=== PATIENT | male | born 1960 | race Caucasian/White ===

== ENCOUNTER 2023-11-07 21:46 | Emergency (ER) | payer OTHER, SELFPAY ==
[2023-11-07] VITALS (7 sets, daily range): BP systolic 156–192; BP diastolic 91–102; PULSE 55–68; RESP 20; TEMP 35.3–37.2; O2SAT 97–100
--- NOTE | ~2023-11-07 | XR_ITS ---
Portable chest x-ray Comparison: None Clinical History: Hypoglycemia Findings: There is mild haziness in the lung bases and peripheral upper lobe. Cardiomediastinal marcie houette is prominent, status post aortic valve replacement. Bones and soft tissues are unremarkable. Impression: Peripheral and bibasilar haziness. Findings could reflect chronic interstitial disease versus possibl y mild pulmonary edema or atypical infection. Correlate clinically. Consider CT to further evaluate. Status post aortic valve placement. Reviewed, dictated and finalized at location . E CLERK Impression: Peripheral and bibasilar haziness. Findings could reflect chronic interstitial disease versus possibly mild pulmonary edema or atypical infection. Correlate c linically. Consider CT to further evaluate. Status post aortic valve placement.
--- NOTE | 2023-11-07 22:03 | ECG_ITS ---
Measurements Intervals [place] Rate: 51 P: -20 IA: 237 QRS: -44 QRSD: 107 T: 109 QT: 436 QTc: 405 Interpretive Statements SINUS BRADYCARDIA WITH FIRST DEGREE AV BLOCK LEFT AXIS DEVIATION LEFT VENTRICULAR HYPERTROPHY AND ST-T CHANGE ANTEROSEPTAL INFARCT, AGE INDETERMINATE BASELINE ARTIFACT- I, II, III, AVR, AVL, V4-V6 ABNORMAL ECG NO PREVIOUS ECG AVAILABLE FOR COMPARISON Electronically Signed On 11-08-2023 6:41:17 [employer] by Richar Griffin D.O.
[2023-11-07 23:54] LABS: Basophils Absolute Auto 0.1 K/mm3 (0.0-0.1); Basophils Percent Auto 0.8 % (0.2-1.2); Eosinophils Absolute Auto 0.2 K/mm3 (0-0.3); Hematocrit 57.9 % (42.0-52.0); Hemoglobin 17.1 g/dL (14.0-18.0); Immature Granulocyte Absolute 0.07 K/mm3 (0.00-0.031); Immature Granulocyte Percent A 0.4 % (0-0.5); Immature Platelet Fraction Pct 12.5 % (0.9-11.2); Lymphocytes Percent Auto 23.2 % (18.3-44.2); Mean Corpuscular HGB Conc 29.5 g/dl (32-36); Mean Corpuscular Hemoglobin 23.3 pg (26-34); Mean Platelet Volume 11.2 fl (7.4-10.4); Monocytes Absolute Auto 1.3 K/mm3 (0.1-0.6); Monocytes Percent Auto 7.8 % (2.6-8.5); Neutrophils Absolute Auto 11.2 K/mm3 (1.3-6.7); Neutrophils Percent Auto 66.8 % (45.5-73.1); Platelet Count Result 136 k/mm3 (150-375); Red Blood Count 7.33 M/mm3 (4.6-6.20); Red Cell Distribution Width 21.7 % (11.5-14.5); White Blood Count 16.8 K/mm3 (4.5-10.0)
[2023-11-08 00:12] VITALS: BP 165/90; PULSE 60; RESP 16; O2SAT 99
[2023-11-08 00:24] LABS: Large Platelets Present; Platelet Estimate Adequate (Adequate)
[2023-11-08 00:25] LABS: Anisocytosis 1+ (NORMAL); Poikilocytosis 1+ (NORMAL); Schistocytes Rare (NORMAL)
[2023-11-08 01:15] LABS: Alanine Aminotransferase 19 U/L (6-50); Albumin Level 3.9 g/dL (3.5-5.1); Alkaline Phosphatase 120 U/L (38-126); Anion Gap 11 mmol/L (8-16); Aspartate Amino Transferase 27 U/L (17-59); Bilirubin,Total 0.6 mg/dL (0.2-1.3); Blood Urea Nitrogen 31 mg/dL (9-20); Calcium 9.1 mg/dL (8.4-10.2); Carbon Dioxide 22 mmol/L (22-30); Chloride 100 mmol/L (98-107); Estimated CRCL calculation 55 ml/min; Estimated Glomerular Filt Rate 44; Glucose 282 mg/dL (65-110); Potassium 4.4 mmol/L (3.4-5.0); Sodium 133 mmol/L (137-145)
--- NOTE | 2023-11-08 01:25 | ED.GENADULT ---
HPI - General Adult General Chief complaint: Altered Mental Status Stated complaint: low blood sugar, decreased responsiveness. Time Seen by Provider: 11/08/23 00:29 Source: patient and family () Limitations: no limitations History of Present Illness HPI narrative: Patient is a 62-year-old male presents to the emergency department for a period of poor responsiveness. Around 7:00 p.m. patient had an episode of decreased responsiveness which she has had the past and he has a continuous blood sugar monitoring device and his blood sugar was in the low 50s and administered glucagon pen and also gave him normal sugar however patient was not rapidly improving as he has done and passed and they called EMS which they have had to do many times in the past and they gave him some glucose paste and patient improved. Patient denies any current complaints and feels well. Patient has been ambulatory without any difficulty. Patient denies any recent injuries or recent illness. Patient admits to being a diabetic and uses insulin and has been taking his insulin as prescribed without any recent changes to his medications and prior to the onset of the low blood sugar he 80 in a meal of spaghetti and meatballs and was in his normal state of health. Patient denies use of oral diabetic medications. Patient was sitting down during the period of decreased responsiveness did not fall or injure himself. Patient was also told that his heart rate was low upon EMS arrival in the 50s and he usually is in the 60s and also takes metoprolol regularly without any recent changes to his medications and sent him here for further evaluation. Patient admits to history of pancreatic transplant service at [facility] for pancreatic cancer is currently in remission for the past 5 years and is not on any chemotherapy. Patient denies chest pain, shortness of breath, cough, fever, urinary discomfort, diarrhea, melena, hematochezia, vomiting, nausea, abdominal pain, numbness, weakness, sore throat, nasal congestion, headache, vision changes, rash. Related Data Allergies Allergy/AdvReac Type Severity Reaction Status Date / Time No Known Allergies Allergy Verified 11/08/23 01:30 Review of Systems Review of Systems: A 10 system review of systems was completed on the patient and is negative except for what is stated in the HPI. Nursing and ancillary documentation was reviewed. PMFSH Comments At time of signature, I have reviewed and agree with nursing past medical, surgical, social and family history unless otherwise noted. Please see the nursing chart for further information. There is no relevant family history pertinent to the presenting complaint. Exam Narrative: CONST: No acute distress. Well nourished. HENMT: Head is normocephalic and atraumatic. Tacky mucous membranes. No posterior oropharynx erythema. EYES: No conjunctival icterus, injection, or pallor. PERRL. NECK: No meningeal signs. RESP: Able to speak in full sentences. Normal respiratory effort. CTAB. CARDIO: Regular rate. Regular rhythm. 2+ DP and radial pulses bilaterally. GI: Nondistended. No tenderness to palpation. Soft. Multiple abdominal surgical scars. : No CVA tenderness to palpation. SKIN: No rashes or lesions noted on exposed skin. NEURO: Oriented x3. Moves all extremities. No focal neurological deficits. EXTREM/MSK/BACK: No pedal edema. PSYCH: Normal affect. Course Vital Signs Vital signs: Vital Signs Temperature 98.9 F 11/07/23 21:56 Pulse Rate 55 L 11/07/23 21:56 Respiratory Rate 20 11/07/23 21:56 Blood Pressure 156/91 H 11/07/23 21:56 Pulse Oximetry 98 11/07/23 21:56 Oxygen Delivery Room Air 11/07/23 21:56 Temperature 98 F 11/08/23 02:50 Pulse Rate 60 11/08/23 02:50 Respiratory Rate 15 11/08/23 02:50 Blood Pressure 153/78 H 11/08/23 02:50 Pulse Oximetry 99 11/08/23 02:50 Oxygen Delivery Room Air 11/07/23 22:47 Medical
[2023-11-08] MEDS: Please add drug allergy info to patient profile. 1 EACH XX (01:30)
[2023-11-08] MEDS: SODIUM CHLORIDE 0.9% IV 1,000 ML 999 ML IV CONT (01:34)
[2023-11-08 01:43] VITALS: PULSE 64; RESP 18
[2023-11-08 01:45] VITALS: PULSE 64; RESP 12
[2023-11-08 01:47] VITALS: BP 169/94; PULSE 64; RESP 25
[2023-11-08 01:47] LABS: Lipase 32 U/L (23-300)
[2023-11-08 02:00] LABS: Troponin I < 0.012 ng/mL (0.000-0.034)
[2023-11-08 02:36] LABS: Appearance Urine Clear (Clear); Bilirubin Urine Negative (Negative); Blood Urine Negative (Negative); Color Urine Yellow (Yellow); Glucose Urine UA 3+ mg/dL (Negative); Ketones Urine Negative (Negative); Leukocyte Esterase Ur Negative LEU/UL (Negative); Nitrate Urine Negative (Negative); Protein Urine Negative (Negative); Specific Grav Ur 1.011 (1.001-1.035); Urobilinogen Urine 0.2 mg/dL (<2.0); pH Urine 6.5 (5.0-9.0)
[2023-11-08 02:37] LABS: Glucose Point of Care 408 mg/dl (65-105)
[2023-11-08 02:50] VITALS: BP 153/78; PULSE 60; RESP 15; TEMP 36.6; O2SAT 99
[2023-11-08 03:06] LABS: Add Urine Microscopic? NO
[2023-11-08 07:09] LABS: Glucose Point of Care 172 mg/dl (65-105)
== END 2023-11-08 02:51 | disposition home or self-care (01) ==
PROVIDERS: Radiology Diagnostic Radiology; Emergency Provider Student in an Organized Health Care Education/Training Program
DX: E11.649 Type 2 diabetes mellitus with hypoglycemia without coma (principal); Z94.83 Pancreas transplant status; Z95.2 Presence of prosthetic heart valve; Z85.07 Personal history of malignant neoplasm of pancreas; Z79.4 Long term (current) use of insulin; R00.1 Bradycardia, unspecified; I51.7 Cardiomegaly; R94.31 Abnormal electrocardiogram [ECG] [EKG]
CPT/HCPCS: 36415; 71045; 80053; 81003; 82948; 83690; 83735; 84443; 84484; 85025; 85055; 93005; 96360; 99284; J7030

== ENCOUNTER 2025-08-09 08:56 | Emergency (ER) | payer BC, SELFPAY ==
--- NOTE | ~2025-08-09 | XR_ITS ---
Examination: XR ankle RT min 3V Clinical History: ankle pain, wound vac, diabetes, r/o osteomyelitis Comparison: None Technique: 4 views right ankle Findings/impression: 1. No evidence of osteomyelitis. 2. No fracture or other acute bony abnormality. Reviewed, dictated and finalized at location R.
[2025-08-09 09:11] VITALS: BP 129/85; PULSE 58; RESP 20; TEMP 36.1; O2SAT 99
[2025-08-09 09:16] VITALS: RESP 20
--- NOTE | 2025-08-09 09:27 | ED.GENADULT ---
HPI - General Adult General Chief complaint: Recheck/Abnormal Lab/Rx Stated complaint: surgery 07/27 concern for sepsis per Time Seen by Provider: 08/09/25 09:15 History of Present Illness HPI narrative: 64-year-old male history of liver transplant, pancreatic cancer, AFib Sheryl presents to the ER complaining of ?not feeling well?. states that patient's temperature this morning was 957 is concerned he sepsis. Patient has a wound VAC to his right lateral malleolus after surgical debridement. Patient is under the care of Dr. Herrera from [facility]. Patient denies fevers, cough, congestion, abdominal pain, ankle pain. States has not observed purulent drainage from the wound VAC. Related Data Allergies Allergy/AdvReac Type Severity Reaction Status Date / Time No Known Allergies Allergy Verified 08/09/25 08:58 Review of Systems Review of Systems: All systems reviewed & are unremarkable except as noted in HPI and below Exam Const: General: healthy appearing, no acute distress and alert Nutritional Appearance: well nourished Orientation/consciousness: patient oriented x3 Limitations: no limitations HENMT: Head: normal to inspection Eyes: Conjunctivae: conjunctivae normal Pupils: Equal, round and reactive pupils present Chest: Chest palpation & inspection: normal inspection of the chest Resp: Effort & Inspection: normal respiratory effort Auscultation: clear to auscultation bilaterally Cardio: Rate: regular rate Rhythm: regular rhythm Skin: General skin exam: normal color Other: RLE: Wound vac noted to lateral malleolus. No purulent discharge noted. No surrounding erythema, edema or warmth. NVDI Neuro: General: patient oriented x3, moves all extremities and CN's II-XI intact bilaterally Speech: normal speech Gait exam (Neuro): Normal gait present Extrem: General: normal to inspection and no pedal edema Psych: Mental Status: mental status grossly normal Affect: normal affect Attitude: cooperative Course Vital Signs Vital signs: Vital Signs Temperature 36.1 C L 08/09/25 09:11 Pulse Rate 58 L 08/09/25 09:11 Respiratory Rate 20 08/09/25 09:11 Blood Pressure 129/85 08/09/25 09:11 Pulse Oximetry 99 08/09/25 09:11 Temperature 36.1 C L 08/09/25 09:11 Pulse Rate 62 08/09/25 10:53 Respiratory Rate 18 08/09/25 10:53 Blood Pressure 136/86 08/09/25 10:53 Pulse Oximetry 98 08/09/25 10:53 Medical Decision Making MDM Narrative Medical decision making narrative: In summary: 64-year-old male presents to the ER of the concerning for possible sepsis. The patient recently had Vital Signs Vital Signs: Vital Signs Temperature 36.1 C L 08/09/25 09:11 Pulse Rate 58 L 08/09/25 09:11 Respiratory Rate 20 08/09/25 09:11 Blood Pressure 129/85 08/09/25 09:11 Pulse Oximetry 99 08/09/25 09:11 Temperature 36.1 C L 08/09/25 09:11 Pulse Rate 62 08/09/25 10:53 Respiratory Rate 18 08/09/25 10:53 Blood Pressure 136/86 08/09/25 10:53 Pulse Oximetry 98 08/09/25 10:53 Lab Data 08/09/25 09:40 08/09/25 09:40 Labs: Lab Results 08/09/25 08/09/25 08/09/25 Range/Units 09:12 09:40 09:46 WBC 9.3 (4.5-10.0) K/mm3 RBC 7.43 H (4.6-6.20) M/mm3 Hgb 16.3 (14.0-18.0) g/dL Hct 53.8 H (42.0-52.0) % MCV 72.4 L (80-100) fl MCH 21.9 L (26-34) pg MCHC 30.3 L (32-36) g/dl RDW 20.5 H (11.5-14.5) % Plt Count 246 D (150-375) k/mm3 MPV 9.2 (7.4-10.4) fl Immature Gran % (Auto) 0.3 (0-0.5) % Neut % (Auto) 53.9 (45.5-73.1) % Lymph % (Auto) 32.2 (18.3-44.2) % [place] % (Auto) 10.8 H (2.6-8.5) % Eos % (Auto) 1.6 (0-4.4) % Baso % (Auto) 1.2 (0.2-1.2) % Lymph # (Auto) 3.01 (0.9-3.2) K/mm3 [place] # (Auto) 1.0 H (0.1-0.6) K/mm3 Eos # (Auto) 0.2 (0-0.3) K/mm3 Baso # (Auto) 0.1 (0.0-0.1) K/mm3 Abs Immat Gran (auto) 0.03 (0.00-0.031) K/mm3 Absolute Neuts (auto) 5.0 (1.3-6.7) K/mm3 Absolute Nucleated RBC 0.000 (0.0-0.012) K/mm3 Band Neutrophils % Not Reportable Nucleated RBC % 0.0 (0.0-0.2) % Platelet Estimate Adequate (Adequate) Anisocytosis 1+ Microcytosis Occasional (NORMAL) Schistocytes None seen ESR 1 (0-20) mm/hr Sodium 133 L (137-145) mmol/L Potassium 4.5 (3.4-5.0) mmol/L Chloride 102 (98-107) mmol/L Carbon Dioxide 21 L (22-30) mmol/L Anion Gap 10 (4-12) mmol/L BUN 29 H (9-20) mg/dL Creatinine 1.43 H (0.7-1.3) mg/dL Estim Creat Clear Calc 52 ml/min Estimated GFR 50 L (59 - ) Glucose 273 H (65-110) mg/dL POC Capillary Glucose 267 H (65-105) mg/dl Lactic Acid 1.2 (0.7-2.0) mmol/L Calcium 9.5 (8.4-10.2) mg/dL Total Bilirubin 0.8 (0.2-1.3) mg/dL AST 28 (17-59) U/L ALT 22 (6-50) U/L Alkaline Phosphatase 73 (38-126) U/L C-Reactive Protein 7.2 H (<1.0) mg/dL Total Protein 7.7 (6.3-8.2) g/dL Albumin 3.9 (3.5-5.1) g/dL Influenza A (RT-PCR) Negative (Negative) Influenza B (RT-PCR) Negative (Negative) RSV (RT-PCR) Negative (Negative) SARS-CoV-2 RNA (RT-PCR) Negative (Negative) Discharge Plan Discharge Clinical Impression: Fatigue, Chronic kidney disease, Hyperglycemia Patient Disposition: Home Condition: Stable Instructions: Antibiotic Form, Fatigue (ED) Patient Language: Azeri Follow-up/Referrals: UNKNOWN,DOCTOR [Non-Staff] Time of Disposition: 12:00
--- OUTSIDE RECORDS SUMMARY | 2025-08-09 09:30 | XMS_ITS | Encounter Summary ---
Author Organization [facility] Address [address] [place] [address] Care Team Providers Care Kitchen Mechanic Name Role Phone Juan Laguerre MD Primary Care Provider [phone] Bro AWAN MD, Aubrey Lane Unavailable [phone] Jaki Nieves PhD Unavailable [phone] Source Comments In the event that this is information that is protected by federal Confidentiality of Substance User Disorder Patient Records, 42 CFR Part 2 prohibits the unauthorized disclosure of these records.[facility] Encounter Details Date Type Department Care Team (Late Contact Info) Description 07/08/2023 Orders Only [place] Transplant Surgery [address] [facility]th [address] [place] [address] Mee Michele RN Social History Tobacco Use Types Packs/Day Years Used Date Smoking Tobacco: Former Cigarettes - 2011 Smokeless Tobacco: Never Alcohol Use Standard Drinks/Week Comments No 0 (1 standard drink = 0.6 oz pur e alcohol) Sex and Gender Information Value Date Recorded Sex Assigned at Not on file Legal Sex Male 6:30 PM CDT Gender Identity Not on file Sexual Orientation Not on file documented as of this encounter Plan of Treatment Upcoming Encounters Date Type Department Care Team ([facility] Contact Info) Description 07/15/2026 1:00 PM CDT Office Visit [place] Transplant Surgery [address] [facility] [place], [place] [id number] Apt confirmed-EH documented as of this encounter Visit Diagnoses Diagnosis Kidney transplant recipient 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) Liver replaced by transplant Encounter for monitoring immunomodulating therapy Encounter for therapeutic drug monitoring documented in this encounter Care Teams Kitchen Mechanic Relationship Specialty Start Date End Date Juan Laguerre MD [address] [id number] PCP - General Family Medicine 01/02/18 Aubrey Crabtree III, MD [address] [address] Hematology and Medical Oncology 10/01/18 Jaki Nieves, PhD [address] [facility] [address] [place] [address] Genetic Counseling 11/27/18 documented as of this encounter
--- OUTSIDE RECORDS SUMMARY | 2025-08-09 09:30 | XMS_ITS | Encounter Summary ---
Author Organization [facility] Address [address] [place] [address] Care Team Providers Care Professor Of English Name Role Phone Juan Laguerre MD Primary Care Provider [phone] Bro AWAN MD, Aubrey Lane Unavailable [phone] Jaki Nieves PhD Unavailable [phone] Source Comments In the event that this is information that is protected by federal Confidentiality of Substance User Disorder Patient Records, 42 CFR Part 2 prohibits the unauthorized disclosure of these records.[facility] Encounter Details Date Type Department Care Team (Late Contact Info) Description 06/17/2023 Orders Only [place] Transplant Surgery [address] [facility] [place] [address] Mee Michele RN Social History Tobacco Use [...] Upcoming Encounters Date Type Department Care Team ([facility] Contact Info) Description 07/15/2026 1:00 PM CDT Office Visit [place] Transplant Surgery [address] [facility] [place], [place] [address] Apt confirmed-EH documented as of this encounter Visit Diagnoses Diagnosis Kidney transplant recipient 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) Liver replaced by transplant Encounter for monitoring immunomodulating therapy Encounter for therapeutic drug monitoring documented in this encounter Care Teams Professor Of English Relationship Specialty Start Date End Date Juan Laguerre MD [address] [phone] PCP - General Family Medicine 01/02/18 Aubrey Crabtree III, MD [address] [address] Hematology and Medical Oncology 10/01/18 Jaki Nieves, PhD [address] [facility] [address] [place] [address] Genetic Counseling 11/27/18 documented as of this encounter
--- OUTSIDE RECORDS SUMMARY | 2025-08-09 09:30 | XMS_ITS | Encounter Summary ---
Author Organization [facility] Address [address] [place] [address] Care Team Providers Care Bottle House Quality Control Technician Name Role Phone Juan Laguerre MD Primary Care Provider [phone] Bro AWAN MD, Aubrey Lane Unavailable [phone] Jaki Nieves PhD Unavailable [phone] Source Comments In the event that this is information that is protected by federal Confidentiality of Substance User Disorder Patient Records, 42 CFR Part 2 prohibits the unauthorized disclosure of these records.[facility] Encounter Details Date Type Department Care Team (Late Contact Info) Description 04/08/2023 Orders Only [place] Transplant Surgery [address] [facility] [place] [address] Mee Michele RN Social History Tobacco Use [...] Upcoming Encounters Date Type Department Care Team ([facility] Contact Info) Description 07/15/2026 1:00 PM CDT Office Visit [place] Transplant Surgery [address] [facility] [place], [place] [address] Apt confirmed-EH documented as of this encounter Visit Diagnoses Diagnosis Kidney transplant recipient 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) Liver replaced by transplant Encounter for monitoring immunomodulating therapy Encounter for therapeutic drug monitoring documented in this encounter Care Teams Bottle House Quality Control Technician Relationship Specialty Start Date End Date Juan Laguerre MD [address] [phone] PCP - General Family Medicine 01/02/18 Aubrey Crabtree III, MD [address] [address] Hematology and Medical Oncology 10/01/18 Jaki Nieves, PhD [address] [facility] [address] [place] [address] Genetic Counseling 11/27/18 documented as of this encounter
--- OUTSIDE RECORDS SUMMARY | 2025-08-09 09:30 | XMS_ITS | Encounter Summary ---
Author Organization [facility] Address [address] [place] [address] Care Team Providers Care Photograph Inspector Name Role Phone Juan Laguerre MD Primary Care Provider [phone] Bro AWAN MD, Aubrey Lane Unavailable [phone] Jaki Nieves PhD Unavailable [phone] Source Comments In the event that this is information that is protected by federal Confidentiality of Substance User Disorder Patient Records, 42 CFR Part 2 prohibits the unauthorized disclosure of these records.[facility] Encounter Details Date Type Department Care Team (Late Contact Info) Description 04/15/2023 Orders Only [place] Transplant Surgery [address] [facility] [place] [address] Mee Michele RN Social History Tobacco Use [...] Upcoming Encounters Date Type Department Care Team ([facility] Contact Info) Description 07/15/2026 1:00 PM CDT Office Visit [place] Transplant Surgery [address] [facility] [place], [place] [address] Apt confirmed-EH documented as of this encounter Visit Diagnoses Diagnosis Kidney transplant recipient 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) Liver replaced by transplant Encounter for monitoring immunomodulating therapy Encounter for therapeutic drug monitoring documented in this encounter Care Teams Photograph Inspector Relationship Specialty Start Date End Date Juan Laguerre MD [address] [phone] PCP - General Family Medicine 01/02/18 Aubrey Crabtree III, MD [address] [address] Hematology and Medical Oncology 10/01/18 Jaki Nieves, PhD [address] [facility] [address] [place] [address] Genetic Counseling 11/27/18 documented as of this encounter
--- OUTSIDE RECORDS SUMMARY | 2025-08-09 09:30 | XMS_ITS | Encounter Summary ---
Author Organization [facility] Address [address] [place] [address] Care Team Providers Care Residential Service Technician Name Role Phone Juan Laguerre MD Primary Care Provider [phone] Bro AWAN MD, Aubrey Lane Unavailable [phone] Jaki Nieves PhD Unavailable [phone] Source Comments In the event that this is information that is protected by federal Confidentiality of Substance User Disorder Patient Records, 42 CFR Part 2 prohibits the unauthorized disclosure of these records.[facility] Encounter Details Date Type Department Care Team (Late Contact Info) Description 03/25/2023 Orders Only [place] Transplant Surgery [address] [facility] [place] [address] Mee Michele RN Social History Tobacco Use [...] Upcoming Encounters Date Type Department Care Team ([facility] Contact Info) Description 07/15/2026 1:00 PM CDT Office Visit [place] Transplant Surgery [address] [facility] [place], [place] [address] Apt confirmed-EH documented as of this encounter Visit Diagnoses Diagnosis Kidney transplant recipient 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) Liver replaced by transplant Encounter for monitoring immunomodulating therapy Encounter for therapeutic drug monitoring documented in this encounter Care Teams Residential Service Technician Relationship Specialty Start Date End Date Juan Laguerre MD [address] [phone] PCP - General Family Medicine 01/02/18 Aubrey Crabtree III, MD [address] [address] Hematology and Medical Oncology 10/01/18 Jaki Nieves, PhD [address] [facility] [address] [place] [address] Genetic Counseling 11/27/18 documented as of this encounter
--- OUTSIDE RECORDS SUMMARY | 2025-08-09 09:30 | XMS_ITS | Encounter Summary ---
Author Organization [facility] Address [address] [place] [address] Care Team Providers Care Talent Acquisition Consultant Name Role Phone Juan Laguerre MD Primary Care Provider [phone] Bro AWAN MD, [place] Lane Unavailable [phone] Jaki Nieves PhD Unavailable [phone] Source Comments In the event that this is information that is protected by federal Confidentiality of Substance User Disorder Patient Records, 42 CFR Part 2 prohibits the unauthorized disclosure of these records.[facility] Encounter Details Date Type Department Care Team (Late st Contact Info) Description 04/06/2019 Orders Only NM Transplant Surgery [address] [facility], 19th Floor [address] [place], [place] [address] Cathleen Gallegos MD [address] [facility] [address], [place] [address] Social History Tobacco Use Types Packs/Day Years [...] Upcoming Encounters Date Type Department Care Team (Late st Contact Info) Description 07/15/2026 1:00 PM CDT Office Visit [place] Transplant Surgery [address] [facility], 19th Floor [address] [place] [address] Apt confirmed-EH documented as of this encounter Procedures Procedure Name Priority Date/Time Associated Diagnosis Comments CBC AND DIFFERENTIAL Routine 04/09/2019 8:12 AM CDT Kidney transplant 01/02/2008 Liver transplant 01/02/2008 HEPATIC FUNCTION PANEL Routine 04/09/2019 8:12 AM CDT Kidney transplant 01/02/2008 Liver transplant 01/02/2008 BASIC METABOLIC PANEL Routine 04/09/2019 8:12 AM CDT Kidney transplant 01/02/2008 Liver transplant 01/02/2008 documented in this encounter Results * Hepatic function panel (04/09/2019 8:12 AM CDT) Total Bilirubin - External 0.4 0.3 - 1.0 mg/dL EXTERNAL LAB Direct Bilirubin - External 0.06 0.03 - 0.18 mg/dL EXTERNAL LAB Alkaline Phos - External 73 34 - 104 U/L EXTERNAL LAB AST (SGOT) - External 15 13 - 39 U/L EXTERNAL LAB ALT (SGPT) - External 11 7 - 52 U/L EXTERNAL LAB Total Protein - External 6.9 6.4 - 8.9 g/dL EXTERNAL LAB Albumin - External 3.9 3.5 - 5.7 g/dL EXTERNAL LAB Blood specimen (specimen) 04/09/2019 8:12 AM CDT Narrative EXTERNAL LAB - 04/16/2019 3:30 PM CDT Verified by Monie Siddiqui on 04/16/2019. us Cathleen Gallegos MD CHEMISTRY ORDERABLES Final Resul t EXTERNAL LAB * (ABNORMAL) Basic Metabolic Panel (04/09/2019 8:12 AM CDT) Glucose - External 200(H) 70 - 105 mg/dL EXTERNAL LAB Urea Nitrogen - External 28(H) 7 - 25 mg/dL EXTERNAL LAB Creatinine - External 1.6(H) 0.7 - 1.3 mg/dL EXTERNAL LAB Sodium - External 137 136 - 145 mEq/L EXTERNAL LAB Potassium - External 5.3(H) 3.5 - 5.1 mEq/L EXTERNAL LAB Chloride - External 105 98 - 107 mEq/L EXTERNAL LAB Calcium - External 9.0 8.6 - 10.3 mg/dL EXTERNAL LAB Anion Gap - External 11.3 7.0 - 15.0 mEq/L EXTERNAL LAB GFR(Others) - External 44.6(L) >60.0 ml/min EXTERNAL LAB GFR() - External 53.9(L) >60.0 ml/min EXTERNAL LAB Blood specimen (specimen) 04/09/2019 8:12 AM CDT Narrative EXTERNAL LAB - 04/16/2019 3:30 PM CDT Verified by Monie Siddiqui on 04/16/2019. us Cathleen Gallegos MD CHEMISTRY ORDERABLES Final Resul t EXTERNAL LAB * (ABNORMAL) CBC with Differential (04/09/2019 8:12 AM CDT) Pathologist [facility] White Blood Cells - External 9.7 4.0 - 10.0 uL EXTERNAL LAB Hemoglobin - External 12.6(L) 13.7 - 17.5 g/dL EXTERNAL LAB Hematocrit - External 40.4 40.1 - 51.0 % EXTERNAL LAB Platelets - External 252 163 - 369 uL EXTERNAL LAB Red Blood Cells - External 4.68 4.63 - 6.08 uL EXTERNAL LAB MCV - External 86 79 - 95 fL EXTERNAL LAB Neutrophils Abs (k/uL) - External 5,694(L) EXTERNAL LAB Lymph Absolute - External 1,930 cells/uL EXTERNAL LAB [place] Absolute - External 1,351(H) cells/uL EXTERNAL LAB - External 579(H) 0 - 300 cells/uL EXTERNAL LAB Basophil Absolute - External 97 0 - 100 cells/uL EXTERNAL LAB Lymphocytes - External 20 19 - 40 % EXTERNAL LAB Monocytes - External 14(H) 4 - 12 % EXTERNAL LAB Eosinophils - External 6 % EXTERNAL LAB Basophils - External 1 % EXTERNAL LAB Blood specimen (specimen) 04/09/2019 8:12 AM CDT Narrative EXTERNAL LAB - 04/16/2019 3:30 PM CDT Verified by Monie Siddiqui on 04/16/2019. us Cathleen Gallegos MD HEMATOLOGY ORDERABLES Final Resu lt EXTERNAL LAB documented in this encounter Visit Diagnoses Diagnosis Kidney transplant 01/02/2008 Liver transplant 01/02/2008 Liver replaced by transplant documented in this encounter Additional Health Concerns Infection Onset Date Last Indicated Resolved Time COVID-19 Comment:Tested + on 09/0109/01/2020 09/05/2020 09/25/2020 12: 31 AM NONDESTRUCTIVE TESTER documented as of this encounter Care Teams Talent Acquisition Consultant Relationship Specialty Start Date End Date Juan Laguerre MD [address] [facility] [address] [place] [address] PCP - General Family Medicine 01/02/18 [place] Crabtree III, MD [address] [facility] [address] [place] [address] Hematology and Medical Oncology 10/01/18 Jaki Nieves, PhD [address] [facility] [address] [place] [address] Genetic Counseling 11/27/18 documented as of this encounter
--- OUTSIDE RECORDS SUMMARY | 2025-08-09 09:30 | XMS_ITS | Encounter Summary ---
Author Organization [facility] Address [address] [place] [address] Care Team Providers Care Devulcanizer Head Name Role Phone Juan Laguerre MD Primary Care Provider [phone] Bro AWAN MD, [place] Lane Unavailable [phone] Jaki Nieves PhD Unavailable [phone] Source Comments In the event that this is information that is protected by federal Confidentiality of Substance User Disorder Patient Records, 42 CFR Part 2 prohibits the unauthorized disclosure of these records.[facility] Encounter Details Date Type Department Care Team (Late Contact Info) Description 06/10/2023 Orders Only NM Transplant Surgery [address] [facility], 19th Floor [address] [place] [address] Mee Michele RN Social History Tobacco Use [...] Upcoming Encounters Date Type Department Care Team ([facility] Contact Info) Description 07/15/2026 1:00 PM CDT Office Visit [place] Transplant Surgery [address] [facility], 19th Floor [address] [place], [place] [address] Apt confirmed-EH documented as of this encounter Visit Diagnoses Diagnosis Kidney transplant recipient 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
--- OUTSIDE RECORDS SUMMARY | 2025-08-09 09:30 | XMS_ITS | Encounter Summary ---
Author Organization [facility] Address [address] [place] [address] Care Team Providers Care Peripheral Vascular Tech Name Role Phone Juan Laguerre MD Primary Care Provider [phone] Bro AWAN MD, [place] Lnae Unavailable [phone] Jaki Nieves PhD Unavailable [phone] Source Comments In the event that this is information that is protected by federal Confidentiality of Substance User Disorder Patient Records, 42 CFR Part 2 prohibits the unauthorized disclosure of these records.[facility] Encounter Details Date Type Department Care Team (Late Contact Info) Description 01/30/2018 Clinical Update NM Transplant Surgery [address] [facility], 19th Floor [address] [place] [address] Jhon Yoon Social History Tobacco Use Types Packs/Day Years Used Date Smoking Tobacco: Former Cigarettes Q uit: 2011 Smokeless Tobacco: Never Alcohol Use Standard [...] Encounters Date Type Department Care Team (Late Contact Info) Description 07/15/2026 1:00 PM CDT Office Visit [place] Transplant Surgery [address] [facility], 19th Floor [address] [place] [address] Apt confirmed-EH documented as of this encounter Visit Diagnoses Not on filedocumented in this encounter Additional Health Concerns Infection Onset Date Last Indicated Resolved Time COVID-19 Comment:Tested + on 09/0109/01/2020 09/05/2020 09/25/2020 12: 31 AM SYSTEM ANALYST documented as of this encounter Care Teams Peripheral Vascular Tech Relationship Specialty Start Date End Date Juan Laguerre MD [address] [facility] [address], [place] [address] PCP - General Family Medicine 01/02/18 [place] Crabtree III, MD [address] [facility] [address] [place] [address] Hematology and Medical Oncology 10/01/18 Jaki Nieves, PhD [address] [facility] [address] [place] [address] Genetic Counseling 11/27/18 documented as of this encounter
--- OUTSIDE RECORDS SUMMARY | 2025-08-09 09:30 | XMS_ITS | Encounter Summary ---
Author Organization [facility] Address [address] [place] [address] Care Team Providers Care Feltmaker Name Role Phone Juan Laguerre MD Primary Care Provider [phone] Bro AWAN MD, [place] [address] Unavailable [phone] Jaki Nieves PhD Unavailable [phone] Source Comments In the event that this is information that is protected by federal Confidentiality of Substance User Disorder Patient Records, 42 CFR Part 2 prohibits the unauthorized disclosure of these records.[facility] Encounter Details Date Type Department Care Team (Late Contact Info) Description 04/29/2023 Orders Only NM Transplant Surgery [address] [facility], 19th Floor [address] [place] [address] Mee Michele RN Social History Tobacco Use [...] Upcoming Encounters Date Type Department Care Team ([facility] Contact Info) Description 07/15/2026 1:00 PM CDT Office Visit NM Transplant Surgery [address] [facility], 19th Floor [address] [place], [place] [address] Apt confirmed-EH documented as of this encounter Visit Diagnoses Diagnosis Kidney transplant recipient 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
--- OUTSIDE RECORDS SUMMARY | 2025-08-09 09:30 | XMS_ITS | Encounter Summary ---
Author Organization [facility] Address [facility] [facility] [place] [address] Care Team Providers Care Batchmaker Name Role Phone Anh Cool Primary Care Provider [phone] Encounter Details Date Type Department Care Team (Late st Contact Info) Description 07/23/2025 [facility] Orthopedics [address] [place] [address], [address] [phone] Document, Scanned Social History Tobacco Use Types Packs/Day Years Used Date Smoking Tobacco: Former Cigarettes 2011 Smokeless Tobacco: Never Alcohol Use Standard Drinks/Week Comments Not Currently 0 (1 standard drink = 0.6 oz pur e alcohol) AUDIT-C Answer Date Recorded Q1: How often do you have a drink containing alcohol? Never 03/09/2025 Q2: How many drinks containi ng alcohol do you have on a typical day when you are drinking? Patient does not drink Q3: How often do you have si x or more drinks on one occasion? Never 03/09/2025 Sex and Gender Information Value Date Recorded Sex Assigned at Male 01/12/2024 10:15 AM CDT Legal Sex Male 1:47 PM FISHER POT Gender Identity Male 01/12/2024 10:15 AM CDT Sexual Orientation Straight 01/12/2024 10 :15 AM CDT documented as of this encounter Functional Status * Is person deaf or have serious hearing difficulty? Answer Date of Assessment Author No 06/10/2025 3:21 PM CDT Jaime Barnett RN * Is person blind or have serious difficulty seeing? Answer Date of Assessment Author No 06/10/2025 3:21 PM CDT Jaime Barnett RN * Does person have serious difficulty walking/climbing stairs? Answer Date of Assessment Author Yes 06/10/2025 3:21 PM JOSSELINT Jaime Barnett RN * Does person have difficulty dressing/bathing? Answer Date of Assessment Author No 06/10/2025 3:21 PM JOSSELINT Jaime Barnett RN * Does person have difficulty doing errands alone? Answer Date of Assessment Author Yes 06/10/2025 3:21 PM Jaime Egan RN documented as of this encounter Mental Status * Does person have difficulty concentrating/remembering/making decisions? Answer Entry Date Author No 06/10/2025 3:21 PM Jaime Egan RN documented in this encounter Plan of Treatment Upcoming Encounters Date Type Department Care Team (Late st Contact Info) Description 08/11/2025 8:45 AM CDT Office Visit [facility] Orthopedics [address] [place] [address] Cam Carey PA-C [address] [phone] 08/19/2025 9:00 AM CDT Office Visit [facility] - Ophthalmology [address] [place] [phone] Susannah Wu OD [address] [place] [address] [address] [place] [address] 09/08/2025 8:40 AM FISHER POT Office Visit [facility] Orthopedics [address] [place] [address] Leno Herrera DO [facility] [address] [place] [phone] 09/23/2025 11:20 AM FISHER POT Office Visit [facility] - Endocrinology [address] [place] [phone] Katja Li MD [address] [place] [address] [address] [place] [address] documented as of this encounter Visit Diagnoses Not on filedocumented in this encounter Care Teams Batchmaker Relationship Specialty Start Date End Date Anh Cool PCP - General Internal Medicine 03/09/25 08/03/25 documented as of this encounter
--- OUTSIDE RECORDS SUMMARY | 2025-08-09 09:30 | XMS_ITS | Encounter Summary ---
Author Organization [facility] Address [address] [place] [address] Care Team Providers Care Tail Edger Name Role Phone Juan Laguerre MD Primary Care Provider [phone] Bro AWAN MD, [place] [address] Unavailable [phone] Jaki Nieves PhD Unavailable [phone] Source Comments In the event that this is information that is protected by federal Confidentiality of Substance User Disorder Patient Records, 42 CFR Part 2 prohibits the unauthorized disclosure of these records.[facility] Encounter Details Date Type Department Care Team (Late Contact Info) Description 04/22/2023 Orders Only NM Transplant Surgery [address] [facility], 19th Floor [address] [place] [address] Mee Michele RN Social History Tobacco Use [...] Upcoming Encounters Date Type Department Care Team ([facility] Contact Info) Description 07/15/2026 1:00 PM CDT Office Visit [place] Transplant Surgery [address] [facility], 19th Floor [address] [place], [place] [address] Apt confirmed-EH documented as of this encounter Visit Diagnoses Diagnosis Kidney transplant recipient 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
--- OUTSIDE RECORDS SUMMARY | 2025-08-09 09:30 | XMS_ITS | Encounter Summary ---
Author Organization [facility] Address [address] [place] [address] Care Team Providers Care Tie Mill Operator Name Role Phone Anh Cool Primary Care Provider [phone] Encounter Details Date Type Department Care Team (Late st Contact Info) Description 07/30/2025 Results Follow-Up [facility] - [facility] Op [address] [place] [address] Leno Herrera DO [address] [place] [phone] Social History Tobacco Use Types Packs/Day Years Used Date Smoking Tobacco: Former Cigarettes 1 2011 Smokeless Tobacco: Never Alcohol Use Standard [...] AM CDT Legal Sex Male 1:47 PM DRUG SAFETY SCIENTIST Gender Identity Male 01/12/2024 10:15 AM CDT Sexual Orientation Straight 01/12/2024 10 :15 AM CDT documented as of this encounter Functional Status * Is person deaf or have serious hearing difficulty? Answer Date of Assessment Author No 07/27/2025 2:55 PM CDT Florence Black RN * Is person blind or have serious difficulty seeing? Answer Date of Assessment Author No 07/27/2025 2:55 PM CDT Florence Black RN * Does person have serious difficulty walking/climbing stairs? Answer Date of Assessment Author Yes 07/27/2025 2:55 PM CDT Florence Black RN * Does person have difficulty dressing/bathing? Answer Date of Assessment Author No 07/27/2025 2:55 PM CDT Florence Black RN * Does person have difficulty doing errands alone? Answer Date of Assessment Author Yes 07/27/2025 2:55 PM CDT Florence Black RN documented as of this encounter Mental Status * Does person have difficulty concentrating/remembering/making decisions? Answer Entry Date Author No 07/27/2025 2:55 PM CDT Florence Black RN documented in this encounter Plan of Treatment Upcoming Encounters Date Type Department Care Team (Late st Contact Info) Description 08/11/2025 8:45 AM CDT Office Visit [facility] Orthopedics [address] [place] [address] Cam Carey PA-C [address] [phone] 08/19/2025 9:00 AM CDT Office Visit [facility] - Ophthalmology [address] [place] [phone] Susannah Wu OD [address] [place] [address] [address] [place] [phone] 09/08/2025 8:40 AM DRUG SAFETY SCIENTIST Office Visit [facility] Orthopedics [address] [place] [address] Leno Herrera DO [address] [place] [place] [phone] 09/23/2025 11:20 AM DRUG SAFETY SCIENTIST Office Visit [facility] - Endocrinology [address] [place] [phone] Katja Li MD [address] [place] [address] documented as of this encounter Visit Diagnoses Not on filedocumented in this encounter Care Teams Tie Mill Operator Relationship Specialty Start Date End Date Anh Cool PCP - General Internal Medicine 03/09/25 08/03/25 documented as of this encounter
--- OUTSIDE RECORDS SUMMARY | 2025-08-09 09:30 | XMS_ITS | Encounter Summary ---
Author Organization [facility] Address [address] [place] [address] Care Team Providers Care Piper Installer Name Role Phone Juan Laguerre MD Primary Care Provider [phone] Bro AWAN MD, u[address]bre[address] Unavailable [phone] Jaki Nieves PhD Unavailable [phone] Source Comments In the event that this is information that is protected by federal Confidentiality of Substance User Disorder Patient Records, 42 CFR Part 2 prohibits the unauthorized disclosure of these records.[facility] Encounter Details Date Type Department Care Team (Late st Contact Info) Description 04/27/2019 Orders Only [place] Transplant Surgery [address] [facility], 19th Floor [address] [place], [place] [address] Cathleen Gallegos MD [address] [facility] [address] [address] Social History Tobacco Use Types Packs/Day Years [...] Office Visit [place] Transplant Surgery [address] [facility], 19th Floor [address] [place] [address] Apt confirmed-EH documented as of this encounter Visit Diagnoses Diagnosis Kidney transplant 01/02/2008 Liver transplant 01/02/2008 Liver replaced by transplant documented in this encounter Additional Health Concerns Infection Onset Date Last Indicated Resolved Time COVID-19 Comment:Tested + on 09/0109/01/2020 09/05/2020 09/25/2020 12: 31 AM MILITARY SOURCE OPERATIONS OFFICER documented as of this encounter Care Teams Piper Installer Relationship Specialty Start Date End Date Juan Laguerre MD [address] [facility] [address] [place] [address] PCP - General Family Medicine 01/02/18 [place] Crabtree III, MD [address] [facility] [address] [place] [address] Hematology and Medical Oncology 10/01/18 Jaki Nieves, PhD [address] [facility] [address] [place] [address] Genetic Counseling 11/27/18 documented as of this encounter
--- OUTSIDE RECORDS SUMMARY | 2025-08-09 09:30 | XMS_ITS | Encounter Summary ---
Author Organization [facility] Address [address] [place] [address] Care Team Providers Care Ranch Helper Name Role Phone Juan Laguerre MD Primary Care Provider [phone] Bro AWAN MD, [place] [address] Unavailable [phone] Jaki Nieves PhD Unavailable [phone] Source Comments In the event that this is information that is protected by federal Confidentiality of Substance User Disorder Patient Records, 42 CFR Part 2 prohibits the unauthorized disclosure of these records.[facility] Encounter Details Date Type Department Care Team (Late Contact Info) Description 11/30/2018 Procedure Pass [place] Radiology [address]th [place] [address] Social History Tobacco Use Types Packs/Day Years Used Date Smoking Tobacco: Former Cigarettes 30 1 982 - 2011 Smokeless Tobacco: Never Alcohol Use [...] Upcoming Encounters Date Type Department Care Team ([facility] Contact Info) Description 07/15/2026 1:00 PM CDT Office Visit [place] Transplant Surgery [address] [facility], 19th Floor [address] [place] [address] Apt confirmed-EH documented as of this encounter Visit Diagnoses Not on filedocumented in this encounter Additional Health Concerns Infection Onset Date Last Indicated Resolved Time COVID-19 Comment:Tested + on 09/0109/01/2020 09/05/2020 09/25/2020 12: 31 AM MILL AND COAL TRANSPORT OPERATOR documented as of this encounter Care Teams Ranch Helper Relationship Specialty Start Date End Date Juan Laguerre MD [address] [phone] PCP - General Family Medicine 01/02/18 [place] Crabtree III, MD [address] [address] Hematology and Medical Oncology 10/01/18 Jaki Nieves, PhD [address] [facility] [address] [place] [address] Genetic Counseling 11/27/18 documented as of this encounter
--- OUTSIDE RECORDS SUMMARY | 2025-08-09 09:30 | XMS_ITS | Encounter Summary ---
Author Organization [facility] Address [address] [place] [address] Care Team Providers Care Front Facer Name Role Phone Juan Laguerre MD Primary Care Provider [phone] Bro AWAN MD, Aubrey Lane Unavailable [phone] Jaki Nieves PhD Unavailable [phone] Source Comments In the event that this is information that is protected by federal Confidentiality of Substance User Disorder Patient Records, 42 CFR Part 2 prohibits the unauthorized disclosure of these records.[facility] Encounter Details Date Type Department Care Team (Late Contact Info) Description 05/20/2023 Orders Only [place] Transplant Surgery [address] [facility] [place] [address] Mee Michele RN Social History Tobacco Use [...] Upcoming Encounters Date Type Department Care Team ([facility] Contact Info) Description 07/15/2026 1:00 PM CDT Office Visit [place] Transplant Surgery [address] [facility], [address] [place], [place] [address] Apt confirmed-EH documented as of this encounter Visit Diagnoses Diagnosis Kidney transplant recipient 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
--- OUTSIDE RECORDS SUMMARY | 2025-08-09 09:30 | XMS_ITS | Encounter Summary ---
Author Organization [facility] Address [address] [place] [address] Care Team Providers Care Systems Mgr Name Role Phone Juan Laguerre MD Primary Care Provider [phone] Bro AWAN MD, Aubrey Lane Unavailable [phone] Jaki Nieves PhD Unavailable [phone] Source Comments In the event that this is information that is protected by federal Confidentiality of Substance User Disorder Patient Records, 42 CFR Part 2 prohibits the unauthorized disclosure of these records.[facility] Encounter Details Date Type Department Care Team (Late Contact Info) Description 07/15/2023 Orders Only NM Transplant Surgery [address] [facility], 19th Floor [address] [place] [address] Mee Michele RN Social History Tobacco Use [...] Upcoming Encounters Date Type Department Care Team ([facility] Contact Info) Description 07/15/2026 1:00 PM CDT Office Visit NM Transplant Surgery [address] [facility], [address] [place], [place] [address] Apt confirmed-EH documented as of this encounter Visit Diagnoses Diagnosis Kidney transplant recipient 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
--- OUTSIDE RECORDS SUMMARY | 2025-08-09 09:30 | XMS_ITS | Encounter Summary ---
Author Organization [facility] Address [address] [place] [address] Care Team Providers Care Chain Builder Loom Control Name Role Phone Juan Laguerre MD Primary Care Provider [phone] Bro AWAN MD, Aubrey Lane Unavailable [phone] Jaki Nieves PhD Unavailable [phone] Source Comments In the event that this is information that is protected by federal Confidentiality of Substance User Disorder Patient Records, 42 CFR Part 2 prohibits the unauthorized disclosure of these records.[facility] Encounter Details Date Type Department Care Team (Late st Contact Info) Description 12/17/2018 Orders Only NM Cardiology [address] [place] [id number] [place] [address] [place] [phone] Social History Tobacco Use Types Packs/Day Years Used Date Smoking Tobacco: Former Cigarettes 2 2011 Smokeless Tobacco: Never Alcohol Use Standard [...] Office Visit NM Transplant Surgery [address] [facility], [address]th [address] [place] [address] Apt confirmed-EH documented as of this encounter Results * (ABNORMAL) Protime-INR #[id number] -Non-Office (Future) (12/17/2018 9:52 AM LICENSED MASTER SOCIAL WORKER) PT 117.5(C) 9.2 - 13.0 Second(s) [facility] Comment:Results called by DAJA Severino , and read back by Dr. Lockhart, on 12/17/2018 at 12:03 PM..Corrected from 117.5 Second(s) [Critical] on 12/17/18 12:05:47 LICENSED MASTER SOCIAL WORKER by Anaya Rodriguez. INR 9.9(C) 0.8 - 1.2 [facility] Comment:Results called by DJAA Severino , and read back by Dr. Lockhart, on 12/17/2018 at 12:03 PM.INR should be used to monitor warfarin therapy..INR should be used to monitor warfarin therapy.Corrected from 9.9 [Critical] on 12/17/18 12:06:00 LICENSED MASTER SOCIAL WORKER by Anaya Rodriguez. Blood specimen (specimen) 12/17/2018 9:52 AM LICENSED MASTER SOCIAL WORKER 12/17/2018 10:33 AM LICENSED MASTER SOCIAL WORKER Narrative [facility] - 12/17/2018 12:06 PM LICENSED MASTER SOCIAL WORKER ORDERING DEPARTMENT:[facility] [address] [facility] [address] (GALTER) Ordering Provider:Federico CARLOS Call Back R Jorge Carlos MD HEMATOLOGY ORDERABLES Huseyin cris Result - Final [facility] Alysa Hackett [address] [place] [address] documented in this encounter Visit Diagnoses Diagnosis [facility] (current) use of anticoagulants- Primary Long-term (current) use of anticoagulants long term care administrator (current) use of anticoagulants Long-term (current) use of anticoagulants documented in this encounter Additional Health Concerns Infection Onset Date Last Indicated Resolved Time COVID-19 Comment:Tested + on 09/0109/01/2020 09/05/2020 09/25/2020 12: 31 AM LICENSED MASTER SOCIAL WORKER documented as of this encounter Care Teams Chain Builder Loom Control Relationship Specialty Start Date End Date Juan Laguerre MD [address] [address] PCP - General Family Medicine 01/02/18 Aubrey Crabtree III, MD [address] [address] Hematology and Medical Oncology 10/01/18 Jaki Nieves, PhD [address] [facility] [address] [place] [address] Genetic Counseling 11/27/18 documented as of this encounter
--- OUTSIDE RECORDS SUMMARY | 2025-08-09 09:30 | XMS_ITS | Encounter Summary ---
Author Organization [facility] Address [address] [place] [address] Care Team Providers Care Beauty Therapist Name Role Phone Juan Laguerre MD Primary Care Provider [phone] Bro AWAN MD, Aubrey Lane Unavailable [phone] Jaki Nieves PhD Unavailable [phone] Source Comments In the event that this is information that is protected by federal Confidentiality of Substance User Disorder Patient Records, 42 CFR Part 2 prohibits the unauthorized disclosure of these records.[facility] Encounter Details Date Type Department Care Team (Late Contact Info) Description 05/06/2023 Orders Only NM Transplant Surgery [address] [facility], [address]th Floor [address] [place] [address] Kristel Chisholm RN Social History Tobacco Use Types Packs/Day [...] Office Visit [place] Transplant Surgery [address] [facility], [address] [place] [address] Apt confirmed-EH documented as of this encounter Visit Diagnoses Diagnosis 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
--- OUTSIDE RECORDS SUMMARY | 2025-08-09 09:30 | XMS_ITS | Encounter Summary ---
Author Organization [facility] Address [address] [place] [address] Care Team Providers Care Geospatial Developer Name Role Phone Juan Laguerre MD Primary Care Provider [phone] Bro AWAN MD, Aubrey Lane Unavailable [phone] Jaki Nieves PhD Unavailable [phone] Source Comments In the event that this is information that is protected by federal Confidentiality of Substance User Disorder Patient Records, 42 CFR Part 2 prohibits the unauthorized disclosure of these records.[facility] Reason for Visit * Reason Onset Date Comments Medications Refill 04/06/2019 Encounter Details Date Type Department Care Team (Late st Contact Info) Description 04/06/2019 Refill [place] Transplant Surgery [address] [facility], 19th Floor [address] [place] [address] Edwin Del Toro MD [address] [facility] [address], [place] [address] Medications Refill Social History Tobacco Use Types Packs/Day Years Used Date Smoking Tobacco: Former Cigarettes 2 30 1 982 - 2011 Smokeless Tobacco: [...] Office Visit [place] Transplant Surgery [address] [facility], [address]th Floor [address] [place] [address] Apt confirmed-EH documented as of this encounter Visit Diagnoses Not on filedocumented in this encounter Additional Health Concerns Infection Onset Date Last Indicated Resolved Time COVID-19 Comment:Tested + on 09/0109/01/2020 09/05/2020 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 [address] [place] [address] PCP - General Family Medicine 01/02/18 Aubrey Crabtree III, MD [address] [facility] [address] [place] [address] Hematology and Medical Oncology 10/01/18 Jaki Nieves, PhD [address] [facility] [address] [place] [address] Genetic Counseling 11/27/18 documented as of this encounter
--- OUTSIDE RECORDS SUMMARY | 2025-08-09 09:30 | XMS_ITS | Encounter Summary ---
Author Organization [facility] Address [address] [place] [address] Care Team Providers Care Cognos Developer Name Role Phone Juan Laguerre MD Primary Care Provider [phone] Bro AWAN MD, Aubrey Lane Unavailable [phone] Jaki Nieves PhD Unavailable [phone] Source Comments In the event that this is information that is protected by federal Confidentiality of Substance User Disorder Patient Records, 42 CFR Part 2 prohibits the unauthorized disclosure of these records.[facility] Encounter Details Date Type Department Care Team (Late Contact Info) Description 06/03/2023 Orders Only NM Transplant Surgery [address] [facility], 19th Floor [address] [place] [address] Mee Michele RN Social History Tobacco Use [...] Upcoming Encounters Date Type Department Care Team ([facility] Contact Info) Description 07/15/2026 1:00 PM CDT Office Visit NM Transplant Surgery [address] [facility], 19th Floor [address] [place], [place] [address] Apt confirmed-EH documented as of this encounter Visit Diagnoses Diagnosis Kidney transplant recipient 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
--- OUTSIDE RECORDS SUMMARY | 2025-08-09 09:30 | XMS_ITS | Encounter Summary ---
Author Organization [facility] Address [address] [place] [address] Care Team Providers Care Insurance Agent Name Role Phone Juan Laguerre MD Primary Care Provider [phone] Bro AWAN MD, Aubrey Lane Unavailable [phone] Jaki Nieves PhD Unavailable [phone] Source Comments In the event that this is information that is protected by federal Confidentiality of Substance User Disorder Patient Records, 42 CFR Part 2 prohibits the unauthorized disclosure of these records.[facility] Encounter Details Date Type Department Care Team (Late Contact Info) Description 06/24/2023 Orders Only [place] Transplant Surgery [address] [facility], 19th Floor [address] [place] [address] Mee Michele RN Social History Tobacco Use [...] Upcoming Encounters Date Type Department Care Team ([facility] Contact Info) Description 07/15/2026 1:00 PM CDT Office Visit [place] Transplant Surgery [address] 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 [address] [place] [address] Genetic Counseling 11/27/18 documented as of this encounter
--- OUTSIDE RECORDS SUMMARY | 2025-08-09 09:30 | XMS_ITS | Encounter Summary ---
Author Organization [facility] Address [address] [place] [address] Care Team Providers Care Pet Stylist Name Role Phone Juan Laguerre MD Primary Care Provider [phone] Bro AWAN MD, Aubrey Lane Unavailable [phone] Jaki Nieves PhD Unavailable [phone] Source Comments In the event that this is information that is protected by federal Confidentiality of Substance User Disorder Patient Records, 42 CFR Part 2 prohibits the unauthorized disclosure of these records.[facility] Encounter Details Date Type Department Care Team (Late st Contact Info) Description 03/30/2019 Orders Only NM Transplant Surgery [address] [facility], 19th Floor [address] [place], [place] [address] Cathleen Gallegos MD [address] [facility] [address] [address] Social History Tobacco Use Types Packs/Day Years [...] Office Visit NM Transplant Surgery [address] [facility], [address]th [address] [place] [address] Apt confirmed-EH documented as of this encounter Procedures Procedure Name Priority Date/Time Associated Diagnosis Comments CBC AND DIFFERENTIAL Routine 03/31/2019 12:59 PM CDT Kidney transplant 01/02/2008 Liver transplant 01/02/2008 MAGNESIUM LEVEL Routine 03/31/2019 12:59 PM CDT HEPATIC FUNCTION PANEL Routine 03/31/2019 12:59 PM CDT Kidney transplant 01/02/2008 Liver transplant 01/02/2008 BASIC METABOLIC PANEL Routine 03/31/2019 12:59 PM CDT Kidney transplant 01/02/2008 Liver transplant 01/02/2008 documented in this encounter Results * (ABNORMAL) Magnesium Level (03/31/2019 12:59 PM CDT) Magnesium - External 1.7(L) mg/dL EXTERNAL LAB 03/31/2019 12:5 9 PM CDT Narrative EXTERNAL LAB - 04/01/2019 1:29 PM CDT Verified by Monie Siddiqui on 04/01/2019. us Cathleen Gallegos MD CHEMISTRY ORDERABLES Final Resul t EXTERNAL LAB * Hepatic function panel (03/31/2019 12:59 PM CDT) Total Bilirubin - External 0.5 0.3 - 1.0 mg/dL EXTERNAL LAB Direct Bilirubin - External 0.12 0.03 - 0.18 mg/dL EXTERNAL LAB Alkaline Phos - External 59 34 - 104 U/L EXTERNAL LAB AST (SGOT) - External 17 13 - 39 U/L EXTERNAL LAB ALT (SGPT) - External 13 7 - 52 U/L EXTERNAL LAB Total Protein - External 7.1 6.4 - 8.9 g/dL EXTERNAL LAB Albumin - External 3.9 3.5 - 5.7 g/dL EXTERNAL LAB Blood specimen (specimen) 03/31/2019 12:59 PM CDT Narrative EXTERNAL LAB - 04/01/2019 1:29 PM CDT Verified by Monie Siddiqui on 04/01/2019. Cathleen Gallegos MD CHEMISTRY ORDERABLES Final Resul t Performing Organization Address City/[facility]/ZIP Co de Phone Number EXTERNAL LAB * (ABNORMAL) Basic Metabolic Panel (03/31/2019 12:59 PM CDT) Glucose - External 166(H) 70 - 105 mg/dL EXTERNAL LAB Urea Nitrogen - External 29(H) 7 - 25 mg/dL EXTERNAL LAB Creatinine - External 1.4(H) 0.7 - 1.3 mg/dL EXTERNAL LAB Sodium - External 135(L) 136 - 145 mEq/L EXTERNAL LAB Potassium - External 4.8 3.5 - 5.1 mEq/L EXTERNAL LAB Chloride - External 102 98 - 107 mEq/L EXTERNAL LAB Calcium - External 9.1 6 - 10.3 mg/d EXTERNAL LAB Anion Gap - External 12.8 7.0 - 15 mEq/L EXTERNAL LAB GFR(Others) - External 52(H) 7.0 - 15 ml/min EXTERNAL LAB GFR() - External >60 >60 ml/min EXTERNAL LAB Blood specimen (specimen) 03/31/2019 12:59 PM CDT Narrative EXTERNAL LAB - 04/01/2019 1:29 PM CDT Verified by Monie Siddiqui on 04/01/2019. Cathleen Gallegos MD CHEMISTRY ORDERABLES Final Resul t EXTERNAL LAB * (ABNORMAL) CBC with Differential (03/31/2019 12:59 PM CDT) White Blood Cells - External 7.6 4.0 - 10.0 uL EXTERNAL LAB Hemoglobin - External 11.8(L) g/dL EXTERNAL LAB Hematocrit - External 36.9(L) 40.1 - 51.0 % EXTERNAL LAB Platelets - External 144(L) 163 - 369 uL EXTERNAL LAB Red Blood Cells - External 4.41(L) 4.63 - 6.08 uL EXTERNAL LAB MCV - External 84 79 - 95 fL EXTERNAL LAB MCH - External 26.8 25.6 - 32.2 pg EXTERNAL LAB MCHC - External 32(L) 32.2 - 36.5 g/dL EXTERNAL LAB Neutrophils Abs (k/uL) - External 4.104(L) EXTERNAL LAB Lymph Absolute - External 2,812 cells/uL EXTERNAL LAB Pitkin Absolute - External 152(L) cells/uL EXTERNAL LAB - External 532(H) 0 - 300 cells/uL EXTERNAL LAB Lymphocytes - External 37 19 - 40 % EXTERNAL LAB Monocytes - External 2(L) 4 - 12 % EXTERNAL LAB Eosinophils - External 7(H) 0 - 3 % EXTERNAL LAB Blood specimen (specimen) 03/31/2019 12:59 PM CDT Narrative EXTERNAL LAB - 04/01/2019 1:29 PM CDT Verified by Monie Siddiqui on 04/01/2019. 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
--- OUTSIDE RECORDS SUMMARY | 2025-08-09 09:30 | XMS_ITS | Encounter Summary ---
Author Organization [facility] Address [address] [place] [address] Care Team Providers Care Kettleman Name Role Phone Juan Laguerre MD Primary Care Provider [phone] Bro AWAN MD, Aubrey Lane Unavailable [phone] Jaki Nieves PhD Unavailable [phone] Source Comments In the event that this is information that is protected by federal Confidentiality of Substance User Disorder Patient Records, 42 CFR Part 2 prohibits the unauthorized disclosure of these records.[facility] Encounter Details Date Type Department Care Team (Late Contact Info) Description 04/01/2023 Orders Only NM Transplant Surgery [address] [facility], 19th Floor [address] [place] [address] Mee Michele RN Social History Tobacco Use [...] Upcoming Encounters Date Type Department Care Team ([facility] Contact Info) Description 07/15/2026 1:00 PM CDT Office Visit [place] Transplant Surgery [address] [facility], [address]th Floor [address] [place], [place] [address] Apt confirmed-EH documented as of this encounter Visit Diagnoses Diagnosis Kidney transplant recipient 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
--- OUTSIDE RECORDS SUMMARY | 2025-08-09 09:30 | XMS_ITS | Encounter Summary ---
Author Organization [facility] Address [address] [place] [address] Care Team Providers Care Etl Analyst Name Role Phone Juan Laguerre MD Primary Care Provider [phone] Bro AWAN MD, Aubrey Lane Unavailable [phone] Jaki Nieves PhD Unavailable [phone] Source Comments In the event that this is information that is protected by federal Confidentiality of Substance User Disorder Patient Records, 42 CFR Part 2 prohibits the unauthorized disclosure of these records.[facility] Encounter Details Date Type Department Care Team (Late st Contact Info) Description 05/04/2019 Orders Only NM Transplant Surgery [address] [facility], [address]th [address] [place], [place] [address] Cathleen Gallegos MD [address] [facility] [address] [address] Social History Tobacco Use Types Packs/Day Years [...] Office Visit [place] Transplant Surgery [address] [facility], [address] [place] [address] Apt confirmed-EH documented as of this encounter Visit Diagnoses Diagnosis Kidney transplant 01/02/2008 Liver transplant 01/02/2008 Liver replaced by transplant documented in this encounter Additional Health Concerns Infection Onset Date Last Indicated Resolved Time COVID-19 Comment:Tested + on 09/0109/01/2020 09/05/2020 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
--- OUTSIDE RECORDS SUMMARY | 2025-08-09 09:30 | XMS_ITS | Encounter Summary ---
Author Organization [facility] Address [address] [place] [address] Care Team Providers Care Imcu Nurse Name Role Phone Juan Laguerre MD Primary Care Provider [phone] Bro AWAN MD, Aubrey Lane Unavailable [phone] Jaki Nieves PhD Unavailable [phone] Source Comments In the event that this is information that is protected by federal Confidentiality of Substance User Disorder Patient Records, 42 CFR Part 2 prohibits the unauthorized disclosure of these records.[facility] Encounter Details Date Type Department Care Team (Late Contact Info) Description 03/07/2018 Orders Only [place] Transplant Surgery [address] [facility] [place] [address] Cara Cook RN Social History Tobacco Use Types Packs/Day [...] Office Visit [place] Trans[facility] [address], [address] [place] [address] Apt confirmed-EH documented as of this encounter Procedures Procedure Name Priority Date/Time Associated Diagnosis Comments PTH, INTACT Routine 04/04/2018 6:07 AM CDT MYCOPHENOLIC ACID Routine 04/04/2018 6:0 7 AM CDT BK VIRUS DNA QUANT PCR, BLOOD Routine 04/04/2018 6:07 AM CDT CBC AND DIFFERENTIAL Routine 04/04/2018 6:04 AM CDT PHOSPHORUS LEVEL Routine 04/04/2018 6:04 AM CDT MAGNESIUM LEVEL Routine 04/04/2018 6:04 AM CDT LIPASE Routine 04/04/2018 6:04 AM CDT AMYLASE Routine 04/04/2018 6:04 AM CDT HEPATIC FUNCTION PANEL Routine 04/04/2018 6:04 AM CDT BASIC METABOLIC PANEL Routine 04/04/2018 6:04 AM CDT EVEROLIMUS LEVEL Routine 03/07/2018 5:38 AM CDT MYCOPHENOLIC ACID Routine 03/07/2018 5:3 8 AM CDT PROTEIN/CREAT RATIO, RANDOM URINE Routine 03/07/2018 5:38 AM CDT CREATININE, RANDOM URINE Routine 03/07/2018 5:38 AM CDT URINALYSIS WITH MICROSCOPIC Routine 03/07/2018 5:38 AM CDT CBC AND DIFFERENTIAL Routine 03/07/2018 5:38 AM CDT PHOSPHORUS LEVEL Routine 03/07/2018 5:38 AM CDT MAGNESIUM LEVEL Routine 03/07/2018 5:38 AM CDT LIPASE Routine 03/07/2018 5:38 AM CDT AMYLASE Routine 03/07/2018 5:38 AM CDT HEPATIC FUNCTION PANEL Routine 03/07/2018 5:38 AM CDT BASIC METABOLIC PANEL Routine 03/07/2018 5:38 AM CDT documented in this encounter Results * BK Virus DNA Quant PCR, Blood (04/04/2018 6:07 AM CDT) BK Virus DNA, Qn PCR - External NOT DET EXTERNAL LAB 04/04/2018 6:07 AM CDT Narrative EXTERNAL LAB - 05/06/2018 10:50 AM CDT Verified by Monie Siddiqui on 05/06/2018. us Edwin Del Toro MD IMMUNOLOGY ORDERABLES Joana l Result EXTERNAL LAB * (ABNORMAL) PTH,Intact (04/04/2018 6:07 AM CDT) PTH, Intact - External 117(H) 14 - 72 pg/mL EXTERNAL LAB 04/04/2018 6:07 AM CDT Narrative EXTERNAL LAB - 04/08/2018 11:31 AM CDT Verified by Monie Siddiqui on 04/08/2018. us Seng Mendez MD CHEMISTRY ORDERABLES Final Res ult EXTERNAL LAB * Mycophenolic Acid (04/04/2018 6:07 AM CDT) Mycophenolic Acid - External 2.3 1.0 - 3.5 ug/mL EXTERNAL LAB 04/04/2018 6:07 AM CDT Narrative EXTERNAL LAB - 04/07/2018 11:47 AM CDT Verified by Galina Raza on 04/07/2018. us Edwin Del Toro MD CHEMISTRY ORDERABLES Final Result EXTERNAL LAB * (ABNORMAL) Hepatic function panel (04/04/2018 6:04 AM CDT) Total Bilirubin - External 0.3 0.0 - 1.0 mg/dL EXTERNAL LAB Direct Bilirubin - External <0.1 0.0 - 0.3 mg/dL EXTERNAL LAB Alkaline Phos - External 92 39 - 117 U/L EXTERNAL LAB AST (SGOT) - External 19 U/L EXTERNAL LAB ALT (SGPT) - External 24 12 - 55 U/L EXTERNAL LAB Total Protein - External 6.4 6.2 - 8.4 g/dL EXTERNAL LAB Albumin - External 3.0(L) 3.5 - 5.0 g/dL EXTERNAL LAB 04/04/2018 6:04 AM CDT Narrative EXTERNAL LAB - 04/08/2018 11:31 AM CDT Verified by Monie Siddiqui on 04/08/2018. us Seng Mendez MD CHEMISTRY ORDERABLES Final Res ult EXTERNAL LAB * (ABNORMAL) CBC with Differential (04/04/2018 6:04 AM CDT) Red Blood Cells - External 4.89 4.20 - 5.80 10(6)/mcL EXTERNAL LAB Hemoglobin - External 12.6 12.6 - 17 g/dL EXTERNAL LAB Hematocrit - External 39.2(L) 39.8 - 52.2 % EXTERNAL LAB MCV - External 80.2 80.0 - 100.0 EXTERNAL LAB MCH - External 25.8(L) 26.5 - 33.9 pg EXTERNAL LAB MCHC - External 32.1 31.5 - 36.0 g/dL EXTERNAL LAB Platelets - External 153 140 - 445 10(3)/mcL EXTERNAL LAB RDW - External 15.9(H) 12.0 - 15.0 % EXTERNAL LAB Neutrophils - External 61.3 % EXTERNAL LAB Lymphocytes - External 25.6 % EXTERNAL LAB Monocytes - External 10.2 % EXTERNAL LAB Eosinophils - External 2.1 % EXTERNAL LAB Basophils - External 0.4 % EXTERNAL LAB Neutrophils Abs (k/uL) - External 3.26 1.40 - 7.30 10(3)/mcL EXTERNAL LAB Lymph Absolute - External 1.36 1.30 - 2.90 10(3)/mcL EXTERNAL LAB [place] Absolute - External 0.54 0.10 - 0.80 10(3)/mcL EXTERNAL LAB - External 0.11 0.00 - 0.30 10(3)/mcL EXTERNAL LAB Basophil Absolute - External 0.02 0.00 - 0.10 10(3)/mcL EXTERNAL LAB White Blood Cells - External 5.31 EXTERNAL LAB 04/04/2018 6:04 AM CDT Narrative EXTERNAL LAB - 04/08/2018 4:03 PM CDT Verified by Monie Siddiqui on 04/08/2018. Edwin Del Toro MD HEMATOLOGY ORDERABLES Edit ed Result - Final EXTERNAL LAB * (ABNORMAL) Basic Metabolic Panel (04/04/2018 6:04 AM CDT) Sodium - External 137 133 - 145 mmol/L EXTERNAL LAB Potassium - External 4.5 3.5 - 5.1 mmol/L EXTERNAL LAB Chloride - External 105 96 - 108 mmol/L EXTERNAL LAB CO2 - External 26 21 - 32 mmol/L EXTERNAL LAB Anion Gap - External 10.5 10.0 - 20.0 mmol/L EXTERNAL LAB Glucose - External 167(H) 70 - 105 mg/dL EXTERNAL LAB Urea Nitrogen - External 20(H) 6 - 19 mg/dL EXTERNAL LAB Creatinine - External 1.30 0.50 - 1.30 mg/dL EXTERNAL LAB Calcium - External 7.5(L) 8.4 - 10.2 mg/dL EXTERNAL LAB 04/04/2018 6:04 AM CDT Narrative EXTERNAL LAB - 04/08/2018 11:31 AM CDT Verified by Monie Siddiqui on 04/08/2018. Seng Mendez MD CHEMISTRY ORDERABLES Final Res ult Performing Organization Address [facility] Co de Phone Number EXTERNAL LAB * (ABNORMAL) Phosphorus Level (04/04/2018 6:04 AM CDT) Phosphorous - External 2.2(L) 2.6 - 4.5 mg/dL EXTERNAL LAB 04/04/2018 6:04 AM CDT Narrative EXTERNAL LAB - 04/08/2018 11:26 AM CDT Verified by Monie Siddiqui on 04/08/2018. Seng Mendez MD CHEMISTRY ORDERABLES Final Res ult Performing Organization Address [facility] de Phone Number EXTERNAL LAB * Magnesium Level (04/04/2018 6:04 AM CDT) Magnesium - External 1.9 mg/dL EXTERNAL LAB 04/04/2018 6:04 AM CDT Narrative EXTERNAL LAB - 04/08/2018 11:26 AM CDT Verified by Monie Siddiqui on 04/08/2018. Seng Mendez MD CHEMISTRY ORDERABLES Final Res ult Performing Organization Address [facility] de Phone Number EXTERNAL LAB * (ABNORMAL) Lipase (04/04/2018 6:04 AM CDT) Lipase - External 1,103(H) 73 - 393 U/L EXTERNAL LAB 04/04/2018 6:04 AM CDT Narrative EXTERNAL LAB - 04/08/2018 11:26 AM CDT Verified by Monie Siddiqui on 04/08/2018. Seng Mendez MD CHEMISTRY ORDERABLES Final Res ult Performing Organization Address [facility] de Phone Number EXTERNAL LAB * (ABNORMAL) Amylase, Serum (04/04/2018 6:04 AM CDT) Amylase - External 123(H) 25 - 115 U/L EXTERNAL LAB 04/04/2018 6:04 AM CDT Narrative EXTERNAL LAB - 04/08/2018 11:26 AM CDT Verified by Monie Siddiqui on 04/08/2018. us Seng Mendez MD CHEMISTRY ORDERABLES Final Res ult EXTERNAL LAB * Mycophenolic Acid (03/07/2018 5:38 AM CDT) Mycophenolic Acid - External 2.7 1.0 - 3.5 ug/mL EXTERNAL LAB 03/07/2018 5:38 AM CDT Narrative EXTERNAL LAB - 03/10/2018 11:54 PM CDT Verified by Arthur Simon on 03/10/2018. us Physician Non-Staff CHEMISTRY ORDERABLES Final R esult EXTERNAL LAB * Everolimus Level (03/07/2018 5:38 AM CDT) [place]ol[place] Level - External 6.5 EXTERNAL LAB 03/07/2018 5:38 AM CDT Narrative EXTERNAL LAB - 03/10/2018 11:12 PM CDT Verified by Arthur Simon on 03/10/2018. us Edwin Del Toro MD CHEMISTRY ORDERABLES Final Result Performing Organization Address City/[facility]/ZIP Co de Phone Number EXTERNAL LAB * (ABNORMAL) Hepatic function panel (03/07/2018 5:38 AM CDT) Total Bilirubin - External 0.3 mg/dL EXTERNAL LAB Direct Bilirubin - External <0.1 0.0 - 0.3 mg/dL EXTERNAL LAB Alkaline Phos - External 93 39 - 117 U/L EXTERNAL LAB AST (SGOT) - External 18 0 - 37 U/L EXTERNAL LAB ALT (SGPT) - External 28 12 - 55 U/L EXTERNAL LAB Total Protein - External 7.2 6.2 - 8.4 g/dL EXTERNAL LAB Albumin - External 3.4(L) 3.5 - 5.0 g/dL EXTERNAL LAB 03/07/2018 5:38 AM CDT Narrative EXTERNAL LAB - 03/08/2018 7:36 AM CDT Verified by Monie Siddiqui on 03/08/2018. Edwin Del Toro MD CHEMISTRY ORDERABLES Final Result Performing Organization Address [facility] de Phone Number EXTERNAL LAB * (ABNORMAL) Basic Metabolic Panel (03/07/2018 5:38 AM CDT) Sodium - External 140 133 - 145 mmol/L EXTERNAL LAB Potassium - External 4.7 3.5 - 5.1 mmol/L EXTERNAL LAB Chloride - External 108 96 - 108 mmol/L EXTERNAL LAB CO2 - External 25 21 - 32 mmol/L EXTERNAL LAB Anion Gap - External 11.7 10.0 - 20.0 mmol/L EXTERNAL LAB Glucose - External 187(H) 70 - 105 mg/dL EXTERNAL LAB Urea Nitrogen - External 19 6 - 19 mg/dL EXTERNAL LAB Creatinine - External 1.30 0.50 - 1.30 mg/dL EXTERNAL LAB Calcium - External 8.5 8.4 - 10.2 mg/dL EXTERNAL LAB 03/07/2018 5:38 AM CDT Narrative EXTERNAL LAB - 03/08/2018 7:36 AM CDT Verified by Monie Siddiqui on 03/08/2018. Edwin Del Toro MD CHEMISTRY ORDERABLES Final Result Performing Organization Address [facility] de Phone Number EXTERNAL LAB * Protein /Creatinine Ratio, Urine (03/07/2018 5:38 AM CDT) Prot/Creat Ratio - External 0.44 EXTERNAL LAB 03/07/2018 5:38 AM CDT Narrative EXTERNAL LAB - 03/08/2018 7:33 AM CDT Verified by Monie Siddiqui on 03/08/2018. Edwin Del Toro MD URINE ORDERABLES Final Res ult Performing Organization Address [facility] de Phone Number EXTERNAL LAB * Creatinine, random urine (03/07/2018 5:38 AM CDT) Creatinine, Urine - External 51 mg/dL EXTERNAL LAB 03/07/2018 5:38 AM CDT Narrative EXTERNAL LAB - 03/08/2018 7:33 AM CDT Verified by Monie Siddiqui on 03/08/2018. us Edwin Del Toro MD URINE ORDERABLES Final Res ult Performing Organization Address [facility] de Phone Number EXTERNAL LAB * Phosphorus Level (03/07/2018 5:38 AM CDT) Phosphorous - External 3.2 2.6 - 4.5 mg/dL EXTERNAL LAB 03/07/2018 5:38 AM CDT Narrative EXTERNAL LAB - 03/08/2018 7:33 AM CDT Verified by Monie Siddiqui on 03/08/2018. us Edwin Del Toro MD CHEMISTRY ORDERABLES Final Result Performing Organization Address [facility] de Phone Number EXTERNAL LAB * Magnesium Level (03/07/2018 5:38 AM CDT) Magnesium - External 2.1 1.6 - 2.6 mg/dL EXTERNAL LAB 03/07/2018 5:38 AM CDT Narrative EXTERNAL LAB - 03/08/2018 7:33 AM CDT Verified by Monie Siddiqui on 03/08/2018. us Edwin Del Toro MD CHEMISTRY ORDERABLES Final Result Performing Organization Address [facility] de Phone Number EXTERNAL LAB * Lipase (03/07/2018 5:38 AM CDT) Lipase - External 288 73 - 393 U/L EXTERNAL LAB 03/07/2018 5:38 AM CDT Narrative EXTERNAL LAB - 03/08/2018 7:33 AM CDT Verified by Monie Siddiqui on 03/08/2018. us Edwin Del Toro MD CHEMISTRY ORDERABLES Final Result Performing Organization Address [facility] de Phone Number EXTERNAL LAB * Amylase, Serum (03/07/2018 5:38 AM CDT) Amylase - External 63 25 - 115 U/L EXTERNAL LAB 03/07/2018 5:38 AM CDT Narrative EXTERNAL LAB - 03/08/2018 7:33 AM CDT Verified by Monie Siddiqui on 03/08/2018. Edwin Del Toro MD CHEMISTRY ORDERABLES Final Result Performing Organization Address [facility] de Phone Number EXTERNAL LAB * (ABNORMAL) Urinalysis with Microscopic (03/07/2018 5:38 AM CDT) Specific [place], Urine - External 1.007 1.003 - 1.035 EXTERNAL LAB UA pH - External 6.0 5.0 - 8.0 EXTERNAL LAB UA Leukocyte Esterase - External Negative Negative EXTERNAL LAB UA Nitrate - External Negative Negative EXTERNAL LAB UA Protein - External Trace(H) Negative mg/dL EXTERNAL LAB UA Glucose - External Negative Negative EXTERNAL LAB UA Ketones - External Negative Negative mg/dL EXTERNAL LAB UA Urobilinogen - External <2.0 <2.0 mg/dL EXTERNAL LAB UA Bilirubin - External Negative Negative EXTERNAL LAB UA Blood - External Negative Negative raul/ul EXTERNAL LAB UA Color - External Yellow Yellow EXTERNAL LAB UA Appearance - External Clear Clear EXTERNAL LAB UA RBC - External 0-5 0-5, /hpf EXTERNAL LAB UA Yeast - External None /HPF EXTERNAL LAB 03/07/2018 5:38 AM CDT Narrative EXTERNAL LAB - 03/07/2018 11:21 AM CDT Verified by Monie Siddiqui on 03/07/2018. Edwin Del Toro MD URINE ORDERABLES Final Res ult Performing Organization Address [facility] de Phone Number EXTERNAL LAB * (ABNORMAL) CBC with Differential (03/07/2018 5:38 AM CDT) White Blood Cells - External 5.18 3.90 - 11.00 10(3)/mcL EXTERNAL LAB Red Blood Cells - External 5.52 4.20 - 5.80 10(6)/mcL EXTERNAL LAB Hemoglobin - External 14 12.6 - 17.4 g/dL EXTERNAL LAB Hematocrit - External 44.1 39.8 - 52.2 % EXTERNAL LAB MCV - External 79.9(L) 80.0 - 100.0 fL EXTERNAL LAB MCH - External 25.4(L) 26.5 - 33.9 pg EXTERNAL LAB MCHC - External 31.7 31.5 - 36.0 g/dL EXTERNAL LAB Platelets - External 142 140 - 445 10(3)/mcL EXTERNAL LAB RDW - External 15.3(H) 12.0 - 15.0 % EXTERNAL LAB Neutrophils - External 67.5 % EXTERNAL LAB Monocytes - External 8.9 % EXTERNAL LAB Eosinophils - External 1.4 % EXTERNAL LAB Basophils - External 0.8 % EXTERNAL LAB Neutrophils Abs (k/uL) - External 3.50 1.40 - 7.30 10(3)/mcL EXTERNAL LAB Lymph Absolute - External 1.08(L) 1.30 - 2.90 10(3)/mcL EXTERNAL LAB [place] Absolute - External 0.46 0.10 - 0.80 10(3)/mcL EXTERNAL LAB - External 0.07 0.00 - 0.30 10(3)/mcL EXTERNAL LAB Basophil Absolute - External 0.04 0.00 - 0.10 10(3)/mcL EXTERNAL LAB 03/07/2018 5:38 AM CDT Narrative EXTERNAL LAB - 03/07/2018 11:21 AM CDT Verified by Monie Siddiqui on 03/07/2018. 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
--- OUTSIDE RECORDS SUMMARY | 2025-08-09 09:30 | XMS_ITS | Clinical Summary ---
Author Organization [facility] [employer] Address [facility] [place] [address] Care Team Providers Care Superannuation Clerk Name Role Phone Unavailable Primary Care Provider Unavailabl e Source Comments [facility] [employer],non-owned Affiliates and Associated Physician Practices is amultiple site organization consisting of ambulatory clinics and hospital sitesin [place], [place], [place] and [place]. This disclosure is being madepursuant to the Care Everywhere program and may not contain all information available regarding this patient. Last updated 18.[facility] [employer] Allergies Active Allergy Reactions Criticality Noted Date Comments Atorvastatin Myalgias Medium 02/04/2025 Codeine Other 05/03/2025 Not able to sleep Medications * Be aware that medications may not be up to date on this document. Alwaysverify current medications with the patient. albuterol HFA (Proventil; Ventolin; Proair) 108 (90 Base) MCG/ACT inhaler TAKE 1 OR 2 PUFFS INHALATION EVERY 4 HOURS NEEDED FOR SHORTNESS OF BREATH/WHEEZING 023 Active apixaban (Eliquis) 5 MG tablet Take 1 (one) tablet by mouth 2 times daily 022 Active Calcium Carb-Cholecalcifer ol (Calcium/Vitamin D) 600-400 MG-UNIT TABS Take 1 tablet by mouth once daily Active Cholecalciferol 50 MCG (1999 UT) Active DULoxetine (Cymbalta) 60 MG capsule Take 1 (one) capsule by mouth Active everolimus (Zortress) 0.5 MG tablet Take 3 (three) tablets by mouth 2 times daily 023 Active magnesium oxide (Mag-Ox) 400 MG tablet Take 1 (one) tablet by mouth once daily Active mycophenolate EC (Myfortic) 180 MG tablet Take 2 (two) tablets by mouth 2 times daily 023 Active pantoprazole EC (Protonix) 40 MG tablet Take 1 (one) tablet by mouth every morning Active pregabalin (Lyrica) 300 MG capsule Take 1 (one) capsule by mouth 2 times daily Active metoprolol succinate XL 24hr (Toprol XL) 50 MG tablet Take 1.5 (one and one-half) tablets by mouth once daily 023 Active Gvoke HypoPen 2-Pack 0.5 MG/0.1ML SOAJ PLEASE SEE ATTACHED FOR DETAILED DIRECTIONS Active timolol maleate (Timoptic) 0.5 % ophthalmic solution INSTILL 1 DROP INTO RIGHT EYE TWICE A DAY Active empagliflozin (Jardiance) 25 MG tablet Take 1 (one) tablet by mouth once daily 90 tablet 4 024 Active sulfamethoxazole-t rimethoprim (Bactrim; Septra) 400-80 MG tablet Take 1 (one) tablet by mouth Active timolol as hemihydrate (Betimol) 0.5 % ophthalmic solution INSTILL 1 DROP INTO RIGHT EYE TWICE DAILY 025 Active tobramycin-dexAMET Hasone (Tobradex) 0.3-0.1 % ophthalmic suspension Active Continuous Glucose Sensor (FreeStyle Elizabeth 3 Plus Sensor) MISCIndications:In adequately controlled diabetes mellitus (HCC) Use 1 Each every 15 days 2 Each Active Continuous Glucose Sensor (Dexcom G7 Sensor) MISCIndications:Ty pe 2 diabetes mellitus with other specified complication, with long-term current use of insulin ([facility]) Use 1 Each every 10 days 3 Each Active Glucagon (Gvoke HypoPen 2-Pack) 1 MG/0.2ML SOAJ Inject 1 mg subcutaneously as directed 0.4 mL 025 Active blood glucose test stripIndications:T ype 2 diabetes mellitus with other specified complication, with long-term current use of insulin ([facility]) Use 1 (one) strip 2 times daily 100 strip 3 025 Active ezetimibe (Zetia) 10 MG tablet Take 1 (one) tablet by mouth once daily Active fenofibrate (Tricor) 145 MG tablet Take 1 (one) tablet by mouth once daily Active traMADol (Ultram) 50 MG tabletIndications: Moderate to Moderately Severe Pain Take 1 (one) tablet by mouth every 6 hours as needed for Pain Reasons: Moderate to Moderately Severe Pain 28 tablet Active amoxicillin-clavul anate (Augmentin) 500-125 MG tablet Take 1 (one) tablet by mouth every 12 hours 20 tablet Active Additional Information Patient not taking.Reason: Provider adjusted (completed), Informant: Spouse, Reported on 07/27/2025 amoxicillin (Amoxil) 500 MG tablet TAKE 4 TABLETS (2000 MG) BY MOUTH 1 HOUR BEFORE PROCEDURE X 1 DOSE Active B Complex Vitamins (Vitamin B-Complex) TABS Take 1 tablet by mouth once daily Active cyclobenzaprine (Flexeril) 10 MG tablet Take 1 (one) tablet by mouth 3 times daily as needed Active doxycycline hyclate (Vibramycin) 100 MG capsule Active hydroxypropyl methylcellulose 0.3% (Genteal Severe) 0.3 % ophthalmic gel Apply to both eyes Active HumaLOG KwikPen 100 UNIT/ML pen Inject 10 (ten) Units subcutaneously 3 times daily before meals 30 mL 4 Active HYDROcodone-acetam inophen ([place]) 7.5-325 MG tabletIndications: Nonhealing nonsurgical wound Take 1 (one) tablet by mouth every 6 hours as needed for Pain 28 tablet 025 2024 Active cefadroxil (Duricef) 500 MG capsule Take 1 (one) capsule by mouth 2 times daily for 14 days 28 capsule 025 2024 Active amoxicillin-clavul anate (Augmentin) 875-125 MG tablet Take 1 (one) tablet by mouth 2 times daily with morning and evening meal 20 tablet Active mary lou Solares, penIndications:Typ e 2 diabetes mellitus with other specified complication, with long-term current use of insulin (HCC) Inject 40 (forty) Units subcutaneously at bedtime 90 mL Active mary lou Solares, penIndications:Typ e 2 diabetes mellitus with other specified complication, with long-term current use of insulin (HCC) Inject 40 (forty) Units subcutaneously at bedtime 30 mL 4 025 2024 Discontin ued(Reord er) doxycycline hyclate (Vibramycin) 100 MG capsule Take 1 (one) capsule by mouth every 12 hours for 10 days 20 capsule 025 2024 Active Problems Problem Noted Date Diagnosed Date Infection of superficial inc isional surgical site after procedure 06/04/2025 Chronic coronary microvascular dysfunction 07/13 Retinopathy 07/13/2024 Other hyperlipidemia 07/13/2024 Diabetic ulcer of toe associ ated with type 2 diabetes mellitus 07/13/2024 Amputation at midfoot 07/13/2024 Albuminuria 07/13/2024 Stage 3a chronic kidney disease 07/13/2024 Diabetes mellitus 01/07/2024 Malignant neoplasm of tail of pancreas History of pancreatic surgery 01/07/2024 Kidney transplant recipient 01/07/2024 Liver transplant recipient 01/07/2024 Cerebrovascular accident (CVA) 01/07/2024 Neuropathy 01/07/2024 History of transcatheter aortic valve replacemen t (TAVR) 01/07/2024 Encounters Date Type Department Care Team Description 08/06/2025 Refill [facility] - Endocrinology [address] [place] [phone] Katja Li MD MEDICATION REFILL 08/04/2025 8:20 AM CDT Ancillary Procedure [facility] - Radiology [address] [place] [address] Cam Carey PA-C Post-operative state 08/04/2025 8:15 AM CDT Office Visit [facility] [address] [place] [address] Cam Carey PA-C Post-operative state (Primary Dx) 08/02/2025 1:30 PM CDT Office Visit [facility] [address] [place] [phone] Leno Herrera DO Post-operative state (Primary Dx) 08/01/2025 Orders Only [facility] [address] [place] [address] Leno Herrera DO 07/30/2025 Results Follow-Up [facility] [address] [place] [address] Leno Herrera DO 07/29/2025 Travel 07/27/2025 12:50 PM CDT - 07/27/2025 2:10 PM CDT Surgery [facility] Op [address] [place] [address] Leno Herrera DO RIGHT ANKLE IRRIGATION AND DEBRIDEMENT OF WOUND, KERECIS SKIN GRAFT APPLICATION, AND PROVENA WOUND VAC 07/27/2025 12:47 PM CDT Anesthesia Event [facility] Op [address] [place] [address] Phillip Welch MD Bunch, Krista M, BILLING COORDINATOR-FIRST LINE SUPERVISOR 07/27/2025 10:39 AM CDT - 07/27/2025 3:40 PM CDT Hospital Encounter [facility] Op [address] [place] [address] Leno Herrera DO Surgery General Discharge Disposition: Home or Self Care 07/27/2025 Travel 07/26/2025 8:14 AM CDT - 07/26/2025 11:59 PM CDT Hospital Encounter [facility] - Lab [address] [facility], [address] [place] [address] Cam Carey PA-C Discharge Disposition: Home or Self Care 07/23/2025 Orders Only [facility] - Endocrinology [address] [facility] [place] [phone] Katja Li MD Type 2 diabetes mellitus with other specified complication, with long-term current use of insulin (HCC) 07/23/2025 Telephone [facility] [address], [address] [phone] Leno Herrera DO Med Question (Spoke w/ w concerns about pre-autho of prior 2 sx and upcoming sx on 07/27 & Doppler. I told her that the doppler and sx for 07/27 had been authorized and I would speak to Karina about the previous 2 sx in question. I also told her that pt could stop Eliquis 3-5 days prior to sx. Pt's understood.) 07/23/2025 [facility] Outpatient Visit [address] [phone] Document, Scanned 07/21/2025 8:50 AM CDT Office Visit [address] [address] Leno Herrera, Post-operative state (Primary Dx) 07/15/[address] [phone] Leno Herrera DO Question 07/14/2025 11:15 AM CDT Office Visit [address] [address] Cam Carey PA-C Post-operative state (Primary Dx) 07/09/2025 Telephone [facility] - Endocrinology [address] [place] [phone] Katja Li MD Rx Formulary/Therapeuti c Substitution (Lantus to Semglee) 07/07/2025 9:30 AM CDT Office Visit [address] [address] Cam Carey PA-C Post-operative state (Primary Dx) 07/07/2025 Refill [facility] - Endocrinology [address] [place] [phone] Katja Li MD MEDICATION REFILL 06/29/2025 9:45 AM CDT Office Visit [address] [phone] Cam Carey PA-C Bilateral leg and foot pain (Primary Dx); Bilateral leg pain 06/29/2025 Travel 06/22/2025 9:00 AM CDT Office Visit [facility] [address], [address] [phone] Cam Carey PA-C Post-operative state (Primary Dx) 06/16/2025 1:45 PM CDT Office Visit [address] [address] Cam Carey PA-C Post-operative state (Primary Dx) 06/10/2025 1:17 PM CDT Anesthesia Event [facility] Op [address] [place] [address] Ankur Talley MD 06/10/2025 11:20 AM CDT - 06/10/2025 12:40 PM CDT Surgery [address] [address] Leno Herrera DO IRRIGATION AND DEBRIDEMENT OF RIGHT ANKLE WITH WOUND VAC PLACEMENT 06/10/2025 8:41 AM CDT - 06/10/2025 4:40 PM CDT Hospital Encounter [address] [address] Leno Herrera DO Surgery General Discharge Disposition: Home or Self Care 06/02/2025 8:50 AM CDT Office Visit [address] [address] Leno Herrera DO Post-operative state (Primary Dx) 05/26/2025 8:40 AM CDT Office Visit [address] [address] Leno Herrera DO Non-healing surgical wound, subsequent encounter (Primary Dx); Post-operative state 05/19/2025 11:45 AM CDT Office Visit [address] [address] Micah Avila PA-C Post-operative state (Primary Dx); Non-healing surgical wound, subsequent encounter 05/12/2025 10:30 AM CDT Office Visit [facility] [address] [place] [address] Micah Avila PA-C Post-operative state (Primary Dx) from Last 3 Months Immunizations Immunization Administration Dates Next Due HIB-PRP-T 4 DOSE 07/21/2018 INFLUENZA VACCINE 09/15/2018, 7,07/25/2016,08/02,09/03/2014,09/10/2013,09/07/2012 ,08/04/2008 INFLUENZA VACCINE, QUADR. (F LUZONE; FLULAVAL; FLUARIX; AFLURIA QUADRIVALENT; 6MO+), 0.5 ML (IIV4) 08/20/2019 MENINGOCOCCAL ACWY (MCV4P) VAC IM 09/15/2018, Meningococcal B Recombinant 2 Dose, IM 8,07/21/2018 PNEUMOCOCCAL PPSV23 10/03/2018,08/07/2017,2007 Pneumococcal Pcv13 Conj 07/21/2018,08/04/2008 iNFLUENZA VACCINE, RECOM-WILKES, QUADR. (FLUBLOCK QUADRIVALENT; 18Y+) (RIV4) 08/04/2020 Social History Tobacco Use Types Packs/Day Years Used Date Smoking Tobacco: Former Cigarettes 1 20 1 - 2011 Smokeless Tobacco: Never Tobacco Cessation:Counseling Given: Not Answered Alcohol Use Standard Drinks/Week Comments Not Currently [...] AM CDT Legal Sex Male 1:47 PM STEPDOWN NURSE Gender Identity Male 01/12/2024 10:15 AM CDT Sexual Orientation Straight 01/12/2024 10 :15 AM CDT Last Filed Vital Signs Vital Sign Reading Time Taken Comments Blood Pressure 132/75 07/27/2025 3:00 PM CDT Pulse 57 07/27/2025 3:00 PM CDT Temperature 36.2 C (97.2 F) 07/27/2025 11:14 AM CDT Respiratory Rate 16 07/27/2025 2:32 PM CDT Oxygen Saturation 93% 07/27/2025 3:00 PM CDT Inhaled Oxygen Concentration - - Weight 97.6 kg (215 lb 3.2 oz) 07/27/2025 11:14 AM CDT Height 182.9 cm (6') 07/27/2025 11:14 AM CDT Body Mass Index 29.19 07/27/2025 11:14 AM CDT Plan of Treatment Upcoming Encounters Date Type Department Care Team (Late st Contact Info) Description 08/11/2025 8:45 AM CDT Office Visit [facility] Orthopedics [address] [place] [phone] Cam Carey PA-C [address] [facility] [address] [place] [phone] 08/19/2025 9:00 AM CDT Office Visit [facility] - Ophthalmology [address] [place] [address], [place] [phone] Susannah Wu OD [address] [place] [address] [address] [place] [phone] 09/08/2025 8:40 AM STEPDOWN NURSE Office Visit [facility] [address] [place] [address] Leno Herrera DO [address] [place] [address] [place] [phone] 09/23/2025 11:20 AM STEPDOWN NURSE Office Visit [facility] - Endocrinology [address] [place] [phone] Katja Li MD [address] [place] [address] [place] [phone] Health Maintenance Due Date Last Done Comments COLOGUARD (AGES 45-75) - COLON CA SCREENING 1960 COLON MONITORING 1960 COLONOSCOPY - COLON CA SCREENING 1960 CT COLONOGRAPHY - COLON CA SCREENING 1960 Colorectal Cancer Screening 1960 FIT - COLON CA SCREENING 1960 FLEX SIG - COLON CA SCREENING 1960 COVID-19 VACCINE (#1) 1965 HIV SCREENING 1975 HEPATITIS C SCREENING 12/24/1978 DTAP/TDAP/TD VACCINES (1 - Tdap) 1979 ZOSTER VACCINE (1 of 2) 1979 DIABETES-STATIN 2000 LUNG CANCER SCREENING 02/04/2019 02/04/2018 Respiratory Syncytial Virus (RSV) Vaccine Pt: or over 60 yrs (1 - Risk 60-74 years 1-dose series) 2020 PNEUMOCOCCAL VACCINE 50+ (4 of 4 - PCV20 or PCV21) 10/03/2023 10/03/2018, 07/21/2018, 08/07/2017, Additional history exists DIABETES-FOOT EXAM WITH MONOFILAMENT 01/07/2024 DEPRESSION SCREENING 11/04/2024 INFLUENZA VACCINE (#1) 2025 , 08/21/2024, 07/23/2023, Additional history exists DIABETES-HGB A1C 10/12/2025 07/13/2025, 06/2025, 04/01/2025, Additional history exists DIABETES RETINOPATHY SCREENING 06/30/2026 06/30/2024, 05/20/2024, 03/03/2024 DIABETES - URINE PROTEIN SCREENING 07/13/2026 07/13/2025, 06/22/2025, 05/27/2025, Additional history exists DIABETES-SERUM CREATININE 07/13/20262024, 07/13/2025, 06/22/2025, Additional history exists HIB VACCINE Aged Out 07/21/2018 No longer eligi ble based on patient's age to complete this topic MENINGOCOCCAL (Group B) VACCINE SHARED DECISION-MAKING Aged Out 09/15/2018, 07/21/2018 No longer eligibl e based on patient's age to complete this topic MENINGOCOCCAL GROUPS A/C/Y/W VACCINE Aged Out 09/15/2018, 07/21/2018 No longer eligibl e based on patient's age to complete this topic HEPATITIS B VACCINE Aged Out No longe r eligible based on patient's age to complete this topic HPV VACCINE Aged Out No longer eligi ble based on patient's age to complete this topic Medical Devices Implanted Type Area Trenching Machine Operator Device Identifier Shelf Expiration Date Model / Serial / Lot Graft Skn Surgiclose 19sq Cm Henrry Omega3 Implanted:Qty: 1 on 06/10/2025 by Leno Herrera DO at [facility] Right: Ankle [employer] 12/13/2027 [id number] / / [id number] X Drsg 7x10cm [employer] Or Mesh Omega3 Lf Implanted:Qty: 1 on 06/10/2025 by Leno Herrera DO at [facility] Right: Ankle [employer] 09/15/2026 [id number] / / [id number] A Graft Skn Surgiclose 19sq Cm Henrry Omega3 Implanted:Qty: 1 on 07/27/2025 by Leno Herrera DO at [facility] Right: Ankle [employer] 12/13/2027 [id number] / / [id number] X Gft Skn 4x6 Cm Msh Omega3 Surgiclose Implanted:Qty: 1 on 07/27/2025 by Leno Herrera DO at [facility] Right: Ankle [employer] 07/21/2027 [id number] / / [id number] A Procedures Procedure Name Priority Date/Time Associated Diagnosis Comments XR ANKLE RIGHT 3VW OR MORE Routine 08/04/2025 8:13 AM CDT Post-operative state GLUCOSE - POINT OF CARE Routine 07/27/2025 2:31 PM CDT EKG 12-LEAD STAT 07/27/2025 2:10 PM CDT Other cardiac arrhythmia CULTURE WOUND+GRAM STAIN STAT 07/27/2025 1:25 PM CDT Infection CULTURE ANAEROBE STAT 07/27/2025 1:25 PM CDT Infection VA PORFIRIO MUSC/FASCIA 20 SQ CM/< 07/27/2025 12:40 PM CDT T81.40XA Special Needs IRRISEPT, IRRAJET, KERECIS FISH SKIN GRAFT GLUCOSE - POINT OF CARE Routine 07/27/2025 11:14 AM CDT VAS ARTERIAL ANKLE ARM INDEX MARANDA 07/26/2025 9:32 AM CDT Bilateral leg and foot pain GLUCOSE - POINT OF CARE Routine 06/10/2025 2:49 PM CDT CULTURE WOUND+GRAM STAIN STAT 06/10/2025 2:31 PM CDT Diagnosis unknown CULTURE ANAEROBE STAT 06/10/2025 2:31 PM CDT Diagnosis unknown VA PORFIRIO MUSC/FASCIA 20 SQ CM/< 06/10/2025 1:11 PM CDT T81.40XA Special Needs IRRISEPT, IRRAJET, WOUND VAC GLUCOSE - POINT OF CARE Routine 06/10/2025 9:25 AM CDT HEMOGLOBIN A1C - POINT OF CARE (AMB) [facility] Routine 01/04/2025 11:06 AM STEPDOWN NURSE Type 2 diabetes mellitus with other specified complication, with long-term current use of insulin MICROALB/CREAT RATIO URINE RANDOM PANEL 02/14/2024 9:21 AM CDT COMPREHENSIVE METABOLIC PANEL 02/14/2024 9:21 AM CDT from Last 3 Months or Most Recently Relevant to Health Maintenance Results * XR Ankle Right 3Vw or More (08/04/2025 8:13 AM CDT) Narrative [facility] - 08/04/2025 8:13 AM CDT For details of this study, please see the providers note. us Cam Carey PA-C DIAGNOSTIC IMAGING ORDERABLE S Final Result [facility] * GLUCOSE - POINT OF CARE (07/27/2025 2:31 PM CDT) Only the most recent of4 resultswithin the time period is included. Glucose WB/POC 99 70 - 99 mg/dL 07/27/2025 2:34 PM CDT [facility] Specimen Type Arterial/C apillary 07/27/2025 2:34 PM CDT [facility] Blood BLOOD SPECIMEN / Unknown 07/27/2025 2:31 PM CDT 07/27/2025 2:34 PM CDT Leno Osborneangélica LAB - POINT OF CARE ORDERABLE S Final Result Performing Organization Address City/[facility]/ZIP Co de Phone Number [facility] [address] [place] [address] * EKG 12-Lead (07/27/2025 2:10 PM CDT) Ventricular Rate 70 BPM [facility] Atrial Rate 70 BPM [facility] P-R Interval 344 ms [facility] QRS Duration ms 106 ms [facility] Q-T Interval ms 414 ms [facility] QTC Calculation (Bezet) 447 ms [facility] Calculated P [place] 29 degrees [facility] Calculated R [place] -39 degrees [facility] Calculated T [place] 103 degrees [facility] Interpretation EKG Sinus rhythm with 1st degree A-V block with Premature supraventricular complexes Left axis deviation Left ventricular hypertrophy with repolarization abnormality ( R in aVL , Frank product ) Anteroseptal infarct , age undetermined Abnormal ECG No previous ECGs available Confirmed by POWER HOLGUIN LEE ([id number]) on 07/28/2025 11:14:07 AM [facility] 07/27/2025 2:10 PM CDT 07/28/2025 11:14 AM CDT Anish Crow MD ECG ORDERABLES Edited Result - Final Performing Organization Address City/[facility] Co de Phone Number [facility] * CULTURE WOUND+GRAM STAIN (07/27/2025 1:25 PM CDT) Only the most recent of2 resultswithin the time period is included. Culture No growth HENRRY 07/30/2025 12:21 AM CDT [facility] Gram Stain Light Red blood cells 07/30/2025 12:21 AM CDT [facility] Gram Stain Rare Polymorphonuclear cells 07/30/2025 12:21 AM CDT [facility] Gram Stain Rare Gram-positive cocci 07/30/2025 12:21 AM CDT [facility] Microbiology SPECIMEN FROM WOUND / Unknown Collection / Unknown 07/27/2025 1:25 PM CDT 07/27/2025 3:11 PM CDT Comment:Pre-op diagnosis: T81.40XA Narrative [facility] - 07/30/2025 12:21 AM CDT Surgical Description: Wound Culture Lateral Ankle Organisms seen on initial Gram stain may be anaerobic or not viable for aerobic growth. Leno Herrera DO LAB - MICROBIOLOGY ORDERABLES Final Result Performing Organization Address [facility] de Phone Number [facility] [address] [place] [address], [facility] [phone] * (ABNORMAL) CULTURE ANAEROBE (07/27/2025 1:25 PM CDT) Only the most recent of2 resultswithin the time period is included. Culture Rare Staphylococcus intermedius/pseudo ntermedius(A) HENRRY 08/02/2025 3:09 PM CDT [facility] Microbiology SPECIMEN FROM WOUND / Unknown Collection / Unknown 07/27/2025 1:25 PM CDT 07/27/2025 3:11 PM CDT Comment:Pre-op diagnosis: T81.40XA Narrative [facility] - 08/02/2025 3:09 PM CDT Surgical Description: Wound Culture Lateral Ankle Organism Antibiotic Method Susceptibility Staphylococcus intermedius/pseudontermediu s Cefazolin HENRRY Susceptible Staphylococcus intermedius/pseudontermediu s Clindamycin HENRRY 0.25 ug/mL: Susceptible Staphylococcus intermedius/pseudontermediu s Doxycycline HENRRY 8 ug/mL: Intermediate Staphylococcus intermedius/pseudontermediu s Inducible Clindamycin Resistance HENRRY NEG ug/mL: Neg Staphylococcus intermedius/pseudontermediu s Oxacillin HENRRY <=0.25 ug/mL: Susceptible Staphylococcus intermedius/pseudontermediu s Trimethoprim-sulfamethox azole HENRRY <=10 ug/mL: Susceptible Leno Herrera DO LAB - MICROBIOLOGY ORDERABLES Final Result [facility] [address] [place] [address], [facility] [phone] * VAS Arterial Ankle Arm Index (07/26/2025 9:32 AM CDT) Anatomical Region Laterality Modality Ankle / Foot, Upper Extremity In travascular Ultrasound 07/26/2025 9:15 AM CDT Narrative Procedure Note Sophie Wing DO - 07/26/2025 [facility] [address] [place] [address] Lower Extremity Arterial Doppler Report Pat.Name: BIBIANA MAYFIELD Pat.ID: [id number] .Date: 07/26/2025 Exam Time: 9:15:00 AM Study Type:VINH/PVR Age: 2 1960,64Y Sex: MALE Sonogrphr: Amy Martinez, OTILIOT,RDMS, RDCS Pat. Stat.:Outpatient CPT - 4: 29967 Reason for Study: Wound on the right foot History / Clinical: Hypertension, Diabetes, CVA, Smoking - quit >6mo. Procedures: Ankle Brachial Index Visit ID: [id number] ++++++++++++++++++++++++++++++++++++ SUMMARY: ++++++++++++++++++++++++++++++++++++ The digital brachial indices are slightly decreased. This may indicate some degree of small vessel change, however, overall the study does not indicate significant arterial insufficiency. ++++++++++++++++++++++++++++++++++++ FINDINGS: ++++++++++++++++++++++++++++++++++++ Procedure: The arterial vasculature of the lower extremities was evaluated by analysis of Doppler pressures and waveforms obtained in the legs at rest. Study Quality: Technically difficult exam due to patient movement, edema, and bandaging. Doppler Waveforms: Right Left Common Fem Tri to Bi Triphasic Popliteal Triphasic Triphasic Posterior Tibial Tri to Bi Tri to Bi Dorsalis Pedis Bi to Levy Tri to Bi ++++++++++++++++++++++++++++++++++++ MEASUREMENTS: ++++++++++++++++++++++++++++++++++++ PRESSURES Right 1st Digit GreatToe P 46 mmHg Right VINH (DP) VINH (DP) 0.96 Right VINH (PT) VINH (PT) 0.95 Right Ankle DP AnkleDP P 137 mmHg Right Ankle PT AnklePT P 127 mmHg Right Brachial Brach P 142 mmHg Right DBI DBI 0.32 Left 1st Digit GreatToe P 82 mmHg Left VINH (DP) VINH (DP) 1.2 Left VINH (PT) VINH (PT) 0.98 Left Ankle DP AnkleDP P 166 mmHg Left Ankle PT AnklePT P 139 mmHg Left Brachial Brach P 134 mmHg Left DBI DBI 0.58 Signed 07/26/2025 12:13 PM Sophie Wing MD Cam Carey PA-C VASCULAR LAB ORDERABLES Edit ed * HEMOGLOBIN A1C - POINT OF CARE (AMB) [facility] (01/04/2025 11:06 AM STEPDOWN NURSE) [facility] Hemoglobin A1c POCT 9.8 % [facility] BLOOD SPECIMEN / Unknown 01/04/2025 11:06 AM STEPDOWN NURSE Katja Li MD LAB - POINT OF CARE ORDERABLES Final Result Performing Organization Address [facility] Co de Phone Number [facility] [address] [facility], [place] [address], [facility] [phone] * (ABNORMAL) MICROALB/CREAT RATIO URINE RANDOM PANEL (02/14/2024 9:21 AM CDT) Creatinine Urine 46 20 - 320 mg/dL [facility] Microalbumin Urine 2.9 mg/dL [facility] Comment: Reference Range Not established Microalbumin/Creat inine Ratio 63(H) <30 mg/g creat [facility] Comment: The ADA defines abnormalities in albumin excretion as follows: Albuminuria Category Result (mg/g creatinine) Normal to Mildly increased <30 Moderately increased 30-299 Severely increased > OR = 300 The ADA recommends that at least two of three specimens collected within a 3-6 month period be abnormal before considering a patient to be within a diagnostic category. REPORT COMMENT: FASTING:YES Test Performed at: [employer] [address] [place] [address] KHOA HATCH MD 02/14/2024 9:21 AM CDT 02/14/2024 9:24 AM CDT Katja Li MD LAB - URINE CHEMISTRY ORDERABLE S Final Result Performing Organization Address City/[facility]/ZIP Co de Phone Number [facility] [address] [place] [address] * (ABNORMAL) COMPREHENSIVE METABOLIC PANEL (02/14/2024 9:21 AM CDT) Glucose 218(H) 65 - 99 mg/dL [facility] Comment: Fasting reference interval For someone without known diabetes, a glucose value >125 mg/dL indicates that they may have diabetes and this should be confirmed with a follow-up test. BUN 31(H) 7 - 25 mg/dL [facility] Creatinine 1.45(H) 0.70 - 1.35 mg/dL [facility] eGFR by Cystatin C 54(L) > OR = 60 mL/min/1.7 3m2 [facility] BUN/Creatinine Ratio 21 6 - 22 (calc) [facility] Sodium 133(L) 135 - 146 mmol/L [facility] Potassium 5.2 3.5 - 5.3 mmol/L [facility] Chloride 97(L) 98 - 110 mmol/L [facility] CO2 28 20 - 32 mmol/L [facility] Calcium 9.3 8.6 - 10.3 mg/dL [facility] Protein Total 6.7 6.1 - 8.1 g/dL [facility] Albumin 3.7 3.6 - 5.1 g/dL [facility] Globulin Total 3.0 1.9 - 3.7 g/dL (calc) [facility] Albumin/Globulin Ratio 1.2 1.0 - 2.5 (calc) [facility] Bilirubin Total 0.4 0.2 - 1.2 mg/dL [facility] Alkaline Phosphatase 96 35 - 144 U/L [facility] AST 16 10 - 35 U/L [facility] ALT 12 9 - 46 U/L [facility] Comment: Test Performed at: [employer] [facility] [address] KHOA HATCH MD 02/14/2024 9:21 AM CDT 02/14/2024 9:24 AM CDT Katja Li MD LAB - CHEMISTRY ORDERABLES Joana l Result [facility] [address] [place] [address] from Last 3 Months or Most Recently Relevant to Health Maintenance Insurance ANTH
--- OUTSIDE RECORDS SUMMARY | 2025-08-09 09:30 | XMS_ITS | Encounter Summary ---
Author Organization [facility] Address [address] [place] [address] Care Team Providers Care Slitter And Cutter Operator Name Role Phone Juan Laguerre MD Primary Care Provider [phone] Bro AWAN MD, Aubrey Lane Unavailable [phone] Jaki Nieves PhD Unavailable [phone] Source Comments In the event that this is information that is protected by federal Confidentiality of Substance User Disorder Patient Records, 42 CFR Part 2 prohibits the unauthorized disclosure of these records.[facility] Encounter Details Date Type Department Care Team (Late Contact Info) Description 05/06/2023 Orders Only [place] Transplant Surgery [address] [facility], [address]th [address] [place] [address] Mee Michele RN Social History Tobacco Use [...] Upcoming Encounters Date Type Department Care Team ([facility] Contact Info) Description 07/15/2026 1:00 PM CDT Office Visit [place] Transplant Surgery [address] [facility], [address] [place], [place] [address] Apt confirmed-EH documented as of this encounter Visit Diagnoses Diagnosis Kidney transplant recipient 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
--- OUTSIDE RECORDS SUMMARY | 2025-08-09 09:30 | XMS_ITS | Encounter Summary ---
Author Organization [facility] Address [address] [place] [address] Care Team Providers Care News Internship Name Role Phone Juan Laguerre MD Primary Care Provider [phone] Bro AWAN MD, Aubrey Lane Unavailable [phone] Jaki Nieves PhD Unavailable [phone] Source Comments In the event that this is information that is protected by federal Confidentiality of Substance User Disorder Patient Records, 42 CFR Part 2 prohibits the unauthorized disclosure of these records.[facility] Encounter Details Date Type Department Care Team (Late Contact Info) Description 07/01/2023 Orders Only NM Transplant Surgery [address] [facility], [address]th [address] [place] [address] Mee Michele RN Social History Tobacco Use [...] Upcoming Encounters Date Type Department Care Team ([facility] Contact Info) Description 07/15/2026 1:00 PM CDT Office Visit [place] Transplant Surgery [address] [facility], [address]th [address] [place], [place] [address] Apt confirmed-EH documented as of this encounter Visit Diagnoses Diagnosis Kidney transplant recipient 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
--- OUTSIDE RECORDS SUMMARY | 2025-08-09 09:30 | XMS_ITS | Encounter Summary ---
Author Organization [facility] Address [address] [place] [address] Care Team Providers Care Commercial Fisherman Name Role Phone Juan Laguerre MD Primary Care Provider [phone] Bro AWAN MD, Aubrey Lane Unavailable [phone] Jaki Nieves PhD Unavailable [phone] Source Comments In the event that this is information that is protected by federal Confidentiality of Substance User Disorder Patient Records, 42 CFR Part 2 prohibits the unauthorized disclosure of these records.[facility] Encounter Details Date Type Department Care Team (Late st Contact Info) Description 04/13/2019 Orders Only NM Transplant Surgery [address] [facility], [address]th [address] [place], [place] [address] Cathleen Gallegos MD [address] [facility] [address], [place] [address] Social History Tobacco Use Types Packs/Day Years [...] Office Visit [place] Transplant Surgery [address] [facility], [address] [place] [address] Apt confirmed-EH documented as of this encounter Visit Diagnoses Diagnosis Kidney transplant 01/02/2008 Liver transplant 01/02/2008 Liver replaced by transplant documented in this encounter Additional Health Concerns Infection Onset Date Last Indicated Resolved Time COVID-19 Comment:Tested + on 09/0109/01/2020 09/05/2020 09/25/2020 12: 31 AM SOCIAL WORKER CLINICAL documented as of this encounter Care Teams Commercial Fisherman Relationship Specialty Start Date End Date Juan Laguerre MD [address] [facility] [address] [place] [address] PCP - General Family Medicine 01/02/18 Aubrey Crabtree III, MD [address] [facility] [address] [place] [address] Hematology and Medical Oncology 10/01/18 Jaki Nieves, PhD [address] [facility] [address] [place] [address] Genetic Counseling 11/27/18 documented as of this encounter
--- OUTSIDE RECORDS SUMMARY | 2025-08-09 09:30 | XMS_ITS | Encounter Summary ---
Author Organization [facility] Address [address] [place] [address] Care Team Providers Care Mult Au Matic Operator Name Role Phone Juan Laguerre MD Primary Care Provider [phone] Bro AWAN MD, Aubrey Lane Unavailable [phone] Jaki Nieves PhD Unavailable [phone] Source Comments In the event that this is information that is protected by federal Confidentiality of Substance User Disorder Patient Records, 42 CFR Part 2 prohibits the unauthorized disclosure of these records.[facility] Encounter Details Date Type Department Care Team (Late Contact Info) Description 05/27/2023 Orders Only NM Transplant Surgery [address] [facility], [address]th [address] [place] [address] Mee Michele RN Social History Tobacco Use [...] Upcoming Encounters Date Type Department Care Team ([facility] Contact Info) Description 07/15/2026 1:00 PM CDT Office Visit NM Transplant Surgery [address] [facility], [address] [place], [place] [address] Apt confirmed-EH documented as of this encounter Visit Diagnoses Diagnosis Kidney transplant recipient 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
--- OUTSIDE RECORDS SUMMARY | 2025-08-09 09:30 | XMS_ITS | Encounter Summary ---
Author Organization [facility] Address [address] [place] [address] Care Team Providers Care Keypunch Operators Supervisor Name Role Phone Juan Laguerre MD Primary Care Provider [phone] Bro AWAN MD, Aubrey Lane Unavailable [phone] Jaki Nieves PhD Unavailable [phone] Source Comments In the event that this is information that is protected by federal Confidentiality of Substance User Disorder Patient Records, 42 CFR Part 2 prohibits the unauthorized disclosure of these records.[facility] Encounter Details Date Type Department Care Team (Late Contact Info) Description 05/13/2023 Orders Only NM Transplant Surgery [address] [facility], [address]th [address] [place] [address] Mee Michele RN Social History Tobacco Use [...] Upcoming Encounters Date Type Department Care Team ([facility] Contact Info) Description 07/15/2026 1:00 PM CDT Office Visit [place] Transplant Surgery [address], [address] [place] [address] Apt confirmed-EH documented as of this encounter Procedures Procedure Name Priority Date/Time Associated Diagnosis Comments EVEROLIMUS LEVEL Routine 05/14/2023 3:24 PM CDT OP URINALYSIS WITH MICROSCOPIC, REFLEX TO CULTURE Routine 05/14/2023 3:24 PM CDT PROTEIN/CREAT RATIO, RANDOM URINE Routine 05/14/2023 3:24 PM CDT CBC AND DIFFERENTIAL Routine 05/14/2023 3:24 PM CDT HEMOGLOBIN A1C Routine 05/14/2023 3:24 PM CDT BILIRUBIN DIRECT Routine 05/14/2023 3:24 PM CDT COMPREHENSIVE METABOLIC PANEL Routine 05/14/2023 3:24 PM CDT documented in this encounter Results * Everolimus Level (05/14/2023 3:24 PM CDT) Pathologist [facility] Everolimus Level - External 6.4 EXTERNAL LAB 05/14/2023 3:24 PM CDT Narrative EXTERNAL LAB - 05/27/2023 1:06 PM CDT Verified by Koki Burks on 05/27/2023. us Physician Non-Staff CHEMISTRY ORDERABLES Final R esult EXTERNAL LAB * (ABNORMAL) Hemoglobin A1c (05/14/2023 3:24 PM CDT) Hemoglobin A1C - External 89(H) 3.8 - 5.6 % EXTERNAL LAB Estimated Average Glucose - External 208.7 mg/dL EXTERNAL LAB 05/14/2023 3:24 PM CDT Narrative EXTERNAL LAB - 05/27/2023 1:04 PM CDT Verified by Koki Burks on 05/27/2023. Cathleen Gallegos MD CHEMISTRY ORDERABLES Final Resul t EXTERNAL LAB * (ABNORMAL) Comprehensive Metabolic Panel (05/14/2023 3:24 PM CDT) Sodium - External 138 133 - 145 mmol/L EXTERNAL LAB Potassium - External 5.0 3.5 - 5.1 mmol/L EXTERNAL LAB Chloride - External 103 96 - 108 mmol/L EXTERNAL LAB CO2 - External 25 21 - 32 mmol/L EXTERNAL LAB Anion Gap - External 15.0 10.0 - 20.0 mmol/L EXTERNAL LAB Urea Nitrogen - External 33(H) 6 - 19 mg/dL EXTERNAL LAB Creatinine - External 1.80(H) 0.50 - 1.30 mG/dL EXTERNAL LAB GFR() - External 42 EXTERNAL LAB Glucose - External 225(H) 80 - 115 mg/dL EXTERNAL LAB Calcium - External 9.0 8.8 - 10.0 mg/dL EXTERNAL LAB Alkaline Phos - External 116 39 - 117 u/L EXTERNAL LAB AST (SGOT) - External 18 0 - 37 u/L EXTERNAL LAB ALT (SGPT) - External 23 12 - 55 u/L EXTERNAL LAB Total Bilirubin - External 0.4 0.0 - 1.0 mg/dL EXTERNAL LAB Total Protein - External 6.5 6.0 - 8.2 G/DL EXTERNAL LAB Albumin - External 3.1(L) 3.4 - 4.8 gm/dl EXTERNAL LAB 05/14/2023 3:24 PM CDT Narrative EXTERNAL LAB - 05/27/2023 1:04 PM CDT Verified by Koki Burks on 05/27/2023. Cathleen Gallegos MD CHEMISTRY ORDERABLES Final Resul t EXTERNAL LAB * Bilirubin, Direct (05/14/2023 3:24 PM CDT) Direct Bilirubin - External <0.1 0.0 - 0.3 mg/dL EXTERNAL LAB 05/14/2023 3:24 PM CDT Narrative EXTERNAL LAB - 05/27/2023 1:04 PM CDT Verified by Koki Burks on 05/27/2023. Cathleen Gallegos MD CHEMISTRY ORDERABLES Final Resul t Performing Organization Address [facility] Co de Phone Number EXTERNAL LAB * (ABNORMAL) CBC with Differential (05/14/2023 3:24 PM CDT) Hemoglobin - External 15.7 13.1 - 17.2 gm/dl EXTERNAL LAB Hematocrit - External 53.7(H) 39.8 - 52.2 % EXTERNAL LAB Red Blood Cells - External 6.71(H) 4.30 - 5.70 x10^6 EXTERNAL LAB MCV - External 80.0 80.0 - 100.0 fl EXTERNAL LAB MCH - External 23.4(L) 26.5 - 33.9 PG EXTERNAL LAB MCHC - External 29.2(L) 31.5 - 36.0 % EXTERNAL LAB RDW - External 22.3(H) 11.8 - 15.5 % EXTERNAL LAB White Blood Cells - External 10.9 3.9 - 11.0 x10^3 EXTERNAL LAB Basophils - External 3 0 - 100 % EXTERNAL LAB Platelets - External 177 140 - 445 x10^3 EXTERNAL LAB Neutrophils Abs (cells/uL) - External 7.96 EXTERNAL LAB Lymph Absolute - External 1.85 EXTERNAL LAB [place] Absolute - External 0.44 EXTERNAL LAB - External 0.33 EXTERNAL LAB Basophil Absolute - External 0.22 EXTERNAL LAB 05/14/2023 3:24 PM CDT Narrative EXTERNAL LAB - 05/27/2023 1:04 PM CDT Verified by Koki Burks on 05/27/2023. Cathleen Gallegos MD HEMATOLOGY ORDERABLES Final Resu lt Performing Organization Address City/[facility]/ZIP Co de Phone Number EXTERNAL LAB * (ABNORMAL) Urinalysis w/Microscopic, reflex culture (05/14/2023 3:24 PM CDT) UA Color - External Yellow Yellow EXTERNAL LAB UA Appearance - External Clear Clear EXTERNAL LAB UA pH - External 5.5 5.0 - 8.0 EXTERNAL LAB Specific [place], Urine - External 1.022 1.003 - 1.035 EXTERNAL LAB UA Protein - External 1+ Negative EXTERNAL LAB UA Glucose - External 3+ Negative EXTERNAL LAB UA Ketones - External Trace(H) Negative EXTERNAL LAB UA Bilirubin - External Negative Negative EXTERNAL LAB UA Blood - External Negative Negative EXTERNAL LAB UA Urobilinogen - External <2.0 0.0 - 2.0 mg/dL EXTERNAL LAB UA Nitrate - External Negative Negative EXTERNAL LAB UA Leukocyte Esterase - External Negative Negative EXTERNAL LAB UA WBC - External 0-5 <1 EXTERNAL LAB UA RBC - External 0-5 <1 EXTERNAL LAB 05/14/2023 3:24 PM CDT Narrative EXTERNAL LAB - 05/27/2023 1:04 PM CDT Verified by Koki Burks on 05/27/2023. us Cathleen Gallegos MD URINE ORDERABLES Final Result Performing Organization Address City/[facility]/ZIP Co de Phone Number EXTERNAL LAB * Protein/Creatinine Ratio, Urine (05/14/2023 3:24 PM CDT) Urine Creatinine, Random - External 206.0 mg/dL EXTERNAL LAB Protein, Urine - External 42 EXTERNAL LAB Prot/Creat Ratio - External 0.2 EXTERNAL LAB 05/14/2023 3:24 PM CDT Narrative EXTERNAL LAB - 05/27/2023 1:04 PM CDT Verified by Koki Burks on 05/27/2023. 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) Liver replaced by transplant Encounter for monitoring immunomodulating therapy Encounter for therapeutic drug monitoring documented in this encounter Care Teams Keypunch Operators Supervisor Relationship Specialty Start Date End Date Juan Laguerre MD [address] [place] [address] PCP - General Family Medicine 01/02/18 Aubrey Crabtree III, MD [address] [place] [address] [address] [address] Hematology and Medical Oncology 10/01/18 Jaki Nieves, PhD [address] [facility] [address] [place] [address] Genetic Counseling 11/27/18 documented as of this encounter
--- OUTSIDE RECORDS SUMMARY | 2025-08-09 09:30 | XMS_ITS | Encounter Summary ---
Author Organization [facility] Address [address] [place] [address] Care Team Providers Care Customer Support Coordinator Name Role Phone Juan Laguerre MD Primary Care Provider [phone] Bro AWAN MD, Aubrey Lane Unavailable [phone] Jaki Nieves PhD Unavailable [phone] Source Comments In the event that this is information that is protected by federal Confidentiality of Substance User Disorder Patient Records, 42 CFR Part 2 prohibits the unauthorized disclosure of these records.[facility] Encounter Details Date Type Department Care Team (Late Contact Info) Description 07/01/2023 Orders Only NM Transplant Surgery [address] [facility], [address]th [address] [place] [address] Kristel Chisholm RN Social History Tobacco Use [...] Office Visit NM Transplant Surgery [address] [facility], [address] [place] [address] Apt confirmed-EH documented as of this encounter Visit Diagnoses Diagnosis 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
--- OUTSIDE RECORDS SUMMARY | 2025-08-09 09:30 | XMS_ITS | Encounter Summary ---
Author Organization [facility] Address [address] [place] [address] Care Team Providers Care Frame Aligner Name Role Phone Juan Laguerre MD Primary Care Provider [phone] Bro AWAN MD, Aubrey Lane Unavailable [phone] Jaki Nieves PhD Unavailable [phone] Source Comments In the event that this is information that is protected by federal Confidentiality of Substance User Disorder Patient Records, 42 CFR Part 2 prohibits the unauthorized disclosure of these records.[facility] Encounter Details Date Type Department Care Team (Late Contact Info) Description 07/29/2023 Orders Only NM Transplant Surgery [address] [facility], [address]th [address] [place] [address] Mee Michele RN Social History Tobacco Use [...] Upcoming Encounters Date Type Department Care Team ([facility] Contact Info) Description 07/15/2026 1:00 PM CDT Office Visit NM Transplant Surgery [address] [facility], [address] [place], [place] [address] Apt confirmed-EH documented as of this encounter Visit Diagnoses Diagnosis Kidney transplant recipient 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
--- OUTSIDE RECORDS SUMMARY | 2025-08-09 09:30 | XMS_ITS | Encounter Summary ---
Author Organization [facility] Address [address] [place] [address] Care Team Providers Care Blade Boner Name Role Phone Juan Laguerre MD Primary Care Provider [phone] Bro AWAN MD, Aubrey Lane Unavailable [phone] Jaki Nieves PhD Unavailable [phone] Source Comments In the event that this is information that is protected by federal Confidentiality of Substance User Disorder Patient Records, 42 CFR Part 2 prohibits the unauthorized disclosure of these records.[facility] Encounter Details Date Type Department Care Team (Late Contact Info) Description 06/03/2023 Orders Only NM Transplant Surgery [address] [facility], [address]th [address] [place] [address] Kristel Chisholm RN Social History Tobacco Use [...] Office Visit NM Transplant Surgery [address] [facility], [address] [place] [address] Apt confirmed-EH documented as of this encounter Visit Diagnoses Diagnosis 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
--- OUTSIDE RECORDS SUMMARY | 2025-08-09 09:30 | XMS_ITS | Encounter Summary ---
Author Organization [facility] Address [address] [place] [address] Care Team Providers Care Development Executive Name Role Phone Juan Laguerre MD Primary Care Provider [phone] Bro AWAN MD, Aubrey Lane Unavailable [phone] Jaki Nieves PhD Unavailable [phone] Source Comments In the event that this is information that is protected by federal Confidentiality of Substance User Disorder Patient Records, 42 CFR Part 2 prohibits the unauthorized disclosure of these records.[facility] Encounter Details Date Type Department Care Team (Late st Contact Info) Description 04/20/2019 Orders Only NM Transplant Surgery [address] [facility], 19th Floor [address] [place], [place] [address] Cathleen Gallegos MD [address] [facility] [address], [place] [address] Social History Tobacco Use Types Packs/Day Years [...] Office Visit NM Transplant Surgery [address] [facility], 19th Floor [address] [place] [address] Apt confirmed-EH documented as of this encounter Visit Diagnoses Diagnosis Kidney transplant 01/02/2008 Liver transplant 01/02/2008 Liver replaced by transplant documented in this encounter Additional Health Concerns Infection Onset Date Last Indicated Resolved Time COVID-19 Comment:Tested + on 09/0109/01/2020 09/05/2020 09/25/2020 12: 31 AM 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
--- OUTSIDE RECORDS SUMMARY | 2025-08-09 09:30 | XMS_ITS | Encounter Summary ---
Author Organization [facility] Address [address] [place] [address] Care Team Providers Care Retrieval Specialist Name Role Phone Juan Laguerre MD Primary Care Provider [phone] Bro AWAN MD, Aubrey Lane Unavailable [phone] Jaki Nieves PhD Unavailable [phone] Source Comments In the event that this is information that is protected by federal Confidentiality of Substance User Disorder Patient Records, 42 CFR Part 2 prohibits the unauthorized disclosure of these records.[facility] Encounter Details Date Type Department Care Team (Late Contact Info) Description 04/08/2023 Orders Only NM Transplant Surgery [address] [facility], 19th Floor [address] [place] [address] Kristel Chisholm RN Social History Tobacco Use [facility] Floor [address] [place] [address] Apt confirmed-EH documented as of this encounter Visit Diagnoses Diagnosis 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
--- OUTSIDE RECORDS SUMMARY | 2025-08-09 09:30 | XMS_ITS | Encounter Summary ---
Author Organization [facility] Address [address] [place] [address] Care Team Providers Care Wastewater Treatment Plant Attendant Name Role Phone Juan Laguerre MD Primary Care Provider [phone] Bro AWAN MD, Aubrey Lane Unavailable [phone] Jaki Nieves PhD Unavailable [phone] Source Comments In the event that this is information that is protected by federal Confidentiality of Substance User Disorder Patient Records, 42 CFR Part 2 prohibits the unauthorized disclosure of these records.[facility] Encounter Details Date Type Department Care Team (Late Contact Info) Description 07/22/2023 Orders Only NM Transplant Surgery [address] [facility], 19th Floor [address] [place] [address] Mee Michele RN Social History Tobacco Use [...] Office Visit NM Transplant Surgery [address] [facility], 19th Floor [address] [place], [place] [address] Apt confirmed-EH documented as of this encounter Visit Diagnoses Diagnosis Kidney transplant recipient 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
--- OUTSIDE RECORDS SUMMARY | 2025-08-09 09:30 | XMS_ITS | Encounter Summary ---
Author Organization [facility] Address [address] [place] [address] Care Team Providers Care Supervisor Data Processing Name Role Phone Juan Laguerre MD Primary Care Provider [phone] Bro AWAN MD, Aubrey Lane Unavailable [phone] Jaki Nieves PhD Unavailable [phone] Source Comments In the event that this is information that is protected by federal Confidentiality of Substance User Disorder Patient Records, 42 CFR Part 2 prohibits the unauthorized disclosure of these records.[facility] Encounter Details Date Type Department Care Team (Late Contact Info) Description 04/27/2019 Orders Only NM Transplant Surgery [address] [facility], 19th Floor [address] [place] [address] Cara Cook RN Social History Tobacco Use [...] [address], [address] Floor [address] [place] [address] Apt confirmed-EH documented as of this encounter Visit Diagnoses Diagnosis 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) Liver replaced by transplant Kidney replaced by transplant documented in this encounter Additional Health Concerns Infection Onset Date Last Indicated Resolved Time COVID-19 Comment:Tested + on 09/0109/01/2020 09/05/2020 09/25/2020 12: 31 AM 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
--- OUTSIDE RECORDS SUMMARY | 2025-08-09 09:30 | XMS_ITS | Encounter Summary ---
Author Organization [facility] Address [address] [place] [address] Care Team Providers Care Women Designer Name Role Phone Juan Laguerre MD Primary Care Provider [phone] Bro AWAN MD, Aubrey Lane Unavailable [phone] Jaki Nieves PhD Unavailable [phone] Source Comments In the event that this is information that is protected by federal Confidentiality of Substance User Disorder Patient Records, 42 CFR Part 2 prohibits the unauthorized disclosure of these records.[facility] Encounter Details Date Type Department Care Team (Late Contact Info) Description 12/19/2018 Procedure Pass NM Radiology [address], [address] [place] [address] Social History Tobacco Use Types Packs/Day Years [...] Upcoming Encounters Date Type Department Care Team ([facility] Contact Info) Description 07/15/2026 1:00 PM CDT Office Visit NM Transplant Surgery [address] 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
--- OUTSIDE RECORDS SUMMARY | 2025-08-09 09:30 | XMS_ITS | Encounter Summary ---
Author Organization [facility] Address [address] [place] [address] Care Team Providers Care Internet Marketing Strategist Name Role Phone Juan Laguerre MD Primary Care Provider [phone] Bro AWAN MD, Aubrey Lane Unavailable [phone] Jaki Nieves PhD Unavailable [phone] Source Comments In the event that this is information that is protected by federal Confidentiality of Substance User Disorder Patient Records, 42 CFR Part 2 prohibits the unauthorized disclosure of these records.[facility] Encounter Details Date Type Department Care Team (Late Contact Info) Description 07/29/2023 Orders Only NM Transplant Surgery [address] [facility], 19th Floor [address] [place] [address] Kristel Chisholm RN Social History Tobacco Use [...] Upcoming Encounters Date Type Department Care Team ([facility] Contact Info) Description 07/15/2026 1:00 PM CDT Office Visit NM Transplant Surgery [address] [facility], 19th Floor [address] [place] [address] Apt confirmed-EH documented as of this encounter Visit Diagnoses Diagnosis 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 [address] [place] [address] PCP - General Family Medicine 01/02/18 Aubrey Crabtree III, MD [address] [facility] [address] [place] [address] Hematology and Medical Oncology 10/01/18 Jaki Nieves, PhD [address] [facility] [address] [place] [address] Genetic Counseling 11/27/18 documented as of this encounter
--- OUTSIDE RECORDS SUMMARY | 2025-08-09 09:31 | XMS_ITS | Encounter Summary ---
Author Organization [facility] Address [address] [place] [address] Care Team Providers Care Consulting Manager Name Role Phone Juan Laguerre MD Primary Care Provider [phone] Bro AWAN MD, Aubrey Lane Unavailable [phone] Jaki Nieves PhD Unavailable [phone] Source Comments In the event that this is information that is protected by federal Confidentiality of Substance User Disorder Patient Records, 42 CFR Part 2 prohibits the unauthorized disclosure of these records.[facility] Encounter Details Date Type Department Care Team (Late st Contact Info) Description 03/02/2024 Orders Only NM Transplant Surgery [address] [facility], 19th Floor [address] [place], [place] [address] Cathleen Gallegos MD [address] [facility] [address], [place] [address] Social History Tobacco Use Types Packs/Day Years [...] Office Visit NM Transplant Surgery [address] [facility], 19th Floor [address] [place] [address] Apt confirmed-EH documented as of this encounter Visit Diagnoses Diagnosis 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 Type II diabetes mellitus with complication (CMS-HCC) Type II or unspecified type diabetes mellitus with unspecified complication, not stated as uncontrolled Administration of long-term prophylactic antibiotics Encounter for long-term (current) use of antibiotics Encounter for monitoring immunomodulating therapy Encounter for therapeutic drug monitoring documented in this encounter Care Teams Consulting Manager Relationship Specialty Start Date End Date Juan Laguerre MD [address] [address] PCP - General Family Medicine 01/02/18 Aubrey Crabtree III, MD [address] [address] Hematology and Medical Oncology 10/01/18 Jaki Nieves, PhD [address] [facility] [address] [place] [address] Genetic Counseling 11/27/18 documented as of this encounter
--- OUTSIDE RECORDS SUMMARY | 2025-08-09 09:31 | XMS_ITS | Encounter Summary ---
Author Organization [facility] Address [address] [place] [address] Care Team Providers Care Exhibitor Sales Name Role Phone Juan Laguerre MD Primary Care Provider [phone] Bro AAWN MD, Aubrye Lane Unavailable [phone] Jaki Nieves PhD Unavailable [phone] Source Comments In the event that this is information that is protected by federal Confidentiality of Substance User Disorder Patient Records, 42 CFR Part 2 prohibits the unauthorized disclosure of these records.[facility] Encounter Details Date Type Department Care Team (Late st Contact Info) Description 08/26/2023 Orders Only NM Transplant Surgery [address] [facility], 19th Floor [address] [place], [place] [address] Cathleen Gallegos MD [address] [facility] [address] [address] Social History Tobacco Use Types Packs/Day Years [...] Office Visit NM Transplant Surgery [address] [facility], 19th Floor [address] [place], [place] [address] Apt confirmed-EH documented as of this encounter Visit Diagnoses Diagnosis Kidney replaced by transplant documented in this encounter Care Teams Exhibitor Sales Relationship Specialty Start Date End Date Juan Laguerre MD [address] [facility] [address] [place] [address] PCP - General Family Medicine 01/02/18 Aubrey Crabtree III, MD [address] [facility] [address] [place] [address] Hematology and Medical Oncology 10/01/18 Jaki Nieves, PhD [address] [facility] [address] [place], [place] [address] Genetic Counseling 11/27/18 documented as of this encounter
--- OUTSIDE RECORDS SUMMARY | 2025-08-09 09:31 | XMS_ITS | Encounter Summary ---
Author Organization [facility] Address [address] [place] [address] Care Team Providers Care Sales Contractor Name Role Phone Juan Laguerre MD Primary Care Provider [phone] Bro AWAN MD, Aubrey Lane Unavailable [phone] Jaki Nieves PhD Unavailable [phone] Source Comments In the event that this is information that is protected by federal Confidentiality of Substance User Disorder Patient Records, 42 CFR Part 2 prohibits the unauthorized disclosure of these records.[facility] Encounter Details Date Type Department Care Team (Late st Contact Info) Description 03/23/2019 Orders Only NM Transplant Surgery [address] [facility], 19th Floor [address] [place], [place] [address] Cathleen Gallegos MD [address] [facility] [address], [place] [address] Social History Tobacco Use Types Packs/Day Years [...] Office Visit NM Transplant Surgery [address] [facility], 19th Floor [address] [place] [address] Apt confirmed-EH documented as of this encounter Procedures Procedure Name Priority Date/Time Associated Diagnosis Comments CBC AND DIFFERENTIAL Routine 03/27/2019 5:50 AM CDT Kidney transplant 01/02/2008 Liver transplant 01/02/2008 documented in this encounter Results * (ABNORMAL) CBC with Differential (03/27/2019 5:50 AM CDT) Neutrophils Abs (k/uL) - External 2.65 1.40 - 7.30 10(3)/mcL EXTERNAL LAB Lymph Absolute - External 2.71 1.30 - 2.90 10(3)/mcL EXTERNAL LAB [place] Absolute - External 0.48 0.10 - 0.80 10(3)/mcL EXTERNAL LAB - External 0.06 0.00 - 0.30 10(3)/mcL EXTERNAL LAB Basophil Absolute - External 0.12(H) 0.00 - 0.10 10(3)/mcL EXTERNAL LAB Neutrophils - External 44 40 - 68 % EXTERNAL LAB Lymphocytes - External 45 19 - 49 % EXTERNAL LAB Monocytes - External 8 3 - 13 % EXTERNAL LAB Eosinophils - External 1 0 - 8 % EXTERNAL LAB Basophils - External 2(H) 0 - 1 % EXTERNAL LAB White Blood Cells - External 6.03 3.90 - 11.00 10(3)/mcL EXTERNAL LAB Red Blood Cells - External 4.86 4.20 - 5.80 10(6)/mcL EXTERNAL LAB Hemoglobin - External 12.7 12.6 - 17.4 EXTERNAL LAB Hematocrit - External 40 39.8 - 52.2 % EXTERNAL LAB MCV - External 83.5 80.0 - 100.0 fL EXTERNAL LAB MCH - External 26.1(L) 26.5 - 33.9 pg EXTERNAL LAB MCHC - External 31.3(L) 31.5 - 36.0 g/dL EXTERNAL LAB Platelets - External 280 140 - 445 10(3)/mcL EXTERNAL LAB RDW - External 28.2(H) 12.0 - 15.0 % EXTERNAL LAB Blood specimen (specimen) 03/27/2019 5:50 AM CDT Narrative EXTERNAL LAB - 03/28/2019 10:16 AM CDT Verified by Monie Siddiqui on 03/28/2019. us Cathleen Gallegos MD HEMATOLOGY ORDERABLES Final Resu lt EXTERNAL LAB documented in this encounter Visit Diagnoses Diagnosis Kidney transplant 01/02/2008 Liver transplant 01/02/2008 Liver replaced by transplant documented in this encounter Additional Health Concerns Infection Onset Date Last Indicated Resolved Time COVID-19 Comment:Tested + on 09/0109/01/2020 09/05/2020 09/25/2020 12: 31 AM DEADENER documented as of this encounter Care Teams Sales Contractor Relationship Specialty Start Date End Date Juan Laguerre MD [address] [facility] [address] [place] [address] PCP - General Family Medicine 01/02/18 Aubrey Crabtree III, MD [address] [facility] [address] [place] [address] Hematology and Medical Oncology 10/01/18 Jaki Nieves, PhD [address] [facility] [address] [place] [address] Genetic Counseling 11/27/18 documented as of this encounter
--- OUTSIDE RECORDS SUMMARY | 2025-08-09 09:31 | XMS_ITS | Encounter Summary ---
Author Organization [facility] Address [address] [place] [address] Care Team Providers Care Nursing Surgical Services Director Name Role Phone Juan Laguerre MD Primary Care Provider [phone] Bro AWAN MD, Aubrey Lane Unavailable [phone] Jaki Nieves PhD Unavailable [phone] Source Comments In the event that this is information that is protected by federal Confidentiality of Substance User Disorder Patient Records, 42 CFR Part 2 prohibits the unauthorized disclosure of these records.[facility] Encounter Details Date Type Department Care Team (Late st Contact Info) Description 01/06/2024 Orders Only NM Transplant Surgery [address] [facility], 19th Floor [address] [place], [place] [address] Cathleen Gallegos MD [address] [facility] [address], [place] [address] Social History Tobacco Use Types Packs/Day Years [...] Office Visit NM Transplant Surgery [address] [facility], 19th Floor [address] [place] [address] Apt confirmed-EH documented as of this encounter Procedures Procedure Name Priority Date/Time Associated Diagnosis Comments CBC AND DIFFERENTIAL Routine 01/21/2024 9:21 AM CDT 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 Type II diabetes mellitus with complication (CMS-HCC) Administration of long-term prophylactic antibiotics Encounter for monitoring immunomodulating therapy COMPREHENSIVE METABOLIC PANEL Routine 01/21/2024 9:21 AM CDT 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 Type II diabetes mellitus with complication (CMS-HCC) Administration of long-term prophylactic antibiotics Encounter for monitoring immunomodulating therapy documented in this encounter Results * (ABNORMAL) Comprehensive Metabolic Panel (01/21/2024 9:21 AM CDT) Glucose - External 138(H) 65 - 99 mg/dL EXTERNAL LAB Urea Nitrogen - External 26(H) 7 - 25 mg/dL EXTERNAL LAB Creatinine - External 1.50(H) 0.70 - 1.35 mg/dL EXTERNAL LAB Sodium - External 134(L) 135 - 146 mmol/L EXTERNAL LAB Potassium - External 5.6(H) 3.5 - 5.3 mmol/L EXTERNAL LAB Chloride - External 97(L) 98 - 110 mmol/L EXTERNAL LAB CO2 - External 29 20 - 32 mmol/L EXTERNAL LAB Calcium - External 9.5 8.6 - 10.3 mg/dL EXTERNAL LAB Total Protein - External 7.2 6.1 - 8.1 g/dL EXTERNAL LAB Albumin - External 3.9 3.6 - 5.1 g/dL EXTERNAL LAB Total Bilirubin - External 0.5 0.2 - 1.2 mg/dL EXTERNAL LAB Alkaline Phos - External 99 35 - 144 U/L EXTERNAL LAB AST (SGOT) - External 23 10 - 35 U/L EXTERNAL LAB ALT (SGPT) - External 14 9 - 46 U/L EXTERNAL LAB Blood VEIN SPECIMEN / Unknown 01/21/2024 9:21 AM CDT Narrative EXTERNAL LAB - 02/10/2024 3:33 PM CDT Verified by Elzbieta Sam on 02/10/2024. us Noe Keyes MD CHEMISTRY ORDERABLES Final R esult EXTERNAL LAB * (ABNORMAL) CBC with Differential (01/21/2024 9:21 AM CDT) White Blood Cells - External 9.6 8 - 10.8 Thousand/u L EXTERNAL LAB Red Blood Cells - External 7.56(H) 4.20 - 5.80 Million/uL EXTERNAL LAB Hemoglobin - External 17.8(H) 13.2 - 17.1 g/dL EXTERNAL LAB Hematocrit - External 57.6(H) 38.5 - 50.0 % EXTERNAL LAB MCV - External 76.2(L) 80.0 - 100.0 fL EXTERNAL LAB MCH - External 23.5(L) 27.0 - 33.0 pg EXTERNAL LAB MCHC - External 30.9(L) 32.0 - 36.0 g/dL EXTERNAL LAB RDW - External 19.2(H) 11.0 - 15.0 % EXTERNAL LAB Platelets - External 158 140 - 400 Thousand/u L EXTERNAL LAB Neutrophils - External 4,320 1,500 - 7,800 cells/uL EXTERNAL LAB Lymph Absolute - External 3,638 850 - 3,900 cells/uL EXTERNAL LAB [place] Absolute - External 1,046(H) 200 - 950 cells/uL EXTERNAL LAB - External 442 15 - 500 cells/uL EXTERNAL LAB Basophil Absolute - External 154 0 - 200 cells/uL EXTERNAL LAB Neutrophils Abs (k/uL) - External 45 EXTERNAL LAB Lymphocytes - External 37.9 % EXTERNAL LAB Monocytes - External 10.9 % EXTERNAL LAB Eosinophils - External 4.6 % EXTERNAL LAB Basophils - External 1.6 % EXTERNAL LAB Blood VEIN SPECIMEN / Unknown 01/21/2024 9:21 AM CDT Narrative EXTERNAL LAB - 02/10/2024 3:33 PM CDT Verified by Elzbieta Sam on 02/10/2024. us Noe Keyes MD HEMATOLOGY ORDERABLES Final Result EXTERNAL LAB documented in [...] monitoring documented in this encounter Care Teams Nursing Surgical Services Director Relationship Specialty Start Date End Date Juan Laguerre MD [address] [facility] [address] [place] [id number] PCP - General Family Medicine 01/02/18 Aubrey Crabtree III, MD [address] [facility] [address] [place] [address] Hematology and Medical Oncology 10/01/18 Jaki Nieves, PhD [address] [facility] [address] [place] [address] Genetic Counseling 11/27/18 documented as of this encounter
--- OUTSIDE RECORDS SUMMARY | 2025-08-09 09:31 | XMS_ITS | Encounter Summary ---
Author Organization [facility] Address [address] [place] [address] Care Team Providers Care Or Assistant Name Role Phone Juan Laguerre MD Primary Care Provider [phone] Bro AWAN MD, Aubrey Lane Unavailable [phone] Jaki Nieves PhD Unavailable [phone] Source Comments In the event that this is information that is protected by federal Confidentiality of Substance User Disorder Patient Records, 42 CFR Part 2 prohibits the unauthorized disclosure of these records.[facility] Encounter Details Date Type Department Care Team (Late Contact Info) Description 12/20/2018 Procedure Pass NM Radiology [address], [address]th [place] [address] Social History Tobacco Use Types Packs/Day Years [...] Upcoming Encounters Date Type Department Care Team ([facility] Contact Info) Description 07/15/2026 1:00 PM CDT Office Visit NM Transplant Surgery [address] [facility], 19th Floor [address] [place] [address] Apt confirmed-EH documented as of this encounter Visit Diagnoses Not on filedocumented in this encounter Additional Health Concerns Infection Onset Date Last Indicated Resolved Time COVID-19 Comment:Tested + on 09/0109/01/2020 09/05/2020 09/25/2020 12: 31 AM 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
--- OUTSIDE RECORDS SUMMARY | 2025-08-09 09:31 | XMS_ITS | Encounter Summary ---
Author Organization [facility] Address [address] [place] [address] Care Team Providers Care Attending Ambulatory Care Name Role Phone Juan Laguerre MD Primary Care Provider [phone] Bro AWAN MD, Aubrey Lane Unavailable [phone] Jaki Nieves PhD Unavailable [phone] Source Comments In the event that this is information that is protected by federal Confidentiality of Substance User Disorder Patient Records, 42 CFR Part 2 prohibits the unauthorized disclosure of these records.[facility] Encounter Details Date Type Department Care Team (Late st Contact Info) Description 12/24/2022 Orders Only NM Transplant Surgery [address] [facility], 19th [address] [place], [place] [address] Cathleen Gallegos MD [address] [facility] [address], [place] [address] Social History Tobacco Use Types Packs/Day Years [...] [facility], 19th Floor [address] [place] [address] Apt confirmed-EH documented as of this encounter Procedures Procedure Name Priority Date/Time Associated Diagnosis Comments URINALYSIS WITH MICROSCOPIC Routine 01/12/2023 7:51 AM AIRFIELD DEFENCE GUARD Kidney transplant 01/02/2008 BK VIRUS QUANT VIRAL LOAD, URINE Routine 12/18/2022 6:32 AM AIRFIELD DEFENCE GUARD EVEROLIMUS LEVEL Routine 12/18/2022 6:32 AM AIRFIELD DEFENCE GUARD MYCOPHENOLIC ACID Routine 12/18/2022 6:3 2 AM AIRFIELD DEFENCE GUARD documented in this encounter Results * Urinalysis with Microscopic (01/12/2023 7:51 AM AIRFIELD DEFENCE GUARD) UA Glucose - External Negative Negative EXTERNAL LAB UA Ketones - External Negative Negative EXTERNAL LAB UA Bilirubin - External Negative Negative EXTERNAL LAB UA Blood - External Negative Negative EXTERNAL LAB UA Urobilinogen - External <2.0 0.0 - 2.0 mg/dL EXTERNAL LAB UA Nitrate - External Negative Negative EXTERNAL LAB UA Leukocyte Esterase - External Negative Negative EXTERNAL LAB UA WBC - External <1 <1 EXTERNAL LAB UA RBC - External 0-5 <1 EXTERNAL LAB UA Color - External YELLOW EXTERNAL LAB UA Appearance - External CLEAR EXTERNAL LAB UA pH - External 6.0 EXTERNAL LAB Specific [place], Urine - External 1.017 EXTERNAL LAB UA Protein - External 1+ EXTERNAL LAB Urine VOIDED URINE SPECIMEN / Unknown 01/12/2023 7:51 AM AIRFIELD DEFENCE GUARD Narrative EXTERNAL LAB - 01/13/2023 8:21 PM CDT Verified by Monie Siddiqui on 01/13/2023. us Cathleen Gallegos MD URINE ORDERABLES Final Result EXTERNAL LAB * Everolimus Level (12/18/2022 6:32 AM AIRFIELD DEFENCE GUARD) Everolimus Level - External 5.9 EXTERNAL LAB 12/18/2022 6:32 AM AIRFIELD DEFENCE GUARD Narrative EXTERNAL LAB - 12/23/2022 7:16 AM AIRFIELD DEFENCE GUARD Verified by Monie Siddiqui on 12/23/2022. Edwin Del Toro MD CHEMISTRY ORDERABLES Final Result EXTERNAL LAB * BK Virus Quant Viral Load, Urine (12/18/2022 6:32 AM AIRFIELD DEFENCE GUARD) BK Quantitation Urine - External 1,380 EXTERNAL LAB 12/18/2022 6:32 AM AIRFIELD DEFENCE GUARD Narrative EXTERNAL LAB - 12/23/2022 7:16 AM AIRFIELD DEFENCE GUARD Verified by Monie Siddiqui on 12/23/2022. Edwin Del Toro MD URINE ORDERABLES Final Res ult Performing Organization Address [facility]/ZIP Co de Phone Number EXTERNAL LAB * Mycophenolic Acid (12/18/2022 6:32 AM AIRFIELD DEFENCE GUARD) Mycophenolic Acid - External 1.9 1.0 - 3.5 ug/mL EXTERNAL LAB 12/18/2022 6:32 AM AIRFIELD DEFENCE GUARD Narrative EXTERNAL LAB - 12/23/2022 6:03 AM AIRFIELD DEFENCE GUARD Verified by Monie Siddiqui on 12/23/2022. Edwin Del Toro MD CHEMISTRY ORDERABLES Final Result EXTERNAL LAB documented in this encounter Visit Diagnoses Diagnosis Kidney transplant 01/02/2008 documented in this encounter Care Teams Attending Ambulatory Care Relationship Specialty Start Date End Date Juan Laguerre MD [address] [place] [address] PCP - General Family Medicine 01/02/18 Aubrey Crabtree III, MD [address] [place] [address] Hematology and Medical Oncology 10/01/18 Jaki Nieves, PhD [address] [facility] [address] [place] [address] Genetic Counseling 11/27/18 documented as of this encounter
--- OUTSIDE RECORDS SUMMARY | 2025-08-09 09:31 | XMS_ITS | Encounter Summary ---
Author Organization [facility] Address [address] [place] [address] Care Team Providers Care Plater Production Name Role Phone Juan Laguerre MD Primary Care Provider [phone] Bro AWAN MD, Aubrey Lane Unavailable [phone] Jaki Nieves PhD Unavailable [phone] Source Comments In the event that this is information that is protected by federal Confidentiality of Substance User Disorder Patient Records, 42 CFR Part 2 prohibits the unauthorized disclosure of these records.[facility] Encounter Details Date Type Department Care Team (Late Contact Info) Description 01/27/2024 Orders Only NM Transplant Surgery [address] [facility], 19th Floor [address] [place] [address] Delaney Gallegos Social History Tobacco Use Types Packs/Day Years [...] [address], [address] [place] [address] Apt confirmed-EH documented as of this encounter Procedures Procedure Name Priority Date/Time Associated Diagnosis Comments OP URINALYSIS WITH MICROSCOPIC, REFLEX TO CULTURE Routine 01/21/2024 9:21 AM CDT HEMOGLOBIN A1C Routine 01/21/2024 9:21 AM CDT LIPID PANEL (AMA) W/LDL CALC Routine 01/21/2024 9:21 AM CDT documented in this encounter Results * (ABNORMAL) Urinalysis w/Microscopic, reflex culture (01/21/2024 9:21 AM CDT) UA Color - External DARK YELLOW YELLOW EXTERNAL LAB UA Appearance - External CLEAR CLEAR EXTERNAL LAB Specific [place], Urine - External 1.025 1.001 - 1.035 EXTERNAL LAB UA pH - External 6.0 5.0 - 8.0 EXTERNAL LAB UA Glucose - External TRACE(H) NEGATIVE EXTERNAL LAB UA Bilirubin - External NEGATIVE NEGATIVE EXTERNAL LAB UA Ketones - External NEGATIVE NEGATIVE EXTERNAL LAB UA Blood - External NEGATIVE NEGATIVE EXTERNAL LAB UA Protein - External 2+ NEGATIVE EXTERNAL LAB UA Nitrate - External POSITIVE(H) NEGATIVE EXTERNAL LAB UA Leukocyte Esterase - External TRACE(H) NEGATIVE EXTERNAL LAB UA WBC - External 0-5 <=5 /HPF EXTERNAL LAB UA RBC - External NONE SEEN /HPF EXTERNAL LAB UA Squamous Epithelial Cells - External CELLS NONE SEEN /HPF EXTERNAL LAB UA Bacteria - External FEW NONE SEEN /HPF EXTERNAL LAB UA Hyaline Cast - External NONE NONE SEEN /LPF EXTERNAL LAB 01/21/2024 9:21 AM CDT Narrative EXTERNAL LAB - 02/10/2024 3:33 PM CDT Verified by Elzbieta Sam on 02/10/2024. us Noe Keyes MD URINE ORDERABLES Final Resul t EXTERNAL LAB * (ABNORMAL) Hemoglobin A1c (01/21/2024 9:21 AM CDT) Hemoglobin A1C - External 9.9(H) <5.7 % EXTERNAL LAB 01/21/2024 9:21 AM CDT Narrative EXTERNAL LAB - 02/10/2024 3:33 PM CDT Verified by Elzbieta Sam on 02/10/2024. us Noe Keyes MD CHEMISTRY ORDERABLES Final R esult EXTERNAL LAB * (ABNORMAL) Lipid Panel(AMA) w/LDL Calculated (01/21/2024 9:21 AM CDT) Total Cholesterol - External 305(H) <200 mg/dL EXTERNAL LAB HDL Cholesterol - External 35(L) >=40 mg/dL EXTERNAL LAB Triglycerides - External 833(H) <150 mg/dL EXTERNAL LAB 01/21/2024 9:21 AM CDT Narrative EXTERNAL LAB - 02/10/2024 3:33 PM CDT Verified by Elzbieta Sam on 02/10/2024. us Noe Keyes MD CHEMISTRY ORDERABLES Final R esult EXTERNAL LAB documented in this encounter Visit Diagnoses Diagnosis Kidney replaced by transplant documented in this encounter Care Teams Plater Production Relationship Specialty Start Date End Date Juan Laguerre MD [address] [facility] [address] [place] [address] PCP - General Family Medicine 01/02/18 Aubrey Crabtree III, MD [address] [facility] [address] [place] [address] Hematology and Medical Oncology 10/01/18 Jaki Nieves, PhD [address] [facility] [address] [place] [address] Genetic Counseling 11/27/18 documented as of this encounter
--- OUTSIDE RECORDS SUMMARY | 2025-08-09 09:31 | XMS_ITS | Encounter Summary ---
Author Organization [facility] Address [address] [place] [address] Care Team Providers Care Aircraft Inspection Record Clerk Name Role Phone Juan Laguerre MD Primary Care Provider [phone] Bro AWAN MD, Aubrey Lane Unavailable [phone] Jaki Nieves PhD Unavailable [phone] Source Comments In the event that this is information that is protected by federal Confidentiality of Substance User Disorder Patient Records, 42 CFR Part 2 prohibits the unauthorized disclosure of these records.[facility] Reason for Visit * Reason Comments Medications Refill Encounter Details Date Type Department Care Team (Late st Contact Info) Description 03/04/2019 Refill NM Transplant Surgery [address] [facility], 19th Floor [address] [place] [address] Edwin Del Toro MD [address] [facility] [address], [place] [address] Medications Refill Social History Tobacco Use Types Packs/Day Years Used Date Smoking Tobacco: Former Cigarettes 2 30 1 2 - 2011 Smokeless Tobacco: Never Alcohol Use [...] Office Visit NM Transplant Surgery [address] [facility], 19th Floor [address] [place] [address] Apt confirmed-EH documented as of this encounter Visit Diagnoses Not on filedocumented in this encounter Additional Health Concerns Infection Onset Date Last Indicated Resolved Time COVID-19 Comment:Tested + on 09/0109/01/2020 09/05/2020 09/25/2020 12: 31 AM 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 [address] [place] [address] PCP - General Family Medicine 01/02/18 Aubrey Crabtree III, MD [address] [facility] [address] [place] [address] Hematology and Medical Oncology 10/01/18 Jaki Nieves, PhD [address] [facility] [address] [place] [address] Genetic Counseling 11/27/18 documented as of this encounter
--- OUTSIDE RECORDS SUMMARY | 2025-08-09 09:31 | XMS_ITS | Encounter Summary ---
Author Organization [facility] Address [address] [place] [address] Care Team Providers Care Jigmaker Name Role Phone Juan Laguerre MD Primary Care Provider [phone] Bro AWAN MD, Aubrey Lane Unavailable [phone] Jaki Nieves PhD Unavailable [phone] Source Comments In the event that this is information that is protected by federal Confidentiality of Substance User Disorder Patient Records, 42 CFR Part 2 prohibits the unauthorized disclosure of these records.[facility] Encounter Details Date Type Department Care Team (Late st Contact Info) Description 01/21/2023 Orders Only NM Transplant Surgery [address] [facility], 19th Floor [address] [place], [place] [address] Cathleen Gallegos MD [address] [facility] [address], [place] [address] Social History Tobacco Use Types Packs/Day Years [...] Office Visit NM Transplant Surgery [address] [facility], 19th [address] [place] [address] Apt confirmed-EH documented as of this encounter Visit Diagnoses Diagnosis Kidney transplant 01/02/2008 documented in this encounter Care Teams Jigmaker Relationship Specialty Start Date End Date Juan Laguerre MD [address] [facility] [address] [place], [place] [address] PCP - General Family Medicine 01/02/18 Aubrey Crabtree III, MD [address] [facility] [address] [place] [address] Hematology and Medical Oncology 10/01/18 Jaki Nieves, PhD [address] [facility] [address] [place], [place] [id number] Genetic Counseling 11/27/18 documented as of this encounter
--- OUTSIDE RECORDS SUMMARY | 2025-08-09 09:31 | XMS_ITS | Encounter Summary ---
Author Organization [facility] Address [address] [place] [address] Care Team Providers Care Real Estate Instructor Name Role Phone Juan Laguerre MD Primary Care Provider [phone] Bro AAWN MD, Aubrey Lane Unavailable [phone] Jaki Nieves PhD Unavailable [phone] Source Comments In the event that this is information that is protected by federal Confidentiality of Substance User Disorder Patient Records, 42 CFR Part 2 prohibits the unauthorized disclosure of these records.[facility] Encounter Details Date Type Department Care Team (Late st Contact Info) Description 11/10/2018 Orders Only NM Transplant Surgery [address] [facility], 19th Floor [address] [place], [place] [address] Noe Keyes MD [address] [facility] [address], [place] [address] Social History Tobacco Use Types Packs/Day Years Used Date Smoking Tobacco: Former Cigarettes 2 30 - 2011 Smokeless Tobacco: Never Alcohol Use [...] Office Visit NM Transplant Surgery [address] [facility], 19th Floor [address] [place] [address] Apt confirmed-EH documented as of this encounter Procedures Procedure Name Priority Date/Time Associated Diagnosis Comments BILIRUBIN DIRECT Routine 11/14/2018 11:0 0 AM LICENSED RETAIL SUPERVISOR BILIRUBIN TOTAL Routine 11/14/2018 11:00 AM LICENSED RETAIL SUPERVISOR EVEROLIMUS LEVEL Routine 11/14/2018 6:15 AM LICENSED RETAIL SUPERVISOR BK VIRUS DNA QUANT PCR, BLOOD Routine 11/14/2018 6:15 AM LICENSED RETAIL SUPERVISOR CBC AND DIFFERENTIAL Routine 11/14/2018 6:15 AM LICENSED RETAIL SUPERVISOR BK VIRUS QUANT VIRAL LOAD, URINE Routine 11/14/2018 6:00 AM LICENSED RETAIL SUPERVISOR PROTEIN/CREAT RATIO, RANDOM URINE Routine 11/14/2018 6:00 AM LICENSED RETAIL SUPERVISOR URINALYSIS WITH MICROSCOPIC Routine 11/14/2018 6:00 AM LICENSED RETAIL SUPERVISOR HEMOGLOBIN A1C Routine 11/14/2018 6:00 AM LICENSED RETAIL SUPERVISOR documented in this encounter Results * Bilirubin, Total (11/14/2018 11:00 AM LICENSED RETAIL SUPERVISOR) Total Bilirubin - External 0.3 mg/dL EXTERNAL LAB 11/14/2018 11:0 0 AM LICENSED RETAIL SUPERVISOR Narrative EXTERNAL LAB - 11/15/2018 10:07 AM LICENSED RETAIL SUPERVISOR Verified by Monie Siddiqui on 11/15/2018. us Noe Keyes MD CHEMISTRY ORDERABLES Final R esult EXTERNAL LAB * Bilirubin, Direct (11/14/2018 11:00 AM LICENSED RETAIL SUPERVISOR) Pathologist [facility] Direct Bilirubin - External <0.1 0.0 - 0.3 mg/dL EXTERNAL LAB 11/14/2018 11:0 0 AM LICENSED RETAIL SUPERVISOR Narrative EXTERNAL LAB - 11/15/2018 10:07 AM LICENSED RETAIL SUPERVISOR Verified by Monie Siddiqui on 11/15/2018. Noe Keyes MD CHEMISTRY ORDERABLES Final R esult Performing Organization Address City/[facility] Co de Phone Number EXTERNAL LAB * BK Virus DNA Quant PCR, Blood (11/14/2018 6:15 AM LICENSED RETAIL SUPERVISOR) Pathologist [facility] BK Virus DNA, Qn PCR - External 3,570 EXTERNAL LAB 11/14/2018 6:15 AM LICENSED RETAIL SUPERVISOR Narrative EXTERNAL LAB - 12/04/2018 1:05 PM LICENSED RETAIL SUPERVISOR Verified by Monie Siddiqui on 12/04/2018. Noe Keyes MD IMMUNOLOGY ORDERABLES Final Result Performing Organization Address [facility] de Phone Number EXTERNAL LAB * Everolimus Level (11/14/2018 6:15 AM LICENSED RETAIL SUPERVISOR) Pathologist [facility] Everolimus Level - External <1.0 EXTERNAL LAB 11/14/2018 6:15 AM LICENSED RETAIL SUPERVISOR Narrative EXTERNAL LAB - 11/17/2018 1:40 PM LICENSED RETAIL SUPERVISOR Verified by Galina Raaz on 11/17/2018. Edwin Del Toro MD CHEMISTRY ORDERABLES Final Result Performing Organization Address [facility] de Phone Number EXTERNAL LAB * (ABNORMAL) CBC with Differential (11/14/2018 6:15 AM LICENSED RETAIL SUPERVISOR) Pathologist [facility] Lymph Absolute - External 7.22 EXTERNAL LAB [place] Absolute - External 2.48(H) EXTERNAL LAB Basophil Absolute - External 0.86(H) EXTERNAL LAB Lymphocytes - External 23 % EXTERNAL LAB Basophils - External 2(H) % EXTERNAL LAB White Blood Cells - External 10.78 EXTERNAL LAB Hemoglobin - External 10.5(L) EXTERNAL LAB Hematocrit - External 34.6(L) % EXTERNAL LAB MCV - External 75.9(L) EXTERNAL LAB MCHC - External 30.3(L) EXTERNAL LAB Platelets - External 735 10(3)/mcL EXTERNAL LAB RDW - External 22.1 EXTERNAL LAB MCH - External 23 EXTERNAL LAB Neutrophils - External 67 EXTERNAL LAB Monocytes - External 8 EXTERNAL LAB Red Blood Cells - External 4.56 EXTERNAL LAB 11/14/2018 6:15 AM LICENSED RETAIL SUPERVISOR Narrative EXTERNAL LAB - 11/15/2018 8:09 AM LICENSED RETAIL SUPERVISOR Verified by Monie Siddiqui on 11/15/2018. oNe Keyes MD HEMATOLOGY ORDERABLES Final Result EXTERNAL LAB * BK Virus Quant Viral Load, Urine (11/14/2018 6:00 AM LICENSED RETAIL SUPERVISOR) BK Quantitation Urine - External 638,000 EXTERNAL LAB 11/14/2018 6:00 AM LICENSED RETAIL SUPERVISOR Narrative EXTERNAL LAB - 12/02/2018 11:48 AM LICENSED RETAIL SUPERVISOR Verified by Monie Siddiqui on 12/02/2018. Noe Keyes MD URINE ORDERABLES Final Resul t EXTERNAL LAB * Hemoglobin A1c (11/14/2018 6:00 AM LICENSED RETAIL SUPERVISOR) Hemoglobin A1C - External 10.2 EXTERNAL LAB 11/14/2018 6:00 AM LICENSED RETAIL SUPERVISOR Narrative EXTERNAL LAB - 11/15/2018 8:09 AM LICENSED RETAIL SUPERVISOR Verified by Monie Siddiqui on 11/15/2018. Noe Keyes MD CHEMISTRY ORDERABLES Final R esult EXTERNAL LAB * Protein /Creatinine Ratio, Urine (11/14/2018 6:00 AM LICENSED RETAIL SUPERVISOR) Urine Creatinine, Random - External 114 EXTERNAL LAB Protein, Urine - External 42.7 EXTERNAL LAB Prot/Creat Ratio - External 0.37 EXTERNAL LAB 11/14/2018 6:00 AM LICENSED RETAIL SUPERVISOR Narrative EXTERNAL LAB - 11/15/2018 8:09 AM LICENSED RETAIL SUPERVISOR Verified by Monie Siddiqui on 11/15/2018. Noe Keyes MD URINE ORDERABLES Final Resul t Performing Organization Address [facility] de Phone Number EXTERNAL LAB * Urinalysis with Microscopic (11/14/2018 6:00 AM LICENSED RETAIL SUPERVISOR) Specific [place], Urine - External 1.012 EXTERNAL LAB UA pH - External 6.0 EXTERNAL LAB UA Nitrate - External Negative Negative EXTERNAL LAB UA Glucose - External Negative Negative EXTERNAL LAB UA Ketones - External Negative Negative mg/dL EXTERNAL LAB UA Color - External Yellow EXTERNAL LAB UA Appearance - External Clear Clear EXTERNAL LAB UA RBC - External 0-5 EXTERNAL LAB UA Hyaline Cast - External Occasional EXTERNAL LAB UA Leukocyte Esterase - External TRACE EXTERNAL LAB UA Blood - External NEG EXTERNAL LAB UA Bilirubin - External NEG EXTERNAL LAB UA Urobilinogen - External <2.0 EXTERNAL LAB UA WBC - External 11-20 EXTERNAL LAB UA Protein - External TRACE EXTERNAL LAB 11/14/2018 6:00 AM LICENSED RETAIL SUPERVISOR Narrative EXTERNAL LAB - 11/15/2018 8:09 AM LICENSED RETAIL SUPERVISOR Verified by Monie Siddiqui on 11/15/2018. Noe Keyes MD URINE ORDERABLES Final Resul t Performing Organization Address [facility] de Phone Number EXTERNAL LAB documented in this encounter Visit Diagnoses Diagnosis Kidney transplanted Kidney replaced by transplant documented in this encounter Additional Health Concerns Infection Onset Date Last Indicated Resolved Time COVID-19 Comment:Tested + on 09/0109/01/2020 09/05/2020 09/25/2020 12: 31 AM LICENSED RETAIL SUPERVISOR documented as of this encounter Care Teams Real Estate Instructor Relationship Specialty Start Date End Date Juan Laguerre MD [address] [facility] [address] [place] [address] PCP - General Family Medicine 01/02/18 Aubrey Crabtree III, MD [address] [facility] [address] [place] [address] Hematology and Medical Oncology 10/01/18 Jaki Nieves, PhD [address] [facility] [address] [place] [address] Genetic Counseling 11/27/18 documented as of this encounter
--- OUTSIDE RECORDS SUMMARY | 2025-08-09 09:31 | XMS_ITS | Encounter Summary ---
Author Organization [facility] Address [address] [place] [address] Care Team Providers Care Building Mover Name Role Phone Juan Laguerre MD Primary Care Provider [phone] Bro AWAN MD, Aubrey Lane Unavailable [phone] Jaki Nieves PhD Unavailable [phone] Source Comments In the event that this is information that is protected by federal Confidentiality of Substance User Disorder Patient Records, 42 CFR Part 2 prohibits the unauthorized disclosure of these records.[facility] Encounter Details Date Type Department Care Team (Late Contact Info) Description 07/13/2024 Orders Only [place] Transplant Surgery [address] [facility], 19th [address] [place] [address] Delaney Gallegos Social History Tobacco Use Types [...] Office Visit [place] Transplant Surgery [address] [facility], 19[address] [place], [place] [address] Apt confirmed-EH documented as of this encounter Visit Diagnoses Diagnosis Kidney replaced by transplant documented in this encounter Care Teams Building Mover Relationship Specialty Start Date End Date Juan Laguerre MD [address] [facility] [address] [place], [place] [phone] PCP - General Family Medicine 01/02/18 Aubrey Crabtree III, MD [address] [facility] [address] [place], [place] [phone] Hematology and Medical Oncology 10/01/18 Jaki Nieves, PhD [address] [facility] [address] [place], [place] [address] Genetic Counseling 11/27/18 documented as of this encounter
--- OUTSIDE RECORDS SUMMARY | 2025-08-09 09:31 | XMS_ITS | Encounter Summary ---
Author Organization [facility] Address [address] [place] [address] Care Team Providers Care Can Carrier Name Role Phone Juan Laguerre MD Primary Care Provider [phone] Bro AWAN MD, Aubrey Lane Unavailable [phone] Jaki Nieves PhD Unavailable [phone] Source Comments In the event that this is information that is protected by federal Confidentiality of Substance User Disorder Patient Records, 42 CFR Part 2 prohibits the unauthorized disclosure of these records.[facility] Encounter Details Date Type Department Care Team (Late st Contact Info) Description 08/10/2024 Orders Only [place] Transplant Surgery [address] [facility], 19th [address] [place], [place] [address] Cathleen Gallegos MD [address] [facility] [address], [place] [address] Social History Tobacco Use Types Packs/Day Years [...] Office Visit [place] Transplant Surgery [address] [facility], 19th [address] [place], [place] [address] Apt confirmed-EH documented as of this encounter Visit Diagnoses Diagnosis Kidney replaced by transplant Protein screening Special screening for other specified conditions documented in this encounter Care Teams Can Carrier Relationship Specialty Start Date End Date Juan Laguerre MD [address] [facility] [address] [place] [address] PCP - General Family Medicine 01/02/18 Aubrey Crabtree III, MD [address] [facility] [address] [place], [place] [phone] Hematology and Medical Oncology 10/01/18 Jaki Nieves, PhD [address] [facility] [address] [place], [place] [address] Genetic Counseling 11/27/18 documented as of this encounter
--- OUTSIDE RECORDS SUMMARY | 2025-08-09 09:31 | XMS_ITS | Encounter Summary ---
Author Organization [facility] Address [address] [place] [address] Care Team Providers Care Steam Fitter Supervisor Maintenance Name Role Phone Juan Laguerre MD Primary Care Provider [phone] Bro AWAN MD, Aubrey Lane Unavailable [phone] Jaki Nieves PhD Unavailable [phone] Source Comments In the event that this is information that is protected by federal Confidentiality of Substance User Disorder Patient Records, 42 CFR Part 2 prohibits the unauthorized disclosure of these records.[facility] Reason for Visit * Reason Onset Date Comments unos 02/01/2019 kidney trf compl eye Encounter Details Date Type Department Care Team (Late st Contact Info) Description 02/01/2019 Clinical Update [place] Transplant Surgery [address] [facility], 19th [address] [place] [address] Beth Yoon (kidney trf compleye) Social History Tobacco Use Types Packs/Day Years [...] Office Visit [place] Transplant Surgery [address] [facility], [address]th [address] [place] [address] Apt confirmed-EH documented as of this encounter Visit Diagnoses Not on filedocumented in this encounter Additional Health Concerns Infection Onset Date Last Indicated Resolved Time COVID-19 Comment:Tested + on 09/0109/01/2020 09/05/2020 09/25/2020 12: 31 AM 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
--- OUTSIDE RECORDS SUMMARY | 2025-08-09 09:31 | XMS_ITS | Encounter Summary ---
Author Organization [facility] Address [address] [place] [address] Care Team Providers Care Waterworks Operator Name Role Phone Juan Laguerre MD Primary Care Provider [phone] Bro AWAN MD, Aubrey Lane Unavailable [phone] Jaki Nieves PhD Unavailable [phone] Source Comments In the event that this is information that is protected by federal Confidentiality of Substance User Disorder Patient Records, 42 CFR Part 2 prohibits the unauthorized disclosure of these records.[facility] Encounter Details Date Type Department Care Team (Late Contact Info) Description 12/22/2018 Procedure Pass [place] Cardiology [address], [address] [place] [address] Social History Tobacco Use Types Packs/Day Years [...] Upcoming Encounters Date Type Department Care Team ([facility] Contact Info) Description 07/15/2026 1:00 PM CDT Office Visit [place] Transplant Surgery [address], [address] [place] [address] Apt confirmed-EH documented as of this encounter Visit Diagnoses Not on filedocumented in this encounter Additional Health Concerns Infection Onset Date Last Indicated Resolved Time COVID-19 Comment:Tested + on 09/0109/01/2020 09/05/2020 09/25/2020 12: 31 AM 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
--- OUTSIDE RECORDS SUMMARY | 2025-08-09 09:31 | XMS_ITS | Encounter Summary ---
Author Organization [facility] Address [address] [place] [address] Care Team Providers Care Senior Care Assistant Name Role Phone Juan Laguerre MD Primary Care Provider [phone] Bro AWAN MD, Aubrey Lane Unavailable [phone] Jaki Nieves PhD Unavailable [phone] Source Comments In the event that this is information that is protected by federal Confidentiality of Substance User Disorder Patient Records, 42 CFR Part 2 prohibits the unauthorized disclosure of these records.[facility] Encounter Details Date Type Department Care Team (Late Contact Info) Description 03/02/2019 Orders Only NM Transplant Surgery [address] [facility], 19th [address] [place] [address] Cara Cook RN Social History Tobacco Use Types Packs/Day Years Used Date Smoking Tobacco: Former Cigarettes 30 - 2011 Smokeless Tobacco: Never Alcohol [...] [address] [place] [address] Apt confirmed-EH documented as of this encounter Visit Diagnoses Diagnosis 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) Liver replaced by transplant Kidney replaced by transplant documented in this encounter Additional Health Concerns Infection Onset Date Last Indicated Resolved Time COVID-19 Comment:Tested + on 09/0109/01/2020 09/05/2020 09/25/2020 12: 31 AM DIE SINKER documented as of this encounter Care Teams Senior Care Assistant Relationship Specialty Start Date End Date Juan Laguerre MD [address] [facility] [address] [place], [place] [phone] PCP - General Family Medicine 01/02/18 Aubrey Crabtree III, MD [address] [facility] [address] [place] [address] Hematology and Medical Oncology 10/01/18 Jaki Nieves, PhD [address] [place] [address] Genetic Counseling 11/27/18 documented as of this encounter
--- OUTSIDE RECORDS SUMMARY | 2025-08-09 09:31 | XMS_ITS | Encounter Summary ---
Author Organization [facility] Address [address] [place] [address] Care Team Providers Care Tag Maker Name Role Phone Juan Laguerre MD Primary Care Provider [phone] Bro AWAN MD, Aubrey Lane Unavailable [phone] Jaki Nieves PhD Unavailable [phone] Source Comments In the event that this is information that is protected by federal Confidentiality of Substance User Disorder Patient Records, 42 CFR Part 2 prohibits the unauthorized disclosure of these records.[facility] Encounter Details Date Type Department Care Team (Late Contact Info) Description 12/24/2018 Procedure Pass [place] Cardiology [address], [address] [place] [address] Social History Tobacco Use Types Packs/Day Years [...] Type Department Care Team ([facility] Contact Info) Description 07/15/2026 1:00 PM CDT Office Visit [place] Transplant Surgery [address], [address] [place] [address] Apt confirmed-EH documented as of this encounter Visit Diagnoses Not on filedocumented in this encounter Additional Health Concerns Infection Onset Date Last Indicated Resolved Time COVID-19 Comment:Tested + on 09/0109/01/2020 09/05/2020 09/25/2020 12: 31 AM RN PROCEDURE documented as of this encounter Care Teams Tag Maker Relationship Specialty Start Date End Date Juan Laguerre MD [address] [phone] PCP - General Family Medicine 01/02/18 Aubrey Crabtree III, MD [address] [address] Hematology and Medical Oncology 10/01/18 Jaki Nieves, PhD [address] [facility] [address] [place] [address] Genetic Counseling 11/27/18 documented as of this encounter
--- OUTSIDE RECORDS SUMMARY | 2025-08-09 09:31 | XMS_ITS | Encounter Summary ---
Author Organization [facility] Address [address] [place] [address] Care Team Providers Care Case Advocate Name Role Phone Juan Laguerre MD Primary Care Provider [phone] Bro AWAN MD, Aubrey Lane Unavailable [phone] Jaki Nieves PhD Unavailable [phone] Source Comments In the event that this is information that is protected by federal Confidentiality of Substance User Disorder Patient Records, 42 CFR Part 2 prohibits the unauthorized disclosure of these records.[facility] Encounter Details Date Type Department Care Team (Late st Contact Info) Description 12/31/2022 Orders Only NM Transplant Surgery [address] [facility], [address] [place], [place] [address] Cathleen Gallegos MD [address] [facility] [address], [place] [address] Social History Tobacco Use Types Packs/Day Years [...] Office Visit [place] Transplant Surgery [address] [facility], [address] [place] [address] Apt confirmed-EH documented as of this encounter Procedures Procedure Name Priority Date/Time Associated Diagnosis Comments LDL CHOLESTEROL,DIRECT MEASURE Routine 03/06/2023 6:49 AM CDT Kidney transplant 01/02/2008 Lipid disorder HEPATIC FUNCTION PANEL Routine 03/06/2023 6:49 AM CDT Kidney transplant 01/02/2008 BK VIRUS QUANT VIRAL LOAD, URINE Routine 01/12/2023 7:51 AM CLERK TELEVISION PRODUCTION BK VIRUS DNA QUANT PCR, BLOOD Routine 01/12/2023 7:51 AM CLERK TELEVISION PRODUCTION CBC AND DIFFERENTIAL Routine 01/12/2023 7:51 AM CLERK TELEVISION PRODUCTION LDL CHOLESTEROL,DIRECT MEASURE Routine 01/12/2023 7:51 AM CLERK TELEVISION PRODUCTION HEMOGLOBIN A1C Routine 01/12/2023 7:51 AM CLERK TELEVISION PRODUCTION Type II diabetes mellitus with complication ([facility]-HCC) BILIRUBIN DIRECT Routine 01/12/2023 7:51 AM CLERK TELEVISION PRODUCTION LIPID PANEL (AMA) W/LDL CALC Routine 01/12/2023 7:51 AM CLERK TELEVISION PRODUCTION Kidney transplant 01/02/2008 Lipid disorder COMPREHENSIVE METABOLIC PANEL Routine 01/12/2023 7:51 AM CLERK TELEVISION PRODUCTION documented in this encounter Results * LDL Cholesterol, Direct (03/06/2023 6:49 AM CDT) Cholesterol LDL Direct - External 137 75 - 193 mg/dL EXTERNAL LAB Blood VEIN SPECIMEN / Unknown 03/06/2023 6:49 AM CDT Narrative EXTERNAL LAB - 03/07/2023 9:23 AM CDT Verified by Koki Burks on 03/07/2023. Cathleen Gallegos MD CHEMISTRY ORDERABLES Final Resul t Performing Organization Address [facility] de Phone Number EXTERNAL LAB * (ABNORMAL) Hepatic function panel (03/06/2023 6:49 AM CDT) Pathologist [facility] Alkaline Phos - External 82 39 - 117 u/L EXTERNAL LAB AST (SGOT) - External 26 0 - 37 u/L EXTERNAL LAB ALT (SGPT) - External 26 12 - 55 u/L EXTERNAL LAB Direct Bilirubin - External 0.1 0.0 - 0.3 mg/dL EXTERNAL LAB Total Bilirubin - External 0.4 0.0 - 1.0 mg/dL EXTERNAL LAB Total Protein - External 6.4 6.0 - 8.2 G/DL EXTERNAL LAB Albumin - External 3.0(L) 3.4 - 4.8 gm/dl EXTERNAL LAB Blood VEIN SPECIMEN / Unknown 03/06/2023 6:49 AM CDT Narrative EXTERNAL LAB - 03/06/2023 2:41 PM CDT Verified by Koki Burks on 03/06/2023. Cathleen Gallegos MD CHEMISTRY ORDERABLES Final Resul t Performing Organization Address [facility] de Phone Number EXTERNAL LAB * BK Virus Quant Viral Load, Urine (01/12/2023 7:51 AM CLERK TELEVISION PRODUCTION) Pathologist [facility] BK Quantitation Urine - External 1,023,321 EXTERNAL LAB 01/12/2023 7:51 AM CLERK TELEVISION PRODUCTION Narrative EXTERNAL LAB - 01/16/2023 7:55 AM CDT Verified by Monie Siddiqui on 01/16/2023. Edwin Del Toro MD URINE ORDERABLES Final Res ult Performing Organization Address [facility] de Phone Number EXTERNAL LAB * BK Virus DNA Quant PCR, Blood (01/12/2023 7:51 AM CLERK TELEVISION PRODUCTION) BK Virus DNA, Qn PCR - External 670 EXTERNAL LAB 01/12/2023 7:51 AM CLERK TELEVISION PRODUCTION Narrative EXTERNAL LAB - 01/16/2023 7:55 AM CDT Verified by Monie Siddiqui on 01/16/2023. Edwin Del Toro MD IMMUNOLOGY ORDERABLES Joana l Result Performing Organization Address City/[facility]/ZIP Co de Phone Number EXTERNAL LAB * LDL Cholesterol, Direct (01/12/2023 7:51 AM CLERK TELEVISION PRODUCTION) Cholesterol LDL Direct - External 138 EXTERNAL LAB 01/12/2023 7:51 AM CLERK TELEVISION PRODUCTION Narrative EXTERNAL LAB - 01/13/2023 8:41 PM CDT Verified by Monie Siddiqui on 01/13/2023. Edwin Del Toro MD CHEMISTRY ORDERABLES Final Result Performing Organization Address [facility] de Phone Number EXTERNAL LAB * Bilirubin, Direct (01/12/2023 7:51 AM CLERK TELEVISION PRODUCTION) Direct Bilirubin - External <0.1 0.0 - 0.3 mg/dL EXTERNAL LAB 01/12/2023 7:51 AM CLERK TELEVISION PRODUCTION Narrative EXTERNAL LAB - 01/13/2023 8:21 PM CDT Verified by Monie Siddiqui on 01/13/2023. Cathleen Gallegos MD CHEMISTRY ORDERABLES Final Resul t Performing Organization Address City/[facility] Co de Phone Number EXTERNAL LAB * (ABNORMAL) Comprehensive Metabolic Panel (01/12/2023 7:51 AM CLERK TELEVISION PRODUCTION) Sodium - External 133 133 - 145 mmol/L EXTERNAL LAB Potassium - External 4.8 3.5 - 5.1 mmol/L EXTERNAL LAB Chloride - External 103 96 - 108 mmol/L EXTERNAL LAB CO2 - External 26 21 - 32 mmol/L EXTERNAL LAB Anion Gap - External 8.8(L) 10.0 - 20.0 mmol/L EXTERNAL LAB Urea Nitrogen - External 28(H) 6 - 19 mg/dL EXTERNAL LAB Creatinine - External 1.50(H) 0.50 - 1.30 mG/dL EXTERNAL LAB GFR(Others) - External 52 EXTERNAL LAB Glucose - External 176(H) 80 - 115 mg/dL EXTERNAL LAB Calcium - External 8.3(L) 8.8 - 10.0 mg/dL EXTERNAL LAB Alkaline Phos - External 84 EXTERNAL LAB AST (SGOT) - External 22 EXTERNAL LAB ALT (SGPT) - External 28 EXTERNAL LAB Total Bilirubin - External 0.5 EXTERNAL LAB Albumin - External 3.2/3.1 EXTERNAL LAB Total Protein - External 6.7 EXTERNAL LAB 01/12/2023 7:51 AM CLERK TELEVISION PRODUCTION Narrative EXTERNAL LAB - 01/13/2023 8:21 PM CDT Verified by Monie Siddiqui on 01/13/2023. us Cathleen Gallegos MD CHEMISTRY ORDERABLES Final Resul t EXTERNAL LAB * (ABNORMAL) CBC with Differential (01/12/2023 7:51 AM CLERK TELEVISION PRODUCTION) Hemoglobin - External 16.7 13.1 - 17.2 gm/dl EXTERNAL LAB Hematocrit - External 55.3(H) 39.8 - 52.2 % EXTERNAL LAB Red Blood Cells - External 6.99(H) 4.30 - 5.70 x10^6 EXTERNAL LAB MCV - External 79.1(L) 80.0 - 100.0 FL EXTERNAL LAB MCH - External 23.9(L) 26.5 - 33.9 pg EXTERNAL LAB MCHC - External 30.2(L) 31.5 - 36.0 % EXTERNAL LAB RDW - External 21.7(H) 11.8 - 15.5 % EXTERNAL LAB White Blood Cells - External 11.3(H) 3.9 - 11.0 x10^3 EXTERNAL LAB Neutrophils Abs (cells/uL) - External 5.80 1.40 - 7.30 cells/uL EXTERNAL LAB Basophil Absolute - External 0.15(H) 0.00 - 0.10 x10^3 EXTERNAL LAB - External 0.23 0.00 - 0.30 x10^3 EXTERNAL LAB [place] Absolute - External 1.25(H) 0.10 - 0.80 x10^3 EXTERNAL LAB Lymph Absolute - External 3.86(H) 1.30 - 2.90 x10^3 EXTERNAL LAB Neutrophils - External 51.2 % EXTERNAL LAB Eosinophils - External 2.0 % EXTERNAL LAB Basophils - External 1.3 % EXTERNAL LAB Monocytes - External 11 % EXTERNAL LAB Lymphocytes - External 34.1 % EXTERNAL LAB Platelets - External 149 140 - 445 x10^3 EXTERNAL LAB 01/12/2023 7:51 AM CLERK TELEVISION PRODUCTION Narrative EXTERNAL LAB - 01/13/2023 8:21 PM CDT Verified by Monie Siddiqui on 01/13/2023. us Cathleen Gallegos MD HEMATOLOGY ORDERABLES Final Resu lt EXTERNAL LAB * (ABNORMAL) Hemoglobin A1c (01/12/2023 7:51 AM CLERK TELEVISION PRODUCTION) Hemoglobin A1C - External 8.4(H) 3.8 - 5.6 % EXTERNAL LAB Blood VEIN SPECIMEN / Unknown 01/12/2023 7:51 AM CLERK TELEVISION PRODUCTION Narrative EXTERNAL LAB - 01/13/2023 8:21 PM CDT Verified by Monie Siddiqui on 01/13/2023. us Cathleen Gallegos MD CHEMISTRY ORDERABLES Final Resul t EXTERNAL LAB * (ABNORMAL) Lipid Panel(AMA) w/LDL Calculated (01/12/2023 7:51 AM CLERK TELEVISION PRODUCTION) Total Cholesterol - External 284(H) 0 - 199 mg/dL EXTERNAL LAB HDL Cholesterol - External 38(L) 40 - 100 mg/dL EXTERNAL LAB Triglycerides - External 783(H) 0 - 149 mg/dL EXTERNAL LAB Blood VEIN SPECIMEN / Unknown 01/12/2023 7:51 AM CLERK TELEVISION PRODUCTION Narrative EXTERNAL LAB - 01/13/2023 8:21 PM CDT Verified by Monie Siddiqui on 01/13/2023. us Cathleen Gallegos MD CHEMISTRY ORDERABLES Edited Resu lt - Final EXTERNAL LAB documented in this encounter Visit Diagnoses Diagnosis Kidney transplant 01/02/2008 Lipid disorder Unspecified disorder of lipoid metabolism Type II diabetes mellitus with complication ([facility]-H[facility]) Type II or unspecified type diabetes mellitus with unspecified complication, not stated as uncontrolled documented in this encounter Care Teams Case Advocate Relationship Specialty Start Date End Date Juan Laguerre MD [address] [facility] [address] [address] PCP - General Family Medicine 01/02/18 Aubrey Crabtree III, MD [address] [facility] [address] [id number] Hematology and Medical Oncology 10/01/18 Jaki Nieves, PhD [address] [facility] [address] [place] [address] Genetic Counseling 11/27/18 documented as of this encounter
--- OUTSIDE RECORDS SUMMARY | 2025-08-09 09:31 | XMS_ITS | Encounter Summary ---
Author Organization [facility] Address [address] [place] [address] Care Team Providers Care Gastroenterologist Name Role Phone Juan Laguerre MD Primary Care Provider [phone] Bro AWAN MD, Aubrey Lane Unavailable [phone] Jaki Nieves PhD Unavailable [phone] Source Comments In the event that this is information that is protected by federal Confidentiality of Substance User Disorder Patient Records, 42 CFR Part 2 prohibits the unauthorized disclosure of these records.[facility] Encounter Details Date Type Department Care Team (Late Contact Info) Description 12/30/2023 Orders Only [place] Transplant Surgery [address] [facility] 19[address] [place] [address] Delaney Gallegos Social History Tobacco Use Types [...] Office Visit [place] Transplant Surgery [address] [facility] [place], [place] [address] Apt confirmed-EH documented as of this encounter Visit Diagnoses Diagnosis Kidney replaced by transplant documented in this encounter Care Teams Gastroenterologist Relationship Specialty Start Date End Date Juan Laguerre MD [address] [facility] [address] [place], [place] [phone] PCP - General Family Medicine 01/02/18 Aubrey Crabtree III, MD [address] [facility] [address] [place], [place] [phone] Hematology and Medical Oncology 10/01/18 Jaki Nieves, PhD [address] [facility] [address] [place], [place] [address] Genetic Counseling 11/27/18 documented as of this encounter
--- OUTSIDE RECORDS SUMMARY | 2025-08-09 09:31 | XMS_ITS | Encounter Summary ---
Author Organization [facility] Address [address] [place] [address] Care Team Providers Care Supervisor Phosphatic Fertilizer Name Role Phone Juan Laguerre MD Primary Care Provider [phone] Bro AWAN MD, Aubrey Lane Unavailable [phone] Jaki Nieves PhD Unavailable [phone] Source Comments In the event that this is information that is protected by federal Confidentiality of Substance User Disorder Patient Records, 42 CFR Part 2 prohibits the unauthorized disclosure of these records.[facility] Encounter Details Date Type Department Care Team (Late Contact Info) Description 01/05/2019 Orders Only [place] Transplant Surgery [address] [facility], [address]th [address] [place] [address] Cara Cook RN Social History Tobacco Use [...] [address], [address] [place] [address] Apt confirmed-EH documented as of this encounter Procedures Procedure Name Priority Date/Time Associated Diagnosis Comments BK VIRUS QUANT VIRAL LOAD, URINE Routine 01/09/2019 5:33 AM LACE MENDER BK VIRUS DNA QUANT PCR, BLOOD Routine 01/09/2019 5:33 AM LACE MENDER CBC (HEMOGRAM) Routine 01/09/2019 5:33 AM LACE MENDER TRANSFERRIN Routine 01/09/2019 5:33 AM LACE MENDER FOLATE Routine 01/09/2019 5:33 AM LACE MENDER VITAMIN B12 Routine 01/09/2019 5:33 AM LACE MENDER PROTEIN/CREAT RATIO, RANDOM URINE Routine 01/09/2019 12:00 AM LACE MENDER URINALYSIS WITH MICROSCOPIC Routine 01/09/2019 12:00 AM LACE MENDER CBC AND DIFFERENTIAL Routine 01/09/2019 12:00 AM LACE MENDER HEMOGLOBIN A1C Routine 01/09/2019 12:00 AM LACE MENDER FERRITIN Routine 01/09/2019 12:00 AM LACE MENDER LIPID PANEL (AMA) W/LDL CALC Routine 01/09/2019 12:00 AM LACE MENDER COMPREHENSIVE METABOLIC PANEL Routine 01/09/2019 12:00 AM LACE MENDER documented in this encounter Results * BK Virus DNA Quant PCR, Blood (01/09/2019 5:33 AM LACE MENDER) BK Virus DNA, Qn PCR - External DET EXTERNAL LAB 01/09/2019 5:33 AM LACE MENDER Narrative EXTERNAL LAB - 01/17/2019 7:25 AM CDT Verified by Monie Siddiqui on 01/17/2019. Tawnya Peck MD IMMUNOLOGY ORDERABL ES Final Result EXTERNAL LAB * BK Virus Quant Viral Load, Urine (01/09/2019 5:33 AM LACE MENDER) BK Quantitation Urine - External 21,100/DE T EXTERNAL LAB 01/09/2019 5:33 AM LACE MENDER Narrative EXTERNAL LAB - 01/17/2019 7:25 AM CDT Verified by Monie Siddiqui on 01/17/2019. Tawnya Peck MD URINE ORDERABLES Fi nal Result Performing Organization Address [facility] de Phone Number EXTERNAL LAB * (ABNORMAL) Vitamin B12 (01/09/2019 5:33 AM LACE MENDER) Vitamin B12 - External 1,195(H) 200 - 900 pg/Ml EXTERNAL LAB 01/09/2019 5:33 AM LACE MENDER Narrative EXTERNAL LAB - 01/15/2019 10:30 AM CDT Verified by Monie Siddiqui on 01/15/2019. Tawnya Peck MD CHEMISTRY ORDERABLE S Final Result Performing Organization Address City/[facility] Co de Phone Number EXTERNAL LAB * Folate (01/09/2019 5:33 AM LACE MENDER) Folate, Serum - External 14.2 5.5 - 17.5 ng/mL EXTERNAL LAB 01/09/2019 5:33 AM LACE MENDER Narrative EXTERNAL LAB - 01/15/2019 10:30 AM CDT Verified by Monie Siddiqui on 01/15/2019. us Tawnya Peck MD CHEMISTRY ORDERABLE S Final Result EXTERNAL LAB * Transferrin (01/09/2019 5:33 AM LACE MENDER) Transferrin - External 300 200 - 360 mg/dL EXTERNAL LAB 01/09/2019 5:33 AM LACE MENDER Narrative EXTERNAL LAB - 01/15/2019 10:30 AM CDT Verified by Monie Siddiqui on 01/15/2019. Tawnya Peck MD CHEMISTRY ORDERABLE S Final Result Performing Organization Address [facility] de Phone Number EXTERNAL LAB * CBC(Hemogram) (01/09/2019 5:33 AM LACE MENDER) Pathologist [facility] White Blood Cells - External 9.75 EXTERNAL LAB Red Blood Cells - External 4.81 EXTERNAL LAB Hemoglobin - External 11.4 EXTERNAL LAB Hematocrit - External 39.1 EXTERNAL LAB MCV - External 81.3 EXTERNAL LAB MCH - External 23.7 EXTERNAL LAB MCHC - External 29.2 EXTERNAL LAB Platelets - External 326 EXTERNAL LAB RDW - External 27.7 EXTERNAL LAB 01/09/2019 5:33 AM LACE MENDER Narrative EXTERNAL LAB - 01/09/2019 11:30 AM LACE MENDER Verified by Galina Raza on 01/09/2019. Noe Keyes MD HEMATOLOGY ORDERABLES Final Result Performing Organization Address [facility] de Phone Number EXTERNAL LAB * CBC with Differential (01/09/2019 12:00 AM LACE MENDER) Pathologist [facility] Neutrophils Abs (cells/uL) - External 6.05 EXTERNAL LAB Neutrophils - External 62 EXTERNAL LAB Lymphocytes - External 24 EXTERNAL LAB Monocytes - External 8 EXTERNAL LAB Eosinophils - External 5 EXTERNAL LAB Basophils - External 1 EXTERNAL LAB Lymph Absolute - External 2.34 EXTERNAL LAB [place] Absolute - External 0.78 EXTERNAL LAB - External 0.49 EXTERNAL LAB Basophil Absolute - External 0.10 EXTERNAL LAB 01/09/2019 Narrative EXTERNAL LAB - 01/27/2019 9:56 AM CDT Verified by Monie Siddiqui on 01/27/2019. Physician Non-Staff HEMATOLOGY ORDERABLES Final Result Performing Organization Address [facility] de Phone Number EXTERNAL LAB * Ferritin (01/09/2019 12:00 AM LACE MENDER) Ferritin - External 90 EXTERNAL LAB 01/09/2019 Narrative EXTERNAL LAB - 01/27/2019 9:56 AM CDT Verified by Monie Siddiqui on 01/27/2019. Physician Non-Staff CHEMISTRY ORDERABLES Final R esult Performing Organization Address [facility] Co de Phone Number EXTERNAL LAB * Lipid Panel(AMA) w/LDL Calculated (01/09/2019 12:00 AM LACE MENDER) Total Cholesterol - External 165 EXTERNAL LAB Triglycerides - External 221 EXTERNAL LAB HDL Cholesterol - External 35 EXTERNAL LAB Cholesterol LDL Direct - External 86 EXTERNAL LAB 01/09/2019 Narrative EXTERNAL LAB - 01/27/2019 9:56 AM CDT Verified by Monie Siddiqui on 01/27/2019. Physician Non-Staff CHEMISTRY ORDERABLES Final R esult Performing Organization Address [facility] Co de Phone Number EXTERNAL LAB * Protein /Creatinine Ratio, Urine (01/09/2019 12:00 AM LACE MENDER) Prot/Creat Ratio - External 0.98 EXTERNAL LAB Urine Creatinine, Random - External 51 EXTERNAL LAB Protein, Urine - External 50.1 EXTERNAL LAB 01/09/2019 Narrative EXTERNAL LAB - 01/27/2019 9:56 AM CDT Verified by Monie Siddiqui on 01/27/2019. Physician Non-Staff URINE ORDERABLES Final Resul t Performing Organization Address [facility] de Phone Number EXTERNAL LAB * Urinalysis with Microscopic (01/09/2019 12:00 AM LACE MENDER) UA Color - External Yellow Yellow EXTERNAL LAB UA Appearance - External Clear Clear EXTERNAL LAB UA WBC - External 0-5 0 - 5 EXTERNAL LAB UA Leukocyte Esterase - External NEG EXTERNAL LAB UA Protein - External 1+ EXTERNAL LAB UA Glucose - External TRACE EXTERNAL LAB UA Ketones - External NEG EXTERNAL LAB UA Bilirubin - External NEG EXTERNAL LAB UA Blood - External NEG EXTERNAL LAB UA RBC - External 0-5 EXTERNAL LAB UA Nitrate - External NEG EXTERNAL LAB UA Urobilinogen - External <2.0 EXTERNAL LAB 01/09/2019 Narrative EXTERNAL LAB - 01/27/2019 9:56 AM CDT Verified by Monie Siddiqui on 01/27/2019. us Physician Non-Staff URINE ORDERABLES Final Resul t Performing Organization Address City/[facility]/ZIP Co de Phone Number EXTERNAL LAB * Hemoglobin A1c (01/09/2019 12:00 AM LACE MENDER) Hemoglobin A1C - External 7.6 EXTERNAL LAB 01/09/2019 Narrative EXTERNAL LAB - 01/27/2019 9:56 AM CDT Verified by Monie Siddiqui on 01/27/2019. us Physician Non-Staff CHEMISTRY ORDERABLES Final R esult Performing Organization Address City/[facility] Co de Phone Number EXTERNAL LAB * Comp Metabolic Panel (01/09/2019 12:00 AM LACE MENDER) GFR(Others) - External 51 <60 EXTERNAL LAB Sodium - External 136 EXTERNAL LAB Potassium - External 4.5 EXTERNAL LAB Chloride - External 103 EXTERNAL LAB CO2 - External 27 EXTERNAL LAB Anion Gap - External 10.5 EXTERNAL LAB Glucose - External 255 EXTERNAL LAB Urea Nitrogen - External 28 EXTERNAL LAB Creatinine - External 1.40 EXTERNAL LAB Total Protein - External 7.5 EXTERNAL LAB Albumin - External 3.7 EXTERNAL LAB Calcium - External 8.9 EXTERNAL LAB Total Bilirubin - External 0.4 EXTERNAL LAB AST (SGOT) - External 14 EXTERNAL LAB ALT (SGPT) - External 19 EXTERNAL LAB Alkaline Phos - External 88 EXTERNAL LAB GFR() - External 60 EXTERNAL LAB 01/09/2019 Narrative EXTERNAL LAB - 01/27/2019 9:56 AM CDT Verified by Monie Siddiqui on 01/27/2019. us Physician Non-Staff CHEMISTRY ORDERABLES Final R esult Performing Organization Address City/[facility]/ZIP Co de Phone Number EXTERNAL LAB documented in this encounter Visit Diagnoses Diagnosis 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) Liver replaced by transplant Kidney replaced by transplant documented in this encounter Additional Health Concerns Infection Onset Date Last Indicated Resolved Time COVID-19 Comment:Tested + on 09/0109/01/2020 09/05/2020 09/25/2020 12: 31 AM LACE MENDER documented as of this encounter Care Teams Supervisor Phosphatic Fertilizer Relationship Specialty Start Date End Date Juan Laguerre MD [address] [facility] [facility] [facility] [address], [place] [id number] PCP - General Family Medicine 01/02/18 Aubrey Crabtree III, MD [address] [facility] [facility] [facility] [address], [place] [id number] Hematology and Medical Oncology 10/01/18 Jaki Nieves, PhD [address] [facility] [address] [place] [address] Genetic Counseling 11/27/18 documented as of this encounter
--- OUTSIDE RECORDS SUMMARY | 2025-08-09 09:31 | XMS_ITS | Encounter Summary ---
Author Organization [facility] Address [address] [place] [address] Care Team Providers Care Medical Massage Therapist Name Role Phone Juan Laguerre MD Primary Care Provider [phone] Bro AWAN MD, Aubrey Lane Unavailable [phone] Jaki Nieves PhD Unavailable [phone] Source Comments In the event that this is information that is protected by federal Confidentiality of Substance User Disorder Patient Records, 42 CFR Part 2 prohibits the unauthorized disclosure of these records.[facility] Encounter Details Date Type Department Care Team (Late Contact Info) Description 08/10/2024 Orders Only [place] Transplant Surgery [address] [facility], 19th [address] [place] [address] Delaney Gallegos Social History Tobacco Use Types [...] [facility], [address] [place], [place] [address] Apt confirmed-EH documented as of this encounter Visit Diagnoses Diagnosis Kidney replaced by transplant documented in this encounter Care Teams Medical Massage Therapist Relationship Specialty Start Date End Date Juan Laguerre MD [address] [facility] [address] [place], [place] [id number] PCP - General Family Medicine 01/02/18 Aubrey Crabtree III, MD [address] [facility] [address] [place], [place] [id number] Hematology and Medical Oncology 10/01/18 Jaki Nieves, PhD [address] [facility] [address] [place], [place] [address] Genetic Counseling 11/27/18 documented as of this encounter
--- OUTSIDE RECORDS SUMMARY | 2025-08-09 09:31 | XMS_ITS | Encounter Summary ---
Author Organization [facility] Address [address] [place] [address] Care Team Providers Care Senior Ux Developer Name Role Phone Juan Laguerre MD Primary Care Provider [phone] Bro AWAN MD, Aubrey Lane Unavailable [phone] Jaki Nieves PhD Unavailable [phone] Source Comments In the event that this is information that is protected by federal Confidentiality of Substance User Disorder Patient Records, 42 CFR Part 2 prohibits the unauthorized disclosure of these records.[facility] Reason for Referral * Test (Routine) - Closed Specialty Diagnoses / Procedures Referred By Contac t Referred To Contact Cardiology Diagnoses S/P TAVR (transcatheter aortic valve replacement) Procedures Echo 2D Doppler Adult Roxann Mercado APRN, REPORT SPECIALIST [address] [facility] [address] [place] [address] Phone: tel: fax: Referral ID Status Reason Start Date Expiration Date Visits Re quested Visits Authorized [id number] Closed 01/27/2019 04/27/2020 1 1 Encounter Details Date Type Department Care Team (Late st Contact Info) Description 01/27/2019 Ancillary Orders [place] Cardiology [address] [place] [address] [place] [address] Roxann Mercado, SENIOR CONSULTANT, REPORT SPECIALIST [address] [facility] [address] [place] [id number] S/P TAVR (transcatheter aortic valve replacement) Social History Tobacco Use Types Packs/Day Years [...] Description 07/15/2026 1:00 PM CDT Office Visit [place] Transplant Surgery [address] [facility], 19th [address] [place] [address] Apt confirmed-EH documented as of this encounter Results * ECHO 2D DOPPLER (01/27/2019 12:05 PM CDT) Reported EF 53 % NM CV C SYNGO Anatomical Region Laterality Modality Ultrasound 01/27/2019 11:3 3 AM CDT Narrative 01/27/2019 12:40 PM CDT [facility] [place] [address] [place] [address] Echocardiography Report: ECHO 2D DOPPLER ADULT Date of service: 01/27/2019 11:33:39 AM Ordering physician: [id number] ROXANN ROY Legal Billing Clerk: Arthur Molina Interpreting Physician: [id number] Garcia Neves Referring Physician: PATIENT: Name: Margo MAYFIELD Date of : 1960 Age: 58 years Gender: M Admission status: Outpatient Primary rhythm: sinus. Height: 182.88 cm BSA: 2.12 m Weight: 88.45 kg BMI: 26.4 kg/m Primary rhythm: sinus. Heart rate 95 bpm Blood pressure 115/70 mmHg Study quality: fair. MEASUREMENTS: Value Indexed Value Sinus of Valsalva 3.2 cm Left atrium diameter 3.6 cm (2D) Left atrial volume 82.5 ml. 38.94 ml/m . LV ID (diastole) 5.3 cm (2D) 2.5 cm/m LV ID (systole) 3.4 cm (2D) 1.6 cm/m IVS, leaflet tips 1.1 cm (2D) Posterior wall thickness 1.3 cm (2D) LV stroke volume 58 ml (2D biplane) LVOT diam 2.1 cm LVOT stroke volume 99 ml 46.9 ml/m LV end diastolic volume 110 ml (2D biplane) 51.8 ml/m LV end systolic volume 52 ml (2D biplane) 24.5 ml/m Ejection Fraction 53 % (2D biplane) RV basal diameter 4.0 cm TAPSE 14.0 mm Doppler: Value AV Peak Velocity 1.9 m/s AV Peak Gradient 14 mmHg AV Mean Gradient 7 mmHg AV Velocity Time Integral 34.0 cm LVOT Peak Velocity 1.3 m/s LVOT Peak Gradient 7 mmHg LVOT Velocity Time Integral 28.7 cm AV Area Cont Eq VTI 2.9 cm AV Area Cont Eq peak 2.5 cm MV Area PHT 4.49 cm Mitral E Point Velocity 1.5 m/s Mitral A Point Velocity 0.3 m/s PV Peak Velocity 0.7 m/s PV Peak Gradient 2 mmHg RVOT Peak Velocity 0.7 m/s FINDINGS: LEFT VENTRICLE: The left ventricle is normal in size. There is mild concentric left ventricular hypertrophy. There is mild basal septal hypertrophy. Left ventricular systolic function is low normal. EF = 53% (2D biplane) Left ventricular diastolic function is indeterminate due to E/A fusion. Left Atrial pressures are indeterminate. LV Wall Motion: Left ventricular wall motion is normal. All scored segments are normal. RIGHT VENTRICLE: The right ventricle is normal in size. Right ventricular systolic function is low normal. The right atrial pressure is 3 mmHg. LEFT ATRIUM: The left atrial size is mildly enlarged. The LA volume is 82.5 ml, 38.9 ml/m when indexed. RIGHT ATRIUM: The right atrial cavity is normal in size. MITRAL VALVE: There is mild posterior mitral annular calcification. There is mild mitral valve leaflet thickening. There is mild posterior and anterior mitral leaflet calcification. There is no mitral stenosis. There is trivial mitral valve regurgitation. TRICUSPID VALVE: The tricuspid valve leaflets are structurally normal. There is no tricuspid stenosis. There is trivial tricuspid valve regurgitation. AORTIC VALVE: There is a Poly 3 prosthetic valve present in the aortic valve position (size #29) that appears well seated. There is no aortic valve stenosis. The peak gradient is 14 mmHg (peak velocity = 1.9 m/s). The mean gradient is 7 mmHg. AV area is 2.91 cm (Indexed area: 1.37 cm /m ). The dimensionless valve index is 0.85. The LVOT diameter is 2.1 cm. There is no aortic valve regurgitation. PULMONIC VALVE The pulmonic valve is not well seen. There is no pulmonic stenosis. There is trivial pulmonic valve regurgitation. AORTA: The aorta is not well seen. The visualized aorta is normal in size. Measurements - Sinus 3.2 cm. Proximal ascending aorta 3.5 cm. PERICARDIUM: There is no pericardial effusion. CONCLUSIONS: -Two-dimensional transthoracic echocardiography was performed using standard views & projections with M-mode and Doppler (continuous, pulsed wave, spectral & color flow). Three-dimensional imaging was performed. -The left ventricle is normal in size. There is mild concentric left ventricular hypertrophy. Left ventricular systolic function is low normal. EF = 53% (2D biplane) All scored segments are normal. Left ventricular diastolic function is indeterminate due to E/A fusion. -The right ventricle is normal in size. Right ventricular systolic function is low normal. The right atrial pressure is 3 mmHg. -The left atrial size is mildly enlarged. -There is trivial mitral valve regurgitation. -There is trivial tricuspid valve regurgitation. -There is a Poly 3 prosthetic valve present in the aortic valve position (size #29) that appears well seated. There is no aortic valve regurgitation. The peak gradient is 14 mmHg and the mean gradient is 7 mmHg. Sinus of Valsalva 3.2 cm. The visualized aorta is normal in size. -There is no significant change from the previous study of 12/27/18. . Final Procedure Note Garcia Neves MD - 01/27/2019 [facility] [place] [address] [place] [id number] Echocardiography Report: ECHO 2D DOPPLER ADULT Date of service: 01/27/2019 11:33:39 AM Ordering physician: [id number] ROXANN ROY Legal Billing Clerk: Arthur Molina Interpreting Physician: [id number] Garcia Neves Referring Physician: PATIENT: Name: Margo MAYFIELD Date of : 1960 Age: 58 years Gender: M Admission status: Outpatient Primary rhythm: sinus. Height: 182.88 cm BSA: 2.12 m Weight: 88.45 kg BMI: 26.4 kg/m Primary rhythm: sinus. Heart rate 95 bpm Blood pressure 115/70 mmHg Study quality: fair. MEASUREMENTS: Value Indexed Value Sinus of Valsalva 3.2 cm Left atrium diameter 3.6 cm (2D) Left atrial volume 82.5 ml. 38.94 ml/m . LV ID (diastole) 5.3 cm (2D) 2.5 cm/m LV ID (systole) 3.4 cm (2D) 1.6 cm/m IVS, leaflet tips 1.1 cm (2D) Posterior wall thickness 1.3 cm (2D) LV stroke volume 58 ml (2D biplane) LVOT diam 2.1 cm LVOT stroke volume 99 ml 46.9 ml/m LV end diastolic volume 110 ml (2D biplane) 51.8 ml/m LV end systolic volume 52 ml (2D biplane) 24.5 ml/m Ejection Fraction 53 % (2D biplane) RV basal diameter 4.0 cm TAPSE 14.0 mm Doppler: Value AV Peak Velocity 1.9 m/s AV Peak Gradient 14 mmHg AV Mean Gradient 7 mmHg AV Velocity Time Integral 34.0 cm LVOT Peak Velocity 1.3 m/s LVOT Peak Gradient 7 mmHg LVOT Velocity Time Integral 28.7 cm AV Area Cont Eq VTI 2.9 cm AV Area Cont Eq peak 2.5 cm MV Area PHT 4.49 cm Mitral E Point Velocity 1.5 m/s Mitral A Point Velocity 0.3 m/s PV Peak Velocity 0.7 m/s PV Peak Gradient 2 mmHg RVOT Peak Velocity 0.7 m/s FINDINGS: LEFT VENTRICLE: The left ventricle is normal in size. There is mild concentric left ventricular hypertrophy. There is mild basalseptal hypertrophy. Left ventricular systolic function is low normal. EF = 53% (2D biplane) Left ventricular diastolic function is indeterminate due to E/A fusion.Left Atrial pressures are indeterminate. LV Wall Motion: Left ventricular wall motion is normal. All scored segments are normal. RIGHT VENTRICLE: The right ventricle is normal in size. Right ventricular systolic functionis low normal. The right atrial pressure is 3 mmHg. LEFT ATRIUM: The left atrial size is mildly enlarged. The LA volume is 82.5 ml, 38.9ml/m when indexed. RIGHT ATRIUM: The right atrial cavity is normal in size. MITRAL VALVE: There is mild posterior mitral annular calcification. There is mild mitralvalve leaflet thickening. There is mild posterior and anterior mitralleaflet calcification. There is no mitral stenosis. There is trivialmitral valve regurgitation. TRICUSPID VALVE: The tricuspid valve leaflets are structurally normal. There is notricuspid stenosis. There is trivial tricuspid valve regurgitation. AORTIC VALVE: There is a Poly 3 prosthetic valve present in the aortic valve position(size #29) that appears well seated. There is no aortic valve stenosis.The peak gradient is 14 mmHg (peak velocity = 1.9 m/s). The mean gradientis 7 mmHg. AV area is 2.91 cm (Indexed area: 1.37 cm /m ). Thedimensionless valve index is 0.85. The LVOT diameter is 2.1 cm. There isno aortic valve regurgitation. PULMONIC VALVE The pulmonic valve is not well seen. There is no pulmonic stenosis. Thereis trivial pulmonic valve regurgitation. AORTA: The aorta is not well seen. The visualized aorta is normal in size. Measurements - Sinus 3.2 cm. Proximal ascending aorta 3.5 cm. PERICARDIUM: There is no pericardial effusion. CONCLUSIONS: -Two-dimensional transthoracic echocardiography was performed usingstandard views & projections with M-mode and Doppler (continuous, pulsedwave, spectral & color flow). Three-dimensional imaging was performed. -The left ventricle is normal in size. There is mild concentric leftventricular hypertrophy. Left ventricular systolic function is low normal.EF = 53% (2D biplane) All scored segments are normal. Left ventricular diastolic function is indeterminate due to E/A fusion. -The right ventricle is normal in size. Right ventricular systolicfunction is low normal. The right atrial pressure is 3 mmHg. -The left atrial size is mildly enlarged. -There is trivial mitral valve regurgitation. -There is trivial tricuspid valve regurgitation. -There is a Poly 3 prosthetic valve present in the aortic valve position(size #29) that appears well seated. There is no aortic valveregurgitation. The peak gradient is 14 mmHg and the mean gradient is 7mmHg. Sinus of Valsalva 3.2 cm. The visualized aorta is normal in size. -There is no significant change from the previous study of 12/27/18. . Final Roxann Mercado SENIOR CONSULTANT, REPORT SPECIALIST ECHO ORDERABLES Fin al Result documented in this encounter Visit Diagnoses Diagnosis S/P TAVR (transcatheter aortic valve replacement) S/P TAVR (transcatheter aortic valve replacement) documented in this encounter Additional Health Concerns Infection Onset Date Last Indicated Resolved Time COVID-19 Comment:Tested + on 09/0109/01/2020 09/05/2020 09/25/2020 12: 31 AM VOICE STUDIES DIRECTOR documented as of this encounter Care Teams Senior Ux Developer Relationship Specialty Start Date End Date Juan Laguerre MD [address] [address] PCP - General Family Medicine 01/02/18 Aubrey Crabtree III, MD [address] [address] Hematology and Medical Oncology 10/01/18 Jaki Nieves, PhD [address] [facility] [address] [place] [address] Genetic Counseling 11/27/18 documented as of this encounter
--- OUTSIDE RECORDS SUMMARY | 2025-08-09 09:31 | XMS_ITS | Encounter Summary ---
Author Organization [facility] Address [address] [place] [address] Care Team Providers Care Water Superintendent Name Role Phone Juan Laguerre MD Primary Care Provider [phone] Bro AWAN MD, Aubrey Lane Unavailable [phone] Jaki Nieves PhD Unavailable [phone] Source Comments In the event that this is information that is protected by federal Confidentiality of Substance User Disorder Patient Records, 42 CFR Part 2 prohibits the unauthorized disclosure of these records.[facility] Encounter Details Date Type Department Care Team (Late st Contact Info) Description 09/23/2023 Orders Only [place] Transplant Surgery [address] [facility], 19th [address] [place], [place] [address] Cathleen Gallegos MD [address] [facility] [address] [address] Social History Tobacco Use Types Packs/Day Years [...] NM Transplant Surgery [address] [facility], 19th [address] [place] [address] Apt confirmed-EH documented as of this encounter Procedures Procedure Name Priority Date/Time Associated Diagnosis Comments EVEROLIMUS LEVEL Routine 10/15/2023 7:26 AM PORTABLE POWER TOOL REPAIRER documented in this encounter Results * Everolimus Level (10/15/2023 7:26 AM PORTABLE POWER TOOL REPAIRER) Everolimus Level - External 7.3 EXTERNAL LAB 10/15/2023 7:26 AM PORTABLE POWER TOOL REPAIRER Narrative EXTERNAL LAB - 10/18/2023 6:00 AM PORTABLE POWER TOOL REPAIRER Verified by Koki Burks on 10/18/2023. us Cathleen Gallegos MD CHEMISTRY ORDERABLES Final Resul t EXTERNAL LAB documented in this encounter Visit Diagnoses Diagnosis Kidney replaced by transplant documented in this encounter Care Teams Water Superintendent Relationship Specialty Start Date End Date Juan Laguerre MD [address] [place] [address] PCP - General Family Medicine 01/02/18 Aubrey Crabtree III, MD [address] [place] [address] Hematology and Medical Oncology 10/01/18 Jaki Nieves, PhD [address] [facility] [address] [place] [address] Genetic Counseling 11/27/18 documented as of this encounter
--- OUTSIDE RECORDS SUMMARY | 2025-08-09 09:31 | XMS_ITS | Encounter Summary ---
Author Organization [facility] Address [address] [place] [address] Care Team Providers Care Electronics Design Engineer Name Role Phone Juan Laguerre MD Primary Care Provider [phone] Bro AWAN MD, Aubrey Lane Unavailable [phone] Jaki Nieves PhD Unavailable [phone] Source Comments In the event that this is information that is protected by federal Confidentiality of Substance User Disorder Patient Records, 42 CFR Part 2 prohibits the unauthorized disclosure of these records.[facility] Encounter Details Date Type Department Care Team (Late Contact Info) Description 04/20/2024 Orders Only NM Transplant Surgery [address] [facility], 19th [address] [place] [address] Delaney Gallegos Social History Tobacco Use Types [...] Office Visit NM Transplant Surgery [address] [facility], [address]th [address] [place], [place] [address] Apt confirmed-EH documented as of this encounter Visit Diagnoses Diagnosis Kidney replaced by transplant documented in this encounter Care Teams Electronics Design Engineer Relationship Specialty Start Date End Date Juan Laguerre MD [address] [facility] [address] [place], [place] [id number] PCP - General Family Medicine 01/02/18 Aubrey Crabtree III, MD [address] [facility] [address] [place], [place] [phone] Hematology and Medical Oncology 10/01/18 Jaki Nieves, PhD [address] [facility] [address] [place], [place] [address] Genetic Counseling 11/27/18 documented as of this encounter
--- OUTSIDE RECORDS SUMMARY | 2025-08-09 09:31 | XMS_ITS | Encounter Summary ---
Author Organization [facility] Address [address] [place] [address] Care Team Providers Care Travel Cota Name Role Phone Juan Laguerre MD Primary Care Provider [phone] Bro AWAN MD, Aubrey Lane Unavailable [phone] Jaki Nieves PhD Unavailable [phone] Source Comments In the event that this is information that is protected by federal Confidentiality of Substance User Disorder Patient Records, 42 CFR Part 2 prohibits the unauthorized disclosure of these records.[facility] Encounter Details Date Type Department Care Team (Late st Contact Info) Description 02/18/2023 Orders Only NM Transplant Surgery [address] [facility], 19th Floor [address] [place], [place] [address] Cathleen Gallegos MD [address] [facility] [address], [place] [address] Social History Tobacco Use Types Packs/Day Years [...] NM Transplant Surgery [address] [facility], 19th Floor [address] [place] [address] Apt confirmed-EH Pending Results Name Type Priority Associated Diagnoses Date /Time BK Virus DNA Quant PCR, Blood Lab Routine 03/06/2023 6:49 AM CDT BK Virus Quant Viral Load, Urine Lab Routine 03/06/2023 6:49 AM CDT documented as of this encounter Procedures Procedure Name Priority Date/Time Associated Diagnosis Comments BK VIRUS QUANT VIRAL LOAD, URINE Routine 03/06/2023 6:49 AM CDT OP URINALYSIS WITH MICROSCOPIC, REFLEX TO CULTURE Routine 03/06/2023 6:49 AM CDT BK VIRUS DNA QUANT PCR, BLOOD Routine 03/06/2023 6:49 AM CDT CBC (HEMOGRAM) Routine 03/06/2023 6:49 AM CDT HEMOGLOBIN A1C Routine 03/06/2023 6:49 AM CDT LIPID PANEL (AMA) W/LDL CALC Routine 03/06/2023 6:49 AM CDT BASIC METABOLIC PANEL Routine 03/06/2023 6:49 AM CDT documented in this encounter Results * (ABNORMAL) Hemoglobin A1c (03/06/2023 6:49 AM CDT) Hemoglobin A1C - External 8.8(H) 3.8 - 5.6 % EXTERNAL LAB Estimated Average Glucose - External 205.9 mg/dL EXTERNAL LAB 03/06/2023 6:49 AM CDT Narrative EXTERNAL LAB - 03/07/2023 9:25 AM CDT Verified by Koki Burks on 03/07/2023. us Physician Non-Staff CHEMISTRY ORDERABLES Final R esult EXTERNAL LAB * (ABNORMAL) Urinalysis w/Microscopic, reflex culture (03/06/2023 6:49 AM CDT) UA Color - External Yellow Yellow EXTERNAL LAB UA Appearance - External Clear Clear EXTERNAL LAB UA pH - External 6.0 5.0 - 8.0 EXTERNAL LAB Specific [place], Urine - External 1.013 1.003 - 1.035 EXTERNAL LAB UA Protein - External Trace(H) Negative EXTERNAL LAB UA Glucose - External Negative Negative EXTERNAL LAB UA Ketones - External Negative Negative EXTERNAL LAB UA Bilirubin - External Negative Negative EXTERNAL LAB UA Blood - External 2+ Negative EXTERNAL LAB UA Urobilinogen - External <2.0 0.0 - 2.0 mg/dL EXTERNAL LAB UA Nitrate - External Negative Negative EXTERNAL LAB UA Leukocyte Esterase - External Negative Negative EXTERNAL LAB UA WBC - External 0-5 <1 EXTERNAL LAB UA RBC - External 51-150 51 - 150 EXTERNAL LAB 03/06/2023 6:49 AM CDT Narrative EXTERNAL LAB - 03/06/2023 2:41 PM CDT Verified by Koki Burks on 03/06/2023. Cathleen Gallegos MD URINE ORDERABLES Final Result Performing Organization Address [facility] de Phone Number EXTERNAL LAB * Lipid Panel(AMA) w/LDL Calculated (03/06/2023 6:49 AM CDT) Total Cholesterol - External 277 EXTERNAL LAB Triglycerides - External 697 EXTERNAL LAB HDL Cholesterol - External 35 EXTERNAL LAB Cholesterol LDL Direct - External 102.6 EXTERNAL LAB 03/06/2023 6:49 AM CDT Narrative EXTERNAL LAB - 03/06/2023 2:41 PM CDT Verified by Koki Burks on 03/06/2023. us Cathleen Gallegos MD CHEMISTRY ORDERABLES Final Resul t Performing Organization Address [facility]/ZIP Co de Phone Number EXTERNAL LAB * (ABNORMAL) Basic Metabolic Panel (03/06/2023 6:49 AM CDT) Sodium - External 136 133 - 145 mmol/L EXTERNAL LAB Potassium - External 4.8 3.5 - 5.1 mmol/L EXTERNAL LAB Chloride - External 106 96 - 108 mmol/L EXTERNAL LAB CO2 - External 24 21 - 32 mmol/L EXTERNAL LAB Anion Gap - External 10.8 10.0 - 20.0 mmol/L EXTERNAL LAB Urea Nitrogen - External 26(H) 6 - 19 mg/dL EXTERNAL LAB Creatinine - External 1.70(H) 0.50 - 1.30 ml/min/1.7 3m2 EXTERNAL LAB GFR() - External 45 EXTERNAL LAB Glucose - External 148(H) 80 - 115 mg/dL EXTERNAL LAB Calcium - External 8.6(L) 8.8 - 10.0 mg/dL EXTERNAL LAB 03/06/2023 6:49 AM CDT Narrative EXTERNAL LAB - 03/06/2023 2:41 PM CDT Verified by Koki Burks on 03/06/2023. us Cathleen Gallegos MD CHEMISTRY ORDERABLES Final Resul t EXTERNAL LAB * (ABNORMAL) CBC without Differential (Hemogram) (03/06/2023 6:49 AM CDT) Hemoglobin - External 16.1 3.1 - 17.2 gm/dl EXTERNAL LAB Hematocrit - External 55.0(H) 39.8 - 52.2 % EXTERNAL LAB Red Blood Cells - External 7.05(H) 4.30 - 5.70 x10^6 EXTERNAL LAB MCV - External 78.0(L) 80.0 - 100.0 fL EXTERNAL LAB MCH - External 22.8(L) 26.5 - 33.9 pg EXTERNAL LAB MCHC - External 29.3(L) 31.5 - 36.0 EXTERNAL LAB RDW - External 20.2(H) 11.8 - 15.5 EXTERNAL LAB White Blood Cells - External 10.6 3.9 - 11.0 x10^3 EXTERNAL LAB Platelets - External 128(L) 140 - 445 x10^3 EXTERNAL LAB 03/06/2023 6:49 AM CDT Narrative EXTERNAL LAB - 03/06/2023 2:41 PM CDT Verified by Koki Burks on 03/06/2023. us Cathleen Gallegos MD HEMATOLOGY ORDERABLES Final Resu lt EXTERNAL LAB documented in this encounter Visit Diagnoses Diagnosis Kidney transplant 01/02/2008 documented in this encounter Care Teams Travel Cota Relationship Specialty Start Date End Date Juan Laguerre MD [address] [facility] [address] [place] [address] PCP - General Family Medicine 01/02/18 Aubrey Crabtree III, MD [address] [facility] [address] [place] [address] Hematology and Medical Oncology 10/01/18 Jaki Nieves, PhD [address] [facility] [address] [place] [address] Genetic Counseling 11/27/18 documented as of this encounter
--- OUTSIDE RECORDS SUMMARY | 2025-08-09 09:31 | XMS_ITS | Encounter Summary ---
Author Organization [facility] Address [address] [place] [address] Care Team Providers Care Sales Representatives Name Role Phone Juan Laguerre MD Primary Care Provider [phone] Bro AWAN MD, Aubrey Lane Unavailable [phone] Jaki Nieves PhD Unavailable [phone] Source Comments In the event that this is information that is protected by federal Confidentiality of Substance User Disorder Patient Records, 42 CFR Part 2 prohibits the unauthorized disclosure of these records.[facility] Encounter Details Date Type Department Care Team (Late st Contact Info) Description 06/22/2024 Orders Only NM Transplant Surgery [address] [facility], [address]th [address] [place], [place] [address] Cathleen Gallegos MD [address] [facility] 19[place] [address] Social History Tobacco Use Types Packs/Day Years [...] Visit NM Transplant Surgery [address] [facility], [address] [place] [address] Apt confirmed-EH documented as of this encounter [...] monitoring documented in this encounter Care Teams Sales Representatives Relationship Specialty Start Date End Date Juan Laguerre MD [address] [address] PCP - General Family Medicine 01/02/18 Aubrey Crabtree III, MD [address] [address] Hematology and Medical Oncology 10/01/18 Jaki Nieves, PhD [address] [facility] [address] [place] [address] Genetic Counseling 11/27/18 documented as of this encounter
--- OUTSIDE RECORDS SUMMARY | 2025-08-09 09:31 | XMS_ITS | Encounter Summary ---
Author Organization [facility] Address [address] [place] [address] Care Team Providers Care Automobile Appraiser Name Role Phone Juan Laguerre MD Primary Care Provider [phone] Bro AWAN MD, Aubrey Lane Unavailable [phone] Jaki Nieves PhD Unavailable [phone] Source Comments In the event that this is information that is protected by federal Confidentiality of Substance User Disorder Patient Records, 42 CFR Part 2 prohibits the unauthorized disclosure of these records.[facility] Encounter Details Date Type Department Care Team (Late Contact Info) Description 03/11/2023 Orders Only NM Transplant Surgery [address] [facility], 19th Floor [address] [place] [address] Kristel Chisholm RN Social History Tobacco Use [...] Upcoming Encounters Date Type Department Care Team ([facility] Contact Info) Description 07/15/2026 1:00 PM CDT Office Visit NM Transplant Surgery [address], [address] [place] [address] Apt confirmed-EH documented as of this encounter Procedures Procedure Name Priority Date/Time Associated Diagnosis Comments BK VIRUS QUANT VIRAL LOAD, URINE Routine 03/06/2023 6:49 AM CDT BK VIRUS DNA QUANT PCR, BLOOD Routine 03/06/2023 6:49 AM CDT documented in this encounter Results * BK Virus DNA Quant PCR, Blood (03/06/2023 6:49 AM CDT) BK Virus DNA, Qn PCR - External DETECTED EXTERNAL LAB 03/06/2023 6:49 AM CDT Narrative EXTERNAL LAB - 03/11/2023 10:36 AM CDT Verified by Koki Burks on 03/11/2023. Edwin Del Toro MD IMMUNOLOGY ORDERABLES Joana l Result EXTERNAL LAB * BK Virus Quant Viral Load, Urine (03/06/2023 6:49 AM CDT) BK Quantitation Urine - External 4.8 EXTERNAL LAB 03/06/2023 6:49 AM CDT Narrative EXTERNAL LAB - 03/11/2023 10:36 AM CDT Verified by Koki Burks on 03/11/2023. 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
--- OUTSIDE RECORDS SUMMARY | 2025-08-09 09:31 | XMS_ITS | Encounter Summary ---
Author Organization [facility] Address [address] [place] [address] Care Team Providers Care Time Study Observer Name Role Phone Juan Laguerre MD Primary Care Provider [phone] Bro AWAN MD, Aubrey Lane Unavailable [phone] Jaki Nieves PhD Unavailable [phone] Source Comments In the event that this is information that is protected by federal Confidentiality of Substance User Disorder Patient Records, 42 CFR Part 2 prohibits the unauthorized disclosure of these records.[facility] Encounter Details Date Type Department Care Team (Late Contact Info) Description 11/05/2018 Procedure Pass [place] Radiology [address], [address] [place] [address] Social History Tobacco Use Types Packs/Day Years [...] Upcoming Encounters Date Type Department Care Team ([facility] Contact Info) Description 07/15/2026 1:00 PM CDT Office Visit NM Transplant Surgery [address] [facility], 19th Floor [address] [place] [address] Apt confirmed-EH documented as of this encounter Visit Diagnoses Not on filedocumented in this encounter Additional Health Concerns Infection Onset Date Last Indicated Resolved Time COVID-19 Comment:Tested + on 09/0109/01/2020 09/05/2020 09/25/2020 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
--- OUTSIDE RECORDS SUMMARY | 2025-08-09 09:31 | XMS_ITS | Encounter Summary ---
Author Organization [facility] Address [address] [place] [address] Care Team Providers Care Apprentice Plumber Name Role Phone Juan Laguerre MD Primary Care Provider [phone] Bro AWAN MD, Aubrey Lane Unavailable [phone] Jaki Nieves PhD Unavailable [phone] Source Comments In the event that this is information that is protected by federal Confidentiality of Substance User Disorder Patient Records, 42 CFR Part 2 prohibits the unauthorized disclosure of these records.[facility] Encounter Details Date Type Department Care Team (Late Contact Info) Description 12/22/2018 Procedure Pass [place] Cardiology [address], [address] [place] [address] Social History Tobacco Use Types Packs/Day Years [...] Upcoming Encounters Date Type Department Care Team (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
--- OUTSIDE RECORDS SUMMARY | 2025-08-09 09:31 | XMS_ITS | Encounter Summary ---
Author Organization [facility] Address [address] [place] [address] Care Team Providers Care Account Review Specialist Name Role Phone Juan Laguerre MD Primary Care Provider [phone] Bro AWAN MD, Aubrey Lane Unavailable [phone] Jaki Nieves PhD Unavailable [phone] Source Comments In the event that this is information that is protected by federal Confidentiality of Substance User Disorder Patient Records, 42 CFR Part 2 prohibits the unauthorized disclosure of these records.[facility] Encounter Details Date Type Department Care Team (Late Contact Info) Description 06/15/2024 Orders Only NM Transplant Surgery [address] [facility], 19th [address] [place] [address] Delaney Gallegos Social History Tobacco Use Types [...] Office Visit NM Transplant Surgery [address] [facility], 19th [address] [place], [place] [address] Apt confirmed-EH documented as of this encounter Visit Diagnoses Diagnosis Kidney replaced by transplant documented in this encounter Care Teams Account Review Specialist Relationship Specialty Start Date End Date Juan Laguerre MD [address] [facility] [address] [place], [place] [address] PCP - General Family Medicine 01/02/18 Aubrey Crabtree III, MD [address] [facility] [address] [place], [place] [address] Hematology and Medical Oncology 10/01/18 Jaki Nieves, PhD [address] [facility] [address] [place], [place] [address] Genetic Counseling 11/27/18 documented as of this encounter
--- OUTSIDE RECORDS SUMMARY | 2025-08-09 09:31 | XMS_ITS | Encounter Summary ---
Author Organization [facility] Address [address] [place] [address] Care Team Providers Care Installation Engineer Name Role Phone Juan Laguerre MD Primary Care Provider [phone] Bro AWAN MD, Aubrey Lane Unavailable [phone] Jaki Nieves PhD Unavailable [phone] Source Comments In the event that this is information that is protected by federal Confidentiality of Substance User Disorder Patient Records, 42 CFR Part 2 prohibits the unauthorized disclosure of these records.[facility] Reason for Referral * Test (Routine) - Closed Specialty Diagnoses / Procedures Referred By Contac t Referred To Contact Cardiology Diagnoses S/P TAVR (transcatheter aortic valve replacement) Procedures Echo 2D Doppler Adult Roxann Mercado APRN, TIMBER MANAGEMENT TECHNICIAN [address] [facility] [address] [place] [address] Phone: tel: fax: Referral ID Status Reason Start Date Expiration Date Visits Re quested Visits Authorized [id number] Closed 12/21/2019 01/19/2020 1 1 Encounter Details Date Type Department Care Team (Late st Contact Info) Description 01/27/2019 Ancillary Orders [place] Cardiology [address] [place] [address] [place] [address] Roxann Mercado, STRETCH PRESS OPERATOR, TIMBER MANAGEMENT TECHNICIAN [address] [facility] [address] [place] [phone] S/P TAVR (transcatheter aortic valve replacement) Social [...] Upcoming Encounters Date Type Department Care Team ([facility] st Contact Info) Description 07/15/2026 1:00 PM CDT Office Visit [place] Transplant Surgery [address] [facility], 19th [address] [place] [address] Apt confirmed-EH documented as of this encounter Results * ECHO 2D DOPPLER (12/25/2019 12:09 PM SUPERINTENDENT POLICE) Reported EF 61 % NM CV C SYNGO Anatomical Region Laterality Modality Ultrasound 12/25/2019 11:3 6 AM SUPERINTENDENT POLICE Narrative 12/25/2019 1:39 PM SUPERINTENDENT POLICE [facility] [place] [address] [place] [address] Echocardiography Report: ECHO 2D DOPPLER ADULT Date of service: 12/25/2019 11:36:14 AM Ordering physician: [id number] ROXANN ROY Reason for Study: Presence of prosthetic heart valve Paleology Teacher: Spencer Zacarias Interpreting Physician: [id number] Phillip Ch Referring Physician: PATIENT: Name: BIBIANA MAYFIELD Date of : 1960 Age: 58 years Gender: M Admission status: Outpatient Primary rhythm: sinus. Height: 182.88 cm BSA: 2.33 m Weight: 106.59 kg BMI: 31.9 kg/m Previous cardiovascular interventions: Percutaneous aortic valve replacement in 12/25/2018 using Poly 3 valve : 29 mm Primary rhythm: sinus. Heart rate 67 bpm Blood pressure 146/96 mmHg Study quality: fair. MEASUREMENTS: Value Indexed Value Sinus of Valsalva 2.3 cm Left atrial volume 54.6 ml. 23.45 ml/m . LV ID (diastole) 3.7 cm (2D) 1.6 cm/m LV ID (systole) 2.7 cm (2D) 1.2 cm/m IVS, leaflet tips 1.5 cm (2D) Posterior wall thickness 0.9 cm (2D) LV stroke volume 61 ml (2D biplane) LVOT diam 2.2 cm LVOT stroke volume 78 ml 34.4 ml/m LVOT cardiac output 5.1 l/min 2.2 l/min/m LV end diastolic volume 100 ml (2D biplane) 43.0 ml/m LV end systolic volume 39 ml (2D biplane) 16.8 ml/m Ejection Fraction 61 % (2D biplane) RV basal diameter 4.0 cm TAPSE 21.0 mm S' 10.0 Doppler: Value AV Peak Velocity 2.1 m/s AV Peak Gradient 18 mmHg AV Mean Gradient 10 mmHg AV Velocity Time Integral 49.9 cm LVOT Peak Velocity 0.8 m/s LVOT Peak Gradient 3 mmHg LVOT Velocity Time Integral 20.3 cm LVOT Cardiac Index 2.2 l/min/m AV Area Cont Eq VTI 1.6 cm AV Area Cont Eq peak 1.5 cm MV Area PHT 2.87 cm Mitral E Point Velocity 0.9 m/s Mitral A Point Velocity 1.1 m/s TR Peak Velocity 2.4 m/s TR Peak Gradient 23.0 mmHg PV Peak Velocity 0.8 m/s PV Peak Gradient 3 mmHg RVOT Peak Velocity 0.7 m/s FINDINGS: LEFT VENTRICLE: The left ventricle is normal in size. There is no left ventricular hypertrophy. Basal septum is prominent. (1.6 cm) Left ventricular systolic function is normal. EF = 61% (2D biplane) Left ventricular diastolic function is consistent with abnormal relaxation (stage I). Left Atrial pressures are elevated. Mitral annular lateral e': 8.0 cm/s. Mitral annular lateral E/e': 11.0. Mitral annular septal e': 4.0 cm/s. Mitral annular septal E/e': 22.0. The average Mitral E/e' ratio is 16.5. LV Wall Motion: All scored segments are normal. RIGHT VENTRICLE: The right ventricle is normal in size. Right ventricular systolic function is normal. The estimated right ventricular systolic pressure is 23.0 mmHg plus the right atrial pressure. LEFT ATRIUM: The left atrial size is normal. The LA volume is 54.6 ml, 23.4 ml/m when indexed. The interatrial septum is normal. RIGHT ATRIUM: The right atrial cavity is normal in size. MITRAL VALVE: There is mild posterior mitral annular calcification. There is mild mitral valve leaflet thickening. There is mild mitral leaflet calcification. There is no mitral stenosis. There is trivial mitral valve regurgitation. TRICUSPID VALVE: The tricuspid valve leaflets are structurally normal. There is no tricuspid stenosis. There is trivial tricuspid valve regurgitation. AORTIC VALVE: There is a Poly 3 prosthetic valve present in the aortic valve position (size #29) that appears well seated. S/P transcatheter aortic valve replacement. There is aortic valve stenosis. The peak gradient is 18 mmHg (peak velocity = 2.1 m/s). The mean gradient is 10 mmHg. AV area is 1.57 cm (Indexed area: 0.68 cm /m ). The dimensionless valve index is 0.41. The LVOT stroke volume index is 34.4 ml/m . There is trivial aortic valve regurgitation. PULMONIC VALVE The pulmonic valve is not well seen. There is no pulmonic stenosis. There is trivial pulmonic valve regurgitation. AORTA: The visualized aorta is normal in size. Measurements - Sinus 2.3 cm. PERICARDIUM: There is no pericardial effusion. CONCLUSIONS: -Two-dimensional transthoracic echocardiography was performed using standard views & projections with M-mode and Doppler (continuous, pulsed wave, spectral & color flow). -The left ventricle is normal in size. There is no left ventricular hypertrophy. Left ventricular systolic function is normal. EF = 61% (2D biplane) All scored segments are normal. -The right ventricle is normal in size. Right ventricular systolic function is normal. The estimated right ventricular systolic pressure is 23.0 mmHg plus the right atrial pressure. -There is a Poly 3 prosthetic valve present in the aortic valve position (size #29) that appears well seated. S/P transcatheter aortic valve replacement. There is aortic valve stenosis. The peak gradient is 18 mmHg (peak velocity = 2.1 m/s). The mean gradient is 10 mmHg. AV area is 1.57 cm (Indexed area: 0.68 cm /m ). The dimensionless valve index is 0.41. The LVOT stroke volume index is 34.4 ml/m . There is trivial aortic valve regurgitation. - -No significant other valvular abnormalities. -Normal atria and aorta. -Compared to prior echo performed on 01/27/2019 there is no significant change. . Final Procedure Note Phillip Ch MD - 12/25/2019 [facility] [place] [address] [place] [address] Echocardiography Report: ECHO 2D DOPPLER ADULT Date of service: 12/25/2019 11:36:14 AM Ordering physician: [id number] ROXANN ROY Reason for Study: Presence of prosthetic heart valve Paleology Teacher: Spencer Zacarias Interpreting Physician: [id number] Phillip Ch Referring Physician: PATIENT: Name: BIBIANA MAYFIELD Date of : 1960 Age: 58 years Gender: M Admission status: Outpatient Primary rhythm: sinus. Height: 182.88 cm BSA: 2.33 m Weight: 106.59 kg BMI: 31.9 kg/m Previous cardiovascular interventions: Percutaneous aortic valve replacement in 12/25/2018 using Poly 3 valve :29 mm Primary rhythm: sinus. Heart rate 67 bpm Blood pressure 146/96 mmHg Study quality: fair. MEASUREMENTS: Value Indexed Value Sinus of Valsalva 2.3 cm Left atrial volume 54.6 ml. 23.45 ml/m . LV ID (diastole) 3.7 cm (2D) 1.6 cm/m LV ID (systole) 2.7 cm (2D) 1.2 cm/m IVS, leaflet tips 1.5 cm (2D) Posterior wall thickness 0.9 cm (2D) LV stroke volume 61 ml (2D biplane) LVOT diam 2.2 cm LVOT stroke volume 78 ml 34.4 ml/m LVOT cardiac output 5.1 l/min 2.2 l/min/m LV end diastolic volume 100 ml (2D biplane) 43.0 ml/m LV end systolic volume 39 ml (2D biplane) 16.8 ml/m Ejection Fraction 61 % (2D biplane) RV basal diameter 4.0 cm TAPSE 21.0 mm S' 10.0 Doppler: Value AV Peak Velocity 2.1 m/s AV Peak Gradient 18 mmHg AV Mean Gradient 10 mmHg AV Velocity Time Integral 49.9 cm LVOT Peak Velocity 0.8 m/s LVOT Peak Gradient 3 mmHg LVOT Velocity Time Integral 20.3 cm LVOT Cardiac Index 2.2 l/min/m AV Area Cont Eq VTI 1.6 cm AV Area Cont Eq peak 1.5 cm MV Area PHT 2.87 cm Mitral E Point Velocity 0.9 m/s Mitral A Point Velocity 1.1 m/s TR Peak Velocity 2.4 m/s TR Peak Gradient 23.0 mmHg PV Peak Velocity 0.8 m/s PV Peak Gradient 3 mmHg RVOT Peak Velocity 0.7 m/s FINDINGS: LEFT VENTRICLE: The left ventricle is normal in size. There is no left ventricular hypertrophy. Basal septum is prominent. (1.6cm) Left ventricular systolic function is normal. EF = 61% (2D biplane) Left ventricular diastolic function is consistent with abnormal relaxation(stage I). Left Atrial pressures are elevated. Mitral annular lateral e':8.0 cm/s. Mitral annular lateral E/e': 11.0. Mitral annular septal e': 4.0cm/s. Mitral annular septal E/e': 22.0. The average Mitral E/e' ratio is16.5. LV Wall Motion: All scored segments are normal. RIGHT VENTRICLE: The right ventricle is normal in size. Right ventricular systolic functionis normal. The estimated right ventricular systolic pressure is 23.0 mmHg plus theright atrial pressure. LEFT ATRIUM: The left atrial size is normal. The LA volume is 54.6 ml, 23.4 ml/m whenindexed. The interatrial septum is normal. RIGHT ATRIUM: The right atrial cavity is normal in size. MITRAL VALVE: There is mild posterior mitral annular calcification. There is mild mitralvalve leaflet thickening. There is mild mitral leaflet calcification.There is no mitral stenosis. There is trivial mitral valveregurgitation. TRICUSPID VALVE: The tricuspid valve leaflets are structurally normal. There is notricuspid stenosis. There is trivial tricuspid valve regurgitation. AORTIC VALVE: There is a Poly 3 prosthetic valve present in the aortic valve position(size #29) that appears well seated. S/P transcatheter aortic valvereplacement. There is aortic valve stenosis. The peak gradient is 18 mmHg(peak velocity = 2.1 m/s). The mean gradient is 10 mmHg. AV area is 1.57cm (Indexed area: 0.68 cm /m ). The dimensionless valve index is 0.41.The LVOT stroke volume index is 34.4 ml/m . There is trivial aortic valveregurgitation. PULMONIC VALVE The pulmonic valve is not well seen. There is no pulmonic stenosis. Thereis trivial pulmonic valve regurgitation. AORTA: The visualized aorta is normal in size. Measurements - Sinus 2.3 cm. PERICARDIUM: There is no pericardial effusion. CONCLUSIONS: -Two-dimensional transthoracic echocardiography was performed usingstandard views & projections with M-mode and Doppler (continuous, pulsedwave, spectral & color flow). -The left ventricle is normal in size. There is no left ventricularhypertrophy. Left ventricular systolic function is normal. EF = 61% (2Dbiplane) All scored segments are normal. -The right ventricle is normal in size. Right ventricular systolicfunction is normal. The estimated right ventricular systolic pressure is23.0 mmHg plus the right atrial pressure. -There is a Poly 3 prosthetic valve present in the aortic valve position(size #29) that appears well seated. S/P transcatheter aortic valvereplacement. There is aortic valve stenosis. The peak gradient is 18 mmHg(peak velocity = 2.1 m/s). The mean gradient is 10 mmHg. AV area is 1.57cm (Indexed area: 0.68 cm /m ). The dimensionless valve index is 0.41.The LVOT stroke volume index is 34.4 ml/m . There is trivial aortic valveregurgitation. - -No significant other valvular abnormalities. -Normal atria and aorta. -Compared to prior echo performed on 01/27/2019 there is no significantchange. . Final Roxann Mercado STRETCH PRESS OPERATOR, TIMBER MANAGEMENT TECHNICIAN ECHO ORDERABLES Fin al Result documented in this encounter Visit Diagnoses Diagnosis S/P TAVR (transcatheter aortic valve replacement) S/P TAVR (transcatheter aortic valve replacement) documented in this encounter Additional Health Concerns Infection Onset Date Last Indicated Resolved Time COVID-19 Comment:Tested + on 09/0109/01/2020 09/05/2020 09/25/2020 12: 31 AM SUPERINTENDENT POLICE documented as of this encounter Care Teams Installation Engineer Relationship Specialty Start Date End Date Juan Laguerre MD [address] [facility] [address] [place] [address] [id number] PCP - General Family Medicine 01/02/18 Aubrey Crabtree III, MD [address] [facility] [address] [place] [address] Hematology and Medical Oncology 10/01/18 Jaki Nieves, PhD [address] [facility] [address] [place] [address] Genetic Counseling 11/27/18 documented as of this encounter
--- OUTSIDE RECORDS SUMMARY | 2025-08-09 09:31 | XMS_ITS | Encounter Summary ---
Author Organization [facility] Address [address] [place] [address] Care Team Providers Care Electric Deicer Assembler Name Role Phone Juan Laguerre MD Primary Care Provider [phone] Bro AWAN MD, Aubrey Lane Unavailable [phone] Jaki Nieves PhD Unavailable [phone] Source Comments In the event that this is information that is protected by federal Confidentiality of Substance User Disorder Patient Records, 42 CFR Part 2 prohibits the unauthorized disclosure of these records.[facility] Encounter Details Date Type Department Care Team (Late Contact Info) Description 02/11/2023 Orders Only [place] Transplant Surgery [address] [facility], 19th Floor [address] [place] [address] Kristel Chisholm RN Social History Tobacco Use [...] [address] [facility], 19th Floor [address] [place] [address] Apt confirmed-EH documented as of this encounter Visit Diagnoses Diagnosis 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 transplant documented in this encounter Care Teams Electric Deicer Assembler Relationship Specialty Start Date End Date Juan Laguerre MD [address] [facility] [address] [place] [address] PCP - General Family Medicine 01/02/18 Aubrey Crabtree III, MD [address] [facility] [address] [place] [address] Hematology and Medical Oncology 10/01/18 Jaki Nieves, PhD [address] [facility] [address] [place] [address] Genetic Counseling 11/27/18 documented as of this encounter
--- OUTSIDE RECORDS SUMMARY | 2025-08-09 09:31 | XMS_ITS | Encounter Summary ---
Author Organization [facility] Address [address] [place] [address] Care Team Providers Care Compensation Specialist Name Role Phone Juan Laguerre MD Primary Care Provider [phone] Bro AWAN MD, Aubrey Lane Unavailable [phone] Jaki Nieves PhD Unavailable [phone] Source Comments In the event that this is information that is protected by federal Confidentiality of Substance User Disorder Patient Records, 42 CFR Part 2 prohibits the unauthorized disclosure of these records.[facility] Encounter Details Date Type Department Care Team (Late Contact Info) Description 12/25/2018 Procedure Pass [place] Cardiology [address] [place] [address] Social History Tobacco Use Types Packs/Day Years [...] Upcoming Encounters Date Type Department Care Team ([facility] Contact Info) Description 07/15/2026 1:00 PM CDT Office Visit [place] Transplant Surgery [address], 19th [address] [place] [address] Apt confirmed-EH documented as of this encounter Visit Diagnoses Not on filedocumented in this encounter Additional Health Concerns Infection Onset Date Last Indicated Resolved Time COVID-19 Comment:Tested + on 09/0109/01/2020 09/05/2020 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
--- OUTSIDE RECORDS SUMMARY | 2025-08-09 09:31 | XMS_ITS | Encounter Summary ---
Author Organization [facility] Address [address] [place] [address] Care Team Providers Care Customer Services Manager Name Role Phone Juan Laguerre MD Primary Care Provider [phone] Bro AWAN MD, Aubrey Lane Unavailable [phone] Jaki Nieves PhD Unavailable [phone] Source Comments In the event that this is information that is protected by federal Confidentiality of Substance User Disorder Patient Records, 42 CFR Part 2 prohibits the unauthorized disclosure of these records.[facility] Encounter Details Date Type Department Care Team (Late Contact Info) Description 02/24/2024 Orders Only [place] Transplant Surgery [address] [facility], 19th [address] [place] [address] Delaney Gallegos Social History Tobacco Use Types [...] Office Visit [place] Transplant Surgery [address] [facility], 19th [address] [place], [place] [address] Apt confirmed-EH documented as of this encounter Visit Diagnoses Diagnosis Kidney replaced by transplant documented in this encounter Care Teams Customer Services Manager Relationship Specialty Start Date End Date Juan Laguerre MD [address] [facility] [address] [place], [place] [id number] PCP - General Family Medicine 01/02/18 Aubrey Crabtree III, MD [address] [facility] [address] [place], [place] [phone] Hematology and Medical Oncology 10/01/18 Jaki Nieves, PhD [address] [facility] [address] [place], [place] [address] Genetic Counseling 11/27/18 documented as of this encounter
--- OUTSIDE RECORDS SUMMARY | 2025-08-09 09:31 | XMS_ITS | Encounter Summary ---
Author Organization [facility] Address [address] [place] [address] Care Team Providers Care Upper Stitcher Name Role Phone Juan Laguerre MD Primary Care Provider [phone] Bro AWAN MD, Aubrey Lane Unavailable [phone] Jaki Nieves PhD Unavailable [phone] Source Comments In the event that this is information that is protected by federal Confidentiality of Substance User Disorder Patient Records, 42 CFR Part 2 prohibits the unauthorized disclosure of these records.[facility] Encounter Details Date Type Department Care Team (Late st Contact Info) Description 10/21/2023 Orders Only [place] Transplant Surgery [address] [facility], 19th Floor [address] [place], [place] [address] Cathleen Gallegos MD [address] [facility] [address] [address] Social History Tobacco Use Types Packs/Day Years [...] [facility], 19th Floor [address] [place], [place] [address] Apt confirmed-EH documented as of this encounter Visit Diagnoses Diagnosis Kidney replaced by transplant documented in this encounter Care Teams Upper Stitcher Relationship Specialty Start Date End Date Juan Laguerre MD [address] [facility] [address] [place] [address] PCP - General Family Medicine 01/02/18 Aubrey Crabtree III, MD [address] [facility] [address] [place] [address] Hematology and Medical Oncology 10/01/18 Jaki Nieves, PhD [address] [facility] [address] [place], [place] [address] Genetic Counseling 11/27/18 documented as of this encounter
--- OUTSIDE RECORDS SUMMARY | 2025-08-09 09:31 | XMS_ITS | Encounter Summary ---
Author Organization [facility] Address [address] [place] [address] Care Team Providers Care Car Mechanic Name Role Phone Juan Laguerre MD Primary Care Provider [phone] Bro AWAN MD, Aubrey Lane Unavailable [phone] Jaki Nieves PhD Unavailable [phone] Source Comments In the event that this is information that is protected by federal Confidentiality of Substance User Disorder Patient Records, 42 CFR Part 2 prohibits the unauthorized disclosure of these records.[facility] Encounter Details Date Type Department Care Team (Late st Contact Info) Description 10/28/2023 Orders Only [place] Transplant Surgery [address] [facility], 19th [address] [place], [place] [address] Cathleen Gallegos MD [address] [facility] [address] [address] Social History Tobacco Use Types Packs/Day Years [...] Office Visit [place] Transplant Surgery [address] [facility], 19th [address] [place] [address] Apt confirmed-EH documented as of this encounter Procedures Procedure Name Priority Date/Time Associated Diagnosis Comments EVEROLIMUS LEVEL Routine 11/28/2023 8:40 AM INVESTMENT BANKING ASSOCIATE OP URINALYSIS WITH MICROSCOPIC, REFLEX TO CULTURE Routine 11/28/2023 8:40 AM INVESTMENT BANKING ASSOCIATE documented in this encounter Results * Everolimus Level (11/28/2023 8:40 AM INVESTMENT BANKING ASSOCIATE) Everolimus Level - External 4.1 EXTERNAL LAB 11/28/2023 8:40 AM INVESTMENT BANKING ASSOCIATE Narrative EXTERNAL LAB - 12/18/2023 8:42 AM INVESTMENT BANKING ASSOCIATE Verified by Koki Burks on 12/18/2023. us Noe Keyes MD CHEMISTRY ORDERABLES Final R esult EXTERNAL LAB * Urinalysis w/Microscopic, reflex culture (11/28/2023 8:40 AM INVESTMENT BANKING ASSOCIATE) UA Color - External YELLOW YELLOW EXTERNAL LAB UA Appearance - External CLEAR CLEAR EXTERNAL LAB Specific [place], Urine - External 1.020 1.001 - 1.035 EXTERNAL LAB UA pH - External 5.5 5.0 - 8.0 EXTERNAL LAB UA Glucose - External 3+ NEGATIVE EXTERNAL LAB UA Bilirubin - External NEGATIVE NEGATIVE EXTERNAL LAB UA Ketones - External NEGATIVE NEGATIVE EXTERNAL LAB UA Blood - External NEGATIVE NEGATIVE EXTERNAL LAB UA Protein - External 1+ NEGATIVE EXTERNAL LAB UA Nitrate - External NEGATIVE NEGATIVE EXTERNAL LAB UA Leukocyte Esterase - External NEGATIVE NEGATIVE EXTERNAL LAB UA WBC - External NONE SEEN <=5 /HPF EXTERNAL LAB UA RBC - External NONE SEEN <=2 /HPF EXTERNAL LAB UA Squamous Epithelial Cells - External NONE SEEN /HPF EXTERNAL LAB UA Bacteria - External NONE SEEN NONE SEEN /HPF EXTERNAL LAB UA Hyaline Cast - External 0-5 NONE SEEN /LPF EXTERNAL LAB 11/28/2023 8:40 AM INVESTMENT BANKING ASSOCIATE Narrative EXTERNAL LAB - 12/18/2023 8:42 AM INVESTMENT BANKING ASSOCIATE Verified by Koki Burks on 12/18/2023. us Noe Keyes MD URINE ORDERABLES Final Resul t EXTERNAL LAB documented in this encounter Visit Diagnoses Diagnosis Kidney replaced by transplant documented in this encounter Care Teams Car Mechanic Relationship Specialty Start Date End Date Juan Laguerre MD [address] [facility] [address], [place] [address] PCP - General Family Medicine 01/02/18 Aubrey Crabtree III, MD [address] [facility] [address] [place], [place] [phone] Hematology and Medical Oncology 10/01/18 Jaki Nieves, PhD [address] [facility] [address] [place] [address] Genetic Counseling 11/27/18 documented as of this encounter
--- OUTSIDE RECORDS SUMMARY | 2025-08-09 09:31 | XMS_ITS | Encounter Summary ---
Author Organization [facility] Address [address] [place] [address] Care Team Providers Care Kindergarten Tutor Name Role Phone Juan Laguerre MD Primary Care Provider [phone] Bro AWAN MD, Aubrey Lane Unavailable [phone] Jaki Nieves PhD Unavailable [phone] Source Comments In the event that this is information that is protected by federal Confidentiality of Substance User Disorder Patient Records, 42 CFR Part 2 prohibits the unauthorized disclosure of these records.[facility] Encounter Details Date Type Department Care Team (Late Contact Info) Description 03/30/2019 Orders Only NM Transplant Surgery [address] [facility], 19th Floor [address] [place] [address] Cara Cook RN Social History Tobacco Use [...] [address], [address] [place] [address] Apt confirmed-EH documented as of this encounter Procedures Procedure Name Priority Date/Time Associated Diagnosis Comments TACROLIMUS Routine 03/27/2019 5:50 AM CDT BILIRUBIN DIRECT Routine 03/27/2019 5:50 AM CDT documented in this encounter Results * Tacrolimus (03/27/2019 5:50 AM CDT) Tacrolimus (FK506), Blood - External 3.6 ng/mL EXTERNAL LAB 03/27/2019 5:50 AM CDT Narrative EXTERNAL LAB - 04/01/2019 11:06 AM CDT Verified by Monie Siddiqui on 04/01/2019. Cathleen Gallegos MD CHEMISTRY ORDERABLES Final Resul t EXTERNAL LAB * Bilirubin, Direct (03/27/2019 5:50 AM CDT) Direct Bilirubin - External 0.2 0.0 - 0.3 mg/dL EXTERNAL LAB 03/27/2019 5:50 AM CDT Narrative EXTERNAL LAB - 03/28/2019 10:16 AM CDT Verified by Monie Siddiqui on 03/28/2019. 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
--- OUTSIDE RECORDS SUMMARY | 2025-08-09 09:31 | XMS_ITS | Encounter Summary ---
Author Organization [facility] Address [address] [place] [address] Care Team Providers Care Maths Tutor Name Role Phone Juan Laguerre MD Primary Care Provider [phone] Bro AWAN MD, Aubrey Lane Unavailable [phone] Jaki Nieves PhD Unavailable [phone] Source Comments In the event that this is information that is protected by federal Confidentiality of Substance User Disorder Patient Records, 42 CFR Part 2 prohibits the unauthorized disclosure of these records.[facility] Encounter Details Date Type Department Care Team (Late st Contact Info) Description 03/18/2023 Orders Only NM Transplant Surgery [address] [facility], [address]th [address] [place], [place] [address] Cathleen Gallegos MD [address] [facility] [address], [place] [address] Social History Tobacco Use Types Packs/Day Years [...] Office Visit NM Transplant Surgery [address] [facility], [address]th [address] [place] [address] Apt confirmed-EH documented as of this encounter Visit Diagnoses Diagnosis Kidney transplant 01/02/2008 documented in this encounter Care Teams Maths Tutor Relationship Specialty Start Date End Date Juan Laguerre MD [address] [facility] [address] [place], [place] [address] PCP - General Family Medicine 01/02/18 Aubrey Crabtree III, MD [address] [facility] [address] [place] [address] Hematology and Medical Oncology 10/01/18 Jaki Nieves, PhD [address] [facility] [address] [place], [place] [id number] Genetic Counseling 11/27/18 documented as of this encounter
--- OUTSIDE RECORDS SUMMARY | 2025-08-09 09:31 | XMS_ITS | Encounter Summary ---
Author Organization [facility] Address [address] [place] [address] Care Team Providers Care Electrical Instrumentation Technician Name Role Phone Juan Laguerre MD Primary Care Provider [phone] Bro AWAN MD, Aubrey Lane Unavailable [phone] Jaki Nieves PhD Unavailable [phone] Source Comments In the event that this is information that is protected by federal Confidentiality of Substance User Disorder Patient Records, 42 CFR Part 2 prohibits the unauthorized disclosure of these records.[facility] Encounter Details Date Type Department Care Team (Late st Contact Info) Description 03/09/2019 Orders Only NM Transplant Surgery [address] [facility], [address]th [address] [place], [place] [address] Cathleen Gallegos MD [address] [facility] [address] [address] Social History Tobacco Use Types Packs/Day Years [...] [address] [facility], [address]th Floor [address] [place] [address] Apt confirmed-EH documented as of this encounter Procedures Procedure Name Priority Date/Time Associated Diagnosis Comments CBC AND DIFFERENTIAL Routine 03/12/2019 8:36 AM CDT BILIRUBIN DIRECT Routine 03/12/2019 8:36 AM CDT COMPREHENSIVE METABOLIC PANEL Routine 03/12/2019 8:36 AM CDT documented in this encounter Results * (ABNORMAL) Comp Metabolic Panel (03/12/2019 8:36 AM CDT) Glucose - External 221(H) 70 - 105 mg/dL EXTERNAL LAB Urea Nitrogen - External 27(H) 7 - 25 mg/dL EXTERNAL LAB Creatinine - External 1.5(H) 0.7 - 1.3 mg/dL EXTERNAL LAB Sodium - External 133(L) 136 - 145 mEq/L EXTERNAL LAB Potassium - External 5.4(H) 3.5 - 5.1 mEq/L EXTERNAL LAB Chloride - External 103 98 - 107 mEq/L EXTERNAL LAB CO2 - External 24 EXTERNAL LAB Total Bilirubin - External 0.3 0.3 - 1.0 mg/dL EXTERNAL LAB Alkaline Phos - External 80 34 - 104 U/L EXTERNAL LAB AST (SGOT) - External 14 13 - 39 U/L EXTERNAL LAB ALT (SGPT) - External 10 7 - 52 U/L EXTERNAL LAB Total Protein - External 6.8 6.4 - 8.9 g/dL EXTERNAL LAB Albumin - External 3.8 3.5 - 5.7 g/dL EXTERNAL LAB Calcium - External 8.9 8.6 - 10.3 mg/dL EXTERNAL LAB Anion Gap - External 11.4 7.0 - 15.0 mEq/L EXTERNAL LAB GFR(Others) - External 48(L) >60.0 ml/min EXTERNAL LAB GFR() - External 58.1(L) >60.0 ml/min EXTERNAL LAB 03/12/2019 8:36 AM CDT Narrative EXTERNAL LAB - 04/04/2019 11:09 AM CDT Verified by Monie Siddiqui on 04/04/2019. Noe Keyes MD CHEMISTRY ORDERABLES Final R esult EXTERNAL LAB * (ABNORMAL) CBC with Differential (03/12/2019 8:36 AM CDT) Red Blood Cells - External 4.68 EXTERNAL LAB Hemoglobin - External 12.2 EXTERNAL LAB Hematocrit - External 39.1 EXTERNAL LAB MCV - External 84 EXTERNAL LAB White Blood Cells - External 8.4 4.0 - 10.0 uL EXTERNAL LAB MCH - External 26.1 EXTERNAL LAB MCHC - External 31.2(L) 32.2 - 36.5 g/dL EXTERNAL LAB RDW - External 28.7(H) 6 - 14.4 % EXTERNAL LAB Platelets - External 257(H) 0 - 1 % EXTERNAL LAB Neutrophils Abs (k/uL) - External 4,106 cells/uL EXTERNAL LAB Lymph Absolute - External 3,101 cells/uL EXTERNAL LAB Murray Absolute - External 838 cells/uL EXTERNAL LAB - External 168 0 - 300 cells/uL EXTERNAL LAB Basophil Absolute - External 168(H) 0 - 100 cells/uL EXTERNAL LAB Neutrophils - External 49 EXTERNAL LAB Lymphocytes - External 37 19 - 40 % EXTERNAL LAB Monocytes - External 10 4 - 12 % EXTERNAL LAB Eosinophils - External 2 0 - 3 % EXTERNAL LAB Basophils - External 2(H) 0 - 1 % EXTERNAL LAB 03/12/2019 8:36 AM CDT Narrative EXTERNAL LAB - 04/04/2019 11:09 AM CDT Verified by Monie Siddiqui on 04/04/2019. Noe Keyes MD HEMATOLOGY ORDERABLES Final Result EXTERNAL LAB * Bilirubin, Direct (03/12/2019 8:36 AM CDT) Direct Bilirubin - External 0.07 0.03 - 0.18 mg/dL EXTERNAL LAB 03/12/2019 8:36 AM CDT Narrative EXTERNAL LAB - 04/04/2019 11:09 AM CDT Verified by Monie Siddiqui on 04/04/2019. us Noe Keyes MD CHEMISTRY ORDERABLES Final R esult EXTERNAL LAB documented in this encounter Visit Diagnoses Diagnosis Kidney transplant 01/02/2008 Liver transplant 01/02/2008 Liver replaced by transplant documented in this encounter Additional Health Concerns Infection Onset Date Last Indicated Resolved Time COVID-19 Comment:Tested + on 09/0109/01/2020 09/05/2020 09/25/2020 12: 31 AM PLANT GUIDE documented as of this encounter Care Teams Electrical Instrumentation Technician Relationship Specialty Start Date End Date Juan Laguerre MD [address] [facility] [address] [place] [address] PCP - General Family Medicine 01/02/18 Aubrey Crabtree III, MD [address] [facility] [address] [place] [address] Hematology and Medical Oncology 10/01/18 Jaki Nieves, PhD [address] [facility] [address] [place] [address] Genetic Counseling 11/27/18 documented as of this encounter
--- OUTSIDE RECORDS SUMMARY | 2025-08-09 09:31 | XMS_ITS | Encounter Summary ---
Author Organization [facility] Address [address] [place] [address] Care Team Providers Care Chucking Machine Operator Name Role Phone Juan Laguerre MD Primary Care Provider [phone] Bro AWAN MD, Aubrey Lane Unavailable [phone] Jaki Nieves PhD Unavailable [phone] Source Comments In the event that this is information that is protected by federal Confidentiality of Substance User Disorder Patient Records, 42 CFR Part 2 prohibits the unauthorized disclosure of these records.[facility] Encounter Details Date Type Department Care Team (Late st Contact Info) Description 11/18/2018 Orders Only NM Transplant Surgery [address] [facility], [address]th [address] [place], [place] [address] Noe Keyes MD [address] [facility] [address], [place] [address] Social History Tobacco Use Types Packs/Day Years [...] 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 [address] [place] [address] Genetic Counseling 11/27/18 documented as of this encounter
--- OUTSIDE RECORDS SUMMARY | 2025-08-09 09:31 | XMS_ITS | Encounter Summary ---
Author Organization [facility] Address [address] [place] [address] Care Team Providers Care Console Operator Name Role Phone Juan Laguerre MD Primary Care Provider [phone] Bro AWAN MD, Aubrey Lane Unavailable [phone] Jaki Nieves PhD Unavailable [phone] Source Comments In the event that this is information that is protected by federal Confidentiality of Substance User Disorder Patient Records, 42 CFR Part 2 prohibits the unauthorized disclosure of these records.[facility] Encounter Details Date Type Department Care Team (Late Contact Info) Description 02/02/2019 Orders Only NM Transplant Surgery [address] [facility], 19th [address] [place] [address] Cara Cook RN Social History Tobacco Use [...] [address], [address] [place] [address] Apt confirmed-EH documented as of this encounter Procedures Procedure Name Priority Date/Time Associated Diagnosis Comments TACROLIMUS Routine 02/20/2019 6:34 AM CDT BK VIRUS QUANT VIRAL LOAD, URINE Routine 02/20/2019 6:34 AM CDT BK VIRUS DNA QUANT PCR, BLOOD Routine 02/20/2019 6:34 AM CDT TRANSFERRIN Routine 02/20/2019 6:34 AM CDT FOLATE Routine 02/20/2019 6:34 AM CDT VITAMIN B12 Routine 02/20/2019 6:34 AM CDT TACROLIMUS Routine 02/13/2019 6:21 AM CDT BK VIRUS DNA QUANT PCR, BLOOD Routine 02/13/2019 6:21 AM CDT TRANSFERRIN Routine 02/13/2019 6:21 AM CDT FOLATE Routine 02/13/2019 6:21 AM CDT VITAMIN B12 Routine 02/13/2019 6:21 AM CDT TACROLIMUS Routine 02/06/2019 5:30 AM CDT BK VIRUS QUANT VIRAL LOAD, URINE Routine 02/06/2019 5:30 AM CDT BK VIRUS QUANT VIRAL LOAD, URINE Routine 02/06/2019 5:30 AM CDT MYCOPHENOLIC ACID Routine 02/06/2019 5:3 0 AM CDT PROTEIN/CREAT RATIO, RANDOM URINE Routine 02/06/2019 5:30 AM CDT BK VIRUS DNA QUANT PCR, BLOOD Routine 02/06/2019 5:30 AM CDT URINALYSIS WITH MICROSCOPIC Routine 02/06/2019 5:30 AM CDT CBC AND DIFFERENTIAL Routine 02/06/2019 5:30 AM CDT TRANSFERRIN Routine 02/06/2019 5:30 AM CDT FOLATE Routine 02/06/2019 5:30 AM CDT VITAMIN B12 Routine 02/06/2019 5:30 AM CDT COMPREHENSIVE METABOLIC PANEL Routine 02/06/2019 5:30 AM CDT documented in this encounter Results * BK Virus DNA Quant PCR, Blood (02/20/2019 6:34 AM CDT) BK Virus DNA, Qn PCR - External DET EXTERNAL LAB 02/20/2019 6:34 AM CDT Narrative EXTERNAL LAB - 02/28/2019 9:28 AM CDT Verified by Monie Siddiqui on 02/28/2019. Tawnya Peck MD IMMUNOLOGY ORDERABL ES Final Result EXTERNAL LAB * BK Virus Quant Viral Load, Urine (02/20/2019 6:34 AM CDT) BK Quantitation Urine - External 204,000 EXTERNAL LAB 02/20/2019 6:34 AM CDT Narrative EXTERNAL LAB - 02/28/2019 9:28 AM CDT Verified by Monie Siddiqui on 02/28/2019. Tawnya Peck MD URINE ORDERABLES Fi nal Result EXTERNAL LAB * (ABNORMAL) Vitamin B12 (02/20/2019 6:34 AM CDT) Vitamin B12 - External 1,221(H) 200 - 900 pg/mL EXTERNAL LAB 02/20/2019 6:34 AM CDT Narrative EXTERNAL LAB - 02/28/2019 9:28 AM CDT Verified by Monie Siddiqui on 02/28/2019. Tawnya Peck MD CHEMISTRY ORDERABLE S Final Result Performing Organization Address City/[facility]/ZIP Co de Phone Number EXTERNAL LAB * Transferrin (02/20/2019 6:34 AM CDT) Transferrin - External 272 200 - 360 mg/dL EXTERNAL LAB 02/20/2019 6:34 AM CDT Narrative EXTERNAL LAB - 02/28/2019 9:28 AM CDT Verified by Monie Siddiqui on 02/28/2019. Tawnya Peck MD CHEMISTRY ORDERABLE S Final Result Performing Organization Address [facility] de Phone Number EXTERNAL LAB * Folate (02/20/2019 6:34 AM CDT) Folate, Serum - External 16.7 5.5 - 17.5 ng/mL EXTERNAL LAB 02/20/2019 6:34 AM CDT Narrative EXTERNAL LAB - 02/28/2019 9:28 AM CDT Verified by Monie Siddiqui on 02/28/2019. Tawnya Pekc MD CHEMISTRY ORDERABLE S Final Result Performing Organization Address City/[facility] Co de Phone Number EXTERNAL LAB * Tacrolimus (02/20/2019 6:34 AM CDT) Tacrolimus (FK506), Blood - External 4.1 ng/ML EXTERNAL LAB 02/20/2019 6:34 AM CDT Narrative EXTERNAL LAB - 02/23/2019 9:29 AM CDT Verified by Koki Burks on 02/23/2019. Physician Non-Staff CHEMISTRY ORDERABLES Final R esult EXTERNAL LAB * Folate (02/13/2019 6:21 AM CDT) Folate, Serum - External 12.8 5.5 - 17.5 ng/mL EXTERNAL LAB 02/13/2019 6:21 AM CDT Narrative EXTERNAL LAB - 02/17/2019 9:12 AM CDT Verified by Monie Siddiqui on 02/17/2019. Tawnya Peck MD CHEMISTRY ORDERABLE S Final Result Performing Organization Address City/[facility]/ZIP Co de Phone Number EXTERNAL LAB * BK Virus DNA Quant PCR, Blood (02/13/2019 6:21 AM CDT) BK Virus DNA, Qn PCR - External DETECTED EXTERNAL LAB 02/13/2019 6:21 AM CDT Narrative EXTERNAL LAB - 02/17/2019 9:12 AM CDT Verified by Monie Siddiqui on 02/17/2019. Tawnya Peck MD IMMUNOLOGY ORDERABL ES Final Result Performing Organization Address City/[facility] Co de Phone Number EXTERNAL LAB * Vitamin B12 (02/13/2019 6:21 AM CDT) Vitamin B12 - External 919 EXTERNAL LAB 02/13/2019 6:21 AM CDT Narrative EXTERNAL LAB - 02/17/2019 9:12 AM CDT Verified by Moine Siddiqui on 02/17/2019. Tawnya Peck MD CHEMISTRY ORDERABLE S Final Result EXTERNAL LAB * Transferrin (02/13/2019 6:21 AM CDT) Transferrin - External 293 200 - 360 mg/dL EXTERNAL LAB 02/13/2019 6:21 AM CDT Narrative EXTERNAL LAB - 02/17/2019 9:12 AM CDT Verified by Monie Siddiqui on 02/17/2019. Tawnya Peck MD CHEMISTRY ORDERABLE S Final Result EXTERNAL LAB * Tacrolimus (02/13/2019 6:21 AM CDT) Tacrolimus (FK506), Blood - External 4.5 EXTERNAL LAB 02/13/2019 6:21 AM CDT Narrative EXTERNAL LAB - 02/16/2019 11:01 AM CDT Verified by Koki Burks on 02/16/2019. Noe Keyes MD CHEMISTRY ORDERABLES Final R esult Performing Organization Address City/[facility]/ZIP Co de Phone Number EXTERNAL LAB * BK Virus DNA Quant PCR, Blood (02/06/2019 5:30 AM CDT) BK Virus DNA, Qn PCR - External NOT DET EXTERNAL LAB 02/06/2019 5:30 AM CDT Narrative EXTERNAL LAB - 02/14/2019 2:10 AM CDT Verified by Monie Siddiqui on 02/14/2019. Tawnya Peck MD IMMUNOLOGY ORDERABL ES Final Result Performing Organization Address City/[facility]/ZIP Co de Phone Number EXTERNAL LAB * BK Virus Quant Viral Load, Urine (02/06/2019 5:30 AM CDT) BK Quantitation Urine - External 77,800 EXTERNAL LAB 02/06/2019 5:30 AM CDT Narrative EXTERNAL LAB - 02/14/2019 2:10 AM CDT Verified by Monie Siddiqui on 02/14/2019. Tawnya Peck MD URINE ORDERABLES Fi nal Result Performing Organization Address City/[facility]/ZIP Co de Phone Number EXTERNAL LAB * Mycophenolic Acid (02/06/2019 5:30 AM CDT) Pathologist [facility] Mycophenolic Acid - External 2.1 1.0 - 3.5 EXTERNAL LAB 02/06/2019 5:30 AM CDT Narrative EXTERNAL LAB - 02/10/2019 1:17 PM CDT Verified by Monie Siddiqui on 02/10/2019. Noe Keyes MD CHEMISTRY ORDERABLES Final R esult EXTERNAL LAB * BK Virus Quant Viral Load, Urine (02/06/2019 5:30 AM CDT) [facility] BK Quantitation Urine - External 307,000 EXTERNAL LAB 02/06/2019 5:30 AM CDT Narrative EXTERNAL LAB - 02/10/2019 9:46 AM CDT Verified by Monie Siddiqui on 02/10/2019. Tawnya Peck MD URINE ORDERABLES Fi nal Result Performing Organization Address [facility]/ZIP Co de Phone Number EXTERNAL LAB * Vitamin B12 (02/06/2019 5:30 AM CDT) [facility] Vitamin B12 - External 739 200 - 900 pg/mL EXTERNAL LAB 02/06/2019 5:30 AM CDT Narrative EXTERNAL LAB - 02/10/2019 9:46 AM CDT Verified by Monie Siddiqui on 02/10/2019. Tawnya Peck MD CHEMISTRY ORDERABLE S Final Result Performing Organization Address City/[facility]/ZIP Co de Phone Number EXTERNAL LAB * Transferrin (02/06/2019 5:30 AM CDT) [facility] Transferrin - External 256 200 - 360 mg/dL EXTERNAL LAB 02/06/2019 5:30 AM CDT Narrative EXTERNAL LAB - 02/10/2019 9:46 AM CDT Verified by Monie Siddiqui on 02/10/2019. Tawnya Peck MD CHEMISTRY ORDERABLE S Final Result Performing Organization Address City/[facility]/ZIP Co de Phone Number EXTERNAL LAB * Folate (02/06/2019 5:30 AM CDT) Folate, Serum - External 9.5 5.5 - 17.5 ng/ml EXTERNAL LAB 02/06/2019 5:30 AM CDT Narrative EXTERNAL LAB - 02/10/2019 9:46 AM CDT Verified by Monie Siddiqui on 02/10/2019. Tawnya Peck MD CHEMISTRY ORDERABLE S Final Result Performing Organization Address [facility] de Phone Number EXTERNAL LAB * Tacrolimus (02/06/2019 5:30 AM CDT) Pathologist [facility] Tacrolimus (FK506), Blood - External 3.4 EXTERNAL LAB 02/06/2019 5:30 AM CDT Narrative EXTERNAL LAB - 02/09/2019 10:13 AM CDT Verified by Galina Raza on 02/09/2019. Noe Keyes MD CHEMISTRY ORDERABLES Final R esult Performing Organization Address [facility] Co de Phone Number EXTERNAL LAB * (ABNORMAL) Comp Metabolic Panel (02/06/2019 5:30 AM CDT) Pathologist [facility] Sodium - External 135 133 - 145 EXTERNAL LAB Potassium - External 4.4 3.5 - 5.1 EXTERNAL LAB Chloride - External 103 92 - 332 EXTERNAL LAB CO2 - External 26 21 - 32 EXTERNAL LAB Anion Gap - External 10.4 10.0 - 20.0 EXTERNAL LAB Glucose - External 198(H) 70 - 105 EXTERNAL LAB Calcium - External 8.6 5.4 - 10.2 EXTERNAL LAB Urea Nitrogen - External 29 EXTERNAL LAB Creatinine - External 1.40 EXTERNAL LAB Total Protein - External 6.6 EXTERNAL LAB Albumin - External 3.2 EXTERNAL LAB Total Bilirubin - External 0.3 EXTERNAL LAB AST (SGOT) - External 14 EXTERNAL LAB ALT (SGPT) - External 18 EXTERNAL LAB Alkaline Phos - External 85 EXTERNAL LAB GFR() - External 57 EXTERNAL LAB GFR(Others) - External 49 EXTERNAL LAB 02/06/2019 5:30 AM CDT Narrative EXTERNAL LAB - 02/07/2019 6:43 AM CDT Verified by Monie Siddiqui on 02/07/2019. Noe Keyes MD CHEMISTRY ORDERABLES Final R esult EXTERNAL LAB * (ABNORMAL) CBC with Differential (02/06/2019 5:30 AM CDT) Neutrophils Abs (k/uL) - External 4.54 EXTERNAL LAB [place] Absolute - External 0.44 EXTERNAL LAB - External 0.07 EXTERNAL LAB Hemoglobin - External 10.7(L) EXTERNAL LAB Hematocrit - External 35.8 EXTERNAL LAB MCV - External 82.9 80.0 - 100.0 EXTERNAL LAB MCH - External 24.8 5 - 33.9 EXTERNAL LAB MCHC - External 29.9(L) EXTERNAL LAB Platelets - External 165 140 - 445 10(3)/mcL EXTERNAL LAB RDW - External 25.8 EXTERNAL LAB White Blood Cells - External 7.32 EXTERNAL LAB Red Blood Cells - External 4.32 EXTERNAL LAB Lymph Absolute - External 2.27 EXTERNAL LAB 02/06/2019 5:30 AM CDT Narrative EXTERNAL LAB - 02/07/2019 6:43 AM CDT Verified by Monie Siddiqui on 02/07/2019. Noe Keyes MD HEMATOLOGY ORDERABLES Final Result EXTERNAL LAB * Protein /Creatinine Ratio, Urine (02/06/2019 5:30 AM CDT) Urine Creatinine, Random - External 49 EXTERNAL LAB Protein, Urine - External 45.7 EXTERNAL LAB Prot/Creat Ratio - External 0.93 EXTERNAL LAB 02/06/2019 5:30 AM CDT Narrative EXTERNAL LAB - 02/06/2019 3:20 PM CDT Verified by Monie Siddiqui on 02/06/2019. Noe Keyes MD URINE ORDERABLES Final Resul t EXTERNAL LAB * (ABNORMAL) Urinalysis with Microscopic (02/06/2019 5:30 AM CDT) Specific [place], Urine - External 1.009 1.003 - 1.035 EXTERNAL LAB UA pH - External 6.5 EXTERNAL LAB UA Leukocyte Esterase - External Negative EXTERNAL LAB UA Nitrate - External Negative EXTERNAL LAB UA Protein - External 1+(A) Negative EXTERNAL LAB UA Glucose - External Negative Neg EXTERNAL LAB UA Ketones - External NEG Negative EXTERNAL LAB UA Blood - External NEG Negative EXTERNAL LAB UA Color - External Yellow Yellow EXTERNAL LAB UA Appearance - External Clear EXTERNAL LAB UA RBC - External 0-5 EXTERNAL LAB UA Yeast - External NONE SEEN NOne EXTERNAL LAB UA WBC - External 0-5 EXTERNAL LAB UA Urobilinogen - External <2.0 EXTERNAL LAB 02/06/2019 5:30 AM CDT Narrative EXTERNAL LAB - 02/06/2019 3:20 PM CDT Verified by Monie Siddiqui on 02/06/2019. 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
--- OUTSIDE RECORDS SUMMARY | 2025-08-09 09:31 | XMS_ITS | Encounter Summary ---
Author Organization [facility] Address [address] [place] [address] Care Team Providers Care Supervisor Nuclear Medicine Name Role Phone Juan Laguerre MD Primary Care Provider [phone] Bro AWAN MD, Aubrey Lane Unavailable [phone] Jaki Nieves PhD Unavailable [phone] Source Comments In the event that this is information that is protected by federal Confidentiality of Substance User Disorder Patient Records, 42 CFR Part 2 prohibits the unauthorized disclosure of these records.[facility] Encounter Details Date Type Department Care Team (Late st Contact Info) Description 03/16/2019 Orders Only NM Transplant Surgery [address] [facility], 19th Floor [address] [place], [place] [id number] Cathleen Gallegos MD [address] [facility] [address], [place] [address] Social History Tobacco Use Types Packs/Day Years [facility] [address] [place] [address] Apt confirmed-EH documented as of this encounter Procedures Procedure Name Priority Date/Time Associated Diagnosis Comments TACROLIMUS Routine 03/19/2019 9:59 AM CDT documented in this encounter Results * Tacrolimus (03/19/2019 9:59 AM CDT) Tacrolimus (FK506), Blood - External 3.0 2.0 - 20.0 NG/ML EXTERNAL LAB 03/19/2019 9:59 AM CDT Narrative EXTERNAL LAB - 03/25/2019 1:44 PM CDT Verified by Monie Siddiqui on 03/25/2019. 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
--- OUTSIDE RECORDS SUMMARY | 2025-08-09 09:31 | XMS_ITS | Clinical Summary ---
Author Organization [facility] MD Address [address] [place] [address] [place] [phone] Phone Care Team Providers Care Abrasive Grader Name Role Phone Juan Laguerre MD Primary Care Provider [phone] Rell Painting MD Unavailable [phone] Bro AWAN MD, Aubrey Ellis Unavailable [phone] Jez Denson MD Unavailable Cathleen Gallegos MD Unavailable Vikram Garza MD Unavailable Treva Edwards MD Unavailable [phone] Sanchez Bills DPM Unavailable [phone] Allergies Active Allergy Reactions Criticality Noted Date Comments Codeine Other (see Comments) Low Can't sleep Medications Pregabalin (LYRICA) 300 MG Capsule Take 1 Cap by mouth 2 times daily. 180 Cap 1 6 Active DULoxetine (CYMBALTA) [address] Kirsty cerda:Thrombocy topenia,Type 2 diabetes mellitus with diabetic polyneuropathy, with long-term current use of insulin,Maligna nt neoplasm of head of pancreas Take 120 mg by mouth every evening. Active pantoprazole (PROTONIX) 40 MG Tablet Delayed Response Take 40 mg by mouth every morning. Active Everolimus 0.5 MG Tablet Take by mouth 2 times daily Take three tablets by mouth twice a day Active magnesium oxide (MAG-OX) 400 MG Tablet Take 400 mg by mouth daily. Active mycophenolate (MYFORTIC) 180 MG Tablet Delayed Response Take 360 mg by mouth 2 times daily. Active insulin glargine (Lantus SoloStar) 100 UNIT/ML Solution Pen-injector 25 Units by Subcutaneous route nightly. 0 Active sulfamethoxazol e-trimethoprim (BACTRIM, SEPTRA) 400-80 MG Tablet TAKE 1 TABLET EVERY SATURDAY,SATURDAY , AND Saturday 0 Active B Complex Vitamins (B COMPLEX PO) Take 1 Tab by mouth daily. Active Cholecalciferol (Vitamin D3) 1000 UNIT Tablet Take 2 tablets twice daily (with breakfast and dinner) x 6 days 0 Active glucagon, rDNA, 1 MG Kit 0 Active Glucose Blood (OneTouch Ultra) Strip Test once daily 1 Active Eliquis 5 MG Tablet 2 Active Calcium Carbonate-Vit D-Min (Calcium 600+D Plus Minerals) 600-400 MG-UNIT Tablet Take 1 Tablet by mouth daily. Active Continuous Blood Gluc Sensor (FreeStyle Elizabeth 2 Sensor) [facility] USE DIRECTED. 2 Active GlucaGen HypoKit 1 MG Recon Soln 2 Active Gvoke HypoPen 2-Pack 0.5 MG/0.1ML Solution Auto-injector 2 Active Insulin Lispro (HumaLOG KwikPen) 200 UNIT/ML Solution Pen-injector by Subcutaneous route. 2 Active metoprolol Succinate (TOPROL-XL) 50 MG TABLET SR 24 HR 2 Active atorvastatin (LIPITOR) 40 MG Tablet Take 1 Tablet by mouth daily. 4 Active empagliflozin (JARDIANCE) 25 MG Tablet Take 1 Tablet by mouth daily. 4 Active tobramycin-dexa methasone (TOBRADEX) 0.3-0.1 % Suspension 4 Active Active Problems Problem Noted Date Diagnosed Date Encounter for colonoscopy due to history of colo jarek polyp 12/20/2021 Pneumonia due to COVID-19 virus 09/09/2020 Hyperkalemia 09/08/2020 Dehydration 09/08/2020 CRP elevated 09/08/2020 Depression with anxiety 09/08/2020 COVID-19 virus infection 09/08/2020 History of kidney transplant 09/08/2020 S/P foot surgery 04/20/2020 Paroxysmal atrial fibrillation 11/07/2018 Sepsis 11/02/2018 HCAP (healthcare-associated pneumonia) 8 Immunocompromised patient 11/02/2018 Anemia 11/02/2018 Rash 11/02/2018 Hyponatremia 11/02/2018 Stomatitis and mucositis 10/31/2018 Malignant neoplasm of head of pancreas 8 Cancer Staging:Clinical stage from 01/25/2019:Stage IB(cT2, cN0, cM0) - Signed by Aubrey Crabtree III, MD on 01/25/2019 Diabetic infection of right foot 08/02/2015 Chronic kidney disease, stage III (moderate) Syncope Cataract LVH (left ventricular hypertrophy) Obstructive sleep apnea Overview (08/02/2015): CPAP 15 cm H2O pressure Cytomegaloviral disease Erectile dysfunction Peripheral neuropathy, Severe Osteopenia Bilateral leg edema Hyperbilirubinemia Alcoholic liver disease Insulin dependent type 2 diabetes mellitus Hyperlipidemia Elevated LFTs Allergic rhinitis Insomnia Essential (primary) hypertension Acute anxiety Thrombocytopenia Sleep apnea Heart murmur Former smoker Overview (03/13/2016): quit 4 years ago, smoked 30 years 1PPD Resolved Problems Problem Noted Date Diagnosed Date Resolved Date Essential hypertension, benign 08/02/2015 Immunizations Immunization Administration Dates Next Due PUR FLU 3+ YRS PRES FREE QUAD IM 08/02/2015 Pneumococcal Vaccine Adult - 23 Valent 8 RSV, Recombinant, Protein Torres bunit Rsvpref, Adjuvant Recon (Arexvy) 07/23/2023 Zoster Vaccine Recombinant 03/19/2022,12/09/2021 Family History Medical History Relation Name Comments Cancer Father Breast Cancer Mother Ovarian Cancer Mother Anesthesia Problems Neg Hx Relation Name Status Comments Father Mother Social History Tobacco Use Types Packs/Day Years Used Date Smoking Tobacco: Former Cigarettes 1 30 0 06/15/1981 - 06/15/2011 Smokeless Tobacco: Never Tobacco Cessation:Counseling Given: Not Answered Alcohol Use Standard Drinks/Week Comments Not Currently 0 (1 standard drink = 0.6 oz pur e alcohol) PHQ-2 Answer Date Recorded Total Score - Questions 1-9 0 08/04 Sex and Gender Information Value Date Recorded Sex Assigned at Not on file Legal Sex Male 12:44 AM CDT Gender Identity Not on file Sexual Orientation Not on file Last Filed Vital Signs Vital Sign Reading Time Taken Comments Blood Pressure 112/70 08/18/2024 9:56 AM CDT Pulse 61 08/18/2024 9:56 AM CDT Temperature 36.5 C (97.7 F) 08/18/2024 9:56 AM CDT Respiratory Rate 18 08/18/2024 9:56 AM CDT Oxygen Saturation 95% 08/18/2024 9:56 AM CDT Inhaled Oxygen Concentration - - Weight 97.9 kg (215 lb 12.8 oz) 08/18/2024 9:56 AM CDT Height 182.9 cm (6') 08/18/2024 9:56 AM CDT Body Mass Index 29.27 08/18/2024 9:56 AM CDT Plan of Treatment Upcoming Encounters Date Type Department Care Team (Late st Contact Info) Description 08/10/2025 12:45 PM CDT Lab [facility] [address] [phone] Lab, [facility] 08/10/2025 1:00 PM CDT Ancillary Procedure [facility] [address] [address] 08/17/2025 9:00 AM CDT Office Visit [facility] [address] [address] Tyler Haile MD [address] [place] [address] Health Maintenance Due Date Last Done Comments Hepatitis C Virus (HCV) Screening 1960 Cologuard 2005 Immunochemical Fecal Occult Blood 2005 Diabetes: Foot Exam 07/17/2016 07/17/2015 Lung Cancer Screening 11/30/2019 11/30/2018 , 11/30/2018, 11/02/2018, Additional history exists Diabetes: Eye Exam 06/30/2025 06/30/2024, 0 03/03/2024, 08/15/2022, Additional history exists SARS-COV-2 Immunization (7 - Moderna risk season) 2025 09/07/2024, 07/23/2023, 08/23/2022, Additional history exists Diabetes: Nephropathy Screening 08/10/2025 08/10/2024, 07/16/2023, 12/18/2022, Additional history exists Diabetes: Hemoglobin A1c 01/10/2026 025, 05/11/2025, 01/04/2025, Additional history exists Colonoscopy 12/21/2031 12/21/2021, 06/15/2015 Colorectal Cancer Screening 12/21/2031 Meningococcal Immunization (ACWY) Aged Out 09/15/2018, 07/21/2018 No longer eligibl e based on patient's age to complete this topic Zoster Immunization Completed 03/19/2022, PSA Discussion Completed 09/11/2022, 02/2021, 06/22/2020 Respiratory Syncytial Virus (RSV) Immunization (Adult) Completed 07/23/2023 DTaP/Tdap/Td Immunization Discontinued 05/11/2025 Pneumococcal Immunization (50+ years) Completed 05/11/2025, 10/03/2018, 07/21/2018, Additional history exists Pneumococcal Immunization Combined Discontinued 05/11/2025, 10/03/2018, 07/21/2018, Additional history exists TdaP Immunization Completed 05/11/2025 Influenza Immunization Completed , 09/07/2024, 08/21/2024, Additional history exists Hepatitis B Immunization Aged Out No longer eligible based on patient's age to complete this topic Human Papillomavirus (HPV) Immunization Aged Out No longer eligible based on patient's age to complete this topic Rotavirus Immunization Aged Out No lo nger eligible based on patient's age to complete this topic Medical Devices Implanted Type Area Laundry Or Dry Cleaners Counter Clerk Device Identifier Shelf Expiration Date Model / Serial / Lot Bone Putty Allofuse 1cc [id number] - [id number] Implanted:Qty: 1 on 06/29/2020 by Sanchez Bills DPM at [facility] IMPLANT Right: Foot ALLOSODARIAN 01/23/2022 [id number] / / [id number] Heart Valve Implanted:Qty: 1 on 12/29/2018 Description:LAU DANNA 3 HEART VALVE 29 MM MR COND 1.5T NORMAL MODE Procedures Procedure Name Priority Date/Time Associated Diagnosis Comments CMP (COMPREHENSIVE METABOLIC PANEL) Routine 08/10/2024 9:24 AM CDT Malignant neoplasm of head of pancreas (HCC) 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 Liver transplant recipient (HCC) HEMOGLOBIN A1C W/ ESTIMATED GLUCOSE Routine 11/15/2022 9:54 AM ARRESTING GEAR OPERATOR Type 2 diabetes mellitus with complication (HCC) PSA SCREEN Routine 09/11/2022 6:10 AM ARRESTING GEAR OPERATOR Encounter for screening for malignant neoplasm of prostate Encounter for general adult medical examination without abnormal findings CT CHEST W/O CONTRAST STAT 11/02/2018 8:42 PM ARRESTING GEAR OPERATOR from Last 3 Months or Most Recently Relevant to Health Maintenance Results * (ABNORMAL) CMP (COMPREHENSIVE METABOLIC PANEL) (08/10/2024 9:24 AM CDT) Glucose 192(H) 70 - 105 mg/dL [facility] Blood Urea Nitrogen 31(H) 7 - 25 mg/dL [facility] Creatinine 1.6(H) 0.7 - 1.3 mg/dL [facility] Sodium 137 136 - 145 mEq/L [facility] Potassium 4.5 3.5 - 5.1 mEq/L [facility] Chloride 102 98 - 107 mEq/L [facility] Bicarbonate 27 21 - 31 mEq/L [facility] Total Bilirubin 0.6 0.3 - 1.0 mg/dL [facility] Alk. Phosphatase 77 34 - 104 U/L [facility] Aspartate Aminotransferase 13 13 - 39 U/L [facility] Alanine Aminotransferase 14 7 - 52 U/L [facility] IMPREGNATING TANK OPERATORCHI [facility] Total Protein 6.8 6.4 - 8.9 g/dL [facility] Albumin 3.7 3.5 - 5.7 g/dL [facility] Calcium 9.3 8.6 - 10.3 mg/dL [facility] Anion Gap 12.5 7.0 - 15.0 mEq/L [facility] Globulin 3.1 2.0 - 3.5 g/dL [facility] EGFR 48(L) >60 ml/min/1. 73m2 [facility] IMPREGNATING TANK OPERATORCHI [facility] Comment: This eGFR is calculated using 2020 CKD-EPI Creatinine equation without race modifier based on the NKF-ASN task force recommendations Blood 08/10/2024 9:24 AM CDT [facility] - 08/10/2024 10:45 AM CDT Release to patient->Immediate IS THE PATIENT REQUIRED TO BE FASTING FOR 8 HOURS?->No Aubrey Crabtree III, MD CHEMISTRY ORDERABLES Final Result [facility] Cancer Care [facility] [address] [place] [address], * (ABNORMAL) HEMOGLOBIN A1C W/ ESTIMATED GLUCOSE (11/15/2022 9:54 AM ARRESTING GEAR OPERATOR) HGB-A1C 9.5(H) 3.8 - 5.6 % 11/15/2022 11:51 AM ARRESTING GEAR OPERATOR [facility] Blood Venipuncture / Unknown 11/15/2022 9:54 AM ARRESTING GEAR OPERATOR 11/15/2022 10:05 AM ARRESTING GEAR OPERATOR [facility] - 11/15/2022 11:51 AM ARRESTING GEAR OPERATOR Per ADA recommendations, HbA1c <7% is the goal for glycemic control, >8% suggests additional action needed. (Siemens Dimension Steen HbA1c method) This assay measures any hemoglobin variants that are glycated at the beta-chain N-terminus and have epitopes identical to that of HbA1c. Hemoglobins D, C, E and S do not interfere with this method. Samples containing >10% Hemoglobin F will yield lower than expected results. The effect of other variant hemoglobins has not been assessed. On 05/16/20 - Assay was updated to meet future National Glycohemoglobin Standardization (NGSP) program certification. Reference ranges have been updated. us Cathleen Gallegos MD CHEMISTRY ORDERABLES Final Resul t Performing Organization Address [facility] [place] [address] * PSA SCREEN (09/11/2022 6:10 AM ARRESTING GEAR OPERATOR) PSA SCREEN, TOTAL 0.44 0.00 - 4.00 ng/mL 09/11/2022 9:02 AM ARRESTING GEAR OPERATOR [facility] Comment:Performed by chemilu minometric assay on the Siemens ADVIA Centaur. Values obtained with different methods cannot be used interchangeably for patient monitoring. PSA is not a specific test for prostatic carcinoma and can be elevated with benign prostatic disease or following prostatic manipulation. Heterophilic antibodies may interfere with this assay. Blood Venipuncture / Unknown 09/11/2022 6:10 AM ARRESTING GEAR OPERATOR 09/11/2022 7:14 AM ARRESTING GEAR OPERATOR Juan Laguerre MD CHEMISTRY ORDERABLES Final Resu lt Performing Organization Address [facility] [place] [address] * CT CHEST W/O CONTRAST (11/02/2018 8:42 PM ARRESTING GEAR OPERATOR) Anatomical Region Laterality Modality Chest N/A Computed Tomogra phy 11/02/2018 8:53 PM ARRESTING GEAR OPERATOR Narrative 11/04/2018 12:08 PM ARRESTING GEAR OPERATOR ORDERING PHYSICIAN Josi Rai DATE AND TIME OF DICTATION RADIOLOGIST 11/02/2018 20:53:41 Jennifer Bradford MD EXAM DESCRIPTION EXAMINATION CT of the chest without contrast. HISTORY A 57-year-old male presenting with hypotension and concern for sepsis. TECHNIQUE Multiple transaxial images of the chest were obtained without contrast according to a standard protocol. Coronal and sagittal reformats were created. A dose lowering technique was used for this procedure, which may include, but is not limited to, dose reduction techniques(s), automated exposure control technique(s), use of iterative reconstruction technique(s), and ALARA (as low as reasonably achievable) or ALARA/IMAGE Gently technique(s). A large template. COMPARISON August 20, 2018. FINDINGS CARDIOVASCULAR: Heart size is at the upper limits of normal. There are extensive atherosclerotic calcifications of the aortic valve. No pericardial effusion. Pulmonary arteries are normal in caliber. A port catheter tip terminates in the superior vena cava. PULMONARY: Mild centrilobular emphysematous changes are noted. There is a new nodular ground-glass infiltrate within in the posterior left upper lobe. Chronic parenchymal changes in the lung bases are again noted. No pneumothorax or pleural effusion is demonstrated. LYMPHATICS: Multiple prominent lymph nodes are seen within the mediastinum and right hilar region, some which are calcified. No significant change from the prior study. UPPER ABDOMEN: Postsurgical changes are noted in the pancreatic region. MUSCULOSKELETAL: No suspicious blastic or lytic osseous lesions are noted. IMPRESSION 1. Subtle nodular ground-glass infiltrate within in the left upper lobe. Findings are suggestive of an infectious or inflammatory process. Recommend followup following treatment. 2. 3. Edema and inflammatory changes are seen within the upper epigastric region, incompletely evaluated on this study. DICTATED BY: Jennifer Bradford MD DD/RITO /[id number] Josi Rai APRN, [place] IMG CT ORDERABLES Final Result from Last 3 Months or Most Recently Relevant to Health Maintenance Insurance [facility] Advance Directives * Full Code (Latest Code Status on File) Date Activated Date Inactivated Comments 09/08/2020 5:23 PM 09/12/2020 6:21 PM CPR-Full Joe atment: FULL ARREST: Attempt Resuscitation/CPR wit intubation and mechanical ventilation. PRE-ARREST: Use entire range of life support measures to stabilize the patient. Care Teams Abrasive Grader Relationship Specialty Start Date End Date Juan Laguerre MD [address] [place] [address] [place] [address] PCP - General Family Medicine 10/05/16 Rell Painting MD [address] [place], [place] [address] Consulting Physician General Surgery 10/22/18 Aubrey Crabtree III, MD [address] [facility] [address] [place] [address] Medical Oncologist Internal Medicine 11/06/18 Jez Denson MD [facility] [address] [facility] [address] Consulting Physician Cardiovascular Disease - Cardiology 01/19/19 Cathleen Gallegos MD [address] [address] Consulting Physician Nephrology 01/19/19 Vikram Garza MD [address] [id number] Consulting Physician Cardiovascular Disease - Cardiology 01/19/19 Treva Edwards MD [address] [place] [id number] Consulting Physician Internal Medicine 08/31/20 Sanchez Bills DPM [address] [facility] [address] [place] [address] Consulting Physician Podiatry 08/31/20
--- OUTSIDE RECORDS SUMMARY | 2025-08-09 09:32 | XMS_ITS | Encounter Summary ---
Author Organization [facility] Address [address] [place] [address] Care Team Providers Care Agricultural Scientist Name Role Phone Juan Laguerre MD Primary Care Provider [phone] Bro AWAN MD, Aubrey Lane Unavailable [phone] Jaki Nieves PhD Unavailable [phone] Source Comments In the event that this is information that is protected by federal Confidentiality of Substance User Disorder Patient Records, 42 CFR Part 2 prohibits the unauthorized disclosure of these records.[facility] Encounter Details Date Type Department Care Team (Late Contact Info) Description 11/16/2024 Orders Only NM Transplant Surgery [address] [facility] 19th [address] [place] [address] Joshua Bee RN Social History Tobacco Use Types Packs/Day [...] Office Visit [place] Transplant Surgery [address] [facility] [place], [place] [address] Apt confirmed-EH documented as of this encounter Visit Diagnoses Diagnosis 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 transplant Adenocarcinoma of pancreas (CMS-HCC) Malignant neoplasm of pancreas, part unspecified documented in this encounter Care Teams Agricultural Scientist Relationship Specialty Start Date End Date Juan Laguerre MD [address] [place] [id number] PCP - General Family Medicine 01/02/18 Aubrey Crabtree III, MD [address] [place] [address] Hematology and Medical Oncology 10/01/18 Jaki Nieves, PhD [address] [facility] [address] [place] [address] Genetic Counseling 11/27/18 documented as of this encounter
--- OUTSIDE RECORDS SUMMARY | 2025-08-09 09:32 | XMS_ITS ---
Author Organization [facility] Address [address] [place] [address] Care Team Providers Care Business Department Chair Name Role Phone Juan Laguerre MD Primary Care Provider [phone] Bro AWAN MD, Aubrey Lane Unavailable [phone] Jaki Nieves PhD Unavailable [phone] Transplant Episode Liver Recipient [facility] ([place], [place]) - [facility] Organ Received: Liver Transplanted on 01/02/2008 Marked as Active Follow-up on 01/02/2008 Liver CoordinatorTransplant Coordinator Phone: N/A Fax: N/A Email: N/A [place] Organ Diagnosis Organ Primary Contributory Liver Alcoholic Cirrhosis Rejection History Noted Survival Rejection Treatment Biopsy Resolved 01/02/2008 0 days Kidney transplant 01/02/2008 Infection History Noted Survival Infection Treatment Organism Resolved 07/31/2023 15 years 6 months COVID-19 in immunocompromised patient 11/27/2018 10 years 10 months BK viruria Donor Information Organ ABO Source Meets Risk Criteria HLA Match Mismatches Cross Match Liver Transplanted O DBD No A: B: DR: Liver Donor Serology Results EBV IgG EBV VCA IgG: Positive Anti-HBcAb HBC Total: Negative HBsAg HBsAg: Negative HBV DNA No results on file Anti-HCV HCV: Negative Anti-HIV I/II HIV-1: Negative Anti-HTLV I/II Anti-HTLV I/II: Negative RPR/VDRL RPR: Negative EBV IgM EBV VCA IgM: Negative HBsAb HBsAb: Not Done EBNA EBNA IgG: Not Done Toxoplasma No results on file HSV 1 No results on file HSV 2 No results on file Quantiferon TB No results on file HCV Viola No results on file Anti-CMV CMV IgG: Positive CMV VIOLA No results on file HIV VIOLA No results on file Care Team Name Role Phone Fax Email Manual Winder Liver Coordinator N/A N/A N/A Cathleen Gallegos MD Nitroglycerin Separator Operator [phone] Juan Laguerre MD Referring Physician [phone] N/A CARLENE Guthrie Turpentiner N/A N/A N/A Sam Hector MD senior manager [phone] N/A Onelia Alamo APRN, ACTIVE DIRECTORY SPECIALIST Camera Systems Engineer Nurse Practitioner [phone] N/A Michelle Madera MD Surgeon [phone] N/A Nuria Pope MD Physician [phone] [email or web address] Errol Hernandez Referring Competitive Shopper [phone] N/A Events Post-Transplant Pre-Transplant Admitted: 01/02/2008 Referred: 12/11/2007 Transplanted: 01/02/2008 Center waitlisted: 12/12/19 08 Discharged: 01/05/2008 Dialysis History Dialysis History Start End Type Comments Center 01/04/2018 Maintenance (Type Unknown) [facility] Dialysis Center Information Center Phone Fax Address [facility] [phone] [facility] [address] [place] [id number]
--- OUTSIDE RECORDS SUMMARY | 2025-08-09 09:32 | XMS_ITS | Encounter Summary ---
Author Organization [facility] Address [address] [place] [address] Care Team Providers Care Student Accounts Coordinator Name Role Phone Juan Laguerre MD Primary Care Provider [phone] Bro AWAN MD, Aubrey Lane Unavailable [phone] Jaki Nieves PhD Unavailable [phone] Source Comments In the event that this is information that is protected by federal Confidentiality of Substance User Disorder Patient Records, 42 CFR Part 2 prohibits the unauthorized disclosure of these records.[facility] Encounter Details Date Type Department Care Team (Late st Contact Info) Description 10/20/2018 Orders Only NM Transplant Surgery [address] [facility], 19th [address] [place], [place] [address] Noe Keyes MD [address] [facility] [address], [place] [address] Social History Tobacco Use Types Packs/Day Years Used Date Smoking Tobacco: Former Cigarettes 2 - 2011 Smokeless Tobacco: Never Alcohol [...] Office Visit NM Transplant Surgery [address] [facility], 19th Floor [address] [place] [address] Apt confirmed-EH documented as of this encounter Visit Diagnoses Diagnosis Kidney transplanted Kidney replaced by transplant documented in this encounter Additional Health Concerns Infection Onset Date Last Indicated Resolved Time COVID-19 Comment:Tested + on 09/0109/01/2020 09/05/2020 09/25/2020 12: 31 AM ELECTRONIC COMMERCE SPECIALIST documented as of this encounter Care Teams Student Accounts Coordinator Relationship Specialty Start Date End Date Juan Laguerre MD [address] [facility] [address] [place] [address] PCP - General Family Medicine 01/02/18 Aubrey Crabtree III, MD [address] [facility] [address] [place] [address] Hematology and Medical Oncology 10/01/18 Jaki Nieves, PhD [address] [facility] [address] [place] [address] Genetic Counseling 11/27/18 documented as of this encounter
--- OUTSIDE RECORDS SUMMARY | 2025-08-09 09:32 | XMS_ITS | Encounter Summary ---
Author Organization [facility] Address [address] [place] [address] Care Team Providers Care Home Child Care Provider Name Role Phone Juan Laguerre MD Primary Care Provider [phone] Bro AWAN MD, Aubrey Lane Unavailable [phone] Jaki Nieves PhD Unavailable [phone] Source Comments In the event that this is information that is protected by federal Confidentiality of Substance User Disorder Patient Records, 42 CFR Part 2 prohibits the unauthorized disclosure of these records.[facility] Encounter Details Date Type Department Care Team (Late st Contact Info) Description 08/17/2024 Orders Only NM Transplant Surgery [address] [facility], 19th [address] [place], [place] [address] Cathleen Gallegos MD [address] [facility] [address], [place] [address] Social History Tobacco Use Types Packs/Day Years [...] [address] [facility], 19th Floor [address] [place] [address] Apt confirmed-EH documented as of this encounter [...] monitoring documented in this encounter Care Teams Home Child Care Provider Relationship Specialty Start Date End Date Juan Laguerre MD [address] [address] PCP - General Family Medicine 01/02/18 Aubrey Crabtree III, MD [address] [address] Hematology and Medical Oncology 10/01/18 Jaki Nieves, PhD [address] [facility] [address] [place] [address] Genetic Counseling 11/27/18 documented as of this encounter
--- OUTSIDE RECORDS SUMMARY | 2025-08-09 09:32 | XMS_ITS | Encounter Summary ---
Author Organization [facility] Address [address] [place] [address] Phone Care Team Providers Care Company Doctor Name Role Phone Juan Laguerre MD Primary Care Provider [phone] Rell Painting MD Unavailable [phone] Bro AWAN MD, James L Unavailable [phone] Jez Denson MD Unavailable Cathleen Gallegos MD Unavailable Vikram Garza MD Unavailable [phone] Treva Edwards MD Unavailable [phone] Sanchez Bills DPM Unavailable [phone] Encounter Details Date Type Department Care Team (Latest Contact Info) Description 08/15/2020 Transcribe Orders [facility] Services [address] [place] [address] Cathleen Gallegos MD [address] [address] Kidney replaced by transplant (Primary Dx); Liver replaced by transplant (HCC) Social History Tobacco Use Types Packs/Day Years Used Date Smoking Tobacco: Former Cigarettes 1 30 0 06/15/1981 - 06/15/2011 Smokeless Tobacco: Never Alcohol Use Standard Drinks/Week Comments Not Currently 0 (1 standard drink = 0.6 oz pur e alcohol) PHQ-2 Answer Date Recorded PHQ-2 Score 0 07/02/2019 Sex and Gender Information Value Date Recorded Sex Assigned at Not on file Legal Sex Male 12:44 AM CDT Gender Identity Not on file Sexual Orientation Not on file COVID-19 Exposure Response Date Recorded In the last month, have you been in contact with someone who was confirmed or suspected to have Coronavirus / COVID-19? No / Unsure 08/17/2020 1:30 PM CDT documented as of this encounter Plan of Treatment Upcoming Encounters Date Type Department Care Team (Late st Contact Info) Description 08/10/2025 12:45 PM CDT Lab [facility] [address] [address] Lab, [facility] 08/10/2025 1:00 PM CDT Ancillary Procedure [facility] [address] [address] 08/17/2025 9:00 AM CDT Office Visit [facility] [address] [address] Tyler Haile MD [address] [place] [address] Scheduled Orders Name Type Priority Associated Diagnoses Orde r Schedule BK VIRUS BLOOD, [place] [id number] Lab Routine 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 (HCC) every 3 months for 3 Occurrences starting 08/15/2020 until 08/15/2021 documented as of this encounter Results * (ABNORMAL) LIPID PANEL (08/17/2020 1:51 PM CDT) Cholesterol 277(H) 0 - 200 mg/dL [facility] Triglyceride 484(H) 0 - 150 mg/dL [facility] HDL 36 23 - 92 mg/dL [facility] LDL See Comment 0 - 130 mg/dL [facility] Comment: Triglycerides result of >400 mg/dL invalidates the accuracy of calculated LDL. If you would like to order a Direct LDL, please inform the laboratory immediately. Cholesterol /HDL Ratio 7.69(H) 0.00 - 4.44 [facility] Blood 08/17/2020 1:[address] [facility] - 08/17/2020 4:17 PM CDT Is the patient fasting? Unknown Cathleen Gallegos MD CHEMISTRY ORDERABLES Final Resul t Performing Organization Address [facility] Co de Phone Number [facility] [place] [address], * (ABNORMAL) PARATHYROID HORMONE PTH INTACT (08/17/2020 1:51 PM CDT) PTH, INTACT 81(H) 15 - 65 PG/ML [facility] Blood 08/17/2020 1:51 PM CDT Narrative [facility] - 08/18/2020 10:08 AM CDT TESTING PERFORMED AT: [] [address], [address], PHONE: [phone], EARLY CHILDHOOD DIRECTOR: RAEGAN ROSALES, PHD Cathleen Gallegos MD CHEMISTRY ORDERABLES Final Resul t Performing Organization Address City/[facility] Co de Phone Number [facility] * (ABNORMAL) VITAMIN D, 25 HYDROXY TOTAL (08/17/2020 1:51 PM CDT) 25() Vitamin D, Total 29.1(L) 30.0 - 100.0 ng/mL [facility] Comment: The Clinical Guidelines Subcommittee of the Endocrine Society Task Force established the guidelines below for recommended serum 25(OH) vitamin D levels. Other clinical reference citations may show different values. Deficient <20 Insufficient 20 to <30 Sufficient 30 to 100 Upper Safety Limit >100 Blood 08/17/2020 1:51 PM CDT us Cathleen Gallegos MD CHEMISTRY ORDERABLES Final Resul t [facility] [address] [place] [address], documented in this encounter Visit Diagnoses Diagnosis Kidney replaced by transplant- Primary Liver replaced by transplant 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 documented in this encounter Additional Health Concerns Infection Onset Date Last Indicated Resolved Time COVID - 19 09/08/2020 09/08/2020 09/08/2020 7:58 PM CARPET SEWER COVID - 19 Confirmed 09/08/2020 09/08/2020 020 12:18 AM CARPET SEWER COVID - 19 09/08/2020 09/08/2020 09/09/2020 8:11 AM CARPET SEWER Assessment Noted Time PHQ-9 Depression Total Score: 0 06/24/20 20 12:20 PM CDT documented as of this encounter Care Teams Company Doctor Relationship Specialty Start Date End Date Juan Laguerre MD [address] [place] [address] [place] [address] PCP - General Family Medicine 10/05/16 Rell Painting MD [address] [place] [address] Consulting Physician General Surgery 10/22/18 Aubrey Crabtree III, MD [address] [facility] [address] [place] [address] Medical Oncologist Internal Medicine 11/06/18 Jez Denson MD [address] [facility] [place] [address] Consulting Physician Cardiovascular Disease - Cardiology 01/19/19 Cathleen Gallegos MD [address] [address] Consulting Physician Nephrology 01/19/19 Vikram Garza MD [address] [address] Consulting Physician Cardiovascular Disease - Cardiology 01/19/19 Treva Edwards MD [address] [place] [address] Consulting Physician Internal Medicine 08/31/20 Sanchez Bills DPM [address] [facility] [address] [place] [address] Consulting Physician Podiatry 08/31/20 documented as of this encounter
--- OUTSIDE RECORDS SUMMARY | 2025-08-09 09:32 | XMS_ITS | Encounter Summary ---
Author Organization [facility] Address [address] [place] [address] Care Team Providers Care Classification And Treatment Director Name Role Phone Juan Laguerre MD Primary Care Provider [phone] Bro AWAN MD, Aubrey Lane Unavailable [phone] Jaki Nieves PhD Unavailable [phone] Source Comments In the event that this is information that is protected by federal Confidentiality of Substance User Disorder Patient Records, 42 CFR Part 2 prohibits the unauthorized disclosure of these records.[facility] Encounter Details Date Type Department Care Team (Late Contact Info) Description 05/18/2024 Orders Only NM Transplant Surgery [address] [facility], 19th Floor [address] [place] [address] Delaney Gallegos Social History Tobacco Use Types [...] Surgery [address] [facility] [address] [place] [address] Apt confirmed-EH documented as of this encounter Procedures Procedure Name Priority Date/Time Associated Diagnosis Comments OP URINALYSIS WITH MICROSCOPIC, REFLEX TO CULTURE Routine 05/25/2024 8:18 AM CDT documented in this encounter Results * (ABNORMAL) Urinalysis with Microscopic, Reflex to Culture (05/25/2024 8:18 AM CDT) UA Color - External YELLOW YELLOW EXTERNAL LAB UA Appearance - External CLEAR CLEAR EXTERNAL LAB Specific [place], Urine - External 1.025 1.001 - 1.035 EXTERNAL LAB UA pH - External 6.5 5.0 - 8.0 EXTERNAL LAB UA Glucose - External 3+ NEGATIVE EXTERNAL LAB UA Bilirubin - External NEGATIVE NEGATIVE EXTERNAL LAB UA Ketones - External NEGATIVE NEGATIVE EXTERNAL LAB UA Blood - External NEGATIVE NEGATIVE EXTERNAL LAB UA Protein - External TRACE(H) NEGATIVE EXTERNAL LAB UA Nitrate - External NEGATIVE NEGATIVE EXTERNAL LAB UA Leukocyte Esterase - External NEGATIVE NEGATIVE EXTERNAL LAB UA WBC - External NONE SEEN <=5 /HPF EXTERNAL LAB UA RBC - External NONE SEEN /HPF EXTERNAL LAB UA Squamous Epithelial Cells - External NONE SEEN <=5 /HPF EXTERNAL LAB UA Bacteria - External NONE SEEN NONE SEEN /HPF EXTERNAL LAB UA Hyaline Cast - External NONE SEEN NONE SEEN /LPF EXTERNAL LAB 05/25/2024 8:18 AM CDT Narrative EXTERNAL LAB - 06/01/2024 12:10 PM CDT Verified by Elzbieta Sam on 06/01/2024. us Noe Keyes MD URINE ORDERABLES Final Resul t EXTERNAL LAB documented in this encounter Visit Diagnoses Diagnosis Kidney replaced by transplant documented in this encounter Care Teams Classification And Treatment Director Relationship Specialty Start Date End Date Juan Laguerre MD [address] [place] [address] [place] [address] PCP - General Family Medicine 01/02/18 Aubrey Crabtree III, MD [address] [place] [address] [place] [address] Hematology and Medical Oncology 10/01/18 Jaki Nieves, PhD [address] [facility] [address] [place] [address] Genetic Counseling 11/27/18 documented as of this encounter
--- OUTSIDE RECORDS SUMMARY | 2025-08-09 09:32 | XMS_ITS | Encounter Summary ---
Author Organization [facility] Address [address] [place] [address] Care Team Providers Care Bank Officer Name Role Phone Juan Laguerre MD Primary Care Provider [phone] Bro AWAN MD, Aubrey Lane Unavailable [phone] Jaki Nieves PhD Unavailable [phone] Source Comments In the event that this is information that is protected by federal Confidentiality of Substance User Disorder Patient Records, 42 CFR Part 2 prohibits the unauthorized disclosure of these records.[facility] Encounter Details Date Type Department Care Team (Late st Contact Info) Description 06/01/2019 Orders Only NM Transplant Surgery [address] [facility], 19th Floor [address] [place], [place] [address] Cathleen Gallegos MD [address] [facility] [address] [address] Social History Tobacco Use Types Packs/Day Years [...] Office Visit NM Transplant Surgery [address] [facility], 19th [address] [place] [address] Apt confirmed-EH documented as of this encounter Visit Diagnoses Diagnosis Secondary hyperparathyroidism (of renal origin) Kidney transplant 01/02/2008 Liver transplant 01/02/2008 Liver replaced by transplant Type II diabetes mellitus with complication, uncontrolled Type II or unspecified type diabetes mellitus with unspecified complication, uncontrolled documented in this encounter Additional Health Concerns Infection Onset Date Last Indicated Resolved Time COVID-19 Comment:Tested + on 09/0109/01/2020 09/05/2020 09/25/2020 12: 31 AM 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
--- OUTSIDE RECORDS SUMMARY | 2025-08-09 09:32 | XMS_ITS | Encounter Summary ---
Author Organization [facility] Address [address] [place] [address] Care Team Providers Care Candy Vendor Name Role Phone Juan Laguerre MD Primary Care Provider [phone] Bro AWAN MD, Aubrey Lane Unavailable [phone] Jaki Nieves PhD Unavailable [phone] Source Comments In the event that this is information that is protected by federal Confidentiality of Substance User Disorder Patient Records, 42 CFR Part 2 prohibits the unauthorized disclosure of these records.[facility] Encounter Details Date Type Department Care Team (Late st Contact Info) Description 02/22/2025 Orders Only NM Transplant Surgery [address] [facility], [address] [place], [place] [address] Cathleen Gallegos MD [address] [facility] [address], [place] [address] Social History Tobacco Use Types Packs/Day Years [...] Office Visit NM Transplant Surgery [address] [facility], [address] [place], [place] [address] Apt confirmed-EH documented as of this encounter Visit Diagnoses Diagnosis Kidney replaced by transplant documented in this encounter Care Teams Candy Vendor Relationship Specialty Start Date End Date Juan Laguerre MD [address] [facility] [address] [place] [address] PCP - General Family Medicine 01/02/18 Aubrey Crabtree III, MD [address] [facility] [address] [place] [address] Hematology and Medical Oncology 10/01/18 Jaki Nieves, PhD [address] [facility] [address] [place], [place] [address] Genetic Counseling 11/27/18 documented as of this encounter
--- OUTSIDE RECORDS SUMMARY | 2025-08-09 09:32 | XMS_ITS | Encounter Summary ---
Author Organization [facility] Address [address] [place] [address] Care Team Providers Care Nurse Ortho Name Role Phone Juan Laguerre MD Primary Care Provider [phone] Bro AWAN MD, Aubrey Lane Unavailable [phone] Jaki Nieves PhD Unavailable [phone] Source Comments In the event that this is information that is protected by federal Confidentiality of Substance User Disorder Patient Records, 42 CFR Part 2 prohibits the unauthorized disclosure of these records.[facility] Encounter Details Date Type Department Care Team (Late Contact Info) Description 03/23/2024 Orders Only NM Transplant Surgery [address] [facility], 19th Floor [address] [place] [address] Delaney Gallegos Social History Tobacco Use Types [...] Office Visit NM Transplant Surgery [address] [facility], [address]th [address] [place], [place] [address] Apt confirmed-EH documented as of this encounter Visit Diagnoses Diagnosis Kidney replaced by transplant documented in this encounter Care Teams Nurse Ortho Relationship Specialty Start Date End Date Juan Laguerre MD [address] [facility] [address] [place], [place] [address] PCP - General Family Medicine 01/02/18 Aubrey Crabtree III, MD [address] [facility] [address] [place], [place] [address] Hematology and Medical Oncology 10/01/18 Jaki Nieves, PhD [address] [facility] [address] [place], [place] [address] Genetic Counseling 11/27/18 documented as of this encounter
--- OUTSIDE RECORDS SUMMARY | 2025-08-09 09:32 | XMS_ITS | Encounter Summary ---
Author Organization [facility] Address [address] [place] [address] Care Team Providers Care Unit Control Clerk Name Role Phone Juan Laguerre MD Primary Care Provider [phone] Bro AWAN MD, Aubrey Lane Unavailable [phone] Jaki Nieves PhD Unavailable [phone] Source Comments In the event that this is information that is protected by federal Confidentiality of Substance User Disorder Patient Records, 42 CFR Part 2 prohibits the unauthorized disclosure of these records.[facility] Encounter Details Date Type Department Care Team (Late Contact Info) Description 04/12/2025 Orders Only NM Transplant Surgery [address] [facility], 19th Floor [address] [place] [address] Colleen Christy Social History Tobacco Use Types Packs/Day Years [...] [address], [address] [place], [place] [address] Apt confirmed-EH documented as of this encounter Visit Diagnoses Diagnosis 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 Type II diabetes mellitus with complication (CMS-HCC) Type II or unspecified type diabetes mellitus with unspecified complication, not stated as uncontrolled documented in this encounter Care Teams Unit Control Clerk Relationship Specialty Start Date End Date Juan Laguerre MD [address] [facility] [address] [place] [address] PCP - General Family Medicine 01/02/18 Aubrey Crabtree III, MD [address] [facility] [address] [place] [address] Hematology and Medical Oncology 10/01/18 Jaki Nieves, PhD [address] [place], [place] [address] Genetic Counseling 11/27/18 documented as of this encounter
--- OUTSIDE RECORDS SUMMARY | 2025-08-09 09:32 | XMS_ITS | Encounter Summary ---
Author Organization [facility] Address [address] [place] [address] Care Team Providers Care Amr Physician Name Role Phone Juan Laguerre MD Primary Care Provider [phone] Bro AWAN MD, Aubrey Lane Unavailable [phone] Jaki Nieves PhD Unavailable [phone] Source Comments In the event that this is information that is protected by federal Confidentiality of Substance User Disorder Patient Records, 42 CFR Part 2 prohibits the unauthorized disclosure of these records.[facility] Encounter Details Date Type Department Care Team (Late Contact Info) Description 06/01/2019 Orders Only NM Transplant Surgery [address] [facility], 19th Floor [address] [place] [address] Evelin Fontenot RN Social History Tobacco Use Types Packs/Day Years Used Date Smoking Tobacco: Former Cigarettes 2 30 1 - 2011 Smokeless Tobacco: Never Alcohol Use [...] [address], [address] [place] [address] Apt confirmed-EH documented as of this encounter Visit Diagnoses Diagnosis 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 transplant documented in this encounter Additional Health Concerns Infection Onset Date Last Indicated Resolved Time COVID-19 Comment:Tested + on 09/0109/01/2020 09/05/2020 09/25/2020 12: 31 AM 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
--- OUTSIDE RECORDS SUMMARY | 2025-08-09 09:32 | XMS_ITS | Encounter Summary ---
Author Organization [facility] Address [address] [place] [address] Care Team Providers Care Education Finance Processor Name Role Phone Juan Laguerre MD Primary Care Provider [phone] Bro AWAN MD, Aubrey Lane Unavailable [phone] Jaki Nieves PhD Unavailable [phone] Source Comments In the event that this is information that is protected by federal Confidentiality of Substance User Disorder Patient Records, 42 CFR Part 2 prohibits the unauthorized disclosure of these records.[facility] Encounter Details Date Type Department Care Team (Late st Contact Info) Description 05/11/2019 Orders Only NM Transplant Surgery [address] [facility], 19th Floor [address] [place], [place] [address] Cathleen Gallegos MD [address] [facility] [address] [address] Social History Tobacco Use Types Packs/Day Years [...] NM Transplant Surgery [address] [facility], 19th Floor [address] [place] [address] Apt confirmed-EH documented as of this encounter Procedures Procedure Name Priority Date/Time Associated Diagnosis Comments TACROLIMUS Routine 05/08/2019 5:22 AM CDT PHOSPHORUS LEVEL Routine 05/08/2019 5:22 AM CDT documented in this encounter Results * Phosphorus Level (05/08/2019 5:22 AM CDT) Phosphorous - External A EXTERNAL LAB 05/08/2019 5:22 AM CDT Narrative EXTERNAL LAB - 05/11/2019 12:12 PM CDT Verified by Koki Burks on 05/11/2019. Cathleen Gallegos MD CHEMISTRY ORDERABLES Final Resul t EXTERNAL LAB * Tacrolimus (05/08/2019 5:22 AM CDT) Tacrolimus ([id number]), Blood - External <2.0 ng/mL EXTERNAL LAB 05/08/2019 5:22 AM CDT Narrative EXTERNAL LAB - 05/11/2019 12:12 PM CDT Verified by Koki Burks on 05/11/2019. Cathleen Gallegos MD CHEMISTRY ORDERABLES Final Resul t EXTERNAL LAB documented in this encounter Visit Diagnoses Diagnosis Kidney transplant 01/02/2008 Liver transplant 01/02/2008 Liver replaced by transplant documented in this encounter Additional Health Concerns Infection Onset Date Last Indicated Resolved Time COVID-19 Comment:Tested + on 09/0109/01/2020 09/05/2020 09/25/2020 12: 31 AM MIG TIG WELDER documented as of this encounter Care Teams Education Finance Processor Relationship Specialty Start Date End Date Juan Laguerre MD [address] [facility] [address] [place] [address] PCP - General Family Medicine 01/02/18 Aubrey Crabtree III, MD [address] [facility] [address] [place] [address] Hematology and Medical Oncology 10/01/18 Jaki Nieves, PhD [address] [facility] [address] [place] [address] Genetic Counseling 11/27/18 documented as of this encounter
--- OUTSIDE RECORDS SUMMARY | 2025-08-09 09:32 | XMS_ITS | Encounter Summary ---
Author Organization [facility] Address [address] [place] [address] Care Team Providers Care Correspondence Section Supervisor Name Role Phone Juan Laguerre MD Primary Care Provider [phone] Bro AWAN MD, Aubrey Lane Unavailable [phone] Jaki Nieves PhD Unavailable [phone] Source Comments In the event that this is information that is protected by federal Confidentiality of Substance User Disorder Patient Records, 42 CFR Part 2 prohibits the unauthorized disclosure of these records.[facility] Encounter Details Date Type Department Care Team (Late st Contact Info) Description 11/03/2018 Orders Only NM Transplant Surgery [address] [facility], 19th Floor [address] [place], [place] [address] Noe Keyes MD [address] [facility] [address] [address] Social History Tobacco Use Types Packs/Day Years [...] Office Visit NM Transplant Surgery [address] [facility], 19th Floor [address] [place] [address] Apt confirmed-EH documented as of this encounter Procedures Procedure Name Priority Date/Time Associated Diagnosis Comments PROTEIN/CREAT RATIO, RANDOM URINE Routine 10/31/2018 5:58 AM STAFF CERTIFIED NURSE MIDWIFE URINALYSIS WITH MICROSCOPIC Routine 10/31/2018 5:58 AM STAFF CERTIFIED NURSE MIDWIFE CBC AND DIFFERENTIAL Routine 10/31/2018 5:58 AM STAFF CERTIFIED NURSE MIDWIFE PHOSPHORUS LEVEL Routine 10/31/2018 5:58 AM STAFF CERTIFIED NURSE MIDWIFE COMPREHENSIVE METABOLIC PANEL Routine 10/31/2018 5:58 AM STAFF CERTIFIED NURSE MIDWIFE documented in this encounter Results * Protein /Creatinine Ratio, Urine (10/31/2018 5:58 AM STAFF CERTIFIED NURSE MIDWIFE) Urine Creatinine, Random - External 81 EXTERNAL LAB Protein, Urine - External 68.5 EXTERNAL LAB Prot/Creat Ratio - External 0.85 EXTERNAL LAB 10/31/2018 5:58 AM STAFF CERTIFIED NURSE MIDWIFE Narrative EXTERNAL LAB - 11/01/2018 6:18 AM STAFF CERTIFIED NURSE MIDWIFE Verified by Monie Siddiqui on 11/01/2018. us Noe Keyes MD URINE ORDERABLES Final Resul t EXTERNAL LAB * Phosphorus Level (10/31/2018 5:58 AM STAFF CERTIFIED NURSE MIDWIFE) Phosphorous - External 2.7 EXTERNAL LAB 10/31/2018 5:58 AM STAFF CERTIFIED NURSE MIDWIFE Narrative EXTERNAL LAB - 11/01/2018 6:18 AM STAFF CERTIFIED NURSE MIDWIFE Verified by Monie Siddiqui on 11/01/2018. Noe Keyes MD CHEMISTRY ORDERABLES Final R esult EXTERNAL LAB * (ABNORMAL) Urinalysis with Microscopic (10/31/2018 5:58 AM STAFF CERTIFIED NURSE MIDWIFE) UA Bilirubin - External NEG EXTERNAL LAB Specific [place], Urine - External 1.013 EXTERNAL LAB UA Leukocyte Esterase - External Negative Negative EXTERNAL LAB UA Nitrate - External Neg Negative EXTERNAL LAB UA Protein - External 1+ Negative EXTERNAL LAB UA Glucose - External 3+(A) Negative EXTERNAL LAB UA Ketones - External Negative Negative EXTERNAL LAB UA Blood - External Negative Negative EXTERNAL LAB UA Color - External Yellow EXTERNAL LAB UA Appearance - External Clear Clear EXTERNAL LAB UA RBC - External 0-5 Negative EXTERNAL LAB UA WBC - External 0-5 EXTERNAL LAB UA pH - External 6.5 EXTERNAL LAB UA Urobilinogen - External <2.0 EXTERNAL LAB 10/31/2018 5:58 AM STAFF CERTIFIED NURSE MIDWIFE Narrative EXTERNAL LAB - 11/01/2018 6:18 AM STAFF CERTIFIED NURSE MIDWIFE Verified by Monie Siddiqui on 11/01/2018. Noe Keyes MD URINE ORDERABLES Final Resul t Performing Organization Address City/[facility]/ZIP Co de Phone Number EXTERNAL LAB * (ABNORMAL) Comp Metabolic Panel (10/31/2018 5:58 AM STAFF CERTIFIED NURSE MIDWIFE) Sodium - External 138 EXTERNAL LAB Potassium - External 4.6 EXTERNAL LAB Chloride - External 104 EXTERNAL LAB CO2 - External 27 EXTERNAL LAB Anion Gap - External 11.6 EXTERNAL LAB Glucose - External 283(H) EXTERNAL LAB Urea Nitrogen - External 25 EXTERNAL LAB Albumin - External 3.2(L) EXTERNAL LAB Calcium - External 8.5 EXTERNAL LAB Creatinine - External 2.7 EXTERNAL LAB Total Bilirubin - External 0.3 EXTERNAL LAB AST (SGOT) - External 16 EXTERNAL LAB ALT (SGPT) - External 20 EXTERNAL LAB Alkaline Phos - External 77 EXTERNAL LAB GFR() - External 59 EXTERNAL LAB GFR(Others) - External 50 EXTERNAL LAB 10/31/2018 5:58 AM STAFF CERTIFIED NURSE MIDWIFE Narrative EXTERNAL LAB - 11/01/2018 6:18 AM STAFF CERTIFIED NURSE MIDWIFE Verified by Monie Siddiqui on 11/01/2018. Noe Keyes MD CHEMISTRY ORDERABLES Final R esult EXTERNAL LAB * (ABNORMAL) CBC with Differential (10/31/2018 5:58 AM STAFF CERTIFIED NURSE MIDWIFE) Red Blood Cells - External 4.34 EXTERNAL LAB Hemoglobin - External 10(L) EXTERNAL LAB MCHC - External 30.2 EXTERNAL LAB Platelets - External 163 EXTERNAL LAB Neutrophils Abs (k/uL) - External 1.18 EXTERNAL LAB Lymphocytes - External 69.1 % EXTERNAL LAB Neutrophils - External 21.6(L) % EXTERNAL LAB Lymph Absolute - External 3.76(H) EXTERNAL LAB - External 0.08 EXTERNAL LAB White Blood Cells - External 5.44 EXTERNAL LAB Hematocrit - External 33.1 EXTERNAL LAB MCV - External 76.3 EXTERNAL LAB MCH - External 23 EXTERNAL LAB RDW - External 18.5 EXTERNAL LAB Monocytes - External 6.1 EXTERNAL LAB Eosinophils - External 0.2 EXTERNAL LAB Basophils - External 1.5 EXTERNAL LAB Whiteside Absolute - External 0.33 EXTERNAL LAB Basophil Absolute - External 0.08 EXTERNAL LAB 10/31/2018 5:58 AM STAFF CERTIFIED NURSE MIDWIFE Narrative EXTERNAL LAB - 11/01/2018 6:18 AM STAFF CERTIFIED NURSE MIDWIFE Verified by Monie Siddiqui on 11/01/2018. us Noe Keyes MD HEMATOLOGY ORDERABLES Final Result Performing Organization Address [facility] Co de Phone Number EXTERNAL LAB documented in this encounter Visit Diagnoses Diagnosis Kidney transplanted Kidney replaced by transplant documented in this encounter Additional Health Concerns Infection Onset Date Last Indicated Resolved Time COVID-19 Comment:Tested + on 09/0109/01/2020 09/05/2020 09/25/2020 12: 31 AM STAFF CERTIFIED NURSE MIDWIFE documented as of this encounter Care Teams Correspondence Section Supervisor Relationship Specialty Start Date End Date Juan Laguerre MD [address] [facility] [address] [address] PCP - General Family Medicine 01/02/18 Aubrey Crabtree III, MD [address] [facility] [address], [place] [address] Hematology and Medical Oncology 10/01/18 Jaki Nieves, PhD [address] [facility] [address] [place] [address] Genetic Counseling 11/27/18 documented as of this encounter
--- OUTSIDE RECORDS SUMMARY | 2025-08-09 09:32 | XMS_ITS | Encounter Summary ---
Author Organization [facility] Address [address] [place] [address] Care Team Providers Care Powder Hand Name Role Phone Juan Laguerre MD Primary Care Provider [phone] Bro AWAN MD, Aubrey Lane Unavailable [phone] Jaki Nieves PhD Unavailable [phone] Source Comments In the event that this is information that is protected by federal Confidentiality of Substance User Disorder Patient Records, 42 CFR Part 2 prohibits the unauthorized disclosure of these records.[facility] Encounter Details Date Type Department Care Team (Late Contact Info) Description 05/03/2025 Orders Only NM Transplant Surgery [address] [facility], 19th Floor [address] [place] [address] Colleen Christy Social History Tobacco Use Types [...] [address], [address] [place], [place] [address] Apt confirmed-EH documented as of this encounter Visit Diagnoses Diagnosis 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 Type II diabetes mellitus with complication (CMS-HCC) Type II or unspecified type diabetes mellitus with unspecified complication, not stated as uncontrolled documented in this encounter Care Teams Powder Hand Relationship Specialty Start Date End Date Juan Laguerre MD [address] [facility] [address] [place] [address] PCP - General Family Medicine 01/02/18 Aubrey Crabtree III, MD [address] [facility] [address] [place] [address] Hematology and Medical Oncology 10/01/18 Jaki Nieves, PhD [address] [place], [place] [address] Genetic Counseling 11/27/18 documented as of this encounter
--- OUTSIDE RECORDS SUMMARY | 2025-08-09 09:32 | XMS_ITS | Encounter Summary ---
Author Organization [facility] Address [address] [place] [address] Care Team Providers Care Financial Health Counselor Name Role Phone Juan Laguerre MD Primary Care Provider [phone] Bro AWAN MD, Aubrey Lane Unavailable [phone] Jaki Nieves PhD Unavailable [phone] Source Comments In the event that this is information that is protected by federal Confidentiality of Substance User Disorder Patient Records, 42 CFR Part 2 prohibits the unauthorized disclosure of these records.[facility] Encounter Details Date Type Department Care Team (Late Contact Info) Description 02/08/2025 Orders Only NM Transplant Surgery [address] [facility], 19th Floor [address] [place] [address] Joshua Bee RN Social History Tobacco Use [facility], [address] [address] [place], [place] [address] Apt confirmed-EH documented as of this encounter Visit Diagnoses Diagnosis 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 transplant Adenocarcinoma of pancreas (CMS-HCC) Malignant neoplasm of pancreas, part unspecified documented in this encounter Care Teams Financial Health Counselor Relationship Specialty Start Date End Date Juan Laguerre MD [address] [facility] [address] [place] [id number] PCP - General Family Medicine 01/02/18 Aubrey Crabtree III, MD [address] [facility] [address] [place] [address] Hematology and Medical Oncology 10/01/18 Jaki Nieves, PhD [address] [facility] [address] [place] [address] Genetic Counseling 11/27/18 documented as of this encounter
--- OUTSIDE RECORDS SUMMARY | 2025-08-09 09:32 | XMS_ITS | Encounter Summary ---
Author Organization [facility] Address [address] [place] [address] Care Team Providers Care Breakdown Man Name Role Phone Juan Laguerre MD Primary Care Provider [phone] Bro AWAN MD, Aubrey Lane Unavailable [phone] Jaki Nieves PhD Unavailable [phone] Source Comments In the event that this is information that is protected by federal Confidentiality of Substance User Disorder Patient Records, 42 CFR Part 2 prohibits the unauthorized disclosure of these records.[facility] Reason for Visit * Reason Onset Date Comments Medications Refill 05/12/2019 Encounter Details Date Type Department Care Team (Late st Contact Info) Description 05/12/2019 Refill NM Transplant Surgery [address] [facility], 19th Floor [address] [place] [address] Edwin Del Toro MD [address] [facility] [address], [place] [address] Medications Refill Social History Tobacco Use Types [...] Office Visit NM Transplant Surgery [address] [facility], 19th [address] [place] [address] Apt confirmed-EH documented as of this encounter Visit Diagnoses Diagnosis Kidney replaced by transplant- Primary 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) Liver replaced by transplant documented in this encounter Additional Health Concerns Infection Onset Date Last Indicated Resolved Time COVID-19 Comment:Tested + on 09/0109/01/2020 09/05/2020 09/25/2020 12: 31 AM IAP DISPLAYS ANALYST documented as of this encounter Care Teams Breakdown Man Relationship Specialty Start Date End Date Juan Laguerre MD [address] [facility] [address] [place] [address] PCP - General Family Medicine 01/02/18 Aubrey Crabtree III, MD [address] [facility] [address] [place] [address] Hematology and Medical Oncology 10/01/18 Jaki Nieves, PhD [address] [facility] [address] [place] [address] Genetic Counseling 11/27/18 documented as of this encounter
--- OUTSIDE RECORDS SUMMARY | 2025-08-09 09:32 | XMS_ITS | Encounter Summary ---
Author Organization [facility] Address [address] [place] [address] Care Team Providers Care Pump Press Operator Name Role Phone Juan Laguerre MD Primary Care Provider [phone] Bro AWAN MD, Aubrey Lane Unavailable [phone] Jaki Nieves PhD Unavailable [phone] Source Comments In the event that this is information that is protected by federal Confidentiality of Substance User Disorder Patient Records, 42 CFR Part 2 prohibits the unauthorized disclosure of these records.[facility] Encounter Details Date Type Department Care Team (Late Contact Info) Description 05/25/2019 Orders Only NM Transplant Surgery [address] [facility], 19th [address] [place] [address] Renetta Henao Social History Tobacco Use Types Packs/Day Years [...] 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
--- OUTSIDE RECORDS SUMMARY | 2025-08-09 09:32 | XMS_ITS | Encounter Summary ---
Author Organization [facility] Address [address] [place] [address] Care Team Providers Care Ruby On Rails Software Developer Name Role Phone Juan Laguerre MD Primary Care Provider [phone] Bro AWAN MD, Aubrey Lane Unavailable [phone] Jaki Nieves PhD Unavailable [phone] Source Comments In the event that this is information that is protected by federal Confidentiality of Substance User Disorder Patient Records, 42 CFR Part 2 prohibits the unauthorized disclosure of these records.[facility] Encounter Details Date Type Department Care Team (Late Contact Info) Description 06/01/2019 Orders Only NM Transplant Surgery [address] [facility], 19th [address] [place] [address] Renetta Henao Social History Tobacco Use Types [...] Office Visit NM Transplant Surgery [address] [facility], 19th [address] [place] [address] Apt confirmed-EH documented as of this encounter [...] on 09/0109/01/2020 09/05/2020 09/25/2020 12: 31 AM SLEEVE SEWER documented as of this encounter Care Teams Ruby On Rails Software Developer Relationship Specialty Start Date End Date Juan Laguerre MD [address] [id number] PCP - General Family Medicine 01/02/18 Aubrey Crabtree III, MD [address] [address] Hematology and Medical Oncology 10/01/18 Jaki Nieves, PhD [address] [facility] [address] [place] [address] Genetic Counseling 11/27/18 documented as of this encounter
--- OUTSIDE RECORDS SUMMARY | 2025-08-09 09:32 | XMS_ITS | Encounter Summary ---
Author Organization [facility] Address [address] [place] [address] Care Team Providers Care Clother In Name Role Phone Juan Laguerre MD Primary Care Provider [phone] Bro AWAN MD, Aubrey Lane Unavailable [phone] Jaki Nieves PhD Unavailable [phone] Source Comments In the event that this is information that is protected by federal Confidentiality of Substance User Disorder Patient Records, 42 CFR Part 2 prohibits the unauthorized disclosure of these records.[facility] Encounter Details Date Type Department Care Team (Late Contact Info) Description 06/08/2019 Orders Only NM Transplant Surgery [address] [facility], 19th [address] [place] [address] Renetta Henao Social History Tobacco Use Types [...] Office Visit NM Transplant Surgery [address] [facility], 19th Floor [address] [place] [address] Apt confirmed-EH documented as of this encounter Procedures Procedure Name Priority Date/Time Associated Diagnosis Comments EVEROLIMUS LEVEL Routine 06/11/2019 1:27 PM CDT documented in this encounter Results * Everolimus Level (06/11/2019 1:27 PM CDT) Everolimus Level - External 5.0 EXTERNAL LAB 06/11/2019 1:27 PM CDT Narrative EXTERNAL LAB - 07/03/2019 11:50 AM CDT Verified by Monie Siddiqui on 07/03/2019. us Physician Non-Staff CHEMISTRY ORDERABLES Final R [...] on 09/0109/01/2020 09/05/2020 09/25/2020 12: 31 AM TRACK MAN documented as of this encounter Care Teams Clother In Relationship Specialty Start Date End Date Juan Laguerre MD [address] [facility] [address] [place] [address] PCP - General Family Medicine 01/02/18 Aubrey Crabtree III, MD [address] [facility] [address] [place] [address] Hematology and Medical Oncology 10/01/18 Jaki Nieves, PhD [address] [facility] [address] [place], [place] [address] Genetic Counseling 11/27/18 documented as of this encounter
--- OUTSIDE RECORDS SUMMARY | 2025-08-09 09:32 | XMS_ITS | Encounter Summary ---
Author Organization [facility] Address [address] [place] [address] Care Team Providers Care Outdoor Emergency Care Technician Name Role Phone Juan Laguerre MD Primary Care Provider [phone] Bro AWAN MD, Aubrey Lane Unavailable [phone] Jaki Nieves PhD Unavailable [phone] Source Comments In the event that this is information that is protected by federal Confidentiality of Substance User Disorder Patient Records, 42 CFR Part 2 prohibits the unauthorized disclosure of these records.[facility] Encounter Details Date Type Department Care Team (Late st Contact Info) Description 04/27/2024 Orders Only NM Transplant Surgery [address] [facility], [address]th [address] [place], [place] [address] Cathleen Gallegos MD [address] [facility] [address], [place] [address] Social History Tobacco Use Types Packs/Day Years [...] Office Visit NM Transplant Surgery [address] [facility], [address]th [address] [place] [address] Apt confirmed-EH documented as of this encounter Procedures Procedure Name Priority Date/Time Associated Diagnosis Comments CBC AND DIFFERENTIAL Routine 05/25/2024 8:18 AM CDT 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 Type II diabetes mellitus with complication (CMS-HCC) Administration of long-term prophylactic antibiotics Encounter for monitoring immunomodulating therapy COMPREHENSIVE METABOLIC PANEL Routine 05/25/2024 8:18 AM CDT 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 Type II diabetes mellitus with complication (CMS-HCC) Administration of long-term prophylactic antibiotics Encounter for monitoring immunomodulating therapy documented in this encounter Results * (ABNORMAL) Comprehensive Metabolic Panel (05/25/2024 8:18 AM CDT) Glucose - External 138(H) 65 - 99 mg/dL EXTERNAL LAB Urea Nitrogen - External 25 7 - 25 mg/dL EXTERNAL LAB Creatinine - External 1.73(H) 0.70 - 1.35 mg/dL EXTERNAL LAB Sodium - External 135 135 - 146 mmol/L EXTERNAL LAB Potassium - External 4.9 3.5 - 5.3 mmol/L EXTERNAL LAB Chloride - External 100 98 - 110 mmol/L EXTERNAL LAB CO2 - External 29 20 - 32 mmol/L EXTERNAL LAB Calcium - External 9.2 8.6 - 10.3 mg/dL EXTERNAL LAB Total Protein - External 6.5 6.1 - 8.1 g/dL EXTERNAL LAB Albumin - External 3.7 3.6 - 5.1 g/dL EXTERNAL LAB Total Bilirubin - External 0.6 0.2 - 1.2 mg/dL EXTERNAL LAB Alkaline Phos - External 73 35 - 144 U/L EXTERNAL LAB AST (SGOT) - External 21 10 - 35 U/L EXTERNAL LAB ALT (SGPT) - External 19 9 - 46 U/L EXTERNAL LAB Blood VEIN SPECIMEN / Unknown 05/25/2024 8:18 AM CDT Narrative EXTERNAL LAB - 06/01/2024 12:10 PM CDT Verified by Elzbieta Sam on 06/01/2024. us Noe Keyes MD CHEMISTRY ORDERABLES Final R esult EXTERNAL LAB * (ABNORMAL) CBC with Differential (05/25/2024 8:18 AM CDT) White Blood Cells - External 10.6 3.8 - 10.8 Thousand/u L EXTERNAL LAB Red Blood Cells - External 7.17(H) 4.20 - 5.80 Million/uL EXTERNAL LAB Hematocrit - External 54.5(H) 38.5 - 50.0 % EXTERNAL LAB MCV - External 76.0(L) 80.0 - 100.0 fL EXTERNAL LAB MCH - External 23.2(L) 27.0 - 33.0 pg EXTERNAL LAB MCHC - External 30.5(L) 32.0 - 36.0 g/dL EXTERNAL LAB RDW - External 19.8(H) 11.0 - 15.0 % EXTERNAL LAB Platelets - External 129(L) 140 - 400 Thousand/u L EXTERNAL LAB Neutrophils - External 5,279 1,500 - 7,800 cells/uL EXTERNAL LAB Lymph Absolute - External 3,721 850 - 3,900 cells/uL EXTERNAL LAB Maury Absolute - External 1,240(H) 200 - 950 cells/uL EXTERNAL LAB - External 223 15 - 500 cells/uL EXTERNAL LAB Basophil Absolute - External 138 0 - 200 cells/uL EXTERNAL LAB Neutrophils Abs (k/uL) - External 49.8 % EXTERNAL LAB Lymphocytes - External 35.1 % EXTERNAL LAB Monocytes - External 11.7 % EXTERNAL LAB Eosinophils - External 2.1 % EXTERNAL LAB Basophils - External 1.3 % EXTERNAL LAB Blood VEIN SPECIMEN / Unknown 05/25/2024 8:18 AM CDT Narrative EXTERNAL LAB - 06/01/2024 12:10 PM CDT Verified by Elzbieta Sam on 06/01/2024. us Noe Keyes MD HEMATOLOGY ORDERABLES Final [...] monitoring documented in this encounter Care Teams Outdoor Emergency Care Technician Relationship Specialty Start Date End Date Juan Laguerre MD [address] [facility] [address] [place], [place] [id number] PCP - General Family Medicine 01/02/18 Aubrey Crabtree III, MD [address] [facility] [address] [place] [address] Hematology and Medical Oncology 10/01/18 Jaki Nieves, PhD [address] [facility] [address] [place] [address] Genetic Counseling 11/27/18 documented as of this encounter
--- OUTSIDE RECORDS SUMMARY | 2025-08-09 09:32 | XMS_ITS ---
Author Organization [facility] Address [address] [place] [address] Phone Care Team Providers Care Field Secretary Name Role Phone Juan Laguerre MD Primary Care Provider [phone] Rell Painting MD Unavailable [phone] Bro AWAN MD, Aubrey Ellis Unavailable Jez Denson MD Unavailable Cathleen Gallegos MD Unavailable Vikram Garza MD Unavailable Treva Edwards MD Unavailable [phone] Sanchez Bills DPM Unavailable Active Problems Problem Noted Date Diagnosed Date [...] 4 years ago, smoked 30 years 1PPD Current Treatment and Therapy Plans No current plan information found. Past Treatment and Therapy Plans ONCOLOGY TREATMENT Plan Name Start Date Discontinue Date Treatment Medications Discontinue Reason Plan Provider Cycles PANCREAS - GEMCITABINE /CAPECITABI NE - CCSCI 10/17/20 18 08/13/2019 capecitabine (XELODA)gemcita bine (GEMZAR) chemo infusion Therapy Complete Aubrey Crabtree III, MD 6 of 6 cycles completed Resolved Problems Problem Noted Date Diagnosed Date Resolved Date Essential hypertension, benign 08/02/2015
--- OUTSIDE RECORDS SUMMARY | 2025-08-09 09:32 | XMS_ITS | Encounter Summary ---
Author Organization [facility] Address [address] [place] [address] Care Team Providers Care Manager Organizational Name Role Phone Juan Laguerre MD Primary Care Provider [phone] Bro AWAN MD, Aubrey Lane Unavailable [phone] Jaki Nieves PhD Unavailable [phone] Source Comments In the event that this is information that is protected by federal Confidentiality of Substance User Disorder Patient Records, 42 CFR Part 2 prohibits the unauthorized disclosure of these records.[facility] Encounter Details Date Type Department Care Team (Late Contact Info) Description 06/22/2019 Orders Only NM Transplant Surgery [address] [facility], 19th [address] [place] [address] Cara Cook RN Social History Tobacco Use [...] [address], [address] [place] [address] Apt confirmed-EH documented as of this encounter Procedures Procedure Name Priority Date/Time Associated Diagnosis Comments EVEROLIMUS LEVEL Routine 06/25/2019 11:1 2 AM CDT EVEROLIMUS LEVEL Routine 06/18/2019 1:23 PM CDT documented in this encounter Results * Everolimus Level (06/25/2019 11:12 AM CDT) Everolimus Level - External 9.7 EXTERNAL LAB 06/25/2019 11:1 2 AM CDT Narrative EXTERNAL LAB - 07/03/2019 11:50 AM CDT Verified by Monie Siddiqui on 07/03/2019. 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
--- OUTSIDE RECORDS SUMMARY | 2025-08-09 09:32 | XMS_ITS | Encounter Summary ---
Author Organization [facility] Address [address] [place] [address] Care Team Providers Care Devulcanizer Head Name Role Phone Juan Laguerre MD Primary Care Provider [phone] Bro AWAN MD, Aubrey Lane Unavailable [phone] Jaki Nieves PhD Unavailable [phone] Source Comments In the event that this is information that is protected by federal Confidentiality of Substance User Disorder Patient Records, 42 CFR Part 2 prohibits the unauthorized disclosure of these records.[facility] Encounter Details Date Type Department Care Team (Late Contact Info) Description 07/06/2019 Orders Only NM Transplant Surgery [address] [facility], 19th Floor [address] [place] [address] Renetta Henao Social History Tobacco Use Types [...] [address], [address] [place] [address] Apt confirmed-EH documented as of this encounter Procedures Procedure Name Priority Date/Time Associated Diagnosis Comments CBC AND DIFFERENTIAL Routine 07/17/2019 5:20 AM CDT HEPATIC FUNCTION PANEL Routine 9 5:20 AM CDT BASIC METABOLIC PANEL Routine 07/17/2019 5:20 AM CDT CBC AND DIFFERENTIAL Routine 07/09/2019 12:30 PM CDT LIPASE Routine 07/09/2019 12:30 PM CDT COMPREHENSIVE METABOLIC PANEL Routine 07/09/2019 12:30 PM CDT documented in this encounter Results * Hepatic function panel (07/17/2019 5:20 AM CDT) Total Protein - External 6 2 - 8.4 g/dL EXTERNAL LAB Total Bilirubin - External 0.3 0.0 - 1.0 mg/dL EXTERNAL LAB AST (SGOT) - External 21 0 - 37 U/L EXTERNAL LAB ALT (SGPT) - External 24 12 - 55 U/L EXTERNAL LAB Alkaline Phos - External 80 39 - 117 U/L EXTERNAL LAB 07/17/2019 5:20 AM CDT Narrative EXTERNAL LAB - 07/17/2019 1:01 PM CDT Verified by Koki Burks on 07/17/2019. us Physician Non-Staff CHEMISTRY ORDERABLES Final R esult EXTERNAL LAB * (ABNORMAL) Basic Metabolic Panel (07/17/2019 5:20 AM CDT) Sodium - External 141 133 - 145 mmol/L EXTERNAL LAB Potassium - External 4.8 mmol/L EXTERNAL LAB Chloride - External 107 96 - 108 mmol/L EXTERNAL LAB CO2 - External 25 mmol/L EXTERNAL LAB Anion Gap - External 13.8 0 - 20.0 mmol/L EXTERNAL LAB Glucose - External 180(H) 70 - 105 mg/dL EXTERNAL LAB Urea Nitrogen - External 25(H) 6 - 19 mg/dL EXTERNAL LAB Creatinine - External 1.90(H) 0.50 - 1.30 mg/dL EXTERNAL LAB Calcium - External 8.6 4 - 10.2 mg/dL EXTERNAL LAB GFR(Others) - External 37 EXTERNAL LAB GFR() - External 44(L) >=60 EXTERNAL LAB 07/17/2019 5:20 AM CDT Narrative EXTERNAL LAB - 07/17/2019 1:01 PM CDT Verified by Koki Burks on 07/17/2019. us Physician Non-Staff CHEMISTRY ORDERABLES Final R esult EXTERNAL LAB * (ABNORMAL) CBC with Differential (07/17/2019 5:20 AM CDT) White Blood Cells - External 9.60 10(3)/mcL EXTERNAL LAB Red Blood Cells - External 5.48 EXTERNAL LAB Hematocrit - External 47.0 39.8 - 52.2 % EXTERNAL LAB MCV - External 85.8 fL EXTERNAL LAB MCHC - External 30.2(L) g/dL EXTERNAL LAB Platelets - External 184 10(3)/mcL EXTERNAL LAB RDW - External 16.2(H) 12.0 - 15.0 % EXTERNAL LAB Neutrophils - External 55.4 % EXTERNAL LAB Monocytes - External 11.7 % EXTERNAL LAB Eosinophils - External 2.8 % EXTERNAL LAB Basophils - External 1.3 % EXTERNAL LAB Neutrophils Abs (k/uL) - External 5.32 1.40 - 7.30 10(3)/mcL EXTERNAL LAB Lymph Absolute - External 2.75 1.30 - 2.90 10(3)/mcL EXTERNAL LAB [place] Absolute - External 1.12(H) 0.10 - 0.80 10(3)/mcL EXTERNAL LAB - External 0.27 0.00 - 0.30 10(3)/mcL EXTERNAL LAB Basophil Absolute - External 0.12(H) 0.00 - 0.10 10(3)/mcL EXTERNAL LAB Hemoglobin - External 14.2 EXTERNAL LAB MCH - External 25.9 EXTERNAL LAB Lymphocytes - External 28.6 EXTERNAL LAB 07/17/2019 5:20 AM CDT Narrative EXTERNAL LAB - 07/17/2019 1:01 PM CDT Verified by Koki Burks on 07/17/2019. us Physician Non-Staff HEMATOLOGY ORDERABLES Final Result EXTERNAL LAB * (ABNORMAL) Comp Metabolic Panel (07/09/2019 12:30 PM CDT) Glucose - External 128(H) 70 - 105 EXTERNAL LAB Urea Nitrogen - External 32(H) 7 - 25 EXTERNAL LAB Creatinine - External 1.9(H) 0.7 - 1.3 mg/dL EXTERNAL LAB Sodium - External 135(L) 136 - 145 EXTERNAL LAB Potassium - External 4.5 3.5 - 5.1 mEq/L EXTERNAL LAB Chloride - External 100 98 - 107 mEq/L EXTERNAL LAB Total Bilirubin - External 0.5 0.3 - 1 EXTERNAL LAB Alkaline Phos - External 67 34 - 104 EXTERNAL LAB AST (SGOT) - External 20 13 - 39 EXTERNAL LAB ALT (SGPT) - External 15 7 - 52 U/L EXTERNAL LAB Total Protein - External 7.2 6.4 - 8.9 EXTERNAL LAB Albumin - External 3.9 3.5 - 5.7 EXTERNAL LAB Calcium - External 9.8 8.6 - 10.3 EXTERNAL LAB Anion Gap - External 11.5 0 - 15.0 EXTERNAL LAB GFR(Others) - External 36.5 ml/min EXTERNAL LAB GFR() - External 44.2 ml/min EXTERNAL LAB 07/09/2019 12:3 0 PM CDT Narrative EXTERNAL LAB - 07/14/2019 3:30 PM CDT Verified by Callie Cassidy on 07/14/2019. us Physician Non-Staff CHEMISTRY ORDERABLES Final R esult EXTERNAL LAB * Lipase (07/09/2019 12:30 PM CDT) Lipase - External 38 13 - 78 U/L EXTERNAL LAB 07/09/2019 12:3 0 PM CDT Narrative EXTERNAL LAB - 07/14/2019 3:30 PM CDT Verified by Callie Cassidy on 07/14/2019. us Physician Non-Staff CHEMISTRY ORDERABLES Final R esult EXTERNAL LAB * (ABNORMAL) CBC with Differential (07/09/2019 12:30 PM CDT) White Blood Cells - External 8.7 EXTERNAL LAB Red Blood Cells - External 14.5 EXTERNAL LAB Hematocrit - External 46.8 40.1 - 51.0 % EXTERNAL LAB Platelets - External 165 163 - 369 EXTERNAL LAB RDW - External 16.7 EXTERNAL LAB MCV - External 88 79 - 95 fL EXTERNAL LAB MCHC - External 31.0 25.6 - 32.2 pg EXTERNAL LAB MCH - External 27.1(L) 32.2 - 36.5 EXTERNAL LAB Neutrophils - External 49.9 % EXTERNAL LAB Lymphocytes - External 36.9 0 - 40.0 % EXTERNAL LAB Eosinophils - External 1.6 EXTERNAL LAB Basophils - External 1.2 EXTERNAL LAB Monocytes - External 10.2 EXTERNAL LAB [place] Absolute - External 0.9(L) 4.1 - 12.1 % EXTERNAL LAB Neutrophils Abs (k/uL) - External 4.3 4 - 6.6 EXTERNAL LAB Lymph Absolute - External 3.2 0.8 - 40.10 uL EXTERNAL LAB - External 0.1 0.0 - 0.4 10*3/uL EXTERNAL LAB Basophil Absolute - External 0.1 0.0 - 0.1 uL EXTERNAL LAB 07/09/2019 12:3 0 PM CDT Narrative EXTERNAL LAB - 07/14/2019 3:30 PM CDT Verified by Callie Cassidy on 07/14/2019. 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
--- OUTSIDE RECORDS SUMMARY | 2025-08-09 09:32 | XMS_ITS | Encounter Summary ---
Author Organization [facility] Address [address] [place] [address] Care Team Providers Care Eight Arm Operator Name Role Phone Juan Laguerre MD Primary Care Provider [phone] Bro AWAN MD, Aubrey Lane Unavailable [phone] Jaki Nieves PhD Unavailable [phone] Source Comments In the event that this is information that is protected by federal Confidentiality of Substance User Disorder Patient Records, 42 CFR Part 2 prohibits the unauthorized disclosure of these records.[facility] Encounter Details Date Type Department Care Team (Late st Contact Info) Description 05/11/2024 Orders Only NM Transplant Surgery [address] [facility], 19th [address] [place], [place] [address] Cathleen Gallegos MD [address] [facility] [address], [place] [address] Social History Tobacco Use Types Packs/Day Years [...] Office Visit NM Transplant Surgery [address] [facility], 19th Floor [address] [place] [address] Apt confirmed-EH documented as of this encounter Procedures Procedure Name Priority Date/Time Associated Diagnosis Comments HEMOGLOBIN A1C Routine 05/25/2024 8:18 AM CDT 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 Type II diabetes mellitus with complication (CMS-HCC) Administration of long-term prophylactic antibiotics Encounter for monitoring immunomodulating therapy LIPID PANEL (AMA) W/LDL CALC Routine 05/25/2024 8:18 AM CDT 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 us Noe Keyes MD CHEMISTRY ORDERABLES Final R esult EXTERNAL LAB * (ABNORMAL) Lipid Panel(AMA) w/LDL Calculated (05/25/2024 8:18 AM CDT) Total Cholesterol - External 186 <200 mg/dL EXTERNAL LAB HDL Cholesterol - External 36(L) mg/dL EXTERNAL LAB Triglycerides - External 329(H) <150 mg/dL EXTERNAL LAB Cholesterol LDL Direct - External 106(H) <100 mg/dL (calc) EXTERNAL LAB Blood VEIN SPECIMEN / Unknown [...] monitoring documented in this encounter Care Teams Eight Arm Operator Relationship Specialty Start Date End Date Juan Laguerre MD [address] [facility] [address] [place] [address] PCP - General Family Medicine 01/02/18 Aubrey Crabtree III, MD [address] [facility] [address] [place] [address] Hematology and Medical Oncology 10/01/18 Jaki Nieves, PhD [address] [facility] [address] [place] [address] Genetic Counseling 11/27/18 documented as of this encounter
--- OUTSIDE RECORDS SUMMARY | 2025-08-09 09:32 | XMS_ITS | Encounter Summary ---
Author Organization [facility] Address [address] [place] [address] Care Team Providers Care Manager Hydraulic Name Role Phone Juan Laguerre MD Primary Care Provider [phone] Bro AWAN MD, Aubrey Lane Unavailable [phone] Jaki Nieves PhD Unavailable [phone] Source Comments In the event that this is information that is protected by federal Confidentiality of Substance User Disorder Patient Records, 42 CFR Part 2 prohibits the unauthorized disclosure of these records.[facility] Reason for Visit * Reason Onset Date Comments Lab Results 04/07/2025 K+, A1C Encounter Details Date Type Department Care Team (Late st Contact Info) Description 04/07/2025 Results Follow-Up NM Transplant Surgery [address] [facility], 19th [address] [place] [address] Emelina Dias, welding specialist Results (K+, A1C) Social History Tobacco Use Types Packs/Day Years [...] on file documented as of this encounter Miscellaneous Notes * Telephone Encounter - Emelina Dias, LIZABETH - 04/07/2025 1:31 PM CDT K+ 5.7, A1C 9.3 Pt called. No answer. Left vm to return call. MCM sent to pt. documented in this encounter Plan of Treatment Upcoming Encounters Date Type Department Care Team (Late st Contact Info) Description 07/15/2026 1:00 PM CDT Office Visit [place] Transplant Surgery [address] [facility], [address]th [address] [place] [address] Apt confirmed-EH documented as of this encounter Visit Diagnoses Not on filedocumented in this encounter Care Teams Manager Hydraulic Relationship Specialty Start Date End Date Juan Laguerre MD [address] [facility] [address] [place] [address] PCP - General Family Medicine 01/02/18 Aubrey Crabtree III, MD [address] [facility] [address] [place], [place] [address] Hematology and Medical Oncology 10/01/18 Jaki Nieves, PhD [address] [facility] [address] [place], [place] [id number] Genetic Counseling 11/27/18 documented as of this encounter
--- OUTSIDE RECORDS SUMMARY | 2025-08-09 09:32 | XMS_ITS | Encounter Summary ---
Author Organization [facility] Address [address] [place] [address] Care Team Providers Care Vice President Name Role Phone Juan Laguerre MD Primary Care Provider [phone] Bro AWAN MD, Aubrey Lane Unavailable [phone] Jaki Nieves PhD Unavailable [phone] Source Comments In the event that this is information that is protected by federal Confidentiality of Substance User Disorder Patient Records, 42 CFR Part 2 prohibits the unauthorized disclosure of these records.[facility] Reason for Visit * Reason Comments Medications Refill Encounter Details Date Type Department Care Team (Late st Contact Info) Description 11/03/2018 Refill NM Endocrinology [address] [facility] [address] [place], [place] [address] Mabel Vergara, FOREIGN COLLECTION CLERK, BUSINESS PARTNER [address] [facility] [address] [place], [place] [address] Medications Refill Social History Tobacco Use Types [...] encounter Miscellaneous Notes * Telephone Encounter - Treva Morgan RN - 11/05/2018 1:41 PM CST Last office visit: 09/09/2018 Refills sent to preferred Pharmacy [facility] documented in this encounter Plan of Treatment Upcoming Encounters Date Type Department Care Team (Late st Contact Info) Description 07/15/2026 1:00 PM CDT Office Visit [place] Transplant Surgery [address] [place], [place] [address] Apt confirmed-EH documented as of this encounter Visit Diagnoses Not on filedocumented in this encounter Additional Health Concerns Infection Onset Date Last Indicated Resolved Time COVID-19 Comment:Tested + on 09/0109/01/2020 09/05/2020 09/25/2020 12: 31 AM ART GILDER documented as of this encounter Care Teams Vice President Relationship Specialty Start Date End Date Juan Laguerre MD [address] [facility] [address] [place] [address] PCP - General Family Medicine 01/02/18 Aubrey Crabtree III, MD [address] [facility] [address] [place] [address] Hematology and Medical Oncology 10/01/18 Jaki Nieves, PhD [address] [place], [place] [address] Genetic Counseling 11/27/18 documented as of this encounter
--- OUTSIDE RECORDS SUMMARY | 2025-08-09 09:32 | XMS_ITS | Encounter Summary ---
Author Organization [facility] Address [address] [place] [address] Care Team Providers Care Window Treatment Installer Name Role Phone Juan Laguerre MD Primary Care Provider [phone] Bro AWAN MD, Aubrey Lane Unavailable [phone] Jaki Nieves PhD Unavailable [phone] Source Comments In the event that this is information that is protected by federal Confidentiality of Substance User Disorder Patient Records, 42 CFR Part 2 prohibits the unauthorized disclosure of these records.[facility] Encounter Details Date Type Department Care Team (Late Contact Info) Description 11/05/2018 Procedure Pass NM Radiology [address], [address] [place] [address] Social History Tobacco Use Types Packs/Day Years [...] Office Visit NM Transplant Surgery [address] [facility], 19th Floor [address] [place] [address] Apt confirmed-EH documented as of this encounter Visit Diagnoses Not on filedocumented in this encounter Additional Health Concerns Infection Onset Date Last Indicated Resolved Time COVID-19 Comment:Tested + on 09/0109/01/2020 09/05/2020 09/25/2020 12: 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
--- OUTSIDE RECORDS SUMMARY | 2025-08-09 09:32 | XMS_ITS | Encounter Summary ---
Author Organization [facility] Address [address] [place] [address] Care Team Providers Care Automation Qa Lead Name Role Phone Juan Laguerre MD Primary Care Provider [phone] Bro AWAN MD, Aubrey Lane Unavailable [phone] Jaki Nieves PhD Unavailable [phone] Source Comments In the event that this is information that is protected by federal Confidentiality of Substance User Disorder Patient Records, 42 CFR Part 2 prohibits the unauthorized disclosure of these records.[facility] Encounter Details Date Type Department Care Team (Late st Contact Info) Description 04/19/2025 Orders Only [place] Transplant Surgery [address] [facility], [address] [place], [place] [address] Cathleen Gallegos MD [address] [facility] [address], [place] [address] Social History Tobacco Use Types Packs/Day Years [...] Office Visit [place] Transplant Surgery [address] [facility], [address] [place] [address] Apt confirmed-EH documented as of this encounter Visit Diagnoses Diagnosis 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 transplant Protein screening Special screening for other specified conditions Immunosuppression Unspecified disorder of immune mechanism Type II diabetes mellitus with complication (CMS-HCC) Type II or unspecified type diabetes mellitus with unspecified complication, not stated as uncontrolled Administration of long-term prophylactic antibiotics Encounter for long-term (current) use of antibiotics Encounter for monitoring immunomodulating therapy Encounter for therapeutic drug monitoring documented in this encounter Care Teams Automation Qa Lead Relationship Specialty Start Date End Date Juan Laguerre MD [address] [facility] [address] [place] [address] PCP - General Family Medicine 01/02/18 Aubrey Crabtree III, MD [address] [address] Hematology and Medical Oncology 10/01/18 Jaki Nieves, PhD [address] [facility] [address] [place], [place] [address] Genetic Counseling 11/27/18 documented as of this encounter
--- OUTSIDE RECORDS SUMMARY | 2025-08-09 09:32 | XMS_ITS | Encounter Summary ---
Author Organization [facility] Address [address] [place] [address] Care Team Providers Care Volunteer Services Assistant Name Role Phone Juan Laguerre MD Primary Care Provider [phone] Bro AWAN MD, Aubrey Lane Unavailable [phone] Jaki Nieves PhD Unavailable [phone] Source Comments In the event that this is information that is protected by federal Confidentiality of Substance User Disorder Patient Records, 42 CFR Part 2 prohibits the unauthorized disclosure of these records.[facility] Encounter Details Date Type Department Care Team (Late Contact Info) Description 05/25/2019 Orders Only [place] Transplant Surgery [address] [facility], [address]th Floor [address] [place] [address] Evelin Fontenot RN Social History Tobacco Use [...] [address] [facility], 19th Floor [address] [place] [address] Apt confirmed-EH documented as of this encounter Procedures Procedure Name Priority Date/Time Associated Diagnosis Comments EVEROLIMUS LEVEL Routine 05/28/2019 1:51 PM CDT documented in this encounter Results * Everolimus Level (05/28/2019 1:51 PM CDT) Everolimus Level - External 5.5 EXTERNAL LAB 05/28/2019 1:51 PM CDT Narrative EXTERNAL LAB - 07/03/2019 [...] on 09/0109/01/2020 09/05/2020 09/25/2020 12: 31 AM 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
--- OUTSIDE RECORDS SUMMARY | 2025-08-09 09:32 | XMS_ITS | Encounter Summary ---
Author Organization [facility] Address [address] [place] [address] Care Team Providers Care Car Inspection And Repair Manager Name Role Phone Juan Laguerre MD Primary Care Provider [phone] Bro AWAN MD, Aubrey Lane Unavailable [phone] Jaki Nieves PhD Unavailable [phone] Source Comments In the event that this is information that is protected by federal Confidentiality of Substance User Disorder Patient Records, 42 CFR Part 2 prohibits the unauthorized disclosure of these records.[facility] Encounter Details Date Type Department Care Team (Late st Contact Info) Description 08/21/2024 Scanned Document [place] Cardiology [address] [place] [address] [place] [address] [place] [id number] Social History Tobacco Use Types Packs/Day Years [...] Office Visit [place] Transplant Surgery [address] [facility], [address] [place], [place] [address] Apt confirmed-EH documented as of this encounter Visit Diagnoses Not on filedocumented in this encounter Care Teams Car Inspection And Repair Manager Relationship Specialty Start Date End Date Juan Laguerre MD [address] [facility] [address] [place] [address] PCP - General Family Medicine 01/02/18 Aubrey Crabtree III, MD [address] [facility] [address] [place] [address] Hematology and Medical Oncology 10/01/18 Jaki Nieves, PhD [address] [facility] [address] [place], [place] [address] Genetic Counseling 11/27/18 documented as of this encounter
--- OUTSIDE RECORDS SUMMARY | 2025-08-09 09:32 | XMS_ITS | Encounter Summary ---
Author Organization [facility] Address [address] [place] [address] Care Team Providers Care Maintenance Shop Technician Name Role Phone Juan Laguerre MD Primary Care Provider [phone] Bro AWAN MD, Aubrey Lane Unavailable [phone] Jaki Nieves PhD Unavailable [phone] Source Comments In the event that this is information that is protected by federal Confidentiality of Substance User Disorder Patient Records, 42 CFR Part 2 prohibits the unauthorized disclosure of these records.[facility] Encounter Details Date Type Department Care Team (Late st Contact Info) Description 06/14/2025 Orders Only NM Transplant Surgery [address] [facility], 19th Floor [address] [place], [place] [address] Cathleen Gallegos MD [address] [facility] 19[place] [address] Social History Tobacco Use Types Packs/Day Years [...] [facility], [address] [place] [address] Apt confirmed-EH documented as of this encounter [...] monitoring documented in this encounter Care Teams Maintenance Shop Technician Relationship Specialty Start Date End Date Juan Laguerre MD 241 [facility] [address] [place] [address] PCP - General Family Medicine 01/02/18 Aubrey Crabtree III, MD [address] [address] Hematology and Medical Oncology 10/01/18 Jaki Nieves, PhD [address] [facility] [address] [place], [place] [address] Genetic Counseling 11/27/18 documented as of this encounter
--- OUTSIDE RECORDS SUMMARY | 2025-08-09 09:32 | XMS_ITS | Encounter Summary ---
Author Organization [facility] Address [address] [place] [address] Care Team Providers Care Brass Reclaimer Name Role Phone Juan Laguerre MD Primary Care Provider [phone] Bro AWAN MD, Aubrey Lane Unavailable [phone] Jaki Nieves PhD Unavailable [phone] Source Comments In the event that this is information that is protected by federal Confidentiality of Substance User Disorder Patient Records, 42 CFR Part 2 prohibits the unauthorized disclosure of these records.[facility] Encounter Details Date Type Department Care Team (Late Contact Info) Description 10/19/2024 Orders Only NM Transplant Surgery [address] [facility], 19th Floor [address] [place] [address] Joshua Bee RN Social History Tobacco Use [...] Office Visit [place] Transplant Surgery [address] [facility], 19th Floor [address] [place], [place] [address] Apt confirmed-EH documented as of this encounter Visit Diagnoses Diagnosis 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 transplant Adenocarcinoma of pancreas (CMS-HCC) Malignant neoplasm of pancreas, part unspecified documented in this encounter Care Teams Brass Reclaimer Relationship Specialty Start Date End Date Juan Laguerre MD [address] [facility] [address] [place] [id number] PCP - General Family Medicine 01/02/18 Aubrey Crabtree III, MD [address] [facility] [address] [place] [address] Hematology and Medical Oncology 10/01/18 Jaki Nieves, PhD [address] [facility] [address] [place] [address] Genetic Counseling 11/27/18 documented as of this encounter
--- OUTSIDE RECORDS SUMMARY | 2025-08-09 09:32 | XMS_ITS | Encounter Summary ---
Author Organization [facility] Address [address] [place] [address] Care Team Providers Care Environmental Compliance Engineer Name Role Phone Juan Laguerre MD Primary Care Provider [phone] Bro AWAN MD, Aubrey Lane Unavailable [phone] Jaki Nieves PhD Unavailable [phone] Source Comments In the event that this is information that is protected by federal Confidentiality of Substance User Disorder Patient Records, 42 CFR Part 2 prohibits the unauthorized disclosure of these records.[facility] Encounter Details Date Type Department Care Team (Late st Contact Info) Description 05/17/2025 Orders Only NM Transplant Surgery [address] [facility], [address]th Floor [address] [place], [place] [address] Cathleen Gallegos MD [address] [facility] [address], [place] [address] Social History Tobacco Use Types Packs/Day Years [...] Office Visit NM Transplant Surgery [address] [facility], 19th Floor [address] [place] [address] Apt confirmed-EH documented as of this encounter [...] monitoring documented in this encounter Care Teams Environmental Compliance Engineer Relationship Specialty Start Date End Date Juan Laguerre MD [address] [facility] [address] [place] [address] PCP - General Family Medicine 01/02/18 Aubrey Crabtree III, MD [address] [address] Hematology and Medical Oncology 10/01/18 Jaki Nieves, PhD [address] [facility] [address] [place], [place] [address] Genetic Counseling 11/27/18 documented as of this encounter
--- OUTSIDE RECORDS SUMMARY | 2025-08-09 09:32 | XMS_ITS | Encounter Summary ---
Author Organization [facility] Address [address] [place] [address] Care Team Providers Care Journeyman Powerhouse Operator Name Role Phone Juan Laguerre MD Primary Care Provider [phone] Bro AWAN MD, Aubrey Lane Unavailable [phone] Jaki Nieves PhD Unavailable [phone] Source Comments In the event that this is information that is protected by federal Confidentiality of Substance User Disorder Patient Records, 42 CFR Part 2 prohibits the unauthorized disclosure of these records.[facility] Encounter Details Date Type Department Care Team (Late Contact Info) Description 04/19/2025 Orders Only NM Transplant Surgery [address] [facility], 19th Floor [address] [place] [address] Colleen Christy Social History Tobacco Use Types [...] [address], [address] [place], [place] [address] Apt confirmed-EH documented as of this encounter Visit Diagnoses Diagnosis 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 Type II diabetes mellitus with complication (CMS-HCC) Type II or unspecified type diabetes mellitus with unspecified complication, not stated as uncontrolled documented in this encounter Care Teams Journeyman Powerhouse Operator Relationship Specialty Start Date End Date Juan Laguerre MD [address] [facility] [address] [place] [address] PCP - General Family Medicine 01/02/18 Aubrey Crabtree III, MD [address] [facility] [address] [place] [address] Hematology and Medical Oncology 10/01/18 Jaki Nieves, PhD [address] [place], [place] [address] Genetic Counseling 11/27/18 documented as of this encounter
--- OUTSIDE RECORDS SUMMARY | 2025-08-09 09:32 | XMS_ITS | Encounter Summary ---
Author Organization [facility] Address [address] [place] [address] Care Team Providers Care Clinical Science Consultant Name Role Phone Juan Laguerre MD Primary Care Provider [phone] Bro AWAN MD, Aubrey Lane Unavailable [phone] Jaki Nieves PhD Unavailable [phone] Source Comments In the event that this is information that is protected by federal Confidentiality of Substance User Disorder Patient Records, 42 CFR Part 2 prohibits the unauthorized disclosure of these records.[facility] Encounter Details Date Type Department Care Team (Late Contact Info) Description 05/25/2019 Orders Only NM Transplant Surgery [address] [facility], 19th Floor [address] [place] [address] Cara Cook RN Social History Tobacco Use [...] [address], [address] [place] [address] Apt confirmed-EH documented as of this encounter Visit Diagnoses Diagnosis 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 [address] [place], [place] [phone] PCP - General Family Medicine 01/02/18 Aubrey Crabtree III, MD [address] [facility] [address] [place] [address] Hematology and Medical Oncology 10/01/18 Jaki Nieves, PhD [address] [place] [address] Genetic Counseling 11/27/18 documented as of this encounter
--- OUTSIDE RECORDS SUMMARY | 2025-08-09 09:32 | XMS_ITS | Encounter Summary ---
Author Organization [facility] Address [address] [place] [address] Care Team Providers Care Tile Fitter Name Role Phone Juan Laguerre MD Primary Care Provider [phone] Bro AWAN MD, Aubrey Lane Unavailable [phone] Jaki Nieves PhD Unavailable [phone] Source Comments In the event that this is information that is protected by federal Confidentiality of Substance User Disorder Patient Records, 42 CFR Part 2 prohibits the unauthorized disclosure of these records.[facility] Encounter Details Date Type Department Care Team (Late Contact Info) Description 12/14/2024 Orders Only NM Transplant Surgery [address] [facility], 19th Floor [address] [place] [address] Joshua Bee RN Social History Tobacco Use [...] Office Visit NM Transplant Surgery [address] [facility], 19th [address] [place], [place] [address] Apt confirmed-EH documented as of this encounter Visit Diagnoses Diagnosis 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 transplant Adenocarcinoma of pancreas (CMS-HCC) Malignant neoplasm of pancreas, part unspecified documented in this encounter Care Teams Tile Fitter Relationship Specialty Start Date End Date Juan Laguerre MD [address] [facility] [address] [place] [id number] PCP - General Family Medicine 01/02/18 Aubrey Crabtree III, MD [address] [facility] [address] [place] [address] Hematology and Medical Oncology 10/01/18 Jaki Nieves, PhD [address] [facility] [address] [place] [address] Genetic Counseling 11/27/18 documented as of this encounter
--- OUTSIDE RECORDS SUMMARY | 2025-08-09 09:32 | XMS_ITS | Encounter Summary ---
Author Organization [facility] Address [address] [place] [address] Care Team Providers Care Consultant In Ergonomics And Safety Name Role Phone Juan Laguerre MD Primary Care Provider [phone] Bro AWAN MD, Aubrey Lane Unavailable [phone] Jaki Nieves PhD Unavailable [phone] Source Comments In the event that this is information that is protected by federal Confidentiality of Substance User Disorder Patient Records, 42 CFR Part 2 prohibits the unauthorized disclosure of these records.[facility] Encounter Details Date Type Department Care Team (Late Contact Info) Description 02/22/2025 Orders Only NM Transplant Surgery [address] [facility], 19th Floor [address] [place] [address] Joshua Bee RN Social History Tobacco Use [...] Office Visit [place] Transplant Surgery [address] [facility], [address] [place], [place] [address] Apt confirmed-EH documented as of this encounter Visit Diagnoses Diagnosis 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 transplant Adenocarcinoma of pancreas (CMS-HCC) Malignant neoplasm of pancreas, part unspecified documented in this encounter Care Teams Consultant In Ergonomics And Safety Relationship Specialty Start Date End Date Juan Laguerre MD 241 [facility] [address] [place] [id number] PCP - General Family Medicine 01/02/18 Aubrey Crabtree III, MD 241 [facility] [address] [place] [address] Hematology and Medical Oncology 10/01/18 Jaki Nieves, PhD [address] [facility] [address] [place] [address] Genetic Counseling 11/27/18 documented as of this encounter
--- OUTSIDE RECORDS SUMMARY | 2025-08-09 09:32 | XMS_ITS | Encounter Summary ---
Author Organization [facility] Address [address] [place] [address] Care Team Providers Care Manager Equipment Name Role Phone Juan Laguerre MD Primary Care Provider [phone] Bro AWAN MD, Aubrey Lane Unavailable [phone] Jaki Nieves PhD Unavailable [phone] Source Comments In the event that this is information that is protected by federal Confidentiality of Substance User Disorder Patient Records, 42 CFR Part 2 prohibits the unauthorized disclosure of these records.[facility] Encounter Details Date Type Department Care Team (Late st Contact Info) Description 03/22/2025 Orders Only NM Transplant Surgery [address] [facility], 19th Floor [address] [place], [place] [address] Cathleen Gallegos MD [address] [facility] 19[place], [place] [address] Social History Tobacco Use Types Packs/Day Years [...] Office Visit NM Transplant Surgery [address] [facility], 19th Floor [address] [place] [address] Apt confirmed-EH documented as of this encounter Procedures Procedure Name Priority Date/Time Associated Diagnosis Comments EVEROLIMUS LEVEL Routine 04/01/2025 8:11 AM CDT OP URINALYSIS WITH MICROSCOPIC, REFLEX TO CULTURE Routine 04/01/2025 8:11 AM CDT PROTEIN/CREAT RATIO, RANDOM URINE Routine 04/01/2025 8:11 AM CDT CBC AND DIFFERENTIAL Routine 04/01/2025 8:11 AM CDT COMPREHENSIVE METABOLIC PANEL Routine 04/01/2025 8:11 AM CDT documented in this encounter Results * Everolimus Level (04/01/2025 8:11 AM CDT) Pathologist [facility] Everolimus Level - External 6.6 EXTERNAL LAB 04/01/2025 8:11 AM CDT Narrative EXTERNAL LAB - 04/12/2025 11:04 AM CDT Verified by Elzbieta Sam on 04/12/2025. us Noe Keyes MD CHEMISTRY ORDERABLES Final R esult EXTERNAL LAB * Urinalysis with Microscopic, Reflex to Culture (04/01/2025 8:11 AM CDT) UA Color - External YELLOW YELLOW EXTERNAL LAB UA Appearance - External CLEAR CLEAR EXTERNAL LAB Specific [place], Urine - External 1.022 1.001 - 1.035 EXTERNAL LAB UA pH - External 6.5 5.0 - 8.0 EXTERNAL LAB UA Glucose - External 3+ NEGATIVE EXTERNAL LAB UA Bilirubin - External NEGATIVE NEGATIVE EXTERNAL LAB UA Ketones - External NEGATIVE NEGATIVE EXTERNAL LAB UA Blood - External NEGATIVE NEGATIVE EXTERNAL LAB UA Protein - External NEGATIVE NEGATIVE EXTERNAL LAB UA Nitrate - External [...] External 0-5 NONE SEEN /LPF EXTERNAL LAB 04/01/2025 8:11 AM CDT Narrative EXTERNAL LAB - 04/06/2025 4:59 PM CDT Verified by Kelly Dias on 04/06/2025. us Noe Keyes MD URINE ORDERABLES Final Resul t EXTERNAL LAB * (ABNORMAL) CBC with Differential (04/01/2025 8:11 AM CDT) White Blood Cells - External 10.7 3.8 - 10.8 Thousand/u L EXTERNAL LAB Red Blood Cells - External 7.04(H) 4.20 - 5.80 Million/uL EXTERNAL LAB Hemoglobin - External 15.9 13.2 - 17.1 g/dL EXTERNAL LAB Hematocrit - External 53.9(H) 38.5 - 50.0 % EXTERNAL LAB MCV - External 76.6(L) 80.0 - 100.0 fL EXTERNAL LAB MCH - External 22.6(L) 27.0 - 33.0 pg EXTERNAL LAB MCHC - External 29.5(L) 32.0 - 36.0 g/dL EXTERNAL LAB RDW - External 20.3(H) 11.0 - 15.0 % EXTERNAL LAB Platelets - External 194 140 - 400 Thousand/u L EXTERNAL LAB Neutrophils Abs (k/uL) - External 4,740 1,500 - 7,800 cells/uL EXTERNAL LAB Lymph Absolute - External 4,087(H) 850 - 3,900 cells/uL EXTERNAL LAB [place] Absolute - External 1,562(H) 200 - 950 cells/uL EXTERNAL LAB - External 203 15 - 500 cells/uL EXTERNAL LAB Basophil Absolute - External 107 0 - 200 cells/uL EXTERNAL LAB Neutrophils - External 44.3 % EXTERNAL LAB Lymphocytes - External 38.2 % EXTERNAL LAB Monocytes - External 14.6 % EXTERNAL LAB Eosinophils - External 1.9 % EXTERNAL LAB Basophils - External 1.0 % EXTERNAL LAB 04/01/2025 8:11 AM CDT Narrative EXTERNAL LAB - 04/06/2025 4:59 PM CDT Verified by Kelly Dias on 04/06/2025. Noe Keyes MD HEMATOLOGY ORDERABLES Final Result Performing Organization Address City/[facility]/ZIP Co de Phone Number EXTERNAL LAB * (ABNORMAL) Protein/Creatinine Ratio, Urine (04/01/2025 8:11 AM CDT) Urine Creatinine, Random - External 39 20 - 320 mg/dL EXTERNAL LAB Prot/Creat Ratio - External 333(H) 25 - 148 mg/g creat EXTERNAL LAB Protein, Urine - External 13 5 - 25 mg/dL EXTERNAL LAB 04/01/2025 8:11 AM CDT Narrative EXTERNAL LAB - 04/06/2025 4:59 PM CDT Verified by Kelly Dias on 04/06/2025. Noe Keyes MD URINE ORDERABLES Final Resul t Performing Organization Address [facility] Co de Phone Number EXTERNAL LAB * (ABNORMAL) Comprehensive Metabolic Panel (04/01/2025 8:11 AM CDT) Glucose - External 200(H) 65 - 99 mg/dL EXTERNAL LAB Urea Nitrogen - External 29(H) 7 - 25 mg/dL EXTERNAL LAB GFR(Others) - External 38 EXTERNAL LAB Creatinine - External 1.95(H) 0.70 - 1.35 mg/dL EXTERNAL LAB Sodium - External 132(L) 135 - 146 mmol/L EXTERNAL LAB Potassium - External 5.7(H) 3.5 - 5.3 mmol/L EXTERNAL LAB Chloride - External 98 98 - 110 mmol/L EXTERNAL LAB CO2 - External 29 20 - 32 mmol/L EXTERNAL LAB Calcium - External 9.4 8.6 - 10.3 mg/dL EXTERNAL LAB Total Protein - External 6.8 6.1 - 8.1 g/dL EXTERNAL LAB Albumin - External 3.9 3.6 - 5.1 g/dL EXTERNAL LAB Total Bilirubin - External 0.5 0.2 - 1.2 mg/dL EXTERNAL LAB Alkaline Phos - External 67 35 - 144 U/L EXTERNAL LAB AST (SGOT) - External 21 10 - 35 U/L EXTERNAL LAB ALT (SGPT) - External 14 9 - 46 U/L EXTERNAL LAB 04/01/2025 8:11 AM CDT Narrative EXTERNAL LAB - 04/06/2025 4:59 PM CDT Verified by Kelly Dias on 04/06/2025. us Noe Keyes MD CHEMISTRY ORDERABLES Final [...] monitoring documented in this encounter Care Teams Manager Equipment Relationship Specialty Start Date End Date Juan Laguerre MD [address] [address] PCP - General Family Medicine 01/02/18 Aubrey Crabtree III, MD [address] [address] Hematology and Medical Oncology 10/01/18 Jaki Nieves, PhD [address] [facility] [address] [place] [address] Genetic Counseling 11/27/18 documented as of this encounter
--- OUTSIDE RECORDS SUMMARY | 2025-08-09 09:32 | XMS_ITS | Encounter Summary ---
Author Organization [facility] Address [address] [place] [address] Care Team Providers Care Cylinder Machine Operator Pulp Drier Name Role Phone Juan Laguerre MD Primary Care Provider [phone] Bro AWAN MD, Aubrey Lane Unavailable [phone] Jaki Nieves PhD Unavailable [phone] Source Comments In the event that this is information that is protected by federal Confidentiality of Substance User Disorder Patient Records, 42 CFR Part 2 prohibits the unauthorized disclosure of these records.[facility] Encounter Details Date Type Department Care Team (Late Contact Info) Description 04/26/2025 Orders Only NM Transplant Surgery [address] [facility], 19th Floor [address] [place] [address] Colleen Christy Social History Tobacco Use Types [...] [address], [address] [place], [place] [address] Apt confirmed-EH documented as of this encounter Visit Diagnoses Diagnosis 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 Type II diabetes mellitus with complication (CMS-HCC) Type II or unspecified type diabetes mellitus with unspecified complication, not stated as uncontrolled documented in this encounter Care Teams Cylinder Machine Operator Pulp Drier Relationship Specialty Start Date End Date Juan Laguerre MD [address] [facility] [address] [place] [address] PCP - General Family Medicine 01/02/18 Aubrey Crabtree III, MD [address] [facility] [address] [place] [address] Hematology and Medical Oncology 10/01/18 Jaki Nieves, PhD [address] [place], [place] [address] Genetic Counseling 11/27/18 documented as of this encounter
--- OUTSIDE RECORDS SUMMARY | 2025-08-09 09:32 | XMS_ITS ---
Author Organization [facility] Address [address] [place] [address] Care Team Providers Care Tank Tester Name Role Phone Juan Laguerre MD Primary Care Provider [phone] Bro AWAN MD, Aubrey Lane Unavailable [phone] Jaki Nieves PhD Unavailable [phone] Transplant Episode Kidney Recipient [facility] ([place], [place]) - [facility] Organ Received: Left Kidney Transplanted on 01/02/2008 Marked as Active Follow-up on 01/02/2008 Kidney CoordinatorTransplant Coordinator Phone: N/A Fax: N/A Email: N/A [place] Organ Diagnosis Organ Primary Contributory Kidney Diabetes Mellitus - Type II Rejection History Noted Survival Rejection Treatment Biopsy Resolved 01/02/2008 0 days Kidney transplant 01/02/2008 Infection History Noted Survival Infection Treatment Organism Resolved 07/31/2023 15 years 6 months COVID-19 in immunocompromised patient 11/27/2018 10 years 10 months BK viruria Donor Information Organ ABO Source Meets Risk Criteria HLA Match Mismatches Cross Match Left Kidney Transplanted O DBD No A: B: DR: Left Kidney Donor Serology Results EBV IgG EBV VCA [...] Quantiferon TB No results on file HCV Nya No results on file Anti-CMV CMV IgG: Positive CMV NYA No results on file HIV NYA No results on file Care Team Name Role Phone Fax Email Automation Tech Kidney Coordinator N/A N/A N/A Cathleen Gallegos MD Correction Officer [facility] [place] [facility] [phone] uJan Laguerre MD Referring Physician [phone] N/A Sam Hector MD dot compliance coordinator [phone] N/A Michelle Madera MD Surgeon [phone] N/A Nuria Pope MD Physician [phone] [email or web address] boris Hernandez Referring Wire Cutter [phone] N/A Events Post-Transplant Pre-Transplant Admitted: 01/02/2008 Center waitlisted: 8 Transplanted: 01/02/2008 Discharged: 01/05/2008 Dialysis History Dialysis History Start End Type Comments Center 01/04/2018 Maintenance (Type Unknown) [facility] Dialysis Center Information Center Phone Fax Address [facility] [phone] [facility] [place] [address]
--- OUTSIDE RECORDS SUMMARY | 2025-08-09 09:32 | XMS_ITS | Encounter Summary ---
Author Organization [facility] Address [address] [place] [address] Care Team Providers Care Turkey Picker Name Role Phone Juan Laguerre MD Primary Care Provider [phone] Bro AWAN MD, Aubrey Lane Unavailable [phone] Jaki Nieves PhD Unavailable [phone] Source Comments In the event that this is information that is protected by federal Confidentiality of Substance User Disorder Patient Records, 42 CFR Part 2 prohibits the unauthorized disclosure of these records.[facility] Encounter Details Date Type Department Care Team (Late Contact Info) Description 05/18/2019 Orders Only NM Transplant Surgery [address] [facility], 19th Floor [address] [place] [address] Renetta Henao Social History Tobacco Use Types [...] [facility], 19th Floor [address] [place] [address] Apt confirmed-EH documented as of this encounter [...] on 09/0109/01/2020 09/05/2020 09/25/2020 12: 31 AM EXCHANGE SPECIALIST documented as of this encounter Care Teams Turkey Picker Relationship Specialty Start Date End Date Juan Laguerre MD [address] [id number] PCP - General Family Medicine 01/02/18 Aubrey Crabtree III, MD [address] [address] Hematology and Medical Oncology 10/01/18 Jaki Nieves, PhD [address] [facility] [address] [place] [address] Genetic Counseling 11/27/18 documented as of this encounter
--- OUTSIDE RECORDS SUMMARY | 2025-08-09 09:32 | XMS_ITS | Encounter Summary ---
Author Organization [facility] Address [address] [place] [address] Care Team Providers Care Buildings And Grounds Superintendent Name Role Phone Juan Laguerre MD Primary Care Provider [phone] Bro AWAN MD, Aubrey Lane Unavailable [phone] Jaki Nieves PhD Unavailable [phone] Source Comments In the event that this is information that is protected by federal Confidentiality of Substance User Disorder Patient Records, 42 CFR Part 2 prohibits the unauthorized disclosure of these records.[facility] Reason for Visit * Reason Onset Date Comments Medications Refill 06/30/2019 Encounter Details Date Type Department Care Team (Late st Contact Info) Description 06/30/2019 Refill NM Transplant Surgery [address] [facility], 19th Floor [address] [place] [address] Cathleen Gallegos MD [address] [facility] [address], [place] [address] Medications Refill Social History Tobacco Use Types [...] Office Visit NM Transplant Surgery [address] [facility], 19th Floor [address] [place] [address] Apt confirmed-EH documented as of this encounter Visit Diagnoses Not on filedocumented in this encounter Additional Health Concerns Infection Onset Date Last Indicated Resolved Time COVID-19 Comment:Tested + on 09/0109/01/2020 09/05/2020 09/25/2020 12: 31 AM 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
--- OUTSIDE RECORDS SUMMARY | 2025-08-09 09:32 | XMS_ITS | Encounter Summary ---
Author Organization [facility] Address [address] [place] [address] Care Team Providers Care Furnace Repair Mechanic Name Role Phone Juan Laguerre MD Primary Care Provider [phone] Bro AWAN MD, Aubrey Lane Unavailable [phone] Jaki Nieves PhD Unavailable [phone] Source Comments In the event that this is information that is protected by federal Confidentiality of Substance User Disorder Patient Records, 42 CFR Part 2 prohibits the unauthorized disclosure of these records.[facility] Encounter Details Date Type Department Care Team (Late st Contact Info) Description 10/06/2018 Orders Only NM Transplant Surgery [address] [facility], 19th Floor [address] [place], [place] [address] Noe Keyes MD [address] [facility] [address] [address] Social History Tobacco Use Types Packs/Day Years [...] Transplant Surgery [address] [facility], 19th Floor [address] [place] [address] Apt confirmed-EH documented as of this encounter Visit Diagnoses Diagnosis Kidney transplanted Kidney replaced by transplant documented in this encounter Additional Health Concerns Infection Onset Date Last Indicated Resolved Time COVID-19 Comment:Tested + on 09/0109/01/2020 09/05/2020 09/25/2020 12: 31 AM 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
--- OUTSIDE RECORDS SUMMARY | 2025-08-09 09:32 | XMS_ITS | Encounter Summary ---
Author Organization [facility] Address [address] [place] [address] Care Team Providers Care Ophthalmic Lens Inspector Name Role Phone Juan Laguerre MD Primary Care Provider [phone] Bro AWAN MD, Aubrey Lane Unavailable [phone] Jaki Nieves PhD Unavailable [phone] Source Comments In the event that this is information that is protected by federal Confidentiality of Substance User Disorder Patient Records, 42 CFR Part 2 prohibits the unauthorized disclosure of these records.[facility] Encounter Details Date Type Department Care Team (Late st Contact Info) Description 10/27/2018 Orders Only NM Transplant Surgery [address] [facility], 19th Floor [address] [place], [place] [address] Noe Keyes MD [address] [facility] [address] [address] Social History Tobacco Use Types Packs/Day Years [...] Visit NM Transplant Surgery [address] [facility], 19th Floor [address] [place] [address] Apt confirmed-EH documented as of this encounter Procedures Procedure Name Priority Date/Time Associated Diagnosis Comments URINALYSIS WITH MICROSCOPIC Routine 10/31/2018 5:58 AM DIRECTOR MEDICAL CBC AND DIFFERENTIAL Routine 10/31/2018 5:58 AM DIRECTOR MEDICAL AST (SGOT) Routine 10/31/2018 5:58 AM DIRECTOR MEDICAL PROTEIN, TOTAL Routine 10/31/2018 5:58 AM DIRECTOR MEDICAL RENAL FUNCTION PANEL Routine 10/31/2018 5:58 AM DIRECTOR MEDICAL TACROLIMUS Routine 10/24/2018 5:58 AM DIRECTOR MEDICAL PROTEIN/CREAT RATIO, RANDOM URINE Routine 10/24/2018 5:56 AM DIRECTOR MEDICAL URINALYSIS WITH MICROSCOPIC Routine 10/24/2018 5:56 AM DIRECTOR MEDICAL CBC AND DIFFERENTIAL Routine 10/24/2018 5:56 AM DIRECTOR MEDICAL HEPATIC FUNCTION PANEL Routine 10/24/2018 5:56 AM DIRECTOR MEDICAL RENAL FUNCTION PANEL Routine 10/24/2018 5:56 AM DIRECTOR MEDICAL documented in this encounter Results * AST (SGOT) (10/31/2018 5:58 AM DIRECTOR MEDICAL) Blood specimen (specimen) 10/31/2018 5:58 AM DIRECTOR MEDICAL Narrative EXTERNAL LAB - 10/31/2018 3:58 PM DIRECTOR MEDICAL Verified by Natali Alvarenga on 10/31/2018. us Noe Keyes MD CHEMISTRY ORDERABLES Edited Result - Final EXTERNAL LAB * (ABNORMAL) Urinalysis with Microscopic (10/31/2018 5:58 AM DIRECTOR MEDICAL) Urine specimen (specimen) 10/31/2018 5:58 AM DIRECTOR MEDICAL Narrative EXTERNAL LAB - 10/31/2018 3:58 PM DIRECTOR MEDICAL Verified by Natali Alvarenga on 10/31/2018. Noe Keyes MD URINE ORDERABLES Edited Resu lt - Final Performing Organization Address [facility] Phone Number EXTERNAL LAB * Protein, total (10/31/2018 5:58 AM DIRECTOR MEDICAL) Blood specimen (specimen) 10/31/2018 5:58 AM DIRECTOR MEDICAL Narrative EXTERNAL LAB - 10/31/2018 3:58 PM DIRECTOR MEDICAL Verified by Natali Alvarenga on 10/31/2018. Noe Keyes MD CHEMISTRY ORDERABLES Edited Result - Final Performing Organization Address [facility] Phone Number EXTERNAL LAB * (ABNORMAL) Renal function panel (10/31/2018 5:58 AM DIRECTOR MEDICAL) Blood specimen (specimen) 10/31/2018 5:58 AM DIRECTOR MEDICAL Narrative EXTERNAL LAB - 10/31/2018 3:58 PM DIRECTOR MEDICAL Verified by Natali Alvarenga on 10/31/2018. Noe Keyes MD CHEMISTRY ORDERABLES Edited Result - Final Performing Organization Address [facility] Phone Number EXTERNAL LAB * (ABNORMAL) CBC with Differential (10/31/2018 5:58 AM DIRECTOR MEDICAL) Blood specimen (specimen) 10/31/2018 5:58 AM DIRECTOR MEDICAL Narrative EXTERNAL LAB - 10/31/2018 3:58 PM DIRECTOR MEDICAL Verified by Natali Alvarenga on 10/31/2018. us Noe Keyes MD HEMATOLOGY ORDERABLES Edited Result - Final Performing Organization Address [facility] de Phone Number EXTERNAL LAB * Tacrolimus (10/24/2018 5:58 AM DIRECTOR MEDICAL) Tacrolimus (FK506), Blood - External 5.2 EXTERNAL LAB 10/24/2018 5:58 AM DIRECTOR MEDICAL Narrative EXTERNAL LAB - 10/27/2018 2:36 PM DIRECTOR MEDICAL Verified by Galina Raza on 10/27/2018. us Cathleen Gallegos MD CHEMISTRY ORDERABLES Final Resul t Performing Organization Address City/[facility]/ZIP Co de Phone Number EXTERNAL LAB * (ABNORMAL) Protein /Creatinine Ratio, Urine (10/24/2018 5:56 AM DIRECTOR MEDICAL) Pathologist [facility] Protein, Urine - External 31.1(H) Negative EXTERNAL LAB Urine Creatinine, Random - External 38 EXTERNAL LAB Prot/Creat Ratio - External 0.82 EXTERNAL LAB 10/24/2018 5:56 AM DIRECTOR MEDICAL Narrative EXTERNAL LAB - 10/29/2018 2:05 PM DIRECTOR MEDICAL Verified by Monie Siddiqui on 10/29/2018. us Noe Keyes MD URINE ORDERABLES Final Resul t Performing Organization Address [facility] de Phone Number EXTERNAL LAB * Urinalysis with Microscopic (10/24/2018 5:56 AM DIRECTOR MEDICAL) Pathologist [facility] Specific [place], Urine - External 1.006 EXTERNAL LAB UA Leukocyte Esterase - External Negative EXTERNAL LAB UA Nitrate - External Negative Negative EXTERNAL LAB UA Ketones - External Negative Negative EXTERNAL LAB UA Color - External Yellow Yellow EXTERNAL LAB UA Appearance - External CLEAR Clear EXTERNAL LAB UA RBC - External 0-5 Negative EXTERNAL LAB UA Protein - External TRACE EXTERNAL LAB UA pH - External 6.5 EXTERNAL LAB UA WBC - External 0-5 EXTERNAL LAB UA Epithelial Casts - External OCC EXTERNAL LAB UA Bilirubin - External NEG EXTERNAL LAB UA Urobilinogen - External <2.0 EXTERNAL LAB UA Glucose - External TRACE EXTERNAL LAB 10/24/2018 5:56 AM DIRECTOR MEDICAL Narrative EXTERNAL LAB - 10/29/2018 2:05 PM DIRECTOR MEDICAL Verified by Monie Siddiqui on 10/29/2018. us Noe Keyes MD URINE ORDERABLES Final Resul t Performing Organization Address City/[facility]/ZIP Co de Phone Number EXTERNAL LAB * Hepatic function panel (10/24/2018 5:56 AM DIRECTOR MEDICAL) Total Protein - External 8.3 EXTERNAL LAB Albumin - External 3.6 EXTERNAL LAB AST (SGOT) - External 14 0 - 37 EXTERNAL LAB Alkaline Phos - External 81 EXTERNAL LAB ALT (SGPT) - External 18 EXTERNAL LAB Direct Bilirubin - External 0.4 EXTERNAL LAB 10/24/2018 5:56 AM DIRECTOR MEDICAL Narrative EXTERNAL LAB - 10/29/2018 2:05 PM DIRECTOR MEDICAL Verified by Monie Siddiqui on 10/29/2018. Noe Keyes MD CHEMISTRY ORDERABLES Final R esult Performing Organization Address City/[facility]/ZIP Co de Phone Number EXTERNAL LAB * Renal function panel (10/24/2018 5:56 AM DIRECTOR MEDICAL) Pathologist [facility] Sodium - External 134 EXTERNAL LAB Potassium - External 4.4 EXTERNAL LAB CO2 - External 24 21 - 92 EXTERNAL LAB Anion Gap - External 15.4 EXTERNAL LAB Glucose - External 220 EXTERNAL LAB Urea Nitrogen - External 20 EXTERNAL LAB Creatinine - External 1.30 EXTERNAL LAB Calcium - External 9.0 EXTERNAL LAB GFR(Others) - External 58 EXTERNAL LAB GFR() - External 58 EXTERNAL LAB Phosphorous - External 3.1 2.0 - 4.5 EXTERNAL LAB Chloride - External 99 EXTERNAL LAB 10/24/2018 5:56 AM DIRECTOR MEDICAL Narrative EXTERNAL LAB - 10/29/2018 2:05 PM DIRECTOR MEDICAL Verified by Monie Siddiqui on 10/29/2018. Noe Keyes MD CHEMISTRY ORDERABLES Final R esult EXTERNAL LAB * (ABNORMAL) CBC with Differential (10/24/2018 5:56 AM DIRECTOR MEDICAL) Hemoglobin - External 11.2 EXTERNAL LAB Hematocrit - External 37.1 EXTERNAL LAB Platelets - External 284 140 - 445 EXTERNAL LAB Lymphocytes - External 51 % EXTERNAL LAB Monocytes - External 6.5 % EXTERNAL LAB Neutrophils - External 3.10(L) 140 - 730 % EXTERNAL LAB Lymph Absolute - External 4.02 EXTERNAL LAB Basophil Absolute - External 0.12 EXTERNAL LAB Eosinophils - External 0.31 EXTERNAL LAB White Blood Cells - External 7.88 EXTERNAL LAB Red Blood Cells - External 4.92 EXTERNAL LAB MCV - External 75.4 EXTERNAL LAB MCH - External 22.8 EXTERNAL LAB MCHC - External 30.2 EXTERNAL LAB Basophils - External 1.5 EXTERNAL LAB Neutrophils Abs (cells/uL) - External 3.10 EXTERNAL LAB Benzie Absolute - External 0.51 EXTERNAL LAB - External 0.11 EXTERNAL LAB 10/24/2018 5:5 6 AM DIRECTOR MEDICAL Narrative EXTERNAL LAB - 10/29/2018 2:05 PM DIRECTOR MEDICAL Verified by Monie Siddiqui on 10/29/2018. us Noe Keyes MD HEMATOLOGY ORDERABLES Final Result EXTERNAL LAB documented in this encounter Visit Diagnoses Diagnosis Kidney transplanted Kidney replaced by transplant documented in this encounter Additional Health Concerns Infection Onset Date Last Indicated Resolved Time COVID-19 Comment:Tested + on 09/0109/01/2020 09/05/2020 09/25/2020 12: 31 AM DIRECTOR MEDICAL documented as of this encounter Care Teams Ophthalmic Lens Inspector Relationship Specialty Start Date End Date Juan Laguerre MD [address] [facility] [address] [place] [address] PCP - General Family Medicine 01/02/18 Aubrey Crabtree III, MD [address] [facility] [address] [place] [address] Hematology and Medical Oncology 10/01/18 Jaki Nieves, PhD [address] [facility] [address] [place] [address] Genetic Counseling 11/27/18 documented as of this encounter
--- OUTSIDE RECORDS SUMMARY | 2025-08-09 09:32 | XMS_ITS | Encounter Summary ---
Author Organization [facility] Address [address] [place] [address] Care Team Providers Care Control System Manager Name Role Phone Juan Laguerre MD Primary Care Provider [phone] Bro AWAN MD, Aubrey Lane Unavailable [phone] Jaki Nieves PhD Unavailable [phone] Source Comments In the event that this is information that is protected by federal Confidentiality of Substance User Disorder Patient Records, 42 CFR Part 2 prohibits the unauthorized disclosure of these records.[facility] Encounter Details Date Type Department Care Team (Late Contact Info) Description 05/10/2025 Orders Only NM Transplant Surgery [address] [facility], 19th Floor [address] [place] [address] Colleen Christy Social History Tobacco Use Types [...] [address], [address] [place], [place] [address] Apt confirmed-EH documented as of this encounter Visit Diagnoses Diagnosis 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 Type II diabetes mellitus with complication (CMS-HCC) Type II or unspecified type diabetes mellitus with unspecified complication, not stated as uncontrolled documented in this encounter Care Teams Control System Manager Relationship Specialty Start Date End Date Juan Laguerre MD [address] [facility] [address] [place] [address] PCP - General Family Medicine 01/02/18 Aubrey Crabtree III, MD [address] [facility] [address] [place] [address] Hematology and Medical Oncology 10/01/18 Jaki Nieves, PhD [address] [place], [place] [address] Genetic Counseling 11/27/18 documented as of this encounter
--- OUTSIDE RECORDS SUMMARY | 2025-08-09 09:32 | XMS_ITS | Encounter Summary ---
Author Organization [facility] Address [address] [place] [address] Care Team Providers Care Contracts Attorney Name Role Phone Juan Laguerre MD Primary Care Provider [phone] Bro AWAN MD, Aubrey Lane Unavailable [phone] Jaki Nieves PhD Unavailable [phone] Source Comments In the event that this is information that is protected by federal Confidentiality of Substance User Disorder Patient Records, 42 CFR Part 2 prohibits the unauthorized disclosure of these records.[facility] Encounter Details Date Type Department Care Team (Late Contact Info) Description 07/20/2019 Orders Only NM Transplant Surgery [address] 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
--- OUTSIDE RECORDS SUMMARY | 2025-08-09 09:32 | XMS_ITS | Encounter Summary ---
Author Organization [facility] Address [address] [place] [address] Care Team Providers Care Drug Coordinator Name Role Phone Juan Laguerre MD Primary Care Provider [phone] Bro AWAN MD, Aubrey Lane Unavailable [phone] Jaki Nieves PhD Unavailable [phone] Source Comments In the event that this is information that is protected by federal Confidentiality of Substance User Disorder Patient Records, 42 CFR Part 2 prohibits the unauthorized disclosure of these records.[facility] Encounter Details Date Type Department Care Team (Late st Contact Info) Description 01/25/2025 Orders Only NM Transplant Surgery [address] [facility], [address]th Floor [address] [place], [place] [address] Cathleen Gallegos MD [address] [facility] [address] [address] Social History Tobacco Use Types Packs/Day Years [...] [address] [facility], 19th Floor [address] [place], [place] [address] Apt confirmed-EH documented as of this encounter Visit Diagnoses Diagnosis Kidney replaced by transplant documented in this encounter Care Teams Drug Coordinator Relationship Specialty Start Date End Date Juan Laguerre MD [address] [facility] [address] [place] [address] PCP - General Family Medicine 01/02/18 Aubrey Crabtree III, MD [address] [facility] [address] [place] [address] Hematology and Medical Oncology 10/01/18 Jaki Nieves, PhD [address] [facility] [address] [place], [place] [address] Genetic Counseling 11/27/18 documented as of this encounter
--- OUTSIDE RECORDS SUMMARY | 2025-08-09 09:32 | XMS_ITS | Encounter Summary ---
Author Organization [facility] Address [address] [place] [address] Care Team Providers Care Or Manager Name Role Phone Juan Laguerre MD Primary Care Provider [phone] Bro AWAN MD, Aubrey Lane Unavailable [phone] Jaki Nieves PhD Unavailable [phone] Source Comments In the event that this is information that is protected by federal Confidentiality of Substance User Disorder Patient Records, 42 CFR Part 2 prohibits the unauthorized disclosure of these records.[facility] Encounter Details Date Type Department Care Team (Late Contact Info) Description 05/18/2019 Orders Only NM Transplant Surgery [address] [facility], 19th Floor [address] [place] [address] Evelin Fontenot RN Social History Tobacco Use [...] Visit NM Transplant Surgery [address] [facility] [address] [place] [address] Apt confirmed-EH documented as of this encounter Procedures Procedure Name Priority Date/Time Associated Diagnosis Comments EVEROLIMUS LEVEL Routine 05/21/2019 1:36 PM CDT documented in this encounter Results * Everolimus Level (05/21/2019 1:36 PM CDT) Everolimus Level - External 6.3 EXTERNAL LAB 05/21/2019 1:36 PM CDT Narrative EXTERNAL LAB - 07/03/2019 [...] on 09/0109/01/2020 09/05/2020 09/25/2020 12: 31 AM P 3 ARMAMENT/ORDNANCE IMA TECHNICIAN documented as of this encounter Care Teams Or Manager Relationship Specialty Start Date End Date Juan Laguerre MD [address] [facility] [address] [place] [address] PCP - General Family Medicine 01/02/18 Aubrey Crabtree III, MD [address] [facility] [address] [place], [place] [phone] Hematology and Medical Oncology 10/01/18 Jaki Nieves, PhD [address] [facility] [address] [place] [address] Genetic Counseling 11/27/18 documented as of this encounter
--- OUTSIDE RECORDS SUMMARY | 2025-08-09 09:32 | XMS_ITS | Encounter Summary ---
Author Organization [facility] Address [address] [place] [address] Care Team Providers Care Screen Tender Helper Name Role Phone Juan Laguerre MD Primary Care Provider [phone] Bro AWAN MD, Aubrey Lane Unavailable [phone] Jaki Nieves PhD Unavailable [phone] Source Comments In the event that this is information that is protected by federal Confidentiality of Substance User Disorder Patient Records, 42 CFR Part 2 prohibits the unauthorized disclosure of these records.[facility] Encounter Details Date Type Department Care Team (Late Contact Info) Description 01/11/2025 Orders Only NM Transplant Surgery [address] [facility], 19th [address] [place] [address] Joshua Bee RN Social History Tobacco Use [...] Office Visit NM Transplant Surgery [address] [facility], 19th [address] [place], [place] [address] Apt confirmed-EH documented as of this encounter Visit Diagnoses Diagnosis 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 transplant Adenocarcinoma of pancreas (CMS-HCC) Malignant neoplasm of pancreas, part unspecified documented in this encounter Care Teams Screen Tender Helper Relationship Specialty Start Date End Date Juan Laguerre MD [address] [facility] [address] [place] [phone] PCP - General Family Medicine 01/02/18 Aubrey Crabtree III, MD [address] [facility] [address] [place] [address] Hematology and Medical Oncology 10/01/18 Jaki Nieves, PhD [address] [facility] [address] [place] [address] Genetic Counseling 11/27/18 documented as of this encounter
--- OUTSIDE RECORDS SUMMARY | 2025-08-09 09:33 | XMS_ITS | Encounter Summary ---
Author Organization [facility] Address [address] [place] [address] Care Team Providers Care Heavy Rail Train Operator Name Role Phone Juan Laguerre MD Primary Care Provider [phone] Bro AWAN MD, Aubrey Lane Unavailable [phone] Jaki Nieves PhD Unavailable [phone] Source Comments In the event that this is information that is protected by federal Confidentiality of Substance User Disorder Patient Records, 42 CFR Part 2 prohibits the unauthorized disclosure of these records.[facility] Encounter Details Date Type Department Care Team (Late Contact Info) Description 09/28/2019 Orders Only NM Transplant Surgery [address] [facility], 19th Floor [address] [place] [address] Renetta Henao Social History Tobacco Use Types [...] [address], [address] [place] [address] Apt confirmed-EH documented as of this encounter Procedures Procedure Name Priority Date/Time Associated Diagnosis Comments BK VIRUS QUANT VIRAL LOAD, URINE Routine 10/08/2019 8:58 AM FISHERIES OFFICER PTH, INTACT Routine 10/08/2019 8:58 AM FISHERIES OFFICER VITAMIN D 25-HYDROXY Routine 10/08/2019 8:58 AM FISHERIES OFFICER PROTEIN/CREAT RATIO, RANDOM URINE Routine 10/08/2019 8:58 AM FISHERIES OFFICER URINALYSIS WITH MICROSCOPIC Routine 10/08/2019 8:58 AM FISHERIES OFFICER CBC AND DIFFERENTIAL Routine 10/08/2019 8:58 AM FISHERIES OFFICER HEMOGLOBIN A1C Routine 10/08/2019 8:58 AM FISHERIES OFFICER HEPATIC FUNCTION PANEL Routine 10/08/2019 8:58 AM FISHERIES OFFICER RENAL FUNCTION PANEL Routine 10/08/2019 8:58 AM FISHERIES OFFICER LIPID PANEL (AMA) W/LDL CALC Routine 10/08/2019 8:58 AM FISHERIES OFFICER documented in this encounter Results * (ABNORMAL) Hepatic function panel (10/08/2019 8:58 AM FISHERIES OFFICER) Total Bilirubin - External 0.4 0.3 - 1.0 EXTERNAL LAB Direct Bilirubin - External 0.07 0.03 - 0.18 EXTERNAL LAB Alkaline Phos - External 77 34 - 104 EXTERNAL LAB AST (SGOT) - External 19 13 - 39 EXTERNAL LAB ALT (SGPT) - External 19 7 - 52 EXTERNAL LAB Albumin - External 6.9(H) 3.5 - 5.7 EXTERNAL LAB Total Protein - External 3.7 EXTERNAL LAB 10/08/2019 8:58 AM FISHERIES OFFICER Narrative EXTERNAL LAB - 10/15/2019 2:04 PM FISHERIES OFFICER Verified by Monie Siddiqui on 10/15/2019. Cathleen Gallegos MD CHEMISTRY ORDERABLES Final Resul t Performing Organization Address City/[facility]/ZIP Co de Phone Number EXTERNAL LAB * (ABNORMAL) Renal function panel (10/08/2019 8:58 AM FISHERIES OFFICER) Phosphorous - External 2.9 2.5 - 4.6 mg/dL EXTERNAL LAB Glucose - External 297(H) 70 - 105 EXTERNAL LAB Urea Nitrogen - External 34(H) 7 - 25 EXTERNAL LAB Creatinine - External 1.7(H) 0.7 - 1.3 mg/dL EXTERNAL LAB Sodium - External 133(L) 136 - 145 EXTERNAL LAB Potassium - External 4.9 3.5 - 5.1 mEq/L EXTERNAL LAB Chloride - External 100 98 - 107 mEq/L EXTERNAL LAB CO2 - External 25 EXTERNAL LAB Calcium - External 8.5(L) 8.6 - 10.2 EXTERNAL LAB Anion Gap - External 12.9 7.0 - 15.0 EXTERNAL LAB GFR(Others) - External 41.5(L) >60.0 ml/min EXTERNAL LAB GFR() - External 50.2 ml/min EXTERNAL LAB 10/08/2019 8:58 AM FISHERIES OFFICER Narrative EXTERNAL LAB - 10/15/2019 2:04 PM FISHERIES OFFICER Verified by Monie Siddiqui on 10/15/2019. Cathleen Gallegos MD CHEMISTRY ORDERABLES Final Resul t Performing Organization Address City/[facility]/ZIP Co de Phone Number EXTERNAL LAB * (ABNORMAL) CBC with Differential (10/08/2019 8:58 AM FISHERIES OFFICER) White Blood Cells - External 9.6 4.0 - 10.0 EXTERNAL LAB Hemoglobin - External 15.2 13.7 - 17.5 g/dL EXTERNAL LAB Hematocrit - External 49.4 40.1 - 51.0 % EXTERNAL LAB Platelets - External 181 EXTERNAL LAB Red Blood Cells - External 6.39(H) 4.63 - 6.08 10*6/uL EXTERNAL LAB MCV - External 77(L) 79 - 95 fL EXTERNAL LAB MCH - External 23.8 EXTERNAL LAB MCHC - External 30.8 EXTERNAL LAB Basophil Absolute - External 96 EXTERNAL LAB RDW - External 16.6(H) 11.6 - 14.49 % EXTERNAL LAB Neutrophils Abs (cells/uL) - External 5,664 cells/uL EXTERNAL LAB Lymph Absolute - External 2,400 cells/uL EXTERNAL LAB Valley Absolute - External 1,344(H) 0 - 1.200 cells/uL EXTERNAL LAB - External 96 0 - 300 cells/uL EXTERNAL LAB Lymphocytes - External 25 19 - 40 % EXTERNAL LAB Monocytes - External 14(H) 4 - 12.94 % EXTERNAL LAB Eosinophils - External 1 0 - 3 % EXTERNAL LAB Basophils - External 1 EXTERNAL LAB Neutrophils - External 57 EXTERNAL LAB 10/08/2019 8:58 AM FISHERIES OFFICER Narrative EXTERNAL LAB - 10/15/2019 2:04 PM FISHERIES OFFICER Verified by Monie Siddiqui on 10/15/2019. Cathleen Gallegos MD HEMATOLOGY ORDERABLES Final Resu lt EXTERNAL LAB * (ABNORMAL) Urinalysis with Microscopic (10/08/2019 8:58 AM FISHERIES OFFICER) UA Color - External Yellow Yellow EXTERNAL LAB UA Appearance - External Clear Clear EXTERNAL LAB UA Glucose - External 1+(A) mg/dL EXTERNAL LAB UA Bilirubin - External NEG mg/dL EXTERNAL LAB UA Ketones - External NEG mg/dL EXTERNAL LAB Specific [place], Urine - External 1.015 1.015 - 1.020 EXTERNAL LAB UA Protein - External 1+ mg/dL EXTERNAL LAB UA Urobilinogen - External 0.2 0.2 - 1 EXTERNAL LAB UA pH - External 6.0 EXTERNAL LAB UA Nitrate - External NEG EXTERNAL LAB UA Squamous Epithelial Cells - External Rare Few EXTERNAL LAB UA Hyaline Cast - External None None /LPF EXTERNAL LAB UA Bacteria - External None None /HPF EXTERNAL LAB UA WBC - External 0-2 0 - 4 /HPF EXTERNAL LA B UA Leukocyte Esterase - External NEG EXTERNAL LAB UA RBC - External 0-2 EXTERNAL LAB 10/08/2019 8:58 AM FISHERIES OFFICER Narrative EXTERNAL LAB - 10/15/2019 2:04 PM FISHERIES OFFICER Verified by Monie Siddiqui on 10/15/2019. us Cathleen Gallegos MD URINE ORDERABLES Final Result Performing Organization Address [facility] de Phone Number EXTERNAL LAB * (ABNORMAL) Lipid Panel(AMA) w/LDL Calculated (10/08/2019 8:58 AM FISHERIES OFFICER) Total Cholesterol - External 234(H) 0 - 200 mg/dL EXTERNAL LAB Triglycerides - External 403(H) 0 - 150 mg/dL EXTERNAL LAB HDL Cholesterol - External 33 23 - 92 mg/dL EXTERNAL LAB Cholesterol LDL Direct - External SEE NOTE mg/dL EXTERNAL LAB 10/08/2019 8:58 AM FISHERIES OFFICER Narrative EXTERNAL LAB - 10/15/2019 2:04 PM FISHERIES OFFICER Verified by Monie Siddiqui on 10/15/2019. us Cathleen Gallegos MD CHEMISTRY ORDERABLES Final Resul t Performing Organization Address [facility] de Phone Number EXTERNAL LAB * (ABNORMAL) PTH,Intact (10/08/2019 8:58 AM FISHERIES OFFICER) PTH, Intact - External 115(H) 15 - 65 PG/ML EXTERNAL LAB 10/08/2019 8:58 AM FISHERIES OFFICER Narrative EXTERNAL LAB - 10/15/2019 2:04 PM FISHERIES OFFICER Verified by Monie Siddiqui on 10/15/2019. us Cathleen Gallegos MD CHEMISTRY ORDERABLES Final Resul t Performing Organization Address [facility] de Phone Number EXTERNAL LAB * (ABNORMAL) Vitamin D 25-Hydroxy (10/08/2019 8:58 AM FISHERIES OFFICER) Vitamin D, 25-Hydroxy, Total - External 26.9(L) 30.0 - 100.0 EXTERNAL LAB 10/08/2019 8:58 AM FISHERIES OFFICER Narrative EXTERNAL LAB - 10/15/2019 2:04 PM FISHERIES OFFICER Verified by Monie Siddiqui on 10/15/2019. us Cathleen Gallegos MD CHEMISTRY ORDERABLES Final Resul t Performing Organization Address City/[facility] Co de Phone Number EXTERNAL LAB * (ABNORMAL) Hemoglobin A1c (10/08/2019 8:58 AM FISHERIES OFFICER) Hemoglobin A1C - External 11.8(H) 4.8 - 5.6 % EXTERNAL LAB 10/08/2019 8:58 AM FISHERIES OFFICER Narrative EXTERNAL LAB - 10/15/2019 2:04 PM FISHERIES OFFICER Verified by Monie Siddiqui on 10/15/2019. us Cathleen Gallegos MD CHEMISTRY ORDERABLES Final Resul t EXTERNAL LAB * (ABNORMAL) Protein /Creatinine Ratio, Urine (10/08/2019 8:58 AM FISHERIES OFFICER) Urine Creatinine, Random - External 107.8 EXTERNAL LAB Protein, Urine - External 74.4 EXTERNAL LAB Prot/Creat Ratio - External 690(H) 0 - 200 EXTERNAL LAB 10/08/2019 8:58 AM FISHERIES OFFICER Narrative EXTERNAL LAB - 10/15/2019 2:04 PM FISHERIES OFFICER Verified by Monie Siddiqui on 10/15/2019. us Cathleen Gallegos MD URINE ORDERABLES Final Result Performing Organization Address City/[facility]/ZIP Co de Phone Number EXTERNAL LAB * BK Virus Quant Viral Load, Urine (10/08/2019 8:58 AM FISHERIES OFFICER) BK Quantitation Urine - External 10,300 EXTERNAL LAB 10/08/2019 8:58 AM FISHERIES OFFICER Narrative EXTERNAL LAB - 10/15/2019 2:04 PM FISHERIES OFFICER Verified by Monie Siddiqui on 10/15/2019. us Cathleen Gallegos MD URINE ORDERABLES Final [...] Indicated Resolved Time COVID-19 Comment:Tested + on 10/29 09/01/2020 09/05/2020 09/25/2020 12: 31 AM FISHERIES OFFICER documented as of this encounter Care Teams Heavy Rail Train Operator Relationship Specialty Start Date End Date Juan Laguerre MD [address] [facility] [address] [place] [phone] PCP - General Family Medicine 01/02/18 Aubrey Crabtree III, MD [address] [facility] [address] [place] [address] Hematology and Medical Oncology 10/01/18 Jaki Nieves, PhD [address] [facility] [address] [place] [address] Genetic Counseling 11/27/18 documented as of this encounter
--- OUTSIDE RECORDS SUMMARY | 2025-08-09 09:33 | XMS_ITS | Encounter Summary ---
Author Organization [facility] Address [address] [place] [address] Care Team Providers Care Nuclear Medicine Officer Name Role Phone Juan Laguerre MD Primary Care Provider [phone] Bro AWAN MD, Aubrey Lane Unavailable [phone] Jaki Nieves PhD Unavailable [phone] Source Comments In the event that this is information that is protected by federal Confidentiality of Substance User Disorder Patient Records, 42 CFR Part 2 prohibits the unauthorized disclosure of these records.[facility] Encounter Details Date Type Department Care Team (Latest Contact Info) Description 07/14/2018 FS Transcribe Orders NM Transplant Surgery [address] [facility], [address]th [address] [place], [place] [address] Rell Painting MD [address] [facility] [address], [place] [address] Acute pancreatitis, unspecified complication status, unspecified pancreatitis type (Primary Dx) Social History Tobacco Use Types Packs/Day Years [...] [facility], [address] [place] [address] Apt confirmed-EH documented as of this encounter Visit Diagnoses Diagnosis Acute pancreatitis, unspecified complication status, unspecified pancreatitis type- Primary documented in this encounter Additional Health Concerns Infection Onset Date Last Indicated Resolved Time COVID-19 Comment:Tested + on 09/0109/01/2020 09/05/2020 09/25/2020 12: 31 AM INJECTION MOLDING ENGINEER documented as of this encounter Care Teams Nuclear Medicine Officer Relationship Specialty Start Date End Date Juan Laguerre MD [address] [facility] [address] [place] [phone] PCP - General Family Medicine 01/02/18 Aubrey Crabtree III, MD [address] [facility] [address] [place] [address] Hematology and Medical Oncology 10/01/18 Jaki Nieves, PhD [address] [facility] [address] [place] [address] Genetic Counseling 11/27/18 documented as of this encounter
--- OUTSIDE RECORDS SUMMARY | 2025-08-09 09:33 | XMS_ITS | Encounter Summary ---
Author Organization [facility] Address [address] [place] [address] Care Team Providers Care Legal Consultant Name Role Phone Juan Laguerre MD Primary Care Provider [phone] Bro AWAN MD, Aubrey Lane Unavailable [phone] Jaki Nieves PhD Unavailable [phone] Source Comments In the event that this is information that is protected by federal Confidentiality of Substance User Disorder Patient Records, 42 CFR Part 2 prohibits the unauthorized disclosure of these records.[facility] Encounter Details Date Type Department Care Team (Late st Contact Info) Description 09/30/2018 Orders Only NM Transplant Surgery [address] [facility], 19th [address] [place], [place] [address] Makayla Cesar, PRESS OPERATOR AUTOMATIC, SUPERVISOR STATEMENT CLERKS [address] [facility] [address] [place] [address] Social History Tobacco Use Types Packs/Day Years [...] [facility], [address] [place] [address] Apt confirmed-EH documented as of this encounter Visit Diagnoses Diagnosis Liver transplant recipient (CMS-HCC) documented in this encounter Additional Health Concerns Infection Onset Date Last Indicated Resolved Time COVID-19 Comment:Tested + on 09/0109/01/2020 09/05/2020 09/25/2020 12: 31 AM HOEING ROW BOSS documented as of this encounter Care Teams Legal Consultant Relationship Specialty Start Date End Date Juan Laguerre MD [address] [facility] [address] [place] [id number] PCP - General Family Medicine 01/02/18 Aubrey Crabtree III, MD [address] [facility] [address] [place] [address] Hematology and Medical Oncology 10/01/18 Jaki Nieves, PhD [address] [facility] [address] [place] [address] Genetic Counseling 11/27/18 documented as of this encounter
--- OUTSIDE RECORDS SUMMARY | 2025-08-09 09:33 | XMS_ITS | Encounter Summary ---
Author Organization [facility] Address [address] [place] [address] Care Team Providers Care Manager Company Name Role Phone Juan Laguerre MD Primary Care Provider [phone] Bro AWAN MD, Aubrey Lane Unavailable [phone] Jaki Nieves PhD Unavailable [phone] Source Comments In the event that this is information that is protected by federal Confidentiality of Substance User Disorder Patient Records, 42 CFR Part 2 prohibits the unauthorized disclosure of these records.[facility] Encounter Details Date Type Department Care Team (Late Contact Info) Description 07/18/2020 Orders Only NM Transplant Surgery [address] [facility], 19th Floor [address] [place] [address] Vivi Ponce Social History Tobacco Use Types Packs/Day Years [...] [address], [address] [place] [address] Apt confirmed-EH documented as of this encounter Procedures Procedure Name Priority Date/Time Associated Diagnosis Comments CBC AND DIFFERENTIAL Routine 07/21/2020 6:16 AM CDT PTH, INTACT Routine 07/21/2020 5:51 AM CDT MYCOPHENOLIC ACID Routine 07/21/2020 5:5 1 AM CDT VITAMIN D 25-HYDROXY Routine 07/21/2020 5:51 AM CDT BK VIRUS DNA QUANT PCR, BLOOD Routine 07/21/2020 5:51 AM CDT URINALYSIS WITH MICROSCOPIC Routine 07/21/2020 5:51 AM CDT LIPID PANEL (AMA) W/LDL CALC Routine 07/21/2020 5:51 AM CDT COMPREHENSIVE METABOLIC PANEL Routine 07/21/2020 5:51 AM CDT documented in this encounter Results * (ABNORMAL) CBC with Differential (07/21/2020 6:16 AM CDT) White Blood Cells - External 10.14 10(3)/mcL EXTERNAL LAB Red Blood Cells - External 6.56(H) 10(6)/mcL EXTERNAL LAB Hemoglobin - External 15.8 g/dL EXTERNAL LAB Hematocrit - External 52.6(H) 39.8 - 52.2 % EXTERNAL LAB MCV - External 80.2 fL EXTERNAL LAB MCH - External 24.1(L) pg EXTERNAL LAB MCHC - External 30.0(L) 31.5 - 36.0 g/dL EXTERNAL LAB Platelets - External 240 140 - 445 10(3)/mcL EXTERNAL LAB RDW - External 19.9 12.0 - 150 % EXTERNAL LAB Neutrophils - External 50.0 % EXTERNAL LAB Lymphocytes - External 34.4 % EXTERNAL LAB Monocytes - External 11.2 % EXTERNAL LAB Eosinophils - External 3.0 % EXTERNAL LAB Neutrophils Abs (cells/uL) - External 5.07 1.40 - 7.30 10(3)/mcL EXTERNAL LAB Lymph Absolute - External 3.49(H) 10(3)/mcL EXTERNAL LAB [place] Absolute - External 1.14(H) 0.10 - 0.80 10(3)/mcL EXTERNAL LAB - External 0.30 0.00 - 0.30 10(3)/mcL EXTERNAL LAB Basophil Absolute - External 0.13(H) 0.00 - 0 10(3)/mcL EXTERNAL LAB Basophils - External 1.3 EXTERNAL LAB 07/21/2020 6:16 AM CDT Narrative EXTERNAL LAB - 07/21/2020 12:48 PM CDT Verified by Koki Burks on 07/21/2020. Physician Non-Staff HEMATOLOGY ORDERABLES Final Result Performing Organization Address [facility]/ZIP Co de Phone Number EXTERNAL LAB * BK Virus DNA Quant PCR, Blood (07/21/2020 5:51 AM CDT) BK Virus DNA, Qn PCR - External DET EXTERNAL LAB 07/21/2020 5:51 AM CDT Narrative EXTERNAL LAB - 07/27/2020 7:26 AM CDT Verified by Monie Siddiqui on 07/27/2020. Edwin Del Toro MD IMMUNOLOGY ORDERABLES Joana l Result Performing Organization Address [facility]/ZIP Co de Phone Number EXTERNAL LAB * Mycophenolic Acid (07/21/2020 5:51 AM CDT) Mycophenolic Acid - External 3.4 1.0 - 3.5 ug/mL EXTERNAL LAB 07/21/2020 5:51 AM CDT Narrative EXTERNAL LAB - 07/26/2020 1:04 PM CDT Verified by Monie Siddiqui on 07/26/2020. Edwin Del Toro MD CHEMISTRY ORDERABLES Final Result Performing Organization Address City/[facility]/ZIP Co de Phone Number EXTERNAL LAB * Vitamin D 25-Hydroxy (07/21/2020 5:51 AM CDT) Vitamin D, 25-Hydroxy, Total - External 30 ng/mL EXTERNAL LAB 07/21/2020 5:51 AM CDT Narrative EXTERNAL LAB - 07/21/2020 12:48 PM CDT Verified by Koki Burks on 07/21/2020. Physician Non-Staff CHEMISTRY ORDERABLES Final R esult EXTERNAL LAB * (ABNORMAL) Urinalysis with microscopic (07/21/2020 5:51 AM CDT) Specific [place], Urine - External 1.013 EXTERNAL LAB UA pH - External 6.0 [...] - External Clear Clear EXTERNAL LAB UA Hyaline Cast - External 2-5(A) Occasional /LPF EXTERNAL LAB UA Ketones - External NEG EXTERNAL LAB UA Blood - External NEG EXTERNAL LAB UA RBC - External 0-5 EXTERNAL LAB 07/21/2020 5:51 AM CDT Narrative EXTERNAL LAB - 07/21/2020 12:48 PM CDT Verified by Koki Burks on 07/21/2020. Physician Non-Staff URINE ORDERABLES Final Resul t EXTERNAL LAB * (ABNORMAL) PTH,Intact (07/21/2020 5:51 AM CDT) PTH, Intact - External 88(H) 14 - 72 pg/mL EXTERNAL LAB 07/21/2020 5:51 AM CDT Narrative EXTERNAL LAB - 07/21/2020 12:48 PM CDT Verified by Koki Burks on 07/21/2020. us Physician Non-Staff CHEMISTRY ORDERABLES Final R esult EXTERNAL LAB * (ABNORMAL) Lipid Panel(AMA) w/LDL Calculated (07/21/2020 5:51 AM CDT) Total Cholesterol - External 207(H) 0 - 199 mg/dL EXTERNAL LAB Triglycerides - External 450(H) 0 - 149 mg/dL EXTERNAL LAB HDL Cholesterol - External 39(L) 40 - 100 mg/dL EXTERNAL LAB Cholesterol LDL Direct - External 93 <130 mg/dL EXTERNAL LAB 07/21/2020 5:51 AM CDT Narrative EXTERNAL LAB - 07/21/2020 12:48 PM CDT Verified by Koki Burks on 07/21/2020. Physician Non-Staff CHEMISTRY ORDERABLES Final R esult EXTERNAL LAB * (ABNORMAL) Comp Metabolic Panel (07/21/2020 5:51 AM CDT) Sodium - External 136 133 - 145 mmol/L EXTERNAL LAB Potassium - External 5.0 3.5 - 5.1 mmol/L EXTERNAL LAB Chloride - External 104 96 - 108 mmol/L EXTERNAL LAB CO2 - External 28 21 - 32 mmol/L EXTERNAL LAB Anion Gap - External 9.0(L) 10.0 - 20.0 mmol/L EXTERNAL LAB Glucose - External 166(H) 70 - 105 mg/dL EXTERNAL LAB Urea Nitrogen - External 26(H) 6 - 19 mg/dL EXTERNAL LAB Creatinine - External 1.60(H) 0.50 - 1.30 mg/dL EXTERNAL LAB Total Protein - External 7.2 g/dL EXTERNAL LAB Albumin - External 3.3(L) g/dL EXTERNAL LAB Total Bilirubin - External 0.4 0.0 - 1.0 mg/dL EXTERNAL LAB AST (SGOT) - External 22 0 - 37 U/L EXTERNAL LAB ALT (SGPT) - External 28 u/L EXTERNAL LAB Alkaline Phos - External 88 39 - 117 U/L EXTERNAL LAB GFR(Others) - External 44 EXTERNAL LAB GFR() - External 51(L) >=60 EXTERNAL LAB Calcium - External 8.7 EXTERNAL LAB 07/21/2020 5:51 AM CDT Narrative EXTERNAL LAB - 07/21/2020 12:48 PM CDT Verified by Koki Burks on 07/21/2020. 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
--- OUTSIDE RECORDS SUMMARY | 2025-08-09 09:33 | XMS_ITS | Encounter Summary ---
Author Organization [facility] Address [address] [place] [address] Care Team Providers Care Political Aide Name Role Phone Juan Laguerre MD Primary Care Provider [phone] Bro AWAN MD, Aubrey Lane Unavailable [phone] Jaki Nieves PhD Unavailable [phone] Source Comments In the event that this is information that is protected by federal Confidentiality of Substance User Disorder Patient Records, 42 CFR Part 2 prohibits the unauthorized disclosure of these records.[facility] Encounter Details Date Type Department Care Team (Late Contact Info) Description 04/25/2020 Orders Only NM Transplant Surgery [address] [facility], 19th Floor [address] [place] [address] Vivi Ponce Social History Tobacco Use Types [...] [address], [address] [place] [address] Apt confirmed-EH documented as of this encounter Procedures Procedure Name Priority Date/Time Associated Diagnosis Comments PTH, INTACT Routine 05/06/2020 7:26 AM CDT MYCOPHENOLIC ACID Routine 05/06/2020 7:2 6 AM CDT VITAMIN D 25-HYDROXY Routine 05/06/2020 7:26 AM CDT BK VIRUS DNA QUANT PCR, BLOOD Routine 05/06/2020 7:26 AM CDT URINALYSIS WITH MICROSCOPIC Routine 05/06/2020 7:26 AM CDT CBC AND DIFFERENTIAL Routine 05/06/2020 7:26 AM CDT HEPATIC FUNCTION PANEL Routine 05/06/2020 7:26 AM CDT LIPID PANEL (AMA) W/LDL CALC Routine 05/06/2020 7:26 AM CDT BASIC METABOLIC PANEL Routine 05/06/2020 7:26 AM CDT documented in this encounter Results * BK Virus DNA Quant PCR, Blood (05/06/2020 7:26 AM CDT) BK Virus DNA, Qn PCR - External DETECTED EXTERNAL LAB 05/06/2020 7:26 AM CDT Narrative EXTERNAL LAB - 05/12/2020 2:04 PM CDT Verified by Koki Burks on 05/12/2020. us Physician Non-Staff IMMUNOLOGY ORDERABLES Final Result EXTERNAL LAB * Mycophenolic Acid (05/06/2020 7:26 AM CDT) Mycophenolic Acid - External 3.0 1.0 - 3.5 ug/mL EXTERNAL LAB 05/06/2020 7:26 AM CDT Narrative EXTERNAL LAB - 05/12/2020 7:37 AM CDT Verified by Monie Siddiqui on 05/12/2020. Edwin Del Toro MD CHEMISTRY ORDERABLES Final Result Performing Organization Address [facility] de Phone Number EXTERNAL LAB * Vitamin D 25-Hydroxy (05/06/2020 7:26 AM CDT) Vitamin D, 25-Hydroxy, Total - External 26 ng/mL EXTERNAL LAB 05/06/2020 7:26 AM CDT Narrative EXTERNAL LAB - 05/07/2020 8:58 AM CDT Verified by Monie Siddiqui on 05/07/2020. Edwin Del Toro MD CHEMISTRY ORDERABLES Final Result Performing Organization Address [facility] de Phone Number EXTERNAL LAB * (ABNORMAL) Urinalysis with microscopic (05/06/2020 7:26 AM CDT) Specific [place], Urine - External 1.014 1.003 - 1.035 EXTERNAL LAB UA pH - External 6.0 5.0 - 8.0 EXTERNAL LAB UA Leukocyte Esterase - External Negative Negative EXTERNAL LAB UA Nitrate - External Negative Negative EXTERNAL LAB UA Protein - External 1+(A) Negative EXTERNAL LAB UA Glucose - External 3+(A) Negative EXTERNAL LAB UA Ketones - External Negative Negative EXTERNAL LAB UA Urobilinogen - External <2.0 <20 mg/dL EXTERNAL LAB UA Bilirubin - External Negative Negative EXTERNAL LAB UA Blood - External Negative Negative raul/ul EXTERNAL LAB UA Color - External Yellow Yellow EXTERNAL LAB UA Appearance - External Clear Clear EXTERNAL LAB UA RBC - External 0-5 EXTERNAL LAB 05/06/2020 7:26 AM CDT Narrative EXTERNAL LAB - 05/07/2020 8:58 AM CDT Verified by Monie Siddiqui on 05/07/2020. Edwin Del Toro MD URINE ORDERABLES Final Res ult Performing Organization Address [facility] de Phone Number EXTERNAL LAB * (ABNORMAL) PTH,Intact (05/06/2020 7:26 AM CDT) PTH, Intact - External 110(H) 14 - 72 pg/mL EXTERNAL LAB 05/06/2020 7:26 AM CDT Narrative EXTERNAL LAB - 05/07/2020 8:58 AM CDT Verified by Monie Siddiqui on 05/07/2020. Edwin Del Toro MD CHEMISTRY ORDERABLES Final Result Performing Organization Address [facility] de Phone Number EXTERNAL LAB * (ABNORMAL) Lipid Panel(AMA) w/LDL Calculated (05/06/2020 7:26 AM CDT) Total Cholesterol - External 207(H) 0 - 199 mg/dL EXTERNAL LAB Cholesterol LDL Direct - External 96 <130 mg/dL EXTERNAL LAB Triglycerides - External 399 EXTERNAL LAB HDL Cholesterol - External 31 EXTERNAL LAB 05/06/2020 7:26 AM CDT Narrative EXTERNAL LAB - 05/07/2020 8:58 AM CDT Verified by Monie Siddiqui on 05/07/2020. Edwin Del Toro MD CHEMISTRY ORDERABLES Final Result Performing Organization Address [facility] de Phone Number EXTERNAL LAB * (ABNORMAL) Basic Metabolic Panel (05/06/2020 7:26 AM CDT) Sodium - External 138 133 - 145 mmol/L EXTERNAL LAB Potassium - External 4.7 3.5 - 5.1 mmol/L EXTERNAL LAB Chloride - External 106 96 - 108 mmol/L EXTERNAL LAB CO2 - External 26 21 - 32 mmol/L EXTERNAL LAB Anion Gap - External 10.7 10.0 - 20.0 mmol/L EXTERNAL LAB Glucose - External 260(A) 70 - 105 mg/dL EXTERNAL LAB Urea Nitrogen - External 31(H) 6 - 19 mg/dL EXTERNAL LAB Creatinine - External 1.60(H) 0.50 - 1.30 mg/dL EXTERNAL LAB GFR(Others) - External 41 EXTERNAL LAB GFR() - External 48(L) >=60 EXTERNAL LAB Blood 05/06/2020 7:26 AM CDT Narrative EXTERNAL LAB - 05/07/2020 8:58 AM CDT Verified by Monie Siddiqui on 05/07/2020. Edwin Del Toro MD CHEMISTRY ORDERABLES Edite d Result - Final Performing Organization Address [facility] de Phone Number EXTERNAL LAB * (ABNORMAL) Hepatic function panel (05/06/2020 7:26 AM CDT) Total Protein - External 6.9 6.2 - 8.4 g/dL EXTERNAL LAB Albumin - External 3.0(L) 3.5 - 5.0 g/dL EXTERNAL LAB Total Bilirubin - External 0.2 0.0 - 1.0 mg/dL EXTERNAL LAB ALT (SGPT) - External 19 12 - 55 U/L EXTERNAL LAB Alkaline Phos - External 99 39 - 117 U/L EXTERNAL LAB AST (SGOT) - External 15 EXTERNAL LAB 05/06/2020 7:26 AM CDT Narrative EXTERNAL LAB - 05/07/2020 8:58 AM CDT Verified by Monie Siddiqui on 05/07/2020. Edwin Del Toro MD CHEMISTRY ORDERABLES Final Result Performing Organization Address [facility] de Phone Number EXTERNAL LAB * (ABNORMAL) CBC with Differential (05/06/2020 7:26 AM CDT) White Blood Cells - External 11.67(H) 10(3)/mcL EXTERNAL LAB Hemoglobin - External 15.3 12.6 - 17.4 g/dL EXTERNAL LAB Hematocrit - External 51.5 8 - 52.2 % EXTERNAL LAB MCV - External 79 0 - 100.0 fL EXTERNAL LAB MCH - External 23.5(L) 26.5 - 33.9 pg EXTERNAL LAB MCHC - External 29.7 5 - 36.0 g/dL EXTERNAL LAB Platelets - External 277 140 - 445 10(3)/mcL EXTERNAL LAB RDW - External 19.3(H) 0 - 15.0 % EXTERNAL LAB Neutrophils - External 60.3 % EXTERNAL LAB Lymphocytes - External 27 % EXTERNAL LAB Monocytes - External 10.4 % EXTERNAL LAB Eosinophils - External 1.1 % EXTERNAL LAB Basophils - External 0.9 % EXTERNAL LAB Neutrophils Abs (cells/uL) - External 7.03 cells/uL EXTERNAL LAB Lymph Absolute - External 3.15 10(3)/mcL EXTERNAL LAB [place] Absolute - External 1.21(H) 0.10 - 0.80 10(3)/mcL EXTERNAL LAB - External 0.13 0.00 - 0.30 10(3)/mcL EXTERNAL LAB Basophil Absolute - External 0.11(H) 0.00 - 0 10(3)/mcL EXTERNAL LAB Red Blood Cells - External 6.52 EXTERNAL LAB 05/06/2020 7:26 AM CDT Narrative EXTERNAL LAB - 05/07/2020 8:58 AM CDT Verified by Monie Siddiqui on 05/07/2020. 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
--- OUTSIDE RECORDS SUMMARY | 2025-08-09 09:33 | XMS_ITS | Encounter Summary ---
Author Organization [facility] Address [address] [place] [address] Care Team Providers Care Integration Project Manager Name Role Phone Juan Laguerre MD Primary Care Provider [phone] Bro AWAN MD, Aubrey Lane Unavailable [phone] Jaki Nieves PhD Unavailable [phone] Source Comments In the event that this is information that is protected by federal Confidentiality of Substance User Disorder Patient Records, 42 CFR Part 2 prohibits the unauthorized disclosure of these records.[facility] Encounter Details Date Type Department Care Team (Late Contact Info) Description 03/28/2020 Orders Only NM Transplant Surgery [address] [facility], 19th [address] [place] [address] Vivi Ponce Social History Tobacco Use Types [...] [address], [address] [place] [address] Apt confirmed-EH documented as of this encounter Procedures Procedure Name Priority Date/Time Associated Diagnosis Comments PTH, INTACT Routine 04/15/2020 5:31 AM CDT MYCOPHENOLIC ACID Routine 04/15/2020 5:3 1 AM CDT VITAMIN D 25-HYDROXY Routine 04/15/2020 5:31 AM CDT BK VIRUS DNA QUANT PCR, BLOOD Routine 04/15/2020 5:31 AM CDT BK VIRUS DNA QUANT PCR, BLOOD Routine 04/15/2020 5:31 AM CDT URINALYSIS WITH MICROSCOPIC Routine 04/15/2020 5:31 AM CDT CBC AND DIFFERENTIAL Routine 04/15/2020 5:31 AM CDT LIPID PANEL (AMA) W/LDL CALC Routine 04/15/2020 5:31 AM CDT COMPREHENSIVE METABOLIC PANEL Routine 04/15/2020 5:31 AM CDT documented in this encounter Results * BK Virus DNA Quant PCR, Blood (04/15/2020 5:31 AM CDT) BK Virus DNA, Qn PCR - External NOT DET EXTERNAL LAB 04/15/2020 5:31 AM CDT Narrative EXTERNAL LAB - 04/20/2020 7:52 AM CDT Verified by Monie Siddiqui on 04/20/2020. us Edwin Del Toro MD IMMUNOLOGY ORDERABLES Joana armenta Result EXTERNAL LAB * BK Virus DNA Quant PCR, Blood (04/15/2020 5:31 AM CDT) BK Virus DNA, Qn PCR - External NOT DET EXTERNAL LAB 04/15/2020 5:31 AM CDT Narrative EXTERNAL LAB - 04/20/2020 6:48 AM CDT Verified by Monie Siddiqui on 04/20/2020. Edwin Del Toro MD IMMUNOLOGY ORDERABLES Joana l Result Performing Organization Address [facility] de Phone Number EXTERNAL LAB * Mycophenolic Acid (04/15/2020 5:31 AM CDT) Mycophenolic Acid - External 2.6 1.0 - 3.5 ug/mL EXTERNAL LAB 04/15/2020 5:31 AM CDT Narrative EXTERNAL LAB - 04/19/2020 7:31 AM CDT Verified by Monie Siddiqui on 04/19/2020. Edwin Del Toro MD CHEMISTRY ORDERABLES Final Result Performing Organization Address [facility] de Phone Number EXTERNAL LAB * Vitamin D 25-Hydroxy (04/15/2020 5:31 AM CDT) Pathologist [facility] Vitamin D, 25-Hydroxy, Total - External 21 ng/mL EXTERNAL LAB 04/15/2020 5:31 AM CDT Narrative EXTERNAL LAB - 04/15/2020 1:11 PM CDT Verified by Monie Siddiqui on 04/15/2020. Edwin Del Toro MD CHEMISTRY ORDERABLES Final Result Performing Organization Address [facility] de Phone Number EXTERNAL LAB * (ABNORMAL) Urinalysis with microscopic (04/15/2020 5:31 AM CDT) Specific [place], Urine - External 1.017 1.003 - 1.035 EXTERNAL LAB UA pH [...] EXTERNAL LAB UA WBC - External 0-5 0-5, /hpf EXTERNAL LAB UA RBC - External 0-5 0-5, /hpf EXTERNAL LAB 04/15/2020 5:31 AM CDT Narrative EXTERNAL LAB - 04/15/2020 1:11 PM CDT Verified by Monie Siddiqui on 04/15/2020. Edwin Del Toro MD URINE ORDERABLES Final Res ult Performing Organization Address [facility] Co de Phone Number EXTERNAL LAB * (ABNORMAL) PTH,Intact (04/15/2020 5:31 AM CDT) PTH, Intact - External 114(H) 14 - 72 pg/mL EXTERNAL LAB 04/15/2020 5:31 AM CDT Narrative EXTERNAL LAB - 04/15/2020 1:11 PM CDT Verified by Monie Siddiqui on 04/15/2020. Edwin Del Toro MD CHEMISTRY ORDERABLES Final Result Performing Organization Address [facility] de Phone Number EXTERNAL LAB * (ABNORMAL) Lipid Panel(AMA) w/LDL Calculated (04/15/2020 5:31 AM CDT) Total Cholesterol - External 221(H) 0 - 199 mg/dL EXTERNAL LAB Cholesterol LDL Direct - External 60 <130 mg/dL EXTERNAL LAB Triglycerides - External 767 EXTERNAL LAB HDL Cholesterol - External 33 EXTERNAL LAB 04/15/2020 5:31 AM CDT Narrative EXTERNAL LAB - 04/15/2020 1:11 PM CDT Verified by Monie Siddiqui on 04/15/2020. Edwin Del Toro MD CHEMISTRY ORDERABLES Final Result Performing Organization Address City/[facility] Co de Phone Number EXTERNAL LAB * (ABNORMAL) Comp Metabolic Panel (04/15/2020 5:31 AM CDT) Sodium - External 138 133 - 145 mmol/L EXTERNAL LAB Potassium - External 4.8 3.5 - 5.1 mmol/L EXTERNAL LAB Chloride - External 105 96 - 108 mmol/L EXTERNAL LAB CO2 - External 27 21 - 32 mmol/L EXTERNAL LAB Anion Gap - External 0.8(L) 10.0 - 20.0 mmol/L EXTERNAL LAB Glucose - External 261(H) 70 - 105 mg/dL EXTERNAL LAB Urea Nitrogen - External 29(H) 6 - 19 mg/dL EXTERNAL LAB Creatinine - External 1.50(H) 0.50 - 1.30 mg/dL EXTERNAL LAB GFR(Others) - External 45 EXTERNAL LAB GFR() - External 53(L) >=60 EXTERNAL LAB Total Protein - External 7.1 EXTERNAL LAB Albumin - External 3.1 EXTERNAL LAB Total Bilirubin - External 0.3 EXTERNAL LAB AST (SGOT) - External 21 EXTERNAL LAB ALT (SGPT) - External 26 EXTERNAL LAB Alkaline Phos - External 109 EXTERNAL LAB Calcium - External 8.3 EXTERNAL LAB 04/15/2020 5:31 AM CDT Narrative EXTERNAL LAB - 04/15/2020 1:11 PM CDT Verified by Monie Siddiqui on 04/15/2020. Edwin Del Toro MD CHEMISTRY ORDERABLES Final Result EXTERNAL LAB * (ABNORMAL) CBC with Differential (04/15/2020 5:31 AM CDT) Pathologist [facility] White Blood Cells - External 11.72(H) 10(3)/mcL EXTERNAL LAB Hemoglobin - External 15.4 12.6 - 17.4 g/dL EXTERNAL LAB Hematocrit - External 50.3 8 - 52.2 % EXTERNAL LAB MCV - External 80.2 0 - 100.0 fL EXTERNAL LAB MCH - External 24.6(L) pg EXTERNAL LAB MCHC - External 30.6(L) g/dL EXTERNAL LAB Platelets - External 210 10(3)/mcL EXTERNAL LAB RDW - External 19.1(H) 0 - 15.0 % EXTERNAL LAB Neutrophils - External 54.7 % EXTERNAL LAB Lymphocytes - External 28 % EXTERNAL LAB Monocytes - External 13.5 % EXTERNAL LAB Eosinophils - External 2.1 % EXTERNAL LAB Basophils - External 1.1 % EXTERNAL LAB Neutrophils Abs (cells/uL) - External 6.41 cells/uL EXTERNAL LAB [place] Absolute - External 1.58(H) 0.10 - 0.80 10(3)/mcL EXTERNAL LAB - External 0.25 0.00 - 0.30 10(3)/mcL EXTERNAL LAB Basophil Absolute - External 0.13(H) 0.00 - 0 10(3)/mcL EXTERNAL LAB Red Blood Cells - External 6.27 EXTERNAL LAB Lymph Absolute - External 3.28 EXTERNAL LAB 04/15/2020 5:31 AM CDT Narrative EXTERNAL LAB - 04/15/2020 1:11 PM CDT Verified by Monie Siddiqui on 04/15/2020. 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
--- OUTSIDE RECORDS SUMMARY | 2025-08-09 09:33 | XMS_ITS | Encounter Summary ---
Author Organization [facility] Address [address] [place] [address] Care Team Providers Care Drainage Engineer Name Role Phone Juan Laguerre MD Primary Care Provider [phone] Bro AWAN MD, Aubrey Lane Unavailable [phone] Jaki Nieves PhD Unavailable [phone] Source Comments In the event that this is information that is protected by federal Confidentiality of Substance User Disorder Patient Records, 42 CFR Part 2 prohibits the unauthorized disclosure of these records.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
--- OUTSIDE RECORDS SUMMARY | 2025-08-09 09:33 | XMS_ITS | Encounter Summary ---
Author Organization [facility] Address [address] [place] [address] Care Team Providers Care Math And Science Instructor Name Role Phone Juan Laguerre MD Primary Care Provider [phone] Bro AWAN MD, Aubrey Lane Unavailable [phone] Jaki Nieves PhD Unavailable [phone] Source Comments In the event that this is information that is protected by federal Confidentiality of Substance User Disorder Patient Records, 42 CFR Part 2 prohibits the unauthorized disclosure of these records.[facility] Encounter Details Date Type Department Care Team (Late st Contact Info) Description 09/28/2018 Questionnaire Series Submission Initial Department [address] [place], [place] [id number] Provider Gabrielle Jolley DO NOT EDIT THIS RECORD!!! DO NOT CLICK THE EDIT BUTTON ABOVE!!! 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
--- OUTSIDE RECORDS SUMMARY | 2025-08-09 09:33 | XMS_ITS | Encounter Summary ---
Author Organization [facility] Address [address] [place] [address] Care Team Providers Care Computer Methods Analyst Name Role Phone Juan Laguerre MD Primary Care Provider [phone] Bro AWAN MD, Aubrey Lane Unavailable [phone] Jaki Nieves PhD Unavailable [phone] Source Comments In the event that this is information that is protected by federal Confidentiality of Substance User Disorder Patient Records, 42 CFR Part 2 prohibits the unauthorized disclosure of these records.[facility] Encounter Details Date Type Department Care Team (Late st Contact Info) Description 10/14/2018 Orders Only NM Transplant Surgery [address] [facility], [address]th [address] [place], [place] [address] Makayla Cesar, E COMMERCE MARKETING ANALYST, QUALITY INSPECTOR [address] [facility] [address] [place] [address] Social History Tobacco Use Types Packs/Day Years [...] Office Visit NM Transplant Surgery [address] [facility], [address] [place] [address] Apt confirmed-EH documented as of this encounter Visit Diagnoses Diagnosis Liver transplant recipient (CMS-HCC) documented in this encounter Additional Health Concerns Infection Onset Date Last Indicated Resolved Time COVID-19 Comment:Tested + on 09/0109/01/2020 09/05/2020 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
--- OUTSIDE RECORDS SUMMARY | 2025-08-09 09:33 | XMS_ITS | Encounter Summary ---
Author Organization [facility] Address [address] [place] [address] Care Team Providers Care Clutch Rebuilder Name Role Phone Juan Laguerre MD Primary Care Provider [phone] Bro AWAN MD, Aubrey Lane Unavailable [phone] Jaki Nieves PhD Unavailable [phone] Source Comments In the event that this is information that is protected by federal Confidentiality of Substance User Disorder Patient Records, 42 CFR Part 2 prohibits the unauthorized disclosure of these records.[facility] Encounter Details Date Type Department Care Team (Late Contact Info) Description 06/20/2020 Orders Only NM Transplant Surgery [address] [facility], [address]th [address] [place] [address] Vivi Ponce Social History Tobacco Use Types [...] St, [address] [place] [address] Apt confirmed-EH documented as of this encounter Procedures Procedure Name Priority Date/Time Associated Diagnosis Comments BK VIRUS DNA QUANT PCR, BLOOD Routine 06/22/2020 5:42 PM CDT URINALYSIS WITH MICROSCOPIC Routine 06/22/2020 5:42 PM CDT 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 ([facility]) CBC AND DIFFERENTIAL Routine 06/22/2020 5:42 PM CDT 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 ([facility]) COMPREHENSIVE METABOLIC PANEL Routine 06/22/2020 5:42 PM CDT 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 ([facility]) documented in this encounter Results * BK Virus DNA Quant PCR, Blood (06/22/2020 5:42 PM CDT) Pathologist [facility] BK Virus DNA, Qn PCR - External NOT DET EXTERNAL LAB 06/22/2020 5:42 PM CDT Narrative EXTERNAL LAB - 06/28/2020 7:12 AM CDT Verified by Monie Siddiqui on 06/28/2020. us Edwin Del Toro MD IMMUNOLOGY ORDERABLES Joana l Result EXTERNAL LAB * (ABNORMAL) Comp Metabolic Panel (06/22/2020 5:42 PM CDT) Sodium - External 140 133 - 145 mmol/L EXTERNAL LAB Potassium - External 4.6 3.5 - 5.1 mmol/L EXTERNAL LAB Chloride - External 107 96 - 108 mmol/L EXTERNAL LAB CO2 - External 27 21 - 32 mmol/L EXTERNAL LAB Anion Gap - External 10.6 10.0 - 20.0 mmol/L EXTERNAL LAB Glucose - External 125(H) 70 - 105 mg/dL EXTERNAL LAB Urea Nitrogen - External 34(H) 6 - 19 mg/dL EXTERNAL LAB Creatinine - External 1.70(H) 0.50 - 1.30 mg/dL EXTERNAL LAB Total Protein - External 7.3 g/dL EXTERNAL LAB Albumin - External 3.4(L) g/dL EXTERNAL LAB Total Bilirubin - External 0.5 0.0 - 1.0 mg/dL EXTERNAL LAB AST (SGOT) - External 12 U/L EXTERNAL LAB ALT (SGPT) - External 22 U/L EXTERNAL LAB Alkaline Phos - External 79 U/L EXTERNAL LAB GFR(Others) - External 40 EXTERNAL LAB GFR() - External 47(L) >=60 EXTERNAL LAB Blood 06/22/2020 5:42 PM CDT Narrative EXTERNAL LAB - 06/23/2020 8:33 AM CDT Verified by Monie Siddiqui on 06/23/2020. us Edwin Del Toro MD CHEMISTRY ORDERABLES Final Result EXTERNAL LAB * (ABNORMAL) Urinalysis with Microscopic (06/22/2020 5:42 PM CDT) Specific [place], Urine - External 1.020 1.003 - 1.035 EXTERNAL LAB UA pH - External 6.0(L) 50 - 80 EXTERNAL LAB UA Leukocyte Esterase - External Negative Negative EXTERNAL LAB UA Nitrate - External Negative Negative EXTERNAL LAB UA Protein - External 1+(A) Negative EXTERNAL LAB UA Glucose - External 2+(A) Negative EXTERNAL LAB UA Ketones - External [...] - External 0-5 0-5, /hpf EXTERNAL LAB Urine URINE SPECIMEN COLLECTION, CLEAN CATCH / Unknown 06/22/2020 5:42 PM CDT Narrative EXTERNAL LAB - 06/23/2020 8:33 AM CDT Verified by Monie Siddiqui on 06/23/2020. us Edwin Del Toro MD URINE ORDERABLES Final Res ult EXTERNAL LAB * (ABNORMAL) CBC with Differential (06/22/2020 5:42 PM CDT) White Blood Cells - External 8.47 10(3)/mcL EXTERNAL LAB Red Blood Cells - External 6.40(H) 10(6)/mcL EXTERNAL LAB Hemoglobin - External 15.1 g/dL EXTERNAL LAB Hematocrit - External 51.5 39.8 - 52.2 % EXTERNAL LAB MCV - External 80.5 fL EXTERNAL LAB MCH - External 23.6 5 - 33.9 pg EXTERNAL LAB MCHC - External 29.3(L) 31.5 - 36.0 g/dL EXTERNAL LAB Platelets - External 221 140 - 445 10(3)/mcL EXTERNAL LAB RDW - External 20.1(H) % EXTERNAL LAB Neutrophils - External 41.8 % EXTERNAL LAB Lymphocytes - External 42.9 % EXTERNAL LAB Monocytes - External 12 % EXTERNAL LAB Eosinophils - External 1.9 % EXTERNAL LAB Neutrophils Abs (cells/uL) - External 3.54 1.40 - 7.30 cells/uL EXTERNAL LAB Lymph Absolute - External 3.63(H) 10(3)/mcL EXTERNAL LAB Desha Absolute - External 1.02(H) 0.10 - 0.80 10(3)/mcL EXTERNAL LAB - External 0.16 0.00 - 0.30 10(3)/mcL EXTERNAL LAB Basophil Absolute - External 0.10 EXTERNAL LAB Basophils - External 1.2 EXTERNAL LAB Blood 06/22/2020 5:42 PM CDT Narrative EXTERNAL LAB - 06/23/2020 8:33 AM CDT Verified by Monie Siddiqui on 06/23/2020. us Edwin Del Toro MD HEMATOLOGY ORDERABLES Joana l Result EXTERNAL LAB documented in this encounter Visit Diagnoses Diagnosis 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 transplant documented in this encounter Additional Health Concerns Infection Onset Date Last Indicated Resolved Time COVID-19 Comment:Tested + on 09/0109/01/2020 09/05/2020 09/25/2020 12: 31 AM MAILING JOGGER documented as of this encounter Care Teams Clutch Rebuilder Relationship Specialty Start Date End Date Yocks, Juan C., MD [address] [facility] [address], [place] [id number] PCP - General Family Medicine 01/02/18 Aubrey Crabtree III, MD [address] [facility] [address] [place] [address] Hematology and Medical Oncology 10/01/18 Jaki Nieves, PhD [address] [facility] [address] [place] [address] Genetic Counseling 11/27/18 documented as of this encounter
--- OUTSIDE RECORDS SUMMARY | 2025-08-09 09:33 | XMS_ITS | Encounter Summary ---
Author Organization [facility] Address [address] [place] [address] Care Team Providers Care Assembler Musical Instruments Name Role Phone Juan Laguerre MD Primary Care Provider [phone] Bro AWAN MD, Aubrey Lane Unavailable [phone] Jaki Nieves PhD Unavailable [phone] Source Comments In the event that this is information that is protected by federal Confidentiality of Substance User Disorder Patient Records, 42 CFR Part 2 prohibits the unauthorized disclosure of these records.[facility] Encounter Details Date Type Department Care Team (Late st Contact Info) Description 10/13/2018 Orders Only NM Transplant Surgery [address] [facility], [address] [place], [place] [address] Noe Keyes MD [address] [facility] [address] [address] Social History Tobacco Use Types Packs/Day Years [...] Office Visit NM Transplant Surgery [address] [facility], [address] [place] [address] Apt confirmed-EH documented as of this encounter Visit Diagnoses Diagnosis Kidney transplanted Kidney replaced by transplant documented in this encounter Additional Health Concerns Infection Onset Date Last Indicated Resolved Time COVID-19 Comment:Tested + on 09/0109/01/2020 09/05/2020 09/25/2020 12: 31 AM TIRE TECHNICIAN documented as of this encounter Care Teams Assembler Musical Instruments Relationship Specialty Start Date End Date Juan Laguerre MD [address] [facility] [address] [place] [address] PCP - General Family Medicine 01/02/18 Aubrey Crabtree III, MD [address] [facility] [address] [place] [address] Hematology and Medical Oncology 10/01/18 Jaki Nieves, PhD [address] [facility] [address] [place] [address] Genetic Counseling 11/27/18 documented as of this encounter
--- OUTSIDE RECORDS SUMMARY | 2025-08-09 09:33 | XMS_ITS | Encounter Summary ---
Author Organization [facility] Address [address] [place] [address] Care Team Providers Care Sales Order Processor Name Role Phone Juan Laguerre MD Primary Care Provider [phone] Bro AWAN MD, Aubrey Lane Unavailable [phone] Jaki Nieves PhD Unavailable [phone] Source Comments In the event that this is information that is protected by federal Confidentiality of Substance User Disorder Patient Records, 42 CFR Part 2 prohibits the unauthorized disclosure of these records.[facility] Encounter Details Date Type Department Care Team (Late st Contact Info) Description 09/26/2018 Orders Only NM Transplant Surgery [address] [facility], [address]th [address] [place], [place] [address] Makayla Cesar, PARK AIDE, COOK COLD MEAT [address] [facility] [address] [place] [address] Social History Tobacco Use Types Packs/Day Years [...] Surgery [address] [facility], [address] [place] [address] Apt confirmed-EH documented as of this encounter Visit Diagnoses Diagnosis Liver transplant recipient (CMS-HCC) documented in this encounter Additional Health Concerns Infection Onset Date Last Indicated Resolved Time COVID-19 Comment:Tested + on 09/0109/01/2020 09/05/2020 09/25/2020 12: 31 AM AUTOMOTIVE CONSULTANT documented as of this encounter Care Teams Sales Order Processor Relationship Specialty Start Date End Date Juan Laguerre MD [address] [facility] [address] [place] [address] PCP - General Family Medicine 01/02/18 Aubrey Crabtree III, MD [address] [facility] [address] [place] [address] Hematology and Medical Oncology 10/01/18 Jaki Nieves, PhD [address] [facility] [address] [place] [address] Genetic Counseling 11/27/18 documented as of this encounter
--- OUTSIDE RECORDS SUMMARY | 2025-08-09 09:33 | XMS_ITS | Encounter Summary ---
Author Organization [facility] Address [address] [place] [address] Care Team Providers Care Manager Medical Device Name Role Phone Juan Laguerre MD Primary Care Provider [phone] Bro AWAN MD, Aubrey Lane Unavailable [phone] Jaki Nieves PhD Unavailable [phone] Source Comments In the event that this is information that is protected by federal Confidentiality of Substance User Disorder Patient Records, 42 CFR Part 2 prohibits the unauthorized disclosure of these records.[facility] Encounter Details Date Type Department Care Team (Late st Contact Info) Description 10/26/2019 Orders Only NM Transplant Surgery [address] [facility], [address]th [address] [place], [place] [address] Cathleen Gallegos MD [address] [facility] [address], [place] [address] Social History Tobacco Use Types Packs/Day Years [...] Office Visit NM Transplant Surgery [address] [facility], 19th [address] [place] [address] Apt confirmed-EH documented as of this encounter Procedures Procedure Name Priority Date/Time Associated Diagnosis Comments CARBOHYDRATE ANTIGEN 19-9 (CA19-9) Routine 10/26/2019 12:41 PM LETTER STAMPING MACHINE OPERATOR CBC AND DIFFERENTIAL Routine 10/26/2019 12:41 PM LETTER STAMPING MACHINE OPERATOR COMPREHENSIVE METABOLIC PANEL Routine 10/26/2019 12:41 PM LETTER STAMPING MACHINE OPERATOR documented in this encounter Results * Carbohydrate Antigen 19-9 (10/26/2019 12:41 PM LETTER STAMPING MACHINE OPERATOR) CA 19 9 - External 11 EXTERNAL LAB 10/26/2019 12:4 1 PM LETTER STAMPING MACHINE OPERATOR Narrative EXTERNAL LAB - 12/05/2019 10:44 AM LETTER STAMPING MACHINE OPERATOR Verified by Monie Siddiqui on 12/05/2019. us Cathleen Gallegos MD IMMUNOLOGY ORDERABLES Final Resu lt EXTERNAL LAB * (ABNORMAL) CBC with Differential (10/26/2019 12:41 PM LETTER STAMPING MACHINE OPERATOR) White Blood Cells - External 11.4(H) 4.0 - 10.0 uL EXTERNAL LAB Hemoglobin - External 15.3 13.7 - 17.5 g/dL EXTERNAL LAB Hematocrit - External 50.2 % EXTERNAL LAB Red Blood Cells - External 6.36(H) 4.53 - 5.08 EXTERNAL LAB Platelets - External 186 EXTERNAL LAB MCV - External 79 79 - 95 EXTERNAL LAB MCHC - External 30.5(L) 32.2 - 36.5 EXTERNAL LAB MCH - External 24.1 EXTERNAL LAB RDW - External 19.2(H) 11.6 - 14.4 EXTERNAL LAB Neutrophils Abs (cells/uL) - External 7,550 cells/uL EXTERNAL LAB Lymph Absolute - External 2,860 EXTERNAL LAB [place] Absolute - External 915 EXTERNAL LAB Basophil Absolute - External 114(H) 0 - 100 cells/uL EXTERNAL LAB Lymphocytes - External 25 19 - 40 % EXTERNAL LAB Monocytes - External 8 4 - 12 % EXTERNAL LAB Basophils - External 1 0 - 1 % EXTERNAL LAB 10/26/2019 12:4 1 PM LETTER STAMPING MACHINE OPERATOR Narrative EXTERNAL LAB - 10/26/2019 4:19 PM LETTER STAMPING MACHINE OPERATOR Verified by Monie Siddiqui on 10/26/2019. Physician Non-Staff HEMATOLOGY ORDERABLES Final Result EXTERNAL LAB * (ABNORMAL) Comp Metabolic Panel (10/26/2019 12:41 PM LETTER STAMPING MACHINE OPERATOR) Glucose - External 139(H) 70 - 105 mg/dL EXTERNAL LAB Urea Nitrogen - External 29(H) 7 - 25 EXTERNAL LAB Creatinine - External 1.7(H) 0.7 - 1.3 mg/dL EXTERNAL LAB Sodium - External 132 EXTERNAL LAB Potassium - External 4.2 3.5 - 5.1 EXTERNAL LAB Chloride - External 97(L) 98 - 107 mEq/L EXTERNAL LAB CO2 - External 27 EXTERNAL LAB Total Bilirubin - External 0.4 0.3 - 1.0 mg/dL EXTERNAL LAB Alkaline Phos - External 85 34 - 104 EXTERNAL LAB AST (SGOT) - External 16 13 - 39 EXTERNAL LAB ALT (SGPT) - External 17 7 - 52 U/L EXTERNAL LAB Total Protein - External 7.1 6 - 8.9 EXTERNAL LAB Albumin - External 3.8 3.5 - 5.7 EXTERNAL LAB Calcium - External 9.1 8.6 - 10.2 EXTERNAL LAB Anion Gap - External 12.2 0 - 15.0 EXTERNAL LAB GFR(Others) - External 41.5 EXTERNAL LAB GFR() - External 50(L) >60.0 EXTERNAL LAB 10/26/2019 12:4 1 PM LETTER STAMPING MACHINE OPERATOR Narrative EXTERNAL LAB - 10/26/2019 4:19 PM LETTER STAMPING MACHINE OPERATOR Verified by Monie Siddiqui on 10/26/2019. Physician Non-Staff CHEMISTRY ORDERABLES Final R esult EXTERNAL LAB documented in this encounter Visit Diagnoses Diagnosis Secondary renal hyperparathyroidism (CMS-HCC) Secondary hyperparathyroidism (of renal origin) Vitamin D deficiency Kidney transplant 01/02/2008 Type II diabetes mellitus with complication, uncontrolled Type II or unspecified type diabetes mellitus with unspecified complication, uncontrolled documented in this encounter Additional Health Concerns Infection Onset Date Last Indicated Resolved Time COVID-19 Comment:Tested + on 09/0109/01/2020 09/05/2020 09/25/2020 12: 31 AM LETTER STAMPING MACHINE OPERATOR documented as of this encounter Care Teams Manager Medical Device Relationship Specialty Start Date End Date Juan Laguerre MD [address] [facility] [address], [place] [address] PCP - General Family Medicine 01/02/18 Aubrey Crabtree III, MD [address] [facility] [address], [place] [address] Hematology and Medical Oncology 10/01/18 Jaki Nieves, PhD [address] [facility] [address] [place] [address] Genetic Counseling 11/27/18 documented as of this encounter
--- OUTSIDE RECORDS SUMMARY | 2025-08-09 09:33 | XMS_ITS | Encounter Summary ---
Author Organization [facility] Address [address] [place] [address] Care Team Providers Care White Sugar Syrup Operator Name Role Phone Juan Laguerre MD Primary Care Provider [phone] Bro AWAN MD, Aubrey Lane Unavailable [phone] Jaki Nieves PhD Unavailable [phone] Source Comments In the event that this is information that is protected by federal Confidentiality of Substance User Disorder Patient Records, 42 CFR Part 2 prohibits the unauthorized disclosure of these records.[facility] Encounter Details Date Type Department Care Team (Late st Contact Info) Description 10/10/2018 Orders Only [place] Transplant Surgery [address] [facility], [address] [place], [place] [address] Makayla Cesar, WOODEN BOX MAKER, BREAKER OILER [address] [facility] [address] [place] [address] Social History Tobacco Use Types Packs/Day Years [...] [address] , [address] [place] [address] Apt confirmed-EH documented as of this encounter Procedures Procedure Name Priority Date/Time Associated Diagnosis Comments MYCOPHENOLIC ACID Routine 10/10/2018 5:4 0 AM WATER SOFTENER INSTALLER PROTEIN/CREAT RATIO, RANDOM URINE Routine 10/10/2018 5:40 AM WATER SOFTENER INSTALLER URINALYSIS WITH MICROSCOPIC Routine 10/10/2018 5:40 AM WATER SOFTENER INSTALLER CBC AND DIFFERENTIAL Routine 10/10/2018 5:40 AM WATER SOFTENER INSTALLER PHOSPHORUS LEVEL Routine 10/10/2018 5:40 AM WATER SOFTENER INSTALLER COMPREHENSIVE METABOLIC PANEL Routine 10/10/2018 5:40 AM WATER SOFTENER INSTALLER documented in this encounter Results * (ABNORMAL) Urinalysis with Microscopic (10/10/2018 5:40 AM WATER SOFTENER INSTALLER) Specific [place], Urine - External 1.009 EXTERNAL LAB UA pH - External 7.0 EXTERNAL LAB UA Leukocyte Esterase - External Negative Negative EXTERNAL LAB UA Nitrate - External Negative Negative EXTERNAL LAB UA Protein - External Trace(A) Negative EXTERNAL LAB UA Glucose - External 3+(A) Negative EXTERNAL LAB UA Ketones - External Negative Negative EXTERNAL LAB UA Urobilinogen - External Negative <2.0 EXTERNAL LAB UA RBC - External 0-5 EXTERNAL LAB UA Color - External YELLOW EXTERNAL LAB UA Appearance - External CLEAR EXTERNAL LAB 10/10/2018 5:40 AM WATER SOFTENER INSTALLER Narrative EXTERNAL LAB - 10/15/2018 10:58 AM WATER SOFTENER INSTALLER Verified by Monie Siddiqui on 10/15/2018. us Noe Keyes MD URINE ORDERABLES Final Resul t EXTERNAL LAB * Phosphorus Level (10/10/2018 5:40 AM WATER SOFTENER INSTALLER) Phosphorous - External 3.3 EXTERNAL LAB 10/10/2018 5:40 AM WATER SOFTENER INSTALLER Narrative EXTERNAL LAB - 10/15/2018 10:58 AM WATER SOFTENER INSTALLER Verified by Monie Siddiqui on 10/15/2018. Noe Keyes MD CHEMISTRY ORDERABLES Final R esult EXTERNAL LAB * Protein /Creatinine Ratio, Urine (10/10/2018 5:40 AM WATER SOFTENER INSTALLER) Prot/Creat Ratio - External 0.59 EXTERNAL LAB Urine Creatinine, Random - External 59 EXTERNAL LAB Protein, Urine - External 34.9 EXTERNAL LAB 10/10/2018 5:40 AM WATER SOFTENER INSTALLER Narrative EXTERNAL LAB - 10/15/2018 10:58 AM WATER SOFTENER INSTALLER Verified by Monie Siddiqui on 10/15/2018. Noe Keyes MD URINE ORDERABLES Final Resul t Performing Organization Address City/[facility]/ZIP Co de Phone Number EXTERNAL LAB * Mycophenolic Acid (10/10/2018 5:40 AM WATER SOFTENER INSTALLER) Mycophenolic Acid - External 2.0 0 - 35 EXTERNAL LAB 10/10/2018 5:40 AM WATER SOFTENER INSTALLER Narrative EXTERNAL LAB - 10/13/2018 2:47 PM WATER SOFTENER INSTALLER Verified by Natali Alvarenga on 10/13/2018. Noe Keyes MD CHEMISTRY ORDERABLES Final R esult EXTERNAL LAB * (ABNORMAL) CBC with Differential (10/10/2018 5:40 AM WATER SOFTENER INSTALLER) White Blood Cells - External 11.06 EXTERNAL LAB Red Blood Cells - External 4.69 EXTERNAL LAB Hematocrit - External 36.6 EXTERNAL LAB Hemoglobin - External 11(L) EXTERNAL LAB MCV - External 78(L) EXTERNAL LAB MCH - External 23.5 EXTERNAL LAB MCHC - External 30.1 EXTERNAL LAB RDW - External 16.2 EXTERNAL LAB Platelets - External 481 EXTERNAL LAB Lymphocytes - External 40.7 % EXTERNAL LAB Monocytes - External 12.7 % EXTERNAL LAB Basophil Absolute - External 0.16 10(3)/mcL EXTERNAL LAB Lymph Absolute - External 4.50 EXTERNAL LAB Neutrophils - External 43.2 EXTERNAL LAB Neutrophils Abs (cells/uL) - External 4.78 EXTERNAL LAB [place] Absolute - External 1.40 EXTERNAL LAB Eosinophils - External 1.7 EXTERNAL LAB - External 0.19 EXTERNAL LAB Basophils - External 1.4 EXTERNAL LAB 10/10/2018 5:40 AM WATER SOFTENER INSTALLER Narrative EXTERNAL LAB - 10/11/2018 8:26 AM WATER SOFTENER INSTALLER Verified by Monie Siddiqui on 10/11/2018. us Noe Keyes MD HEMATOLOGY ORDERABLES Final Result EXTERNAL LAB * (ABNORMAL) Comp Metabolic Panel (10/10/2018 5:40 AM WATER SOFTENER INSTALLER) Sodium - External 136 133 - 145 mmol/L EXTERNAL LAB Potassium - External 4.8 3.5 - 5.1 mmol/L EXTERNAL LAB Chloride - External 102 96 - 108 mmol/L EXTERNAL LAB CO2 - External 29 21 - 32 mmol/L EXTERNAL LAB Anion Gap - External 9.8(L) 10.0 - 20.0 mmol/L EXTERNAL LAB Glucose - External 277(H) 70 - 105 mg/dL EXTERNAL LAB Urea Nitrogen - External 20(H) 6 - 19 mg/dL EXTERNAL LAB Creatinine - External 1.20 0.50 - 1.30 mg/dL EXTERNAL LAB Total Protein - External 7.2 6.2 - 8.4 g/dL EXTERNAL LAB Albumin - External 3.3(L) 3.5 - 5.0 g/dL EXTERNAL LAB Calcium - External 8.5 8.4 - 10.2 mg/dL EXTERNAL LAB Total Bilirubin - External 0.3 0.0 - 1.0 mg/dL EXTERNAL LAB AST (SGOT) - External 13 0 - 37 U/L EXTERNAL LAB ALT (SGPT) - External 21 12 - 55 U/L EXTERNAL LAB Alkaline Phos - External 104 39 - 117 U/L EXTERNAL LAB GFR(Others) - External >60 EXTERNAL LAB GFR() - External >60 >=60 EXTERNAL LAB 10/10/2018 5:40 AM WATER SOFTENER INSTALLER Narrative EXTERNAL LAB - 10/10/2018 2:50 PM WATER SOFTENER INSTALLER Verified by Monie Siddiqui on 10/10/2018. us Noe Keyes MD CHEMISTRY ORDERABLES Final R esult EXTERNAL LAB documented in this encounter Visit Diagnoses Diagnosis Liver transplant recipient (CMS-HCC) documented in this encounter Additional Health Concerns Infection Onset Date Last Indicated Resolved Time COVID-19 Comment:Tested + on 09/0109/01/2020 09/05/2020 09/25/2020 12: 31 AM WATER SOFTENER INSTALLER documented as of this encounter Care Teams White Sugar Syrup Operator Relationship Specialty Start Date End Date Juan Laguerre MD [address] [facility] [address] [place] [address] [id number] PCP - General Family Medicine 01/02/18 Aubrey Crabtree III, MD [address] [facility] [address] [place] [address] Hematology and Medical Oncology 10/01/18 Jaki Nieves, PhD [address] [facility] [address] [place] [address] Genetic Counseling 11/27/18 documented as of this encounter
--- OUTSIDE RECORDS SUMMARY | 2025-08-09 09:33 | XMS_ITS | Encounter Summary ---
Author Organization [facility] Address [address] [place] [address] Care Team Providers Care Outreach Liaison Name Role Phone Juan Laguerre MD Primary Care Provider [phone] Bro AWAN MD, Aubrey Lane Unavailable [phone] Jaki Nieves PhD Unavailable [phone] Source Comments In the event that this is information that is protected by federal Confidentiality of Substance User Disorder Patient Records, 42 CFR Part 2 prohibits the unauthorized disclosure of these records.[facility] Encounter Details Date Type Department Care Team (Late Contact Info) Description 07/29/2019 Procedure Pass [place] Radiology [address], 4th [place] [address] Social History Tobacco Use Types Packs/Day Years [...] Upcoming Encounters Date Type Department Care Team ([facility] Contact Info) Description 07/15/2026 1:00 PM CDT Office Visit [place] Transplant Surgery [address] [facility], 19th [address] [place] [address] Apt confirmed-EH documented as of this encounter Visit Diagnoses Not on filedocumented in this encounter Additional Health Concerns Infection Onset Date Last Indicated Resolved Time COVID-19 Comment:Tested + on 09/0109/01/2020 09/05/2020 09/25/2020 12: 31 AM CRABBING MACHINE OPERATOR documented as of this encounter Care Teams Outreach Liaison Relationship Specialty Start Date End Date Juan Laguerre MD [address] [phone] PCP - General Family Medicine 01/02/18 Aubrey Crabtree III, MD [address] [address] Hematology and Medical Oncology 10/01/18 Jaki Nieves, PhD [address] [facility] [address] [place] [address] Genetic Counseling 11/27/18 documented as of this encounter
--- OUTSIDE RECORDS SUMMARY | 2025-08-09 09:33 | XMS_ITS | Encounter Summary ---
Author Organization [facility] Address [address] [place] [address] Care Team Providers Care Stain Remover Name Role Phone Juan Laguerre MD Primary Care Provider [phone] Bro AWAN MD, Aubrey Lane Unavailable [phone] Jaki Nieves PhD Unavailable [phone] Source Comments In the event that this is information that is protected by federal Confidentiality of Substance User Disorder Patient Records, 42 CFR Part 2 prohibits the unauthorized disclosure of these records.[facility] Encounter Details Date Type Department Care Team (Late st Contact Info) Description 09/22/2018 Orders Only [place] Transplant Surgery [address] [facility], [address] [place], [place] [address] Noe Keyes MD [address] [facility] [address], [place] [address] Social History Tobacco Use Types Packs/Day Years [...] Visit [place] Transplant Surgery [address] [facility], [address] [place] [address] Apt confirmed-EH documented as of this encounter Visit Diagnoses Diagnosis Kidney transplanted Kidney replaced by transplant documented in this encounter Additional Health Concerns Infection Onset Date Last Indicated Resolved Time COVID-19 Comment:Tested + on 09/0109/01/2020 09/05/2020 09/25/2020 12: 31 AM VB NET DEVELOPER documented as of this encounter Care Teams Stain Remover Relationship Specialty Start Date End Date Juan Laguerre MD [address] [facility] [address] [place] [address] PCP - General Family Medicine 01/02/18 Aubrey Crabtree III, MD [address] [facility] [address] [place] [address] Hematology and Medical Oncology 10/01/18 Jaki Nieves, PhD [address] [facility] [address] [place] [address] Genetic Counseling 11/27/18 documented as of this encounter
--- OUTSIDE RECORDS SUMMARY | 2025-08-09 09:33 | XMS_ITS | Encounter Summary ---
Author Organization [facility] Address [address] [place] [address] Care Team Providers Care Mainframe Software Developer Name Role Phone Juan Laguerre MD Primary Care Provider [phone] Bro AWAN MD, Aubrey Lane Unavailable [phone] Jaki Nieves PhD Unavailable [phone] Source Comments In the event that this is information that is protected by federal Confidentiality of Substance User Disorder Patient Records, 42 CFR Part 2 prohibits the unauthorized disclosure of these records.[facility] Encounter Details Date Type Department Care Team (Late st Contact Info) Description 09/19/2018 Orders Only [place] Transplant Surgery [address] [facility], [address] [place], [place] [address] Makayla Cesar, ELECTRICAL LOGGING ENGINEER, DIVORCE LAWYER [address] [facility] [address] [place] [address] Social History Tobacco Use Types Packs/Day Years [...] [address], [address] [place] [address] Apt confirmed-EH documented as of this encounter Procedures Procedure Name Priority Date/Time Associated Diagnosis Comments TACROLIMUS Routine 09/20/2018 8:33 AM DIGITAL PRESS OPERATOR BK VIRUS QUANT VIRAL LOAD, URINE Routine 09/20/2018 8:33 AM DIGITAL PRESS OPERATOR MYCOPHENOLIC ACID Routine 09/20/2018 8:3 3 AM DIGITAL PRESS OPERATOR BK VIRUS DNA QUANT PCR, BLOOD Routine 09/20/2018 8:33 AM DIGITAL PRESS OPERATOR documented in this encounter Results * BK Virus DNA Quant PCR, Blood (09/20/2018 8:33 AM DIGITAL PRESS OPERATOR) BK Virus DNA, Qn PCR - External 601 EXTERNAL LAB 09/20/2018 8:33 AM DIGITAL PRESS OPERATOR Narrative EXTERNAL LAB - 09/30/2018 10:52 AM DIGITAL PRESS OPERATOR Verified by Monie Siddiqui on 09/30/2018. us Noe Keyes MD IMMUNOLOGY ORDERABLES Final Result EXTERNAL LAB * Tacrolimus (09/20/2018 8:33 AM DIGITAL PRESS OPERATOR) Tacrolimus ([id number]), Blood - External 2.6 EXTERNAL LAB 09/20/2018 8:33 AM DIGITAL PRESS OPERATOR Narrative EXTERNAL LAB - 09/30/2018 10:52 AM DIGITAL PRESS OPERATOR Verified by Monie Siddiqui on 09/30/2018. us Noe Keyes MD CHEMISTRY ORDERABLES Final R esult EXTERNAL LAB * Mycophenolic Acid (09/20/2018 8:33 AM DIGITAL PRESS OPERATOR) Mycophenolic Acid - External 1.1 EXTERNAL LAB 09/20/2018 8:33 AM DIGITAL PRESS OPERATOR Narrative EXTERNAL LAB - 09/30/2018 10:52 AM DIGITAL PRESS OPERATOR Verified by Monie Siddiqui on 09/30/2018. Noe Keyes MD CHEMISTRY ORDERABLES Final R esult Performing Organization Address City/[facility]/ZIP Co de Phone Number EXTERNAL LAB * BK Virus Quant Viral Load, Urine (09/20/2018 8:33 AM DIGITAL PRESS OPERATOR) BK Quantitation Urine - External 313,000 EXTERNAL LAB 09/20/2018 8:33 AM DIGITAL PRESS OPERATOR Narrative EXTERNAL LAB - 09/27/2018 7:22 AM DIGITAL PRESS OPERATOR Verified by Monie Siddiqui on 09/27/2018. Noe Keyes MD URINE ORDERABLES Final Resul t Performing Organization Address [facility] Co de Phone Number EXTERNAL LAB documented in this encounter Visit Diagnoses Diagnosis Liver transplant recipient (CMS-HCC) documented in this encounter Additional Health Concerns Infection Onset Date Last Indicated Resolved Time COVID-19 Comment:Tested + on 09/0109/01/2020 09/05/2020 09/25/2020 12: 31 AM DIGITAL PRESS OPERATOR documented as of this encounter Care Teams Mainframe Software Developer Relationship Specialty Start Date End Date Juan Laguerre MD [address] [facility] [address] [place] [phone] PCP - General Family Medicine 01/02/18 Aubrey Crabtree III, MD [address] [facility] [address] [place] [address] Hematology and Medical Oncology 10/01/18 Jaki Nieves, PhD [address] [facility] [address] [place] [address] Genetic Counseling 11/27/18 documented as of this encounter
--- OUTSIDE RECORDS SUMMARY | 2025-08-09 09:33 | XMS_ITS | Encounter Summary ---
Author Organization [facility] Address [address] [place] [address] Care Team Providers Care Maintenance Custodian Name Role Phone Juan Laguerre MD Primary Care Provider [phone] Bro AWAN MD, Aubrey Lane Unavailable [phone] Jaki Nieves PhD Unavailable [phone] Source Comments In the event that this is information that is protected by federal Confidentiality of Substance User Disorder Patient Records, 42 CFR Part 2 prohibits the unauthorized disclosure of these records.[facility] Encounter Details Date Type Department Care Team (Late st Contact Info) Description 11/16/2019 Orders Only [place] Transplant Surgery [address] [facility], [address] [place], [place] [address] Cathleen Gallegos MD [address] [facility] [address] [address] Social History Tobacco Use Types Packs/Day Years [...] Visit [place] Transplant Surgery [address] [facility], [address] [place] [address] Apt confirmed-EH documented as of this encounter Procedures Procedure Name Priority Date/Time Associated Diagnosis Comments URINALYSIS WITH MICROSCOPIC Routine 11/19/2019 9:24 AM ENROLLMENT MANAGEMENT COORDINATOR URINALYSIS WITH MICROSCOPIC Routine 11/19/2019 9:24 AM ENROLLMENT MANAGEMENT COORDINATOR CBC AND DIFFERENTIAL Routine 11/19/2019 9:24 AM ENROLLMENT MANAGEMENT COORDINATOR CBC AND DIFFERENTIAL Routine 11/19/2019 9:24 AM ENROLLMENT MANAGEMENT COORDINATOR RENAL FUNCTION PANEL Routine 11/19/2019 9:24 AM ENROLLMENT MANAGEMENT COORDINATOR documented in this encounter Results * (ABNORMAL) CBC with Differential (11/19/2019 9:24 AM ENROLLMENT MANAGEMENT COORDINATOR) White Blood Cells - External 15.9(H) 4.0 - 10.0 EXTERNAL LAB Hemoglobin - External 14.9 13.7 - 17.5 EXTERNAL LAB Hematocrit - External 48.9 40.1 - 51.0 EXTERNAL LAB Platelets - External 176 EXTERNAL LAB Red Blood Cells - External 6.22(H) 4.63 - 6.08 10*6/uL EXTERNAL LAB MCV - External 79 79 - 95 fL EXTERNAL LAB MCH - External 24(L) 25 - 32.2 pg EXTERNAL LAB MCHC - External 30.5 EXTERNAL LAB RDW - External 19.9(H) 11.6 - 14.49 % EXTERNAL LAB Neutrophils Abs (cells/uL) - External 10,036 cells/uL EXTERNAL LAB Lymph Absolute - External 3,186 cells/uL EXTERNAL LAB [place] Absolute - External 1,593 cells/uL EXTERNAL LAB - External 637(H) 0 - 300 cells/uL EXTERNAL LAB Basophil Absolute - External 478(H) 0 - 100 cells/uL EXTERNAL LAB Neutrophils - External 63 EXTERNAL LAB Lymphocytes - External 20 19 - 40 % EXTERNAL LAB Monocytes - External 10 4 - 12 % EXTERNAL LAB Eosinophils - External 4(H) 0 - 3 % EXTERNAL LAB Basophils - External 3(H) 0 - 1.94 % EXTERNAL LAB 11/19/2019 9:24 AM ENROLLMENT MANAGEMENT COORDINATOR Narrative EXTERNAL LAB - 12/05/2019 10:44 AM ENROLLMENT MANAGEMENT COORDINATOR Verified by Monie Siddiqui on 12/05/2019. us Cathleen Gallegos MD HEMATOLOGY ORDERABLES Final Resu lt EXTERNAL LAB * Urinalysis with Microscopic (11/19/2019 9:24 AM ENROLLMENT MANAGEMENT COORDINATOR) UA Color - External DARK YELLOW Yellow EXTERNAL LAB UA Appearance - External CLEAR Clear EXTERNAL LAB UA Glucose - External NEG mg/dL EXTERNAL LAB UA Bilirubin - External NEG EXTERNAL LAB UA Ketones - External NEG NEG mg/d EXTERNAL LAB Specific [place], Urine - External 1.015 EXTERNAL LAB UA pH - External 5.5 EXTERNAL LAB UA Protein - External 2+ mg/dL EXTERNAL LAB UA Urobilinogen - External 0.2 0.2 - 1 EXTERNAL LAB UA Nitrate - External NEG NEG EXTERNAL LAB UA Leukocyte Esterase - External NEG EXTERNAL LAB UA Squamous Epithelial Cells - External Rare Few EXTERNAL LAB UA Bacteria - External Rare None /HPF EXTERNAL LAB UA WBC - External 0-4 0 - 4 EXTERNAL LAB UA RBC - External 0-2 EXTERNAL LAB 11/19/2019 9:24 AM ENROLLMENT MANAGEMENT COORDINATOR Narrative EXTERNAL LAB - 12/05/2019 10:44 AM ENROLLMENT MANAGEMENT COORDINATOR Verified by Monie Siddiqui on 12/05/2019. us Cathleen Gallegos MD URINE ORDERABLES Final Result Performing Organization Address [facility]/ZIP Ar de Phone Number EXTERNAL LAB * (ABNORMAL) CBC with Differential (11/19/2019 9:24 AM ENROLLMENT MANAGEMENT COORDINATOR) Blood 11/19/2019 9:24 AM ENROLLMENT MANAGEMENT COORDINATOR Narrative EXTERNAL LAB - 11/25/2019 2:27 PM ENROLLMENT MANAGEMENT COORDINATOR Verified by Koki Burks on 11/25/2019. Corrected df Cathleen Gallegos MD HEMATOLOGY ORDERABLES Edited Res ult - Final EXTERNAL LAB * (ABNORMAL) Renal function panel (11/19/2019 9:24 AM ENROLLMENT MANAGEMENT COORDINATOR) Glucose - External 190(H) 70 - 105 EXTERNAL LAB Urea Nitrogen - External 23 7 - 25 EXTERNAL LAB Creatinine - External 1.7(H) 0.7 - 1.3 EXTERNAL LAB Sodium - External 133(L) 135 - 145 mEq/L EXTERNAL LAB Potassium - External 4.5 3.5 - 5.1 EXTERNAL LAB Chloride - External 99 98 - 107 EXTERNAL LAB Albumin - External 3.4(L) 3.5 - 5.7 EXTERNAL LAB Calcium - External 8.2 8 - 10.2 EXTERNAL LAB Phosphorous - External 2.4(L) 2.5 - 4.6 EXTERNAL LAB Anion Gap - External 13.5 7.0 - 15.0 EXTERNAL LAB GFR(Others) - External 41.5 >0.0 ml/min EXTERNAL LAB GFR() - External 50.2 ml/min EXTERNAL LAB Blood 11/19/2019 9:24 AM ENROLLMENT MANAGEMENT COORDINATOR Narrative EXTERNAL LAB - 11/25/2019 2:27 PM ENROLLMENT MANAGEMENT COORDINATOR Verified by Koki Burks on 11/25/2019. us Cathleen Gallegos MD CHEMISTRY ORDERABLES Final Resul t EXTERNAL LAB * Urinalysis with Microscopic (11/19/2019 9:24 AM ENROLLMENT MANAGEMENT COORDINATOR) Urine 11/19/2019 9:24 AM ENROLLMENT MANAGEMENT COORDINATOR Narrative EXTERNAL LAB - 11/25/2019 2:27 PM ENROLLMENT MANAGEMENT COORDINATOR Verified by Koki Burks on 11/25/2019. Corrected df sb dk yellow not yellow us Cathleen Gallegos MD URINE ORDERABLES Edited Result - Final EXTERNAL LAB documented in this encounter Visit Diagnoses Diagnosis Kidney transplant 01/02/2008 documented in this encounter Additional Health Concerns Infection Onset Date Last Indicated Resolved Time COVID-19 Comment:Tested + on 09/0109/01/2020 09/05/2020 09/25/2020 12: 31 AM ENROLLMENT MANAGEMENT COORDINATOR documented as of this encounter Care Teams Maintenance Custodian Relationship Specialty Start Date End Date Juan Laguerre MD [address] [facility] [address] [place] [address] PCP - General Family Medicine 01/02/18 Aubrey Crabtree III, MD [address] [facility] [address] [place] [address] Hematology and Medical Oncology 10/01/18 Jaki Nieves, PhD [address] [facility] [address] [place] [address] Genetic Counseling 11/27/18 documented as of this encounter
--- OUTSIDE RECORDS SUMMARY | 2025-08-09 09:33 | XMS_ITS | Encounter Summary ---
Author Organization [facility] Address [address] [place] [address] Care Team Providers Care Manager Customer Name Role Phone Juan Laguerre MD Primary Care Provider [phone] Bro AWAN MD, Aubrey Lane Unavailable [phone] Jaki Nieves PhD Unavailable [phone] Source Comments In the event that this is information that is protected by federal Confidentiality of Substance User Disorder Patient Records, 42 CFR Part 2 prohibits the unauthorized disclosure of these records.[facility] Encounter Details Date Type Department Care Team (Late st Contact Info) Description 10/03/2018 Orders Only [place] Transplant Surgery [address] [facility], 19th [address] [place], [place] [address] Makayla Cesar, ADOBE CQ DEVELOPER, ABLE BODIED TANKERMAN [address] [facility] [address] [place] [address] Social History Tobacco Use Types Packs/Day Years [...] Office Visit [place] Transplant Surgery [address] [facility], [address] [place] [address] Apt confirmed-EH documented as of this encounter Visit Diagnoses Diagnosis Liver transplant recipient (CMS-HCC) documented in this encounter Additional Health Concerns Infection Onset Date Last Indicated Resolved Time COVID-19 Comment:Tested + on 09/0109/01/2020 09/05/2020 09/25/2020 12: 31 AM TESTING CONSULTANT documented as of this encounter Care Teams Manager Customer Relationship Specialty Start Date End Date Juan Laguerre MD [address] [facility] [address] [place] [address] PCP - General Family Medicine 01/02/18 Aubrey Crabtree III, MD [address] [facility] [address] [place] [address] Hematology and Medical Oncology 10/01/18 Jaki Nieves, PhD [address] [facility] [address] [place] [address] Genetic Counseling 11/27/18 documented as of this encounter
--- OUTSIDE RECORDS SUMMARY | 2025-08-09 09:33 | XMS_ITS | Encounter Summary ---
Author Organization [facility] Address [address] [place] [address] Care Team Providers Care Bottom Crane Operator Name Role Phone Juan Laguerre MD Primary Care Provider [phone] Bro AWAN MD, Aubrey Lane Unavailable [phone] Jaki Nieves PhD Unavailable [phone] Source Comments In the event that this is information that is protected by federal Confidentiality of Substance User Disorder Patient Records, 42 CFR Part 2 prohibits the unauthorized disclosure of these records.[facility] Encounter Details Date Type Department Care Team (Late st Contact Info) Description 09/29/2018 Orders Only NM Transplant Surgery [address] [facility], [address]th [address] [place], [place] [address] Noe Keyes MD [address] [facility] [address], [place] [address] Social History Tobacco Use Types Packs/Day Years [...] [address] [facility], 19th Floor [address] [place] [address] Apt confirmed-EH documented as of this encounter Visit Diagnoses Diagnosis Kidney transplanted Kidney replaced by transplant documented in this encounter Additional Health Concerns Infection Onset Date Last Indicated Resolved Time COVID-19 Comment:Tested + on 09/0109/01/2020 09/05/2020 09/25/2020 12: 31 AM ELECTRIC BATH ATTENDANT documented as of this encounter Care Teams Bottom Crane Operator Relationship Specialty Start Date End Date Juan Laguerre MD [address] [facility] [address] [place] [id number] PCP - General Family Medicine 01/02/18 Aubrey Crabtree III, MD [address] [facility] [address] [place] [address] Hematology and Medical Oncology 10/01/18 Jaki Nieves, PhD [address] [facility] [address] [place] [address] Genetic Counseling 11/27/18 documented as of this encounter
--- OUTSIDE RECORDS SUMMARY | 2025-08-09 09:33 | XMS_ITS | Encounter Summary ---
Author Organization [facility] Address [address] [place] [address] Care Team Providers Care On Air Talent Name Role Phone Juan Laguerre MD Primary Care Provider [phone] Bro AWAN MD, Aubrey Lane Unavailable [phone] Jaki Nieves PhD Unavailable [phone] Source Comments In the event that this is information that is protected by federal Confidentiality of Substance User Disorder Patient Records, 42 CFR Part 2 prohibits the unauthorized disclosure of these records.[facility] Encounter Details Date Type Department Care Team (Late st Contact Info) Description 09/23/2018 Orders Only NM Transplant Surgery [address] [facility], [address]th [address] [place], [place] [address] Makayla Cesar, CYTOTECHNOLOGIST/CYTOLOGY SUPERVISOR, MAIL COURIER [address] [facility] [address] [place] [address] Social History Tobacco Use Types Packs/Day Years [facility], [address] [address] [place] [address] Apt confirmed-EH documented as of this encounter Visit Diagnoses Diagnosis Liver transplant recipient (CMS-HCC) documented in this encounter Additional Health Concerns Infection Onset Date Last Indicated Resolved Time COVID-19 Comment:Tested + on 09/0109/01/2020 09/05/2020 09/25/2020 12: 31 AM POULTRY FARM SUPERVISOR documented as of this encounter Care Teams On Air Talent Relationship Specialty Start Date End Date Juan Laguerre MD [address] [facility] [address] [place] [address] PCP - General Family Medicine 01/02/18 Aubrey Crabtree III, MD [address] [facility] [address] [place] [address] Hematology and Medical Oncology 10/01/18 Jaki Nieves, PhD [address] [facility] [address] [place] [address] Genetic Counseling 11/27/18 documented as of this encounter
--- OUTSIDE RECORDS SUMMARY | 2025-08-09 09:33 | XMS_ITS | Encounter Summary ---
Author Organization [facility] Address [address] [place] [address] Care Team Providers Care Financial Reporting Analyst Name Role Phone Juan Laguerre MD Primary Care Provider [phone] Bro AWAN MD, Aubrey Lane Unavailable [phone] Jaki Nieves PhD Unavailable [phone] Source Comments In the event that this is information that is protected by federal Confidentiality of Substance User Disorder Patient Records, 42 CFR Part 2 prohibits the unauthorized disclosure of these records.[facility] Encounter Details Date Type Department Care Team (Late st Contact Info) Description 07/16/2018 Prep for Procedure NM Transplant Surgery [address] [facility], 19th [address] [place], [place] [address] Rell Painting MD [address] [facility] [address], [place] [address] Social History Tobacco Use Types Packs/Day Years Used Date Smoking Tobacco: Former Cigarettes Q uit: 2012 Smokeless Tobacco: Never Alcohol Use Standard Drinks/Week [...] [facility], [address]th Floor [address] [place] [address] Apt confirmed-EH documented as of this encounter Visit Diagnoses Not on filedocumented in this encounter Additional Health Concerns Infection Onset Date Last Indicated Resolved Time COVID-19 Comment:Tested + on 09/0109/01/2020 09/05/2020 09/25/2020 12: 31 AM BUSINESS TEST ANALYST documented as of this encounter Care Teams Financial Reporting Analyst Relationship Specialty Start Date End Date Juan Laguerre MD [address] [facility] [address] [place] [address] PCP - General Family Medicine 01/02/18 Aubrey Crabtree III, MD [address] [facility] [address] [place] [address] Hematology and Medical Oncology 10/01/18 Jaki Nieves, PhD [address] [facility] [address] [place] [address] Genetic Counseling 11/27/18 documented as of this encounter
--- OUTSIDE RECORDS SUMMARY | 2025-08-09 09:33 | XMS_ITS | Encounter Summary ---
Author Organization [facility] Address [address] [place] [address] Care Team Providers Care Engine Repairer Production Name Role Phone Juan Laguerre MD Primary Care Provider [phone] Bro AWAN MD, Aubrey Lane Unavailable [phone] Jaki Nieves PhD Unavailable [phone] Source Comments In the event that this is information that is protected by federal Confidentiality of Substance User Disorder Patient Records, 42 CFR Part 2 prohibits the unauthorized disclosure of these records.[facility] Encounter Details Date Type Department Care Team (Late Contact Info) Description 01/04/2020 Orders Only NM Transplant Surgery [address] [facility], 19th Floor [address] [place] [address] Vivi Ponce Social History Tobacco Use Types [...] [address], [address] [place] [address] Apt confirmed-EH documented as of this encounter Procedures Procedure Name Priority Date/Time Associated Diagnosis Comments BK VIRUS DNA QUANT PCR, BLOOD Routine 01/09/2020 6:37 AM CAGE OPERATOR URINALYSIS WITH MICROSCOPIC Routine 01/09/2020 6:25 AM CAGE OPERATOR PTH, INTACT Routine 01/09/2020 6:22 AM CAGE OPERATOR MYCOPHENOLIC ACID Routine 01/09/2020 6:2 2 AM CAGE OPERATOR VITAMIN D 25-HYDROXY Routine 01/09/2020 6:22 AM CAGE OPERATOR CBC AND DIFFERENTIAL Routine 01/09/2020 6:22 AM CAGE OPERATOR LIPID PANEL (AMA) W/LDL CALC Routine 01/09/2020 6:22 AM CAGE OPERATOR COMPREHENSIVE METABOLIC PANEL Routine 01/09/2020 6:22 AM CAGE OPERATOR documented in this encounter Results * BK Virus DNA Quant PCR, Blood (01/09/2020 6:37 AM CAGE OPERATOR) BK Virus DNA, Qn PCR - External <390 copies/ml EXTERNAL LAB 01/09/2020 6:37 AM CAGE OPERATOR Narrative EXTERNAL LAB - 01/13/2020 12:57 PM CDT Verified by Callie Cassidy on 01/13/2020. us Physician Non-Staff IMMUNOLOGY ORDERABLES Final Result EXTERNAL LAB * (ABNORMAL) Urinalysis with microscopic (01/09/2020 6:25 AM CAGE OPERATOR) Specific [place], Urine - External 1.010 1.003 - 1.035 EXTERNAL LAB UA pH - External 6.0 0 - 8.0 EXTERNAL LAB UA Leukocyte Esterase [...] - External 0-5 0-5, /hpf EXTERNAL LAB 01/09/2020 6:25 AM CAGE OPERATOR Narrative EXTERNAL LAB - 01/09/2020 1:48 PM CAGE OPERATOR Verified by Monie Siddiqui on 01/09/2020. Edwin Del Toro MD URINE ORDERABLES Final Res ult EXTERNAL LAB * Mycophenolic Acid (01/09/2020 6:22 AM CAGE OPERATOR) Mycophenolic Acid - External 2.5 1.0 - 3.5 ug/mL EXTERNAL LAB 01/09/2020 6:22 AM CAGE OPERATOR Narrative EXTERNAL LAB - 01/15/2020 8:25 AM CDT Verified by Monie Siddiqui on 01/15/2020. Edwin Del Toro MD CHEMISTRY ORDERABLES Final Result EXTERNAL LAB * Vitamin D 25-Hydroxy (01/09/2020 6:22 AM CAGE OPERATOR) Vitamin D, 25-Hydroxy, Total - External 35 ng/mL EXTERNAL LAB 01/09/2020 6:22 AM CAGE OPERATOR Narrative EXTERNAL LAB - 01/09/2020 1:48 PM CAGE OPERATOR Verified by Monie Siddiqui on 01/09/2020. Edwin Del Toro MD CHEMISTRY ORDERABLES Final Result EXTERNAL LAB * (ABNORMAL) PTH,Intact (01/09/2020 6:22 AM CAGE OPERATOR) PTH, Intact - External 79(H) 14 - 72 pg/mL EXTERNAL LAB 01/09/2020 6:22 AM CAGE OPERATOR Narrative EXTERNAL LAB - 01/09/2020 1:48 PM CAGE OPERATOR Verified by Monie Siddiqui on 01/09/2020. Edwin Del Toro MD CHEMISTRY ORDERABLES Final Result Performing Organization Address [facility] Co de Phone Number EXTERNAL LAB * (ABNORMAL) Lipid Panel(AMA) w/LDL Calculated (01/09/2020 6:22 AM CAGE OPERATOR) Total Cholesterol - External 230(H) 0 - 199 mg/dL EXTERNAL LAB Triglycerides - External 184(H) 0 - 149 mg/dL EXTERNAL LAB HDL Cholesterol - External 39(L) 40 - 100 mg/dL EXTERNAL LAB Cholesterol LDL Direct - External 154(H) <130 mg/dL EXTERNAL LAB 01/09/2020 6:22 AM CAGE OPERATOR Narrative EXTERNAL LAB - 01/09/2020 1:48 PM CAGE OPERATOR Verified by Monie Siddiqui on 01/09/2020. Edwin Del Toro MD CHEMISTRY ORDERABLES Final Result Performing Organization Address [facility] de Phone Number EXTERNAL LAB * (ABNORMAL) Comp Metabolic Panel (01/09/2020 6:22 AM CAGE OPERATOR) Sodium - External 138 133 - 145 mmol/L EXTERNAL LAB Potassium - External 4.6 3.5 - 5.1 mmol/L EXTERNAL LAB Chloride - External 106 96 - 108 mmol/L EXTERNAL LAB CO2 - External 27 mmol/L EXTERNAL LAB Anion Gap - External 9.6(L) 10.0 - 20.0 mmol/L EXTERNAL LAB Glucose - External 135(H) 70 - 105 mg/dL EXTERNAL LAB Urea Nitrogen - External 30(H) 6 - 19 mg/dL EXTERNAL LAB Creatinine - External 1.60(H) mg/dL EXTERNAL LAB Total Protein - External 7.4 g/dL EXTERNAL LAB Albumin - External 3.5 3.5 - 5.0 g/dL EXTERNAL LAB Calcium - External 9.3 EXTERNAL LAB Total Bilirubin - External 0.5 mg/dL EXTERNAL LAB AST (SGOT) - External 30 0 - 37 U/L EXTERNAL LAB ALT (SGPT) - External 32 12 - 55 U/L EXTERNAL LAB Alkaline Phos - External 79 39 - 117 U/L EXTERNAL LAB GFR(Others) - External 43 EXTERNAL LAB GFR() - External 51(L) >=60 EXTERNAL LAB 01/09/2020 6:22 AM CAGE OPERATOR Narrative EXTERNAL LAB - 01/09/2020 1:48 PM CAGE OPERATOR Verified by Monie Siddiqui on 01/09/2020. us Edwin Del Toro MD CHEMISTRY ORDERABLES Final Result EXTERNAL LAB * (ABNORMAL) CBC with Differential (01/09/2020 6:22 AM CAGE OPERATOR) White Blood Cells - External 10.21 10(3)/mcL EXTERNAL LAB Red Blood Cells - External 6.62(H) 10(6)/mcL EXTERNAL LAB Hemoglobin - External 15.7 6 - 174 g/dL EXTERNAL LAB Hematocrit - External 52.2 % EXTERNAL LAB MCV - External 78.9(L) EXTERNAL LAB MCH - External 23.7(L) pg EXTERNAL LAB MCHC - External 30.1(L) g/dL EXTERNAL LAB Platelets - External 226 10(3)/mcL EXTERNAL LAB RDW - External 19.4(H) 12.0 - 15.0 % EXTERNAL LAB Neutrophils - External 57.3 % EXTERNAL LAB Lymphocytes - External 28.0 % EXTERNAL LAB Monocytes - External 11.9 % EXTERNAL LAB Eosinophils - External 1.2 % EXTERNAL LAB Neutrophils Abs (k/uL) - External 5.86 1.40 - 7.30 10(3)/mcL EXTERNAL LAB Lymph Absolute - External 2.86 10(3)/mcL EXTERNAL LAB [place] Absolute - External 1.21(H) 0.10 - 0.80 10(3)/mcL EXTERNAL LAB - External 0.12 0.00 - 0.30 10(3)/mcL EXTERNAL LAB Basophil Absolute - External 0.13(H) 0.00 - 0 10(3)/mcL EXTERNAL LAB Nucleated RBC - External 0.00 EXTERNAL LAB 01/09/2020 6:22 AM CAGE OPERATOR Narrative EXTERNAL LAB - 01/09/2020 1:48 PM CAGE OPERATOR Verified by Monie Siddiqui on 01/09/2020. us Edwin Del Toro MD HEMATOLOGY ORDERABLES Joana kathi Result EXTERNAL LAB documented in this encounter Visit Diagnoses Diagnosis 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 transplant documented in this encounter Additional Health Concerns Infection Onset Date Last Indicated Resolved Time COVID-19 Comment:Tested + on 09/0109/01/2020 09/05/2020 09/25/2020 12: 31 AM CAGE OPERATOR documented as of this encounter Care Teams Engine Repairer Production Relationship Specialty Start Date End Date Juan Laguerre MD [address] [address] PCP - General Family Medicine 01/02/18 Aubrey Crabtree III, MD [address] [facility] [address] [place] [address] Hematology and Medical Oncology 10/01/18 Jaki Nieves, PhD [address] [facility] [address] [place] [address] Genetic Counseling 11/27/18 documented as of this encounter
--- OUTSIDE RECORDS SUMMARY | 2025-08-09 09:33 | XMS_ITS | Clinical Summary ---
Author Organization [facility] [address] Address [address] [place] [id number] Care Team Providers Care Cage Loader Name Role Phone Anh Cool NP Primary Care Provider [phone] Katja Li MD Unavailable [phone] Rosalee Orr RN Unavailable Unavailab le Allergies Active Allergy Reactions Criticality Noted Date Comments Atorvastatin Muscle pain Medium 02/04/2025 Codeine Other (See comments),Unknown Low 020 Can't sleep Rosuvastatin Muscle pain Medium 02/04/2025 Medications FreeStyle Elizabeth 3 Sensor device USE 1 DEVICE EVERY 14 DAYS 024 Active everolimus (ZORTRESS) 0.5 mg tablet Take 3 tablets (1.5 mg total) by mouth 2 (two) times a day 022 Active empagliflozin (JARDIANCE) 25 mg tablet Take 1 tablet (25 mg total) by mouth daily 024 Active timolol (TIMOPTIC) 0.5 % ophthalmic solution INSTILL 1 DROP INTO RIGHT EYE TWICE A DAY Active mycophenolate sodium DR (MYFORTIC) 180 mg EC tablet Take 2 tablets (360 mg total) by mouth 2 (two) times a day 023 Active insulin lispro (HumaLOG) 200 unit/mL (3 mL) pen for injection Inject under the skin Sliding scale up to 12 units tid with each meal 022 Active insulin glargine (LANTUS) 100 unit/mL (3 mL) pen for injection Inject 30 Units under the skin nightly 020 Active magnesium oxide (MAG-OX) 400 mg (241.3 mg elemental magnesium) tablet Take 1 tablet (400 mg total) by mouth daily 011 Active calcium carbonate/vitamin D3 (OS-NASRIN 500 + D3 ORAL) Take 1 tablet by mouth daily Active vitamin b complex tablet Take 1 tablet by mouth daily Active artificial tears (SYSTANE) 0.3 % gel Apply to both eyes Active albuterol HFA (PROVENTIL HFA,VENTOLIN HFA,PROAIR HFA) 90 mcg/actuation inhalerIndications: Mild intermittent asthma without complication Inhale 2 puffs every 4 (four) hours as needed for wheezing 3 each 1 025 Active cyclobenzaprine (FLEXERIL) 10 mg tabletIndications:N europathy Take 1 tablet (10 mg total) by mouth 3 (three) times a day as needed for muscle spasms 30 tablet 11 Active Additional Information Patient not taking.Reported on 08/03/2025 glucagon 1 mg kitIndications:Type 2 diabetes mellitus with both eyes affected by moderate nonproliferative retinopathy without macular edema, without long-term current use of insulin (HCC) Inject 1 mL (1 mg total) under the skin daily as needed (use as needed for hypoglycemia) 3 kit 3 025 Active fenofibrate nanocrystallized (TRICOR) 145 mg tablet Take 1 tablet (145 mg total) by mouth daily 90 tablet 1 025 2025 Active Additional Information Patient not taking.Reported on 08/03/2025 ezetimibe (ZETIA) 10 mg tablet Take 1 tablet (10 mg total) by mouth daily 90 tablet 1 025 2025 Active OneTouch Ultra Test strip [address] (PROTONIX) 40 mg EC tabletIndications:G astroesophageal reflux disease without esophagitis Take 1 tablet (40 mg total) by mouth daily 90 tablet [address] (CYMBALTA) 60 mg capsuleIndications: Neuropathy Take 2 capsules (120 mg total) by mouth daily 180 capsule 1 025 Active pregabalin (LYRICA) 300 mg capsuleIndications: Neuropathy Take 1 capsule (300 mg total) by mouth 2 (two) times a day 180 capsule 1 Active amoxicillin-clavula demarco (AUGMENTIN) 875-125 mg per tablet Take 875 mg by mouth Active Eliquis 5 mg tabletIndications:a trial fibrillation Take 1 tablet (5 mg total) by mouth 2 (two) times a day 180 tablet 3 Active metoprolol XL (TOPROL-XL) 25 mg extended release tablet Take 1 tablet (25 mg total) by mouth daily Take with 50 mg of metoprolol 90 tablet 3 Active metoprolol XL (TOPROL-XL) 50 mg extended release tablet Take 1 tablet (50 mg total) by mouth daily Take with the 25 mg of metoprolol to equal 75mg 90 tablet 3 Active Eliquis 5 mg tablet Take 1 tablet (5 mg total) by mouth 2 (two) times a day 022 2024 Discontinued(R eorder) metoprolol XL (TOPROL-XL) 50 mg extended release tablet Take 1 tablet (50 mg total) by mouth daily Total 75 mg nightly 022 2024 Discontinued metoprolol XL (TOPROL-XL) 25 mg extended release tablet Take 1 tablet (25 mg total) by mouth daily 2024 Discontinued amoxicillin-clavula demarco (AUGMENTIN) 500-125 mg per tablet Take 500 mg by mouth every 12 (twelve) hours 025 2024 Discontinued(P atient Reported) amoxicillin (AMOXIL) 500 mg tablet/capsuleIndic ations:Non-recurren t acute serous otitis media of right ear Take 1 tablet/capsul e (500 mg total) by mouth 2 (two) times a day 10 tablet/cap sandee 025 2024 Discontinued(P atient Reported) Active Problems Problem Noted Date Diagnosed Date Personal history of pancreatic cancer 07/30/2025 Overview (07/30/2025): Tail of pancreas History of vitreous hemorrhage 07/30/2025 Overview (07/30/2025): Right eye Wound of right ankle 07/30/2025 Overview (07/30/2025): Patient had surgery performed by Dr. Herrera on 04/15/2025, including irrigation and excisional debridement of subcutaneous fat, skin, subcutaneous fibrous tissue, peroneal tendon sheath all with a 15 blade knife and rongeur, mechanical debridement of ankle with scrub brush and application of Prevena wound VAC. Assessment & Plan (07/30/2025 10:15 AM CDT): Currently following with Dr. Herrera at [facility]. He is s/p surgery performed by Dr. Herrera on 04/15/2025, including irrigation and excisional debridement of subcutaneous fat, skin, subcutaneous fibrous tissue, peroneal tendon sheath all with a 15 blade knife and rongeur, mechanical debridement of ankle with scrub brush and application of Prevena wound VAC. Currently following with them for wound management. Nonhealing wound on the right lateral ankle: Currently utilizing a Wound VAC with Kerecis. Application. Per patient wound is healing well. Syncope 05/11/2025 Thrombocytopenia 05/11/2025 Erectile dysfunction 02/04/2025 CKD stage G3a/A2, GFR 45-59 and albumin creatinine ratio 30-299 mg/g 02/04/2025 Overview (02/04/2025): S/p kidney transpant. Assessment & Plan (02/04/2025 1:03 PM CDT): Current GFR 51 with creatinine of 1.52. Referral to Nephrology. On Jardiance 25 mg daily. Statin myopathy 02/04/2025 Assessment & Plan (07/30/2025 9:46 AM CDT): History of statin induced myopathy. Assessment & Plan (02/04/2025 1:03 PM CDT): History of statin induced myopathy. We will consider alternative method pending lab results. Orders: Creatine kinase (CK), total; Future History of amputation of lesser toe, left 2024 Overview (02/04/2025): 2/2 diabetic infection. Retinopathy 02/04/2025 Assessment & Plan (07/30/2025 10:15 AM CDT): Follows with [facility]. We will follow their recommendations. Advised he should have at minimum yearly eye exam. Will request eye exam records. Assessment & Plan (02/04/2025 1:03 PM CDT): Follows with [facility]. We will follow their recommendations. Advised he should have at minimum yearly eye exams. Mixed hyperlipidemia 04/22/2020 Assessment & Plan (02/04/2025 1:03 PM CDT): We will check lipid panels before we restart atorvastatin. Patient did have myalgias from atorvastatin and Crestor use. We will likely consider a non statin product. 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 Continue aspirin. Recommended to discuss with Medical Oncologist re any w/up and/or treatment. Paroxysmal atrial fibrillation 11/07/2018 Overview (02/04/2025): Last Assessment & Plan: Cardiology management. Rate control may not be effective in the setting of hypotension. On systemic anticoagulation. Assessment & Plan (02/04/2025 1:03 PM CDT): Rate controlled in sinus rhythm today. 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 Hypertension, essential 01/27/2018 Assessment & Plan (02/04/2025 1:03 PM CDT): Patient's blood pressure and heart rate are controlled on metoprolol 75 mg extended release daily. He takes a 25 mg and 50mg daily. Patient will reach out if he needs refills. 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 Patient had acute kidney failure. Maintained on mycophenolate and everolimus for immunosuppression. Assessment & Plan (07/30/2025 10:15 AM CDT): Patient with a history of liver transplant. Follows with transplant surgery [facility] in [place]. He is advised to stay up-to-date on all vaccinations including COVID-19 secondary to immunosuppression. Assessment & Plan (02/04/2025 1:03 PM CDT): Referral to hepatobiliary surgery. 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 Orders: albuterol HFA (PROVENTIL HFA,VENTOLIN HFA,PROAIR HFA) 90 mcg/actuation inhaler; Inhale 2 puffs every 4 (four) hours as needed for wheezing GERD (gastroesophageal reflux disease) Assessment & Plan (02/04/2025 1:03 PM CDT): GERD symptoms have been controlled on Protonix 40 mg daily. We will continue Protonix 40 mg daily. Orders: pantoprazole DR (PROTONIX) 40 mg EC tablet; Take 1 tablet (40 mg total) by mouth early childhood aide classroom before breakfast History of transcatheter aortic valve replacemen t (TAVR) Overview (02/04/2025): Secondary to non rheumatic aortic valve stenosis. Artificial valve. Maintained on Eliquis 5 mg b.i.d.. Assessment & Plan (02/04/2025 1:03 PM CDT): Secondary to non rheumatic aortic valve stenosis. Artificial valve. Maintained on Eliquis 5 mg b.i.d.. Orders: Vitamin D 25 hydroxy; Future Vitamin D deficiency Assessment & Plan (07/30/2025 10:15 AM CDT): Recommend patient to restart vitamin-D supplement of 2000 international units daily. Assessment & Plan (02/04/2025 1:03 PM CDT): Recommend patient to restart vitamin-D supplement of 2000 international units daily. Resolved Problems Problem Noted Date Diagnosed Date Resolved Date Malignant neoplasm of tail of pancreas 07/30/2025 07/30/2025 Nonspecific elevation of lev els of transaminase or lactic acid dehydrogenase (LDH) 02/04/2025 02/04/2025 Heart murmur 02/04/2025 02/04/2025 Myopathy 02/04/2025 02/04/2025 Nonrheumatic aortic valve stenosis 12/05/2018 02/04/2025 Sepsis 11/02/2018 07/30/2025 Stomatitis and mucositis 10/31/201806/2025 Vitreous hemorrhage of right eye 01/27/2018 07/30/2025 Diabetes mellitus 07/30/2025 Assessment & Plan (02/04/2025 1:03 PM CDT): Orders: Comprehensive metabolic panel; Future Hemoglobin A1c; Future glucagon 1 mg kit; Inject 1 mL (1 mg total) under the skin daily as needed (use as needed for hypoglycemia) Encounters Date Type Department Care Team Description 08/03/2025 1:00 PM CDT Office Visit [facility] Cardiology at [address] [place] [address] Usman Nova MD History of transcatheter aortic valve replacement (TAVR) (Primary Dx); Paroxysmal atrial fibrillation (HCC) 08/03/2025 Telephone [facility] Primary Care at [address] [address] Anh Cool NP 07/30/2025 9:00 AM CDT Office Visit [facility] Primary Care at [address] [phone] Anh Cool NP BMI 29.0-29.9,adult (Primary Dx); History of liver transplant (HCC); Non-recurrent acute serous otitis media of right ear; Wound of right ankle, sequela; Vitamin D deficiency; Retinopathy 05/20/2025 Telephone [facility] Primary Care at [address] [address] Anh Cool NP Medical Records Request 05/11/2025 8:18 AM CDT - 05/11/2025 11:59 PM CDT Hospital Encounter [address] [address] Mixed hyperlipidemia; Type 2 diabetes mellitus with stage 3b chronic kidney disease, with long-term current use of insulin (HCC) Discharge Disposition: Discharge to home or self care 05/11/2025 8:15 AM CDT Lab [facility] Outpatient Lab at [address] [phone] 05/11/2025 7:30 AM CDT Office Visit [facility] Primary Care at [address] [address] Anh Cool NP Hypertension, essential (Primary Dx); Paroxysmal atrial fibrillation (HCC); History of transcatheter aortic valve replacement (TAVR); Statin myopathy; Mixed hyperlipidemia; Type 2 diabetes mellitus with stage 3b chronic kidney disease, with long-term current use of insulin (HCC); Need for vaccination 05/11/2025 Results Follow-Up [facility] Primary Care at [address] [phone] Anh Cool NP Lipid panel, Hemoglobin A1c from Last 3 Months Immunizations Immunization Administration Dates Next Due Hib (PRP-T) 07/21/2018 Influenza LAIV (Nasal) 08/21/2024,08/07/2017,11/2007 Influenza, Live, Trivalent, Intranasal 7,08/04/2008 Influenza, Quadrivalent, Rec ombinant, Egg Free, Preservative Free, Intramuscular 08/04/2020 Influenza, Quadrivalent, Spl it, Preservative Free, Intramuscular 07/23/2023,08/23/2022,08/29/2021,08/20,09/15/2018,08/02/2015 Influenza, Trivalent, IM (MDV) 09/03/2014,2012,09/07/2012 Influenza, Trivalent, Preser vative Free, Intramuscular 09/07/2024,07/25/2016 Influenza, Unspecified 09/15/2018,2016,08/07/2017,07/25,07/25/2016,08/02/2015,08/02/2015 ,09/03/2014,09/10/2013,09/07/2012,11/2007,08/04/2008 Meningococcal B, OMV (Bexsero) 8,09/15/2018,07/21/2018,07/21 Meningococcal MCV4P (Menactra) 09/15/2018,2017 Pneumococcal Conjugate PCV 13 07/21/2018, 008 Pneumococcal Conjugate Pcv20 05/11/2025 Pneumococcal Polysaccharide PPV23 10/03/2018,02/2017,08/04/2008 RSV Vaccine, Pref, Recombina nt, Subunit, Adjuvanted, PF, IM (Arexvy) 07/23/2023 RSV, Bivalent, Protein Subun it Rsvpref, Diluent (Abrysvo) 07/23/2023 Tdap 05/11/2025 ZOSTER Recombinant 03/19/2022,12/09/2021 Surgical History Surgery Date Site/Laterality Comments KIDNEY SURGERY 01/02/2008 they didn't remove any because neither kidney was working has 3 kidneys with only 1 working LIVER TRANSPLANT 11/04/2007 - 11/03/2008 CARDIAC VALVE SURGERY 11/04/2017 - 11/03/2018 TAVR - [facility]. APPENDECTOMY PANCREAS SURGERY 11/04/2017 - 11/03/2018 3/4 removed due to cancer CHOLECYSTECTOMY EYE SURGERY Bilateral cataracts TOE AMPUTATION Right Medical History Medical History Date Comments Diabetes mellitus Hypertension Hyperlipidemia Vitamin D deficiency History of artificial heart valve GERD (gastroesophageal reflux disease) Asthma Nonspecific elevation of lev els of transaminase or lactic acid dehydrogenase (LDH) 02/04/2025 Stomatitis and mucositis 10/31/2018 Atrial fibrillation (HCC) Family History Medical History Relation Name Comments Cancer Father Diabetes Father Hypertension Father Breast cancer Mother Relation Name Status Comments Father Mother Social History Tobacco Use Types Packs/Day Years Used Date Smoking Tobacco: Former Cigarettes 1 32 S tarted: 1979 Passive Smoke Exposure: Past Smokeless Tobacco: Never Tobacco Cessation:Counseling Given: Not Answered AUDIT-C Answer Date Recorded Q1: How often do you have a drink containing alcohol? Never 02/04/2025 Q2: How many drinks containi ng alcohol do you have on a typical day when you are drinking? Patient does not drink Q3: How often do you have si x or more drinks on one occasion? Never 02/04/2025 PHQ-2 Answer Date Recorded PHQ-2 Total Score (If total score is 3 or more points, staff should administer the PHQ-9) 0 05/11/2025 Sex and Gender Information Value Date Recorded Sex Assigned at Not on file Legal Sex Male 11:00 AM [facility] Gender Identity Not on file Sexual Orientation Not on file Obstetrics History Last Filed Vital Signs Vital Sign Reading Time Taken Comments Blood Pressure 118/76 08/03/2025 12:56 PM CDT Pulse 69 08/03/2025 12:56 PM CDT Temperature 36.1 C (97 F) 07/30/2025 8:47 AM CDT Respiratory Rate 16 07/30/2025 8:47 AM CDT Oxygen Saturation 95% 08/03/2025 12:56 PM CDT Inhaled Oxygen Concentration - - Weight 95.8 kg (211 lb 3.2 oz) 08/03/2025 12:56 PM CDT Height 182.9 cm (6') 08/03/2025 12:56 PM CDT Body Mass Index 28.64 08/03/2025 12:56 PM CDT Plan of Treatment Health Maintenance Due Date Last Done Comments Dilated Eye Exam 1960 Foot Exam 1960 Regular Well Visit/Exam 18-64 1978 Hemoglobin A1C 11/11/2025 05/11/2025, 02/24/2025 Albumin Creatinine Ratio, Urine 02/24/2026 02/24/2025 eGFR 02/24/2026 02/24/2025 Influenza Vaccine (#1) 2026 , 08/21/2024, 07/23/2023, Additional history exists Postponed from 07/05/2025 (Patient declined, but will receive in the future) Depression Screening 05/11/2026 05/11/2025, 02/05/20 25 Lipid Panel 07/13/2026 07/13/2025, 07/0 06/2025, 04/01/2025, Additional history exists Covid-19 Vaccine (7 - Moderna risk 2023- season) 2026 09/07/2024, 07/23/2023, 08/23/2022, Additional history exists Postponed from 07/05/2025 (Patient declined, but will receive in the future) Prostate Cancer Screening-PSA 02/24/2027 02/24/2025 Colon Cancer Screening-Colonoscopy 12/21/2031 12/21/2021, 12/21/2021 DTaP/Tdap/Td Vaccine (2 - Td or Tdap) 05/11/2035 05/11/2025 Zoster Vaccine Completed 03/19/2022, 12/09/2021 Pneumococcal vaccine <65 Completed 025, 10/03/2018, 07/21/2018, Additional history exists Hepatitis B Screening Discontinued Hepatitis C Screening Discontinued Procedures Procedure Name Priority Date/Time Associated Diagnosis Comments HEMOGLOBIN A1C Routine 05/11/2025 8:18 AM CDT Type 2 diabetes mellitus with stage 3b chronic kidney disease, with long-term current use of insulin (HCC) LIPID PANEL Routine 05/11/2025 8:18 AM CDT Mixed hyperlipidemia Type 2 diabetes mellitus with stage 3b chronic kidney disease, with long-term current use of insulin (HCC) COMPREHENSIVE METABOLIC PANEL Routine 02/24/2025 7:36 AM CDT Type 2 diabetes mellitus with both eyes affected by moderate nonproliferative retinopathy without macular edema, without long-term current use of insulin (HCC) ALBUMIN CREATININE RATIO, URINE Routine 02/24/2025 7:36 AM CDT History of kidney transplant PSA SCREEN Routine 02/24/2025 7:34 AM CDT Screening PSA (prostate specific antigen) HM COLONOSCOPY Routine 12/21/2021 from Last 3 Months or Most Recently Relevant to Health Maintenance Results * (ABNORMAL) Hemoglobin A1c (05/11/2025 8:18 AM CDT) Hgb A1C 8.7(H) 4.0 - 5.6 % Estimated Average Glucose 203 mg/dL [facility]IE JONES Comment: The ADA recommends reporting an estimated Average Glucose (eAG) with all Hemoglobin A1c results using the equation derived from a study of 507 normal and diabetic adults. Minority populations were underrepresented and children were not included. (Diabetes Care 31:1698-4385, 2008). The eAG is not equivalent to a fasting glucose. Blood 05/11/2025 8:18 AM CDT 05/11/2025 2:48 PM CDT Anh Cool NP LAB BLOOD ORDERABLES Final Re sult BERNIE [id number] Department [place] [address] * (ABNORMAL) Lipid panel (05/11/2025 8:18 AM CDT) Cholesterol 164 30 - 199 mg/dL Comment: Interpretive Data Ages < or = 19 years Acceptable: <170 mg/dL Borderline high: 170-199 mg/dL High: >or= 200 mg/dL Ages > or = 20 years Desirable: <200 mg/dL Borderline high: 200-239 mg/dL High: >or= 240 mg/dL Literature References: 1. Expert Panel on Integrated Guidelines for Cardiovascular Health and Risk Reduction in Children and Adolescents. Pediatrics 2011;128:S213 2. NCEP Expert Panel. Circulation 2004;110:227 Current Interpretive Data was last revised on 2018. Triglycerides 177(H) <=149 mg/dL BERNIE Comment: Interpretive Data Ages < or = 9 years Acceptable: <75 mg/dL Borderline high: 75-99 mg/dL High: >or= 100 mg/dL Ages 10 to 20 years Acceptable: <90 mg/dL Borderline high: 90-129 mg/dL High: >or= 130 mg/dL Ages > or = 20 years Desirable: <150 mg/dL Borderline high: 150-199 mg/dL High: 200-499 mg/dL Very high: >or= 499 mg/dL Literature References: 1. Expert Panel on Integrated Guidelines for Cardiovascular Health and Risk Reduction in Children and Adolescents. Pediatrics 2011;128:S213 2. NCEP Expert Panel. Circulation 2004;110:227 Current Interpretive Data was last revised on 2018. HDL 33(L) >=40 mg/dL BERNIE Comment: Interpretive Data Ages < or = 19 years Acceptable: >45 mg/dL Borderline low: 40-45 mg/dL Low: <40 mg/dL Ages > or = 20 years Desirable: >or= 60 mg/dL Low: <40 mg/dL Literature References: 1. Expert Panel on Integrated Guidelines for Cardiovascular Health and Risk Reduction in Children and Adolescents. Pediatrics 2011;128:S213 2. NCEP Expert Panel. Circulation 2004;110:227 Current Interpretive Data was last revised on 2018. LDL, calculated 100 <=129 mg/dL BERNIE Comment: Interpretive Data Ages < or = 19 years Acceptable: <110 mg/dL Borderline high: 110-129 mg/dL High: >or= 130 mg/dL Ages > or = 20 years Optimal: <100 mg/dL Near optimal: 100-129 mg/dL Borderline high: 130-159 mg/dL High: >160 mg/dL Calculated using the Ang LDL-C estimating equation. This equation was implemented on 2024. Prior to this date LDL-C was estimated using the Friedewald equation. Literature References: 1. Expert Panel on Integrated Guidelines for Cardiovascular Health and Risk Reduction in Children and Adolescents. Pediatrics 2011;128:S213 2. NCEP Expert Panel. Circulation 2004;110:227 3. Ang Grace et al. ELEANOR Cardiol. 2020 March 04;5(5):540-548. doi: 10.1001/[email or web address] Current Interpretive Data was last revised on 2024. Non-HDL Cholesterol 131 mg/dL BERNIE JONES Comment: Interpretive Data Ages < or = 19 years Acceptable: <120 mg/dL Borderline high: 120-144 mg/dL High: >145 mg/dL Ages > or = 20 years When triglycerides are >200 mg/dL, Non-HDL cholesterol is a secondary target of therapy with treatment goals that are 30 mg/dL greater than the LDL cholesterol target. Literature References: 1. Expert Panel on Integrated Guidelines for Cardiovascular Health and Risk Reduction in Children and Adolescents. Pediatrics 2011;128:S213 2. NCEP Expert Panel. Circulation 2004;110:227 Current Interpretive Data was last revised on 2018. Chol/HDL ratio 5 BERNIE JONES Blood 05/11/2025 8:18 AM CDT 05/11/2025 2:48 PM CDT Anh Cool [employer] LAB BLOOD ORDERABLES Final Re sult [facility]ERN[facility] [id number] Department [place] [address] * (ABNORMAL) Albumin Creatinine Ratio, Urine (02/24/2025 7:36 AM CDT) Creatinine, ur 42 20 - 320 mg/dL [facility] Microalbumin, ur 2.3 See Note: mg/dL [facility] Comment: Reference Range: Reference Range Not established Microalbumin/creat ratio 55(H) <30 mg/g creat [facility] Comment: The ADA defines abnormalities in albumin excretion as follows: Albuminuria Category Result (mg/g creatinine) Normal to Mildly increased <30 Moderately increased 30-299 Severely increased > OR = 300 The ADA recommends that at least two of three specimens collected within a 3-6 month period be abnormal before considering a patient to be within a diagnostic category. Urine 02/24/2025 7:36 AM CDT 02/24/2025 7:37 AM CDT Narrative [facility] - 02/25/2025 2:21 AM CDT FASTING:YES FASTING: YES us Anh Cool NP LAB URINE ORDERABLES Final Re sult [facility] [id number] [id number] * (ABNORMAL) Comprehensive metabolic panel (02/24/2025 7:36 AM CDT) Glucose 111(H) 65 - 99 mg/dL [facility] Comment: Fasting reference interval For someone without known diabetes, a glucose value between 100 and 125 mg/dL is consistent with prediabetes and should be confirmed with a follow-up test. BUN 26(H) 7 - 25 mg/dL [facility] Creatinine 1.56(H) 0.70 - 1.35 mg/dL [facility] eGFR 49(L) > OR = 60 mL/min/1.7 3m2 [facility] BUN/creat ratio 17 6 - 22 (calc) [facility] Sodium 135 135 - 146 mmol/L [facility] Potassium, pl 4.8 3.5 - 5.3 mmol/L [facility] Chloride 100 98 - 110 mmol/L [facility] CO2 27 20 - 32 mmol/L [facility] Calcium 9.0 8.6 - 10.3 mg/dL [facility] Protein, sr 6.7 6.1 - 8.1 g/dL [facility] Albumin 3.7 3.6 - 5.1 g/dL [facility] GLOBULIN 3.0 1.9 - 3.7 g/dL (calc) [facility] Alb/glob ratio 1.2 1.0 - 2.5 (calc) [facility] Bilirubin, total 0.4 0.2 - 1.2 mg/dL [facility] Alk phos 81 35 - 144 U/L [facility] AST 20 10 - 35 U/L [facility] ALT (SGPT) 17 9 - 46 U/L [facility] Blood 02/24/2025 7:36 AM CDT 02/24/2025 7:37 AM CDT Narrative [facility] - 02/25/2025 2:21 AM CDT FASTING:YES FASTING: YES Anh Cool CELLULOID TRIMMER LAB BLOOD ORDERABLES Final Re sult Performing Organization Address [facility] de Phone Number [email or web address] [address] [place] [address] * PSA screen (02/24/2025 7:34 AM CDT) PSA 0.33 < OR = 4.00 ng/mL [facility] Comment: The total PSA value from this assay system is standardized against the WHO standard. The test result will be approximately 20% lower when compared to the equimolar-standardized total PSA ([place]). Comparison of serial PSA results should be interpreted with this fact in mind. This test was performed using the Siemens chemiluminescent method. Values obtained from different assay methods cannot be used interchangeably. PSA levels, regardless of value, should not be interpreted as absolute evidence of the presence or absence of disease. Blood 02/24/2025 7:34 AM CDT 02/24/2025 7:35 AM CDT Narrative [facility] - 02/25/2025 2:31 AM CDT FASTING:YES FASTING: YES Anh Cool NP LAB BLOOD ORDERABLES Final Re sult Performing Organization Address [facility] de Phone Number [email or web address] [address] [facility] [place] [address] * HM COLONOSCOPY (12/21/2021) Scribed Colonoscopy Normal Impressions Jennifer Callejas MA - 12/21/2021 Repeat 10 years Historical Provider MD HEALTH MAINTENANCE Final Result from Last 3 Months or Most Recently Relevant to Health Maintenance Insurance [place] Care Teams Cage Loader Relationship Specialty Start Date End Date Anh Cool NP [address] [id number] PCP - General Internal Medicine 02/04/25 Katja Li MD [address] [phone] Endocrinology Diabetes & Metabolism 02/04/25 Rosalee Orr, miter saw operatorAdvertising Statistical Clerk 02/05/25
--- OUTSIDE RECORDS SUMMARY | 2025-08-09 09:33 | XMS_ITS | Encounter Summary ---
Author Organization [facility] Address [address] [place] [address] Care Team Providers Care Gravel Truck Driver Name Role Phone Juan Laguerre MD Primary Care Provider [phone] Bro AWAN MD, Aubrey Lane Unavailable [phone] Jaki Nieves PhD Unavailable [phone] Source Comments In the event that this is information that is protected by federal Confidentiality of Substance User Disorder Patient Records, 42 CFR Part 2 prohibits the unauthorized disclosure of these records.[facility] Encounter Details Date Type Department Care Team (Late Contact Info) Description 11/23/2019 Orders Only [place] Transplant Surgery [address] [facility], 19th Floor [address] [place] [address] Renetta Henao Social History Tobacco Use Types [...] [facility] [address] [place] [address] Apt confirmed-EH documented as of this encounter [...] on 09/0109/01/2020 09/05/2020 09/25/2020 12: 31 AM HOME HEALTH AIDE documented as of this encounter Care Teams Gravel Truck Driver Relationship Specialty Start Date End Date Juan Laguerre MD [address] [id number] PCP - General Family Medicine 01/02/18 Aubrey Crabtree III, MD [address] [address] Hematology and Medical Oncology 10/01/18 Jaki Nieves, PhD [address] [facility] [address] [place] [address] Genetic Counseling 11/27/18 documented as of this encounter
--- OUTSIDE RECORDS SUMMARY | 2025-08-09 09:33 | XMS_ITS | Encounter Summary ---
Author Organization [facility] Address [address] [place] [address] Care Team Providers Care Base Draw Operator Name Role Phone Juan Laguerre MD Primary Care Provider [phone] Bro AWAN MD, Aubrey Lane Unavailable [phone] Jaki Nieves PhD Unavailable [phone] Source Comments In the event that this is information that is protected by federal Confidentiality of Substance User Disorder Patient Records, 42 CFR Part 2 prohibits the unauthorized disclosure of these records.[facility] Encounter Details Date Type Department Care Team (Late st Contact Info) Description 11/30/2019 Orders Only NM Transplant Surgery [address] [facility], [address]th [address] [place], [place] [address] Cathleen Gallegos MD [address] [facility] [address] [address] Social History Tobacco Use Types Packs/Day Years [...] Office Visit NM Transplant Surgery [address] [facility], [address]th [address] [place] [address] Apt confirmed-EH documented as of this encounter Procedures Procedure Name Priority Date/Time Associated Diagnosis Comments BK VIRUS DNA QUANT PCR, BLOOD Routine 12/11/2019 6:48 AM MANAGER ROOFING BK VIRUS QUANT VIRAL LOAD, URINE Routine 12/11/2019 5:49 AM MANAGER ROOFING EVEROLIMUS LEVEL Routine 12/11/2019 5:49 AM MANAGER ROOFING PTH, INTACT Routine 12/11/2019 5:49 AM MANAGER ROOFING MYCOPHENOLIC ACID Routine 12/11/2019 5:4 9 AM MANAGER ROOFING VITAMIN D 25-HYDROXY Routine 12/11/2019 5:49 AM MANAGER ROOFING PROTEIN/CREAT RATIO, RANDOM URINE Routine 12/11/2019 5:49 AM MANAGER ROOFING CBC AND DIFFERENTIAL Routine 12/11/2019 5:49 AM MANAGER ROOFING PHOSPHORUS LEVEL Routine 12/11/2019 5:49 AM MANAGER ROOFING LIPID PANEL (AMA) W/LDL CALC Routine 12/11/2019 5:49 AM MANAGER ROOFING COMPREHENSIVE METABOLIC PANEL Routine 12/11/2019 5:49 AM MANAGER ROOFING documented in this encounter Results * BK Virus DNA Quant PCR, Blood (12/11/2019 6:48 AM MANAGER ROOFING) BK Virus DNA, Qn PCR - External DET EXTERNAL LAB 12/11/2019 6:48 AM MANAGER ROOFING Narrative EXTERNAL LAB - 12/18/2019 7:40 AM MANAGER ROOFING Verified by Monie Siddiqui on 12/18/2019. Cathleen Gallegos MD IMMUNOLOGY ORDERABLES Final Resu lt Performing Organization Address City/[facility]/ZIP Co de Phone Number EXTERNAL LAB * Everolimus Level (12/11/2019 5:49 AM MANAGER ROOFING) Everolimus Level - External 4.7 3-8ng/mL ng/mL EXTERNAL LAB 12/11/2019 5:49 AM MANAGER ROOFING Narrative EXTERNAL LAB - 12/15/2019 11:28 AM MANAGER ROOFING Verified by Monie Siddiqui on 12/15/2019. Cathleen Gallegos MD CHEMISTRY ORDERABLES Final Resul t Performing Organization Address [facility] Co de Phone Number EXTERNAL LAB * BK Virus Quant Viral Load, Urine (12/11/2019 5:49 AM MANAGER ROOFING) BK Quantitation Urine - External 13,100 cpy/mL EXTERNAL LAB 12/11/2019 5:49 AM MANAGER ROOFING Narrative EXTERNAL LAB - 12/15/2019 11:26 AM MANAGER ROOFING Verified by Monie Siddiqui on 12/15/2019. Cathleen Gallegos MD URINE ORDERABLES Final Result Performing Organization Address [facility] de Phone Number EXTERNAL LAB * Mycophenolic Acid (12/11/2019 5:49 AM MANAGER ROOFING) Mycophenolic Acid - External 2.8 1.0 - 3.5 ug/mL EXTERNAL LAB 12/11/2019 5:49 AM MANAGER ROOFING Narrative EXTERNAL LAB - 12/14/2019 12:20 PM MANAGER ROOFING Verified by Koki Burks on 12/14/2019. Physician Non-Staff CHEMISTRY ORDERABLES Final R esult Performing Organization Address City/[facility] Co de Phone Number EXTERNAL LAB * Vitamin D 25-Hydroxy (12/11/2019 5:49 AM MANAGER ROOFING) Vitamin D, 25-Hydroxy, Total - External 13 ng/mL EXTERNAL LAB 12/11/2019 5:49 AM MANAGER ROOFING Narrative EXTERNAL LAB - 12/12/2019 11:54 AM MANAGER ROOFING Verified by Monie Siddiqui on 12/12/2019. us Cathleen Gallegos MD CHEMISTRY ORDERABLES Final Resul t Performing Organization Address [facility] de Phone Number EXTERNAL LAB * Protein /Creatinine Ratio, Urine (12/11/2019 5:49 AM MANAGER ROOFING) Urine Creatinine, Random - External 51 mg/dL EXTERNAL LAB Protein, Urine - External 50.1 EXTERNAL LAB Prot/Creat Ratio - External 0.98 EXTERNAL LAB 12/11/2019 5:49 AM MANAGER ROOFING Narrative EXTERNAL LAB - 12/12/2019 11:54 AM MANAGER ROOFING Verified by Monie Siddiqui on 12/12/2019. us Cathleen Gallegos MD URINE ORDERABLES Final Result Performing Organization Address [facility] de Phone Number EXTERNAL LAB * (ABNORMAL) PTH,Intact (12/11/2019 5:49 AM MANAGER ROOFING) PTH, Intact - External 95(H) 14 - 72 pg/mL EXTERNAL LAB 12/11/2019 5:49 AM MANAGER ROOFING Narrative EXTERNAL LAB - 12/12/2019 11:54 AM MANAGER ROOFING Verified by Monie Siddiqui on 12/12/2019. us Cathleen Gallegos MD CHEMISTRY ORDERABLES Final Resul t Performing Organization Address [facility] de Phone Number EXTERNAL LAB * Lipid Panel(AMA) w/LDL Calculated (12/11/2019 5:49 AM MANAGER ROOFING) Cholesterol LDL Direct - External 78 <130 mg/dL EXTERNAL LAB Total Cholesterol - External 243 EXTERNAL LAB Triglycerides - External 807 EXTERNAL LAB HDL Cholesterol - External 31 EXTERNAL LAB 12/11/2019 5:49 AM MANAGER ROOFING Narrative EXTERNAL LAB - 12/12/2019 11:54 AM MANAGER ROOFING Verified by Monie Siddiqui on 12/12/2019. Cathleen Gallegos MD CHEMISTRY ORDERABLES Final Resul t EXTERNAL LAB * Phosphorus Level (12/11/2019 5:49 AM MANAGER ROOFING) Phosphorous - External 2.6 EXTERNAL LAB 12/11/2019 5:49 AM MANAGER ROOFING Narrative EXTERNAL LAB - 12/12/2019 11:54 AM MANAGER ROOFING Verified by Monie Siddiqui on 12/12/2019. Cathleen Gallegos MD CHEMISTRY ORDERABLES Final Resul t EXTERNAL LAB * (ABNORMAL) Comp Metabolic Panel (12/11/2019 5:49 AM MANAGER ROOFING) Sodium - External 133 133 - 145 mmol/L EXTERNAL LAB Potassium - External 4.9 3.5 - 5.1 mmol/L EXTERNAL LAB Chloride - External 102 96 - 108 mmol/L EXTERNAL LAB CO2 - External 23 21 - 32 mmol/L EXTERNAL LAB Anion Gap - External 12.9 10.0 - 20.0 mmol/L EXTERNAL LAB Glucose - External 359(H) 70 - 105 mg/dL EXTERNAL LAB Urea Nitrogen - External 28(H) 6 - 19 mg/dL EXTERNAL LAB Creatinine - External 1.40(H) 0.50 - 1.30 mg/dL EXTERNAL LAB GFR(Others) - External 48 EXTERNAL LAB GFR() - External 57(L) >=60 EXTERNAL LAB Total Protein - External 2.6 2.6 - 4.5 mg/dL EXTERNAL LAB Albumin - External 3.1 EXTERNAL LAB Calcium - External 8.1 EXTERNAL LAB Total Bilirubin - External 0.3 EXTERNAL LAB AST (SGOT) - External 15 EXTERNAL LAB ALT (SGPT) - External 24 EXTERNAL LAB Alkaline Phos - External 119 EXTERNAL LAB 12/11/2019 5:49 AM MANAGER ROOFING Narrative EXTERNAL LAB - 12/12/2019 11:54 AM MANAGER ROOFING Verified by Monie Siddiqui on 12/12/2019. Cathleen Gallegos MD CHEMISTRY ORDERABLES Final Resul t EXTERNAL LAB * (ABNORMAL) CBC with Differential (12/11/2019 5:49 AM MANAGER ROOFING) White Blood Cells - External 9.51 10(3)/mcL EXTERNAL LAB Red Blood Cells - External 6.17 EXTERNAL LAB Hemoglobin - External 15 12.6 - 17.4 g/dL EXTERNAL LAB Hematocrit - External 49.2 8 - 52.2 % EXTERNAL LAB MCV - External 79.7 0 - 100.0 fL EXTERNAL LAB MCH - External 24.3 EXTERNAL LAB MCHC - External 30.5 5 - 36.0 g/dL EXTERNAL LAB Platelets - External 251 140 - 445 10(3)/mcL EXTERNAL LAB RDW - External 19.6(H) 0 - 15.0 % EXTERNAL LAB Neutrophils - External 55.5 % EXTERNAL LAB Lymphocytes - External 30.1 % EXTERNAL LAB Monocytes - External 10.8 % EXTERNAL LAB Eosinophils - External 1.8 % EXTERNAL LAB Basophils - External 1.6 % EXTERNAL LAB Neutrophils Abs (cells/uL) - External 5.28 cells/uL EXTERNAL LAB Lymph Absolute - External 2.86 10(3)/mcL EXTERNAL LAB [place] Absolute - External 1.03(H) 0.10 - 0.80 10(3)/mcL EXTERNAL LAB - External 0.17 0.00 - 0.30 10(3)/mcL EXTERNAL LAB Basophil Absolute - External 0.15(H) 0.00 - 0 10(3)/mcL EXTERNAL LAB 12/11/2019 5:49 AM MANAGER ROOFING Narrative EXTERNAL LAB - 12/12/2019 11:54 AM MANAGER ROOFING Verified by Monie Siddiqui on 12/12/2019. us Cathleen Gallegos MD HEMATOLOGY ORDERABLES Final Resu lt EXTERNAL LAB documented in this encounter Visit Diagnoses Diagnosis Secondary renal hyperparathyroidism (CMS-HCC) Secondary hyperparathyroidism (of renal origin) Kidney transplant 01/02/2008 Liver transplant 01/02/2008 Liver replaced by transplant documented in this encounter Additional Health Concerns Infection Onset Date Last Indicated Resolved Time COVID-19 Comment:Tested + on 09/0109/01/2020 09/05/2020 09/25/2020 12: 31 AM MANAGER ROOFING documented as of this encounter Care Teams Base Draw Operator Relationship Specialty Start Date End Date Juan Laguerre MD [address] [facility] [address] [place], [place] [phone] PCP - General Family Medicine 01/02/18 Aubrey Crabtree III, MD [address] [facility] [address] [place] [address] Hematology and Medical Oncology 10/01/18 Jaki Nieves, PhD [address] [facility] [address] [place] [address] Genetic Counseling 11/27/18 documented as of this encounter
--- OUTSIDE RECORDS SUMMARY | 2025-08-09 09:33 | XMS_ITS | Encounter Summary ---
Author Organization [facility] Address [address] [place] [address] Care Team Providers Care Luncheonette Manager Name Role Phone Juan Laguerre MD Primary Care Provider [phone] Bro AWAN MD, Aubrey Lane Unavailable [phone] Jaki Nieves PhD Unavailable [phone] Source Comments In the event that this is information that is protected by federal Confidentiality of Substance User Disorder Patient Records, 42 CFR Part 2 prohibits the unauthorized disclosure of these records.[facility] Encounter Details Date Type Department Care Team (Late Contact Info) Description 07/03/2018 Procedure Pass [place] Gastroenterology [address] [facility], 4th [place] [address] Social History Tobacco Use Types Packs/Day Years [...] Upcoming Encounters Date Type Department Care Team ([facility] Contact Info) Description 07/15/2026 1:00 PM CDT Office Visit NM Transplant Surgery [address] [facility], 19th Floor [address] [place] [address] Apt confirmed-EH documented as of this encounter Visit Diagnoses Not on filedocumented in this encounter Additional Health Concerns Infection Onset Date Last Indicated Resolved Time COVID-19 Comment:Tested + on 09/0109/01/2020 09/05/2020 09/25/2020 12: 31 AM COUNTER WAITRESS/WAITER documented as of this encounter Care Teams Luncheonette Manager Relationship Specialty Start Date End Date Juan Laguerre MD [address] [id number] PCP - General Family Medicine 01/02/18 Aubrey Crabtree III, MD [address] [address] Hematology and Medical Oncology 10/01/18 Jaki Nieves, PhD [address] [facility] [address] [place] [address] Genetic Counseling 11/27/18 documented as of this encounter
--- OUTSIDE RECORDS SUMMARY | 2025-08-09 09:33 | XMS_ITS | Encounter Summary ---
Author Organization [facility] Address [address] [place] [address] Care Team Providers Care Grain Manager Name Role Phone Juan Laguerre MD Primary Care Provider [phone] Bro AWAN MD, Aubrey Lane Unavailable [phone] Jaki Nieves PhD Unavailable [phone] Source Comments In the event that this is information that is protected by federal Confidentiality of Substance User Disorder Patient Records, 42 CFR Part 2 prohibits the unauthorized disclosure of these records.[facility] Encounter Details Date Type Department Care Team (Latest Contact Info) Description 07/16/2018 Prep for Procedure NM Transplant Surgery [address] [facility], [address]th [address] [place], [place] [address] Rell Painting MD [address] [facility] [address] [address] Adenocarcinoma of pancreas (Primary Dx) Social History Tobacco Use Types [...] Office Visit NM Transplant Surgery [address] [facility], [address]th [address] [place] [address] Apt confirmed-EH documented as of this encounter Visit Diagnoses Diagnosis Adenocarcinoma of pancreas (CMS-HCC)- Primary Malignant neoplasm of pancreas, part unspecified documented in this encounter Additional Health Concerns Infection Onset Date Last Indicated Resolved Time COVID-19 Comment:Tested + on 09/0109/01/2020 09/05/2020 09/25/2020 12: 31 AM BLEACH CHLORINATOR documented as of this encounter Care Teams Grain Manager Relationship Specialty Start Date End Date Juan Laguerre MD [address] [facility] [address] [place], [place] [phone] PCP - General Family Medicine 01/02/18 Aubrey Crabtree III, MD [address] [facility] [address] [place] [address] Hematology and Medical Oncology 10/01/18 Jaki Nieves, PhD [address] [facility] [address] [place] [address] Genetic Counseling 11/27/18 documented as of this encounter
--- OUTSIDE RECORDS SUMMARY | 2025-08-09 09:33 | XMS_ITS | Encounter Summary ---
Author Organization [facility] Address [address] [place] [address] Care Team Providers Care Tobacco Buyer Name Role Phone Juan Laguerre MD Primary Care Provider [phone] Bro AWAN MD, Aubrey Lane Unavailable [phone] Jaki Nieves PhD Unavailable [phone] Source Comments In the event that this is information that is protected by federal Confidentiality of Substance User Disorder Patient Records, 42 CFR Part 2 prohibits the unauthorized disclosure of these records.[facility] Encounter Details Date Type Department Care Team (Late Contact Info) Description 02/01/2020 Orders Only NM Transplant Surgery [address] [facility], 19th [address] [place] [address] Vivi Ponce Social History Tobacco Use Types [...] Visit NM Transplant Surgery [address] [facility] [address] [place] [address] Apt confirmed-EH documented as of this encounter Procedures Procedure Name Priority Date/Time Associated Diagnosis Comments BASIC METABOLIC PANEL Routine 02/07/2020 12:00 AM CDT documented in this encounter Results * Basic Metabolic Panel (02/07/2020 12:00 AM CDT) Glucose - External 353 EXTERNAL LAB Urea Nitrogen - External 29 EXTERNAL LAB Creatinine - External 1.6 EXTERNAL LAB Sodium - External 136 EXTERNAL LAB Potassium - External 4.7 EXTERNAL LAB Chloride - External 99 EXTERNAL LAB Anion Gap - External 13.7 EXTERNAL LAB CO2 - External 28 EXTERNAL LAB Calcium - External 9.5 EXTERNAL LAB GFR() - External 53.6 EXTERNAL LAB GFR(Others) - External 44.3 EXTERNAL LAB 02/07/2020 Narrative EXTERNAL LAB - 02/20/2021 2:43 PM CDT Verified by Monie Siddiqui on 02/17/2021. us Rell Painting MD CHEMISTRY ORDERABLES Final Result EXTERNAL LAB documented in this encounter Visit Diagnoses Diagnosis 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 transplant documented in this encounter Additional Health Concerns Infection Onset Date Last Indicated Resolved Time COVID-19 Comment:Tested + on 09/0109/01/2020 09/05/2020 09/25/2020 12: 31 AM DIRECTOR CORRECTIONAL AGENCY documented as of this encounter Care Teams Tobacco Buyer Relationship Specialty Start Date End Date Juan Laguerre MD [address] [facility] [address] [address] PCP - General Family Medicine 01/02/18 Aubrey Crabtree III, MD [address] [facility] [address] [place] [address] Hematology and Medical Oncology 10/01/18 Jaki Nieves, PhD [address] [facility] [address] [place] [address] Genetic Counseling 11/27/18 documented as of this encounter
--- OUTSIDE RECORDS SUMMARY | 2025-08-09 09:33 | XMS_ITS | Encounter Summary ---
Author Organization [facility] Address [address] [place] [address] Care Team Providers Care Data Librarian Name Role Phone Juan Laguerre MD Primary Care Provider [phone] Bro AWAN MD, Aubrey Lane Unavailable [phone] Jaki Nieves PhD Unavailable [phone] Source Comments In the event that this is information that is protected by federal Confidentiality of Substance User Disorder Patient Records, 42 CFR Part 2 prohibits the unauthorized disclosure of these records.[facility] Encounter Details Date Type Department Care Team (Late Contact Info) Description 08/17/2019 Orders Only NM Transplant Surgery [address] [facility], 19th Floor [address] [place] [address] Cara Cook RN Social History Tobacco Use [...] [address] [place] [address] Apt confirmed-EH documented as of this encounter Visit Diagnoses Diagnosis 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) Liver replaced by transplant Kidney replaced by transplant documented in this encounter Additional Health Concerns Infection Onset Date Last Indicated Resolved Time COVID-19 Comment:Tested + on 09/0109/01/2020 09/05/2020 09/25/2020 12: 31 AM MANAGER FIELD SALES documented as of this encounter Care Teams Data Librarian Relationship Specialty Start Date End Date Juan Laguerre MD [address] [facility] [address] [place], [place] [phone] PCP - General Family Medicine 01/02/18 Aubrey Crabtree III, MD [address] [facility] [address] [place] [address] Hematology and Medical Oncology 10/01/18 Jaki Nieves, PhD [address] [place] [address] Genetic Counseling 11/27/18 documented as of this encounter
--- OUTSIDE RECORDS SUMMARY | 2025-08-09 09:33 | XMS_ITS | Encounter Summary ---
Author Organization [facility] Address [address] [place] [address] Care Team Providers Care Hr Representative Name Role Phone Juan Laguerre MD Primary Care Provider [phone] Bro AWAN MD, Aubrey Lane Unavailable [phone] Jaki Nieves PhD Unavailable [phone] Source Comments In the event that this is information that is protected by federal Confidentiality of Substance User Disorder Patient Records, 42 CFR Part 2 prohibits the unauthorized disclosure of these records.[facility] Encounter Details Date Type Department Care Team (Late Contact Info) Description 02/29/2020 Orders Only NM Transplant Surgery [address] [facility], 19th Floor [address] [place] [address] Vivi Ponce Social History Tobacco Use Types [...] [address], [address] [place] [address] Apt confirmed-EH documented as of this encounter Procedures Procedure Name Priority Date/Time Associated Diagnosis Comments PTH, INTACT Routine 03/09/2020 7:49 AM CDT MYCOPHENOLIC ACID Routine 03/09/2020 7:4 9 AM CDT VITAMIN D 25-HYDROXY Routine 03/09/2020 7:49 AM CDT BK VIRUS DNA QUANT PCR, BLOOD Routine 03/09/2020 7:49 AM CDT URINALYSIS WITH MICROSCOPIC Routine 03/09/2020 7:49 AM CDT CBC AND DIFFERENTIAL Routine 03/09/2020 7:49 AM CDT LIPID PANEL (AMA) W/LDL CALC Routine 03/09/2020 7:49 AM CDT EVEROLIMUS LEVEL Routine 03/09/2020 7:46 AM CDT CARBOHYDRATE ANTIGEN 19-9 (CA19-9) Routine 03/01/2020 12:00 AM CDT CBC AND DIFFERENTIAL Routine 03/01/2020 12:00 AM CDT COMPREHENSIVE METABOLIC PANEL Routine 03/01/2020 12:00 AM CDT documented in this encounter Results * Mycophenolic Acid (03/09/2020 7:49 AM CDT) Mycophenolic Acid - External 2.2 1.0 - 3.5 ug/mL EXTERNAL LAB 03/09/2020 7:49 AM CDT Narrative EXTERNAL LAB - 03/14/2020 8:48 AM CDT Verified by Koki Burks on 03/14/2020. us Physician Non-Staff CHEMISTRY ORDERABLES Final R esult Performing Organization Address [facility] Co de Phone Number EXTERNAL LAB * BK Virus DNA Quant PCR, Blood (03/09/2020 7:49 AM CDT) Pathologist [facility] BK Virus DNA, Qn PCR - External DETECTED EXTERNAL LAB 03/09/2020 7:49 AM CDT Narrative EXTERNAL LAB - 03/14/2020 8:24 AM CDT Verified by Koki Burks on 03/14/2020. Physician Non-Staff IMMUNOLOGY ORDERABLES Final Result Performing Organization Address [facility] Co de Phone Number EXTERNAL LAB * Vitamin D 25-Hydroxy (03/09/2020 7:49 AM CDT) Pathologist [facility] Vitamin D, 25-Hydroxy, Total - External 23 ng/mL EXTERNAL LAB 03/09/2020 7:49 AM CDT Narrative EXTERNAL LAB - 03/09/2020 12:37 PM CDT Verified by Monie Siddiqui on 03/09/2020. Edwin Del Toro MD CHEMISTRY ORDERABLES Final Result Performing Organization Address [facility] Phone Number EXTERNAL LAB * (ABNORMAL) Urinalysis with microscopic (03/09/2020 7:49 AM CDT) Pathologist [facility] Specific [place], Urine - External 1.018 1.003 - 1.035 EXTERNAL LAB UA pH - External 6.0 5.0 - 8.0 EXTERNAL LAB UA Leukocyte Esterase - External Negative Negative EXTERNAL LAB UA Nitrate - External Negative Negative EXTERNAL LAB UA Protein - External 1+(A) Negative EXTERNAL LAB UA Glucose - External 4+(A) Negative EXTERNAL LAB UA Ketones - External [...] - External 0-5 0-5, /hpf EXTERNAL LAB 03/09/2020 7:49 AM CDT Narrative EXTERNAL LAB - 03/09/2020 12:37 PM CDT Verified by Monie Siddiqui on 03/09/2020. Edwin Del Toro MD URINE ORDERABLES Final Res ult Performing Organization Address [facility] Co de Phone Number EXTERNAL LAB * (ABNORMAL) PTH,Intact (03/09/2020 7:49 AM CDT) PTH, Intact - External 101(H) 14 - 72 pg/mL EXTERNAL LAB 03/09/2020 7:49 AM CDT Narrative EXTERNAL LAB - 03/09/2020 12:37 PM CDT Verified by Monie Siddiqui on 03/09/2020. Edwin Del Toro MD CHEMISTRY ORDERABLES Final Result Performing Organization Address [facility] de Phone Number EXTERNAL LAB * (ABNORMAL) Lipid Panel(AMA) w/LDL Calculated (03/09/2020 7:49 AM CDT) Total Cholesterol - External 231(H) mg/dL EXTERNAL LAB Triglycerides - External 436(H) 0 - 149 mg/dL EXTERNAL LAB HDL Cholesterol - External 34(L) 40 - 100 mg/dL EXTERNAL LAB Cholesterol LDL Direct - External 124 <130 mg/dL EXTERNAL LAB 03/09/2020 7:49 AM CDT Narrative EXTERNAL LAB - 03/09/2020 12:37 PM CDT Verified by Monie Siddiqui on 03/09/2020. Edwin Del Toro MD CHEMISTRY ORDERABLES Final Result Performing Organization Address City/[facility] Co de Phone Number EXTERNAL LAB * (ABNORMAL) CBC with Differential (03/09/2020 7:49 AM CDT) Neutrophils Abs (cells/uL) - External 5.01 1.40 - 7.30 cells/uL EXTERNAL LAB Lymph Absolute - External 2.10 10(3)/mcL EXTERNAL LAB [place] Absolute - External 0.48 0.10 - 0.80 10(3)/mcL EXTERNAL LAB - External 0.24 0.00 - 0.30 10(3)/mcL EXTERNAL LAB Basophil Absolute - External 10(H) 0.00 - 0 10(3)/mcL EXTERNAL LAB Neutrophils - External 60 % EXTERNAL LAB Lymphocytes - External 24 19 - 49 % EXTERNAL LAB Monocytes - External 6 3 - 13 % EXTERNAL LAB Eosinophils - External 3 0 - 8 % EXTERNAL LAB Basophils - External 2(H) 0 - 1 % EXTERNAL LAB White Blood Cells - External 8.08 10(3)/mcL EXTERNAL LAB Red Blood Cells - External 6.42(H) 4.20 - 5.80 10(6)/mcL EXTERNAL LAB Hemoglobin - External 15.4 EXTERNAL LAB Hematocrit - External 50.9 39.8 - 52.2 % EXTERNAL LAB MCHC - External 30.3(L) 31.5 - 36.0 g/dL EXTERNAL LAB Platelets - External 208 140 - 445 10(3)/mcL EXTERNAL LAB RDW - External 18.5(H) 12.0 - 15.0 % EXTERNAL LAB MCH - External 24 EXTERNAL LAB MCV - External 79.3 EXTERNAL LAB 03/09/2020 7:49 AM CDT Narrative EXTERNAL LAB - 03/09/2020 12:37 PM CDT Verified by Monie Siddiqui on 03/09/2020. us Edwin Del Toro MD HEMATOLOGY ORDERABLES Joana l Result EXTERNAL LAB * Everolimus Level (03/09/2020 7:46 AM CDT) Everolimus Level - External 6.0 EXTERNAL LAB 03/09/2020 7:46 AM CDT Narrative EXTERNAL LAB - 03/11/2020 11:54 AM CDT Verified by Monie Siddiqui on 03/11/2020. Cathleen Gallegos MD CHEMISTRY ORDERABLES Final Resul t EXTERNAL LAB * Carbohydrate Antigen 19-9 (03/01/2020 12:00 AM CDT) CA 19 9 - External 8 EXTERNAL LAB 03/01/2020 Narrative EXTERNAL LAB - 03/03/2020 3:31 PM CDT Verified by Monie Siddiqui on 03/03/2020. Rell Painting MD IMMUNOLOGY ORDERABLES Final Result Performing Organization Address City/[facility]/ZIP Co de Phone Number EXTERNAL LAB * CBC with Differential (03/01/2020 12:00 AM CDT) White Blood Cells - External 10.7 EXTERNAL LAB Hemoglobin - External 15.5 EXTERNAL LAB Hematocrit - External 50.8 EXTERNAL LAB Platelets - External 185 EXTERNAL LAB Red Blood Cells - External 6.41 EXTERNAL LAB MCV - External 79 EXTERNAL LAB MCH - External 24.2 EXTERNAL LAB MCHC - External 30.8 EXTERNAL LAB RDW - External 19.1 EXTERNAL LAB Neutrophils Abs (cells/uL) - External 5,126 cells/uL EXTERNAL LAB Lymph Absolute - External 4,056 EXTERNAL LAB Basophil Absolute - External 107 EXTERNAL LAB [place] Absolute - External 1,388 EXTERNAL LAB Neutrophils - External 48 EXTERNAL LAB Lymphocytes - External 35 EXTERNAL LAB Monocytes - External 13 EXTERNAL LAB Basophils - External 1 EXTERNAL LAB 03/01/2020 Narrative EXTERNAL LAB - 03/03/2020 3:31 PM CDT Verified by Monie Siddiqui on 03/03/2020. Rell Painting MD HEMATOLOGY ORDERABLES Final Result Performing Organization Address [facility] de Phone Number EXTERNAL LAB * Comp Metabolic Panel (03/01/2020 12:00 AM CDT) AST (SGOT) - External 16 13 - 39 U/L EXTERNAL LAB Glucose - External 222 EXTERNAL LAB ALT (SGPT) - External 16 EXTERNAL LAB Creatinine - External 1.7 EXTERNAL LAB Urea Nitrogen - External 32 EXTERNAL LAB Chloride - External 99 EXTERNAL LAB Sodium - External 132 EXTERNAL LAB Total Bilirubin - External 0.5 EXTERNAL LAB Alkaline Phos - External 69 EXTERNAL LAB Total Protein - External 7.0 EXTERNAL LAB Albumin - External 3.8 EXTERNAL LAB CO2 - External 27 EXTERNAL LAB Calcium - External 9.4 EXTERNAL LAB GFR() - External 50.1 EXTERNAL LAB GFR(Others) - External 41.4 EXTERNAL LAB Anion Gap - External 10.8 EXTERNAL LAB Potassium - External 4.8 EXTERNAL LAB 03/01/2020 Narrative EXTERNAL LAB - 03/03/2020 3:31 PM CDT Verified by Monie Siddiqui on 03/03/2020. 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
--- OUTSIDE RECORDS SUMMARY | 2025-08-09 09:33 | XMS_ITS | Encounter Summary ---
Author Organization [facility] Address [address] [place] [address] Care Team Providers Care Staff Radiation Therapist Name Role Phone Juan Laguerre MD Primary Care Provider [phone] Bro AWAN MD, Aubrey Lane Unavailable [phone] Jaki Nieves PhD Unavailable [phone] Source Comments In the event that this is information that is protected by federal Confidentiality of Substance User Disorder Patient Records, 42 CFR Part 2 prohibits the unauthorized disclosure of these records.[facility] Encounter Details Date Type Department Care Team (Late st Contact Info) Description 10/07/2018 Orders Only [place] Transplant Surgery [address] [facility], 19th [address] [place], [place] [address] Makayla Cesar, GRANTS SPECIALIST, SCIENCE MANAGER [address] [facility] [address] [place] [address] Social History Tobacco Use Types Packs/Day Years [...] Office Visit [place] Transplant Surgery [address] [facility], 19th [address] [place] [address] Apt confirmed-EH documented as of this encounter Visit Diagnoses Diagnosis Liver transplant recipient (CMS-HCC) documented in this encounter Additional Health Concerns Infection Onset Date Last Indicated Resolved Time COVID-19 Comment:Tested + on 09/0109/01/2020 09/05/2020 09/25/2020 12: 31 AM LEVI MAKER documented as of this encounter Care Teams Staff Radiation Therapist Relationship Specialty Start Date End Date Juan Laguerre MD [address] [facility] [address] [place] [address] PCP - General Family Medicine 01/02/18 Aubrey Crabtree III, MD [address] [facility] [address] [place] [address] Hematology and Medical Oncology 10/01/18 Jaki Nieves, PhD [address] [facility] [address] [place] [address] Genetic Counseling 11/27/18 documented as of this encounter
--- OUTSIDE RECORDS SUMMARY | 2025-08-09 09:33 | XMS_ITS | Encounter Summary ---
Author Organization [facility] Address [address] [place] [address] Care Team Providers Care Manager Aviation Name Role Phone Juan Laguerre MD Primary Care Provider [phone] Bro AWAN MD, Aubrey Lane Unavailable [phone] Jaki Nieves PhD Unavailable [phone] Source Comments In the event that this is information that is protected by federal Confidentiality of Substance User Disorder Patient Records, 42 CFR Part 2 prohibits the unauthorized disclosure of these records.[facility] Encounter Details Date Type Department Care Team (Late Contact Info) Description 06/06/2020 Orders Only NM Transplant Surgery [address] [facility], 19th Floor [address] [place] [address] Vivi Ponce Social History Tobacco Use Types [...] [address], [address] [place] [address] Apt confirmed-EH documented as of this encounter Procedures Procedure Name Priority Date/Time Associated Diagnosis Comments PTH, INTACT Routine 06/22/2020 5:42 PM CDT 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) Vitamin D deficiency VITAMIN D 25-HYDROXY Routine 06/22/2020 5:42 PM CDT 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) Vitamin D deficiency LIPID PANEL (AMA) W/LDL CALC Routine 06/22/2020 5:42 PM CDT 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) documented in this encounter Results * Vitamin D, 25-OH (Total D2/D3) (06/22/2020 5:42 PM CDT) Vitamin D, 25-Hydroxy, Total - External 29 ng/mL EXTERNAL LAB Blood 06/22/2020 5:42 PM CDT Narrative EXTERNAL LAB - 06/23/2020 8:33 AM CDT Verified by Monie Siddiqui on 06/23/2020. us Edwin Del Toro MD CHEMISTRY ORDERABLES Final Result EXTERNAL LAB * PTH,Intact (06/22/2020 5:42 PM CDT) PTH, Intact - External 45 14 - 72 pg/mL EXTERNAL LAB Blood 06/22/2020 5:42 PM CDT Narrative EXTERNAL LAB - 06/23/2020 8:33 AM CDT Verified by Monie Siddiqui on 06/23/2020. us Edwin Del Toro MD CHEMISTRY ORDERABLES Final Result EXTERNAL LAB * (ABNORMAL) Lipid Panel(AMA) w/LDL Calculated (06/22/2020 5:42 PM CDT) Total Cholesterol - External 247(H) 0 - 199 mg/dL EXTERNAL LAB Triglycerides - External 398(H) 0 - 149 mg/dL EXTERNAL LAB HDL Cholesterol - External 41 40 - 100 mg/dL EXTERNAL LAB Cholesterol LDL Direct - External 126 <130 mg/dL EXTERNAL LAB Blood 06/22/2020 5:42 PM CDT Narrative EXTERNAL LAB - 06/23/2020 8:33 AM CDT Verified by Monie Siddiqui on 06/23/2020. 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 [address] [place] [address] PCP - General Family Medicine 01/02/18 Aubrey Crabtree III, MD [address] [facility] [address] [place] [address] Hematology and Medical Oncology 10/01/18 Jaki Nieves, PhD [address] [facility] [address] [place] [address] Genetic Counseling 11/27/18 documented as of this encounter
--- OUTSIDE RECORDS SUMMARY | 2025-08-09 09:33 | XMS_ITS | Encounter Summary ---
Author Organization [facility] Address [address] [place] [address] Care Team Providers Care Gas Welding Equipment Mechanic Name Role Phone Juan Laguerre MD Primary Care Provider [phone] Bro AWAN MD, Aubrey Lane Unavailable [phone] Jaki Nieves PhD Unavailable [phone] Source Comments In the event that this is information that is protected by federal Confidentiality of Substance User Disorder Patient Records, 42 CFR Part 2 prohibits the unauthorized disclosure of these records.[facility] Encounter Details Date Type Department Care Team (Late st Contact Info) Description 08/24/2019 Orders Only NM Transplant Surgery [address] [facility], 19th Floor [address] [place], [place] [address] Cathleen Gallegos MD [address] [facility] [address], [place] [address] Social History Tobacco Use Types Packs/Day Years [...] Visit [place] Transplant Surgery [address] [facility], 19th [address] [place] [address] Apt confirmed-EH documented as of this encounter Visit Diagnoses Diagnosis Kidney transplant 01/02/2008 documented in this encounter Additional Health Concerns Infection Onset Date Last Indicated Resolved Time COVID-19 Comment:Tested + on 09/0109/01/2020 09/05/2020 09/25/2020 12: 31 AM 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
--- OUTSIDE RECORDS SUMMARY | 2025-08-09 09:33 | XMS_ITS | Encounter Summary ---
Author Organization [facility] Address [address] [place] [address] Care Team Providers Care Cell Geneticist Name Role Phone Juan Laguerre MD Primary Care Provider [phone] Bro AWAN MD, Aubrey Lane Unavailable [phone] Jaki Nieves PhD Unavailable [phone] Source Comments In the event that this is information that is protected by federal Confidentiality of Substance User Disorder Patient Records, 42 CFR Part 2 prohibits the unauthorized disclosure of these records.[facility] Encounter Details Date Type Department Care Team (Late st Contact Info) Description 10/19/2019 Orders Only NM Transplant Surgery [address] [facility], 19th Floor [address] [place], [place] [address] Cathleen Gallegos MD [address] [facility] [address], [place] [address] Social History Tobacco Use Types Packs/Day Years [...] [address] [facility], 19th Floor [address] [place] [address] Apt confirmed-EH documented as of this encounter Visit Diagnoses Diagnosis Kidney transplant 01/02/2008 documented in this encounter Additional Health Concerns Infection Onset Date Last Indicated Resolved Time COVID-19 Comment:Tested + on 09/0109/01/2020 09/05/2020 09/25/2020 12: 31 AM CORPORATE EXECUTIVE documented as of this encounter Care Teams Cell Geneticist Relationship Specialty Start Date End Date Juan Laguerre MD [address] [facility] [address] [place] [address] PCP - General Family Medicine 01/02/18 Aubrey Crabtree III, MD [address] [facility] [address] [place] [address] Hematology and Medical Oncology 10/01/18 Jaki Nieves, PhD [address] [facility] [address] [place] [address] Genetic Counseling 11/27/18 documented as of this encounter
--- OUTSIDE RECORDS SUMMARY | 2025-08-09 09:33 | XMS_ITS | Encounter Summary ---
Author Organization [facility] Address [address] [place] [address] Care Team Providers Care House Painter Name Role Phone Juan Laguerre MD Primary Care Provider [phone] Bro AWAN MD, Aubrey Lane Unavailable [phone] Jaki Nieves PhD Unavailable [phone] Source Comments In the event that this is information that is protected by federal Confidentiality of Substance User Disorder Patient Records, 42 CFR Part 2 prohibits the unauthorized disclosure of these records.[facility] Encounter Details Date Type Department Care Team (Late st Contact Info) Description 07/12/2025 Orders Only NM Transplant Surgery [address] [facility], [address]th [address] [place], [place] [address] Cathleen Gallegos MD [address] [facility] [address] [address] Social History Tobacco Use Types Packs/Day Years [...] [facility] [address] [address] [place] [address] Apt confirmed-EH documented as of this encounter [...] monitoring documented in this encounter Care Teams House Painter Relationship Specialty Start Date End Date Juan Laguerre MD [address] [facility] [address] [place] [address] PCP - General Family Medicine 01/02/18 Aubrey Crabtree III, MD [address] [address] Hematology and Medical Oncology 10/01/18 Jaki Nieves, PhD [address] [facility] [address] [place], [place] [address] Genetic Counseling 11/27/18 documented as of this encounter
--- OUTSIDE RECORDS SUMMARY | 2025-08-09 09:33 | XMS_ITS | Encounter Summary ---
Author Organization [facility] Address [address] [place] [address] Care Team Providers Care Magazine Writer Name Role Phone Juan Laguerre MD Primary Care Provider [phone] Bro AWAN MD, Aubrey Lane Unavailable [phone] Jaki Nieves PhD Unavailable [phone] Source Comments In the event that this is information that is protected by federal Confidentiality of Substance User Disorder Patient Records, 42 CFR Part 2 prohibits the unauthorized disclosure of these records.[facility] Encounter Details Date Type Department Care Team (Late Contact Info) Description 06/09/2018 Procedure Pass Sole Radiology [address] [facility], [address] [place] [address] Social History Tobacco Use Types Packs/Day Years [...] [facility], 19th Floor [address] [place] [address] Apt confirmed-EH documented as of this encounter Visit Diagnoses Not on filedocumented in this encounter Additional Health Concerns Infection Onset Date Last Indicated Resolved Time COVID-19 Comment:Tested + on 09/0109/01/2020 09/05/2020 09/25/2020 12: 31 AM DATABASE CONSULTANT documented as of this encounter Care Teams Magazine Writer Relationship Specialty Start Date End Date Juan Laguerre MD [address] [place] [id number] PCP - General Family Medicine 01/02/18 Aubrey Crabtree III, MD [address] [address] Hematology and Medical Oncology 10/01/18 Jaki Nieves, PhD [address] [facility] [address] [place] [address] Genetic Counseling 11/27/18 documented as of this encounter
--- OUTSIDE RECORDS SUMMARY | 2025-08-09 09:33 | XMS_ITS | Encounter Summary ---
Author Organization [facility] Address [address] [place] [address] Care Team Providers Care Auto Mechanic Apprentice Name Role Phone Juan Laguerre MD Primary Care Provider [phone] Bro AWAN MD, Aubrey Lane Unavailable [phone] Jaki Nieves PhD Unavailable [phone] Source Comments In the event that this is information that is protected by federal Confidentiality of Substance User Disorder Patient Records, 42 CFR Part 2 prohibits the unauthorized disclosure of these records.[facility] Encounter Details Date Type Department Care Team (Late Contact Info) Description 07/14/2018 FS Transcribe Orders NM Transplant Surgery [address] [facility], 19th Floor [address] [place] [address] Forrest Randle Social History Tobacco Use Types Packs/Day Years [...] [address], [address] [place] [address] Apt confirmed-EH documented as of this encounter Visit Diagnoses Not on filedocumented in this encounter Additional Health Concerns Infection Onset Date Last Indicated Resolved Time COVID-19 Comment:Tested + on 09/0109/01/2020 09/05/2020 09/25/2020 12: 31 AM 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
--- OUTSIDE RECORDS SUMMARY | 2025-08-09 09:33 | XMS_ITS | Encounter Summary ---
Author Organization [facility] Address [address] [place] [address] Care Team Providers Care Video Tape Duplicator Name Role Phone Juan Laguerre MD Primary Care Provider [phone] Bro AWAN MD, Aubrey Lane Unavailable [phone] Jaki Nieves PhD Unavailable [phone] Source Comments In the event that this is information that is protected by federal Confidentiality of Substance User Disorder Patient Records, 42 CFR Part 2 prohibits the unauthorized disclosure of these records.[facility] Encounter Details Date Type Department Care Team (Late Contact Info) Description 05/23/2020 Orders Only [place] Transplant Surgery [address] [facility], [address] [place] [address] Vivi Ponce Social History Tobacco Use Types [...] [address], [address] [place] [address] Apt confirmed-EH documented as of this encounter Visit Diagnoses Diagnosis 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 transplant documented in this encounter Additional Health Concerns Infection Onset Date Last Indicated Resolved Time COVID-19 Comment:Tested + on 09/0109/01/2020 09/05/2020 09/25/2020 12: 31 AM [employer] DIRECT[employer] documented as of this encounter Care Teams Video Tape Duplicator Relationship Specialty Start Date End Date Juan Laguerre MD [address] [facility] [address] [place], [place] [id number] PCP - General Family Medicine 01/02/18 Aubrey Crabtree III, MD [address] [facility] [address] [place] [address] Hematology and Medical Oncology 10/01/18 Jaki Nieves, PhD [address] [place], [place] [id number] Genetic Counseling 11/27/18 documented as of this encounter
--- OUTSIDE RECORDS SUMMARY | 2025-08-09 09:34 | XMS_ITS | Clinical Summary ---
Author Organization [facility] Address [address] [place] [address] Care Team Providers Care Continuity Clerk Name Role Phone Juan Laguerre MD Primary Care Provider [phone] Bro AWAN MD, Aubrey Lane Unavailable [phone] Jaki Nieves PhD Unavailable [phone] Source Comments In the event that this is information that is protected by federal Confidentiality of Substance UseDisorder Patient Records, 42 CFR Part 2 prohibits the unauthorized disclosure of these records.[facility] Allergies No known active allergies Medications CALCIUM CARBONATE/VIT ELLISON D3 (OS-NASRIN 500 + D ORAL) Take 1 tablet by mouth daily. 008 Active pregabalin 300 mg capsule Take 300 mg by mouth 2 (two) times daily. 016 Active pantoprazole 40 mg tablet Take 40 mg by mouth daily. Active VITAMIN B COMPLEX ORAL Take 1 tablet by mouth daily. Active lancets (ONETOUCH DELICA LANCETS) 30 gauge [facility] 120 [place] by [facility]. (Non-Drug;Combo Route) route 4 (four) times daily. 120 Needle 018 Active Insulin [place], Disposable, (MATEUS PEN NEEDLE) 32 gauge x 5/32 Needle QID testing 120 Needle 018 Active HUMALOG KWIKPEN INSULIN 100 unit/mL Insulin Pen INJECT SUBCUTANEOUSLY UP TO 12 UNITS WITH EACH MEAL ACCORDING TO PROVIDER INSTRUCTIONS AND SLIDING SCALE. 45 mL 2 019 Active Additional Information Patient taking differently: ONCE, Reported on 12/25/2019 DULoxetine 60 mg capsule Take 120 mg by mouth daily. Active insulin detemir (LEVEMIR U-100 INSULIN SUBQ) Inject 22 Units into the skin. Active magnesium oxide 400 mg tablet Take 1 tablet by mouth daily. 30 tablet 2 019 Active metoprolol succinate 25 mg XL tablet Take 25 mg by mouth daily. Active JARDIANCE 25 mg Tablet Take 1 tablet by mouth daily with breakfast. 024 Active mycophenolate sodium 180 mg tablet,delaye d release (DR/EC)Indica tions:Kidney replaced by transplant,Li ivan [place] [place] Take 2 tablets by mouth BID 6A & 6P. 360 tablet 3 025 Active sulfamethoxaz ole-trimethop rim 400-80 mg per tabletIndicat ions:Kidney replaced by transplant,Li ivan replaced [place] [place] Take 1 tablet by mouth every Saturday, Saturday, Saturday. 36 tablet 3 025 Active everolimus, immunosuppres sive, 0.5 mg TabletIndicat ions:Kidney replaced by transplant,Li ivan replaced [place] [place] Take 3 tablets by mouth 2 (two) times daily. 540 tablet 3 025 Active sulfamethoxaz ole-trimethop rim 400-80 mg per tabletIndicat ions:Liver replaced [place] [place]Kid karen replaced by transplant Take 1 tablet by mouth every Saturday, Saturday, Saturday. 36 tablet 3 025 2024 Discontinued(R eorder) mycophenolate sodium 180 mg tablet,delaye d release (DR/EC)Indica tions:Liver replaced [place] [place]Kid karen replaced by transplant Take 2 tablets by mouth BID 6A & 6P. 360 tablet 3 025 2024 Discontinued(R eorder) everolimus, immunosuppres sive, 0.5 mg TabletIndicat ions:Liver replaced [place] [place]Kid karen replaced by transplant Take 3 tablets by mouth 2 (two) times daily. 540 tablet 3 025 2024 Discontinued(R eorder) fenofibrate 145 mg tablet Take 1 tablet by mouth. 025 2024 Discontinued Active Problems Problem Noted Date Diagnosed Date COVID-19 in immunocompromised patient 07/31/2023 Assessment & Plan (07/31/2023 9:57 AM CDT): Educated about warning signs requiring hospitalization for moderate to severe COVID-19. Also educated about drug interactions with Paxlovid. Hypertriglyceridemia 10/03/2022 Assessment & Plan (07/12/2025 11:47 AM CDT): Recommended more aggressive control. Previously failed 2 statins d/t pain in bilateral lower extremities. Recommended discussing icosapent ethyl therapy instead of fenofibrate due to prison risks to the kidney and liver. Assessment & Plan (10/05/2022 11:46 AM COAT PADDER): Recommended more aggressive control. 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 Health care maintenance 08/11/2020 Assessment & Plan (07/31/2023 10:00 AM CDT): Completed 2022 influenza and COVID-19 vaccination updates. RSV recommended. Assessment & Plan (08/09/2021 11:32 AM CDT): Reviewed symptoms concerning for COVID-19, general recommended precautions and hygiene policies, and specific instructions regarding contacting transplant clinic should develop symptoms concerning for COVID-19 to arrange testing. Discussed post COVID-19 vaccine recommendations. Recommended to obtain annual influenza vaccine. Assessment & Plan (08/11/2020 11:02 PM CDT): Reviewed symptoms concerning for COVID-19, general recommended precautions and hygiene policies, and specific instructions regarding contacting transplant clinic should develop symptoms concerning for COVID-19 to arrange testing. Recommended to obtain annual influenza vaccine. Status post transcatheter ao rtic valve replacement (TAVR) using bioprosthesis 12/31/2018 Nonrheumatic aortic valve stenosis 12/19/2018 Overview (12/22/2018): Added automatically from request for surgery [id number] Metabolic alkalosis 12/06/2018 Assessment & Plan (12/11/2018 6:22 PM COAT PADDER): Contraction from diuresis. Stable. Moderate dose of diuretics may be necessary and acceptable. Monitor daily serum bicarbonate. Aortic stenosis 12/05/2018 Assessment & Plan (12/07/2018 10:26 AM COAT PADDER): Cardiology management. Atrial fibrillation 12/04/2018 Assessment & Plan (12/07/2018 10:27 AM COAT PADDER): Cardiology management. Rate control may not be effective in the setting of hypotension. On systemic anticoagulation. BK viruria 11/27/2018 Assessment & Plan (11/27/2018 5:08 PM COAT PADDER): Low grade BK viruria with no viremia. Continue to monitor. Anemia 11/27/2018 Assessment & Plan (12/09/2018 8:22 PM COAT PADDER): Stable. Below goal hemoglobin 10-11 g/dL, transfuse prn < 7 g/dL. Monitor daily. No role for recombinant erythropoietin in this acute setting. Assessment & Plan (11/27/2018 5:09 PM COAT PADDER): Low MCV, so likely iron deficient. Check iron studies with next lab draw locally and discuss with Medical Oncologist re treatment/further w/up. Thrombocytosis after splenectomy 11/27/2018 Assessment & Plan (11/27/2018 5:11 PM COAT PADDER): Likely has thrombocytosis due to splenectomy with exaggerated response to stressors. Continue aspirin. Recommended to discuss with Medical Oncologist re any w/up and/or treatment. Administration of long-term prophylactic antibio tics 09/08/2018 Assessment & Plan (07/09/2025 9:26 AM CDT): Continue SMZ/TMP M/W/F. Assessment & Plan (07/16/2024 4:52 PM CDT): Continue SMZ/TMP M/W/F. Assessment & Plan (07/31/2023 9:59 AM CDT): Continue SMZ/TMP M/W/F. Assessment & Plan (10/05/2022 11:44 AM COAT PADDER): Continue SMZ/TMP M/W/F. Assessment & Plan (08/09/2021 11:29 AM CDT): Continue SMZ/TMP M/W/F. Assessment & Plan (08/11/2020 11:00 PM CDT): Continue SMZ/TMP M/W/F. Assessment & Plan (07/29/2019 11:12 AM CDT): Continue SMZ/TMP M/W/F. Assessment & Plan (03/02/2019 1:28 PM CDT): Continue SMZ/TMP M/W/F. Assessment & Plan (12/31/2018 9:38 AM COAT PADDER): Continue SMZ/TMP M/W/F. Assessment & Plan (12/20/2018 4:25 PM COAT PADDER): Continue bactrim MWF for PJP prophylaxis Assessment & Plan (12/01/2018 5:32 PM COAT PADDER): Continue SMZ/TMP M/W/F. Assessment & Plan (11/04/2018 3:32 PM COAT PADDER): Continue Bactrim Saturday for prophylaxis Assessment & Plan (09/08/2018 1:19 PM COAT PADDER): Continue SMZ/TMP M/W/F. History of partial pancreatectomy 09/08/2018 Immunosuppression due to drug therapy 08/06/2018 Assessment & Plan (07/09/2025 9:26 AM CDT): Immunosuppressive drug therapy requiring intensive monitoring for toxicity, rejection, opportunistic infection, and malignancies. Frequent dose adjustments based on laboratory monitoring due to narrow therapeutic range. Ongoing medical care related to complex condition. Chronic illness with severe side effects of treatment. Metabolic complications. Complicated by pancreatic adenocarcinoma. Continue everolimus 1.5 mg BID and mycophenolate sodium 360 mg BID Monitor everolimus (goal 5-8 ng/mL) and mycophenolic acid (goal 1.5-2.5 mcg/mL) trough levels.. Assessment & Plan (07/16/2024 4:52 PM CDT): Immunosuppressive drug therapy requiring intensive monitoring for toxicity, rejection, opportunistic infection, and malignancies. Frequent dose adjustments based on laboratory monitoring due to narrow therapeutic range. Ongoing medical care related to complex condition. Chronic illness with severe side effects of treatment. Metabolic complications. Complicated by pancreatic adenocarcinoma. Continue everolimus and mycophenolate sodium. Monitor everolimus (goal 6-8 ng/mL) and mycophenolic acid (goal 1.5-2.5 mcg/mL) trough levels. Assessment & Plan (07/31/2023 9:58 AM CDT): Immunosuppressive drug therapy requiring intensive monitoring for toxicity, rejection, opportunistic infection, and malignancies. Frequent dose adjustments based on laboratory monitoring due to narrow therapeutic range. Chronic illness with severe side effects of treatment. Metabolic complications. Complicated by pancreatic adenocarcinoma. Continue everolimus and mycophenolate sodium. Monitor everolimus (goal 6-8 ng/mL) and mycophenolic acid (goal 1.5-2.5 mcg/mL) trough levels. Assessment & Plan (10/05/2022 11:43 AM COAT PADDER): Immunosuppressive drug therapy requiring intensive monitoring for toxicity, rejection, opportunistic infection, and malignancies. Frequent dose adjustments based on laboratory monitoring due to narrow therapeutic range. Chronic illness with severe side effects of treatment. Metabolic complications. Complicated by pancreatic adenocarcinoma. Continue everolimus and mycophenolate sodium. Monitor everolimus (goal 6-8 ng/mL) and mycophenolic acid (goal 2-4 mcg/mL) trough levels. Assessment & Plan (08/09/2021 11:29 AM CDT): Immunosuppressive drug therapy requiring intensive monitoring for toxicity, rejection, opportunistic infection, and malignancies. Frequent dose adjustments based on laboratory monitoring due to narrow therapeutic range. Chronic illness with severe side effects of treatment. Metabolic complications. Complicated by pancreatic adenocarcinoma. Continue everolimus and mycophenolate sodium. Monitor everolimus (goal 6-10 ng/mL) and MPA (goal 2-4 mcg/mL) trough levels. Assessment & Plan (08/11/2020 11:00 PM CDT): Immunosuppressive drug therapy requiring intensive monitoring for toxicity, rejection, opportunistic infection, and malignancies. Frequent dose adjustments based on laboratory monitoring due to narrow therapeutic range. Metabolic complications. Complicated by pancreatic adenocarcinoma. Continue everolimus and mycophenolate sodium. Monitor everolimus (goal 6-10 ng/mL) and MPA (goal 2-4 mcg/mL) trough levels. Assessment & Plan (07/29/2019 11:12 AM CDT): Continue everolimus/MPA. Monitor everolimus (goal 6-10) and MPA (goal 2-4) trough levels. Assessment & Plan (03/02/2019 1:28 PM CDT): Continue FK/MMF. Monitor FK (goal 4-6) and MPA (goal 1-2) trough levels. Assessment & Plan (12/31/2018 9:38 AM COAT PADDER): Continue FK/MPA. Plan conversion back to everolimus once adequate recovery from TAVR. Monitor FK (goal 3-5) and MPA (goal 1.5-2.5) trough levels. Assessment & Plan (12/20/2018 4:24 PM COAT PADDER): Continue tacrolimus (low goal up to 3), myfortic 360 mg bid. Check tacrolimus trough levels. Assessment & Plan (12/10/2018 7:40 PM COAT PADDER): Continue FK/MPA. Consider conversion to sirolimus now recovered from surgery, once medically stable. Monitor daily FK (essentially at goal 4-6) and MPA (at goal 1.5-2.5) trough levels. Assessment & Plan (11/27/2018 5:07 PM COAT PADDER): Converted off everolimus to tacrolimus at the time of Whipples procedure. Continue MPA/FK. Monitor FK (goal 3-5) and MPA (goal 1.5-2.5) trough levels. Review possible conversion back to EVL in 6 months. Assessment & Plan (11/05/2018 5:14 PM COAT PADDER): Continue tacrolimus 1 mg twice daily with goal of 5-7 ng/mL for a 12-hour trough level. Continue mycophenolate sodium 360 mg twice daily Prednisone was recently stopped after surgery. Given new orthostatic symptoms could consider repeat cortisol stimulation testing Assessment & Plan (09/08/2018 1:18 PM COAT PADDER): Converted to FK/MMF/low dose prednisone regimen. Minimize maintenance immunosuppression as much as feasible given pancreatic adenocarcinoma. Monitor once weekly FK (goal 4-6) and MPA (goal 1.5-2.5). Consider further reduction of prednisone down to 2.5 daily. Assessment & Plan (08/07/2018 5:54 PM CDT): Convert off everolimus to tacrolimus. Continue MPA/prednisone. Monitor FK (goal 3-5) and MPA (goal 1.5-2.5) trough levels. Adenocarcinoma of pancreas 07/16/2018 Cancer Staging:Pathologic stage from 08/04/2018:Stage IB(pT2, pN0, cM0) - Signed by Treva Edwards MD on 10/05/2018 Clinical: Unsigned Assessment & Plan (07/09/2025 9:26 AM CDT): Remains in remission. Stage 1b. Completed primary chemotherapy course. Continue active surveillance imaging. Assessment & Plan (07/16/2024 4:51 PM CDT): Remains in remission. Stage 1b. Completed primary chemotherapy course. Continue active surveillance imaging. Assessment & Plan (07/31/2023 9:59 AM CDT): Remains in remission at 5 years. Stage 1b. Completed primary chemotherapy course. Continue follow up surveillance imaging. Assessment & Plan (08/09/2021 11:30 AM CDT): Remains in remission. Stage 1b. Completed primary chemotherapy course. Continue follow up surveillance imaging. Assessment & Plan (08/11/2020 11:01 PM CDT): In remission. Stage 1b. Completed primary chemotherapy course. Scheduled for 6- month follow up imaging in the coming weeks. Assessment & Plan (07/29/2019 11:14 AM CDT): In remission. Completed primary chemotherapy course. Scheduled for 3-month follow up imaging in the coming weeks. Assessment & Plan (03/02/2019 1:29 PM CDT): Continue follow up with outside oncologist. On primary chemotherapy course. Assessment & Plan (12/31/2018 9:42 AM COAT PADDER): s/p Whipple procedure and splenectomy 08/2018 on adjuvant chemotherapy, which will be restarted soon. Plan conversion of FK back to everolimus once recovered from TAVR. Assessment & Plan (11/27/2018 5:12 PM COAT PADDER): s/p Whipple procedure and splenectomy in 08/2018. Now having chemotherapy. Assessment & Plan (09/08/2018 1:19 PM COAT PADDER): Pending pathology. Pancreatic duct dilated 07/02/2018 Overview (07/02/2018): Added automatically from request for surgery [id number] Vision loss of right eye 01/27/2018 Hypertension, essential 01/27/2018 Assessment & Plan (08/11/2020 11:02 PM CDT): Goal < 130/80, continue present regimen. Candidate for ACEi/ARB if blood pressure worsens. Assessment & Plan (12/31/2018 9:40 AM COAT PADDER): At goal < 130/80, continue present regimen. Assessment & Plan (12/11/2018 6:22 PM COAT PADDER): Maintain SBP > 100 if possible from a kidney standpoint to maximize recovery, presently at goal. Assessment & Plan (09/08/2018 1:19 PM COAT PADDER): At goal < 140/90, presently off therapy. Assessment & Plan (08/07/2018 5:57 PM CDT): At goal < 140/90, continue present regimen. Peripheral neuropathy 01/27/2018 Vitreous hemorrhage of right eye 01/27/2018 Chronic kidney disease, stage 3a 08/02/2015 Assessment & Plan (12/31/2018 9:39 AM COAT PADDER): Monitor calcium, phosphorus, PTH, vitamin D, and anemia labs. Assessment & Plan (12/01/2018 5:31 PM COAT PADDER): Outpatient monitoring of calcium, phosphorus, PTH, 25-OH vit D, and anemia. Assessment & Plan (09/08/2018 1:19 PM COAT PADDER): Stable. Outpatient monitoring of calcium, phosphorus, PTH, vitamin D, and anemia. Kidney transplant 01/02/2008 01/02/2008 Assessment & Plan (07/13/2025 1:02 PM CDT): SLK. With chronic kidney disease stage 3a, stable. History multiple episodes of acute kidney failure in distant past. Complicated by pancreatic cancer. Monitor serum creatinine, proteinuria, and BK viral load screening. Elevated serum creatinine may associated starting SGLT2 inhibitor, if continues to rise, may need kidney biopsy. Assessment & Plan (07/16/2024 4:51 PM CDT): SLK. With chronic kidney disease stage 3a, stable. History multiple episodes of acute kidney failure in distant past. Complicated by pancreatic cancer. Monitor serum creatinine, proteinuria, and BK viral load screening. Assessment & Plan (07/31/2023 9:58 AM CDT): SLK. With chronic kidney disease stage 3a, stable. History multiple episodes of acute kidney failure in distant past. Complicated by pancreatic cancer. Monitor serum creatinine, proteinuria, and BK viral load screening. Assessment & Plan (10/05/2022 11:43 AM COAT PADDER): SLK. With chronic kidney disease stage 3a, stable. History multiple episodes of acute kidney failure in distant past. Monitor serum creatinine, proteinuria, and BK viral load screening. Assessment & Plan (08/09/2021 11:28 AM CDT): SLK. With chronic kidney disease stage 3a, relatively stable over the last year. History multiple episodes of acute kidney failure. Monitor serum creatinine, proteinuria, and BK viral load screening. Assessment & Plan (08/11/2020 10:59 PM CDT): SLK. With chronic kidney disease stage 3, relatively stable over the last year. Multiple episodes of acute kidney failure. Monitor serum creatinine, proteinuria. Reduce BK viral load screening frequency. Assessment & Plan (07/29/2019 11:12 AM CDT): SLK. With chronic kidney disease stage 3. Now with acute kidney failure, in evaluation. Monitor serum creatinine, proteinuria, and BK viral load screening. Assessment & Plan (03/02/2019 1:27 PM CDT): With MICHELLE. Monitor serum creatinine, proteinuria, and BK viral load screening. Assessment & Plan (12/31/2018 9:37 AM COAT PADDER): Acute kidney failure resolved, back to baseline good function. Monitor serum creatinine, proteinuria, and BK viral load screening. Assessment & Plan (12/23/2018 5:48 PM COAT PADDER): Status post remote renal transplant - baseline renal function around 1.3 mg/dl - currently close to baseline Received IVF post contrast exposure, Assessment & Plan (12/01/2018 5:30 PM COAT PADDER): s/p SLK. With chronic kidney disease stage 3. Monitor daily serum creatinine. Assessment & Plan (11/27/2018 5:05 PM COAT PADDER): S/p SLT transplant. Good allograft function. Monitor serum creatinine, proteinuria, and BK viral load screening. Assessment & Plan (11/04/2018 3:31 PM COAT PADDER): Status post remote donor renal transplant simultaneous liver transplant 10 years ago. Mild acute kidney injury last week but now returned to baseline at 1.1 mg/dL. Continue to monitor renal function while in house Assessment & Plan (09/08/2018 1:17 PM COAT PADDER): Stable function after conversion to tacrolimus. Monitor serum creatinine, proteinuria, and BK viral load screening. Assessment & Plan (08/07/2018 5:54 PM CDT): Good allograft function. Monitor serum creatinine, proteinuria, and BK viral load screening. Liver transplant 01/02/2008 01/02/2008 Assessment & Plan (07/15/2024 2:20 PM CDT): Doing well overall. Recently moved to [place], [place]. Liver tests are normal. Following with Dr. Gallegos for kidney transplant. Following with cardiology, recently started statin for elevated cholesterol. 6 years from pancreatic cancer. Following with oncologist at [facility]. Follow up CT scheduled. Plan: Continue current immunosuppression Labs every month, recheck lipid panel at next labs CT Cardiac Calcium score with upcoming CT scan Assessment & Plan (07/31/2023 1:43 PM CDT): Missael alas 15 years ago. Now COVID ( from grandchild). Liver tests are normal. MILD CKD, Five years from pancreatic cancer. Continue immunosuppression. Assessment & Plan (09/05/2022 1:14 PM CDT): Post liver transplant : normal function. CKD post kidney transplant Immunosuppression: same No CAD Recent eye sight loss ( stroke) . Neck arteries: <50% Assessment & Plan (08/10/2020 2:01 PM CDT): Normal liver function. Spoke to Dr Gallegos: will keep same immunosuppression. Next year colonoscopy. Blood work per protocol. Needs statin , local physician to prescribe. Rosuvastatin/Atorvastatin. Follow liver tests/ Assessment & Plan (03/02/2019 1:28 PM CDT): Continue follow up with Hepatology. Monitor LFTs. Assessment & Plan (09/08/2018 1:17 PM COAT PADDER): Continue follow up with Hepatology. Monitor liver transaminases. Type II diabetes mellitus with complication 04/2008 Assessment & Plan (07/13/2025 1:03 PM CDT): Uncontrolled. Reinforced importance of good glycemic control. Continue follow up with director investment banking, started on SGLT2 inhibitor. Monitor fasting glucose and A1C. Assessment & Plan (07/16/2024 4:52 PM CDT): Uncontrolled. Reinforced importance of good glycemic control. Continue follow up with director investment banking, to discuss SGLT2 inhibitors and GLP-1 agonists. Monitor fasting glucose and A1C. Assessment & Plan (07/31/2023 9:59 AM CDT): Uncontrolled. Reinforced importance of good glycemic control. Continue follow up with director investment banking, to discuss SGLT2 inhibitors and GLP-1 agonists. Monitor fasting glucose and A1C. Assessment & Plan (10/05/2022 11:45 AM COAT PADDER): Uncontrolled. Reinforced importance of good glycemic control. Continue follow up with director investment banking. Monitor fasting glucose and A1C. Assessment & Plan (08/09/2021 11:32 AM CDT): Continue follow up with director investment banking. Monitor fingerstick and fasting glucose, and A1C. Assessment & Plan (08/11/2020 11:01 PM CDT): Uncontrolled. Recommended to increase insulin dose, follow up with PCP/director investment banking. Monitor fingerstick and fasting glucose, and A1C. Assessment & Plan (07/31/2019 10:59 AM CDT): Recommended to increase insulin dose, follow up with PCP/director investment banking. Monitor fingerstick and fasting glucose, and A1C. Assessment & Plan (12/31/2018 9:41 AM COAT PADDER): Reinforced importance of improved glycemic control, patient is scheduled to see his director investment banking. Continue present regimen. Monitor fingerstick and fasting glucose, and A1C. Assessment & Plan (12/01/2018 5:33 PM COAT PADDER): Endocrinology consultation. Monitor fingerstick glucose and cover with ISS. Assessment & Plan (09/08/2018 1:20 PM COAT PADDER): Controlled. Resume outpatient monitoring by director investment banking. Continue insulin regimen. Monitor fingerstick and fasting glucose, and A1C. Assessment & Plan (08/07/2018 5:56 PM CDT): Likely worsening glycemic control with conversion to FK. Continue insulin regimen. Monitor fingerstick and fasting glucose, and A1C. Resolved Problems Problem Noted Date Diagnosed Date Resolved Date Paroxysmal atrial fibrillation 12/10/2018 12/18/2018 Pancreatic adenocarcinoma 07/14/2018 Assessment & Plan (08/07/2018 5:55 PM CDT): Delay Whipple procedure after successful conversion to FK. Assessment & Plan (07/14/2018 4:16 PM CDT): - Needs CT chest - Needs pancreatic protocol CT with contrast. Talked with Dr. Gallegos: okay to use contrast, but will need 1L IVFs before and after scan - Needs to see ID this week for immunizations due to splenectomy, either Dr. Perry or Dr. Pagan. - Needs to be seen in pre-op clinic Patient seen with Dr. Rubio Encounters Date Type Department Care Team Description 07/14/2025 Results Follow-Up [facility] Transplant Surgery [address] [facility] [place] [address] Joycelyn Quintero RN 07/13/2025 7:00 AM CDT Ancillary Procedure [facility] [address] [place] [address] Cathleen Gallegos MD Immunosuppression due to drug therapy; Administration of long-term prophylactic antibiotics; Type II diabetes mellitus with complication (CMS-HCC); Kidney replaced by transplant; 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); Protein screening; Encounter for monitoring immunomodulating therapy; Kidney transplant 01/02/2008 07/13/2025 Telephone [facility] [address] [facility] [place] [address] Karen Cannon Appointment 07/12/2025 1:00 PM CDT Office Visit [facility] [address] [facility] [place] [address] Onelia Alamo, BRAKE OPERATOR SHEET METAL, ALMOND HULLER 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) (Primary Dx); Immunosuppression; Administration of long-term prophylactic antibiotics; intermediate accountant (current) use of systemic steroids; Type II diabetes mellitus with complication (CMS-HCC); Kidney transplant 01/02/2008; Hypertension, essential 07/12/2025 10:40 AM CDT Office Visit [facility] [address] [facility] [place] [address] Cathleen Gallegos MD 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); Kidney transplant 01/02/2008; Administration of long-term prophylactic antibiotics; Adenocarcinoma of pancreas (CMS-HCC); Type II diabetes mellitus with complication (CMS-HCC); Kidney replaced by transplant; 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); Protein screening; Encounter for monitoring immunomodulating therapy; Liver transplant 01/02/2008; Hypertriglyceridemia 07/12/2025 Orders Only [facility] [address] [facility] [place] [address] Cathleen Gallegos MD 06/22/2025 Orders Only [facility] [address] [facility] [place] [address] Noe Keyes MD 06/14/2025 Orders Only [facility] [address] [facility] [place] [address] Cathleen Gallegos MD 05/27/2025 Orders Only [facility] [address] [facility] [place] [address] Noe Keyes MD 05/17/2025 Orders Only [facility] [address] [place] [address] Cathleen Gallegos MD 05/10/2025 Orders Only [facility] [address] [facility] [place] [address] Colleen Christy from Last 3 Months Immunizations Immunization Administration Dates Next Due HiB PRP-T 07/21/2018,07/21/2018 Influenza (Intramuscular) 36 MOS+ 08/07/2017,,08/04/2008 Influenza (Quad) PF 0.5 mL IM 08/04/2020 ,08/20/2019,09/15/2018,08/02 Influenza (Recombinant/Quad- cell Cx/Abx-free) IM PF 08/04/2020 Influenza (Trival) IM w/preservative 09/03/2014, 09/10/2013,09/07/2012 Influenza (Trival) Im Preservative-free 07/25/2016 Influenza (live, nasal) Trivalent 08/07/2017,11/2007 Influenza virus vaccine, uns pecified formulation 09/15/2018,07/25/2016,08/02/2015,09/03,09/10/2013,09/07/2012 MenB-Bexsero 09/15/2018,07/21/2018 Meningococcal Conjugate 09/15/2018,07/21/2018 Pneumococcal Conjugate Vacci ne PCV13 (Prevnar 13) 07/21/2018,08/04/2008 Pneumococcal Polysaccharide Vaccine PPSV23 (Pneumovax 23) 10/03/2018,08/07/2017,08/04/2008 Family History Medical History Relation Name Comments Cancer Father Coronary Artery Bypass Graft Father Diabetes Father Other Cancer Father Breast Cancer Mother Relation Name Status Comments Father Mother Social History Tobacco Use Types Packs/Day Years Used Date Smoking Tobacco: Former Cigarettes 2 30 1 982 - 2011 Smokeless Tobacco: Never Tobacco Cessation:Counseling Given: No Alcohol Use Standard Drinks/Week Comments No 0 (1 standard drink = 0.6 oz pur e alcohol) Sex and Gender Information Value Date Recorded Sex Assigned at Not on file Legal Sex Male 6:30 PM CDT Gender Identity Not on file Sexual Orientation Not on file Last Filed Vital Signs Vital Sign Reading Time Taken Comments Blood Pressure 107/61 07/12/2025 10:41 AM CDT Pulse 70 07/12/2025 10:41 AM CDT Temperature 37.1 C (98.7 F) 07/12/2025 10:41 AM CDT Respiratory Rate 16 07/12/2025 10:4 1 AM CDT Oxygen Saturation 97% 07/12/2025 10: 41 AM CDT Inhaled Oxygen Concentration - - Weight 99.4 kg (219 lb 3.2 oz) 07/12/2025 10:41 AM CDT = Height 195.6 cm (6' 5) 07/12/2025 10:4 1 AM CDT Self-reported height because pt unable to tolerate standing on scale for too long due to injury Body Mass Index 25.99 07/12/2025 10:41 AM CDT Plan of Treatment Upcoming Encounters Date Type Department Care Team (Late st Contact Info) Description 07/15/2026 1:00 PM CDT Office Visit [facility] [address] [facility] [place] [address] Apt confirmed- Health Maintenance Due Date Last Done Comments FOOT EXAM 1978 Colonoscopy Unknown Frequency 10/23/2015 10/23/2010, 10/23/2010 MENINGOCOCCAL B (MENB) (3 of 4 - Increased Risk Bexsero 3-dose series) 09/15/2019 09/15/2018, 09/15/2018, 07/21/2018, Additional history exists OPHTHALMOLOGY EXAM 08/15/2023 08/15/2022, 1 , 08/15/2022 ADDRESS PSA 09/11/2024 09/11/2022, 12/02/2021, 06/22/2020, Additional history exists Urine Albumin Creatinine Ratio 02/13/2025 0 02/14/2024, 03/23/2015, 01/26/2015, Additional history exists COVID-19 VACCINE (7 - Modern a risk season) 2025 09/07/2024, 07/23/2023, 08/23/2022, Additional history exists INFLUENZA (#1) 2025 09/07/2024, 07/05, 08/23/2022, Additional history exists Lung Screening Annual Low Dose CT 08/11/2025 08/11/2024, 07/16/2023, 08/20/2022, Additional history exists HEMOGLOBIN A1C 01/10/2026 07/13/2025, 07/0 06/2025, 04/01/2025, Additional history exists eGFR 07/13/2026 07/13/2025 LIPID TESTING 07/13/2030 07/13/2025, 03/05, 05/25/2024, Additional history exists DTAP/TDAP/TD (2 - Td or Tdap) 05/11/2035 05/11/2025 HEPATITIS C SCREENING Completed 01/01/2008, 008 HIV SCREENING Completed 01/01/2008, 12/11/2007 DATE OF LAST IDENTIFIED COLONOSCOPY Completed 10/23/2010 ZOSTER Completed 03/19/2022, 12/09/2021 Pneumococcal 50+ Completed 05/11/2025, , 07/21/2018, Additional history exists Medical Devices Implanted Type Area Assembler Flexible Leads Device Identifier Shelf Expiration Date Model / Serial / Lot Poly 3 Transcatheter Aortic Valve 29mm - [id number] - [id number] Implanted:Qty: 1 on 12/25/2018 by Aldo Bronson MD at [facility] TRANSCATHETER AORTIC VALVE REPL (TAVR) AORTIC VALVE [employer]et [email or web address] 09/17/2020 [id number] / [id number] / Procedures Procedure Name Priority Date/Time Associated Diagnosis Comments MYCOPHENOLIC ACID Routine 07/13/2025 6:5 7 AM CDT Kidney transplant 01/02/2008 BK VIRUS QUANT VIRAL LOAD, URINE Routine 07/13/2025 6:57 AM CDT Immunosuppression due to drug therapy Administration of long-term prophylactic antibiotics Type II diabetes mellitus with complication (CMS-HCC) 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) Protein screening Encounter for monitoring immunomodulating therapy BK VIRUS DNA QUANT PCR, BLOOD Routine 07/13/2025 6:57 AM CDT Immunosuppression due to drug therapy Administration of long-term prophylactic antibiotics Type II diabetes mellitus with complication (CMS-HCC) 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) Protein screening Encounter for monitoring immunomodulating therapy HEMOGLOBIN A1C Routine 07/13/2025 6:57 AM CDT Immunosuppression due to drug therapy Administration of long-term prophylactic antibiotics Type II diabetes mellitus with complication (CMS-HCC) 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) Protein screening Encounter for monitoring immunomodulating therapy LIPID PANEL (AMA) W/LDL CALC Routine 07/13/2025 6:57 AM CDT Immunosuppression due to drug therapy Administration of long-term prophylactic antibiotics Type II diabetes mellitus with complication (CMS-HCC) 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) Protein screening Encounter for monitoring immunomodulating therapy URINALYSIS WITH MICROSCOPIC Routine 07/13/2025 6:57 AM CDT Immunosuppression due to drug therapy Administration of long-term prophylactic antibiotics Type II diabetes mellitus with complication (CMS-HCC) 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) Protein screening Encounter for monitoring immunomodulating therapy PROTEIN/CREAT RATIO, RANDOM URINE Routine 07/13/2025 6:57 AM CDT Immunosuppression due to drug therapy Administration of long-term prophylactic antibiotics Type II diabetes mellitus with complication (CMS-HCC) 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) Protein screening Encounter for monitoring immunomodulating therapy EVEROLIMUS, LC/MS Routine 07/13/2025 6:5 7 AM CDT Immunosuppression due to drug therapy Administration of long-term prophylactic antibiotics Type II diabetes mellitus with complication (CMS-HCC) 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) Protein screening Encounter for monitoring immunomodulating therapy COMPREHENSIVE METABOLIC PANEL Routine 07/13/2025 6:57 AM CDT Immunosuppression due to drug therapy Administration of long-term prophylactic antibiotics Type II diabetes mellitus with complication (CMS-HCC) 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) Protein screening Encounter for monitoring immunomodulating therapy CBC AND DIFFERENTIAL Routine 07/13/2025 6:57 AM CDT Immunosuppression due to drug therapy Administration of long-term prophylactic antibiotics Type II diabetes mellitus with complication (CMS-HCC) 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) Protein screening Encounter for monitoring immunomodulating therapy EVEROLIMUS, LC/MS Routine 06/22/2025 8:0 4 AM CDT URINALYSIS WITH MICROSCOPIC Routine 06/22/2025 8:04 AM CDT CBC AND DIFFERENTIAL Routine 06/22/2025 8:04 AM CDT PROTEIN/CREAT RATIO, RANDOM URINE Routine 06/22/2025 8:04 AM CDT COMPREHENSIVE METABOLIC PANEL Routine 06/22/2025 8:04 AM CDT EVEROLIMUS, LC/MS Routine 05/27/2025 7:4 2 AM CDT URINALYSIS WITH MICROSCOPIC Routine 05/27/2025 7:42 AM CDT PROTEIN/CREAT RATIO, RANDOM URINE Routine 05/27/2025 7:42 AM CDT COMPREHENSIVE METABOLIC PANEL Routine 05/27/2025 7:42 AM CDT CBC AND DIFFERENTIAL Routine 05/27/2025 7:[address] CHEST WO CONTRAST Routine 11/30/2018 5:53 PM COAT PADDER OTTR HISTORICAL LAB Routine 03/23/2015 5 :31 AM CDT HIV 1 \T\ 2 ANTIBODY STAT 01/01/2008 2:50 PM COAT PADDER HEPATITIS C ANTIBODY (WITHOUT CONFIRMATION) STAT 01/01/2008 2:50 PM COAT PADDER PSA, TOTAL (SCREENING ONLY) Routine 12/11/2007 12:00 PM COAT PADDER from Last 3 Months or Most Recently Relevant to Health Maintenance Results * (ABNORMAL) BK Virus Quant Viral Load, Urine (07/13/2025 6:57 AM CDT) Pathologist [facility] BKV, urine Detected (A) Not Detected 07/14/2025 4:11 PM CDT [facility] BKV Target 14,400.0 0 IU/mL 07/14/2025 4:11 PM CDT [facility] Comment:The BK Virus (BKV) Q uantitative PCR, Urine assay is approved by the Food and Drug Administration (FDA) for urine using the tierra(TM) 8800 system, and its performance characteristics have been verified by the [facility]. The assay detects BKV DNA using dual targets for highly conserved sequences within the BKV small t-antigen and BKV VP2 regions to identify, but not differentiate, Subtypes I (Subgroups Ia, Ib, and Ic), II, III, and IV. The amount of amplified product is compared to known BKV standards with a linear range for the assay from 200 IU/mL to 100,000,000 IU/mL. Values outside the linear range cannot be quantified. For patients that have been tracked by copies/mL in urine, quantitative values in IU/mL will be approximately 5-fold more than corresponding copies/mL at values less than 10^6 IU/mL. Urine VOIDED URINE SPECIMEN / Unknown Non-blood Collection / Unknown 07/13/2025 6:57 AM CDT 07/13/2025 7:49 AM CDT us Cathleen Gallegos MD URINE ORDERABLES Final Result [facility] A[address] [place] [address] * Everolimus, LC/MS (07/13/2025 6:57 AM CDT) Only the most recent of3 resultswithin the time period is included. Pathologist [facility] Everolimus, LC/MS 5.5 ng/mL 025 3:46 PM CDT [facility] Comment: Unable to flag abnormal result(s), please refer to reference range(s) below: Trough: 3.0 - 8.0 ng/mL for Transplantation Trough: 5.0 - 10.0 ng/mL for Oncology/Neurology Symptoms of toxicity are more likely to occur at trough levels exceeding 12.0 ng/mL. This test was developed and its analytical performance characteristics have been determined by [facility]. It has not been cleared or approved by the FDA. This assay has been validated pursuant to the CLIA regulations and is used for clinical purposes. Blood VEIN SPECIMEN / Unknown Blood Collection / Unknown 07/13/2025 6:57 AM CDT 07/13/2025 7:15 AM CDT Narrative [facility] - 07/14/2025 3:46 PM CDT Performing Organization Information: Site ID: [id number] Name: [facility] Address: [address] [place] [id number] Director: Sander Domínguez us Cathleen Gallegos MD LAB SEND OUT ORDERABLES Final Re sult [facility] [address] [place] [id number] * Mycophenolic Acid (07/13/2025 6:57 AM CDT) [facility] Mycophenolic Acid, IA 2.0 2.0 - 4.0 g/mL 07/13/2025 8:10 AM CDT [facility] Comment: Therapeutic range applies to trough level. Optimal ranges depend upon transplant type and co-administered drugs, as well as the patient's clinical state. The test method is an automated enzymatic immunoassay performed on the SurfAir platform. Blood VEIN SPECIMEN / Unknown Blood Collection / Unknown 07/13/2025 6:57 AM CDT 07/13/2025 7:13 AM CDT us Cathleen Gallegos MD CHEMISTRY ORDERABLES Final Resul t Performing Organization Address City/[facility]/ZIP Co de Phone Number [facility] [address] [place] [address] [place] [phone] * Protein/Creatinine Ratio, Urine (07/13/2025 6:57 AM CDT) Only the most recent of3 resultswithin the time period is included. Creatinine, Urine 71.8 mg/dL 07/13/2025 8:36 AM CDT [facility] Protein, Urine 10 0 - 10 mg/dL 07/13/2025 8:36 AM CDT [facility] Protein/Creati nine Ratio, Urine 0.14 mg/mg 07/13/2025 8:36 AM CDT [facility] Urine VOIDED URINE SPECIMEN / Unknown Non-blood Collection / Unknown 07/13/2025 6:57 AM CDT 07/13/2025 7:47 AM CDT Cathleen Gallegos MD URINE ORDERABLES Final Result Performing Organization Address [facility] Co de Phone Number [facility] [address] [place] [address] [place] [phone] * BK Virus DNA Quant PCR, Blood (07/13/2025 6:57 AM CDT) BKV, Blood Not Detected Not Detected 07/13/2025 6:29 PM CDT [facility] BKV Target 07/13/2025 6:29 PM CDT [facility] Comment:The BK Virus (BKV) Q uantitative PCR, Blood assay is approved by the Food and Drug Administration (FDA) for EDTA plasma using the tierra(TM) 8800 system, and its performance characteristics have been verified by the [facility]. The assay detects BKV DNA using dual targets for highly conserved sequences within the BKV small t-antigen and BKV VP2 regions to identify, but not differentiate, Subtypes I (Subgroups Ia, Ib, and Ic), II, III, and IV. The amount of amplified product is compared to known BKV standards with a linear range for the assay from 21.5 IU/mL to 100,000,000 IU/mL. Values outside the linear range cannot be quantified. For patients that have been tracked by copies/mL in plasma, quantitative values in IU/mL will be approximately 5-fold less than corresponding copies/mL. Blood VEIN SPECIMEN / Unknown Blood Collection / Unknown 07/13/2025 6:57 AM CDT 07/13/2025 7:13 AM CDT us Cathleen Gallegos MD IMMUNOLOGY ORDERABLES Final Resu lt [facility] [address] [place] [address] * (ABNORMAL) Urinalysis with Microscopic (07/13/2025 6:57 AM CDT) Only the most recent of3 resultswithin the time period is included. Color, Urine Light Yellow 07/13/2025 7:59 AM CDT [facility] Appearance, Urine Clear 07/13/2025 7:59 AM T [facility] Specific [place], Urine 1.012 1.005 - 1.030 07/13/2025 7:59 AM T [facility] pH, Urine 6.0 5.0 - 7.0 07/13/2025 7:59 AM T [facility] Protein, UA Negative Negative, 10 , 20 mg/dL 07/13/2025 7:59 AM T [facility] Glucose, Urine >1000(A) Normal mg/dL 07/13/2025 7:59 AM T [facility] Ketones, Urine Negative Negative mg/dL 07/13/2025 7:59 AM T [facility] Bilirubin, Urine Negative Negative 07/13/2025 7:59 AM T [facility] Blood, Urine Negative Negative 07/13/2025 7:59 AM T [facility] Nitrite, Urine Negative Negative 07/13/2025 7:59 AM T [facility] Leukocyte Esterase, Urine Negative Negative Yonathan/uL 07/13/2025 7:59 AM T [facility] Urobilinogen, Urine Normal Normal mg/dL 07/13/2025 7:59 AM T [facility] RBC, Urine 0-2 0 - 2 /hpf 07/13/2025 7:59 AM CDT [facility] WBC, Urine 0-5 0 - 5 /hpf 07/13/2025 7:59 AM CDT [facility] Bacteria, Urine None /hpf 07/13/2025 7:59 AM CDT [facility] Squamous Epithelial Cells, Urine None /hpf 07/13/2025 7:59 AM CDT [facility] Urine VOIDED URINE SPECIMEN / Unknown Non-blood Collection / Unknown 07/13/2025 6:57 AM CDT 07/13/2025 7:41 AM CDT us Cathleen Gallegos MD URINE ORDERABLES Final Result [facility] [address] [place] [address] * (ABNORMAL) CBC with Differential (07/13/2025 6:57 AM CDT) Only the most recent of3 resultswithin the time period is included. WBC 16.9(H) 3.5 - 10.5 10 3/ L 07/13/2025 7:55 AM CDT [facility] RBC 7.03(H) (Based on documented legal sex) 4.30-5.80 10 6/ L 07/13/2025 7:55 AM T [facility] HGB 15.9 (Based on documented legal sex) 13.0-17.5 g/dL 07/13/2025 7:55 AM T [facility] HCT 52.1(H) (Based on documented legal sex) 38.0-50.0 % 07/13/2025 7:55 AM CDT [facility] MCV 74.1(L) 80.0 - 99.0 fL 07/13/2025 7:55 AM CDT [facility] MCH 22.6(L) 27.0 - 34.0 pg 07/13/2025 7:55 AM CDT [facility] MCHC 30.5(L) 32.0 - 35.5 g/dL 07/13/2025 7:55 AM T [facility] RDW 20.3(H) 11.0 - 15.0 % 07/13/2025 7:55 AM [facility] PLT 230 150 - 400 10 3/ L 07/13/2025 7:55 AM [facility] MPV 10.4 8.8 - 12.1 fL 07/13/2025 7:55 AM [facility] NRBC's 0.0 0.0 % 07/13/2025 7:55 AM [facility] Absolute NRBCs 0.0 No reference range established 10 3/ L 07/13/2025 7:55 AM [facility] Neutrophils 58.3 34.0 - 73.0 % 07/13/2025 7:55 AM [facility] Lymphocytes 25.7 15.0 - 50.0 % 07/13/2025 7:55 AM [facility] Monocytes 14.5 1.0 - 15.0 % 07/13/2025 7:55 AM [facility] Eosinophils 0.7 0.0 - 8.0 % 07/13/2025 7:55 AM [facility] Basophils 0.5 0.0 - 2.0 % 07/13/2025 7:55 AM [facility] Immature Granulocytes 0.3 No defined reference range % 07/13/2025 7:55 AM [facility] Comment:Immature Granulocyte s (IG) represents automated enumeration of Metamyelocytes, Myelocytes and Promyelocytes when IG is < 5%. Blasts are not included in IG and reported separately if present. Absolute Neutrophils 9.9(H) 1.5 - 8.0 10 3/ L 07/13/2025 7:55 AM [facility] Absolute Lymphocytes 4.3(H) 1.0 - 4.0 10 3/ L 07/13/2025 7:55 AM [facility] Absolute Monocytes 2.5(H) 0.2 - 1.0 10 3/ L 07/13/2025 7:55 AM [facility] Absolute Eosinophils 0.1 0.0 - 0.6 10 3/ L 07/13/2025 7:55 AM [facility] Absolute Basophils 0.1 0.0 - 0.3 10 3/ L 07/13/2025 7:55 AM [facility] Absolute Immature Granulocytes 0.1 0.00 - 0.10 10 3/ L 07/13/2025 7:55 AM CDT [facility] Blood VEIN SPECIMEN / Unknown Blood Collection / Unknown 07/13/2025 6:57 AM CDT 07/13/2025 7:14 AM CDT Narrative [facility] - 07/13/2025 7:55 AM CDT Reference ranges for nonbinary/intersex or unspecified gender patients have not been established. Please refer to the following table for ranges established for cisgender patients and evaluate in the clinical context of the individual patient: [email or web address] us Cathleen Gallegos MD HEMATOLOGY ORDERABLES Final Resu lt Performing Organization Address [facility] Co de Phone Number [facility] [address] [address] * (ABNORMAL) HEMOGLOBIN A1C (07/13/2025 6:57 AM CDT) Hemoglobin A1c 8.9(H) 4.0 - 5.6 % 07/13/2025 2:44 PM CDT [facility] Blood VEIN SPECIMEN / Unknown Blood Collection / Unknown 07/13/2025 6:57 AM CDT 07/13/2025 7:14 AM CDT us Cathleen Gallegos MD CHEMISTRY ORDERABLES Final Resul t Performing Organization Address [facility] Co de Phone Number [facility] [address] [address] * Lipid Panel(AMA) w/LDL Calculated (07/13/2025 6:57 AM CDT) Total Cholesterol 157 mg/dL 025 8:10 AM CDT [facility] Comment:Guideline: < 170 mg/dl, Optimal (Not to be construed as a target for drug therapy.) Triglycerides 183 <=1,000 mg/dL 07/13/2025 8:10 AM CDT [facility] Comment: Guideline: < 100 mg/dl, Optimal (Not to be construed as a target for drug therapy.) > 499 mg/dl, Highly abnormal (Please review with your medical team.) HDL Cholesterol 45 mg/dL 8:10 AM T [facility] Comment:Guideline: > 50 mg/d l, Optimal (Not to be construed as a target for drug therapy.) LDL Cholesterol 84 mg/dL 8:10 AM T [facility] Comment: Guideline: < 100 mg/dl, Optimal (Not to be construed as a target for drug therapy.) > 189 mg/dl, Highly abnormal (Please review with your medical team.) Non-HDL Cholesterol 112 mg/dL 07/13/2025 8:10 AM T [facility] Comment: Guideline: < 120 mg/dl, Optimal (Not to be construed as a target for drug therapy.) > 219 mg/dl, Highly abnormal (Please review with your medical team.) Patient Fasting? Fasting 07/13/20 8:10 AM T [facility] Blood VEIN SPECIMEN / Unknown Blood Collection / Unknown 07/13/2025 6:57 AM CDT 07/13/2025 7:12 AM CDT [facility] - 07/13/2025 8:10 AM CDT On February 26, 2023, [facility] laboratories changed the equation for calculating estimated low-density lipoprotein-cholesterol (LDL-C) from the Friedewald equation to the Justino/Jairo equation. This new equation is only valid for lipid panels with triglycerides < 400 mg/dL. Studies have demonstrated that this new equation will improve the accuracy of LDL-C, especially in scenarios when LDL-C concentrations are relatively low (< 100 mg/dL), triglycerides are elevated, or patient is non- fasting. References: - Vincent Badillo, Usman Pablo, Julian Hawkins, Abhishek Lloyd, Abhishek Mckeon, Jean Slater, and Luigi Conley. 2013. Comparison of a Novel Method vs the Friedewald Equation for Estimating Low-Density Lipoprotein Cholesterol Levels from the Standard Lipid Profile. ELEANOR: The Journal of the [place] [employer] 310 (19): 2061-68. - Bam V, Lynn Aragon, Cinthia Bar, Rice M, Estrella R, Elena E, Nohemy RS, Jarvis SR, Justino SS. Fasting Versus Nonfasting and Low-Density Lipoprotein Cholesterol Accuracy. Circulation. 2018 Nov 05;137(1):10-19. us Cathleen Gallegos MD CHEMISTRY ORDERABLES Final Resul t [facility] [address] [place] [address] * (ABNORMAL) Comprehensive Metabolic Panel (07/13/2025 6:57 AM CDT) Only the most recent of3 resultswithin the time period is included. Sodium 135 133 - 146 mmol/L 07/13/2025 8:10 AM T [facility] LAB Potassium 4.8 3.5 - 5.1 mmol/L 07/13/2025 8:10 AM T [facility] Chloride 100 98 - 109 mmol/L 07/13/2025 8:10 AM [facility] Carbon Dioxide 27 21 - 31 mmol/L 07/13/2025 8:10 AM [facility] Anion Gap 9 4 - 13 mmol/L 07/13/2025 8:10 AM T [facility] Blood Urea Nitrogen 35(H) 2 - 25 mg/dL 07/13/2025 8:10 AM T [facility] Creatinine 2.06(H) 0.60 - 1.30 mg/dL 07/13/2025 8:10 AM [facility] eGFRcr (CKD-EPI 2020) 35(L) >=60 mL/min/1. 73 m 07/13/2025 8:10 AM T [facility] Calcium 9.0 8.3 - 10.5 mg/dL 07/13/2025 8:10 AM [facility] Glucose 158(H) 65 - 100 mg/dL 07/13/2025 8:10 AM [facility] Protein, Total 7.2 6.4 - 8.9 g/dL 07/13/2025 8:10 AM [facility] Albumin 3.7 3.5 - 5.7 g/dL 07/13/2025 8:10 AM CDT [facility] ALT 12 0 - 52 units/L 07/13/2025 8:10 AM CDT [facility] Alkaline Phosphatase 52 34 - 104 units/L 07/13/2025 8:10 AM CDT [facility] AST 19 0 - 39 units/L 07/13/2025 8:10 AM CDT [facility] Bilirubin, Total 0.6 0.0 - 1.0 mg/dL 07/13/2025 8:10 AM CDT [facility] Patient Fasting? Fasting 07/13/2025 8:10 AM CDT [facility] Blood VEIN SPECIMEN / Unknown Blood Collection / Unknown 07/13/2025 6:57 AM CDT 07/13/2025 7:12 AM CDT us Cathleen Gallegos MD CHEMISTRY ORDERABLES Final Resul t [facility] Alysa Hackett [address] [place] [address] * CT Chest without Contrast (11/30/2018 5:53 PM COAT PADDER) Anatomical Region Laterality Modality Chest Computed Tomogra phy 12/01/2018 8:10 AM COAT PADDER Narrative 12/01/2018 8:34 AM COAT PADDER PROCEDURE: CT CHEST WO CONTRAST. HISTORY: Shortness of status post gemcitabine infusion. TECHNIQUE: Non-contrast helical thoracic CT was performed. COMPARISON: Outside Chest CT from 11/02/2018 FINDINGS: Support Devices: Right chest wall port catheter tip terminates in the SVC. Heart/Pericardium/Great Vessels: Cardiac size is normal. Extensive aortic valvular calcifications. There is moderate calcific coronary artery atherosclerosis. There is no pericardial effusion The main pulmonary artery is normal in diameter. Pleural Spaces: Moderate bilateral pleural effusions are new. Mediastinum/Elke: 11 mm short axis right paratracheal node has increased in size, previously 8 mm. A 10 mm left hilar node on image 79 is unchanged. Neck Base/Chest Wall/Diaphragm/Upper Abdomen: A subcutaneous right axillary low-density nodule measures 20 mm on image 43, unchanged possibly representing a sebaceous cyst. Diffuse anasarca. Sequelae of liver transplant. Healed bilateral rib fractures. Lucencies in the right scapula are unchanged. Lungs/Central Airways: Diffuse moderate bronchial wall thickening. Multiple tiny cystic foci throughout the upper lobes are unchanged and likely represent emphysema. 4 mm nodule in the left lower lobe on image 109 is unchanged. Diffuse bilateral groundglass opacities and septal thickening, new compared to prior study. Bibasilar subsegmental atelectasis. Previously seen bibasilar reticular and cystic opacities are obscured on this examination. CONCLUSIONS: 1. Diffuse bilateral groundglass opacities and septal thickening, new compared to prior study. Given moderate bilateral pleural effusions which are also new, favor pulmonary edema although atypical infection could have a similar appearance. 2. Mildly enlarged mediastinal nodes are new and may be reactive. FINAL REPORT Attending Radiologist: Jennifer Lemus MD Date Signed Off: 12/01/2018 08:34 Procedure Note Jennifer Lemus MD - 12/01/2018 PROCEDURE: CT CHEST WO CONTRAST. HISTORY: Shortness of status post gemcitabine infusion. TECHNIQUE: Non-contrast helical thoracic CT was performed. COMPARISON: Outside Chest CT from 11/02/2018 FINDINGS: Support Devices: Right chest wall port catheter tip terminates in theSVC. Heart/Pericardium/Great Vessels: Cardiac size is normal. Extensive aortic valvular calcifications. There is moderate calcific coronary artery atherosclerosis. There is nopericardial effusion The main pulmonary artery is normal in diameter. Pleural Spaces: Moderate bilateral pleural effusions are new. Mediastinum/Elke: 11 mm short axis right paratracheal node has increasedin size, previously 8 mm. A 10 mm left hilar node on image 79 isunchanged. Neck Base/Chest Wall/Diaphragm/Upper Abdomen: A subcutaneous right axillary low-density nodule measures 20 mm on image43, unchanged possibly representing a sebaceous cyst. Diffuse anasarca. Sequelae of liver transplant. Healed bilateral rib fractures. Lucencies inthe right scapula are unchanged. Lungs/Central Airways: Diffuse moderate bronchial wall thickening. Multiple tiny cystic foci throughout the upper lobes are unchanged andlikely represent emphysema. 4 mm nodule in the left lower lobe on image 109 is unchanged. Diffuse bilateral groundglass opacities and septal thickening, newcompared to prior study. Bibasilar subsegmental atelectasis. Previously seen bibasilar reticular and cystic opacities are obscured onthis examination. CONCLUSIONS: 1. Diffuse bilateral groundglass opacities and septal thickening, newcompared to prior study. Given moderate bilateral pleural effusions whichare also new, favor pulmonary edema although atypical infection could havea similar appearance. 2. Mildly enlarged mediastinal nodes are new and may be reactive. FINAL REPORT Attending Radiologist: Jennifer Lemus MD Date Signed Off: 12/01/2018 08:34 us Skip Baca MD IMG CT ORDERABLES Final Result * (ABNORMAL) Ottr Historical Lab (03/23/2015 5:31 AM CDT) WHITE CELL COUNT - External 5.3 3.9 - 11.0 K/UL LAB DE (EXTRACT SYSTEMS) RED CELL COUNT - External 5.69 4.30 - 5.70 M/UL LAB DE (EXTRACT SYSTEMS) HEMOGLOBIN - External 15.6 13.1 - 17.2 GM/DL LAB DE (EXTRACT SYSTEMS) HEMATOCRIT - External 47.3 39.8 - 52.2 % LAB DE (EXTRACT SYSTEMS) (MCV) Mean Cell Volume - External 83.1 80.0 - 100.0 fL LAB DE (EXTRACT SYSTEMS) (MCH) Mean Corpuscular Hemoglobin - External 27.3 26.5 - 33.9 pg LAB DE (EXTRACT SYSTEMS) (MCHC) Mean Corpuscular Hemoglobin Concentration - External 32.9 31.5 - 36.0 % LAB DE (EXTRACT SYSTEMS) RDW - External 14.5 12.0 - 15.0 % LAB DE (EXTRACT SYSTEMS) PLATELET COUNT - External 136(L) 140 - 445 K/UL LAB DE (EXTRACT SYSTEMS) Neutrophils - External 62.9 LAB DE (EXTRACT SYSTEMS) EOSINOPHIL - External 2.0 % LAB DE (EXTRACT SYSTEMS) BASOPHILS - External 0.6 % LAB DE (EXTRACT SYSTEMS) Lymphocytes - External 25.6 % LAB DE (EXTRACT SYSTEMS) Monocytes - External 8.9 % LAB DE (EXTRACT SYSTEMS) Urine Color - External YELLOW YELLOW LAB DE (EXTRACT SYSTEMS) SPECIFIC GRAVITY - External 1.016 1.003 - 1.035 LAB DE (EXTRACT SYSTEMS) LEUKOCYTE ESTERASE - External NEG NEG LAB DE (EXTRACT SYSTEMS) Urine Nitrite - External NEG NEG LAB DE (EXTRACT SYSTEMS) Urine Ketones - External NEG NEG LAB DE (EXTRACT SYSTEMS) Urine Bilirubin - External NEG NEG LAB DE (EXTRACT SYSTEMS) Urine Urobilinogen - External 2.0(H) 0.0 - 1.9 LAB DE (EXTRACT SYSTEMS) Urine Bacteria - External none none LAB DE (EXTRACT SYSTEMS) Urine Glucose - External NEG NEG LAB DE (EXTRACT SYSTEMS) Glucose - External 83 70 - 105 mg/dL LAB DE (EXTRACT SYSTEMS) BLOOD UREA NITROGEN - External 25(H) 6 - 19 mg/dL LAB DE (EXTRACT SYSTEMS) Creatinine - External 1.5(H) 0.5 - 1.3 mg/dL LAB DE (EXTRACT SYSTEMS) Sodium (Na) - External 144 133 - 145 mEq/L LAB DE (EXTRACT SYSTEMS) POTASSIUM - External 4.4 3.5 - 5.1 MEQ/L LAB DE (EXTRACT SYSTEMS) Chloride (Cl) - External 110(H) 96 - 108 mEq/L LAB DE (EXTRACT SYSTEMS) CARBON DIOXIDE - External 26 21 - 32 mEq/L LAB DE (EXTRACT SYSTEMS) Calcium (Ca) - External 8.3(L) 8.4 - 10.2 mg/dL LAB DE (EXTRACT SYSTEMS) Albumin - External 3.6 3.5 - 5.0 g/dL LAB DE (EXTRACT SYSTEMS) ALKALINE PHOSPHATASE - External 88 39 - 117 U/L LAB DE (EXTRACT SYSTEMS) Bilirubin Total - External 0.3 0.0 - 1.0 mg/dL LAB DE (EXTRACT SYSTEMS) GFR Estimated - External 48.85 LAB DE (EXTRACT SYSTEMS) GFR(,Est) - External 57.65 ml/min/1.7 3m2 LAB DE (EXTRACT SYSTEMS) Glomerular Filtration Rate (GFR - External no gender LAB DE (EXTRACT SYSTEMS) Urine Creatinine - External 115.0 LAB DE (EXTRACT SYSTEMS) MICROALBUMIN/CREA T RATIO - External 17 0 - 29 LAB DE (EXTRACT SYSTEMS) ABSOLUTE NEUTROPHILS - External 3.3 cells/uL LAB DE (EXTRACT SYSTEMS) Neutrophils (Percentage) - External 62.9 % OTHER EXTERNAL LAB Urine Appearance - External CLR LAB DE (EXTRACT SYSTEMS) pH-Arterial Blood (ABG) - External 5.5 LAB DE (EXTRACT SYSTEMS) URINE PROTEIN - External NEG MG/DL OTHER EXTERNAL LAB GLUCOSE/URINE QUAL - External NEG MG/DL LAB DE (EXTRACT SYSTEMS) KETONE/URINE - External NEG MG/DL LAB DE (EXTRACT SYSTEMS) Urine Blood - External NEG LAB DE (EXTRACT SYSTEMS) URINE UROBILINOGEN - External 2.0 E.U./DL LAB DE (EXTRACT SYSTEMS) AST - External 15 U/L LAB D E (EXTRACT SYSTEMS) ALT - External 28 U/L LAB D E (EXTRACT SYSTEMS) Total Protein - External 6.6 g/dL LAB DE (EXTRACT SYSTEMS) GFR(non- Amer,Est) - External 48.85 ml/min/1.7 3m2 LAB DE (EXTRACT SYSTEMS) TACROLIMUS (FK506) - External 4.4 NG/ML LAB DE (EXTRACT SYSTEMS) MPA ( CELLCEPT LEVEL) - External 6.7 ug/mL LAB DE (EXTRACT SYSTEMS) 03/23/2015 5:31 AM CDT Narrative LAB DE (EXTRACT SYSTEMS) - 03/23/2015 5:31 AM CDT Ordering Provider: NOE Compliance Statement Francheska KEYES us P1 Historical Conversion Provider LAB SEND OUT O RDERABLES Final Result LAB DE (EXTRACT SYSTEMS) OTHER EXTERNAL LAB * HIV 1 \T\ 2 Antibody (01/01/2008 2:50 PM COAT PADDER) HIV-1&2 ANTIBODY - Hx Upload The results for this test, like all personal health information, must remain confidential. [employer] creates access log entries when results are viewed. These access log entries are subsequently audited to verify appropriate access and you may be contacted to explain your relationship with this patient. If you require access to this information in order to provide care for this patient, please proceed, otherwise, please exit this patient's record. . . . . . . . . . . . . . . . . . . . . . . . . . . . . . . . . . . . . . . . . . . . . . . . . . . . . . . . . . . . . . . . . . . . . . . . . HIV-1&2 ANTIBODY: NONREACTIVE HISTORICAL DATA CONVERSION RESULTING AGENCY (SEE streamit SYSTEM) 01/01/2008 2:50 PM COAT PADDER us Sheryl Gonzalez APRN, ALMOND HULLER MICROBIOLOGY - GENERAL ORDERABLES Final Result HISTORICAL DATA CONVERSION RESULTING AGENCY (SEE streamit SYSTEM) * Hepatitis C Antibody (01/01/2008 2:50 PM COAT PADDER) Hepatitis C Antibody NONREACTIVE NR HISTORICAL DATA CONVERSION RESULTING AGENCY (SEE LEGPayvment SYSTEM) Comment:Antibodies to HCV no t detected. Does not exclude early acute HCV infection. 01/01/2008 2:50 PM COAT PADDER Sheryl Gonzalez BRAKE OPERATOR SHEET METAL, ALMOND HULLER IMMUNOLOGY ORDERABLES Final Result Performing Organization Address City/[facility] de Phone Number HISTORICAL DATA CONVERSION RESULTING AGENCY (SEE LEGPayvment SYSTEM) * PSA Total(Screening) (12/11/2007 12:00 PM COAT PADDER) PSA, Total 0.1 0 - 4.0 NG/ML HISTORICAL DATA CONVERSION RESULTING AGENCY (SEE LEGPayvment SYSTEM) 12/11/2007 12:0 0 PM COAT PADDER Michelle Madera MD CHEMISTRY ORDERABLES Final Res ult Performing Organization Address [facility] de Phone Number HISTORICAL DATA CONVERSION RESULTING AGENCY (SEE LEGPayvment SYSTEM) from Last 3 Months or Most Recently Relevant to Health Maintenance Insurance [facility] BLUE CHOICE PREFERRED * Guarantor: BIBIANA MAYFIELD Account Type Relation to Patient Date of Phone Billing Address [place] [facility]- Recipient [address] [place] [address] Advance Directives * Full Code (Latest Code Status on File) Date Activated Date Inactivated Comments 12/25/2018 4:24 PM 12/27/2018 8:48 PM * Full Code Date Activated Date Inactivated Comments 12/19/2018 7:16 PM 12/25/2018 4:24 PM * Full Code Date Activated Date Inactivated Comments 11/30/2018 12:39 AM 12/11/2018 3:53 PM * Full Code Date Activated Date Inactivated Comments 11/03/2018 11:40 AM 11/06/2018 4:52 PM * Full Code Date Activated Date Inactivated Comments 09/03/2018 2:11 PM 09/08/2018 7:28 PM Care Teams Continuity Clerk Relationship Specialty Start Date End Date Juan Laguerre MD [address] [facility] [address], [place] [address] PCP - General Family Medicine 01/02/18 Aubrey Crabtree III, MD [address] [facility] [address] [place] [address] Hematology and Medical Oncology 10/01/18 Jaki Nieves, PhD [address] [facility] [address] [place] [address] Genetic Counseling 11/27/18
--- OUTSIDE RECORDS SUMMARY | 2025-08-09 09:34 | XMS_ITS | Encounter Summary ---
Author Organization [facility] Address [address] [place] [address] Care Team Providers Care Radio Engineer Name Role Phone Juan Laguerre MD Primary Care Provider [phone] Bro AAWN MD, Aubrey Lane Unavailable [phone] Jaki Nieves PhD Unavailable [phone] Source Comments In the event that this is information that is protected by federal Confidentiality of Substance User Disorder Patient Records, 42 CFR Part 2 prohibits the unauthorized disclosure of these records.[facility] Encounter Details Date Type Department Care Team (Late Contact Info) Description 09/14/2019 Orders Only [place] Transplant Surgery [address] [facility], [address]th [address] [place] [address] Cara Cook RN Social History Tobacco Use [...] [address] [place] [address] Apt confirmed-EH documented as of this encounter Procedures Procedure Name Priority Date/Time Associated Diagnosis Comments BK VIRUS QUANT VIRAL LOAD, URINE Routine 09/17/2019 10:22 AM ASSISTANT PROFESSOR OF PHYSICS PTH, INTACT Routine 09/17/2019 10:22 AM ASSISTANT PROFESSOR OF PHYSICS VITAMIN D 25-HYDROXY Routine 09/17/2019 10:22 AM ASSISTANT PROFESSOR OF PHYSICS PROTEIN/CREAT RATIO, RANDOM URINE Routine 09/17/2019 10:22 AM ASSISTANT PROFESSOR OF PHYSICS URINALYSIS WITH MICROSCOPIC Routine 09/17/2019 10:22 AM ASSISTANT PROFESSOR OF PHYSICS HEPATIC FUNCTION PANEL Routine 09/17/2019 10:22 AM ASSISTANT PROFESSOR OF PHYSICS RENAL FUNCTION PANEL Routine 09/17/2019 10:22 AM ASSISTANT PROFESSOR OF PHYSICS CBC AND DIFFERENTIAL Routine 09/17/2019 9:33 AM ASSISTANT PROFESSOR OF PHYSICS HEMOGLOBIN A1C Routine 09/17/2019 9:22 AM ASSISTANT PROFESSOR OF PHYSICS documented in this encounter Results * PTH,Intact (09/17/2019 10:22 AM ASSISTANT PROFESSOR OF PHYSICS) PTH, Intact - External 47 EXTERNAL LAB 09/17/2019 10:2 2 AM ASSISTANT PROFESSOR OF PHYSICS Narrative EXTERNAL LAB - 10/15/2019 2:04 PM ASSISTANT PROFESSOR OF PHYSICS Verified by Monie Siddiqui on 10/15/2019. us Cathleen Gallegos MD CHEMISTRY ORDERABLES Final Resul t EXTERNAL LAB * Hepatic function panel (09/17/2019 10:22 AM ASSISTANT PROFESSOR OF PHYSICS) Total Bilirubin - External 0.3 0.3 - 1.0 EXTERNAL LAB Direct Bilirubin - External 0.06 0.03 - 0.18 EXTERNAL LAB Alkaline Phos - External 77 34 - 104 EXTERNAL LAB AST (SGOT) - External 16 13 - 39 EXTERNAL LAB ALT (SGPT) - External 14 7 - 52 EXTERNAL LAB Total Protein - External 6.4 6.4 - 8.9 EXTERNAL LAB Albumin - External 3.6 3.5 - 5.79 EXTERNAL LAB 09/17/2019 10:2 2 AM ASSISTANT PROFESSOR OF PHYSICS Narrative EXTERNAL LAB - 10/15/2019 2:04 PM ASSISTANT PROFESSOR OF PHYSICS Verified by Monie Siddiqui on 10/15/2019. aCthleen Gallegos MD CHEMISTRY ORDERABLES Final Resul t EXTERNAL LAB * BK Virus Quant Viral Load, Urine (09/17/2019 10:22 AM ASSISTANT PROFESSOR OF PHYSICS) Pathologist [facility] BK Quantitation Urine - External 6,360 EXTERNAL LAB 09/17/2019 10:2 2 AM ASSISTANT PROFESSOR OF PHYSICS Narrative EXTERNAL LAB - 10/15/2019 2:04 PM ASSISTANT PROFESSOR OF PHYSICS Verified by Monie Siddiqui on 10/15/2019. Cathleen Gallegos MD URINE ORDERABLES Final Result Performing Organization Address [facility] Co de Phone Number EXTERNAL LAB * (ABNORMAL) Renal function panel (09/17/2019 10:22 AM ASSISTANT PROFESSOR OF PHYSICS) Pathologist [facility] Phosphorous - External 3.0 2 - 4.6 mg/dL EXTERNAL LAB Glucose - External 316(H) 70 - 105 mg/dL EXTERNAL LAB Urea Nitrogen - External 31(H) 7 - 25 EXTERNAL LAB Creatinine - External 1.5(H) 0.7 - 1.3 mg/dL EXTERNAL LAB Sodium - External 132(L) 136 - 145 EXTERNAL LAB Potassium - External 4.9 3.5 - 5.1 mEq/L EXTERNAL LAB CO2 - External 25 EXTERNAL LAB Chloride - External 101 98 - 107 mEq/L EXTERNAL LAB Calcium - External 8.7 8.6 - 10.2 EXTERNAL LAB Anion Gap - External 10.9 7.0 - 15.0 EXTERNAL LAB GFR(Others) - External 47.9(L) >60.0 ml/min EXTERNAL LAB GFR() - External 58(L) >60.0 ml/min EXTERNAL LAB 09/17/2019 10:2 2 AM ASSISTANT PROFESSOR OF PHYSICS Narrative EXTERNAL LAB - 10/15/2019 2:04 PM ASSISTANT PROFESSOR OF PHYSICS Verified by Monie Siddiqui on 10/15/2019. us Cathleen Gallegos MD CHEMISTRY ORDERABLES Final Resul t Performing Organization Address [facility] Co de Phone Number EXTERNAL LAB * (ABNORMAL) Urinalysis with Microscopic (09/17/2019 10:22 AM ASSISTANT PROFESSOR OF PHYSICS) UA Color - External Yellow Yellow EXTERNAL LAB UA Appearance - External Clear Clear EXTERNAL LAB UA Glucose - External 3+(H) NEG EXTERNAL LAB UA Bilirubin - External NEG mg/dL EXTERNAL LAB UA Ketones - External NEG mg/d EXTERNAL LAB UA Blood - External NEG EXTERNAL LAB Specific [place], Urine - External 1.015 EXTERNAL LAB UA pH - External 6.0 EXTERNAL LAB UA Protein - External NEG mg/dL EXTERNAL LAB UA Urobilinogen - External 0.2 EXTERNAL LAB UA Leukocyte Esterase - External NEG EXTERNAL LAB UA Nitrate - External NEG EXTERNAL LAB UA Squamous Epithelial Cells - External Rare Few EXTERNAL LAB UA Hyaline Cast - External None /LPF EXTERNAL LAB UA Bacteria - External Rare None H EXTERNAL LAB UA RBC - External 0-2 0 - 4 EXTERNAL LAB UA Crystal - External NONE EXTERNAL LAB 09/17/2019 10:2 2 AM ASSISTANT PROFESSOR OF PHYSICS Narrative EXTERNAL LAB - 10/15/2019 2:04 PM ASSISTANT PROFESSOR OF PHYSICS Verified by Monie Siddiqui on 10/15/2019. us Cathleen Gallegos MD URINE ORDERABLES Final Result Performing Organization Address [facility] de Phone Number EXTERNAL LAB * (ABNORMAL) Vitamin D 25-Hydroxy (09/17/2019 10:22 AM ASSISTANT PROFESSOR OF PHYSICS) Vitamin D, 25-Hydroxy, Total - External 25.5(L) 30.0 - 100.0 EXTERNAL LAB 09/17/2019 10:2 2 AM ASSISTANT PROFESSOR OF PHYSICS Narrative EXTERNAL LAB - 10/15/2019 2:04 PM ASSISTANT PROFESSOR OF PHYSICS Verified by Monie Siddiqui on 10/15/2019. us Cathleen Gallegos MD CHEMISTRY ORDERABLES Final Resul t Performing Organization Address [facility] de Phone Number EXTERNAL LAB * (ABNORMAL) Protein /Creatinine Ratio, Urine (09/17/2019 10:22 AM ASSISTANT PROFESSOR OF PHYSICS) Urine Creatinine, Random - External 66.1 EXTERNAL LAB Protein, Urine - External 55 EXTERNAL LAB Prot/Creat Ratio - External 837(H) 0 - 200 EXTERNAL LAB 09/17/2019 10:2 2 AM ASSISTANT PROFESSOR OF PHYSICS Narrative EXTERNAL LAB - 10/15/2019 2:04 PM ASSISTANT PROFESSOR OF PHYSICS Verified by Monie Siddiqui on 10/15/2019. us Cathleen Gallegos MD URINE ORDERABLES Final Result Performing Organization Address [facility] de Phone Number EXTERNAL LAB * (ABNORMAL) CBC with Differential (09/17/2019 9:33 AM ASSISTANT PROFESSOR OF PHYSICS) White Blood Cells - External 9.5 4.0 - 10.0 uL EXTERNAL LAB Red Blood Cells - External 5.98 EXTERNAL LAB Hemoglobin - External 14.6 EXTERNAL LAB Hematocrit - External 47.5 EXTERNAL LAB MCH - External 24.4 EXTERNAL LAB MCV - External 79 79 - 95 EXTERNAL LAB MCHC - External 30.7(L) 32.2 - 35.5 % EXTERNAL LAB RDW - External 16.8(H) 11.6 - 14.4 EXTERNAL LAB Platelets - External 146 EXTERNAL LAB Neutrophils Abs (cells/uL) - External 5,409 cells/uL EXTERNAL LAB Lymph Absolute - External 3,416 EXTERNAL LAB Sharkey Absolute - External 475 cells/uL EXTERNAL LAB - External 95 0 - 300 cells/uL EXTERNAL LAB Basophil Absolute - External 95 0 - 100 cells/uL EXTERNAL LAB Neutrophils - External 55 EXTERNAL LAB Basophils - External 1 EXTERNAL LAB Lymphocytes - External 35 19-4094, % EXTERNAL LAB Monocytes - External 5 4 - 12 % EXTERNAL LAB Eosinophils - External 1 0 - 3 % EXTERNAL LAB 09/17/2019 9:33 AM ASSISTANT PROFESSOR OF PHYSICS Narrative EXTERNAL LAB - 10/15/2019 2:04 PM ASSISTANT PROFESSOR OF PHYSICS Verified by Monie Siddiqui on 10/15/2019. Cathleen Gallegos MD HEMATOLOGY ORDERABLES Final Resu lt EXTERNAL LAB * (ABNORMAL) Hemoglobin A1c (09/17/2019 9:22 AM ASSISTANT PROFESSOR OF PHYSICS) Hemoglobin A1C - External 11.8(H) 4.8 - 5.6 EXTERNAL LAB 09/17/2019 9:22 AM ASSISTANT PROFESSOR OF PHYSICS Narrative EXTERNAL LAB - 10/15/2019 2:04 PM ASSISTANT PROFESSOR OF PHYSICS Verified by Monie Siddiqui on 10/15/2019. 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) Liver replaced by transplant Kidney replaced by transplant documented in this encounter Additional Health Concerns Infection Onset Date Last Indicated Resolved Time COVID-19 Comment:Tested + on 09/0109/01/2020 09/05/2020 09/25/2020 12: 31 AM ASSISTANT PROFESSOR OF PHYSICS documented as of this encounter Care Teams Radio Engineer Relationship Specialty Start Date End Date Juan Laguerre MD [address] [facility] [address] [place] [address] PCP - General Family Medicine 01/02/18 Aubrey Crabtree III, MD [address] [facility] [address] [place] [address] Hematology and Medical Oncology 10/01/18 Jaki Nieves, PhD [address] [facility] [address] [place] [address] Genetic Counseling 11/27/18 documented as of this encounter
--- OUTSIDE RECORDS SUMMARY | 2025-08-09 09:34 | XMS_ITS | Encounter Summary ---
Author Organization [facility] Address [address] [place] [address] Care Team Providers Care Credit And Collections Analyst Name Role Phone Juan Laguerre MD Primary Care Provider [phone] Bro AWAN MD, Aubrey Lane Unavailable [phone] Jaki Nieves PhD Unavailable [phone] Source Comments In the event that this is information that is protected by federal Confidentiality of Substance User Disorder Patient Records, 42 CFR Part 2 prohibits the unauthorized disclosure of these records.[facility] Encounter Details Date Type Department Care Team (Late Contact Info) Description 09/03/2018 Procedure Pass NM Surgery [address] [place] [address] Social History Tobacco Use Types Packs/Day Years Used Date Smoking Tobacco: Former Cigarettes 30 982 - 2011 Smokeless Tobacco: Never Alcohol [...] Encounters Date Type Department Care Team ([facility] Contact Info) Description 07/15/2026 1:00 PM CDT Office Visit [place] Transplant Surgery [address] [place] [address] Apt confirmed-EH documented as of this encounter Visit Diagnoses Not on filedocumented in this encounter Additional Health Concerns Infection Onset Date Last Indicated Resolved Time COVID-19 Comment:Tested + on 09/0109/01/2020 09/05/2020 09/25/2020 12: 31 AM SOCIAL ORGANIZATION PROFESSOR documented as of this encounter Care Teams Credit And Collections Analyst Relationship Specialty Start Date End Date Juan Laguerre MD [address] [id number] PCP - General Family Medicine 01/02/18 Aubrey Crabtree III, MD [address] [address] Hematology and Medical Oncology 10/01/18 Jaki Nieves, PhD [address] [facility] [address] [place] [address] Genetic Counseling 11/27/18 documented as of this encounter
--- OUTSIDE RECORDS SUMMARY | 2025-08-09 09:34 | XMS_ITS | Encounter Summary ---
Author Organization [facility], formerly [facility] Address [address] [place] [address] Care Team Providers Care Treatment Technician Name Role Phone Juan Laguerre MD Primary Care Provider [phone] Bro AWAN MD, Aubrey Lane Unavailable [phone] Jaki Nieves PhD Unavailable [phone] Source Comments In the event that this is information that is protected by federal Confidentiality of Substance User Disorder Patient Records, 42 CFR Part 2 prohibits the unauthorized disclosure of these records.[facility] Encounter Details Date Type Department Care Team (Late st Contact Info) Description 08/25/2018 Orders Only [place] Transplant Surgery [address] [facility] [place], [place] [address] Noe Keyes MD [address] [facility] [address], [place] [address] Social History Tobacco Use Types Packs/Day Years [...] [place] Transplant Surgery [address] [facility], [address] [place] [address] Apt confirmed-EH documented as of this encounter Procedures Procedure Name Priority Date/Time Associated Diagnosis Comments TACROLIMUS Routine 08/22/2018 5:34 AM CDT PROTEIN/CREAT RATIO, RANDOM URINE Routine 08/22/2018 5:34 AM CDT URINALYSIS WITH MICROSCOPIC Routine 08/22/2018 5:34 AM CDT CBC AND DIFFERENTIAL Routine 08/22/2018 5:34 AM CDT RENAL FUNCTION PANEL Routine 08/22/2018 5:34 AM CDT documented in this encounter Results * (ABNORMAL) Urinalysis with Microscopic (08/22/2018 5:34 AM CDT) Specific [place], Urine - External 1.012 1.003 - 1.035 EXTERNAL LAB UA pH [...] LAB UA Blood - External Negative Negative raul/uL EXTERNAL LAB UA Color - External Yellow Yellow EXTERNAL LAB UA Appearance - External Clear Clear EXTERNAL LAB UA WBC - External 0-5 Negative /hpf EXTERNAL LAB UA RBC - External 0-5 0-5, /hpf EXTERNAL LAB UA Hyaline Cast - External 2-5(A) Occasional /LPF EXTERNAL LAB UA Yeast - External None /HPF EXTERNAL LAB 08/22/2018 5:34 AM CDT Narrative EXTERNAL LAB - 09/02/2018 1:28 PM CDT Verified by Monie Siddiqui on 09/02/2018. us Noe Keyes MD URINE ORDERABLES Final Resul t Performing Organization Address [facility] de Phone Number EXTERNAL LAB * Protein /Creatinine Ratio, Urine (08/22/2018 5:34 AM CDT) Urine Creatinine, Random - External 115 mg/dL EXTERNAL LAB Protein, Urine - External 18.5 EXTERNAL LAB Prot/Creat Ratio - External 0.16 EXTERNAL LAB 08/22/2018 5:34 AM CDT Narrative EXTERNAL LAB - 09/02/2018 1:28 PM CDT Verified by Monie Siddiqui on 09/02/2018. us Noe Keyes MD URINE ORDERABLES Final Resul t Performing Organization Address [facility] de Phone Number EXTERNAL LAB * Tacrolimus (08/22/2018 5:34 AM CDT) Tacrolimus (FK506), Blood - External 11.2 ng/mL EXTERNAL LAB 08/22/2018 5:34 AM CDT Narrative EXTERNAL LAB - 09/02/2018 1:28 PM CDT Verified by Monie Siddiqui on 09/02/2018. us Noe Keyes MD CHEMISTRY ORDERABLES Final R esult Performing Organization Address [facility] de Phone Number EXTERNAL LAB * (ABNORMAL) Renal function panel (08/22/2018 5:34 AM CDT) Sodium - External 139 133 - 145 mmol/L EXTERNAL LAB Potassium - External 5.2(H) 3.5 - 5.1 mmol/L EXTERNAL LAB Chloride - External 105 96 - 108 mmol/L EXTERNAL LAB CO2 - External 27 mmol/L EXTERNAL LAB Anion Gap - External 12.2 10.0 - 20.0 mmol/L EXTERNAL LAB Glucose - External 237(H) 70 - 105 mg/dL EXTERNAL LAB Urea Nitrogen - External 27(H) 6 - 19 mg/dL EXTERNAL LAB Creatinine - External 1.50(H) 0.50 - 1.30 mg/dL EXTERNAL LAB Albumin - External 3.4(L) 3.5 - 5.0 g/dL EXTERNAL LAB Calcium - External 8.4 8.4 - 10.2 mg/dL EXTERNAL LAB Phosphorous - External 3.4 2.6 - 4.5 mg/dL EXTERNAL LAB GFR(Others) - External 47 EXTERNAL LAB GFR() - External 55(L) >=60 EXTERNAL LAB 08/22/2018 5:34 AM CDT Narrative EXTERNAL LAB - 09/02/2018 1:28 PM CDT Verified by Monie Siddiqui on 09/02/2018. us Noe Keyes MD CHEMISTRY ORDERABLES Final R esult EXTERNAL LAB * (ABNORMAL) CBC with Differential (08/22/2018 5:34 AM CDT) White Blood Cells - External 6.54 3.90 - 11.00 10(3)/mcL EXTERNAL LAB Red Blood Cells - External 5.17 4.20 - 5.80 10(6)/mcL EXTERNAL LAB Hemoglobin - External 13.2 12.6 - 17.4 g/dL EXTERNAL LAB Hematocrit - External 42.1 39.8 - 52.2 % EXTERNAL LAB MCV - External 81.4 80.0 - 100.0 fL EXTERNAL LAB MCH - External 25.5(L) 26.5 - 33.9 pg EXTERNAL LAB MCHC - External 31.4(L) 31.5 - 36.0 g/dL EXTERNAL LAB Platelets - External 144 140 - 445 10(3)/mcL EXTERNAL LAB RDW - External 15.1(H) 12.0 - 15.0 % EXTERNAL LAB Neutrophils - External 65.6 % EXTERNAL LAB Lymphocytes - External 24.3 % EXTERNAL LAB Monocytes - External 8.3 % EXTERNAL LAB Eosinophils - External 0.8 % EXTERNAL LAB Basophils - External 0.5 % EXTERNAL LAB Neutrophils Abs (k/uL) - External 4.30 1.40 - 7.30 10(3)/mcL EXTERNAL LAB Lymph Absolute - External 1.59 1.30 - 2.90 10(3)/mcL EXTERNAL LAB [place] Absolute - External 0.54 0.10 - 0.80 10(3)/mcL EXTERNAL LAB - External 0.05 0.00 - 0.30 10(3)/mcL EXTERNAL LAB Basophil Absolute - External 0.03 0.00 - 0.10 10(3)/mcL EXTERNAL LAB 08/22/2018 5:34 AM CDT Narrative EXTERNAL LAB - 09/02/2018 1:28 PM CDT Verified by Monie Siddiqui on 09/02/2018. 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
--- OUTSIDE RECORDS SUMMARY | 2025-08-09 09:34 | XMS_ITS | Encounter Summary ---
Author Organization [facility] Address [address] [place] [address] Care Team Providers Care Executive Advisor Name Role Phone Juan Laguerre MD Primary Care Provider [phone] Bro AWAN MD, Aubrey Lane Unavailable [phone] Jaki Nieves PhD Unavailable [phone] Source Comments In the event that this is information that is protected by federal Confidentiality of Substance User Disorder Patient Records, 42 CFR Part 2 prohibits the unauthorized disclosure of these records.[facility] Encounter Details Date Type Department Care Team (Late st Contact Info) Description 09/21/2019 Orders Only NM Transplant Surgery [address] [facility], [address] [place], [place] [address] Cathleen Gallegos MD [address] [facility] [address], [place] [address] Social History Tobacco Use Types Packs/Day Years [...] [facility] [address] [address] [place] [address] Apt confirmed-EH documented as of this encounter Visit Diagnoses Diagnosis Kidney transplant 01/02/2008 documented in this encounter Additional Health Concerns Infection Onset Date Last Indicated Resolved Time COVID-19 Comment:Tested + on 09/0109/01/2020 09/05/2020 09/25/2020 12: 31 AM 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
--- OUTSIDE RECORDS SUMMARY | 2025-08-09 09:34 | XMS_ITS | Encounter Summary ---
Author Organization [facility] Address [address] [place] [address] Care Team Providers Care Configuration Analyst Name Role Phone Juan Laguerre MD Primary Care Provider [phone] Bro AWAN MD, Aubrey Lane Unavailable [phone] Jaki Nieves PhD Unavailable [phone] Source Comments In the event that this is information that is protected by federal Confidentiality of Substance User Disorder Patient Records, 42 CFR Part 2 prohibits the unauthorized disclosure of these records.[facility] Encounter Details Date Type Department Care Team (Late Contact Info) Description 07/16/2018 Procedure Pass NM Radiology [address], [address] [place] [address] Social History Tobacco Use Types Packs/Day Years [facility] [address] [place] [address] Apt confirmed-EH documented as of this encounter Visit Diagnoses Not on filedocumented in this encounter Additional Health Concerns Infection Onset Date Last Indicated Resolved Time COVID-19 Comment:Tested + on 09/0109/01/2020 09/05/2020 09/25/2020 12: 31 AM 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
--- OUTSIDE RECORDS SUMMARY | 2025-08-09 09:34 | XMS_ITS | Encounter Summary ---
Author Organization [facility] Address [address] [place] [address] Care Team Providers Care Land Leasing Examiner Name Role Phone Juan Laguerre MD Primary Care Provider [phone] Bro AWAN MD, Aubrey Lane Unavailable [phone] Jaki Nieves PhD Unavailable [phone] Source Comments In the event that this is information that is protected by federal Confidentiality of Substance User Disorder Patient Records, 42 CFR Part 2 prohibits the unauthorized disclosure of these records.[facility] Encounter Details Date Type Department Care Team (Late Contact Info) Description 10/10/2020 Orders Only NM Transplant Surgery [address] [facility], [address] [place] [address] Linette Almaguer RN Social History Tobacco Use Types Packs/Day [...] [address] [place] [address] Apt confirmed-EH Pending Results Name Type Priority Associated Diagnoses Date /Time Mycophenolic Acid Lab Routine 020 12:40 PM TENTER documented as of this encounter Procedures Procedure Name Priority Date/Time Associated Diagnosis Comments MYCOPHENOLIC ACID Routine 10/11/2020 12: 40 PM TENTER URINALYSIS WITH MICROSCOPIC Routine 10/11/2020 12:40 PM TENTER 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) CBC AND DIFFERENTIAL Routine 10/11/2020 12:40 PM TENTER 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) HEPATIC FUNCTION PANEL Routine 10/11/2020 12:40 PM TENTER 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 ([facility]-HCC) BASIC METABOLIC PANEL Routine 10/11/2020 12:40 PM TENTER documented in this encounter Results * (ABNORMAL) Basic Metabolic Panel (10/11/2020 12:40 PM TENTER) Glucose - External 126(H) 70 - 105 mg/dL EXTERNAL LAB Urea Nitrogen - External 27(H) 7 - 25 mg/dL EXTERNAL LAB Creatinine - External 1.5(H) 0.7 - 1.3 mg/dL EXTERNAL LAB Sodium - External 134(L) 136 - 145 mEq/L EXTERNAL LAB Potassium - External 4.8 3.5 - 5.1 mEq/L EXTERNAL LAB Chloride - External 98 98 - 107 mEq/L EXTERNAL LAB Calcium - External 9.1 8.6 - 10.2 mg/dL EXTERNAL LAB Anion Gap - External 10.8 7.0 - 15.0 mEq/L EXTERNAL LAB GFR(Others) - External 47.8(L) >60.0 ml/min EXTERNAL LAB GFR() - External 57.8(L) >60.0 ml/min EXTERNAL LAB CO2 - External 30 EXTERNAL LAB 10/11/2020 12:4 0 PM TENTER Narrative EXTERNAL LAB - 10/12/2020 11:45 AM TENTER Verified by Monie Siddiqui on 10/12/2020. Cathleen Gallegos MD CHEMISTRY ORDERABLES Final Resul t Performing Organization Address [facility] de Phone Number EXTERNAL LAB * (ABNORMAL) Urinalysis with Microscopic (10/11/2020 12:40 PM TENTER) UA Color - External DK YELLOW(A) Yellow EXTERNAL LAB UA Appearance - External CLEAR Clear EXTERNAL LAB UA Glucose - External 1+ NEG mg/dL EXTERNAL LAB UA Bilirubin - External NEG NEG mg/dL EXTERNAL LAB UA Ketones - External Trace(H) NEG mg/dL EXTERNAL LAB Specific [place], Urine - External 1.020 EXTERNAL LAB UA Blood - External NEG NEG mg/L EXTERNAL LAB UA pH - External 6.0 5.0 - 8.0 EXTERNAL LAB UA Protein - External 1+(H) NEG mg/dL EXTERNAL LAB UA Urobilinogen - External 1 0.2 - 1.0 mg/dL EXTERNAL LAB UA Nitrate - External NEG NEG EXTERNAL LAB UA Leukocyte Esterase - External NEG NEG EXTERNAL LAB UA Squamous Epithelial Cells - External Moderate( A) Few EXTERNAL LAB UA Hyaline Cast - External None None /LPF EXTERNAL LAB UA Bacteria - External Rare(A) None /HPF EXTERNAL LAB UA WBC - External 0-4 0 - 4 /HPF EXTERNAL LAB UA RBC - External 3-5 EXTERNAL LAB Urine URINE SPECIMEN COLLECTION, CLEAN CATCH / Unknown 10/11/2020 12:40 PM TENTER Narrative EXTERNAL LAB - 10/12/2020 11:45 AM TENTER Verified by Monie Siddiqui on 10/12/2020. Cathleen Gallegos MD URINE ORDERABLES Final Result Performing Organization Address [facility] de Phone Number EXTERNAL LAB * (ABNORMAL) CBC with Differential (10/11/2020 12:40 PM TENTER) White Blood Cells - External 10.4(H) 4.0 - 10.0 10*3/uL EXTERNAL LAB Hemoglobin - External 14.1 13.7 - 17.5 g/dL EXTERNAL LAB Platelets - External 268 163 - 369 10*3/uL EXTERNAL LAB MCV - External 78(L) 79 - 95 fL EXTERNAL LAB MCH - External 23.7(L) 25.6 - 32.2 pg EXTERNAL LAB RDW - External 18.1 11.6 - 144 % EXTERNAL LAB Neutrophils Abs (cells/uL) - External 4,554 cells/uL EXTERNAL LAB Lymph Absolute - External 3,933 cells/uL EXTERNAL LAB [place] Absolute - External 1,449(H) cells/uL EXTERNAL LAB - External 311(H) 0 - 300 cells/uL EXTERNAL LAB Basophil Absolute - External 104(H) 0 - 100 cells/uL EXTERNAL LAB Lymphocytes - External 38 19 - 40 % EXTERNAL LAB Monocytes - External 14(H) 4 - 12 % EXTERNAL LAB Eosinophils - External 3 0 - 3 % EXTERNAL LAB Basophils - External 1 0 - 1 % EXTERNAL LAB Red Blood Cells - External 5.95 EXTERNAL LAB MCHC - External 30.5 EXTERNAL LAB Neutrophils - External 44 EXTERNAL LAB Blood VEIN SPECIMEN / Unknown 10/11/2020 12:40 PM TENTER Narrative EXTERNAL LAB - 10/12/2020 11:45 AM TENTER Verified by Monie Siddiqui on 10/12/2020. Cathleen Gallegos MD HEMATOLOGY ORDERABLES Final Resu lt EXTERNAL LAB * (ABNORMAL) Hepatic function panel (10/11/2020 12:40 PM TENTER) Total Bilirubin - External 0.5 0.3 - 1.0 mg/dL EXTERNAL LAB Direct Bilirubin - External 0.08 0.03 - 0.18 mg/dL EXTERNAL LAB Alkaline Phos - External 77 34 - 104 U/L EXTERNAL LAB AST (SGOT) - External 12(L) 13 - 39 U/L EXTERNAL LAB ALT (SGPT) - External 8 7 - 52 U/L EXTERNAL LAB Total Protein - External 6.5 6.4 - 8.9 g/dL EXTERNAL LAB Albumin - External 3.3(L) 3.5 - 5.7 g/dL EXTERNAL LAB Blood VEIN SPECIMEN / Unknown 10/11/2020 12:40 PM TENTER Narrative EXTERNAL LAB - 10/12/2020 11:45 AM TENTER Verified by Monie Siddiqui on 10/12/2020. Cathleen Gallegos MD CHEMISTRY ORDERABLES Final Resul t EXTERNAL LAB documented in this encounter Visit Diagnoses Diagnosis 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 transplant documented in this encounter Care Teams Land Leasing Examiner Relationship Specialty Start Date End Date Juan Laguerre MD [address] [facility] [address] [place] [address] PCP - General Family Medicine 01/02/18 Aubrey Crabtree III, MD [address] [facility] [address] [place] [address] Hematology and Medical Oncology 10/01/18 Jaki Nieves, PhD [address] [facility] [address] [place] [address] Genetic Counseling 11/27/18 documented as of this encounter
--- OUTSIDE RECORDS SUMMARY | 2025-08-09 09:34 | XMS_ITS | Encounter Summary ---
Author Organization [facility] Address [address] [place] [address] Care Team Providers Care Beauty Shop Manager Name Role Phone Juan Laguerre MD Primary Care Provider [phone] Bro AWAN MD, Aubrey Lane Unavailable [phone] Jaki Nieves PhD Unavailable [phone] Source Comments In the event that this is information that is protected by federal Confidentiality of Substance User Disorder Patient Records, 42 CFR Part 2 prohibits the unauthorized disclosure of these records.[facility] Encounter Details Date Type Department Care Team (Late st Contact Info) Description 07/02/2022 Orders Only [place] Transplant Surgery [address] [facility], [address] [place], [place] [address] Sandra Joiner, FISH LIVER SORTER, COUNTERPERSON [address] [facility] [address] [place] [address] Social History Tobacco Use Types Packs/Day Years [...] [address] , [address] [place] [address] Apt confirmed-EH documented as of this encounter Procedures Procedure Name Priority Date/Time Associated Diagnosis Comments BK VIRUS QUANT VIRAL LOAD, URINE Routine 07/14/2022 6:36 AM CDT EVEROLIMUS LEVEL Routine 07/14/2022 6:36 AM CDT PTH, INTACT Routine 07/14/2022 6:36 AM CDT MYCOPHENOLIC ACID Routine 07/14/2022 6:3 6 AM CDT VITAMIN D 25-HYDROXY Routine 07/14/2022 6:36 AM CDT BK VIRUS DNA QUANT PCR, BLOOD Routine 07/14/2022 6:36 AM CDT URINALYSIS WITH MICROSCOPIC Routine 07/14/2022 6:36 AM CDT CBC AND DIFFERENTIAL Routine 07/14/2022 6:36 AM CDT PHOSPHORUS LEVEL Routine 07/14/2022 6:36 AM CDT LIPID PANEL (AMA) W/LDL CALC Routine 07/14/2022 6:36 AM CDT COMPREHENSIVE METABOLIC PANEL Routine 07/14/2022 6:36 AM CDT documented in this encounter Results * BK Virus DNA Quant PCR, Blood (07/14/2022 6:36 AM CDT) BK Virus DNA, Qn PCR - External NOT DETECTED EXTERNAL LAB 07/14/2022 6:36 AM CDT Narrative EXTERNAL LAB - 07/18/2022 12:49 PM CDT Verified by Koki Burks on 07/18/2022. Physician Non-Staff IMMUNOLOGY ORDERABLES Final Result Performing Organization Address [facility] de Phone Number EXTERNAL LAB * BK Virus Quant Viral Load, Urine (07/14/2022 6:36 AM CDT) Pathologist [facility] BK Quantitation Urine - External 59,200 EXTERNAL LAB 07/14/2022 6:36 AM CDT Narrative EXTERNAL LAB - 07/18/2022 5:25 AM CDT Verified by Koki Burks on 07/18/2022. Edwin Del Toro MD URINE ORDERABLES Final Res ult Performing Organization Address [facility] de Phone Number EXTERNAL LAB * Everolimus Level (07/14/2022 6:36 AM CDT) Pathologist [facility] Everolimus Level - External 6.2 EXTERNAL LAB 07/14/2022 6:36 AM CDT Narrative EXTERNAL LAB - 07/16/2022 1:15 PM CDT Verified by Koki Burks on 07/16/2022. Physician Non-Staff CHEMISTRY ORDERABLES Final R esult Performing Organization Address [facility] de Phone Number EXTERNAL LAB * Mycophenolic Acid (07/14/2022 6:36 AM CDT) Pathologist [facility] Mycophenolic Acid - External 2.4 1.0 - 3.5 ug/mL EXTERNAL LAB 07/14/2022 6:36 AM CDT Narrative EXTERNAL LAB - 07/16/2022 1:15 PM CDT Verified by Koki Burks on 07/16/2022. Physician Non-Staff CHEMISTRY ORDERABLES Final R esult Performing Organization Address [facility] de Phone Number EXTERNAL LAB * (ABNORMAL) Urinalysis with microscopic (07/14/2022 6:36 AM CDT) Specific Lohman, Urine - External 1.020 EXTERNAL LAB UA pH - External 6.0(L) 50 - 80 EXTERNAL LAB UA Leukocyte Esterase - External Negative Negative EXTERNAL LAB UA Nitrate - External Negative Negative EXTERNAL LAB UA Protein - External 1+(A) EXTERNAL LAB UA Glucose - External 3+(A) Negative EXTERNAL LAB UA Ketones - External Negative Negative EXTERNAL LAB UA Urobilinogen - External <2.0 <20 mg/dL EXTERNAL LAB UA Bilirubin - External Negative Negative EXTERNAL LAB UA Blood - External Negative Negative raul/ul EXTERNAL LAB UA Color - External Yellow Yellow EXTERNAL LAB UA Appearance - External Clear Clear EXTERNAL LAB 07/14/2022 6:36 AM CDT Narrative EXTERNAL LAB - 07/15/2022 7:40 PM CDT Verified by Monie Siddiqui on 07/15/2022. Edwin Del Toro MD URINE ORDERABLES Final Res ult EXTERNAL LAB * Vitamin D 25-Hydroxy (07/14/2022 6:36 AM CDT) Vitamin D, 25-Hydroxy, Total - External 36 ng/mL EXTERNAL LAB 07/14/2022 6:36 AM CDT Narrative EXTERNAL LAB - 07/15/2022 6:57 AM CDT Verified by Monie Siddiqui on 07/15/2022. us Edwin Del Toro MD CHEMISTRY ORDERABLES Final Result EXTERNAL LAB * (ABNORMAL) Phosphorus Level (07/14/2022 6:36 AM CDT) Phosphorous - External 2.5(L) mg/dL EXTERNAL LAB 07/14/2022 6:36 AM CDT Narrative EXTERNAL LAB - 07/15/2022 6:57 AM CDT Verified by Monie Siddiqui on 07/15/2022. us Edwin Del Toro MD CHEMISTRY ORDERABLES Final Result Performing Organization Address [facility] de Phone Number EXTERNAL LAB * (ABNORMAL) PTH, Intact (07/14/2022 6:36 AM CDT) PTH, Intact - External 191(H) 14 - 72 pg/mL EXTERNAL LAB 07/14/2022 6:3 6 AM CDT Narrative EXTERNAL LAB - 07/15/2022 6:57 AM CDT Verified by Monie Siddiqui on 07/15/2022. Edwin Del Toro MD CHEMISTRY ORDERABLES Final Result Performing Organization Address [facility] de Phone Number EXTERNAL LAB * (ABNORMAL) Lipid Panel(AMA) w/LDL Calculated (07/14/2022 6:36 AM CDT) Total Cholesterol - External 236(H) 0 - 199 mg/dL EXTERNAL LAB Triglycerides - External 776(H) 0 - 149 mg/dL EXTERNAL LAB HDL Cholesterol - External 35(L) 40 - 100 mg/dL EXTERNAL LAB Cholesterol LDL Direct - External 72 <130 mg/dL EXTERNAL LAB 07/14/2022 6:36 AM CDT Narrative EXTERNAL LAB - 07/15/2022 6:57 AM CDT Verified by Monie Siddiqui on 07/15/2022. Edwin Del Toro MD CHEMISTRY ORDERABLES Final Result Performing Organization Address [facility] de Phone Number EXTERNAL LAB * (ABNORMAL) Comprehensive Metabolic Panel (07/14/2022 6:36 AM CDT) Chloride - External 106 96 - 108 mmol/L EXTERNAL LAB CO2 - External 23 21 - 32 mmol/L EXTERNAL LAB Anion Gap - External 11.1 0 - 20.0 mmol/L EXTERNAL LAB Glucose - External 281(H) 80 - 115 mg/dL EXTERNAL LAB Urea Nitrogen - External 23(H) 6 - 19 mg/dL EXTERNAL LAB Creatinine - External 1.40(H) 0.50 - 1.30 mg/dL EXTERNAL LAB Total Protein - External 6.6 6.0 - 8.2 g/dL EXTERNAL LAB Albumin - External 3.1(L) 3.4 - 48 g/dL EXTERNAL LAB Calcium - External 7.7(L) 8.8 - 10.0 mg/dL EXTERNAL LAB Total Bilirubin - External 0.4 0.0 - 1.0 mg/dL EXTERNAL LAB AST (SGOT) - External 23 0 - 37 U/L EXTERNAL LAB ALT (SGPT) - External 26 12 - 55 U/L EXTERNAL LAB Alkaline Phos - External 122(H) 39 - 117 U/L EXTERNAL LAB Potassium - External 5.1 EXTERNAL LAB Sodium - External 135 EXTERNAL LAB GFR(Others) - External 57 EXTERNAL LAB 07/14/2022 6:36 AM CDT Narrative EXTERNAL LAB - 07/15/2022 6:57 AM CDT Verified by Monie Siddiqui on 07/15/2022. us Edwin Del Toro MD CHEMISTRY ORDERABLES Final Result EXTERNAL LAB * (ABNORMAL) CBC with Differential (07/14/2022 6:36 AM CDT) White Blood Cells - External 12.05(H) 10(3)/mcL EXTERNAL LAB Red Blood Cells - External 6.56(H) 4.20 - 5.80 10(6)/mcL EXTERNAL LAB Hemoglobin - External 15.8 6 - 17.4 g/dL EXTERNAL LAB Hematocrit - External 52.1 39.8 - 52.2 % EXTERNAL LAB MCV - External 79.4 0 - 100.0 fL EXTERNAL LAB MCH - External 24.1(L) pg EXTERNAL LAB MCHC - External 30.3(L) g/dL EXTERNAL LAB Platelets - External 155 % EXTERNAL LAB Lymphocytes - External 32.0 % EXTERNAL LAB Basophils - External 0.7 % EXTERNAL LAB Neutrophils Abs (cells/uL) - External 6.64 1.40 - 7.30 cells/uL EXTERNAL LAB Lymph Absolute - External 3.86(H) 10(3)/mcL EXTERNAL LAB Hitchcock Absolute - External 1.20(H) 10(3)/mcL EXTERNAL LAB - External 0.23 0.00 - 0.30 10(3)/mcL EXTERNAL LAB Basophil Absolute - External 0.08 0.00 - 0.10 10(3)/mcL EXTERNAL LAB Neutrophils - External 55.1 % EXTERNAL LAB Eosinophils - External 1.9 % EXTERNAL LAB Monocytes - External 10 % EXTERNAL LAB 07/14/2022 6:36 AM CDT Narrative EXTERNAL LAB - 07/15/2022 6:57 AM CDT Verified by Monie Siddiqui on 07/15/2022. Edwin Del Toro MD HEMATOLOGY ORDERABLES Joana armenta Result EXTERNAL LAB documented in this encounter Visit Diagnoses Diagnosis Liver replaced by transplant ([facility]) Liver replaced by transplant Kidney replaced by transplant documented in this encounter Care Teams Beauty Shop Manager Relationship Specialty Start Date End Date Juan Laguerre MD [address] [facility] [address] [place] [id number] PCP - General Family Medicine 01/02/18 Aubrey Crabtree III, MD [address] [facility] [address] [place] [id number] Hematology and Medical Oncology 10/01/18 Jaki iNeves, PhD [address] [facility] [address] [place] [address] Genetic Counseling 11/27/18 documented as of this encounter
--- OUTSIDE RECORDS SUMMARY | 2025-08-09 09:34 | XMS_ITS | Encounter Summary ---
Author Organization [facility] Address [address] [place] [address] Care Team Providers Care Nonfarm Animal Caretaker Name Role Phone Juan Laguerre MD Primary Care Provider [phone] Bro AWAN MD, Aubrey Lane Unavailable [phone] Jaki Nieves PhD Unavailable [phone] Source Comments In the event that this is information that is protected by federal Confidentiality of Substance User Disorder Patient Records, 42 CFR Part 2 prohibits the unauthorized disclosure of these records.[facility] Encounter Details Date Type Department Care Team (Late Contact Info) Description 08/03/2019 Orders Only NM Transplant Surgery [address] [facility], [address] [place] [address] Renetta Henao Social History Tobacco Use Types [...] Office Visit [place] Transplant Surgery [address] [place] [address] Apt confirmed-EH documented as of this encounter Procedures Procedure Name Priority Date/Time Associated Diagnosis Comments CARBOHYDRATE ANTIGEN 19-9 (CA19-9) Routine 08/10/2019 9:39 AM CDT CBC AND DIFFERENTIAL Routine 08/10/2019 9:39 AM CDT COMPREHENSIVE METABOLIC PANEL Routine 08/10/2019 9:39 AM CDT documented in this encounter Results * Carbohydrate Antigen 19-9 (08/10/2019 9:39 AM CDT) Pathologist [facility] CA 19 9 - External 12 EXTERNAL LAB 08/10/2019 9:39 AM CDT Narrative EXTERNAL LAB - 10/15/2019 2:04 PM HALL WORKER Verified by Monie Siddiqui on 10/15/2019. us Cathleen Gallegos MD IMMUNOLOGY ORDERABLES Final Resu lt EXTERNAL LAB * (ABNORMAL) CBC with Differential (08/10/2019 9:39 AM CDT) Pathologist [facility] White Blood Cells - External 10.7(H) 4.0 - 10.0 uL EXTERNAL LAB Red Blood Cells - External 5.82(H) 4.53 - 5.08 EXTERNAL LAB Hemoglobin - External 15.1 EXTERNAL LAB Hematocrit - External 48.6 EXTERNAL LAB MCH - External 25.9 EXTERNAL LAB Platelets - External 167 EXTERNAL LAB Basophil Absolute - External 107 EXTERNAL LAB MCV - External 84 79 - 95 EXTERNAL LAB MCHC - External 31.1(L) 32.2 - 36.50 % EXTERNAL LAB RDW - External 16.5(H) 11.6 - 14.4 EXTERNAL LAB Neutrophils Abs (cells/uL) - External 5,554 cells/uL EXTERNAL LAB Lymph Absolute - External 2,[address] [place] Absolute - External 214 cells/uL EXTERNAL LAB - External 214 0 - 300 cells/uL EXTERNAL LAB Lymphocytes - External 28 19 - 40 % EXTERNAL LAB Monocytes - External 17(H) 4 - 12 % EXTERNAL LAB Basophils - External 1 0 - 1 % EXTERNAL LAB Neutrophils - External 52 EXTERNAL LAB Eosinophils - External 2 EXTERNAL LAB 08/10/2019 9:39 AM CDT Narrative EXTERNAL LAB - 10/15/2019 2:04 PM HALL WORKER Verified by Monie Siddiqui on 10/15/2019. us Cathleen Gallegos MD HEMATOLOGY ORDERABLES Final Resu lt EXTERNAL LAB * (ABNORMAL) Comp Metabolic Panel (08/10/2019 9:39 AM CDT) Glucose - External 312(H) 70 - 105 mg/dL EXTERNAL LAB Urea Nitrogen - External 26(H) 7 - 25 EXTERNAL LAB Creatinine - External 1.7(H) 0.7 - 1.3 mg/dL EXTERNAL LAB Sodium - External 131(L) 136 - 145 EXTERNAL LAB Potassium - External 5.0 3.5 - 5.1 mEq/L EXTERNAL LAB Chloride - External 98 98 - 107 mEq/L EXTERNAL LAB CO2 - External 26 EXTERNAL LAB Total Bilirubin - External 0.4 0.3 - 1.0 mg/dL EXTERNAL LAB Alkaline Phos - External 83 34 - 104 EXTERNAL LAB AST (SGOT) - External 18 13 - 39 EXTERNAL LAB ALT (SGPT) - External 16 7 - 52 U/L EXTERNAL LAB Total Protein - External 6.9 6.4 - 8.9 EXTERNAL LAB Albumin - External 3.8 3.5 - 5.7 EXTERNAL LAB Calcium - External 9.1 8.6 - 10.3 EXTERNAL LAB Anion Gap - External 12 0 - 15.0 EXTERNAL LAB GFR(Others) - External 41.5 EXTERNAL LAB GFR() - External 50.2 >0.0 ml/min EXTERNAL LAB 08/10/2019 9:39 AM CDT Narrative EXTERNAL LAB - 10/15/2019 2:04 PM HALL WORKER Verified by Monie Siddiqui on 10/15/2019. us [...] on 09/0109/01/2020 09/05/2020 09/25/2020 12: 31 AM HALL WORKER documented as of this encounter Care Teams Nonfarm Animal Caretaker Relationship Specialty Start Date End Date Juan Laguerre MD [address] [id number] PCP - General Family Medicine 01/02/18 Aubrey Crabtree III, MD [address] [address] Hematology and Medical Oncology 10/01/18 Jaki Nieves, PhD [address] [facility] [address] [place] [address] Genetic Counseling 11/27/18 documented as of this encounter
--- OUTSIDE RECORDS SUMMARY | 2025-08-09 09:34 | XMS_ITS ---
Author Organization [facility] Address [address] [place] [address] Care Team Providers Care Inspector Aide Name Role Phone Juan Laguerre MD Primary Care Provider [phone] Bro AWAN MD, Aubrey Lane Unavailable [phone] Jaki Nieves PhD Unavailable [phone] Active Problems Problem Noted Date Diagnosed Date [...] ethyl therapy instead of fenofibrate due to business applications analyst risks to the kidney and liver. Assessment & Plan (10/05/2022 11:46 AM HOTEL MAINTENANCE WORKER): Recommended more aggressive control. From a transplant and kidney perspective, can start high dose stain and icosapent ethyl combination therapy due to business applications analyst risks to the kidney and liver. Health [...] (12/22/2018): Added automatically from request for surgery [id number] Metabolic alkalosis 12/06/2018 Assessment & Plan (12/11/2018 6:22 PM HOTEL MAINTENANCE WORKER): Contraction from diuresis. Stable. Moderate dose of diuretics may be necessary and acceptable. Monitor daily serum bicarbonate. Aortic stenosis 12/05/2018 Assessment & Plan (12/07/2018 10:26 AM HOTEL MAINTENANCE WORKER): Cardiology management. Atrial fibrillation 12/04/2018 Assessment & Plan (12/07/2018 10:27 AM HOTEL MAINTENANCE WORKER): Cardiology management. Rate control may not be effective in the setting of hypotension. On systemic anticoagulation. 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 Continue to monitor. Anemia 11/27/2018 Assessment & Plan (12/09/2018 8:22 PM HOTEL MAINTENANCE WORKER): Stable. Below goal hemoglobin 10-11 g/dL, transfuse prn < 7 g/dL. Monitor daily. No role for recombinant erythropoietin in this acute setting. Assessment & Plan (11/27/2018 5:09 PM HOTEL MAINTENANCE WORKER): Low MCV, so likely iron deficient. Check iron studies with next lab draw locally and discuss with Medical Oncologist re treatment/further w/up. 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 Assessment & Plan (10/05/2022 11:44 AM HOTEL MAINTENANCE WORKER): Continue SMZ/TMP M/W/F. Assessment & Plan (08/09/2021 11:29 AM CDT): Continue SMZ/TMP M/W/F. Assessment & Plan (08/11/2020 11:00 PM CDT): Continue SMZ/TMP M/W/F. Assessment & Plan (07/29/2019 11:12 AM CDT): Continue SMZ/TMP M/W/F. Assessment & Plan (03/02/2019 1:28 PM CDT): Continue SMZ/TMP M/W/F. Assessment & Plan (12/31/2018 9:38 AM HOTEL MAINTENANCE WORKER): Continue SMZ/TMP M/W/F. Assessment & Plan (12/20/2018 4:25 PM HOTEL MAINTENANCE WORKER): Continue bactrim MWF for PJP prophylaxis Assessment & Plan (12/01/2018 5:32 PM HOTEL MAINTENANCE WORKER): Continue SMZ/TMP M/W/F. Assessment & Plan (11/04/2018 3:32 PM HOTEL MAINTENANCE WORKER): Continue Bactrim Saturday for prophylaxis Assessment & Plan (09/08/2018 1:19 PM HOTEL MAINTENANCE WORKER): Continue SMZ/TMP M/W/F. History of partial pancreatectomy [...] levels. Assessment & Plan (10/05/2022 11:43 AM HOTEL MAINTENANCE WORKER): Immunosuppressive drug therapy requiring intensive monitoring for [...] levels. Assessment & Plan (12/31/2018 9:38 AM HOTEL MAINTENANCE WORKER): Continue FK/MPA. Plan conversion back to everolimus once adequate recovery from TAVR. Monitor FK (goal 3-5) and MPA (goal 1.5-2.5) trough levels. Assessment & Plan (12/20/2018 4:24 PM HOTEL MAINTENANCE WORKER): Continue tacrolimus (low goal up to 3), myfortic 360 mg bid. Check tacrolimus trough levels. Assessment & Plan (12/10/2018 7:40 PM HOTEL MAINTENANCE WORKER): Continue FK/MPA. Consider conversion to sirolimus now recovered from surgery, once medically stable. Monitor daily FK (essentially at goal 4-6) and MPA (at goal 1.5-2.5) trough levels. Assessment & Plan (11/27/2018 5:07 PM HOTEL MAINTENANCE WORKER): Converted off everolimus to tacrolimus at the time of Whipples procedure. Continue MPA/FK. Monitor FK (goal 3-5) and MPA (goal 1.5-2.5) trough levels. Review possible conversion back to EVL in 6 months. Assessment & Plan (11/05/2018 5:14 PM HOTEL MAINTENANCE WORKER): Continue tacrolimus 1 mg twice daily with goal of 5-7 ng/mL for a 12-hour trough level. Continue mycophenolate sodium 360 mg twice daily Prednisone was recently stopped after surgery. Given new orthostatic symptoms could consider repeat cortisol stimulation testing Assessment & Plan (09/08/2018 1:18 PM HOTEL MAINTENANCE WORKER): Converted to FK/MMF/low dose prednisone regimen. Minimize [...] course. Assessment & Plan (12/31/2018 9:42 AM HOTEL MAINTENANCE WORKER): s/p Whipple procedure and splenectomy 08/2018 on adjuvant chemotherapy, which will be restarted soon. Plan conversion of FK back to everolimus once recovered from TAVR. Assessment & Plan (11/27/2018 5:12 PM HOTEL MAINTENANCE WORKER): s/p Whipple procedure and splenectomy in 08/2018. Now having chemotherapy. Assessment & Plan (09/08/2018 1:19 PM HOTEL MAINTENANCE WORKER): Pending pathology. Pancreatic duct dilated 07/02/2018 Overview (07/02/2018): Added automatically from request for surgery [id number] Vision loss of right eye 01/27/2018 Hypertension, essential 01/27/2018 Assessment & Plan (08/11/2020 11:02 PM CDT): Goal < 130/80, continue present regimen. Candidate for ACEi/ARB if blood pressure worsens. Assessment & Plan (12/31/2018 9:40 AM HOTEL MAINTENANCE WORKER): At goal < 130/80, continue present regimen. Assessment & Plan (12/11/2018 6:22 PM HOTEL MAINTENANCE WORKER): Maintain SBP > 100 if possible from a kidney standpoint to maximize recovery, presently at goal. Assessment & Plan (09/08/2018 1:19 PM HOTEL MAINTENANCE WORKER): At goal < 140/90, presently off therapy. Assessment & Plan (08/07/2018 5:57 PM CDT): At goal < 140/90, continue present regimen. Peripheral neuropathy 01/27/2018 Vitreous hemorrhage of right eye 01/27/2018 Chronic kidney disease, stage 3a 08/02/2015 Assessment & Plan (12/31/2018 9:39 AM HOTEL MAINTENANCE WORKER): Monitor calcium, phosphorus, PTH, vitamin D, and anemia labs. Assessment & Plan (12/01/2018 5:31 PM HOTEL MAINTENANCE WORKER): Outpatient monitoring of calcium, phosphorus, PTH, 25-OH vit D, and anemia. Assessment & Plan (09/08/2018 1:19 PM HOTEL MAINTENANCE WORKER): Stable. Outpatient monitoring of calcium, phosphorus, PTH, [...] screening. Assessment & Plan (10/05/2022 11:43 AM HOTEL MAINTENANCE WORKER): SLK. With chronic kidney disease stage 3a, [...] screening. Assessment & Plan (12/31/2018 9:37 AM HOTEL MAINTENANCE WORKER): Acute kidney failure resolved, back to baseline good function. Monitor serum creatinine, proteinuria, and BK viral load screening. Assessment & Plan (12/23/2018 5:48 PM HOTEL MAINTENANCE WORKER): Status post remote renal transplant - baseline renal function around 1.3 mg/dl - currently close to baseline Received IVF post contrast exposure, Assessment & Plan (12/01/2018 5:30 PM HOTEL MAINTENANCE WORKER): s/p SLK. With chronic kidney disease stage 3. Monitor daily serum creatinine. Assessment & Plan (11/27/2018 5:05 PM HOTEL MAINTENANCE WORKER): S/p SLT transplant. Good allograft function. Monitor serum creatinine, proteinuria, and BK viral load screening. Assessment & Plan (11/04/2018 3:31 PM HOTEL MAINTENANCE WORKER): Status post remote donor renal transplant simultaneous liver transplant 10 years ago. Mild acute kidney injury last week but now returned to baseline at 1.1 mg/dL. Continue to monitor renal function while in house Assessment & Plan (09/08/2018 1:17 PM HOTEL MAINTENANCE WORKER): Stable function after conversion to tacrolimus. Monitor serum creatinine, proteinuria, and BK viral load screening. Assessment & Plan (08/07/2018 5:54 PM CDT): Good allograft function. Monitor serum creatinine, proteinuria, and BK viral load screening. Liver transplant 01/02/2008 01/02/2008 Assessment & Plan (07/15/2024 2:20 PM CDT): Doing well overall. Recently moved to [place], [place]. Liver tests are normal. Following with Dr. Gallegos for kidney transplant. Following with cardiology, recently started statin for elevated cholesterol. 6 years from pancreatic cancer. Following with oncologist at [facility]. Follow up CT scheduled. Plan: Continue current immunosuppression Labs every month, recheck lipid panel at next labs CT Cardiac Calcium score with upcoming CT scan Assessment & Plan (07/31/2023 1:43 PM CDT): Missael evette 15 years ago. Now COVID ( from [...] LFTs. Assessment & Plan (09/08/2018 1:17 PM HOTEL MAINTENANCE WORKER): Continue follow up with Hepatology. Monitor liver transaminases. Type II diabetes mellitus with complication 04/2008 Assessment & Plan (07/13/2025 1:03 PM CDT): Uncontrolled. Reinforced importance of good glycemic control. Continue follow up with consolidator, started on SGLT2 inhibitor. Monitor fasting glucose and A1C. Assessment & Plan (07/16/2024 4:52 PM CDT): Uncontrolled. Reinforced importance of good glycemic control. Continue follow up with consolidator, to discuss SGLT2 inhibitors and GLP-1 agonists. Monitor fasting glucose and A1C. Assessment & Plan (07/31/2023 9:59 AM CDT): Uncontrolled. Reinforced importance of good glycemic control. Continue follow up with consolidator, to discuss SGLT2 inhibitors and GLP-1 agonists. Monitor fasting glucose and A1C. Assessment & Plan (10/05/2022 11:45 AM HOTEL MAINTENANCE WORKER): Uncontrolled. Reinforced importance of good glycemic control. Continue follow up with consolidator. Monitor fasting glucose and A1C. Assessment & Plan (08/09/2021 11:32 AM CDT): Continue follow up with consolidator. Monitor fingerstick and fasting glucose, and A1C. Assessment & Plan (08/11/2020 11:01 PM CDT): Uncontrolled. Recommended to increase insulin dose, follow up with PCP/consolidator. Monitor fingerstick and fasting glucose, and A1C. Assessment & Plan (07/31/2019 10:59 AM CDT): Recommended to increase insulin dose, follow up with PCP/consolidator. Monitor fingerstick and fasting glucose, and A1C. Assessment & Plan (12/31/2018 9:41 AM HOTEL MAINTENANCE WORKER): Reinforced importance of improved glycemic control, patient is scheduled to see his consolidator. Continue present regimen. Monitor fingerstick and fasting glucose, and A1C. Assessment & Plan (12/01/2018 5:33 PM HOTEL MAINTENANCE WORKER): Endocrinology consultation. Monitor fingerstick glucose and cover with ISS. Assessment & Plan (09/08/2018 1:20 PM HOTEL MAINTENANCE WORKER): Controlled. Resume outpatient monitoring by consolidator. Continue insulin regimen. Monitor fingerstick and fasting glucose, and A1C. Assessment & Plan (08/07/2018 5:56 PM CDT): Likely worsening glycemic control with conversion to FK. Continue insulin regimen. Monitor fingerstick and fasting glucose, and A1C. Current Treatment and Therapy Plans No current plan information found. Past Treatment and Therapy Plans No past plan information found. Lifetime Dose Tracking * Chemical Lifetime Dose Automatic Entry Manual Entr y Radiation 441 mGy 0 mGy 441 mGy Fluoro time 33.3 minutes 0 minutes 33.3 minutes Resolved Problems Problem Noted Date Diagnosed Date [...]
--- OUTSIDE RECORDS SUMMARY | 2025-08-09 09:34 | XMS_ITS | Encounter Summary ---
Author Organization [facility] Address [address] [place] [address] Care Team Providers Care Market Research Interviewer Name Role Phone Juan Laguerre MD Primary Care Provider [phone] Bro AWAN MD, Aubrey Lane Unavailable [phone] Jaki Nieves PhD Unavailable [phone] Source Comments In the event that this is information that is protected by federal Confidentiality of Substance User Disorder Patient Records, 42 CFR Part 2 prohibits the unauthorized disclosure of these records.[facility] Encounter Details Date Type Department Care Team (Late st Contact Info) Description 09/15/2018 Orders Only [place] Transplant Surgery [address] [facility] [place], [place] [address] Noe Keyes MD [address] [facility] [address], [place] [address] Social History Tobacco Use Types Packs/Day Years [...] [facility] [place] [address] Apt confirmed-EH documented as of this encounter Visit Diagnoses Diagnosis Kidney transplanted Kidney replaced by transplant documented in this encounter Additional Health Concerns Infection Onset Date Last Indicated Resolved Time COVID-19 Comment:Tested + on 09/0109/01/2020 09/05/2020 09/25/2020 12: 31 AM EARLY CHILDHOOD SPECIALIST documented as of this encounter Care Teams Market Research Interviewer Relationship Specialty Start Date End Date Juan Laguerre MD [address] [facility] [address] [place] [address] PCP - General Family Medicine 01/02/18 Aubrey Crabtree III, MD [address] [facility] [address] [place] [address] Hematology and Medical Oncology 10/01/18 Jaki Nieves, PhD [address] [facility] [address] [place] [address] Genetic Counseling 11/27/18 documented as of this encounter
--- OUTSIDE RECORDS SUMMARY | 2025-08-09 09:34 | XMS_ITS | Encounter Summary ---
Author Organization [facility] Address [address] [place] [address] Care Team Providers Care Sewing Demonstrator Name Role Phone Juan Laguerre MD Primary Care Provider [phone] Bro AWAN MD, Aubrey Lane Unavailable [phone] Jaki Nieves PhD Unavailable [phone] Source Comments In the event that this is information that is protected by federal Confidentiality of Substance User Disorder Patient Records, 42 CFR Part 2 prohibits the unauthorized disclosure of these records.[facility] Encounter Details Date Type Department Care Team (Late Contact Info) Description 08/28/2018 Orders Only [place] Transplant Surgery [address] [facility] [place] [address] Cara Cook RN Social History Tobacco Use [...] [address] [place] [address] Apt confirmed-EH documented as of this encounter Visit Diagnoses Diagnosis Kidney transplanted Kidney replaced by transplant documented in this encounter Additional Health Concerns Infection Onset Date Last Indicated Resolved Time COVID-19 Comment:Tested + on 09/0109/01/2020 09/05/2020 09/25/2020 12: 31 AM RN FAMILY documented as of this encounter Care Teams Sewing Demonstrator Relationship Specialty Start Date End Date Juan Laguerre MD [address] [facility] [address] [place], [place] [id number] PCP - General Family Medicine 01/02/18 Aubrey Crabtree III, MD [address] [facility] [address] [place] [address] Hematology and Medical Oncology 10/01/18 Jaki Nieves, PhD [address] [place], [place] [address] Genetic Counseling 11/27/18 documented as of this encounter
--- OUTSIDE RECORDS SUMMARY | 2025-08-09 09:34 | XMS_ITS | Encounter Summary ---
Author Organization [facility] Address [address] [place] [address] Care Team Providers Care Batch Trucker Name Role Phone Juan Laguerre MD Primary Care Provider [phone] Bro AWAN MD, Aubrey Lane Unavailable [phone] Jaki Nieves PhD Unavailable [phone] Source Comments In the event that this is information that is protected by federal Confidentiality of Substance User Disorder Patient Records, 42 CFR Part 2 prohibits the unauthorized disclosure of these records.[facility] Encounter Details Date Type Department Care Team (Late Contact Info) Description 02/13/2021 Orders Only [place] Transplant Surgery [address] [facility] [place] [address] Linette Almaguer RN Social History Tobacco Use [...] Office Visit NM Transplant Surgery [address] [facility] [place], [place] [address] Apt confirmed-EH documented as of this encounter Visit Diagnoses Diagnosis Lipid disorder Unspecified disorder of lipoid metabolism 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 transplant Vitamin D deficiency documented in this encounter Care Teams Batch Trucker Relationship Specialty Start Date End Date Juan Laguerre MD [address] [facility] [address] [place] [id number] PCP - General Family Medicine 01/02/18 Aubrey Crabtree III, MD [address] [address] Hematology and Medical Oncology 10/01/18 Jaki Nieves, PhD [address] [facility] [address] [place] [address] Genetic Counseling 11/27/18 documented as of this encounter
--- OUTSIDE RECORDS SUMMARY | 2025-08-09 09:34 | XMS_ITS | Encounter Summary ---
Author Organization [facility] Address [address] [place] [address] Phone Care Team Providers Care Insurance Professional Name Role Phone Juan Laguerre MD Primary Care Provider [phone] Rell Painting MD Unavailable [phone] Bro AWAN MD, Aubrey Ellis Unavailable [phone] Jez Denson MD Unavailable Cathleen Gallegos MD Unavailable Vikram Garza MD Unavailable [phone] Treva Edwards MD Unavailable [phone] Sanchez Bills DPM Unavailable [phone] Encounter Details Date Type Department Care Team (Late st Contact Info) Description 09/12/2021 Telephone [facility] OR [address] [place] [address] Ahsan Saucedo MD [address] [place] [address] DR HINES [address] [place] [address] Social History Tobacco Use Types Packs/Day Years [...] have Coronavirus / COVID-19? No / Unsure 08/15/2021 11:28 AM CDT documented as of this encounter Plan of Treatment Upcoming Encounters Date Type Department Care Team (Late st Contact Info) Description 08/10/2025 12:45 PM CDT Lab [facility] [address] [address] Lab, [facility]c [facility] 08/10/2025 1:00 PM CDT Ancillary Procedure [facility] [address] [address] 08/17/2025 9:00 AM CDT Office Visit [facility] [address] [address] Tyler Haile MD [address] [place] [id number] documented as of this encounter Visit Diagnoses Not on filedocumented in this encounter Additional Health Concerns Assessment Noted Time PHQ-9 Depression Total Score: 0 08/15/20 21 11:42 AM CDT documented as of this encounter Care Teams Insurance Professional Relationship Specialty Start Date End Date Juan Laguerre MD [address] [place] [address] [place] [address] PCP - General Family Medicine 10/05/16 Rell Painting MD [address] [facility] [address] [address] [place], [place] [phone] Consulting Physician General Surgery 10/22/18 Aubrey Crabtree III, MD [address] [address] Medical Oncologist Internal Medicine 11/06/18 Jez Denson MD [address] [facility] [address] Consulting Physician Cardiovascular Disease - Cardiology 01/19/19 Cathleen Gallegos MD [address] [place] [id number] Consulting Physician Nephrology 01/19/19 Vikram Garza MD [address] [place] [address] Consulting Physician Cardiovascular Disease - Cardiology 01/19/19 Treva Edwards MD [address] [place] [id number] Consulting Physician Internal Medicine 08/31/20 Sanchez Bills DPM [address] [facility] [address] [place] [address] Consulting Physician Podiatry 08/31/20 documented as of this encounter
--- OUTSIDE RECORDS SUMMARY | 2025-08-09 09:34 | XMS_ITS | Encounter Summary ---
Author Organization [facility] Address [address] [place] [address] Care Team Providers Care Yam Curer Name Role Phone Juan Laguerre MD Primary Care Provider [phone] Bro AWAN MD, Aubrey Lane Unavailable [phone] Jaki Nieves PhD Unavailable [phone] Source Comments In the event that this is information that is protected by federal Confidentiality of Substance User Disorder Patient Records, 42 CFR Part 2 prohibits the unauthorized disclosure of these records.[facility] Encounter Details Date Type Department Care Team (Late Contact Info) Description 09/12/2020 Orders Only [place] Transplant Surgery [address] [facility], [address]th [address] [place] [address] Linette Almaguer RN Social History Tobacco Use [...] [address] [place] [address] Apt confirmed-EH documented as of this encounter Visit Diagnoses Diagnosis 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 transplant documented in this encounter Additional Health Concerns Infection Onset Date Last Indicated Resolved Time COVID-19 Comment:Tested + on 09/0109/01/2020 09/05/2020 09/25/2020 12: 31 AM [employer]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
--- OUTSIDE RECORDS SUMMARY | 2025-08-09 09:34 | XMS_ITS | Encounter Summary ---
Author Organization [facility] Address [address] [place] [address] Care Team Providers Care Residential Specialist Name Role Phone Juan Laguerre MD Primary Care Provider [phone] Bro AWAN MD, Aubrey Lane Unavailable [phone] Jaki Nieves PhD Unavailable [phone] Source Comments In the event that this is information that is protected by federal Confidentiality of Substance User Disorder Patient Records, 42 CFR Part 2 prohibits the unauthorized disclosure of these records.[facility] Encounter Details Date Type Department Care Team (Late Contact Info) Description 08/01/2018 Procedure Pass [place] Gastroenterology [address] [facility], 4th [place] [address] Social History Tobacco Use Types Packs/Day Years [...] Care Team ([facility] Contact Info) Description 07/15/2026 1:00 PM CDT Office Visit [place] Transplant Surgery [address] 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 [address] [place] [address] Genetic Counseling 11/27/18 documented as of this encounter
--- OUTSIDE RECORDS SUMMARY | 2025-08-09 09:34 | XMS_ITS | Encounter Summary ---
Author Organization [facility] Address [address] [place] [address] Care Team Providers Care Varnish Maker Helper Name Role Phone Juan Laguerre MD Primary Care Provider [phone] Bro AWAN MD, Aubrey Lane Unavailable [phone] Jaki Nieves PhD Unavailable [phone] Source Comments In the event that this is information that is protected by federal Confidentiality of Substance User Disorder Patient Records, 42 CFR Part 2 prohibits the unauthorized disclosure of these records.[facility] Encounter Details Date Type Department Care Team (Late Contact Info) Description 08/12/2018 Procedure Pass NM Surgery [address], 5th [place] [address] Social History Tobacco Use Types Packs/Day Years [...] Upcoming Encounters Date Type Department Care Team ([facility] Contact Info) Description 07/15/2026 1:00 PM CDT Office Visit NM Transplant Surgery [address], 19th [address] [place] [address] Apt confirmed-EH documented as of this encounter Visit Diagnoses Not on filedocumented in this encounter Additional Health Concerns Infection Onset Date Last Indicated Resolved Time COVID-19 Comment:Tested + on 09/0109/01/2020 09/05/2020 09/25/2020 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
--- OUTSIDE RECORDS SUMMARY | 2025-08-09 09:34 | XMS_ITS | Encounter Summary ---
Author Organization [facility] Address [address] [place] [address] Care Team Providers Care Pulmonology Physician Name Role Phone Juan Laguerre MD Primary Care Provider [phone] Bro AWAN MD, Aubrey Lane Unavailable [phone] Jaki Nieves PhD Unavailable [phone] Source Comments In the event that this is information that is protected by federal Confidentiality of Substance User Disorder Patient Records, 42 CFR Part 2 prohibits the unauthorized disclosure of these records.[facility] Encounter Details Date Type Department Care Team (Late Contact Info) Description 12/05/2020 Orders Only NM Transplant Surgery [address] [facility], 19th Floor [address] [place] [address] Linette Almaguer RN Social History Tobacco Use [...] [address], [address] Floor [address] [place] [address] Apt confirmed-EH documented as of this encounter Procedures Procedure Name Priority Date/Time Associated Diagnosis Comments EVEROLIMUS LEVEL Routine 12/10/2020 6:34 AM LIFE ADVISOR URINALYSIS WITH MICROSCOPIC Routine 12/10/2020 6:34 AM LIFE ADVISOR CBC AND DIFFERENTIAL Routine 12/10/2020 6:34 AM LIFE ADVISOR HEPATIC FUNCTION PANEL Routine 12/10/2020 6:34 AM LIFE ADVISOR documented in this encounter Results * Everolimus Level (12/10/2020 6:34 AM LIFE ADVISOR) Everolimus Level - External 6.4 EXTERNAL LAB 12/10/2020 6:34 AM LIFE ADVISOR Narrative EXTERNAL LAB - 12/13/2020 1:53 PM LIFE ADVISOR Verified by Monie Siddiqui on 12/13/2020. us Cathleen Gallegos MD CHEMISTRY ORDERABLES Final Resul t EXTERNAL LAB * (ABNORMAL) Urinalysis with microscopic (12/10/2020 6:34 AM LIFE ADVISOR) Specific [place], Urine - External 1.010 1.003 - 1.035 EXTERNAL LAB UA pH - External 6.5(L) 50 - 80 EXTERNAL LAB UA Nitrate - External Negative [...] External 0-5 0-5, /hpf EXTERNAL LAB UA Leukocyte Esterase - External NEG EXTERNAL LAB 12/10/2020 6:34 AM LIFE ADVISOR Narrative EXTERNAL LAB - 12/10/2020 12:41 PM LIFE ADVISOR Verified by Monie Siddiqui on 12/10/2020. Cathleen Gallegos MD URINE ORDERABLES Final Result Performing Organization Address [facility] de Phone Number EXTERNAL LAB * (ABNORMAL) Hepatic function panel (12/10/2020 6:34 AM LIFE ADVISOR) Total Bilirubin - External 0.3 0.0 - 1.0 mg/dL EXTERNAL LAB Direct Bilirubin - External <0.1 0.0 - 0.3 mg/dL EXTERNAL LAB Alkaline Phos - External 102 39 - 117 U/L EXTERNAL LAB AST (SGOT) - External 17 0 - 37 U/L EXTERNAL LAB ALT (SGPT) - External 25 12 - 55 U/L EXTERNAL LAB Total Protein - External 7.2 6.2 - 8.4 g/dL EXTERNAL LAB Albumin - External 3.3(L) 5 - 5.0 g/dL EXTERNAL LAB 12/10/2020 6:34 AM LIFE ADVISOR Narrative EXTERNAL LAB - 12/10/2020 12:41 PM LIFE ADVISOR Verified by Monie Siddiqui on 12/10/2020. Cathleen Gallegos MD CHEMISTRY ORDERABLES Final Resul t Performing Organization Address [facility] de Phone Number EXTERNAL LAB * (ABNORMAL) CBC with Differential (12/10/2020 6:34 AM LIFE ADVISOR) White Blood Cells - External 9.71 10(3)/mcL EXTERNAL LAB Red Blood Cells - External 6.76(H) 10(6)/mcL EXTERNAL LAB Hemoglobin - External 16.3 6 - 17.4 g/dL EXTERNAL LAB Hematocrit - External 54.1(H) 39.8 - 52.2 % EXTERNAL LAB MCV - External 80 fL EXTERNAL LAB MCH - External 24.1(L) pg EXTERNAL LAB MCHC - External 30.1(L) 31.5 - 36.0 g/dL EXTERNAL LAB Platelets - External 175 140 - 445 10(3)/mcL EXTERNAL LAB RDW - External 19.9(H) 12.0 - 15.0 % EXTERNAL LAB Neutrophils - External 50 % EXTERNAL LAB Lymphocytes - External 34.5 % EXTERNAL LAB Monocytes - External 11.7 % EXTERNAL LAB Eosinophils - External 2.3 % EXTERNAL LAB Neutrophils Abs (cells/uL) - External 4.85 1.40 - 7.30 cells/uL EXTERNAL LAB Lymph Absolute - External 3.35(H) 10(3)/mcL EXTERNAL LAB [place] Absolute - External 1.14(H) 0.10 - 0.80 10(3)/mcL EXTERNAL LAB - External 0.22 0.00 - 0.30 10(3)/mcL EXTERNAL LAB Basophil Absolute - External 0.13(H) 0.00 - 0 10(3)/mcL EXTERNAL LAB Basophils - External 1.3 EXTERNAL LAB 12/10/2020 6:34 AM LIFE ADVISOR Narrative EXTERNAL LAB - 12/10/2020 12:41 PM LIFE ADVISOR Verified by Monie Siddiqui on 12/10/2020. 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
--- OUTSIDE RECORDS SUMMARY | 2025-08-09 09:34 | XMS_ITS | Encounter Summary ---
Author Organization [facility] Address [address] [place] [address] Care Team Providers Care Gastrointestinal Technician Name Role Phone Juan Laguerre MD Primary Care Provider [phone] Bro AWAN MD, Aubrey Lane Unavailable [phone] Jaki Nieves PhD Unavailable [phone] Source Comments In the event that this is information that is protected by federal Confidentiality of Substance User Disorder Patient Records, 42 CFR Part 2 prohibits the unauthorized disclosure of these records.[facility] Encounter Details Date Type Department Care Team (Late Contact Info) Description 01/30/2021 Orders Only NM Transplant Surgery [address] [facility], 19th Floor [address] [place] [address] Linette Almaguer RN Social History Tobacco Use [...] [address], [address] [place] [address] Apt confirmed-EH documented as of this encounter Procedures Procedure Name Priority Date/Time Associated Diagnosis Comments CBC AND DIFFERENTIAL Routine 02/06/2021 9:38 AM CDT 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) CARBOHYDRATE ANTIGEN 19-9 (CA19-9) Routine 02/06/2021 12:00 AM CDT URINALYSIS WITH MICROSCOPIC Routine 02/06/2021 12:00 AM CDT VITAMIN B12 Routine 02/06/2021 12:00 AM CDT HEPATIC FUNCTION PANEL Routine 02/06/2021 12:00 AM CDT documented in this encounter Results * (ABNORMAL) CBC with Differential (02/06/2021 9:38 AM CDT) White Blood Cells - External 9.8 4.0 - 10.0 10*3/uL EXTERNAL LAB Hemoglobin - External 15.8 13.7 - 17.5 g/dL EXTERNAL LAB Hematocrit - External 52.6(H) 40.1 - 51.0 % EXTERNAL LAB Platelets - External 197 163 - 369 10*3/uL EXTERNAL LAB MCV - External 80 79 - 95 fL EXTERNAL LAB MCH - External 23.9(L) 25.6 - 32.2 pg EXTERNAL LAB RDW - External 19.2 11.6 - 144 % EXTERNAL LAB Neutrophils - External 51.2 36.0 - 66.0 % EXTERNAL LAB Monocytes - External 12.3(H) 4.1 - 12.1 % EXTERNAL LAB Eosinophils - External 1.2 0.0 - 3.5 % EXTERNAL LAB Basophils - External 1.3(H) 0.0 - 1.0 % EXTERNAL LAB Lymph Absolute - External 3.3 0.8 - 40 10*3/uL EXTERNAL LAB [place] Absolute - External 1.2 0.2 - 1.2 10*3/uL EXTERNAL LAB - External 0.1 0.0 - 0.4 10*3/uL EXTERNAL LAB Basophil Absolute - External 0.1 0.0 - 0.1 10*3/uL EXTERNAL LAB MCHC - External 30 EXTERNAL LAB Lymphocytes - External 33.7 EXTERNAL LAB Neutrophils Abs (cells/uL) - External 5.0 cells/uL EXTERNAL LAB Red Blood Cells - External 6.61 EXTERNAL LAB Blood VEIN SPECIMEN / Unknown 02/06/2021 9:38 AM CDT Narrative EXTERNAL LAB - 02/08/2021 6:07 AM CDT Verified by Monie Siddiqui on 02/08/2021. Cathleen Gallegos MD HEMATOLOGY ORDERABLES Final Resu lt Performing Organization Address City/[facility]/ZIP Co de Phone Number EXTERNAL LAB * Carbohydrate Antigen 19-9 (02/06/2021 12:00 AM CDT) CA 19 9 - External 10 EXTERNAL LAB 02/06/2021 Narrative EXTERNAL LAB - 02/20/2021 2:43 PM CDT Verified by Monie Siddiqui on 02/17/2021. Rell Painting MD IMMUNOLOGY ORDERABLES Final Result Performing Organization Address [facility] Co de Phone Number EXTERNAL LAB * Vitamin B12 (02/06/2021 12:00 AM CDT) Pathologist [facility] Vitamin B12 - External 1,388 EXTERNAL LAB 02/06/2021 Narrative EXTERNAL LAB - 02/20/2021 2:43 PM CDT Verified by Monie Siddiqui on 02/17/2021. Rell Painting MD CHEMISTRY ORDERABLES Final Result Performing Organization Address City/[facility]/ZIP Co de Phone Number EXTERNAL LAB * (ABNORMAL) Hepatic function panel (02/06/2021 12:00 AM CDT) Direct Bilirubin - External 0.07 EXTERNAL LAB Total Bilirubin - External 0.4 EXTERNAL LAB Alkaline Phos - External 81(L) EXTERNAL LAB AST (SGOT) - External 15 EXTERNAL LAB ALT (SGPT) - External 16 EXTERNAL LAB Total Protein - External 7.0 EXTERNAL LAB Albumin - External 4.0 EXTERNAL LAB 02/06/2021 Narrative EXTERNAL LAB - 02/20/2021 2:43 PM CDT Verified by Monie Siddiqui on 02/17/2021. Rell Painting MD CHEMISTRY ORDERABLES Final Result Performing Organization Address City/[facility] Co de Phone Number EXTERNAL LAB * Urinalysis with microscopic (02/06/2021 12:00 AM CDT) UA Color - External YELLOW EXTERNAL LAB UA Appearance - External CLEAR EXTERNAL LAB UA Glucose - External 3+ EXTERNAL LAB UA Bilirubin - External NEG EXTERNAL LAB UA Ketones - External NEG EXTERNAL LAB Specific [place], Urine - External 1.020 EXTERNAL LAB UA Blood - External NEG EXTERNAL LAB UA pH - External 6.0 EXTERNAL LAB UA Protein - External NEG EXTERNAL LAB UA Urobilinogen - External 0.2 EXTERNAL LAB UA Nitrate - External NEG EXTERNAL LAB UA Leukocyte Esterase - External NEG EXTERNAL LAB UA Epithelial Casts - External NONE EXTERNAL LAB UA Bacteria - External NONE EXTERNAL LAB UA RBC - External 0-2 EXTERNAL LAB 02/06/2021 Narrative EXTERNAL LAB - 02/20/2021 2:43 PM CDT Verified by Monie Siddiqui on 02/17/2021. 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
--- OUTSIDE RECORDS SUMMARY | 2025-08-09 09:34 | XMS_ITS | Encounter Summary ---
Author Organization [facility] Address [address] [place] [address] Care Team Providers Care Public Safety Telecommunicator Name Role Phone Juan Laguerre MD Primary Care Provider [phone] Bro AWAN MD, Aubrey Lane Unavailable [phone] Jaki Nieves PhD Unavailable [phone] Source Comments In the event that this is information that is protected by federal Confidentiality of Substance User Disorder Patient Records, 42 CFR Part 2 prohibits the unauthorized disclosure of these records.[facility] Encounter Details Date Type Department Care Team (Late Contact Info) Description 08/31/2019 Orders Only NM Transplant Surgery [address] [facility], 19th Floor [address] [place] [address] Renetta Henao Social History Tobacco Use Types [...] Office Visit NM Transplant Surgery [address] [facility], 19th Floor [address] [place] [address] Apt confirmed-EH documented as of this encounter [...] on 09/0109/01/2020 09/05/2020 09/25/2020 12: 31 AM 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
--- OUTSIDE RECORDS SUMMARY | 2025-08-09 09:34 | XMS_ITS | Encounter Summary ---
Author Organization [facility] Address [address] [place] [address] Care Team Providers Care Sewing Inspector Name Role Phone Juan Laguerre MD Primary Care Provider [phone] Bro AWAN MD, Aubrey Lane Unavailable [phone] Jaki Nieves PhD Unavailable [phone] Source Comments In the event that this is information that is protected by federal Confidentiality of Substance User Disorder Patient Records, 42 CFR Part 2 prohibits the unauthorized disclosure of these records.[facility] Encounter Details Date Type Department Care Team (Late st Contact Info) Description 09/01/2018 Orders Only NM Transplant Surgery [address] [facility], 19th Floor [address] [place], [place] [address] Noe Keyes MD [address] 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 [address] [place] [address] Genetic Counseling 11/27/18 documented as of this encounter
--- OUTSIDE RECORDS SUMMARY | 2025-08-09 09:34 | XMS_ITS | Encounter Summary ---
Author Organization [facility] Address [address] [place] [address] Care Team Providers Care Sales And Marketing Coordinator Name Role Phone Juan Laguerre MD Primary Care Provider [phone] Bro AWAN MD, Aubrey Lane Unavailable [phone] Jaki Nieves PhD Unavailable [phone] Source Comments In the event that this is information that is protected by federal Confidentiality of Substance User Disorder Patient Records, 42 CFR Part 2 prohibits the unauthorized disclosure of these records.[facility] Encounter Details Date Type Department Care Team (Late Contact Info) Description 09/12/2020 Orders Only NM Transplant Surgery [address] 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
--- OUTSIDE RECORDS SUMMARY | 2025-08-09 09:34 | XMS_ITS | Encounter Summary ---
Author Organization [facility] Address [address] [place] [address] Care Team Providers Care Senior Scientist Name Role Phone Juan Laguerre MD Primary Care Provider [phone] Bro AWAN MD, Aubrey Lane Unavailable [phone] Jaki Nieves PhD Unavailable [phone] Source Comments In the event that this is information that is protected by federal Confidentiality of Substance User Disorder Patient Records, 42 CFR Part 2 prohibits the unauthorized disclosure of these records.[facility] Encounter Details Date Type Department Care Team (Late Contact Info) Description 11/07/2020 Orders Only NM Transplant Surgery [address] [facility], 19th Floor [address] [place] [address] Linette Almaguer RN Social History Tobacco Use [...] [facility], 19th Floor [address] [place] [address] Apt confirmed-EH documented as of this encounter Visit Diagnoses Diagnosis 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 transplant documented in this encounter Care Teams Senior Scientist Relationship Specialty Start Date End Date Juan Laguerre MD [address] [facility] [address] [place] [address] PCP - General Family Medicine 01/02/18 Aubrey Crabtree III, MD [address] [facility] [address] [place] [address] Hematology and Medical Oncology 10/01/18 Jaki Nieves, PhD [address] [facility] [address] [place] [address] Genetic Counseling 11/27/18 documented as of this encounter
--- OUTSIDE RECORDS SUMMARY | 2025-08-09 09:34 | XMS_ITS | Encounter Summary ---
Author Organization [facility] Address [address] [place] [address] Care Team Providers Care Hot Metal Car Operator Name Role Phone Juan Laguerre MD Primary Care Provider [phone] Bro AWAN MD, Aubrey Lane Unavailable [phone] Jaki Nieves PhD Unavailable [phone] Source Comments In the event that this is information that is protected by federal Confidentiality of Substance User Disorder Patient Records, 42 CFR Part 2 prohibits the unauthorized disclosure of these records.[facility] Encounter Details Date Type Department Care Team ([facility] Contact Info) Description 07/14/2025 Results Follow-Up NM Transplant Surgery [address] [facility], 19th [address] [place] [address] Joycelyn Quintero RN Social History Tobacco Use Types Packs/Day [...] Care Team ([facility] Contact Info) Description 07/15/2026 1:00 PM CDT Office Visit [place] Transplant Surgery [address], [address] [place], [place] [address] Apt confirmed-EH documented as of this encounter Visit Diagnoses Not on filedocumented in this encounter Care Teams Hot Metal Car Operator Relationship Specialty Start Date End Date Juan Laguerre MD [address] [facility] [address], [place] [phone] PCP - General Family Medicine 01/02/18 Aubrey Crabtree III, MD [address] [facility] [address] [place] [address] Hematology and Medical Oncology 10/01/18 Jaki Nieves, PhD [address] [facility] [address] [place], [place] [address] Genetic Counseling 11/27/18 documented as of this encounter
--- OUTSIDE RECORDS SUMMARY | 2025-08-09 09:34 | XMS_ITS | Encounter Summary ---
Author Organization [facility] Address [address] [place] [address] Care Team Providers Care Wholesale Parts Salesperson Name Role Phone Juan Laguerre MD Primary Care Provider [phone] Bro AWAN MD, Aubrey Lane Unavailable [phone] Jaki Nieves PhD Unavailable [phone] Source Comments In the event that this is information that is protected by federal Confidentiality of Substance User Disorder Patient Records, 42 CFR Part 2 prohibits the unauthorized disclosure of these records.[facility] Reason for Referral * MRI/CAT Scan (Routine) - Closed Specialty Diagnoses / Procedures Referred By Contac t Referred To Contact Radiology Diagnoses Acute pancreatitis, unspecified complication status, unspecified pancreatitis type Procedures CT Chest with Contrast CT Chest without Contrast Rell Painting MD Phone: tel: fax: Referral ID Status Reason Start Date Expiration Date Visits Re quested Visits Authorized [id number] Closed 07/14/2018 10/13/2019 1 1 Encounter Details Date Type Department Care Team (Latest Contact Info) Description 07/24/2018 Ancillary Orders [place] Transplant Surgery [address] [facility] [address], [address] [place] [address] Rell Painting MD [address] [facility] [address] [place] [address] Acute pancreatitis, unspecified complication status, unspecified pancreatitis type Social History Tobacco Use Types Packs/Day Years [...] Surgery [address] [facility] [address], [address] [place] [address] Apt confirmed-EH documented as of this encounter Results * CT Chest with Contrast (07/24/2018 8:38 AM CDT) Anatomical Region Laterality Modality Chest Computed Tomogra phy 07/24/2018 2:00 PM CDT Narrative 07/24/2018 2:53 PM CDT PROCEDURE:CT PANCREAS TRIPLE PHASE, CT CHEST W CONTRAST HISTORY: Pancreatic adenocarcinoma. 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 TECHNIQUE:Initial pre-contrast helical abdominal CT was performed. Subsequent post-contrast helical abdominal (pancreatic and portal venous phase) and pelvic (venous phase) CT imaging was obtained. Postcontrast helical CT imaging of the chest was also performed. Negative oral contrast was administered. COMPARISON: MR dated 06/27/[address] CHEST: Support devices: None. Lower cervical region: Unremarkable. Lymph nodes: There is no thoracic adenopathy. Subcentimeter mediastinal lymph nodes are present. Calcified mediastinal and hilar lymph nodes are present, likely from antecedent granulomatous exposure. Pleural spaces/diaphragm:There is no pleural effusion. Heart and great vessels:The heart is normal in size. The thoracic aorta and main pulmonary artery are normal in caliber. Calcific coronary and thoracic aortic atherosclerosis is present. Lungs: Central airways are patent. There is subpleural reticulation involving the upper lobes and lower lobes with associated mild bronchiectasis. There is no pulmonary consolidation or suspicious pulmonary nodules. Upper GI tract: The esophagus is grossly unremarkable. Body wall:Degenerative changes are seen in the thoracic spine. FINDINGS CT TRIPHASIC PANCREAS/CT PELVIS: Pre-contrast:On the pre-contrast sequence no pancreatic calcifications are seen. Ingested radiodense tablet is seen in the gastric antrum and later in the duodenum. Post-contrast: Pancreas: Pancreas demonstrates homogeneous enhancement. There is mild stable focal pancreatic ductal dilatation within the pancreatic body and tail, measuring up to 5 mm (4/149 and 7/72). There is associated mild pancreatic atrophy in the body and tail. The pancreatic duct in the pancreatic head and neck are normal in caliber. There are no peripancreatic fluid collections or peripancreatic fat stranding. The splenic vein appears patent. No discrete pancreatic lesions are present. Liver, spleen and biliary tree: Liver: Transplant liver is unremarkable. There is a subcentimeter lesion at the hepatic periphery (31) too small to fully characterize. Hepatic and portal veins are patent. There is no intrahepatic biliary ductal dilatation. Spleen: unremarkable The patient is post cholecystectomy. There is no biliary ductal dilatation. Adrenal glands: Unremarkable. Kidneys: There are bilateral symmetric nephrograms without hydronephrosis. Kidneys appear atrophic. A cyst is seen in the lateral left kidney (). Nonobstructing renal calculi are seen in both kidneys, right greater than left. There is perinephric fat stranding. Transplant kidney seen in the left iliac fossa which demonstrates abnormal enhancement. Punctate stone is seen in the lower pole (193). There is no hydronephrosis. There is no perinephric fat stranding or fluid. Subcentimeter renal cortical lesions are seen in the transplant kidney which are too small to fully characterize. Lymph nodes: Abdomen: There is no abdominal adenopathy. Pelvis: There is no pelvic adenopathy. Vasculature: There is no abdominal aortic aneurysm. Calcific aortoiliac atherosclerosis. Peritoneum/mesentery/omentum: There is no free fluid or free air. GI tract: There is no bowel obstruction. Pelvic urogenital structures:The bladder is moderately distended and grossly unremarkable. The prostate is present. Body wall: There are degenerative changes in the lower lumbar spine. IMPRESSION: Stable dilated pancreatic duct with abrupt cut off in the region of pancreatic neck. No discrete mass is identified to correlate with the patient's biopsy EUS of 07/03/2018 demonstrating infiltrating adenocarcinoma. No evidence of metastatic disease in the abdomen or pelvis. Subpleural reticulation with associated bronchiectasis may represent fibrosis. No suspicious pulmonary nodules. FINAL REPORT Attending Radiologist: Aj Duke MD Date Signed Off: 07/24/2018 14:53 Procedure Note Aj Duke MD - 07/24/2018 PROCEDURE:CT PANCREAS TRIPLE PHASE, CT CHEST W CONTRAST HISTORY: Pancreatic adenocarcinoma. EUS on 07/03/2018 demonstratedinfiltrating adenocarcinoma, ductal type, grade 2-3 with desmoplasia. TECHNIQUE:Initial pre-contrast helical abdominal CT was performed.Subsequent post-contrast helical abdominal (pancreatic and portal venousphase) and pelvic (venous phase) CT imaging was obtained. Postcontrasthelical CT imaging of the chest was also performed. Negative oral contrastwas administered. COMPARISON: MR dated 06/27/[address] CHEST: Support devices: None. Lower cervical region: Unremarkable. Lymph nodes: There is no thoracic adenopathy. Subcentimeter mediastinallymph nodes are present. Calcified mediastinal and hilar lymph nodes arepresent, likely from antecedent granulomatous exposure. Pleural spaces/diaphragm:There is no pleural effusion. Heart and great vessels:The heart is normal in size. The thoracic aortaand main pulmonary artery are normal in caliber. Calcific coronary andthoracic aortic atherosclerosis is present. Lungs: Central airways are patent. There is subpleural reticulationinvolving the upper lobes and lower lobes with associated mildbronchiectasis. There is no pulmonary consolidation or suspiciouspulmonary nodules. Upper GI tract: The esophagus is grossly unremarkable. Body wall:Degenerative changes are seen in the thoracic spine. FINDINGS CT TRIPHASIC PANCREAS/CT PELVIS: Pre-contrast:On the pre-contrast sequence no pancreatic calcifications areseen. Ingested radiodense tablet is seen in the gastric antrum and laterin the duodenum. Post-contrast: Pancreas: Pancreas demonstrates homogeneous enhancement. There is mildstable focal pancreatic ductal dilatation within the pancreatic body andtail, measuring up to 5 mm (4/149 and 7/72). There is associated mildpancreatic atrophy in the body and tail. The pancreatic duct in thepancreatic head and neck are normal in caliber. There are noperipancreatic fluid collections or peripancreatic fat stranding. Thesplenic vein appears patent. No discrete pancreatic lesions are present. Liver, spleen and biliary tree: Liver: Transplant liver is unremarkable. There is a subcentimeter lesionat the hepatic periphery (11/31) too small to fully characterize. Hepaticand portal veins are patent. There is no intrahepatic biliary ductaldilatation. Spleen: unremarkable The patient is post cholecystectomy. There is no biliary ductaldilatation. Adrenal glands: Unremarkable. Kidneys: There are bilateral symmetric nephrograms withouthydronephrosis. Kidneys appear atrophic. A cyst is seen in the lateralleft kidney (). Nonobstructing renal calculi are seen in bothkidneys, right greater than left. There is perinephric fat stranding.Transplant kidney seen in the left iliac fossa which demonstrates abnormalenhancement. Punctate stone is seen in the lower pole (193). There isno hydronephrosis. There is no perinephric fat stranding or fluid.Subcentimeter renal cortical lesions are seen in the transplant kidneywhich are too small to fully characterize. Lymph nodes: Abdomen: There is no abdominal adenopathy. Pelvis: There is no pelvic adenopathy. Vasculature: There is no abdominal aortic aneurysm. Calcific aortoiliacatherosclerosis. Peritoneum/mesentery/omentum: There is no free fluid or free air. GI tract: There is no bowel obstruction. Pelvic urogenital structures:The bladder is moderately distended andgrossly unremarkable. The prostate is present. Body wall: There are degenerative changes in the lower lumbar spine. IMPRESSION: Stable dilated pancreatic duct with abrupt cut off in the region ofpancreatic neck. No discrete mass is identified to correlate with thepatient's biopsy EUS of 07/03/2018 demonstrating infiltratingadenocarcinoma. No evidence of metastatic disease in the abdomen or pelvis. Subpleural reticulation with associated bronchiectasis may representfibrosis. No suspicious pulmonary nodules. FINAL REPORT Attending Radiologist: Aj Duke MD Date Signed Off: 07/24/2018 14:53 us Rell Painting MD IMG CT ORDERABLES Final Res ult documented in this encounter Visit Diagnoses Diagnosis Acute pancreatitis, unspecified complication status, unspecified pancreatitis type Pancreatic adenocarcinoma (CMS-HCC) Malignant neoplasm of pancreas, part unspecified Acute pancreatitis, unspecified complication status, unspecified pancreatitis type documented in this encounter Additional Health Concerns Infection Onset Date Last Indicated Resolved Time COVID-19 Comment:Tested + on 09/0109/01/2020 09/05/2020 09/25/2020 12: 31 AM FIBER OPTICS SUPERVISOR documented as of this encounter Care Teams Wholesale Parts Salesperson Relationship Specialty Start Date End Date Juan Laguerre MD [address] [facility] [address] [place] [address] PCP - General Family Medicine 01/02/18 Aubrey Crabtree III, MD [address] [facility] [address] [place] [address] Hematology and Medical Oncology 10/01/18 Jaki Nieves, PhD [address] [facility] [address] [place] [address] Genetic Counseling 11/27/18 documented as of this encounter
--- OUTSIDE RECORDS SUMMARY | 2025-08-09 09:34 | XMS_ITS | Encounter Summary ---
Author Organization [facility] Address [address] [place] [address] Care Team Providers Care Bottom Liquor Attendant Name Role Phone Juan Laguerre MD Primary Care Provider [phone] Bro AWAN MD, Aubrey Lane Unavailable [phone] Jaki Nieves PhD Unavailable [phone] Source Comments In the event that this is information that is protected by federal Confidentiality of Substance User Disorder Patient Records, 42 CFR Part 2 prohibits the unauthorized disclosure of these records.[facility] Encounter Details Date Type Department Care Team (Late Contact Info) Description 10/10/2020 Orders Only NM Transplant Surgery [address] [facility], 19th Floor [address] [place] [address] Vivi Ponce Social History Tobacco Use Types [...] [facility], 19th Floor [address] [place], [place] [address] Apt confirmed-EH documented as of this encounter Visit Diagnoses Diagnosis 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 transplant documented in this encounter Care Teams Bottom Liquor Attendant Relationship Specialty Start Date End Date Juan Laguerre MD [address] [facility] [address] [place] [address] PCP - General Family Medicine 01/02/18 Aubrey Crabtree III, MD [address] [facility] [address] [place] [address] Hematology and Medical Oncology 10/01/18 Jaki Nieves, PhD [address] [facility] [address] [place] [address] Genetic Counseling 11/27/18 documented as of this encounter
--- OUTSIDE RECORDS SUMMARY | 2025-08-09 09:34 | XMS_ITS | Encounter Summary ---
Author Organization [facility] Address [address] [place] [address] Care Team Providers Care Computer Repair Instructor Name Role Phone Juan Laguerre MD Primary Care Provider [phone] Bro AWAN MD, Aubrey Lane Unavailable [phone] Jaki Nieves PhD Unavailable [phone] Source Comments In the event that this is information that is protected by federal Confidentiality of Substance User Disorder Patient Records, 42 CFR Part 2 prohibits the unauthorized disclosure of these records.[facility] Encounter Details Date Type Department Care Team (Late Contact Info) Description 01/02/2021 Orders Only NM Transplant Surgery [address] [facility], 19th [address] [place] [address] Linette Almaguer RN Social History Tobacco Use [...] [address], [address] [place] [address] Apt confirmed-EH documented as of this encounter Procedures Procedure Name Priority Date/Time Associated Diagnosis Comments PTH, INTACT Routine 01/07/2021 6:48 AM LAW LIBRARIAN VITAMIN D 25-HYDROXY Routine 01/07/2021 6:48 AM LAW LIBRARIAN LIPID PANEL (AMA) W/LDL CALC Routine 01/07/2021 6:48 AM LAW LIBRARIAN documented in this encounter Results * Vitamin D 25-Hydroxy (01/07/2021 6:48 AM LAW LIBRARIAN) Vitamin D, 25-Hydroxy, Total - External 25 ng/mL EXTERNAL LAB 01/07/2021 6:48 AM LAW LIBRARIAN Narrative EXTERNAL LAB - 01/07/2021 12:33 PM LAW LIBRARIAN Verified by Monie Siddiqui on 01/07/2021. us Cathleen Gallegos MD CHEMISTRY ORDERABLES Final Resul t EXTERNAL LAB * (ABNORMAL) PTH,Intact (01/07/2021 6:48 AM LAW LIBRARIAN) PTH, Intact - External 95(H) 14 - 72 pg/mL EXTERNAL LAB 01/07/2021 6:48 AM LAW LIBRARIAN Narrative EXTERNAL LAB - 01/07/2021 12:33 PM LAW LIBRARIAN Verified by Monie Siddiqui on 01/07/2021. us Cathleen Gallegos MD CHEMISTRY ORDERABLES Final Resul t EXTERNAL LAB * (ABNORMAL) Lipid Panel(AMA) w/LDL Calculated (01/07/2021 6:48 AM LAW LIBRARIAN) Total Cholesterol - External 249(H) 0 - 199 mg/dL EXTERNAL LAB HDL Cholesterol - External 39(L) 40 - 100 mg/dL EXTERNAL LAB Cholesterol LDL Direct - External 136(H) <130 mg/dL EXTERNAL LAB Triglycerides - External 371 EXTERNAL LAB 01/07/2021 6:48 AM LAW LIBRARIAN Narrative EXTERNAL LAB - 01/07/2021 12:33 PM LAW LIBRARIAN Verified by Monie Siddiqui on 01/07/2021. us Cathleen Gallegos MD CHEMISTRY ORDERABLES Final Resul t EXTERNAL LAB documented in this encounter Visit Diagnoses Diagnosis 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 transplant documented in this encounter Care Teams Computer Repair Instructor Relationship Specialty Start Date End Date Juan Laguerre MD [address] [address] PCP - General Family Medicine 01/02/18 Aubrey Crabtree III, MD [address] [facility] [address] [place] [id number] Hematology and Medical Oncology 10/01/18 Jaki Nieves, PhD [address] [facility] [address] [place] [address] Genetic Counseling 11/27/18 documented as of this encounter
--- OUTSIDE RECORDS SUMMARY | 2025-08-09 09:34 | XMS_ITS | Encounter Summary ---
Author Organization [facility] Address [address] [place] [address] Phone Care Team Providers Care Staff Weapons Officer Name Role Phone Juan Laguerre MD Primary Care Provider [phone] Rell Painting MD Unavailable [phone] Bro AWAN MD, Aubrey Ellis Unavailable [phone] Jez Denson MD Unavailable Cathleen Gallegos MD Unavailable Vikram Garza MD Unavailable [phone] Treva Edwards MD Unavailable [phone] Sanchez Bills DPM Unavailable [phone] Encounter Details Date Type Department Care Team (Latest Contact Info) Description 01/03/2022 Transcribe Orders [facility] Laboratory Services [address] [place] [address] Edwin Del Toro MD [address] [facility] [address] [place] [address] Liver replaced by transplant (HCC) (Primary Dx); Kidney replaced by transplant Social History Tobacco Use Types Packs/Day Years [...] have Coronavirus / COVID-19? 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 documented as of this encounter Plan of Treatment Upcoming Encounters Date Type Department Care Team (Late st Contact Info) Description 08/10/2025 12:45 PM CDT Lab [facility] [address] [address] Lab, [facility] 08/10/2025 1:00 PM CDT Ancillary Procedure [facility] [address] [address] 08/17/2025 9:00 AM CDT Office Visit [facility] [address] [address] Tyler Haile MD [address] [place] [address] documented as of this encounter Visit Diagnoses Diagnosis Liver replaced by transplant- Primary Kidney replaced by transplant documented in this encounter Additional Health Concerns Assessment Noted Time PHQ-9 Depression Total Score: 0 08/15/20 21 11:42 AM CDT documented as of this encounter Care Teams Staff Weapons Officer Relationship Specialty Start Date End Date Juan Laguerre MD [address] [place] [address] [place] [address] PCP - General Family Medicine 10/05/16 Rell Painting MD [address] [place] [address] Consulting Physician General Surgery 10/22/18 Aubrey Crabtree III, MD [address] [place], [place] [id number] Medical Oncologist Internal Medicine 11/06/18 Jez Denson MD [facility] [address] [facility] [place] [id number] Consulting Physician Cardiovascular Disease - Cardiology 01/19/19 Cathleen Gallegos MD [address] [place] [address] Consulting Physician Nephrology 01/19/19 Vikram Garza MD [address] [address] Consulting Physician Cardiovascular Disease - Cardiology 01/19/19 Treva Edwards MD [address] [place] [address] Consulting Physician Internal Medicine 08/31/20 Sanchez Bills DPM [facility] [address] [facility] [address] [place] [address] Consulting Physician Podiatry 08/31/20 documented as of this encounter
--- OUTSIDE RECORDS SUMMARY | 2025-08-09 09:34 | XMS_ITS | Encounter Summary ---
Author Organization [facility] Address [address] [place] [address] Care Team Providers Care Finger Cobbler Name Role Phone Juan Laguerre MD Primary Care Provider [phone] Bro AWAN MD, Aubrey Lane Unavailable [phone] Jaki Nieves PhD Unavailable [phone] Source Comments In the event that this is information that is protected by federal Confidentiality of Substance User Disorder Patient Records, 42 CFR Part 2 prohibits the unauthorized disclosure of these records.[facility] Encounter Details Date Type Department Care Team (Late st Contact Info) Description 07/30/2022 Orders Only NM Transplant Surgery [address] [facility], 19th Floor [address] [place], [place] [address] Sandra Joiner, MACHINE SET UP OPERATOR, ADJUNCT WRITING INSTRUCTOR [address] [facility] [address] [place] [address] Social History Tobacco Use Types Packs/Day Years [...] [facility], 19th Floor [address] [place] [address] Apt confirmed-EH documented as of this encounter Visit Diagnoses Diagnosis 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) Liver replaced by transplant Kidney replaced by transplant documented in this encounter Care Teams Finger Cobbler Relationship Specialty Start Date End Date Juan Laguerre MD [address] [facility] [address] [place], [place] [id number] PCP - General Family Medicine 01/02/18 Aubrey Crabtree III, MD [address] [facility] [address] [place] [address] Hematology and Medical Oncology 10/01/18 Jaki Nieves, PhD [address] [facility] [address] [place], [place] [address] Genetic Counseling 11/27/18 documented as of this encounter
--- OUTSIDE RECORDS SUMMARY | 2025-08-09 09:34 | XMS_ITS | Encounter Summary ---
Author Organization [facility] Address [address] [place] [address] Care Team Providers Care Progressive Care Nurse Name Role Phone Juan Laguerre MD Primary Care Provider [phone] Bro AWAN MD, Aubrey Lane Unavailable [phone] Jaki Nieves PhD Unavailable [phone] Source Comments In the event that this is information that is protected by federal Confidentiality of Substance User Disorder Patient Records, 42 CFR Part 2 prohibits the unauthorized disclosure of these records.[facility] Encounter Details Date Type Department Care Team (Late Contact Info) Description 07/14/2018 Procedure Pass [place] Radiology [address], [address] [place] [address] Social History Tobacco Use Types Packs/Day Years [...] Visit NM Transplant Surgery [address] [facility], 19th [address] [place] [address] Apt confirmed-EH documented as of this encounter Visit Diagnoses Not on filedocumented in this encounter Additional Health Concerns Infection Onset Date Last Indicated Resolved Time COVID-19 Comment:Tested + on 09/0109/01/2020 09/05/2020 09/25/2020 12: 31 AM 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
--- OUTSIDE RECORDS SUMMARY | 2025-08-09 09:34 | XMS_ITS | Encounter Summary ---
Author Organization [facility] Address [address] [place] [address] Care Team Providers Care Circulation Analyst Name Role Phone Juan Laguerre MD Primary Care Provider [phone] Bro AWAN MD, Aubrey Lane Unavailable [phone] Jaki Nieves PhD Unavailable [phone] Source Comments In the event that this is information that is protected by federal Confidentiality of Substance User Disorder Patient Records, 42 CFR Part 2 prohibits the unauthorized disclosure of these records.[facility] Encounter Details Date Type Department Care Team (Late Contact Info) Description 11/14/2020 Orders Only NM Transplant Surgery [address] [facility], 19th Floor [address] [place] [address] Linette Almaguer RN Social History Tobacco Use [...] [facility], [facility] [address] [place] [address] Apt confirmed-EH documented as of this encounter Procedures Procedure Name Priority Date/Time Associated Diagnosis Comments LIPID PANEL (AMA) W/LDL CALC Routine 11/11/2020 1:26 PM PROGRAM PRODUCTION SPECIALIST documented in this encounter Results * (ABNORMAL) Lipid Panel(AMA) w/LDL Calculated (11/11/2020 1:26 PM PROGRAM PRODUCTION SPECIALIST) Total Cholesterol - External 261(H) 0 - 200 mg/dL EXTERNAL LAB Triglycerides - External 369(H) 0 - 150 mg/dL EXTERNAL LAB HDL Cholesterol - External 40 23 - 92 mg/dL EXTERNAL LAB Cholesterol LDL Direct - External 147(H) 0 - 130 mg/dL EXTERNAL LAB 11/11/2020 1:26 PM PROGRAM PRODUCTION SPECIALIST Narrative EXTERNAL LAB - 11/14/2020 9:28 AM PROGRAM PRODUCTION SPECIALIST Verified by Koki Burks on 11/14/2020. us Edwin Del Toro MD CHEMISTRY ORDERABLES Final Result EXTERNAL LAB documented in this encounter Visit Diagnoses Diagnosis 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 transplant documented in this encounter Care Teams Circulation Analyst Relationship Specialty Start Date End Date Juan Laguerre MD [address] [facility] [address] [place] [address] PCP - General Family Medicine 01/02/18 Aubrey Crabtree III, MD [address] [facility] [address] [place], [place] [phone] Hematology and Medical Oncology 10/01/18 Jaki Nieves, PhD [address] [facility] [address] [place] [address] Genetic Counseling 11/27/18 documented as of this encounter
--- OUTSIDE RECORDS SUMMARY | 2025-08-09 09:34 | XMS_ITS | Encounter Summary ---
Author Organization [facility] Address [address] [place] [address] Care Team Providers Care Ssis Architect Name Role Phone Juan Laguerre MD Primary Care Provider [phone] Bro AWAN MD, Aubrey Lane Unavailable [phone] Jaki Nieves PhD Unavailable [phone] Source Comments In the event that this is information that is protected by federal Confidentiality of Substance User Disorder Patient Records, 42 CFR Part 2 prohibits the unauthorized disclosure of these records.[facility] Encounter Details Date Type Department Care Team (Late st Contact Info) Description 09/08/2018 Orders Only NM Transplant Surgery [address] [facility], 19th Floor [address] [place], [place] [address] Noe Keyes MD [address] [facility] [address], [place] [address] Social History Tobacco Use Types Packs/Day Years [...] [facility], [facility] [address] [place] [address] Apt confirmed-EH documented as of this encounter Visit Diagnoses Diagnosis Kidney transplanted Kidney replaced by transplant documented in this encounter Additional Health Concerns Infection Onset Date Last Indicated Resolved Time COVID-19 Comment:Tested + on 09/0109/01/2020 09/05/2020 09/25/2020 12: 31 AM 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
--- OUTSIDE RECORDS SUMMARY | 2025-08-09 09:34 | XMS_ITS | Encounter Summary ---
Author Organization [facility] Address [address] [place] [address] Care Team Providers Care Crusher Name Role Phone Juan Laguerre MD Primary Care Provider [phone] Bro AWAN MD, Aubrey Lane Unavailable [phone] Jaki Nieves PhD Unavailable [phone] Source Comments In the event that this is information that is protected by federal Confidentiality of Substance User Disorder Patient Records, 42 CFR Part 2 prohibits the unauthorized disclosure of these records.[facility] Encounter Details Date Type Department Care Team (Late Contact Info) Description 08/15/2020 Orders Only NM Transplant Surgery [address] [facility], 19th Floor [address] [place] [address] Vivi Ponce Social History Tobacco Use Types [...] [address], [address] [place] [address] Apt confirmed-EH documented as of this encounter Visit Diagnoses Diagnosis 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 transplant documented in this encounter Additional Health Concerns Infection Onset Date Last Indicated Resolved Time COVID-19 Comment:Tested + on 09/0109/01/2020 09/05/2020 09/25/2020 12: 31 AM AUTOGLAZIER documented as of this encounter Care Teams Crusher Relationship Specialty Start Date End Date Juan Laguerre MD [address] [facility] [address] [place], [place] [id number] PCP - General Family Medicine 01/02/18 Aubrey Crabtree III, MD [address] [facility] [address] [place] [address] Hematology and Medical Oncology 10/01/18 Jaki Nieves, PhD [address] [place], [place] [address] Genetic Counseling 11/27/18 documented as of this encounter
--- OUTSIDE RECORDS SUMMARY | 2025-08-09 09:34 | XMS_ITS | Encounter Summary ---
Author Organization [facility] Address [address] [place] [address] Phone Care Team Providers Care Systems Navigator Name Role Phone Juan Laguerre MD Primary Care Provider [phone] Rell Painting MD Unavailable [phone] Bro AWAN MD, Aubrey Ellis Unavailable [phone] Jez Denson MD Unavailable Cathleen Gallegos MD Unavailable Vikram Garza MD Unavailable [phone] Treva Edwards MD Unavailable [phone] Sanchez Bills DPM Unavailable [phone] Encounter Details Date Type Department Care Team (Latest Contact Info) Description 06/06/2021 Transcribe Orders [facility] Laboratory Services [address] [place] [address] Edwin Del Toro MD [address] [facility] [address] [place] [address] Liver replaced by transplant (HCC) (Primary Dx); Kidney replaced by transplant Social History Tobacco Use Types Packs/Day Years Used Date Smoking Tobacco: Former Cigarettes 1 30 0 06/15/1981 - 06/15/2011 Smokeless Tobacco: Never Alcohol Use Standard Drinks/Week Comments Not Currently 0 (1 standard drink = 0.6 oz pur e alcohol) PHQ-2 Answer Date Recorded Total Score - Questions 1-9 0 02/02 Sex and Gender Information Value Date Recorded Sex Assigned at Not on file Legal Sex Male 12:44 AM CDT Gender Identity Not on file Sexual Orientation Not on file COVID-19 Exposure Response Date Recorded In the last month, have you been in contact with someone who was confirmed or suspected to have Coronavirus / COVID-19? No / Unsure 05/31/2021 6:24 AM CDT documented as of this encounter Plan of Treatment Upcoming Encounters Date Type Department Care Team (Late st Contact Info) Description 08/10/2025 12:45 PM CDT Lab [facility] [address] [phone] Lab, [facility] 08/10/2025 1:00 PM CDT Ancillary Procedure [facility] [address] [phone] 08/17/2025 9:00 AM CDT Office Visit [facility] [address] [phone] Tyler Haile MD [address] [place] [address] documented as of this encounter Results * PHOSPHORUS (PO4) (06/20/2021 12:46 PM CDT) Phosphorous 3.2 2.5 - 4.6 mg/dL [facility] Blood 06/20/2021 12:4 6 PM CDT Narrative [facility] - 06/20/2021 2:18 PM CDT Release to patient->Immediate Edwin Del Toro MD CHEMISTRY ORDERABLES Final Result CANCER ICU RN [facility] [place] [address], * (ABNORMAL) CMP (COMPREHENSIVE METABOLIC PANEL) (06/20/2021 12:46 PM CDT) Glucose 150(H) 70 - 105 mg/dL [facility] Blood Urea Nitrogen 32(H) 7 - 25 mg/dL [facility] Creatinine 1.6(H) 0.7 - 1.3 mg/dL [facility] Sodium 136 136 - 145 mEq/L [facility] Potassium 5.0 3.5 - 5.1 mEq/L [facility] Chloride 103 98 - 107 mEq/L [facility] Bicarbonate 27 21 - 31 mEq/L [facility] Total Bilirubin 0.4 0.3 - 1.0 mg/dL [facility] Alk. Phosphatase 75 34 - 104 U/L [facility] Aspartate Aminotransferase 18 13 - 39 U/L [facility] Alanine Aminotransferase 14 7 - 52 U/L [facility] Total Protein 6.8 6.4 - 8.9 g/dL [facility] Albumin 3.9 3.5 - 5.7 g/dL [facility] Calcium 9.7 8.6 - 10.3 mg/dL [facility] Anion Gap 11.0 7.0 - 15.0 mEq/L [facility] Globulin 2.9 2.0 - 3.5 g/dL [facility] EGFR (Non ) 44.2(L) >60.0 ml/min [facility] EGFR () 53.5(L) >60.0 ml/min [facility] Blood 06/20/2021 12:4 6 PM CDT Narrative [facility] - 06/20/2021 2:18 PM CDT IS THE PATIENT REQUIRED TO BE FASTING FOR 8 HOURS?->No Release to patient->Immediate Edwin Del Toro MD CHEMISTRY ORDERABLES Final Result Performing Organization Address City/[facility]/ZIP Co de Phone Number CANCER ICU RN [facility] [place] [address], [place] [phone] * (ABNORMAL) VITAMIN D, 25 HYDROXY TOTAL (06/20/2021 12:46 PM CDT) 25() Vitamin D, Total 27.0(L) 30.0 - 100.0 ng/mL [facility] ICU RN [facility] Comment: The Clinical Guidelines Subcommittee of the Endocrine Society Task Force established the guidelines below for recommended serum 25(OH) vitamin D levels. Other clinical reference citations may show different values. Deficient <20 Insufficient 20 to <30 Sufficient 30 to 100 Upper Safety Limit >100 Blood 06/20/2021 12:4 6 PM CDT Edwin Del Toro MD CHEMISTRY ORDERABLES Final Result Performing Organization Address [facility] Co de Phone Number [facility] [place] [address], [place] [phone] * PARATHYROID HORMONE PTH INTACT (06/20/2021 12:46 PM CDT) PTH, INTACT 23 15 - 65 PG/ML [facility] Blood 06/20/2021 12:4 6 PM CDT Narrative [facility] - 06/21/2021 10:07 AM CDT TESTING PERFORMED AT: [] [address], [address], PHONE: [phone], MACHINE SILVER STRIPPER: RAEGAN ROSALES, PHD Release to patient->Immediate Edwin Del Toro MD CHEMISTRY ORDERABLES Final Result Performing Organization Address City/[facility]/ZIP Co de Phone Number [facility] * (ABNORMAL) LIPID PANEL (06/20/2021 12:46 PM CDT) Cholesterol 234(H) 0 - 200 mg/dL CANC[facility] ICU RN [facility] Triglyceride 387(H) 0 - 150 mg/dL CANCER ICU RN [facility] HDL 40 23 - 92 mg/dL [facility] ICU RN [facility] LDL 117 0 - 130 mg/dL [facility] ICU RN [facility] Cholesterol /HDL Ratio 5.85(H) 0.00 - 4.44 CANCER ICU RN [facility] Blood 06/20/2021 12:4 6 PM CDT Narrative [facility] ICU RN [facility] - 06/20/2021 2:18 PM CDT Is the patient fasting? Not fasting us Edwin Del Toro MD CHEMISTRY ORDERABLES Final Result CANCER ICU RN [facility] [place] [address], * (ABNORMAL) COMPLETE BLOOD COUNT (CBC) WITH DIFF (06/20/2021 12:46 PM CDT) WBC 8.7 4.0 - 10.0 10*3/uL CANCER ICU RN [facility] HGB 16.1 13.7 - 17.5 g/dL CANCER ICU RN [facility] HCT 52.9(H) 40.1 - 51.0 % CANCER ICU RN [facility] PLT 146(L) 163 - 369 10*3/uL CANCER ICU RN [facility] MPV 10.3 9.4 - 12.4 fL CANCER ICU RN [facility] RBC 6.60(H) 4.63 - 6.08 10*6/uL CANCER ICU RN [facility] MCV 80 79 - 95 fL CANCER ICU RN [facility] MCH 24.4(L) 25.6 - 32.2 pg CANCER ICU RN [facility] MCHC 30.4(L) 32.2 - 36.5 g/dL CANCER ICU RN [facility] RDW 19.6(H) 11.6 - 14.4 % CANCER ICU RN [facility] Absolute Neutrophil Count 2,941 cells/uL [facility] Absolute Seg Count 2,941 1,440 - 6,600 cells/uL CANCER ICU RN [facility] Absolute Lymph Count 4,585(H) 760 - 4,000 cells/uL [facility] Absolute Mccurtain Count 865 160 - 1,200 cells/uL CANCER ICU RN [facility] Absolute Eos Count 173 0 - 300 cells/uL CANCER ICU RN [facility] Absolute Baso Count 87 0 - 100 cells/uL CANCER ICU RN [facility] Segmented Neutrophils 34(L) 36 - 66 % CANCER ICU RN [facility] Lymphocytes 53(H) 19 - 40 % [facility] Monocytes 10 4 - 12 % [facility] Eosinophils 2 0 - 3 % [facility] Basophils 1 0 - 1 % [facility] WBC Estimate Normal CANCER ICU RN [facility] Platelet Estimate Low CA NCER ICU RN [facility] RBC Morphology Abnormal CANCE R ICU RN [facility] Hypochromasia 1+ CANCER ICU RN [facility] Anisocytosis 2+ CANCER ICU RN [facility] Blood 06/20/2021 12:4 6 PM CDT Narrative [facility] - 06/20/2021 2:59 PM CDT Release to patient->Immediate us Edwin Del Toro MD HEMATOLOGY ORDERABLES Final Result CANCER ICU RN [facility] [place] [address], documented in this encounter Visit Diagnoses Diagnosis Liver replaced by transplant- Primary 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 Kidney replaced by transplant documented in this encounter Additional Health Concerns Assessment Noted Time PHQ-9 Depression Total Score: 0 02/15/20 21 11:29 AM CDT documented as of this encounter Care Teams Systems Navigator Relationship Specialty Start Date End Date Juan Laguerre MD [address] [place] [address] [place] [address] PCP - General Family Medicine 10/05/16 Rell Painting MD [address] [facility] [address] [facility] [address] [place] [address] Consulting Physician General Surgery 10/22/18 Aubrey Crabtree III, MD [address] [address] Medical Oncologist Internal Medicine 11/06/18 Jez Denson MD [address] [facility] [place] [address] Consulting Physician Cardiovascular Disease - Cardiology 01/19/19 Cathleen Gallegos MD [address] [address] Consulting Physician Nephrology 01/19/19 Vikram Garza MD [facility] N [address] [address] Consulting Physician Cardiovascular Disease - Cardiology 01/19/19 Treva Edwards MD [address] [place] [address] Consulting Physician Internal Medicine 08/31/20 Sanchez Bills DPM [address] [facility] [address] [place] [address] Consulting Physician Podiatry 08/31/20 documented as of this encounter
--- OUTSIDE RECORDS SUMMARY | 2025-08-09 09:34 | XMS_ITS | Encounter Summary ---
Author Organization [facility] Address [address] [place] [address] Care Team Providers Care Dock Builder Name Role Phone Juan Laguerre MD Primary Care Provider [phone] Bro AWAN MD, Aubrey Lane Unavailable [phone] Jaki Nieves PhD Unavailable [phone] Source Comments In the event that this is information that is protected by federal Confidentiality of Substance User Disorder Patient Records, 42 CFR Part 2 prohibits the unauthorized disclosure of these records.[facility] Encounter Details Date Type Department Care Team ([facility] st Contact Info) Description 09/02/2018 Prep for Procedure NM Surgery [address] [place] [address] Sheryl Gonzalez, TRANSFORMER MOLDER, MOTOR POOL CLERK [address] [place] [address] Social History Tobacco Use Types Packs/Day Years Used Date Smoking Tobacco: Former Cigarettes 2 30 2 - 2011 Smokeless Tobacco: Never Alcohol [...] Office Visit [place] Transplant Surgery [address] [facility], 19th Floor [address] [place] [address] Apt confirmed-EH documented as of this encounter Visit Diagnoses Not on filedocumented in this encounter Additional Health Concerns Infection Onset Date Last Indicated Resolved Time COVID-19 Comment:Tested + on 09/0109/01/2020 09/05/2020 09/25/2020 12: 31 AM 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
--- OUTSIDE RECORDS SUMMARY | 2025-08-09 09:34 | XMS_ITS | Encounter Summary ---
Author Organization [facility] Address [address] [place] [address] Care Team Providers Care Canvas Worker Name Role Phone Juan Laguerre MD Primary Care Provider [phone] Bro AWAN MD, Aubrey Lane Unavailable [phone] Jaki Nieves PhD Unavailable [phone] Source Comments In the event that this is information that is protected by federal Confidentiality of Substance User Disorder Patient Records, 42 CFR Part 2 prohibits the unauthorized disclosure of these records.[facility] Encounter Details Date Type Department Care Team (Late st Contact Info) Description 08/31/2019 Orders Only [place] Transplant Surgery [address] [facility], 19th Floor [address] [place], [place] [address] Cathleen Gallegos MD [address] [facility] [address], [place] [address] Social History Tobacco Use Types Packs/Day Years [...] Visit [place] Transplant Surgery [address] [facility], [address]th [address] [place] [address] Apt confirmed-EH documented as of this encounter Visit Diagnoses Diagnosis Kidney transplant 01/02/2008 Liver transplant 01/02/2008 Liver replaced by transplant Secondary renal hyperparathyroidism (CMS-HCC) Secondary hyperparathyroidism (of renal origin) Type II diabetes mellitus with complication, uncontrolled Type II or unspecified type diabetes mellitus with unspecified complication, uncontrolled documented in this encounter Additional Health Concerns Infection Onset Date Last Indicated Resolved Time COVID-19 Comment:Tested + on 09/0109/01/2020 09/05/2020 09/25/2020 12: 31 AM 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
--- OUTSIDE RECORDS SUMMARY | 2025-08-09 09:35 | XMS_ITS | Encounter Summary ---
Author Organization [facility] Address [address] [place] [address] Care Team Providers Care Computer Network Support Specialist Name Role Phone Juan Laguerre MD Primary Care Provider [phone] Bro AWAN MD, Aubrey Lane Unavailable [phone] Jaki Nieves PhD Unavailable [phone] Source Comments In the event that this is information that is protected by federal Confidentiality of Substance User Disorder Patient Records, 42 CFR Part 2 prohibits the unauthorized disclosure of these records.[facility] Encounter Details Date Type Department Care Team (Late Contact Info) Description 11/05/2018 Procedure Pass [place] Radiology [address] 4th [place] [address] Social History Tobacco Use Types Packs/Day Years [...] [facility], 19th Floor [address] [place] [address] Apt confirmed-EH documented as of this encounter Visit Diagnoses Not on filedocumented in this encounter Additional Health Concerns Infection Onset Date Last Indicated Resolved Time COVID-19 Comment:Tested + on 09/0109/01/2020 09/05/2020 09/25/2020 12: 31 AM 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
--- OUTSIDE RECORDS SUMMARY | 2025-08-09 09:35 | XMS_ITS | Encounter Summary ---
Author Organization [facility] Address [address] [place] [address] Care Team Providers Care Ux Developer Name Role Phone Juan Laguerre MD Primary Care Provider [phone] Bro AWAN MD, Aubrey Lane Unavailable [phone] Jaki Nieves PhD Unavailable [phone] Source Comments In the event that this is information that is protected by federal Confidentiality of Substance User Disorder Patient Records, 42 CFR Part 2 prohibits the unauthorized disclosure of these records.[facility] Encounter Details Date Type Department Care Team (Late st Contact Info) Description 09/25/2021 Orders Only NM Transplant Surgery [address] [facility], 19th [address] [place], [place] [address] Sandra Joiner, LINING SCRUBBER, ELECTORAL OFFICER [address] [facility] [address] [place] [address] Social History Tobacco Use Types Packs/Day Years [...] Visit NM Transplant Surgery [address] [facility], 19th [address] [place] [address] Apt confirmed-EH documented as of this encounter Procedures Procedure Name Priority Date/Time Associated Diagnosis Comments LIPID PANEL (AMA) W/LDL CALC Routine 10/07/2021 6:29 AM RN LICENSED PRACTICAL documented in this encounter Results * (ABNORMAL) Lipid Panel(AMA) w/LDL Calculated (10/07/2021 6:29 AM RN LICENSED PRACTICAL) Total Cholesterol - External 281(H) mg/dL EXTERNAL LAB HDL Cholesterol - External 38(L) 40 - 100 mg/dL EXTERNAL LAB Cholesterol LDL Direct - External 155(H) <130 mg/dL EXTERNAL LAB Triglycerides - External 527 EXTERNAL LAB 10/07/2021 6:29 AM RN LICENSED PRACTICAL Narrative EXTERNAL LAB - 10/07/2021 1:15 PM RN LICENSED PRACTICAL Verified by Monie Siddiqui on 10/07/2021. 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) Liver replaced by transplant Kidney replaced by transplant documented in this encounter Care Teams Ux Developer Relationship Specialty Start Date End Date Juan Laguerre MD [address] [facility] [address], [place] [address] PCP - General Family Medicine 01/02/18 Aubrey Crabtree III, MD [address] [facility] [address], [place] [address] Hematology and Medical Oncology 10/01/18 Jaki Nieves, PhD [address] [facility] [address] [place] [address] Genetic Counseling 11/27/18 documented as of this encounter
--- OUTSIDE RECORDS SUMMARY | 2025-08-09 09:35 | XMS_ITS | Encounter Summary ---
Author Organization [facility] Address [address] [place] [address] Phone Care Team Providers Care Interventional Cardiologist Name Role Phone Juan Laguerre MD Primary Care Provider [phone] Rell Painting MD Unavailable [phone] Bro AWAN MD, James L Unavailable [phone] Jez Denson MD Unavailable Cathleen Gallegos MD Unavailable Vikram Garza MD Unavailable [phone] Treva Edwrads MD Unavailable [phone] Sanchez Bills DPM Unavailable [phone] Encounter Details Date Type Department Care Team (Latest Contact Info) Description 12/20/2020 Transcribe Orders [facility] Laboratory Services [address] [place] [address] Cathleen Gallegos MD [address] [address] Lipid disorder (Primary Dx); Kidney replaced by transplant; Liver replaced by transplant (HCC); Vitamin D deficiency Social History Tobacco Use Types Packs/Day Years Used Date Smoking Tobacco: Former Cigarettes 1 30 0 06/15/1981 - 06/15/2011 Smokeless Tobacco: Never Alcohol Use Standard Drinks/Week Comments Not Currently 0 (1 standard drink = 0.6 oz pur e alcohol) PHQ-2 Answer Date Recorded Total Score - Questions 1-9 0 08/05 Sex and Gender Information Value Date Recorded Sex Assigned at Not on file Legal Sex Male 12:44 AM CDT Gender Identity Not on file Sexual Orientation Not on file COVID-19 Exposure Response Date Recorded In the last month, have you been in contact with someone who was confirmed or suspected to have Coronavirus / COVID-19? No / Unsure 12/10/2020 6:16 AM ARCHITECTURE CONSULTANT documented as of this encounter Plan of Treatment Upcoming Encounters Date Type Department Care Team (Late st Contact Info) Description 08/10/2025 12:45 PM CDT Lab [facility] [address] [id number] Lab, [facility] 08/10/2025 1:00 PM CDT Ancillary Procedure [facility] [address] [id number] 08/17/2025 9:00 AM CDT Office Visit [facility] [address] [id number] Tyler Haile MD [address] [place] [phone] documented as of this encounter Results * VITAMIN D, 25 HYDROXY TOTAL (01/07/2021 6:48 AM ARCHITECTURE CONSULTANT) VITAMIN D, 25 HYDROX 25 ng/mL 01/07/2021 7:48 AM ARCHITECTURE CONSULTANT [facility] Blood Venipuncture / Unknown 01/07/2021 6:48 AM ARCHITECTURE CONSULTANT 01/07/2021 6:52 AM ARCHITECTURE CONSULTANT Narrative [facility] - 01/07/2021 7:48 AM ARCHITECTURE CONSULTANT Adult 21 years and up Deficiency <20 ng/ml Insufficient 20 - <30 ng/ml Sufficiency 30 - 100 ng/ml Cathleen Gallegos MD CHEMISTRY ORDERABLES Final Resul t Performing Organization Address [facility] [place] [address] * (ABNORMAL) PARATHYROID HORMONE PTH INTACT (01/07/2021 6:48 AM ARCHITECTURE CONSULTANT) PTH INTACT 95(H) 14 - 72 pg/mL 01/07/2021 7:44 AM [facility] Comment: PLEASE NOTE: As of January 30, 2012, the ADVIA Centaur iPTH assay was reformulated to reduce negative interference from high dose biotin therapy. Samples containing up to 1000 ng/ml of biotin now show no significant negative bias. ESRD patients with excessive levels of biotin may show a clinically significant increase in PTH values when compared to historically depressed PTH values due to biotin interference. Blood Venipuncture / Unknown 01/07/2021 6:48 AM ARCHITECTURE CONSULTANT 01/07/2021 6:52 AM ARCHITECTURE CONSULTANT Cathleen Gallegos MD CHEMISTRY ORDERABLES Final Resul t Performing Organization Address [facility] [place] [address] * (ABNORMAL) LIPID PANEL (01/07/2021 6:48 AM ARCHITECTURE CONSULTANT) CHOLESTEROL 249(H) 0 - 199 mg/dL 01/07/2021 7:37 AM [facility] Comment: CHOL Interp. (mg/dl): Optimal: <200 Borderline High: 200-239 High: >239 TRIGLYCERIDES 371(H) 0 - 149 mg/dL 01/07/2021 7:37 AM [facility] Comment: TGL Interp. (mg/dl): Optimal: <150 Borderline High: 150-199 High: 200-499 Very High: >499 HDL CHOLESTEROL 39(L) 40 - 100 mg/dL 01/07/2021 7:37 AM [facility] Comment: HDL Interp. (mg/dl): Low: <40 Optimal: >60 LDL 136(H) <130 mg/dL 01/07/2021 7:37 AM ARCHITECTURE CONSULTANT [facility] Comment: LDL-C Interp. (mg/dl): Optimal: <100 Near or above optimal: 100-129 Borderline High: 130-159 High: 160-189 Very high: >189 Please note revised interpretive criteria based on NCEP ATP III classification, effective Dec 24, 2007. Blood Venipuncture / Unknown 01/07/2021 6:48 AM ARCHITECTURE CONSULTANT 01/07/2021 6:52 AM ARCHITECTURE CONSULTANT us Cathleen Gallegos MD CHEMISTRY ORDERABLES Final Resul t [facility] [address] [place] [address] documented in this encounter Visit Diagnoses Diagnosis Lipid disorder- Primary Unspecified disorder of lipoid metabolism 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 Vitamin D deficiency Unspecified vitamin D deficiency documented in this encounter Additional Health Concerns Assessment Noted Time PHQ-9 Depression Total Score: 0 08/23/20 11:09 AM CDT documented as of this encounter Care Teams Interventional Cardiologist Relationship Specialty Start Date End Date Juan Laguerre MD [address] [place] [address] [place] [address] PCP - General Family Medicine 10/05/16 Rell Painting MD [address] [facility] [address] [facility] [address] [place] [address] Consulting Physician General Surgery 10/22/18 Aubrey Crabtree III, MD [address] [facility] [address] [place] [address] Medical Oncologist Internal Medicine 11/06/18 Jez Denson MD [address] [facility] [place] [id number] Consulting Physician Cardiovascular Disease - Cardiology 01/19/19 Cathleen Gallegos MD [address] [address] Consulting Physician Nephrology 01/19/19 Vikram Garza MD [address] [address] Consulting Physician Cardiovascular Disease - Cardiology 01/19/19 Treva Edwards MD [address] [place] [id number] Consulting Physician Internal Medicine 08/31/20 Sanchez Bills DPM [facility] [address] [address] Consulting Physician Podiatry 08/31/20 documented as of this encounter
--- OUTSIDE RECORDS SUMMARY | 2025-08-09 09:35 | XMS_ITS | Encounter Summary ---
Author Organization [facility] Address [address] [place] [address] Care Team Providers Care Grid Inspector Name Role Phone Juan Laguerre MD Primary Care Provider [phone] Bro AWAN MD, Aubrey Lane Unavailable [phone] Jaki Nieves PhD Unavailable [phone] Source Comments In the event that this is information that is protected by federal Confidentiality of Substance User Disorder Patient Records, 42 CFR Part 2 prohibits the unauthorized disclosure of these records.[facility] Encounter Details Date Type Department Care Team (Late Contact Info) Description 02/27/2021 Orders Only NM Transplant Surgery [address] [facility], 19th [address] [place] [address] Linette Almaguer RN Social History Tobacco Use [...] [address], [address] [place] [address] Apt confirmed-EH documented as of this encounter Procedures Procedure Name Priority Date/Time Associated Diagnosis Comments EVEROLIMUS LEVEL Routine 03/18/2021 6:25 AM CDT EVEROLIMUS LEVEL Routine 03/18/2021 6:25 AM CDT MYCOPHENOLIC ACID Routine 03/18/2021 6:2 5 AM CDT URINALYSIS WITH MICROSCOPIC Routine 03/18/2021 6:25 AM CDT CBC AND DIFFERENTIAL Routine 03/18/2021 6:25 AM CDT HEPATIC FUNCTION PANEL Routine 03/18/2021 6:25 AM CDT documented in this encounter Results * Everolimus Level (03/18/2021 6:25 AM CDT) Everolimus Level - External 5.2 EXTERNAL LAB 03/18/2021 6:25 AM CDT Narrative EXTERNAL LAB - 03/23/2021 9:57 AM CDT Verified by Monie Siddiqui on 03/23/2021. us Cathleen Gallegos MD CHEMISTRY ORDERABLES Final Resul t EXTERNAL LAB * Everolimus Level (03/18/2021 6:25 AM CDT) Everolimus Level - External 5.2 EXTERNAL LAB 03/18/2021 6:25 AM CDT Narrative EXTERNAL LAB - 03/21/2021 3:53 PM CDT Verified by Monie Siddiqui on 03/21/2021. us Cathleen Gallegos MD CHEMISTRY ORDERABLES Final Resul t EXTERNAL LAB * (ABNORMAL) Mycophenolic Acid (03/18/2021 6:25 AM CDT) Mycophenolic Acid - External 3.0(L) 10 - 35 ug/mL EXTERNAL LAB 03/18/2021 6:25 AM CDT Narrative EXTERNAL LAB - 03/21/2021 7:54 AM CDT Verified by Monie Siddiqui on 03/21/2021. Cathleen Gallegos MD CHEMISTRY ORDERABLES Final Resul t Performing Organization Address [facility] Co de Phone Number EXTERNAL LAB * (ABNORMAL) Urinalysis with microscopic (03/18/2021 6:25 AM CDT) Specific [place], Urine - External 1.013 1.003 - 1.035 EXTERNAL LAB UA pH - External 6.5 EXTERNAL LAB UA Nitrate - External Negative Negative EXTERNAL LAB UA Protein - External 1+(A) Negative EXTERNAL LAB UA Glucose - External 4+(A) Negative EXTERNAL LAB UA Ketones - External Negative Negative EXTERNAL LAB UA Urobilinogen - External 2.0 <20 mg/dL EXTERNAL LAB UA Bilirubin - External Negative Negative EXTERNAL LAB UA Blood - External Negative Negative raul/ul EXTERNAL LAB UA Color - External Yellow Yellow EXTERNAL LAB UA Appearance - External Clear Clear EXTERNAL LAB UA WBC - External 0-5 0-5, /hpf EXTERNAL LAB UA Leukocyte Esterase - External NEG EXTERNAL LAB UA Bacteria - External RARE EXTERNAL LAB 03/18/2021 6:25 AM CDT Narrative EXTERNAL LAB - 03/18/2021 12:22 PM CDT Verified by Monie Siddiqui on 03/18/2021. us Cathleen Gallegos MD URINE ORDERABLES Final Result Performing Organization Address City/[facility]/ZIP Co de Phone Number EXTERNAL LAB * (ABNORMAL) Hepatic function panel (03/18/2021 6:25 AM CDT) Total Bilirubin - External 0.4 0.0 - 1.0 mg/dL EXTERNAL LAB Direct Bilirubin - External <0.1 0.0 - 0.3 mg/dL EXTERNAL LAB Alkaline Phos - External 128(H) 39 - 117 U/L EXTERNAL LAB AST (SGOT) - External 17 U/L EXTERNAL LAB ALT (SGPT) - External 26 12 - 55 U/L EXTERNAL LAB Total Protein - External 7.5 6.2 - 8.4 g/dL EXTERNAL LAB Albumin - External 3.4(L) 5 - 5.0 g/dL EXTERNAL LAB 03/18/2021 6:25 AM CDT Narrative EXTERNAL LAB - 03/18/2021 12:22 PM CDT Verified by Monie Siddiqui on 03/18/2021. us Cathleen Gallegos MD CHEMISTRY ORDERABLES Final Resul t EXTERNAL LAB * (ABNORMAL) CBC with Differential (03/18/2021 6:25 AM CDT) White Blood Cells - External 10.95 10(3)/mcL EXTERNAL LAB Red Blood Cells - External 7.08(H) 10(6)/mcL EXTERNAL LAB Hemoglobin - External 16.9 6 - 17.4 g/dL EXTERNAL LAB Hematocrit - External 56.3(H) 39.8 - 52.2 % EXTERNAL LAB MCV - External 79.5 0 - 100.0 fL EXTERNAL LAB MCH - External 23.9 5 - 33.9 pg EXTERNAL LAB MCHC - External 30(L) 31.5 - 36.0 g/dL EXTERNAL LAB Platelets - External 170 140 - 445 10(3)/mcL EXTERNAL LAB RDW - External 19.7 12.0 - 150 % EXTERNAL LAB Neutrophils - External 59.8 % EXTERNAL LAB Lymphocytes - External 25.5 % EXTERNAL LAB Monocytes - External 10.4 % EXTERNAL LAB Eosinophils - External 2.5 % EXTERNAL LAB Neutrophils Abs (cells/uL) - External 6.56 1.40 - 7.30 cells/uL EXTERNAL LAB Lymph Absolute - External 2.79 10(3)/mcL EXTERNAL LAB [place] Absolute - External 1.14(H) 0.10 - 0.80 10(3)/mcL EXTERNAL LAB - External 0.27 0.00 - 0.30 10(3)/mcL EXTERNAL LAB Basophil Absolute - External 0.14(H) 0.00 - 0 10(3)/mcL EXTERNAL LAB 03/18/2021 6:25 AM CDT Narrative EXTERNAL LAB - 03/18/2021 12:22 PM CDT Verified by Monie Siddiqui on 03/18/2021. us Cathleen Gallegos MD HEMATOLOGY ORDERABLES Final Resu lt EXTERNAL LAB documented in this encounter Visit Diagnoses Diagnosis 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 transplant documented in this encounter Care Teams Grid Inspector Relationship Specialty Start Date End Date Juan Laguerre MD [address] [facility] [address] [place] [address] PCP - General Family Medicine 01/02/18 Aubrey Crabtree III, MD [address] [facility] [address] [place] [id number] Hematology and Medical Oncology 10/01/18 Jaki Nieves, PhD [address] [facility] [address] [place] [address] Genetic Counseling 11/27/18 documented as of this encounter
--- OUTSIDE RECORDS SUMMARY | 2025-08-09 09:35 | XMS_ITS | Encounter Summary ---
Author Organization [facility] Address [address] [place] [address] Care Team Providers Care Rabble Furnace Tender Name Role Phone Juan Laguerre MD Primary Care Provider [phone] Bro AWAN MD, Aubrey Lane Unavailable [phone] Jaki Nieves PhD Unavailable [phone] Source Comments In the event that this is information that is protected by federal Confidentiality of Substance User Disorder Patient Records, 42 CFR Part 2 prohibits the unauthorized disclosure of these records.[facility] Encounter Details Date Type Department Care Team (Late st Contact Info) Description 12/04/2021 Orders Only NM Transplant Surgery [address] [facility], 19th [address] [place], [place] [address] Sandra Joiner, SKILLED LABOR, SECURITY CONSULTANT [address] [facility] [address] [place] [address] Social History Tobacco Use Types Packs/Day Years [...] NM Transplant Surgery [address] [facility], [address] [place], [place] [address] Apt confirmed-EH documented as of this encounter Visit Diagnoses Diagnosis 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) Liver replaced by transplant Kidney replaced by transplant Vitamin D deficiency documented in this encounter Care Teams Rabble Furnace Tender Relationship Specialty Start Date End Date Juan Laguerre MD [address] [facility] [address] [place] [id number] PCP - General Family Medicine 01/02/18 Aubrey Crabtree III, MD [address] [facility] [address] [place] [address] Hematology and Medical Oncology 10/01/18 Jaki Nieves, PhD [address] [facility] [address] [place], [place] [address] Genetic Counseling 11/27/18 documented as of this encounter
--- OUTSIDE RECORDS SUMMARY | 2025-08-09 09:35 | XMS_ITS | Encounter Summary ---
Author Organization [facility] Address [address] [place] [address] Care Team Providers Care Tiler Name Role Phone Juan Laguerre MD Primary Care Provider [phone] Bro AWAN MD, Aubrey Lane Unavailable [phone] Jaki Nieves PhD Unavailable [phone] Source Comments In the event that this is information that is protected by federal Confidentiality of Substance User Disorder Patient Records, 42 CFR Part 2 prohibits the unauthorized disclosure of these records.[facility] Encounter Details Date Type Department Care Team (Late st Contact Info) Description 02/12/2022 Orders Only NM Transplant Surgery [address] [facility], [address]th [address] [place], [place] [address] Sandra Joiner, TREE FELLER, VP STRATEGIC PARTNERSHIPS [address] [facility] [address] [place] [address] Social History Tobacco Use Types Packs/Day Years [...] [address] [facility], [address] [place] [address] Apt confirmed-EH documented as of this encounter Visit Diagnoses Diagnosis 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) Liver replaced by transplant Kidney replaced by transplant documented in this encounter Care Teams Tiler Relationship Specialty Start Date End Date Juan Laguerre MD [address] [facility] [address] [place], [place] [id number] PCP - General Family Medicine 01/02/18 Aubrey Crabtree III, MD [address] [facility] [address] [place] [address] Hematology and Medical Oncology 10/01/18 Jaki Nieves, PhD [address] [facility] [address] [place], [place] [address] Genetic Counseling 11/27/18 documented as of this encounter
--- OUTSIDE RECORDS SUMMARY | 2025-08-09 09:35 | XMS_ITS | Encounter Summary ---
Author Organization [facility] Address [address] [place] [address] Care Team Providers Care Security Escort Name Role Phone Juan Laguerre MD Primary Care Provider [phone] Bro AWAN MD, Aubrey Lane Unavailable [phone] Jaki Nieves PhD Unavailable [phone] Source Comments In the event that this is information that is protected by federal Confidentiality of Substance User Disorder Patient Records, 42 CFR Part 2 prohibits the unauthorized disclosure of these records.[facility] Encounter Details Date Type Department Care Team (Late st Contact Info) Description 03/12/2022 Orders Only NM Transplant Surgery [address] [facility], 19th [address] [place], [place] [address] Sandra Joiner, ECOMMERCE MANAGER, OPERATIONS REPRESENTATIVE [address] [facility] [address] [place] [address] Social History Tobacco Use Types Packs/Day Years [...] [address] , [address] [place] [address] Apt confirmed-EH documented as of this encounter Procedures Procedure Name Priority Date/Time Associated Diagnosis Comments BK VIRUS QUANT VIRAL LOAD, URINE Routine 03/10/2022 6:34 AM CDT EVEROLIMUS LEVEL Routine 03/10/2022 6:34 AM CDT 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) Kidney replaced by transplant PTH, INTACT Routine 03/10/2022 6:34 AM CDT MYCOPHENOLIC ACID Routine 03/10/2022 6:3 4 AM CDT 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) Kidney replaced by transplant VITAMIN D 25-HYDROXY Routine 03/10/2022 6:34 AM CDT BK VIRUS DNA QUANT PCR, BLOOD Routine 03/10/2022 6:34 AM CDT URINALYSIS WITH MICROSCOPIC Routine 03/10/2022 6:34 AM CDT CBC AND DIFFERENTIAL Routine 03/10/2022 6:34 AM CDT 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) Kidney replaced by transplant HEPATIC FUNCTION PANEL Routine 03/10/2022 6:34 AM CDT RENAL FUNCTION PANEL Routine 03/10/2022 6:34 AM CDT LIPID PANEL (AMA) W/LDL CALC Routine 03/10/2022 6:34 AM CDT documented in this encounter Results * BK Virus Quant Viral Load, Urine (03/10/2022 6:34 AM CDT) BK Quantitation Urine - External 3,150 EXTERNAL LAB 03/10/2022 6:34 AM CDT Narrative EXTERNAL LAB - 03/20/2022 8:42 AM CDT Verified by Monie Siddiqui on 03/20/2022. Edwin Del Toro MD URINE ORDERABLES Final Res ult Performing Organization Address City/[facility]/ZIP Co de Phone Number EXTERNAL LAB * BK Virus DNA Quant PCR, Blood (03/10/2022 6:34 AM CDT) BK Virus DNA, Qn PCR - External NOT DET EXTERNAL LAB 03/10/2022 6:34 AM CDT Narrative EXTERNAL LAB - 03/14/2022 3:31 PM CDT Verified by Monie Siddiqui on 03/14/2022. Edwin Del Toro MD IMMUNOLOGY ORDERABLES Joana l Result Performing Organization Address [facility] Co de Phone Number EXTERNAL LAB * Vitamin D 25-Hydroxy (03/10/2022 6:34 AM CDT) Vitamin D, 25-Hydroxy, Total - External 45 ng/mL EXTERNAL LAB 03/10/2022 6:34 AM CDT Narrative EXTERNAL LAB - 03/10/2022 10:08 PM CDT Verified by Monie Siddiqui on 03/10/2022. Edwin Del Toro MD CHEMISTRY ORDERABLES Final Result Performing Organization Address City/[facility] Co de Phone Number EXTERNAL LAB * (ABNORMAL) Urinalysis with microscopic (03/10/2022 6:34 AM CDT) Specific [place], Urine - External 1.016 EXTERNAL LAB UA pH - External 6.5 5.0 - 8.0 EXTERNAL LAB UA Protein - External Trace(H) Negative EXTERNAL LAB UA Glucose - External Negative EXTERNAL LAB UA Ketones - External [...] UA Nitrate - External Negative EXTERNAL LAB 03/10/2022 6:34 AM CDT Narrative EXTERNAL LAB - 03/10/2022 10:08 PM CDT Verified by Monie Siddiqui on 03/10/2022. us Edwin Del Toro MD URINE ORDERABLES Final Res ult EXTERNAL LAB * (ABNORMAL) Renal Function Panel (03/10/2022 6:34 AM CDT) Sodium - External 138 133 - 145 mmol/L EXTERNAL LAB Potassium - External 5.0 3.5 - 51 mmol/L EXTERNAL LAB Chloride - External 104 96 - 108 mmol/L EXTERNAL LAB CO2 - External 30 21 - 32 mmol/L EXTERNAL LAB Anion Gap - External 9.0 0 - 20.0 mmol/L EXTERNAL LAB Glucose - External 200(H) 80 - 115 mg/dL EXTERNAL LAB Urea Nitrogen - External 31(H) 6 - 19 mg/dL EXTERNAL LAB Creatinine - External 1.70(H) 0.50 - 1.30 mg/dL EXTERNAL LAB Calcium - External 8.9 8.8 - 10.0 mg/dL EXTERNAL LAB Phosphorous - External 3.1 mg/dL EXTERNAL LAB Albumin - External 3.2 EXTERNAL LAB GFR(Others) - External 45 EXTERNAL LAB 03/10/2022 6:34 AM CDT Narrative EXTERNAL LAB - 03/10/2022 10:08 PM CDT Verified by Monie Siddiqui on 03/10/2022. us Edwin Del Toro MD CHEMISTRY ORDERABLES Final Result EXTERNAL LAB * (ABNORMAL) PTH, Intact (03/10/2022 6:34 AM CDT) PTH, Intact - External 77(H) 14 - 72 pg/mL EXTERNAL LAB 03/10/2022 6:34 AM CDT Narrative EXTERNAL LAB - 03/10/2022 10:08 PM CDT Verified by Monie Siddiqui on 03/10/2022. Edwin Del Toro MD CHEMISTRY ORDERABLES Final Result Performing Organization Address [facility] de Phone Number EXTERNAL LAB * (ABNORMAL) Lipid Panel(AMA) w/LDL Calculated (03/10/2022 6:34 AM CDT) Total Cholesterol - External 235(H) mg/dL EXTERNAL LAB Triglycerides - External 438(H) 0 - 149 mg/dL EXTERNAL LAB HDL Cholesterol - External 34(L) 40 - 100 mg/dL EXTERNAL LAB Cholesterol LDL Direct - External 128 <130 mg/dL EXTERNAL LAB 03/10/2022 6:34 AM CDT Narrative EXTERNAL LAB - 03/10/2022 10:08 PM CDT Verified by Monie Siddiqui on 03/10/2022. Edwin Del Toro MD CHEMISTRY ORDERABLES Final Result Performing Organization Address [facility] de Phone Number EXTERNAL LAB * Hepatic Function Panel (03/10/2022 6:34 AM CDT) Total Protein - External 6.8 g/dL EXTERNAL LAB Total Bilirubin - External 0.3 mg/dL EXTERNAL LAB AST (SGOT) - External 17 0 - 37 U/L EXTERNAL LAB ALT (SGPT) - External 25 U/L EXTERNAL LAB Alkaline Phos - External 89 39 - 117 U/L EXTERNAL LAB 03/10/2022 6:34 AM CDT Narrative EXTERNAL LAB - 03/10/2022 10:08 PM CDT Verified by Monie Siddiqui on 03/10/2022. Edwin Del Toro MD CHEMISTRY ORDERABLES Final Result Performing Organization Address [facility] de Phone Number EXTERNAL LAB * Everolimus Level (03/10/2022 6:34 AM CDT) [facility] Everolimus Level - External 5.9 EXTERNAL LAB Blood VEIN SPECIMEN / Unknown 03/10/2022 6:34 AM CDT Narrative EXTERNAL LAB - 03/14/2022 2:00 PM CDT Verified by Monie Siddiqui on 03/14/2022. Edwin Del Toro MD CHEMISTRY ORDERABLES Final Result Performing Organization Address [facility] de Phone Number EXTERNAL LAB * (ABNORMAL) Mycophenolic Acid (03/10/2022 6:34 AM CDT) [facility] Mycophenolic Acid - External 2.1(L) 10 - 35 ug/mL EXTERNAL LAB Blood VEIN SPECIMEN / Unknown 03/10/2022 6:34 AM CDT Narrative EXTERNAL LAB - 03/14/2022 2:00 PM CDT Verified by Monie Siddiqui on 03/14/2022. Edwin Del Toro MD CHEMISTRY ORDERABLES Final Result Performing Organization Address [facility] de Phone Number EXTERNAL LAB * (ABNORMAL) CBC with Differential (03/10/2022 6:34 AM CDT) [facility] Neutrophils Abs (cells/uL) - External 5.74 1.40 - 7.30 cells/uL EXTERNAL LAB Lymph Absolute - External 3.11(H) 10(3)/mcL EXTERNAL LAB [place] Absolute - External 0.58 0.10 - 0.80 10(3)/mcL EXTERNAL LAB - External 0.10 0.00 - 0.30 10(3)/mcL EXTERNAL LAB Basophil Absolute - External 0.19(H) 0.00 - 0 10(3)/mcL EXTERNAL LAB Neutrophils - External 59 40 - 68 % EXTERNAL LAB Lymphocytes - External 32 19 - 49 % EXTERNAL LAB Monocytes - External 6 3 - 13 % EXTERNAL LAB Eosinophils - External 1 0 - 8 % EXTERNAL LAB Basophils - External 2(H) 0 - 1 % EXTERNAL LAB White Blood Cells - External 9.73 10(3)/mcL EXTERNAL LAB Red Blood Cells - External 6.86(L) 420 - 580 10(6)/mcL EXTERNAL LAB Hematocrit - External 54.7(H) % EXTERNAL LAB Platelets - External 172 140 - 445 10(3)/mcL EXTERNAL LAB Hemoglobin - External 16.3 % EXTERNAL LAB MCV - External 79.7 EXTERNAL LAB MCHC - External 23.8 EXTERNAL LAB MCH - External 29.8 EXTERNAL LAB RDW - External 19.9 EXTERNAL LAB Blood VEIN SPECIMEN / Unknown 03/10/2022 6:34 AM CDT Narrative EXTERNAL LAB - 03/10/2022 10:08 PM CDT Verified by Monie Siddiqui on 03/10/2022. Edwin Del Toro MD HEMATOLOGY ORDERABLES Joana l Result EXTERNAL LAB documented in this encounter Visit Diagnoses Diagnosis Liver replaced by transplant ([facility]) Liver replaced by transplant Kidney replaced by transplant documented in this encounter Care Teams Security Escort Relationship Specialty Start Date End Date Juan Laguerre MD [address] [facility] [address] [place] [id number] PCP - General Family Medicine 01/02/18 Aubrey Crabtree III, MD [address] [facility] [address] [place] [address] Hematology and Medical Oncology 10/01/18 Jaki Nieves, PhD [address] [facility] [address] [place] [address] Genetic Counseling 11/27/18 documented as of this encounter
--- OUTSIDE RECORDS SUMMARY | 2025-08-09 09:35 | XMS_ITS | Encounter Summary ---
Author Organization [facility] Address [address] [place] [address] Care Team Providers Care Spray Machine Loader Name Role Phone Juan Laguerre MD Primary Care Provider [phone] Bro AWAN MD, Aubrey Lane Unavailable [phone] Jaki Nieves PhD Unavailable [phone] Source Comments In the event that this is information that is protected by federal Confidentiality of Substance User Disorder Patient Records, 42 CFR Part 2 prohibits the unauthorized disclosure of these records.[facility] Encounter Details Date Type Department Care Team (Late st Contact Info) Description 01/15/2022 Orders Only NM Transplant Surgery [address] [facility], [address] [place], [place] [address] Sandra Joiner, EVENT DECORATOR AND DESIGNER, ASSEMBLER MECHANICAL ORDNANCE [address] [facility] [address] [place] [address] Social History Tobacco Use Types Packs/Day Years [...] [address] [place] [address] Apt confirmed-EH documented as of this encounter Procedures Procedure Name Priority Date/Time Associated Diagnosis Comments BK VIRUS DNA QUANT PCR, BLOOD Routine 01/13/2022 8:43 AM SOCIAL SERVICES AIDE BK VIRUS QUANT VIRAL LOAD, URINE Routine 01/13/2022 6:43 AM SOCIAL SERVICES AIDE EVEROLIMUS LEVEL Routine 01/13/2022 6:43 AM SOCIAL SERVICES AIDE PTH, INTACT Routine 01/13/2022 6:43 AM SOCIAL SERVICES AIDE MYCOPHENOLIC ACID Routine 01/13/2022 6:4 3 AM SOCIAL SERVICES AIDE VITAMIN D 25-HYDROXY Routine 01/13/2022 6:43 AM SOCIAL SERVICES AIDE URINALYSIS WITH MICROSCOPIC Routine 01/13/2022 6:43 AM SOCIAL SERVICES AIDE CBC AND DIFFERENTIAL Routine 01/13/2022 6:43 AM SOCIAL SERVICES AIDE 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) Kidney replaced by transplant PHOSPHORUS LEVEL Routine 01/13/2022 6:43 AM SOCIAL SERVICES AIDE 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 Edwin Del Toro MD IMMUNOLOGY ORDERABLES Joana l Result EXTERNAL LAB * BK Virus Quant Viral Load, Urine (01/13/2022 6:43 AM SOCIAL SERVICES AIDE) BK Quantitation Urine - External 16,500 EXTERNAL LAB 01/13/2022 6:43 AM SOCIAL SERVICES AIDE Narrative EXTERNAL LAB - 01/21/2022 6:09 PM CDT Verified by Monie Siddiqui on 01/21/2022. Edwin Del Toro MD URINE ORDERABLES Final Res ult Performing Organization Address City/[facility]/ZIP Co de Phone Number EXTERNAL LAB * Mycophenolic Acid (01/13/2022 6:43 AM SOCIAL SERVICES AIDE) Mycophenolic Acid - External 2.3 1.0 - 3.5 ug/mL EXTERNAL LAB 01/13/2022 6:43 AM SOCIAL SERVICES AIDE Narrative EXTERNAL LAB - 01/16/2022 2:08 PM CDT Verified by Monie Siddiqui on 01/16/2022. Edwin Del Toro MD CHEMISTRY ORDERABLES Final Result EXTERNAL LAB * Everolimus Level (01/13/2022 6:43 AM SOCIAL SERVICES AIDE) Everolimus Level - External 4.9 EXTERNAL LAB 01/13/2022 6:43 AM SOCIAL SERVICES AIDE Narrative EXTERNAL LAB - 01/15/2022 12:18 PM CDT Verified by Koki Burks on 01/15/2022. Physician Non-Staff CHEMISTRY ORDERABLES Final R esult Performing Organization Address [facility] de Phone Number EXTERNAL LAB * Vitamin D 25-Hydroxy (01/13/2022 6:43 AM SOCIAL SERVICES AIDE) Vitamin D, 25-Hydroxy, Total - External 34 ng/mL EXTERNAL LAB 01/13/2022 6:43 AM SOCIAL SERVICES AIDE Narrative EXTERNAL LAB - 01/14/2022 5:49 PM CDT Verified by Monie Siddiqui on 01/14/2022. Edwin Del Toro MD CHEMISTRY ORDERABLES Final Result Performing Organization Address [facility] de Phone Number EXTERNAL LAB * (ABNORMAL) Urinalysis with microscopic (01/13/2022 6:43 AM SOCIAL SERVICES AIDE) Specific [place], Urine - External 1.015 EXTERNAL LAB UA [...] External 0-5 0-5, /hpf EXTERNAL LAB UA WBC - External 0-5 EXTERNAL LAB 01/13/2022 6:43 AM SOCIAL SERVICES AIDE Narrative EXTERNAL LAB - 01/14/2022 5:49 PM CDT Verified by Monie Siddiqui on 01/14/2022. Edwin Del Toro MD URINE ORDERABLES Final Res ult Performing Organization Address [facility] de Phone Number EXTERNAL LAB * PTH, Intact (01/13/2022 6:43 AM SOCIAL SERVICES AIDE) PTH, Intact - External 72 14 - 72 pg/mL EXTERNAL LAB 01/13/2022 6:43 AM SOCIAL SERVICES AIDE Narrative EXTERNAL LAB - 01/14/2022 3:33 PM CDT Verified by Monie Siddiqui on 01/14/2022. Edwin Del Toro MD CHEMISTRY ORDERABLES Final Result Performing Organization Address [facility] de Phone Number EXTERNAL LAB * (ABNORMAL) Lipid Panel(AMA) w/LDL Calculated (01/13/2022 6:43 AM SOCIAL SERVICES AIDE) [facility] Total Cholesterol - External 234(H) 0 - 199 mg/dL EXTERNAL LAB Triglycerides - External 398(H) 0 - 149 mg/dL EXTERNAL LAB HDL Cholesterol - External 41 40 - 100 mg/dL EXTERNAL LAB Cholesterol LDL Direct - External 113 <130 mg/dL EXTERNAL LAB 01/13/2022 6:43 AM SOCIAL SERVICES AIDE Narrative EXTERNAL LAB - 01/14/2022 3:33 PM CDT Verified by Monie Siddiqui on 01/14/2022. Edwin Del Toro MD CHEMISTRY ORDERABLES Final Result Performing Organization Address [facility] de Phone Number EXTERNAL LAB * (ABNORMAL) CBC with Differential (01/13/2022 6:43 AM SOCIAL SERVICES AIDE) [facility] White Blood Cells - External 10.44 10(3)/mcL EXTERNAL LAB Red Blood Cells - External 6.67(H) 10(6)/mcL EXTERNAL LAB Hemoglobin - External 16.1 6 - 17.4 g/dL EXTERNAL LAB Hematocrit - External 53.3(H) % EXTERNAL LAB MCV - External 79.9(L) fL EXTERNAL LAB MCH - External 24.1(L) pg EXTERNAL LAB MCHC - External 30.2(L) 31.5 - 36.0 g/dL EXTERNAL LAB Platelets - External 160 EXTERNAL LAB RDW - External 20.6(H) 0 - 15.0 % EXTERNAL LAB Lymphocytes - External 35.9 % EXTERNAL LAB Basophils - External 1.3 % EXTERNAL LAB Neutrophils Abs (cells/uL) - External 4.98 1.40 - 7.30 cells/uL EXTERNAL LAB - External 0.24 0.00 - 0.30 10(3)/mcL EXTERNAL LAB Basophil Absolute - External 0.14(H) 0.00 - 0.10 10(3)/mcL EXTERNAL LAB Neutrophils - External 47.7 % EXTERNAL LAB Eosinophils - External 2.3 EXTERNAL LAB Monocytes - External 12.5 EXTERNAL LAB [place] Absolute - External 1.30(H) 0.10 - 0.80 10(3)/mcL EXTERNAL LAB Lymph Absolute - External 3.7 10(3)/mcL EXTERNAL LAB Blood VEIN SPECIMEN / Unknown 01/13/2022 6:43 AM SOCIAL SERVICES AIDE Narrative EXTERNAL LAB - 01/14/2022 3:33 PM CDT Verified by Monie Siddiqui on 01/14/2022. Edwin Del Toro MD HEMATOLOGY ORDERABLES Joana l Result EXTERNAL LAB * Phosphorus Level (01/13/2022 6:43 AM SOCIAL SERVICES AIDE) Phosphorous - External 3.2 2.6 - 4.5 mg/dL EXTERNAL LAB Blood VEIN SPECIMEN / Unknown 01/13/2022 6:43 AM SOCIAL SERVICES AIDE Narrative EXTERNAL LAB - 01/14/2022 3:33 PM CDT Verified by Monie Siddiqui on 01/14/2022. Edwin Del Toro MD CHEMISTRY ORDERABLES Final Result EXTERNAL LAB * (ABNORMAL) Comprehensive Metabolic Panel (01/13/2022 6:43 AM SOCIAL SERVICES AIDE) Chloride - External 106 96 - 108 mmol/L EXTERNAL LAB CO2 - External 28 21 - 32 mmol/L EXTERNAL LAB Anion Gap - External 8.2 0 - 20.0 mmol/L EXTERNAL LAB Glucose - External 156(H) 80 - 115 mg/dL EXTERNAL LAB Urea Nitrogen - External 22(H) 6 - 19 mg/dL EXTERNAL LAB Creatinine - External 1.50(H) 0.50 - 1.30 mg/dL EXTERNAL LAB Total Protein - External 7.0 6.0 - 8.2 g/dL EXTERNAL LAB Albumin - External 3.1(L) 3.4 - 48 g/dL EXTERNAL LAB Calcium - External 8.6(L) 8.8 - 10.0 mg/dL EXTERNAL LAB Total Bilirubin - External 0.4 0.0 - 1.0 mg/dL EXTERNAL LAB AST (SGOT) - External 20 0 - 37 U/L EXTERNAL LAB ALT (SGPT) - External 24 12 - 55 U/L EXTERNAL LAB Alkaline Phos - External 96 39 - 117 U/L EXTERNAL LAB Sodium - External 138 EXTERNAL LAB Potassium - External 5.2 EXTERNAL LAB GFR(Others) - External 53 EXTERNAL LAB Blood VEIN SPECIMEN / Unknown 01/13/2022 6:43 AM SOCIAL SERVICES AIDE Narrative EXTERNAL LAB - 01/14/2022 3:33 PM CDT Verified by Monie Siddiqui on 01/14/2022. 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
--- OUTSIDE RECORDS SUMMARY | 2025-08-09 09:35 | XMS_ITS | Encounter Summary ---
Author Organization [facility] Address [address] [place] [address] Care Team Providers Care Manager Reliability Name Role Phone Juan Laguerre MD Primary Care Provider [phone] Bro AWAN MD, Aubrey Lane Unavailable [phone] Jaki Nieves PhD Unavailable [phone] Source Comments In the event that this is information that is protected by federal Confidentiality of Substance User Disorder Patient Records, 42 CFR Part 2 prohibits the unauthorized disclosure of these records.[facility] Encounter Details Date Type Department Care Team (Late st Contact Info) Description 05/07/2022 Orders Only NM Transplant Surgery [address] [facility], [address]th [address] [place], [place] [address] Sandra Joiner, OPERATIONS ASST, HARBOR PILOT [address] [facility] [address] [place] [address] Social History Tobacco Use Types Packs/Day Years [...] [address] , 19th [address] [place] [address] Apt confirmed-EH documented as of this encounter Procedures Procedure Name Priority Date/Time Associated Diagnosis Comments BK VIRUS QUANT VIRAL LOAD, URINE Routine 05/12/2022 6:25 AM CDT EVEROLIMUS LEVEL Routine 05/12/2022 6:25 AM CDT PTH, INTACT Routine 05/12/2022 6:25 AM CDT MYCOPHENOLIC ACID Routine 05/12/2022 6:2 5 AM CDT VITAMIN D 25-HYDROXY Routine 05/12/2022 6:25 AM CDT BK VIRUS DNA QUANT PCR, BLOOD Routine 05/12/2022 6:25 AM CDT URINALYSIS WITH MICROSCOPIC Routine 05/12/2022 6:25 AM CDT CBC AND DIFFERENTIAL Routine 05/12/2022 6:25 AM CDT 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 Edwin Del Toro MD IMMUNOLOGY ORDERABLES Joana l Result EXTERNAL LAB * BK Virus Quant Viral Load, Urine (05/12/2022 6:25 AM CDT) Pathologist [facility] BK Quantitation Urine - External 50,200 EXTERNAL LAB 05/12/2022 6:25 AM CDT Narrative EXTERNAL LAB - 05/16/2022 3:53 PM CDT Verified by Monie Siddiqui on 05/16/2022. Edwin DelT oro MD URINE ORDERABLES Final Res ult EXTERNAL LAB * (ABNORMAL) Mycophenolic Acid (05/12/2022 6:25 AM CDT) Pathologist [facility] Mycophenolic Acid - External 2.8(L) 10 - 35 ug/mL EXTERNAL LAB 05/12/2022 6:25 AM CDT Narrative EXTERNAL LAB - 05/16/2022 9:34 AM CDT Verified by Monie Siddiqui on 05/16/2022. Edwin Del Toro MD CHEMISTRY ORDERABLES Final Result EXTERNAL LAB * Everolimus Level (05/12/2022 6:25 AM CDT) Pathologist [facility] Everolimus Level - External 5.8 EXTERNAL LAB 05/12/2022 6:25 AM CDT Narrative EXTERNAL LAB - 05/15/2022 2:22 PM CDT Verified by Monie Siddiqui on 05/15/2022. Edwin Del Toro MD CHEMISTRY ORDERABLES Final Result Performing Organization Address [facility] de Phone Number EXTERNAL LAB * Vitamin D 25-Hydroxy (05/12/2022 6:25 AM CDT) Vitamin D, 25-Hydroxy, Total - External 43 ng/mL EXTERNAL LAB 05/12/2022 6:25 AM CDT Narrative EXTERNAL LAB - 05/13/2022 6:33 PM CDT Verified by Monie Siddiqui on 05/13/2022. Edwin Del Toro MD CHEMISTRY ORDERABLES Final Result Performing Organization Address [facility] Phone Number EXTERNAL LAB * (ABNORMAL) Urinalysis with microscopic (05/12/2022 6:25 AM CDT) Specific [place], Urine - External 1.013 EXTERNAL LAB UA [...] - External 0-5 0-5, /hpf EXTERNAL LAB 05/12/2022 6:25 AM CDT Narrative EXTERNAL LAB - 05/13/2022 6:33 PM CDT Verified by Monie Siddiqui on 05/13/2022. Edwin Del Toro MD URINE ORDERABLES Final Res ult Performing Organization Address [facility] de Phone Number EXTERNAL LAB * (ABNORMAL) PTH, Intact (05/12/2022 6:25 AM CDT) PTH, Intact - External 86(H) 14 - 72 pg/mL EXTERNAL LAB 05/12/2022 6:25 AM CDT Narrative EXTERNAL LAB - 05/13/2022 6:33 PM CDT Verified by Monie Siddiqui on 05/13/2022. Edwin Del Toro MD CHEMISTRY ORDERABLES Final Result Performing Organization Address [facility] de Phone Number EXTERNAL LAB * (ABNORMAL) Lipid Panel(AMA) w/LDL Calculated (05/12/2022 6:25 AM CDT) Pathologist [facility] Total Cholesterol - External 229(H) 0 - 199 mg/dL EXTERNAL LAB Triglycerides - External 576(H) mg/dL EXTERNAL LAB HDL Cholesterol - External 35(L) 40 - 100 mg/dL EXTERNAL LAB Cholesterol LDL Direct - External 98 <130 mg/dL EXTERNAL LAB 05/12/2022 6:25 AM CDT Narrative EXTERNAL LAB - 05/13/2022 6:33 PM CDT Verified by Monie Siddiqui on 05/13/2022. Edwin Del Toro MD CHEMISTRY ORDERABLES Final Result Performing Organization Address [facility] de Phone Number EXTERNAL LAB * (ABNORMAL) CBC with Differential (05/12/2022 6:25 AM CDT) Pathologist [facility] White Blood Cells - External 10.88 10(3)/mcL EXTERNAL LAB Red Blood Cells - External 7.09(H) 10(6)/mcL EXTERNAL LAB Hemoglobin - External 16.3 6 - 17.4 g/dL EXTERNAL LAB Hematocrit - External 55(H) % EXTERNAL LAB MCV - External 77.6(L) fL EXTERNAL LAB MCH - External 23(L) 26.5 - 33.9 pg EXTERNAL LAB MCHC - External 29.6(L) g/dL EXTERNAL LAB Platelets - External 118 40 - 445 10(3)/mcL EXTERNAL LAB RDW - External 20.1(H) 0 - 15.0 % EXTERNAL LAB Lymphocytes - External 37.3 % EXTERNAL LAB Basophils - External 1.0 % EXTERNAL LAB Neutrophils Abs (cells/uL) - External 4.99 1.40 - 7.30 cells/uL EXTERNAL LAB Lymph Absolute - External 4.06(H) 10(3)/mcL EXTERNAL LAB Trinity Absolute - External 1.38(H) 10(3)/mcL EXTERNAL LAB - External 0.29 0.00 - 0.30 10(3)/mcL EXTERNAL LAB Basophil Absolute - External 0.11(H) 0.00 - 0.10 10(3)/mcL EXTERNAL LAB Monocytes - External 12.7 % EXTERNAL LAB Eosinophils - External 2.7 % EXTERNAL LAB Neutrophils - External 45.8 % EXTERNAL LAB Blood VEIN SPECIMEN / Unknown 05/12/2022 6:25 AM CDT Narrative EXTERNAL LAB - 05/13/2022 6:33 PM CDT Verified by Monie Siddiqui on 05/13/2022. Edwin Del Toro MD HEMATOLOGY ORDERABLES Joana l Result Performing Organization Address [facility] de Phone Number EXTERNAL LAB * (ABNORMAL) Phosphorus Level (05/12/2022 6:25 AM CDT) Phosphorous - External 2.4(L) mg/dL EXTERNAL LAB Blood VEIN SPECIMEN / Unknown 05/12/2022 6:25 AM CDT Narrative EXTERNAL LAB - 05/13/2022 6:33 PM CDT Verified by Monie Siddiqui on 05/13/2022. Edwin Del Toro MD CHEMISTRY ORDERABLES Final Result Performing Organization Address City/[facility]/ZIP Co de Phone Number EXTERNAL LAB * (ABNORMAL) Comprehensive Metabolic Panel (05/12/2022 6:25 AM CDT) Chloride - External 105 96 - 108 mmol/L EXTERNAL LAB CO2 - External 26 21 - 32 mmol/L EXTERNAL LAB Anion Gap - External 9.7 0 - 20.0 mmol/L EXTERNAL LAB Glucose - External 179(H) 80 - 115 mg/dL EXTERNAL LAB Urea Nitrogen - External 28(H) mg/dL EXTERNAL LAB Creatinine - External 1.50(H) mg/dL EXTERNAL LAB Total Protein - External 6.4 6.0 - 8.2 g/dL EXTERNAL LAB Albumin - External 3.1(L) 3.4 - 48 g/dL EXTERNAL LAB Calcium - External 8.5(L) 8.8 - 10.0 mg/dL EXTERNAL LAB Total Bilirubin - External 0.4 0.0 - 1.0 mg/dL EXTERNAL LAB AST (SGOT) - External 17 0 - 37 U/L EXTERNAL LAB ALT (SGPT) - External 22 12 - 55 U/L EXTERNAL LAB Alkaline Phos - External 9.0(L) 39 - 117 U/L EXTERNAL LAB Sodium - External 136 EXTERNAL LAB Potassium - External 4.7 EXTERNAL LAB GFR(Others) - External 53 EXTERNAL LAB Blood VEIN SPECIMEN / Unknown 05/12/2022 6:25 AM CDT Narrative EXTERNAL LAB - 05/13/2022 6:33 PM CDT Verified by Monie Siddiqui on 05/13/2022. 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
--- OUTSIDE RECORDS SUMMARY | 2025-08-09 09:35 | XMS_ITS | Encounter Summary ---
Author Organization [facility] Address [address] [place] [address] Care Team Providers Care Ehr Trainer Name Role Phone Juan Laguerre MD Primary Care Provider [phone] Bro AWAN MD, Aubrey Lane Unavailable [phone] Jaki Nieves PhD Unavailable [phone] Source Comments In the event that this is information that is protected by federal Confidentiality of Substance User Disorder Patient Records, 42 CFR Part 2 prohibits the unauthorized disclosure of these records.[facility] Encounter Details Date Type Department Care Team (Late st Contact Info) Description 11/26/2022 Orders Only NM Transplant Surgery [address] [facility], [address] [place], [place] [address] Cathleen Gallegos MD [address] [facility] [address] [address] Social History Tobacco Use Types Packs/Day Years [...] NM Transplant Surgery [address] [facility], [address] [place] [address] Apt confirmed-EH documented as of this encounter Procedures Procedure Name Priority Date/Time Associated Diagnosis Comments PTH, INTACT Routine 12/18/2022 6:32 AM TOUR AGENT BK VIRUS DNA QUANT PCR, BLOOD Routine 12/18/2022 6:32 AM TOUR AGENT URINALYSIS WITH MICROSCOPIC Routine 12/18/2022 6:32 AM TOUR AGENT CBC AND DIFFERENTIAL Routine 12/18/2022 6:32 AM TOUR AGENT LIPID PANEL (AMA) W/LDL CALC Routine 12/18/2022 6:32 AM TOUR AGENT COMPREHENSIVE METABOLIC PANEL Routine 12/18/2022 6:32 AM TOUR AGENT documented in this encounter Results * BK Virus DNA Quant PCR, Blood (12/18/2022 6:32 AM TOUR AGENT) Pathologist [facility] BK Virus DNA, Qn PCR - External NOT DET EXTERNAL LAB 12/18/2022 6:32 AM TOUR AGENT Narrative EXTERNAL LAB - 12/21/2022 8:18 AM TOUR AGENT Verified by Monie Siddiqui on 12/21/2022. us Edwin Del Toro MD IMMUNOLOGY ORDERABLES Joana l Result EXTERNAL LAB * (ABNORMAL) Urinalysis with microscopic (12/18/2022 6:32 AM TOUR AGENT) Specific [place], Urine - External 1.011 1.003 - 1.035 EXTERNAL LAB UA pH [...] - External Yellow Yellow EXTERNAL LAB UA WBC - External 0-5 0-5, /hpf EXTERNAL LAB UA RBC - External 0-5 0-5, /hpf EXTERNAL LAB UA Appearance - External CLEAR EXTERNAL LAB 12/18/2022 6:32 AM TOUR AGENT Narrative EXTERNAL LAB - 12/18/2022 12:37 PM TOUR AGENT Verified by Monie Siddiqui on 12/18/2022. Edwin Del Toro MD URINE ORDERABLES Final Res ult EXTERNAL LAB * (ABNORMAL) PTH, Intact (12/18/2022 6:32 AM TOUR AGENT) PTH, Intact - External 85(H) 14 - 72 pg/mL EXTERNAL LAB 12/18/2022 6:32 AM TOUR AGENT Narrative EXTERNAL LAB - 12/18/2022 12:37 PM TOUR AGENT Verified by Monie Siddiqui on 12/18/2022. Edwin Del Toro MD CHEMISTRY ORDERABLES Final Result EXTERNAL LAB * (ABNORMAL) Lipid Panel(AMA) w/LDL Calculated (12/18/2022 6:32 AM TOUR AGENT) Total Cholesterol - External 255(H) 0 - 199 mg/dL EXTERNAL LAB Triglycerides - External 436(H) 0 - 149 mg/dL EXTERNAL LAB HDL Cholesterol - External 37(L) 40 - 100 mg/dL EXTERNAL LAB Cholesterol LDL Direct - External 145(H) <130 mg/dL EXTERNAL LAB 12/18/2022 6:32 AM TOUR AGENT Narrative EXTERNAL LAB - 12/18/2022 12:37 PM TOUR AGENT Verified by Monie Siddiqui on 12/18/2022. Edwin Del Toro MD CHEMISTRY ORDERABLES Final Result Performing Organization Address [facility] de Phone Number EXTERNAL LAB * (ABNORMAL) Comprehensive Metabolic Panel (12/18/2022 6:32 AM TOUR AGENT) Pathologist [facility] Chloride - External 104 96 - 108 mmol/L EXTERNAL LAB CO2 - External 27 21 - 32 mmol/L EXTERNAL LAB Anion Gap - External 10.7 0 - 20.0 mmol/L EXTERNAL LAB Glucose - External 118(H) 80 - 115 mg/dL EXTERNAL LAB Urea Nitrogen - External 29(H) 6 - 19 mg/dL EXTERNAL LAB Creatinine - External 1.60(H) 0.50 - 1.30 mg/dL EXTERNAL LAB Total Protein - External 6.7 6.0 - 8.2 g/dL EXTERNAL LAB Albumin - External 3.0(L) 3.4 - 48 g/dL EXTERNAL LAB Calcium - External 8.7(L) 8.8 - 10.0 mg/dL EXTERNAL LAB Total Bilirubin - External 0 0.0 - 1.0 mg/dL EXTERNAL LAB AST (SGOT) - External 17 0 - 37 U/L EXTERNAL LAB ALT (SGPT) - External 22 12 - 55 U/L EXTERNAL LAB Alkaline Phos - External 77 39 - 117 U/L EXTERNAL LAB GFR(Others) - External 49 EXTERNAL LAB 12/18/2022 6:32 AM TOUR AGENT Narrative EXTERNAL LAB - 12/18/2022 12:37 PM TOUR AGENT Verified by Monie Siddiqui on 12/18/2022. Edwin Del Toro MD CHEMISTRY ORDERABLES Final Result Performing Organization Address [facility] de Phone Number EXTERNAL LAB * (ABNORMAL) CBC with Differential (12/18/2022 6:32 AM TOUR AGENT) Pathologist [facility] White Blood Cells - External 10.50 10(3)/mcL EXTERNAL LAB Red Blood Cells - External 7.16(H) 10(6)/mcL EXTERNAL LAB Hemoglobin - External 16.2 6 - 17.4 g/dL EXTERNAL LAB Hematocrit - External 55.5(H) % EXTERNAL LAB MCV - External 77.5(L) fL EXTERNAL LAB MCH - External 22.6(L) pg EXTERNAL LAB MCHC - External 29.2(L) g/dL EXTERNAL LAB Platelets - External 274 EXTERNAL LAB RDW - External 20.6(H) % EXTERNAL LAB Neutrophils - External 49.1 % EXTERNAL LAB Lymphocytes - External 34.7 % EXTERNAL LAB Basophils - External 1.3 % EXTERNAL LAB Neutrophils Abs (cells/uL) - External 5.16 1.40 - 7.30 cells/uL EXTERNAL LAB [place] Absolute - External 1.12(H) 0.10 - 0.80 10(3)/mcL EXTERNAL LAB - External 0.40(H) 0.00 - 0.30 10(3)/mcL EXTERNAL LAB Basophil Absolute - External 0.14(H) 0.00 - 0.10 10(3)/mcL EXTERNAL LAB Eosinophils - External 3.8 EXTERNAL LAB Monocytes - External 10.7 EXTERNAL LAB 12/18/2022 6:32 AM TOUR AGENT Narrative EXTERNAL LAB - 12/18/2022 12:37 PM TOUR AGENT Verified by Monie Siddiqui on 12/18/2022. us Edwin Del Toro MD HEMATOLOGY ORDERABLES Joana l Result EXTERNAL LAB documented in this encounter Visit Diagnoses Diagnosis Kidney transplant 01/02/2008 documented in this encounter Care Teams Ehr Trainer Relationship Specialty Start Date End Date Juan Laguerre MD [address] [facility] [address] [place] [address] PCP - General Family Medicine 01/02/18 Aubrey Crabtree III, MD [address] [facility] [address], [place] [id number] Hematology and Medical Oncology 10/01/18 Jaki Nieves, PhD [address] [facility] [address] [place] [address] Genetic Counseling 1/24/19 documented as of this encounter
--- OUTSIDE RECORDS SUMMARY | 2025-08-09 09:35 | XMS_ITS | Encounter Summary ---
Author Organization [facility] Address [address] [place] [address] Care Team Providers Care Behavioral Health Consultant Name Role Phone Juan Laguerre MD Primary Care Provider [phone] Bro AWAN MD, Aubrey Lane Unavailable [phone] Jaki Nieves PhD Unavailable [phone] Source Comments In the event that this is information that is protected by federal Confidentiality of Substance User Disorder Patient Records, 42 CFR Part 2 prohibits the unauthorized disclosure of these records.[facility] Encounter Details Date Type Department Care Team (Late Contact Info) Description 05/15/2021 Orders Only NM Transplant Surgery [address] [facility], 19th [address] [place] [address] Linette Almaguer RN Social History Tobacco Use [...] Office Visit NM Transplant Surgery [address] [facility], [address] [place] [address] Apt confirmed-EH documented as of this encounter Visit Diagnoses Diagnosis 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 transplant documented in this encounter Care Teams Behavioral Health Consultant Relationship Specialty Start Date End Date Juan Laguerre MD [address] [facility] [address] [place] [address] PCP - General Family Medicine 01/02/18 Aubrey Crabtree III, MD [address] [facility] [address] [place] [address] Hematology and Medical Oncology 10/01/18 Jaki Nieves, PhD [address] [facility] [address] [place] [address] Genetic Counseling 11/27/18 documented as of this encounter
--- OUTSIDE RECORDS SUMMARY | 2025-08-09 09:35 | XMS_ITS | Encounter Summary ---
Author Organization [facility] Address [address] [place] [address] Care Team Providers Care Contract Admin Name Role Phone Juan Laguerre MD Primary Care Provider [phone] Bro AWAN MD, Aubrey Lane Unavailable [phone] Jaki Nieves PhD Unavailable [phone] Source Comments In the event that this is information that is protected by federal Confidentiality of Substance User Disorder Patient Records, 42 CFR Part 2 prohibits the unauthorized disclosure of these records.[facility] Encounter Details Date Type Department Care Team (Late st Contact Info) Description 07/03/2021 Orders Only NM Transplant Surgery [address] [facility], [address]th [address] [place], [place] [address] Sandra Joiner, LEAK HUNTER, DISTRIBUTION AGENT [address] [facility] [address] [place] [address] Social History Tobacco Use Types Packs/Day Years [...] [facility], [address] Floor [address] [place] [address] Apt confirmed-EH documented as of this encounter Visit Diagnoses Diagnosis 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) Liver replaced by transplant Kidney replaced by transplant documented in this encounter Care Teams Contract Admin Relationship Specialty Start Date End Date Juan Laguerre MD [address] [facility] [address] [place], [place] [id number] PCP - General Family Medicine 01/02/18 Aubrey Crabtree III, MD [address] [facility] [address] [place] [address] Hematology and Medical Oncology 10/01/18 Jaki Nieves, PhD [address] [facility] [address] [place], [place] [address] Genetic Counseling 11/27/18 documented as of this encounter
--- OUTSIDE RECORDS SUMMARY | 2025-08-09 09:35 | XMS_ITS | Encounter Summary ---
Author Organization [facility] Address [address] [place] [address] Care Team Providers Care Clerk Of Works Name Role Phone Juan Laguerre MD Primary Care Provider [phone] Bro AWAN MD, Aubrey Lane Unavailable [phone] Jaki Nieves PhD Unavailable [phone] Source Comments In the event that this is information that is protected by federal Confidentiality of Substance User Disorder Patient Records, 42 CFR Part 2 prohibits the unauthorized disclosure of these records.[facility] Encounter Details Date Type Department Care Team (Late Contact Info) Description 11/05/2018 Procedure Pass [place] Radiology [address], [address]th [place] [address] Social History Tobacco Use Types Packs/Day Years [...] 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
--- OUTSIDE RECORDS SUMMARY | 2025-08-09 09:35 | XMS_ITS | Encounter Summary ---
Author Organization [facility] Address [address] [place] [address] Care Team Providers Care Bagel Maker Name Role Phone Juan Laguerre MD Primary Care Provider [phone] Bro AWAN MD, Aubrey Lane Unavailable [phone] Jaki Nieves PhD Unavailable [phone] Source Comments In the event that this is information that is protected by federal Confidentiality of Substance User Disorder Patient Records, 42 CFR Part 2 prohibits the unauthorized disclosure of these records.[facility] Encounter Details Date Type Department Care Team (Late st Contact Info) Description 04/09/2022 Orders Only NM Transplant Surgery [address] [facility], [address]th [address] [place], [place] [address] Sandra Joiner, PUFF IRONER, CRIME LAB ANALYST [address] [facility] [address] [place] [address] Social History Tobacco Use Types Packs/Day Years [...] Visit [place] Transplant Surgery [address] [facility], 19[address] [place] [address] Apt confirmed-EH documented as of this encounter Visit Diagnoses Diagnosis 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) Liver replaced by transplant Kidney replaced by transplant documented in this encounter Care Teams Bagel Maker Relationship Specialty Start Date End Date Juan Laguerre MD [address] [facility] [address] [place], [place] [phone] PCP - General Family Medicine 01/02/18 Aubrey Crabtree III, MD [address] [facility] [address] [place] [address] Hematology and Medical Oncology 10/01/18 Jaki Nieves, PhD [address] [facility] [address] [place], [place] [address] Genetic Counseling 11/27/18 documented as of this encounter
--- OUTSIDE RECORDS SUMMARY | 2025-08-09 09:35 | XMS_ITS | Encounter Summary ---
Author Organization [facility] Address [address] [place] [address] Care Team Providers Care Core Drill Operator Helper Name Role Phone Juan Laguerre MD Primary Care Provider [phone] Bro AWAN MD, Aubrey Lane Unavailable [phone] Jaki Nieves PhD Unavailable [phone] Source Comments In the event that this is information that is protected by federal Confidentiality of Substance User Disorder Patient Records, 42 CFR Part 2 prohibits the unauthorized disclosure of these records.[facility] Encounter Details Date Type Department Care Team (Late Contact Info) Description 03/27/2021 Orders Only NM Transplant Surgery [address] [facility], 19th [address] [place] [address] Linette Almaguer RN Social History Tobacco Use [...] Upcoming Encounters Date Type Department Care Team ([facility] Contact Info) Description 07/15/2026 1:00 PM CDT Office Visit [place] Transplant Surgery [address], 19[address] [place] [address] Apt confirmed-EH documented as of this encounter Procedures Procedure Name Priority Date/Time Associated Diagnosis Comments URINALYSIS WITH MICROSCOPIC Routine 05/31/2021 6:41 AM CDT documented in this encounter Results * (ABNORMAL) Urinalysis with microscopic (05/31/2021 6:41 AM CDT) Specific [place], Urine - External 1.010 1.003 - 1.035 EXTERNAL LAB UA pH - External 6.0 EXTERNAL LAB UA Nitrate - External Negative Negative EXTERNAL LAB UA Protein - External Trace(H) Negative EXTERNAL LAB UA Glucose - External Negative Negative EXTERNAL LAB UA Ketones - External Negative Negative EXTERNAL LAB UA Urobilinogen - External 0.2 mg/dL EXTERNAL LAB UA Bilirubin - External Negative Negative EXTERNAL LAB UA Blood - External Negative Negative raul/ul EXTERNAL LAB UA Color - External Yellow Yellow EXTERNAL LAB UA Appearance - External Clear Clear EXTERNAL LAB 05/31/2021 6:41 AM CDT Narrative EXTERNAL LAB - 05/31/2021 1:14 PM CDT Verified by Monie Siddiqui on 05/31/2021. us Cathleen Gallegos MD URINE ORDERABLES Final Result EXTERNAL LAB documented in this encounter Visit Diagnoses Diagnosis 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 ([facility]) Liver replaced by transplant documented in this encounter Care Teams Core Drill Operator Helper Relationship Specialty Start Date End Date Juan Laguerre MD [address] [facility] [address] [place] [address] PCP - General Family Medicine 01/02/18 Aubrey Crabtree III, MD [address] [facility] [address], [place] [address] Hematology and Medical Oncology 10/01/18 Jaki Nieves, PhD [address] [facility] [address] [place] [address] Genetic Counseling 11/27/18 documented as of this encounter
--- OUTSIDE RECORDS SUMMARY | 2025-08-09 09:35 | XMS_ITS | Encounter Summary ---
Author Organization [facility] Address [address] [place] [address] Care Team Providers Care Oil Field Caser Name Role Phone Juan Laguerre MD Primary Care Provider [phone] Bro AWAN MD, Aubrey Lane Unavailable [phone] Jaki Nieves PhD Unavailable [phone] Source Comments In the event that this is information that is protected by federal Confidentiality of Substance User Disorder Patient Records, 42 CFR Part 2 prohibits the unauthorized disclosure of these records.[facility] Reason for Visit * Reason Comments Medications Refill Encounter Details Date Type Department Care Team (Late st Contact Info) Description 04/17/2021 Refill NM Transplant Surgery [address] [facility], 19th Floor [address] [place] [address] Cathleen Gallegos MD [address] [facility] [address], [place] [address] Medications Refill Social History Tobacco Use Types [...] Office Visit NM Transplant Surgery [address] [facility], 19th Floor [address] [place], [place] [id number] Apt confirmed-EH documented as of this encounter Visit Diagnoses Not on filedocumented in this encounter Care Teams Oil Field Caser Relationship Specialty Start Date End Date Juan Laguerre MD [address] [facility] [address] [place] [address] PCP - General Family Medicine 01/02/18 Aubrey Crabtree III, MD [address] [facility] [address] [place] [address] Hematology and Medical Oncology 10/01/18 Jaki Nieves, PhD [address] [facility] [address] [place], [place] [address] Genetic Counseling 11/27/18 documented as of this encounter
--- OUTSIDE RECORDS SUMMARY | 2025-08-09 09:35 | XMS_ITS | Encounter Summary ---
Author Organization [facility] Address [address] [place] [address] Care Team Providers Care Inspector Health Care Facilities Name Role Phone Juan Laguerre MD Primary Care Provider [phone] Bro AWAN MD, Aubrey Lane Unavailable [phone] Jaki Nieves PhD Unavailable [phone] Source Comments In the event that this is information that is protected by federal Confidentiality of Substance User Disorder Patient Records, 42 CFR Part 2 prohibits the unauthorized disclosure of these records.[facility] Encounter Details Date Type Department Care Team (Late st Contact Info) Description 12/18/2021 Orders Only NM Transplant Surgery [address] [facility], 19th Floor [address] [place], [place] [address] Sandra Joiner, CEPHALOMETRIC ANALYST, FITNESS COORDINATOR [address] [facility] [address] [place] [address] Social History Tobacco Use Types Packs/Day Years [...] [address], [address] [place] [address] Apt confirmed-EH documented as of this encounter Procedures Procedure Name Priority Date/Time Associated Diagnosis Comments BK VIRUS QUANT VIRAL LOAD, URINE Routine 12/30/2021 6:25 AM CHERRY CUTTER EVEROLIMUS LEVEL Routine 12/30/2021 6:25 AM CHERRY CUTTER URINALYSIS WITH MICROSCOPIC Routine 12/30/2021 6:25 AM CHERRY CUTTER documented in this encounter Results * BK Virus Quant Viral Load, Urine (12/30/2021 6:25 AM CHERRY CUTTER) BK Quantitation Urine - External 27,500 EXTERNAL LAB 12/30/2021 6:25 AM CHERRY CUTTER Narrative EXTERNAL LAB - 01/07/2022 7:02 PM CHERRY CUTTER Verified by Monie Siddiqui on 01/07/2022. Edwin Del Toro MD URINE ORDERABLES Final Res ult Performing Organization Address City/[facility]/ZIP Co de Phone Number EXTERNAL LAB * Everolimus Level (12/30/2021 6:25 AM CHERRY CUTTER) Pathologist [facility] Everolimus Level - External 4.6 EXTERNAL LAB 12/30/2021 6:25 AM CHERRY CUTTER Narrative EXTERNAL LAB - 01/01/2022 10:33 AM CHERRY CUTTER Verified by Koki Burks on 01/01/2022. Physician Non-Staff CHEMISTRY ORDERABLES Final R esult Performing Organization Address City/[facility]/ZIP Co de Phone Number EXTERNAL LAB * (ABNORMAL) Urinalysis with microscopic (12/30/2021 6:25 AM CHERRY CUTTER) Pathologist [facility] Specific [place], Urine - External 1.018 1.003 - 1.035 EXTERNAL LAB UA pH - External 5.5 0 - 8.0 EXTERNAL LAB UA Leukocyte Esterase - External Negative Negative EXTERNAL LAB UA Nitrate - External Negative Negative EXTERNAL LAB UA Protein - External 1+(A) EXTERNAL LAB UA Glucose - External 4+(A) [...] - External 0-5 0-5, /hpf EXTERNAL LAB 12/30/2021 6:25 AM CHERRY CUTTER Narrative EXTERNAL LAB - 12/30/2021 12:31 PM CHERRY CUTTER Verified by Monie Siddiqui on 12/30/2021. us Edwin Del Toro MD URINE ORDERABLES Final Res ult EXTERNAL LAB documented in this encounter Visit Diagnoses Diagnosis 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) Liver replaced by transplant Kidney replaced by transplant documented in this encounter Care Teams Inspector Health Care Facilities Relationship Specialty Start Date End Date Juan Laguerre MD [address] [place] [address] PCP - General Family Medicine 01/02/18 Aubrey Crabtree III, MD [address] [place] [address] Hematology and Medical Oncology 10/01/18 Jaki Nieves, PhD [address] [facility] [address] [place] [address] Genetic Counseling 11/27/18 documented as of this encounter
--- OUTSIDE RECORDS SUMMARY | 2025-08-09 09:35 | XMS_ITS | Encounter Summary ---
Author Organization [facility] Address [address] [place] [address] Care Team Providers Care Plant Associate Name Role Phone Juan Laguerre MD Primary Care Provider [phone] Bro AWAN MD, Aubrey Lane Unavailable [phone] Jaki Nieves PhD Unavailable [phone] Source Comments In the event that this is information that is protected by federal Confidentiality of Substance User Disorder Patient Records, 42 CFR Part 2 prohibits the unauthorized disclosure of these records.[facility] Encounter Details Date Type Department Care Team (Late Contact Info) Description 05/22/2021 Orders Only NM Transplant Surgery [address] [facility], 19th Floor [address] [place] [address] Linette Almaguer RN Social History Tobacco Use [...] [address], [address] [place] [address] Apt confirmed-EH documented as of this encounter Procedures Procedure Name Priority Date/Time Associated Diagnosis Comments EVEROLIMUS LEVEL Routine 05/31/2021 6:41 AM CDT MYCOPHENOLIC ACID Routine 05/31/2021 6:4 1 AM CDT CBC AND DIFFERENTIAL Routine 05/31/2021 6:41 AM CDT HEPATIC FUNCTION PANEL Routine 05/31/2021 6:41 AM CDT documented in this encounter Results * Everolimus Level (05/31/2021 6:41 AM CDT) Everolimus Level - External 5.3 EXTERNAL LAB 05/31/2021 6:41 AM CDT Narrative EXTERNAL LAB - 06/06/2021 1:52 PM CDT Verified by Monie Siddiqui on 06/06/2021. Cathleen Gallegos MD CHEMISTRY ORDERABLES Final Resul t EXTERNAL LAB * Mycophenolic Acid (05/31/2021 6:41 AM CDT) Mycophenolic Acid - External 1.7 1.0 - 3.5 ug/mL EXTERNAL LAB 05/31/2021 6:41 AM CDT Narrative EXTERNAL LAB - 06/05/2021 8:42 AM CDT Verified by Koki Burks on 06/05/2021. us Physician Non-Staff CHEMISTRY ORDERABLES Final R esult EXTERNAL LAB * (ABNORMAL) Hepatic Function Panel (05/31/2021 6:41 AM CDT) Total Bilirubin - External 0.4 0.0 - 1.0 mg/dL EXTERNAL LAB Direct Bilirubin - External <0.1 0.0 - 0.3 mg/dL EXTERNAL LAB Alkaline Phos - External 109 39 - 117 U/L EXTERNAL LAB AST (SGOT) - External 22 0 - 37 U/L EXTERNAL LAB ALT (SGPT) - External 25 12 - 55 U/L EXTERNAL LAB Total Protein - External 7.0 6.2 - 8.4 g/dL EXTERNAL LAB Albumin - External 3.4(L) 5 - 5.0 g/dL EXTERNAL LAB 05/31/2021 6:41 AM CDT Narrative EXTERNAL LAB - 05/31/2021 1:14 PM CDT Verified by Monie Siddiqui on 05/31/2021. us Cathleen Gallegos MD CHEMISTRY ORDERABLES Final Resul t EXTERNAL LAB * (ABNORMAL) CBC with Differential (05/31/2021 6:41 AM CDT) White Blood Cells - External 10.74 10(3)/mcL EXTERNAL LAB Red Blood Cells - External 6.90(H) 10(6)/mcL EXTERNAL LAB Hemoglobin - External 16.9 6 - 17.4 g/dL EXTERNAL LAB Hematocrit - External 56.0(H) 39.8 - 52.2 % EXTERNAL LAB MCV - External 81.2 fL EXTERNAL LAB MCH - External 24.5(L) pg EXTERNAL LAB MCHC - External 30.2(L) 31.5 - 36.0 g/dL EXTERNAL LAB Platelets - External 169 140 - 445 10(3)/mcL EXTERNAL LAB RDW - External 20(H) 0 - 15.0 % EXTERNAL LAB Neutrophils - External 52.8 % EXTERNAL LAB Lymphocytes - External 31.3 % EXTERNAL LAB Monocytes - External 12.3 % EXTERNAL LAB Eosinophils - External 2.2 % EXTERNAL LAB Neutrophils Abs (cells/uL) - External 5.67 1.40 - 7.30 cells/uL EXTERNAL LAB Lymph Absolute - External 3.36(H) 10(3)/mcL EXTERNAL LAB [place] Absolute - External 1.32(H) 0.10 - 0.80 10(3)/mcL EXTERNAL LAB - External 0.24 0.00 - 0.30 10(3)/mcL EXTERNAL LAB Basophil Absolute - External 0.12(H) 0.00 - 0 10(3)/mcL EXTERNAL LAB Basophils - External 1.1 EXTERNAL LAB 05/31/2021 6:41 AM CDT Narrative EXTERNAL LAB - 05/31/2021 1:14 PM CDT Verified by Monie Siddiqui on 05/31/2021. 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
--- OUTSIDE RECORDS SUMMARY | 2025-08-09 09:35 | XMS_ITS | Encounter Summary ---
Author Organization [facility] Address [address] [place] [address] Phone Care Team Providers Care Independent Crop Consultant Name Role Phone Juan Laguerre MD Primary Care Provider [phone] Rell Painting MD Unavailable [phone] Bro AWAN MD, James L Unavailable [phone] Jez Denson MD Unavailable Cathleen Gallegos MD Unavailable Vikram Garza MD Unavailable [phone] Treva Edwards MD Unavailable [phone] Sanchez Bills DPSanjay Unavailable [phone] Encounter Details Date Type Department Care Team (Latest Contact Info) Description 09/07/2022 Transcribe Orders [facility] Laboratory Services [address] [place] [address] Juan Laguerre MD [address] [place] [address] Encounter for screening for malignant neoplasm of prostate (Primary Dx); Encounter for general adult medical examination without abnormal findings Social History Tobacco Use Types Packs/Day Years [...] Exposure Response Date Recorded In the last 10 days, have yo u been in contact with someone who was confirmed or suspected to have Coronavirus/COVID-19? No / Unsure 08/29/2022 12:02 PM CDT documented as of this encounter Plan of Treatment Upcoming Encounters Date Type Department Care Team (Late st Contact Info) Description 08/10/2025 12:45 PM CDT Lab [facility] [address] [phone] Lab, [facility] 08/10/2025 1:00 PM CDT Ancillary Procedure [facility] [address] [phone] 08/17/2025 9:00 AM CDT Office Visit [facility] [address] [phone] Tyler Haile MD [address] [place] [address] documented as of this encounter Results * (ABNORMAL) HEMOGLOBIN A1C W/ ESTIMATED GLUCOSE (09/11/2022 6:10 AM SOFT WATER MECHANIC) HGB-A1C 10.1(H) 3.8 - 5.6 % 09/11/2022 8:41 AM [facility] Blood Venipuncture / Unknown 09/11/2022 6:10 AM SOFT WATER MECHANIC 09/11/2022 7:14 AM [facility] - 09/11/2022 8:41 AM SOFT WATER MECHANIC Per ADA recommendations, HbA1c <7% is the goal for glycemic control, >8% suggests additional action needed. (Siemens Dimension [place] HbA1c method) This assay measures any hemoglobin [...] program certification. Reference ranges have been updated. Juan Laguerre MD CHEMISTRY ORDERABLES Final Resu lt Performing Organization Address [facility] de Phone Number [address] [address] * PSA SCREEN (09/11/2022 6:10 AM SOFT WATER MECHANIC) PSA SCREEN, TOTAL 0.44 0.00 - 4.00 ng/mL 09/11/2022 9:02 AM SOFT WATER MECHANIC [facility] Comment:Performed by chemilu minometric assay on the Siemens ADVIA [place]. Values obtained with different methods cannot be used interchangeably for patient monitoring. PSA is not a specific test for prostatic carcinoma and can be elevated with benign prostatic disease or following prostatic manipulation. Heterophilic antibodies may interfere with this assay. Blood Venipuncture / Unknown 09/11/2022 6:10 AM SOFT WATER MECHANIC 09/11/2022 7:14 AM SOFT WATER MECHANIC Juan Laguerre MD CHEMISTRY ORDERABLES Final Resu lt Performing Organization Address [facility] Co de Phone Number [address] [address] documented in this encounter Visit Diagnoses Diagnosis Encounter for screening for malignant neoplasm of prostate- Primary Special screening for malignant neoplasm of prostate Encounter for general adult medical examination without abnormal findings Routine general medical examination at a health care facility documented in this encounter Additional Health Concerns Assessment Noted Time PHQ-9 Depression Total Score: 0 08/15/20 21 11:42 AM CDT documented as of this encounter Care Teams Independent Crop Consultant Relationship Specialty Start Date End Date Juan Laguerre MD [address] [place] [address] [place] [address] PCP - General Family Medicine 10/05/16 Rell Painting MD [address] [place] [address] Consulting Physician General Surgery 10/22/18 Aubrey Crabtree III, MD [address] [facility] [address] [place] [address] Medical Oncologist Internal Medicine 11/06/18 Jez Denson MD [facility] [address] [facility] [place] [address] Consulting Physician Cardiovascular Disease - Cardiology 01/19/19 Cathleen Gallegos MD [address] [address] Consulting Physician Nephrology 01/19/19 Vikram Garza MD [address] [address] Consulting Physician Cardiovascular Disease - Cardiology 01/19/19 Treva Edwards MD [address] [place] [address] Consulting Physician Internal Medicine 08/31/20 Sanchez Bills DPM [address] [facility] [address] [place] [address] Consulting Physician Podiatry 08/31/20 documented as of this encounter
--- OUTSIDE RECORDS SUMMARY | 2025-08-09 09:35 | XMS_ITS | Encounter Summary ---
Author Organization [facility] Address [address] [place] [address] Care Team Providers Care Customer Supply Chain Analyst Name Role Phone Juan Laguerre MD Primary Care Provider [phone] Bro AWAN MD, Aubrey Lane Unavailable [phone] Jaki Nieves PhD Unavailable [phone] Source Comments In the event that this is information that is protected by federal Confidentiality of Substance User Disorder Patient Records, 42 CFR Part 2 prohibits the unauthorized disclosure of these records.[facility] Encounter Details Date Type Department Care Team (Late st Contact Info) Description 08/28/2021 Orders Only NM Transplant Surgery [address] [facility], 19th [address] [place], [place] [address] Sandra Jioner, IOS ARCHITECT, KILN MAINTENANCE [address] [facility] 19[address] [place] [address] Social History Tobacco Use Types Packs/Day Years [...] Office Visit NM Transplant Surgery [address] [facility], [address] [place] [address] Apt confirmed-EH documented as of this encounter Visit Diagnoses Diagnosis 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) Liver replaced by transplant Kidney replaced by transplant documented in this encounter Care Teams Customer Supply Chain Analyst Relationship Specialty Start Date End Date Juan Laguerre MD [address] [facility] [address] [place], [place] [phone] PCP - General Family Medicine 01/02/18 Aubrey Crabtree III, MD [address] [facility] [address] [place] [address] Hematology and Medical Oncology 10/01/18 Jaki Nieves, PhD [address] [facility] [address] [place], [place] [address] Genetic Counseling 11/27/18 documented as of this encounter
--- OUTSIDE RECORDS SUMMARY | 2025-08-09 09:35 | XMS_ITS | Encounter Summary ---
Author Organization [facility] Address [address] [place] [address] Care Team Providers Care Board Lining Machine Operator Name Role Phone Juan Laguerre MD Primary Care Provider [phone] Bro AWAN MD, Aubrey Lane Unavailable [phone] Jaki Nieves PhD Unavailable [phone] Source Comments In the event that this is information that is protected by federal Confidentiality of Substance User Disorder Patient Records, 42 CFR Part 2 prohibits the unauthorized disclosure of these records.[facility] Encounter Details Date Type Department Care Team (Late st Contact Info) Description 08/27/2022 Orders Only NM Transplant Surgery [address] [facility], [address]th [address] [place], [place] [address] Sandra Joiner, HOUSE DIRECTOR, CLOTH SHRINKING TESTER [address] [facility] [address] [place] [address] Social History Tobacco Use Types Packs/Day Years [...] [address] [place] [address] Apt confirmed-EH documented as of this encounter Procedures Procedure Name Priority Date/Time Associated Diagnosis Comments PHOSPHORUS LEVEL Routine 11/15/2022 9:54 AM SALES TRAINING MANAGER CBC AND DIFFERENTIAL Routine 09/11/2022 6:10 AM SALES TRAINING MANAGER documented in this encounter Results * Phosphorus Level (11/15/2022 9:54 AM SALES TRAINING MANAGER) Phosphorous - External 2.8 2.6 - 4.5 mg/dL EXTERNAL LAB 11/15/2022 9:54 AM SALES TRAINING MANAGER Narrative EXTERNAL LAB - 11/15/2022 1:02 PM SALES TRAINING MANAGER Verified by Monie Siddiqui on 11/15/2022. us Edwin Del Toro MD CHEMISTRY ORDERABLES Final Result EXTERNAL LAB * (ABNORMAL) CBC with Differential (09/11/2022 6:10 AM SALES TRAINING MANAGER) Neutrophils - External 46.6 % EXTERNAL LAB Lymphocytes - External 38.1 % EXTERNAL LAB Monocytes - External 12.1 % EXTERNAL LAB Eosinophils - External 1.8 % EXTERNAL LAB Basophils - External 1.1 % EXTERNAL LAB Neutrophils Abs (cells/uL) - External 4.05 cells/uL EXTERNAL LAB Lymph Absolute - External 3.32(H) 10(3)/mcL EXTERNAL LAB [place] Absolute - External 1.05(H) 10(3)/mcL EXTERNAL LAB - External 0.16 10(3)/mcL EXTERNAL LAB Basophil Absolute - External 0.10 10(3)/mcL EXTERNAL LAB 09/11/2022 6:10 AM SALES TRAINING MANAGER Narrative EXTERNAL LAB - 09/11/2022 1:27 PM SALES TRAINING MANAGER Verified by Monie Siddiqui on 09/11/2022. us Edwin Del Toro MD HEMATOLOGY ORDERABLES Joana l Result EXTERNAL LAB documented in this encounter Visit Diagnoses Diagnosis 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) Liver replaced by transplant Kidney replaced by transplant documented in this encounter Care Teams Board Lining Machine Operator Relationship Specialty Start Date End Date Juan Laguerre MD [address] [place] [address] PCP - General Family Medicine 01/02/18 Aubrey Crabtree III, MD [address] [place] [address] Hematology and Medical Oncology 10/01/18 Jaki Nieves, PhD [address] [facility] [address] [place] [address] Genetic Counseling 11/27/18 documented as of this encounter
--- OUTSIDE RECORDS SUMMARY | 2025-08-09 09:35 | XMS_ITS | Encounter Summary ---
Author Organization [facility] Address [address] [place] [address] Care Team Providers Care Airframe Design Engineer Name Role Phone Juan Laguerre MD Primary Care Provider [phone] Bro AWAN MD, Aubrey Lane Unavailable [phone] Jaki Nieves PhD Unavailable [phone] Source Comments In the event that this is information that is protected by federal Confidentiality of Substance User Disorder Patient Records, 42 CFR Part 2 prohibits the unauthorized disclosure of these records.[facility] Encounter Details Date Type Department Care Team (Late st Contact Info) Description 10/23/2021 Orders Only NM Transplant Surgery [address] [facility], 19th [address] [place], [place] [address] Sandra Joiner, JIG BORING MACHINE SET UP OPERATOR, WASHROOM ATTENDANT [address] [facility] [address] [place] [address] Social History Tobacco Use Types Packs/Day Years [...] [address] [facility], [address] [place] [address] Apt confirmed-EH documented as of this encounter Visit Diagnoses Diagnosis 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) Liver replaced by transplant Kidney replaced by transplant documented in this encounter Care Teams Airframe Design Engineer Relationship Specialty Start Date End Date Juan Laguerre MD [address] [facility] [address] [place], [place] [id number] PCP - General Family Medicine 01/02/18 Aubrey Crbatree III, MD [address] [facility] [address] [place] [address] Hematology and Medical Oncology 10/01/18 Jaki Nieves, PhD [address] [facility] [address] [place], [place] [address] Genetic Counseling 11/27/18 documented as of this encounter
--- OUTSIDE RECORDS SUMMARY | 2025-08-09 09:35 | XMS_ITS | Encounter Summary ---
Author Organization [facility] Address [address] [place] [address] Care Team Providers Care Vacuum Pan Operator Name Role Phone Juan Laguerre MD Primary Care Provider [phone] Bro AWAN MD, Aubrey Lane Unavailable [phone] Jaki Nieves PhD Unavailable [phone] Source Comments In the event that this is information that is protected by federal Confidentiality of Substance User Disorder Patient Records, 42 CFR Part 2 prohibits the unauthorized disclosure of these records.[facility] Encounter Details Date Type Department Care Team (Late Contact Info) Description 04/24/2021 Orders Only NM Transplant Surgery [address] [facility], [address] [place] [address] Linette Almaguer RN Social History Tobacco Use [...] Visit NM Transplant Surgery [address] [facility], [address] [place] [address] Apt confirmed-EH documented as of this encounter Visit Diagnoses Diagnosis 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 transplant documented in this encounter Care Teams Vacuum Pan Operator Relationship Specialty Start Date End Date Juan Laguerre MD [address] [facility] [address] [place] [address] PCP - General Family Medicine 01/02/18 Aubrey Crabtree III, MD [address] [facility] [address] [place] [address] Hematology and Medical Oncology 10/01/18 Jaki Nieves, PhD [address] [facility] [address] [place] [address] Genetic Counseling 11/27/18 documented as of this encounter
--- OUTSIDE RECORDS SUMMARY | 2025-08-09 09:35 | XMS_ITS | Encounter Summary ---
Author Organization [facility] Address [address] [place] [address] Care Team Providers Care Pipe Line Inspector Name Role Phone Juan Laguerre MD Primary Care Provider [phone] Bro AWAN MD, Aubrey Lane Unavailable [phone] Jaki Nieves PhD Unavailable [phone] Source Comments In the event that this is information that is protected by federal Confidentiality of Substance User Disorder Patient Records, 42 CFR Part 2 prohibits the unauthorized disclosure of these records.[facility] Encounter Details Date Type Department Care Team (Late st Contact Info) Description 07/31/2021 Orders Only NM Transplant Surgery [address] [facility], [address]th [address] [place], [place] [address] Sandra Joiner, DENTURE CONTOUR WIRE SPECIALIST, POLISHER NUMERAL [address] [facility] [address] [place] [address] Social History Tobacco Use Types Packs/Day Years [facility], [facility] [address] [place] [address] Apt confirmed-EH documented as of this encounter Visit Diagnoses Diagnosis 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) Liver replaced by transplant Kidney replaced by transplant documented in this encounter Care Teams Pipe Line Inspector Relationship Specialty Start Date End Date Juan Laguerre MD [address] [facility] [address] [place], [place] [id number] PCP - General Family Medicine 01/02/18 Aubrey Crabtree III, MD [address] [facility] [address] [place] [address] Hematology and Medical Oncology 10/01/18 Jaki Nieves, PhD [address] [facility] [address] [place], [place] [address] Genetic Counseling 11/27/18 documented as of this encounter
--- OUTSIDE RECORDS SUMMARY | 2025-08-09 09:35 | XMS_ITS | Encounter Summary ---
Author Organization [facility] Address [address] [place] [address] Care Team Providers Care Manager Transportation Name Role Phone Juan Laguerre MD Primary Care Provider [phone] Bro AWAN MD, Aubrey Lane Unavailable [phone] Jaki Nieves PhD Unavailable [phone] Source Comments In the event that this is information that is protected by federal Confidentiality of Substance User Disorder Patient Records, 42 CFR Part 2 prohibits the unauthorized disclosure of these records.[facility] Encounter Details Date Type Department Care Team (Late st Contact Info) Description 06/04/2022 Orders Only NM Transplant Surgery [address] [facility], 19th [address] [place], [place] [address] Sandra Joiner, WEBMETHODS CONSULTANT, REINFORCING BAR SETTER [address] [facility] [address] [place] [address] Social History Tobacco Use Types Packs/Day Years [...] [address] , [address] [place] [address] Apt confirmed-EH documented as of this encounter Procedures Procedure Name Priority Date/Time Associated Diagnosis Comments BK VIRUS QUANT VIRAL LOAD, URINE Routine 06/23/2022 6:32 AM CDT EVEROLIMUS LEVEL Routine 06/23/2022 6:32 AM CDT PTH, INTACT Routine 06/23/2022 6:32 AM CDT MYCOPHENOLIC ACID Routine 06/23/2022 6:3 2 AM CDT VITAMIN D 25-HYDROXY Routine 06/23/2022 6:32 AM CDT 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) Kidney replaced by transplant Vitamin D deficiency BK VIRUS DNA QUANT PCR, BLOOD Routine 06/23/2022 6:32 AM CDT URINALYSIS WITH MICROSCOPIC Routine 06/23/2022 6:32 AM CDT CBC AND DIFFERENTIAL Routine 06/23/2022 6:32 AM CDT 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) Kidney replaced by transplant PHOSPHORUS LEVEL Routine 06/23/2022 6:32 AM CDT 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) Kidney replaced by transplant LIPID PANEL (AMA) W/LDL CALC Routine 06/23/2022 6:32 AM CDT 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) Kidney replaced by transplant COMPREHENSIVE METABOLIC PANEL Routine 06/23/2022 6:32 AM CDT 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) Kidney replaced by transplant documented in this encounter Results * BK Virus DNA Quant PCR, Blood (06/23/2022 6:32 AM CDT) Pathologist [facility] BK Virus DNA, Qn PCR - External NOTDET EXTERNAL LAB 06/23/2022 6:32 AM CDT Narrative EXTERNAL LAB - 06/29/2022 2:30 PM CDT Verified by Monie Siddiqui on 06/29/2022. Edwin Del Toro MD IMMUNOLOGY ORDERABLES Joana l Result EXTERNAL LAB * BK Virus Quant Viral Load, Urine (06/23/2022 6:32 AM CDT) Pathologist [facility] BK Quantitation Urine - External 18,900 EXTERNAL LAB 06/23/2022 6:32 AM CDT Narrative EXTERNAL LAB - 06/29/2022 10:58 AM CDT Verified by Monie Siddiqui on 06/29/2022. Edwin Del Toro MD URINE ORDERABLES Final Res ult EXTERNAL LAB * Everolimus Level (06/23/2022 6:32 AM CDT) Pathologist [facility] Everolimus Level - External 7.3 EXTERNAL LAB 06/23/2022 6:32 AM CDT Narrative EXTERNAL LAB - 06/27/2022 3:24 PM CDT Verified by Monie Siddiqui on 06/27/2022. Edwin Del Toro MD CHEMISTRY ORDERABLES Final Result EXTERNAL LAB * (ABNORMAL) Mycophenolic Acid (06/23/2022 6:32 AM CDT) Pathologist [facility] Mycophenolic Acid - External 2.0(L) 10 - 35 ug/mL EXTERNAL LAB 06/23/2022 6:32 AM CDT Narrative EXTERNAL LAB - 06/27/2022 8:22 AM CDT Verified by Monie Siddiqui on 06/27/2022. Edwin Del Toro MD CHEMISTRY ORDERABLES Final Result Performing Organization Address [facility] de Phone Number EXTERNAL LAB * (ABNORMAL) Urinalysis with microscopic (06/23/2022 6:32 AM CDT) Specific [place], Urine - External 1.014 1.003 - 1.035 EXTERNAL LAB UA pH - External 6.0 5.0 - 8.0 EXTERNAL LAB UA Leukocyte Esterase - External Negative Negative EXTERNAL LAB UA Nitrate - External Negative Negative EXTERNAL LAB UA Protein - External Trace(H) Negative EXTERNAL LAB UA Glucose - External Negative EXTERNAL LAB UA Ketones - External Negative Neg EXTERNAL LAB UA Urobilinogen - External <2.0 <20 mg/dL EXTERNAL LAB UA Bilirubin - External Negative Negative EXTERNAL LAB UA Blood - External Negative Negative raul/ul EXTERNAL LAB UA Color - External Yellow Yellow EXTERNAL LAB UA Appearance - External Clear Clear EXTERNAL LAB UA Squamous Epithelial Cells - External Occasion(A) EXTERNAL LAB UA Hyaline Cast - External Occasional Occasional /LPF EXTERNAL LAB UA WBC - External 0-5 EXTERNAL LAB 06/23/2022 6:32 AM CDT Narrative EXTERNAL LAB - 06/24/2022 7:39 AM CDT Verified by Mnoie Siddiqui on 06/24/2022. Edwin Del Toro MD URINE ORDERABLES Final Res ult Performing Organization Address [facility] de Phone Number EXTERNAL LAB * (ABNORMAL) PTH, Intact (06/23/2022 6:32 AM CDT) PTH, Intact - External 118(H) 14 - 72 pg/mL EXTERNAL LAB 06/23/2022 6:32 AM CDT Narrative EXTERNAL LAB - 06/24/2022 7:39 AM CDT Verified by Monie Siddiqui on 06/24/2022. Edwin Del Toro MD CHEMISTRY ORDERABLES Final Result Performing Organization Address [facility] de Phone Number EXTERNAL LAB * Vitamin D 25-Hydroxy (06/23/2022 6:32 AM CDT) Pathologist [facility] Vitamin D, 25-Hydroxy, Total - External 56 ng/mL EXTERNAL LAB Blood VEIN SPECIMEN / Unknown 06/23/2022 6:32 AM CDT Narrative EXTERNAL LAB - 06/24/2022 7:39 AM CDT Verified by Monie Siddiqui on 06/24/2022. Edwin Del Toro MD CHEMISTRY ORDERABLES Final Result Performing Organization Address [facility] de Phone Number EXTERNAL LAB * (ABNORMAL) Lipid Panel(AMA) w/LDL Calculated (06/23/2022 6:32 AM CDT) Pathologist [facility] Total Cholesterol - External 233(H) 0 - 199 mg/dL EXTERNAL LAB Triglycerides - External 485(H) mg/dL EXTERNAL LAB HDL Cholesterol - External 38(L) 40 - 100 mg/dL EXTERNAL LAB Cholesterol LDL Direct - External 114 <130 mg/dL EXTERNAL LAB Blood VEIN SPECIMEN / Unknown 06/23/2022 6:32 AM CDT Narrative EXTERNAL LAB - 06/24/2022 7:39 AM CDT Verified by Monie Siddiqui on 06/24/2022. Edwin Del Toro MD CHEMISTRY ORDERABLES Final Result Performing Organization Address [facility] de Phone Number EXTERNAL LAB * (ABNORMAL) CBC with Differential (06/23/2022 6:32 AM CDT) White Blood Cells - External 10.37 10(3)/mcL EXTERNAL LAB Red Blood Cells - External 6.77(H) 10(6)/mcL EXTERNAL LAB Hemoglobin - External 15.9 6 - 17.4 g/dL EXTERNAL LAB Hematocrit - External 53.5(H) % EXTERNAL LAB MCV - External 79(L) fL EXTERNAL LAB MCH - External 23.5(L) pg EXTERNAL LAB MCHC - External 29.7(L) g/dL EXTERNAL LAB Platelets - External 154 EXTERNAL LAB RDW - External 21.1(H) 0 - 15.0 % EXTERNAL LAB Lymphocytes - External 36.7 % EXTERNAL LAB Basophils - External 1.3 % EXTERNAL LAB Neutrophils Abs (cells/uL) - External 5.08 cells/uL EXTERNAL LAB Lymph Absolute - External 3.81(H) 10(3)/mcL EXTERNAL LAB [place] Absolute - External 1.18(H) 10(3)/mcL EXTERNAL LAB - External 0.15 0.00 - 0.30 10(3)/mcL EXTERNAL LAB Basophil Absolute - External 0.13(H) 0.00 - 0.10 10(3)/mcL EXTERNAL LAB Neutrophils - External 49 % EXTERNAL LAB Eosinophils - External 1.4 EXTERNAL LAB Monocytes - External 11.4 EXTERNAL LAB Blood VEIN SPECIMEN / Unknown 06/23/2022 6:32 AM CDT Narrative EXTERNAL LAB - 06/24/2022 7:39 AM CDT Verified by Monie Siddiqui on 06/24/2022. Edwin Del Toro MD HEMATOLOGY ORDERABLES Joana l Result EXTERNAL LAB * Phosphorus Level (06/23/2022 6:32 AM CDT) Pathologist [facility] Phosphorous - External 3.3 2.6 - 4.5 mg/dL EXTERNAL LAB Blood VEIN SPECIMEN / Unknown 06/23/2022 6:32 AM CDT Narrative EXTERNAL LAB - 06/24/2022 7:39 AM CDT Verified by Monie Siddiqui on 06/24/2022. Edwin Del Toro MD CHEMISTRY ORDERABLES Final Result EXTERNAL LAB * (ABNORMAL) Comprehensive Metabolic Panel (06/23/2022 6:32 AM CDT) Chloride - External 104 96 - 108 mmol/L EXTERNAL LAB CO2 - External 26 21 - 32 mmol/L EXTERNAL LAB Anion Gap - External 11.2 0 - 20.0 mmol/L EXTERNAL LAB Glucose - External 225(H) 80 - 115 mg/dL EXTERNAL LAB Urea Nitrogen - External 31(H) 6 - 19 mg/dL EXTERNAL LAB Creatinine - External 1.80(H) 0.50 - 1.30 mg/dL EXTERNAL LAB Total Protein - External 6.6 6.0 - 8.2 g/dL EXTERNAL LAB Albumin - External 3.2(L) g/dL EXTERNAL LAB Calcium - External 8.6(L) 8.8 - 10.0 mg/dL EXTERNAL LAB Total Bilirubin - External 0.4 0.0 - 1.0 mg/dL EXTERNAL LAB AST (SGOT) - External 20 0 - 37 U/L EXTERNAL LAB ALT (SGPT) - External 25 12 - 55 U/L EXTERNAL LAB Alkaline Phos - External 88 39 - 117 U/L EXTERNAL LAB Sodium - External 136 EXTERNAL LAB Potassium - External 5.2 EXTERNAL LAB GFR(Others) - External 42 EXTERNAL LAB Blood VEIN SPECIMEN / Unknown 06/23/2022 6:32 AM CDT Narrative EXTERNAL LAB - 06/24/2022 7:39 AM CDT Verified by Monie Siddiqui on 06/24/2022. us 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) Liver replaced by transplant Kidney replaced by transplant Vitamin D deficiency documented in this encounter Care Teams Manager Transportation Relationship Specialty Start Date End Date Juan Laguerre MD [address] [facility] [address] [place] [address] PCP - General Family Medicine 01/02/18 Aubrey Crabtree III, MD [address] [facility] [address] [place] [address] Hematology and Medical Oncology 10/01/18 Jaki Nieves, PhD [address] [facility] [address] [place] [address] Genetic Counseling 11/27/18 documented as of this encounter
--- OUTSIDE RECORDS SUMMARY | 2025-08-09 09:35 | XMS_ITS | Encounter Summary ---
Author Organization [facility] Address [address] [place] [address] Care Team Providers Care Client Service Coordinator Name Role Phone Juan Laguerre MD Primary Care Provider [phone] Bro AWAN MD, Aubrey Lane Unavailable [phone] Jaki Nieves PhD Unavailable [phone] Source Comments In the event that this is information that is protected by federal Confidentiality of Substance User Disorder Patient Records, 42 CFR Part 2 prohibits the unauthorized disclosure of these records.[facility] Encounter Details Date Type Department Care Team (Late st Contact Info) Description 10/29/2022 Orders Only NM Transplant Surgery [address] [facility], 19th [address] [place], [place] [address] Cathleen Gallegos MD [address] [facility] [address], [place] [address] Social History Tobacco Use Types Packs/Day Years [...] [facility], [facility] [address] [place] [address] Apt confirmed-EH documented as of this encounter Procedures Procedure Name Priority Date/Time Associated Diagnosis Comments CBC AND DIFFERENTIAL Routine 11/15/2022 10:05 AM PRINTING MECHANIST BK VIRUS QUANT VIRAL LOAD, URINE Routine 11/15/2022 9:54 AM PRINTING MECHANIST EVEROLIMUS LEVEL Routine 11/15/2022 9:54 AM PRINTING MECHANIST PTH, INTACT Routine 11/15/2022 9:54 AM PRINTING MECHANIST MYCOPHENOLIC ACID Routine 11/15/2022 9:5 4 AM PRINTING MECHANIST VITAMIN D 25-HYDROXY Routine 11/15/2022 9:54 AM PRINTING MECHANIST BK VIRUS DNA QUANT PCR, BLOOD Routine 11/15/2022 9:54 AM PRINTING MECHANIST URINALYSIS WITH MICROSCOPIC Routine 11/15/2022 9:54 AM PRINTING MECHANIST LIPID PANEL (AMA) W/LDL CALC Routine 11/15/2022 9:54 AM PRINTING MECHANIST COMPREHENSIVE METABOLIC PANEL Routine 11/15/2022 9:54 AM PRINTING MECHANIST documented in this encounter Results * (ABNORMAL) CBC with Differential (11/15/2022 10:05 AM PRINTING MECHANIST) White Blood Cells - External 10.62 10(3)/mcL EXTERNAL LAB Red Blood Cells - External 7.33(H) 10(6)/mcL EXTERNAL LAB Hemoglobin - External 16.7 12.6 - 17.4 g/dL EXTERNAL LAB Hematocrit - External 57.1(H) % EXTERNAL LAB MCV - External 77.9(L) fL EXTERNAL LAB MCH - External 22.8(L) 26.5 - 33.9 pg EXTERNAL LAB MCHC - External 29.2(L) g/dL EXTERNAL LAB Platelets - External 128(L) 10(3)/mcL EXTERNAL LAB RDW - External 20.9(H) % EXTERNAL LAB Lymphocytes - External 29.8 % EXTERNAL LAB Basophils - External 1.3 % EXTERNAL LAB Neutrophils Abs (cells/uL) - External 6.11 1.40 - 7.30 cells/uL EXTERNAL LAB Lymph Absolute - External 3.16 10(3)/mcL EXTERNAL LAB [place] Absolute - External 1.05(H) 10(3)/mcL EXTERNAL LAB - External 0.12 0.00 - 0.30 10(3)/mcL EXTERNAL LAB Basophil Absolute - External 0.14(H) 0.00 - 0.10 10(3)/mcL EXTERNAL LAB Neutrophils - External 57.5 % EXTERNAL LAB Eosinophils - External 1.1 % EXTERNAL LAB Monocytes - External 9.9 % EXTERNAL LAB 11/15/2022 10:0 5 AM PRINTING MECHANIST Narrative EXTERNAL LAB - 11/15/2022 1:02 PM PRINTING MECHANIST Verified by Monie Siddiqui on 11/15/2022. Edwin Del Toro MD HEMATOLOGY ORDERABLES Joana l Result EXTERNAL LAB * BK Virus Quant Viral Load, Urine (11/15/2022 9:54 AM PRINTING MECHANIST) BK Quantitation Urine - External 12,500 EXTERNAL LAB 11/15/2022 9:54 AM PRINTING MECHANIST Narrative EXTERNAL LAB - 11/19/2022 3:55 PM PRINTING MECHANIST Verified by Koki Burks on 11/19/2022. Physician Non-Staff URINE ORDERABLES Final Resul t EXTERNAL LAB * BK Virus DNA Quant PCR, Blood (11/15/2022 9:54 AM PRINTING MECHANIST) BK Virus DNA, Qn PCR - External NOT DETECTED EXTERNAL LAB 11/15/2022 9:54 AM PRINTING MECHANIST Narrative EXTERNAL LAB - 11/19/2022 3:55 PM PRINTING MECHANIST Verified by Koki Burks on 11/19/2022. us Physician Non-Staff IMMUNOLOGY ORDERABLES Final Result EXTERNAL LAB * Everolimus Level (11/15/2022 9:54 AM PRINTING MECHANIST) Everolimus Level - External 5.3 EXTERNAL LAB 11/15/2022 9:54 AM PRINTING MECHANIST Narrative EXTERNAL LAB - 11/19/2022 10:26 AM PRINTING MECHANIST Verified by Koki Burks on 11/19/2022. Edwin Del Toro MD CHEMISTRY ORDERABLES Final Result Performing Organization Address [facility] de Phone Number EXTERNAL LAB * (ABNORMAL) Mycophenolic Acid (11/15/2022 9:54 AM PRINTING MECHANIST) Mycophenolic Acid - External 1.6(L) 10 - 35 ug/mL EXTERNAL LAB 11/15/2022 9:54 AM PRINTING MECHANIST Narrative EXTERNAL LAB - 11/18/2022 6:41 PM PRINTING MECHANIST Verified by Monie Siddiqui on 11/18/2022. Edwin Del Toro MD CHEMISTRY ORDERABLES Final Result Performing Organization Address [facility] Co de Phone Number EXTERNAL LAB * Vitamin D 25-Hydroxy (11/15/2022 9:54 AM PRINTING MECHANIST) Vitamin D, 25-Hydroxy, Total - External 36 ng/mL EXTERNAL LAB 11/15/2022 9:54 AM PRINTING MECHANIST Narrative EXTERNAL LAB - 11/15/2022 1:02 PM PRINTING MECHANIST Verified by Monie Siddiqui on 11/15/2022. Edwin Del Toro MD CHEMISTRY ORDERABLES Final Result Performing Organization Address City/[facility]/ZIP Co de Phone Number EXTERNAL LAB * (ABNORMAL) Urinalysis with microscopic (11/15/2022 9:54 AM PRINTING MECHANIST) Pathologist [facility] Specific [place], Urine - External 1.021 1.003 - 1.035 EXTERNAL LAB UA pH - External 6.0 EXTERNAL LAB UA Leukocyte Esterase - External [...] - External 0-5 0-5, /hpf EXTERNAL LAB 11/15/2022 9:54 AM PRINTING MECHANIST Narrative EXTERNAL LAB - 11/15/2022 1:02 PM PRINTING MECHANIST Verified by Monie Siddiqui on 11/15/2022. Edwin Del Toro MD URINE ORDERABLES Final Res ult EXTERNAL LAB * (ABNORMAL) PTH, Intact (11/15/2022 9:54 AM PRINTING MECHANIST) Pathologist [facility] PTH, Intact - External 119(H) 14 - 72 pg/mL EXTERNAL LAB 11/15/2022 9:54 AM PRINTING MECHANIST Narrative EXTERNAL LAB - 11/15/2022 1:02 PM PRINTING MECHANIST Verified by Monie Siddiqui on 11/15/2022. Edwin Del Toro MD CHEMISTRY ORDERABLES Final Result EXTERNAL LAB * (ABNORMAL) Lipid Panel(AMA) w/LDL Calculated (11/15/2022 9:54 AM PRINTING MECHANIST) Pathologist [facility] Total Cholesterol - External 286(H) 0 - 199 mg/dL EXTERNAL LAB Triglycerides - External 508(H) 0 - 149 mg/dL EXTERNAL LAB HDL Cholesterol - External 40 40 - 100 mg/dL EXTERNAL LAB Cholesterol LDL Direct - External 161(H) <130 mg/dL EXTERNAL LAB 11/15/2022 9:54 AM PRINTING MECHANIST Narrative EXTERNAL LAB - 11/15/2022 1:02 PM PRINTING MECHANIST Verified by Monie Siddiqui on 11/15/2022. us Edwin Del Toro MD CHEMISTRY ORDERABLES Final Result EXTERNAL LAB * (ABNORMAL) Comprehensive Metabolic Panel (11/15/2022 9:54 AM PRINTING MECHANIST) Chloride - External 103 96 - 108 mmol/L EXTERNAL LAB CO2 - External 28 21 - 32 mmol/L EXTERNAL LAB Anion Gap - External 10.8 0 - 20.0 mmol/L EXTERNAL LAB Glucose - External 182(H) 80 - 115 mg/dL EXTERNAL LAB Urea Nitrogen - External 33(H) 6 - 19 mg/dL EXTERNAL LAB Creatinine - External 1.60(H) 0.50 - 1.30 mg/dL EXTERNAL LAB Total Protein - External 6.9 6.0 - 8.2 g/dL EXTERNAL LAB Albumin - External 3.2(L) 3.4 - 48 g/dL EXTERNAL LAB Calcium - External 8.5(L) 8.8 - 10.0 mg/dL EXTERNAL LAB Total Bilirubin - External 0.4 0.0 - 1.0 mg/dL EXTERNAL LAB AST (SGOT) - External 19 0 - 37 U/L EXTERNAL LAB ALT (SGPT) - External 22 12 - 55 U/L EXTERNAL LAB Alkaline Phos - External 81 39 - 117 U/L EXTERNAL LAB Sodium - External 137 EXTERNAL LAB GFR(Others) - External 49 EXTERNAL LAB 11/15/2022 9:54 AM PRINTING MECHANIST Narrative EXTERNAL LAB - 11/15/2022 1:02 PM PRINTING MECHANIST Verified by Monie Siddiqui on 11/15/2022. us Edwin Del Toro MD CHEMISTRY ORDERABLES Final Result EXTERNAL LAB documented in this encounter Visit Diagnoses Diagnosis Kidney transplant 01/02/2008 documented in this encounter Care Teams Client Service Coordinator Relationship Specialty Start Date End Date Juan Laguerre MD [address] [facility] [address], [place] [address] PCP - General Family Medicine 01/02/18 Aubrey Crabtree III, MD [address] [facility] [address], [place] [address] Hematology and Medical Oncology 10/01/18 Jaki Nieves, PhD [address] [facility] [address] [place] [address] Genetic Counseling 11/27/18 documented as of this encounter
--- OUTSIDE RECORDS SUMMARY | 2025-08-09 09:35 | XMS_ITS | Encounter Summary ---
Author Organization [facility] Address [address] [place] [address] Care Team Providers Care Bobbin Stripper Name Role Phone Juan Laguerre MD Primary Care Provider [phone] Bro AWAN MD, Aubrey Lane Unavailable [phone] Jaki Nieves PhD Unavailable [phone] Source Comments In the event that this is information that is protected by federal Confidentiality of Substance User Disorder Patient Records, 42 CFR Part 2 prohibits the unauthorized disclosure of these records.[facility] Encounter Details Date Type Department Care Team (Late st Contact Info) Description 11/20/2021 Orders Only [place] Transplant Surgery [address] [facility], 19th [address] [place], [place] [address] Sandra Joiner, NURSE MIDWIFE/CLINICAL INSTRUCTOR, SOAP DRIER OPERATOR [address] [facility] [address] [place] [address] Social History Tobacco Use Types Packs/Day Years [...] [address], [address] Floor [address] [place] [address] Apt confirmed-EH documented as of this encounter Procedures Procedure Name Priority Date/Time Associated Diagnosis Comments BK VIRUS QUANT VIRAL LOAD, URINE Routine 11/25/2021 6:38 AM LEGAL ASSOCIATE EVEROLIMUS LEVEL Routine 11/25/2021 6:38 AM LEGAL ASSOCIATE EVEROLIMUS LEVEL Routine 11/25/2021 6:38 AM LEGAL ASSOCIATE URINALYSIS WITH MICROSCOPIC Routine 11/25/2021 6:38 AM LEGAL ASSOCIATE documented in this encounter Results * BK Virus Quant Viral Load, Urine (11/25/2021 6:38 AM LEGAL ASSOCIATE) BK Quantitation Urine - External 4,510 EXTERNAL LAB 11/25/2021 6:38 AM LEGAL ASSOCIATE Narrative EXTERNAL LAB - 11/29/2021 11:23 AM LEGAL ASSOCIATE Verified by Monie Siddiqui on 11/29/2021. Edwin Del Toro MD URINE ORDERABLES Final Res ult EXTERNAL LAB * Everolimus Level (11/25/2021 6:38 AM LEGAL ASSOCIATE) Everolimus Level - External 5.6 EXTERNAL LAB 11/25/2021 6:38 AM LEGAL ASSOCIATE Narrative EXTERNAL LAB - 11/28/2021 11:11 AM LEGAL ASSOCIATE Verified by Monie Siddiqui on 11/28/2021. Edwin Del Toro MD CHEMISTRY ORDERABLES Final Result EXTERNAL LAB * Everolimus Level (11/25/2021 6:38 AM LEGAL ASSOCIATE) Blood 11/25/2021 6:38 AM LEGAL ASSOCIATE Narrative EXTERNAL LAB - 11/27/2021 12:12 PM LEGAL ASSOCIATE Verified by Koki Burks on 11/27/2021 Corrected df us Edwin Del Toro MD CHEMISTRY ORDERABLES Edite d Result - Final Performing Organization Address City/[facility]/ZIP Co de Phone Number EXTERNAL LAB * (ABNORMAL) Urinalysis with microscopic (11/25/2021 6:38 AM LEGAL ASSOCIATE) Specific [place], Urine - External 1.010 1.003 - 1.035 EXTERNAL LAB UA pH - External 6.5 0 - 8.0 EXTERNAL LAB UA Leukocyte [...] - External 0-5 0-5, /hpf EXTERNAL LAB 11/25/2021 6:38 AM LEGAL ASSOCIATE Narrative EXTERNAL LAB - 11/26/2021 12:32 PM LEGAL ASSOCIATE Verified by Monie Siddiqui on 11/26/2021. 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
[2025-08-09 09:46] LABS: Hematocrit 53.8 % (42.0-52.0); Hemoglobin 16.3 g/dL (14.0-18.0); Immature Granulocyte Percent A 0.3 % (0-0.5); Lymphocytes Absolute Auto 3.01 K/mm3 (0.9-3.2); Mean Corpuscular HGB Conc 30.3 g/dl (32-36); Mean Corpuscular Hemoglobin 21.9 pg (26-34); Mean Corpuscular Volume 72.4 fl (80-100); Nucleated Red Blood Cells Absolute Auto 0.000 K/mm3 (0.0-0.012); Nucleated Red Blood Cells Perc 0.0 % (0.0-0.2); Platelet Count Result 246 k/mm3 (150-375); Red Blood Count 7.43 M/mm3 (4.6-6.20); White Blood Count 9.3 K/mm3 (4.5-10.0)
[2025-08-09 10:10] LABS: Alanine Aminotransferase 22 U/L (6-50); Albumin Level 3.9 g/dL (3.5-5.1); Alkaline Phosphatase 73 U/L (38-126); Anion Gap 10 mmol/L (4-12); Aspartate Amino Transferase 28 U/L (17-59); Bilirubin,Total 0.8 mg/dL (0.2-1.3); Blood Urea Nitrogen 29 mg/dL (9-20); CRP 7.2 mg/dL (<1.0); Calcium 9.5 mg/dL (8.4-10.2); Carbon Dioxide 21 mmol/L (22-30); Chloride 102 mmol/L (98-107); Estimated CRCL calculation 52 ml/min; Estimated Glomerular Filt Rate 50; Glucose 273 mg/dL (65-110); Potassium 4.5 mmol/L (3.4-5.0); Sodium 133 mmol/L (137-145); Total Protein 7.7 g/dL (6.3-8.2)
--- OUTSIDE RECORDS SUMMARY | 2025-08-09 10:26 | XMS_ITS | Encounter Summary ---
Author Organization [facility] Address [address] [place] [address] Care Team Providers Care Overweaver Name Role Phone Juan Laguerre MD Primary Care Provider [phone] Bro AWAN MD, Aubrey Lane Unavailable [phone] Jaki Nieves PhD Unavailable [phone] Source Comments In the event that this [...] [facility], 19th Floor [address] [place], [place] [address] Cathleen Gallegos MD [address] [facility] [address], [place] [address] Social History Tobacco Use Types Packs/Day Years [...] Office Visit NM Transplant Surgery [address] [facility], 19th Floor [address] [place] [address] Apt confirmed-EH documented as of this encounter [...] on 09/0109/01/2020 09/05/2020 09/25/2020 12: 31 AM HAND SAMPLE MAKER documented as of this encounter Care Teams Overweaver Relationship Specialty Start Date End Date Juan Laguerre MD [address] [facility] [address] [place], [place] [phone] PCP - General Family Medicine 01/02/18 Aubrey Crabtree III, MD [address] [facility] [address] [place] [id number] Hematology and Medical Oncology 10/01/18 Jaki Nieves, PhD [address] [facility] [address] [facility] [place] [address] Genetic Counseling 11/27/18 documented as of this encounter
--- OUTSIDE RECORDS SUMMARY | 2025-08-09 10:26 | XMS_ITS | Encounter Summary ---
Author Organization [facility] Address [address] [place] [address] Care Team Providers Care Venetian Blind Maker Name Role Phone Juan Laguerre MD Primary Care Provider [phone] Bro AWAN MD, Aubrey Lane Unavailable [phone] Jaki Nieves PhD Unavailable [phone] Source Comments In the event that this is information that is protected by federal Confidentiality of Substance User Disorder Patient Records, 42 CFR Part 2 prohibits the unauthorized disclosure of these records.[facility] Encounter Details Date Type Department Care Team (Late st Contact Info) Description 05/04/2019 Orders Only NM Transplant Surgery [address] [facility], 19th [address] [place], [place] [address] Cathleen Gallegos MD [address] [facility] [address] [address] Social History Tobacco Use Types Packs/Day Years [...] [facility], 19th Floor [address] [place] [address] Apt confirmed-EH documented as of this encounter Visit Diagnoses Diagnosis Kidney transplant 01/02/2008 Liver transplant 01/02/2008 Liver replaced by transplant documented in this encounter Additional Health Concerns Infection Onset Date Last Indicated Resolved Time COVID-19 Comment:Tested + on 09/0109/01/2020 09/05/2020 09/25/2020 12: 31 AM BOOKS SALESPERSON documented as of this encounter Care Teams Venetian Blind Maker Relationship Specialty Start Date End Date Juan Laguerre MD [address] [facility] [address] [place] [address] PCP - General Family Medicine 01/02/18 Aubrey Crabtree III, MD [address] [facility] [address] [place] [address] Hematology and Medical Oncology 10/01/18 Jaki Nieves, PhD [address] [facility] [address] [place] [address] Genetic Counseling 11/27/18 documented as of this encounter
--- OUTSIDE RECORDS SUMMARY | 2025-08-09 10:26 | XMS_ITS | Encounter Summary ---
Author Organization [facility] Address [address] [place] [address] Care Team Providers Care Waste Water Plant Operator Name Role Phone Juan Laguerre MD Primary Care Provider [phone] Bro AWAN MD, Aubrey Lane Unavailable [phone] Jaki Nieves PhD Unavailable [phone] Source Comments In the event that this is information that is protected by federal Confidentiality of Substance User Disorder Patient Records, 42 CFR Part 2 prohibits the unauthorized disclosure of these records.[facility] Encounter Details Date Type Department Care Team (Late Contact Info) Description 12/19/2018 Procedure Pass [place] Radiology [address], 4th [place] [address] Social History Tobacco Use Types Packs/Day Years [...] Office Visit NM Transplant Surgery [address] [facility], 19th Floor [address] [place] [address] Apt confirmed-EH documented as of this encounter Visit Diagnoses Not on filedocumented in this encounter Additional Health Concerns Infection Onset Date Last Indicated Resolved Time COVID-19 Comment:Tested + on 09/0109/01/2020 09/05/2020 09/25/2020 12: 31 AM ASSOCIATE EDITOR documented as of this encounter Care Teams Waste Water Plant Operator Relationship Specialty Start Date End Date Juan Laguerre MD [address] [phone] PCP - General Family Medicine 01/02/18 Aubrey Crabtree III, MD [address] [address] Hematology and Medical Oncology 10/01/18 Jaki Nieves, PhD [address] [facility] [address] [place] [address] Genetic Counseling 11/27/18 documented as of this encounter
--- OUTSIDE RECORDS SUMMARY | 2025-08-09 10:26 | XMS_ITS | Encounter Summary ---
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) Liver replaced by transplant Kidney replaced by transplant documented in this encounter Additional Health Concerns Infection Onset Date Last Indicated Resolved Time COVID-19 Comment:Tested + on 09/0109/01/2020 09/05/2020 09/25/2020 12: 31 AM GOAL UMPIRE documented as of this encounter Care Teams Internal Recruiter Relationship Specialty Start Date End Date Juan Laguerre MD [address] [facility] [address] [place], [place] [phone] PCP - General Family Medicine 01/02/18 Aubrey Crabtree III, MD [address] [facility] [address] [place] [address] Hematology and Medical Oncology 10/01/18 Jaki Nieves, PhD [address] [place] [address] Genetic Counseling 11/27/18 documented as of this encounter
--- OUTSIDE RECORDS SUMMARY | 2025-08-09 10:26 | XMS_ITS | Encounter Summary ---
Author Organization [facility] Address [address] [place] [address] Care Team Providers Care Supervisor Roller Shop Name Role Phone Juan Laguerre MD Primary Care Provider [phone] Bro AWAN MD, Aubrey Lane Unavailable [phone] Jaki Nieves PhD Unavailable [phone] Source Comments In the event that this [...] [facility], [address]th [address] [place], [place] [address] Cathleen Gallegos MD [address] [facility] [address] [address] Social History Tobacco Use Types Packs/Day Years [...] [facility], 19th Floor [address] [place] [address] Apt confirmed-EH documented as of this encounter Visit Diagnoses Diagnosis Kidney transplant 01/02/2008 Liver transplant 01/02/2008 Liver replaced by transplant documented in this encounter Additional Health Concerns Infection Onset Date Last Indicated Resolved Time COVID-19 Comment:Tested + on 09/0109/01/2020 09/05/2020 09/25/2020 12: 31 AM MOVIE THEATER MANAGER documented as of this encounter Care Teams Supervisor Roller Shop Relationship Specialty Start Date End Date Juan Laguerre MD [address] [facility] [address] [place] [address] PCP - General Family Medicine 01/02/18 Aubrey Crabtree III, MD [address] [facility] [address] [place] [address] Hematology and Medical Oncology 10/01/18 Jaki Nieves, PhD [address] [facility] [address] [place] [address] Genetic Counseling 11/27/18 documented as of this encounter
--- OUTSIDE RECORDS SUMMARY | 2025-08-09 10:26 | XMS_ITS | Encounter Summary ---
Author Organization [facility] Address [address] [place] [address] Care Team Providers Care Cigarette Seller Name Role Phone Juan Laguerre MD Primary Care Provider [phone] Bro AWAN MD, Aubrey Lane Unavailable [phone] Jaki iNeves PhD Unavailable [phone] Source Comments In the event that this is information that is protected by federal Confidentiality of Substance User Disorder Patient Records, 42 CFR Part 2 prohibits the unauthorized disclosure of these records.[facility] Encounter Details Date Type Department Care Team (Late Contact Info) Description 04/27/2019 Orders Only NM Transplant Surgery [address] [facility], 19th Floor [address] [place] [address] Cara Cook RN Social History Tobacco Use [...] [address], [address] [place] [address] Apt confirmed-EH documented as of this encounter Visit Diagnoses Diagnosis 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) Liver replaced by transplant Kidney replaced by transplant documented in this encounter Additional Health Concerns Infection Onset Date Last Indicated Resolved Time COVID-19 Comment:Tested + on 09/0109/01/2020 09/05/2020 09/25/2020 12: 31 AM POISING INSPECTOR documented as of this encounter Care Teams Cigarette Seller Relationship Specialty Start Date End Date Juan Laguerre MD [address] [facility] [address] [place], [place] [phone] PCP - General Family Medicine 01/02/18 Aubrey Crabtree III, MD [address] [facility] [address] [place] [address] Hematology and Medical Oncology 10/01/18 Jaki Nieves, PhD [address] [place] [address] Genetic Counseling 11/27/18 documented as of this encounter
--- OUTSIDE RECORDS SUMMARY | 2025-08-09 10:26 | XMS_ITS | Encounter Summary ---
Author Organization [facility] Address [address] [place] [address] Care Team Providers Care Pharmacy Resource Tech Name Role Phone Juan Laguerre MD Primary Care Provider [phone] Bro AWAN MD, Aubrey Lane Unavailable [phone] Jaki Nieves PhD Unavailable [phone] Source Comments In the event that this is information that is protected by federal Confidentiality of Substance User Disorder Patient Records, 42 CFR Part 2 prohibits the unauthorized disclosure of these records.[facility] Encounter Details Date Type Department Care Team (Late st Contact Info) Description 11/10/2018 Orders Only NM Transplant Surgery [address] [facility], 19th [address] [place], [place] [address] Noe Keyes MD [address] [facility] [address] [address] Social History Tobacco Use Types Packs/Day Years [...] [facility] 19[facility] Floor [address] [place] [address] Apt confirmed-EH documented as of this encounter Procedures Procedure Name Priority Date/Time Associated Diagnosis Comments BILIRUBIN DIRECT Routine 11/14/2018 11:0 0 AM ELECTRONIC FUNDS TRANSFER COORDINATOR BILIRUBIN TOTAL Routine 11/14/2018 11:00 AM ELECTRONIC FUNDS TRANSFER COORDINATOR EVEROLIMUS LEVEL Routine 11/14/2018 6:15 AM ELECTRONIC FUNDS TRANSFER COORDINATOR BK VIRUS DNA QUANT PCR, BLOOD Routine 11/14/2018 6:15 AM ELECTRONIC FUNDS TRANSFER COORDINATOR CBC AND DIFFERENTIAL Routine 11/14/2018 6:15 AM ELECTRONIC FUNDS TRANSFER COORDINATOR BK VIRUS QUANT VIRAL LOAD, URINE Routine 11/14/2018 6:00 AM ELECTRONIC FUNDS TRANSFER COORDINATOR PROTEIN/CREAT RATIO, RANDOM URINE Routine 11/14/2018 6:00 AM ELECTRONIC FUNDS TRANSFER COORDINATOR URINALYSIS WITH MICROSCOPIC Routine 11/14/2018 6:00 AM ELECTRONIC FUNDS TRANSFER COORDINATOR HEMOGLOBIN A1C Routine 11/14/2018 6:00 AM ELECTRONIC FUNDS TRANSFER COORDINATOR documented in this encounter Results * Bilirubin, Total (11/14/2018 11:00 AM ELECTRONIC FUNDS TRANSFER COORDINATOR) Total Bilirubin - External 0.3 mg/dL EXTERNAL LAB 11/14/2018 11:0 0 AM ELECTRONIC FUNDS TRANSFER COORDINATOR Narrative EXTERNAL LAB - 11/15/2018 10:07 AM ELECTRONIC FUNDS TRANSFER COORDINATOR Verified by Monie Siddiqui on 11/15/2018. us Noe Keyes MD CHEMISTRY ORDERABLES Final R esult EXTERNAL LAB * Bilirubin, Direct (11/14/2018 11:00 AM ELECTRONIC FUNDS TRANSFER COORDINATOR) Pathologist [facility] Direct Bilirubin - External <0.1 0.0 - 0.3 mg/dL EXTERNAL LAB 11/14/2018 11:0 0 AM ELECTRONIC FUNDS TRANSFER COORDINATOR Narrative EXTERNAL LAB - 11/15/2018 10:07 AM ELECTRONIC FUNDS TRANSFER COORDINATOR Verified by Monie Siddiqui on 11/15/2018. Noe Keyes MD CHEMISTRY ORDERABLES Final R esult Performing Organization Address City/[facility] Co de Phone Number EXTERNAL LAB * BK Virus DNA Quant PCR, Blood (11/14/2018 6:15 AM ELECTRONIC FUNDS TRANSFER COORDINATOR) Pathologist [facility] BK Virus DNA, Qn PCR - External 3,570 EXTERNAL LAB 11/14/2018 6:15 AM ELECTRONIC FUNDS TRANSFER COORDINATOR Narrative EXTERNAL LAB - 12/04/2018 1:05 PM ELECTRONIC FUNDS TRANSFER COORDINATOR Verified by Monie Siddiqui on 12/04/2018. Noe Keyes MD IMMUNOLOGY ORDERABLES Final Result Performing Organization Address [facility]/[place] de Phone Number EXTERNAL LAB * Everolimus Level (11/14/2018 6:15 AM ELECTRONIC FUNDS TRANSFER COORDINATOR) Pathologist [facility] Everolimus Level - External <1.0 EXTERNAL LAB 11/14/2018 6:15 AM ELECTRONIC FUNDS TRANSFER COORDINATOR Narrative EXTERNAL LAB - 11/17/2018 1:40 PM ELECTRONIC FUNDS TRANSFER COORDINATOR Verified by Galina Raza on 11/17/2018. Edwin Del Toro MD CHEMISTRY ORDERABLES Final Result Performing Organization Address [facility]/[place] de Phone Number EXTERNAL LAB * (ABNORMAL) CBC with Differential (11/14/2018 6:15 AM ELECTRONIC FUNDS TRANSFER COORDINATOR) Pathologist [facility] Lymph Absolute - External 7.22 EXTERNAL LAB [place] Absolute - External 2.48(H) EXTERNAL LAB Basophil [...] External 4.56 EXTERNAL LAB 11/14/2018 6:15 AM ELECTRONIC FUNDS TRANSFER COORDINATOR Narrative EXTERNAL LAB - 11/15/2018 8:09 AM ELECTRONIC FUNDS TRANSFER COORDINATOR Verified by Monie Siddiqui on 11/15/2018. Noe Keyes MD HEMATOLOGY ORDERABLES Final Result EXTERNAL LAB * BK Virus Quant Viral Load, Urine (11/14/2018 6:00 AM ELECTRONIC FUNDS TRANSFER COORDINATOR) BK Quantitation Urine - External 638,000 EXTERNAL LAB 11/14/2018 6:00 AM ELECTRONIC FUNDS TRANSFER COORDINATOR Narrative EXTERNAL LAB - 12/02/2018 11:48 AM ELECTRONIC FUNDS TRANSFER COORDINATOR Verified by Monie Siddiqui on 12/02/2018. Noe Keyes MD URINE ORDERABLES Final Resul t EXTERNAL LAB * Hemoglobin A1c (11/14/2018 6:00 AM ELECTRONIC FUNDS TRANSFER COORDINATOR) Hemoglobin A1C - External 10.2 EXTERNAL LAB 11/14/2018 6:00 AM ELECTRONIC FUNDS TRANSFER COORDINATOR Narrative EXTERNAL LAB - 11/15/2018 8:09 AM ELECTRONIC FUNDS TRANSFER COORDINATOR Verified by oMnie Siddiqui on 11/15/2018. Noe Keyes MD CHEMISTRY ORDERABLES Final R esult EXTERNAL LAB * Protein /Creatinine Ratio, Urine (11/14/2018 6:00 AM ELECTRONIC FUNDS TRANSFER COORDINATOR) Urine Creatinine, Random - External 114 EXTERNAL LAB Protein, Urine - External 42.7 EXTERNAL LAB Prot/Creat Ratio - External 0.37 EXTERNAL LAB 11/14/2018 6:00 AM ELECTRONIC FUNDS TRANSFER COORDINATOR Narrative EXTERNAL LAB - 11/15/2018 8:09 AM ELECTRONIC FUNDS TRANSFER COORDINATOR Verified by Monie Siddiqui on 11/15/2018. Noe Keyes MD URINE ORDERABLES Final Resul t Performing Organization Address [facility]/[place] de Phone Number EXTERNAL LAB * Urinalysis with Microscopic (11/14/2018 6:00 AM ELECTRONIC FUNDS TRANSFER COORDINATOR) Specific [place], Urine - External 1.012 EXTERNAL LAB UA [...] External TRACE EXTERNAL LAB 11/14/2018 6:00 AM ELECTRONIC FUNDS TRANSFER COORDINATOR Narrative EXTERNAL LAB - 11/15/2018 8:09 AM ELECTRONIC FUNDS TRANSFER COORDINATOR Verified by Monie Siddiqui on 11/15/2018. Noe Keyes MD URINE ORDERABLES Final Resul t Performing Organization Address [facility]/[place] de Phone Number EXTERNAL LAB documented in this encounter Visit Diagnoses Diagnosis Kidney transplanted Kidney replaced by transplant documented in this encounter Additional Health Concerns Infection Onset Date Last Indicated Resolved Time COVID-19 Comment:Tested + on 09/0109/01/2020 09/05/2020 09/25/2020 12: 31 AM ELECTRONIC FUNDS TRANSFER COORDINATOR documented as of this encounter Care Teams Pharmacy Resource Tech Relationship Specialty Start Date End Date Juan Laguerre MD [address] [facility] [address] [place] [address] PCP - General Family Medicine 01/02/18 Aubrey Crabtree III, MD [address] [facility] [address] [place] [address] Hematology and Medical Oncology 10/01/18 Jaki Nieves, PhD [address] [facility] [address] [place] [address] Genetic Counseling 11/27/18 documented as of this encounter
--- OUTSIDE RECORDS SUMMARY | 2025-08-09 10:26 | XMS_ITS | Encounter Summary ---
Author Organization [facility] Address [address] [place] [address] Care Team Providers Care Chain Mender Name Role Phone Juan Laguerre MD Primary Care Provider [phone] Bro AWAN MD, Aubrey Lane Unavailable [phone] Jaki Nieves PhD Unavailable [phone] Source Comments In the event that this is information that is protected by federal Confidentiality of Substance User Disorder Patient Records, 42 CFR Part 2 prohibits the unauthorized disclosure of these records.[facility] Reason for Referral * Test (Routine) - Closed Specialty Diagnoses / Procedures Referred By Contac t Referred To Contact Cardiology Diagnoses S/P TAVR (transcatheter aortic valve replacement) Procedures Echo 2D Doppler Adult Roxann Mercado APRN, HAND FORMER [address] [facility] [address] [place] [address] Phone: tel: fax: Referral ID Status Reason Start Date Expiration Date Visits Re quested Visits Authorized [id number] Closed 12/21/2019 01/19/2020 1 1 Encounter Details Date Type Department Care Team (Late st Contact Info) Description 01/27/2019 Ancillary Orders [place] Cardiology [address] [facility] [address] [place] [address] Roxann Mercado, SERVICE PROMOTER SALESPERSON, HAND FORMER [address] [facility] [address] [place] [phone] S/P TAVR (transcatheter aortic valve replacement) Social [...] Upcoming Encounters Date Type Department Care Team ([facility] st Contact Info) Description 07/15/2026 1:00 PM CDT Office Visit [place] Transplant Surgery [address] [facility], 19th Floor [address] [place] [address] Apt confirmed-EH documented as of this encounter Results * ECHO 2D DOPPLER (12/25/2019 12:09 PM RADIOLOGIC TECHNICIAN) Reported EF 61 % NM CV C SYNGO Anatomical Region Laterality Modality Ultrasound 12/25/2019 11:3 6 AM RADIOLOGIC TECHNICIAN Narrative 12/25/2019 1:39 PM RADIOLOGIC TECHNICIAN [facility] [place] [address] [place] [address] Echocardiography Report: ECHO 2D DOPPLER ADULT Date of service: 12/25/2019 11:36:14 AM Ordering physician: [id number] ROXANN ROY Reason for Study: Presence of prosthetic heart valve Director Financial Services: Spencer Zacarias Interpreting Physician: [id number] Phillip Ch Referring Physician: PATIENT: Name: BIBIANA [...] the right atrial pressure. -There is a Ploy 3 prosthetic valve present in the aortic [...] Procedure Note Phillip Ch MD - 12/25/2019 [facility] [place] [address] [place] [address] Echocardiography Report: ECHO 2D DOPPLER ADULT Date of service: 12/25/2019 11:36:14 AM Ordering physician: [id number] ROXANN ROY Reason for Study: Presence of prosthetic heart valve Director Financial Services: Spencer Zacarias Interpreting Physician: [id number] Phillip Ch Referring Physician: PATIENT: Name: BIBIANA [...] is no significantchange. . Final Roxann Mercado SERVICE PROMOTER SALESPERSON, HAND FORMER ECHO ORDERABLES Fin al Result documented in this encounter Visit Diagnoses Diagnosis S/P TAVR (transcatheter aortic valve replacement) S/P TAVR (transcatheter aortic valve replacement) documented in this encounter Additional Health Concerns Infection Onset Date Last Indicated Resolved Time COVID-19 Comment:Tested + on 09/0109/01/2020 09/05/2020 09/25/2020 12: 31 AM RADIOLOGIC TECHNICIAN documented as of this encounter Care Teams Chain Mender Relationship Specialty Start Date End Date Juan Laguerre MD [address] [facility] [address] [place] [address] [id number] PCP - General Family Medicine 01/02/18 Aubrey Crabtree III, MD [address] [facility] [address] [place] [address] Hematology and Medical Oncology 10/01/18 Jaki Nieves, PhD [address] [facility] [address] [place] [address] Genetic Counseling 11/27/18 documented as of this encounter
--- OUTSIDE RECORDS SUMMARY | 2025-08-09 10:26 | XMS_ITS | Encounter Summary ---
Author Organization [facility] Address [address] [place] [address] Care Team Providers Care Ballroom Dance Instructor Name Role Phone Juan Laguerre MD Primary Care Provider [phone] Bro AWAN MD, Aubrey Lane Unavailable [phone] Jaki Nieves PhD Unavailable [phone] Source Comments In the event that this is information that is protected by federal Confidentiality of Substance User Disorder Patient Records, 42 CFR Part 2 prohibits the unauthorized disclosure of these records.[facility] Reason for Referral * Test (Routine) - Closed Specialty Diagnoses / Procedures Referred By Contac t Referred To Contact Cardiology Diagnoses S/P TAVR (transcatheter aortic valve replacement) Procedures Echo 2D Doppler Adult Roxann Mercado APRN, WIRE STOCKKEEPER [address] [facility] [address] [place] [address] Phone: tel: fax: Referral ID Status Reason Start Date Expiration Date Visits Re quested Visits Authorized [id number] Closed 01/27/2019 04/27/2020 1 1 Encounter Details Date Type Department Care Team (Late st Contact Info) Description 01/27/2019 Ancillary Orders [place] Cardiology [address] [place] [address] [place] [address] Roxann Mercado, OUTSOLE FLEXER, WIRE STOCKKEEPER [address] [facility] [address] [place] [address] S/P TAVR (transcatheter aortic valve replacement) Social [...] Description 07/15/2026 1:00 PM CDT Office Visit [place] Transplant Surgery [address] [facility], 19th Floor [address] [place] [address] Apt confirmed-EH documented as of this encounter Results * ECHO 2D DOPPLER (01/27/2019 12:05 PM CDT) Reported EF 53 % NM CV C SYNGO Anatomical Region Laterality Modality Ultrasound 01/27/2019 11:3 3 AM CDT Narrative 01/27/2019 12:40 PM CDT [facility] [place] [address] [place] [address] Echocardiography Report: ECHO 2D DOPPLER ADULT Date of service: 01/27/2019 11:33:39 AM Ordering physician: [id number] ROXANN ROY Time Study Clerk: Arthur Molina Interpreting Physician: [id number] Garcia Neves Referring Physician: PATIENT: Name: Margo [...] Procedure Note Garcia Neves MD - 01/27/2019 [facility] [place] [address] [place] [address] Echocardiography Report: ECHO 2D DOPPLER ADULT Date of service: 01/27/2019 11:33:39 AM Ordering physician: [id number] ROXANN ROY Time Study Clerk: Arthur Molina Interpreting Physician: [id number] Garcia Neves Referring Physician: PATIENT: Name: Margo [...] study of 12/27/18. . Final Roxann Mercado OUTSOLE FLEXER, WIRE STOCKKEEPER ECHO ORDERABLES Fin al Result documented in this encounter Visit Diagnoses Diagnosis S/P TAVR (transcatheter aortic valve replacement) S/P TAVR (transcatheter aortic valve replacement) documented in this encounter Additional Health Concerns Infection Onset Date Last Indicated Resolved Time COVID-19 Comment:Tested + on 09/0109/01/2020 09/05/2020 09/25/2020 12: 31 AM TELESCOPE OPERATOR documented as of this encounter Care Teams Ballroom Dance Instructor Relationship Specialty Start Date End Date Juan Laguerre MD [address] [address] PCP - General Family Medicine 01/02/18 Aubrey Crabtree III, MD [address] [address] Hematology and Medical Oncology 10/01/18 Jaki Nieves, PhD [address] [facility] [address] [place] [address] Genetic Counseling 11/27/18 documented as of this encounter
--- OUTSIDE RECORDS SUMMARY | 2025-08-09 10:26 | XMS_ITS | Encounter Summary ---
Author Organization [facility] Address [address] [place] [address] Care Team Providers Care Livestock Farm Workers Name Role Phone Juan Laguerre MD Primary Care Provider [phone] Bro AWAN MD, Aubrey Lane Unavailable [phone] Jaki Nieves PhD Unavailable [phone] Source Comments In the event that this is information that is protected by federal Confidentiality of Substance User Disorder Patient Records, 42 CFR Part 2 prohibits the unauthorized disclosure of these records.[facility] Encounter Details Date Type Department Care Team (Late st Contact Info) Description 03/23/2019 Orders Only [place] Transplant Surgery [address] [facility], 19th Floor [address] [place], [place] [address] Cathleen Gallegos MD [address] [facility] [place] [address] Social History Tobacco Use Types Packs/Day Years [...] Surgery [address] [facility], 19th Floor [address] [place] [address] Apt confirmed-EH documented as of this encounter [...] 2.71 1.30 - 2.90 10(3)/mcL EXTERNAL LAB [place] Absolute - External 0.48 0.10 - 0.80 [...] on 09/0109/01/2020 09/05/2020 09/25/2020 12: 31 AM SR. SOCIAL MEDIA & MOBILE MANAGER documented as of this encounter Care Teams Livestock Farm Workers Relationship Specialty Start Date End Date Juan Laguerre MD [address] [facility] [address] [place] [address] PCP - General Family Medicine 01/02/18 Aubrey Crabtree III, MD [address] [facility] [address] [place] [address] Hematology and Medical Oncology 10/01/18 Jaki Nieves, PhD [address] [facility] [address] [place] [address] Genetic Counseling 11/27/18 documented as of this encounter
--- OUTSIDE RECORDS SUMMARY | 2025-08-09 10:26 | XMS_ITS | Encounter Summary ---
Author Organization [facility] Address [address] [place] [address] Care Team Providers Care Christian Science Nurse Name Role Phone Juan Laguerre MD Primary Care Provider [phone] Bro AWAN MD, Aubrey Lane Unavailable [phone] Jaki Nieves PhD Unavailable [phone] Source Comments In the event that this is information that is protected by federal Confidentiality of Substance User Disorder Patient Records, 42 CFR Part 2 prohibits the unauthorized disclosure of these records.[facility] Encounter Details Date Type Department Care Team (Late Contact Info) Description 11/30/2018 Procedure Pass [place] Radiology [address], [address]th [place] [address] Social History Tobacco Use Types Packs/Day Years [...] Upcoming Encounters Date Type Department Care Team ([facility] Contact Info) Description 07/15/2026 1:00 PM CDT Office Visit [place] Transplant Surgery [address] [facility], 19th Floor [address] [place] [address] Apt confirmed-EH documented as of this encounter Visit Diagnoses Not on filedocumented in this encounter Additional Health Concerns Infection Onset Date Last Indicated Resolved Time COVID-19 Comment:Tested + on 09/0109/01/2020 09/05/2020 09/25/2020 12: 31 AM ACID BATH MIXER documented as of this encounter Care Teams Christian Science Nurse Relationship Specialty Start Date End Date Juan Laguerre MD [address] [id number] PCP - General Family Medicine 01/02/18 Aubrey Crabtree III, MD [address] [address] Hematology and Medical Oncology 10/01/18 Jaki Nieves, PhD [address] [facility] [address] [place] [address] Genetic Counseling 11/27/18 documented as of this encounter
--- OUTSIDE RECORDS SUMMARY | 2025-08-09 10:26 | XMS_ITS | Encounter Summary ---
Author Organization [facility] Address [facility] [place] [address] Care Team Providers Care Raw Finish Mill Operator Name Role Phone Anh Cool Primary Care Provider [phone] Encounter Details Date Type Department Care Team (Late st Contact Info) Description 07/23/2025 [facility] Outpatient Visit [facility] Orthopedics [address] [place] [address], [address] [address] Document, Scanned Social History Tobacco [...] AM CDT Legal Sex Male 1:47 PM EQUAL OPPORTUNITY REPRESENTATIVE Gender Identity Male 01/12/2024 10:15 AM CDT [...] Description 08/11/2025 8:45 AM CDT Office Visit [facility] Orthopedics [address] [place] [address] Cam Carey PA-C [address] [phone] 08/19/2025 9:00 AM CDT Office Visit [facility] - Ophthalmology [address] [place] [phone] Susannah Wu OD [address] [place] [address] [address] [place] [address] 09/08/2025 8:40 AM EQUAL OPPORTUNITY REPRESENTATIVE Office Visit [facility] Orthopedics [address] [place] [address] Leno Herrera DO [facility] [address] [place] [address] [place] [phone] 09/23/2025 11:20 AM EQUAL OPPORTUNITY REPRESENTATIVE Office Visit [facility] - Endocrinology [address] [place] [phone] Katja Li MD [address] [place] [address] [address] [place] [address] documented as of this encounter Visit Diagnoses Not on filedocumented in this encounter Care Teams Raw Finish Mill Operator Relationship Specialty Start Date End Date Anh Cool PCP - General Internal Medicine 03/09/25 08/03/25 documented as of this encounter
--- OUTSIDE RECORDS SUMMARY | 2025-08-09 10:26 | XMS_ITS | Encounter Summary ---
Author Organization [facility] Address [address] [place] [address] Care Team Providers Care Assistant Facility Manager Name Role Phone Juan Laguerre MD Primary Care Provider [phone] rBo AWAN MD, Aubrey Lane Unavailable [phone] Jaki Nieves PhD Unavailable [phone] Source Comments In the event that this is information that is protected by federal Confidentiality of Substance User Disorder Patient Records, 42 CFR Part 2 prohibits the unauthorized disclosure of these records.[facility] Encounter Details Date Type Department Care Team (Late st Contact Info) Description 12/17/2018 Orders Only [place] Cardiology [address] [place] [address] [place] [phone] [place] [address] [place] [address] [place] [phone] Social History Tobacco Use Types Packs/Day Years [...] [facility], 19th Floor [address] [place] [address] Apt confirmed-EH documented as of this encounter Results * (ABNORMAL) Protime-INR #[id number] -Non-Office (Future) (12/17/2018 9:52 AM MOTOR TESTER) PT 117.5(C) 9.2 - 13.0 Second(s) [facility] Comment:Results called by DAJA Severino , and read back by Dr. Lockhart, on 12/17/2018 at 12:03 PM..Corrected from 117.5 Second(s) [Critical] on 12/17/18 12:05:47 MOTOR TESTER by Anaya Rodriguez. INR 9.9(C) 0.8 - 1.2 [facility] Comment:Results called by DAJA Severino , and read back by Dr. Lockhart, on 12/17/2018 at 12:03 PM.INR should be used to monitor warfarin therapy..INR should be used to monitor warfarin therapy.Corrected from 9.9 [Critical] on 12/17/18 12:06:00 MOTOR TESTER by Anaya Rodriguez. Blood specimen (specimen) 12/17/2018 9:52 AM MOTOR TESTER 12/17/2018 10:33 AM MOTOR TESTER Narrative [facility] - 12/17/2018 12:06 PM MOTOR TESTER ORDERING DEPARTMENT:[facility] [address] [facility] [place] [address] (GALTER) Ordering Provider:Federico CARLOS Call Back R Jorge Carlos MD HEMATOLOGY ORDERABLES Huseyin cris Result - Final [facility] Alysa Hackett [address] [place] [address] documented in this encounter Visit Diagnoses Diagnosis long-term (current) use of anticoagulants- Primary Long-term (current) use of anticoagulants remote computer terminal operator (current) use of anticoagulants Long-term (current) use of anticoagulants documented in this encounter Additional Health Concerns Infection Onset Date Last Indicated Resolved Time COVID-19 Comment:Tested + on 09/0109/01/2020 09/05/2020 09/25/2020 12: 31 AM MOTOR TESTER documented as of this encounter Care Teams Assistant Facility Manager Relationship Specialty Start Date End Date Juan Laguerre MD [address] [address] PCP - General Family Medicine 01/02/18 Aubrey Crabtree III, MD [address] [address] Hematology and Medical Oncology 10/01/18 Jaki Nieves, PhD [address] [facility] [address] [place] [address] Genetic Counseling 11/27/18 documented as of this encounter
--- OUTSIDE RECORDS SUMMARY | 2025-08-09 10:26 | XMS_ITS | Encounter Summary ---
Author Organization [facility] Address [address] [place] [address] Care Team Providers Care Screen Printing Machine Operator Helper Name Role Phone Juan Laguerre MD Primary Care Provider [phone] Bro AWAN MD, Aubrey Lane Unavailable [phone] Jaki Nieves PhD Unavailable [phone] Source Comments In the event that this is information that is protected by federal Confidentiality of Substance User Disorder Patient Records, 42 CFR Part 2 prohibits the unauthorized disclosure of these records.[facility] Encounter Details Date Type Department Care Team (Late Contact Info) Description 03/30/2019 Orders Only [place] Transplant Surgery [address] [facility], 19th Floor [address] [place] [address] Cara Cook RN Social History Tobacco Use [...] [address], 19th Floor [address] [place] [address] Apt confirmed-EH documented as of this encounter [...] on 09/0109/01/2020 09/05/2020 09/25/2020 12: 31 AM STATION ATTENDANT documented as of this encounter Care Teams Screen Printing Machine Operator Helper Relationship Specialty Start Date End Date Juan Laguerre MD [address] [place] [address] [place] [address] PCP - General Family Medicine 01/02/18 Aubrey Crabtree III, MD [address] [place] [address] [address] [place] [address] Hematology and Medical Oncology 10/01/18 Jaki Nieves, PhD [address] [facility] [address] [place] [address] Genetic Counseling 11/27/18 documented as of this encounter
--- OUTSIDE RECORDS SUMMARY | 2025-08-09 10:26 | XMS_ITS | Encounter Summary ---
Author Organization [facility] Address [address] [place] [address] Care Team Providers Care Firer Watertender Name Role Phone Anh Cool Primary Care Provider [phone] Encounter Details Date Type Department Care Team (Late st Contact Info) Description 07/30/2025 Results Follow-Up [facility] - [facility] Op [address] [place] [address] Leno Herrera DO [address] [place] [phone] Social History Tobacco Use Types Packs/Day [...] AM CDT Legal Sex Male 1:47 PM DESIGN SALES CONSULTANT Gender Identity Male 01/12/2024 10:15 AM CDT [...] Description 08/11/2025 8:45 AM CDT Office Visit [facility] Health Orthopedics [address] [place] [address] Cam Carey PA-C [address] [address] 08/19/2025 9:00 AM CDT Office Visit [facility] - Ophthalmology [address] [place] [phone] Susannah Wu OD [address] [place] [address] [address] [place] [phone] 09/08/2025 8:40 AM DESIGN SALES CONSULTANT Office Visit [facility] Orthopedics [address] [place] [address] Leno Herrera DO [address] [place] [address] [place] [phone] 09/23/2025 11:20 AM DESIGN SALES CONSULTANT Office Visit [facility] - Endocrinology [address] [place] [phone] Katja Li MD [address] [place] [address] documented as of this encounter Visit Diagnoses Not on filedocumented in this encounter Care Teams Firer Watertender Relationship Specialty Start Date End Date Anh Cool PCP - General Internal Medicine 03/09/25 08/03/25 documented as of this encounter
--- OUTSIDE RECORDS SUMMARY | 2025-08-09 10:26 | XMS_ITS | Encounter Summary ---
Author Organization [facility] Address [address] [place] [address] Care Team Providers Care Senior Premium Auditor Name Role Phone Juan Laguerre MD Primary Care Provider [phone] Bro AWAN MD, Aubrey Lane Unavailable [phone] Jaki Nieves PhD Unavailable [phone] Source Comments In the event that this is information that is protected by federal Confidentiality of Substance User Disorder Patient Records, 42 CFR Part 2 prohibits the unauthorized disclosure of these records.[facility] Encounter Details Date Type Department Care Team (Late st Contact Info) Description 04/13/2019 Orders Only [place] Transplant Surgery [address] [facility], 19th [address] [place], [place] [address] Cathleen Gallegos MD [address] [facility] [address] [address] Social History Tobacco Use Types Packs/Day Years [...] [facility], 19th Floor [address] [place] [address] Apt confirmed-EH documented as of this encounter Visit Diagnoses Diagnosis Kidney transplant 01/02/2008 Liver transplant 01/02/2008 Liver replaced by transplant documented in this encounter Additional Health Concerns Infection Onset Date Last Indicated Resolved Time COVID-19 Comment:Tested + on 09/0109/01/2020 09/05/2020 09/25/2020 12: 31 AM IMMUNOHEMATOLOGIST documented as of this encounter Care Teams Senior Premium Auditor Relationship Specialty Start Date End Date Juan Laguerre MD [address] [facility] [address] [place] [address] PCP - General Family Medicine 01/02/18 uAbrey Crabtree III, MD [address] [facility] [address] [place] [address] Hematology and Medical Oncology 10/01/18 Jaki Nieves, PhD [address] [facility] [place] [place] [address] Genetic Counseling 11/27/18 documented as of this encounter
--- OUTSIDE RECORDS SUMMARY | 2025-08-09 10:26 | XMS_ITS | Encounter Summary ---
Author Organization [facility] Address [address] [place] [address] Care Team Providers Care Flamer Sealer Name Role Phone Juan Laguerre MD Primary Care Provider [phone] Bro AWAN MD, Aubrey Lane Unavailable [phone] Jaki Nieves PhD Unavailable [phone] Source Comments In the event that this is information that is protected by federal Confidentiality of Substance User Disorder Patient Records, 42 CFR Part 2 prohibits the unauthorized disclosure of these records.[facility] Reason for Visit * Reason Onset Date Comments Medications Refill 04/06/2019 Encounter Details Date Type Department Care Team (Late st Contact Info) Description 04/06/2019 Refill [place] Transplant Surgery [address] [facility], 19th Floor [address] [place] [address] Edwin Del Toro MD [address] [facility] [address], [place] [address] Medications Refill Social History Tobacco Use Types [...] [facility], 19th Floor [address] [place] [address] Apt confirmed-EH documented as of this encounter Visit Diagnoses Not on filedocumented in this encounter Additional Health Concerns Infection Onset Date Last Indicated Resolved Time COVID-19 Comment:Tested + on 09/0109/01/2020 09/05/2020 09/25/2020 12: 31 AM BORE MINER OPERATOR documented as of this encounter Care Teams Flamer Sealer Relationship Specialty Start Date End Date Juan Laguerre MD [address] [facility] [address] [place] [address] PCP - General Family Medicine 01/02/18 Aubrey Crabtree III, MD [address] [facility] [address] [place] [address] Hematology and Medical Oncology 10/01/18 Jaki Nieves, PhD [address] [facility] [place] [place] [address] Genetic Counseling 11/27/18 documented as of this encounter
--- OUTSIDE RECORDS SUMMARY | 2025-08-09 10:26 | XMS_ITS | Encounter Summary ---
Author Organization [facility] Address [address] [place] [address] Care Team Providers Care Performance Improvement Specialist Name Role Phone Juan Laguerre MD Primary Care Provider [phone] Bro AWAN MD, Aubrey Lane Unavailable [phone] Jaki Nieves PhD Unavailable [phone] Source Comments In the event that this [...] [facility], [address]th [address] [place], [place] [address] Cathleen Gallegos MD [address] [facility] [address], [place] [address] Social History Tobacco Use Types Packs/Day Years [...] [facility], [address]th Floor [address] [place] [address] Apt confirmed-EH documented as of this encounter [...] Organization Address City/[facility]/ZIP Co de Phone Number EXTERNAL LAB * [...] Absolute - External 2,812 cells/uL EXTERNAL LAB [place] Absolute - External 152(L) cells/uL EXTERNAL LAB [...] 09/0109/01/2020 09/05/2020 09/25/2020 12: 31 AM DIRECTOR RECREATION documented as of this encounter Care Teams Performance Improvement Specialist Relationship Specialty Start Date End Date Juan Laguerre MD [address] [facility] [address] [place] [address] PCP - General Family Medicine 01/02/18 Aubrey Crabtree III, MD [address] [facility] [address] [place] [address] Hematology and Medical Oncology 10/01/18 Jaki Nieves, PhD [address] [facility] [address] [place] [address] Genetic Counseling 11/27/18 documented as of this encounter
--- OUTSIDE RECORDS SUMMARY | 2025-08-09 10:26 | XMS_ITS | Encounter Summary ---
Author Organization [facility] Address [address] [place] [address] Care Team Providers Care Tapper Shank Name Role Phone Juan Laguerre MD Primary Care Provider [phone] Bro AWAN MD, Aubrey Lane Unavailable [phone] Jaki Nieves PhD Unavailable [phone] Source Comments In the event that this is information that is protected by federal Confidentiality of Substance User Disorder Patient Records, 42 CFR Part 2 prohibits the unauthorized disclosure of these records.[facility] Encounter Details Date Type Department Care Team (Late st Contact Info) Description 04/06/2019 Orders Only [place] Transplant Surgery [address] [facility], [address]th Floor [address] [place], [place] [id number] Cathleen Gallegos MD [address] [facility] [address] [address] Social History Tobacco Use Types Packs/Day Years [...] [facility] [address] [address] [place] [address] Apt confirmed-EH documented as of this encounter [...] with Differential (04/09/2019 8:12 AM CDT) Pathologist [facility] White Blood Cells - External 9.7 4.0 [...] Absolute - External 1,930 cells/uL EXTERNAL LAB [place] Absolute - External 1,351(H) cells/uL EXTERNAL LAB [...] on 09/0109/01/2020 09/05/2020 09/25/2020 12: 31 AM HEAT TREAT PULLER documented as of this encounter Care Teams Tapper Shank Relationship Specialty Start Date End Date Juan Laguerre MD [address] [facility] [address] [place] [address] PCP - General Family Medicine 01/02/18 Aubrey Crabtree III, MD [address] [facility] [address] [place] [address] Hematology and Medical Oncology 10/01/18 Jaki Nieves, PhD [address] [facility] [address] [place] [address] Genetic Counseling 11/27/18 documented as of this encounter
--- OUTSIDE RECORDS SUMMARY | 2025-08-09 10:26 | XMS_ITS | Encounter Summary ---
Author Organization [facility] Address [address] [place] [address] Care Team Providers Care Activities Therapist Name Role Phone Juan Laguerre MD Primary Care Provider [phone] Bro AWAN MD, Aubrey Lane Unavailable [phone] Jaki Nieves PhD Unavailable [phone] Source Comments In the event that this is information that is protected by federal Confidentiality of Substance User Disorder Patient Records, 42 CFR Part 2 prohibits the unauthorized disclosure of these records.[facility] Encounter Details Date Type Department Care Team (Late st Contact Info) Description 03/09/2019 Orders Only [place] Transplant Surgery [address] [facility], [address]th [address] [place], [place] [address] Cathleen Gallegos MD [address] [facility] [address] [address] Social History Tobacco Use Types Packs/Day Years [...] Office Visit [place] Transplant Surgery [address] [facility], [address] [place] [address] Apt confirmed-EH documented as of this encounter [...] Absolute - External 3,101 cells/uL EXTERNAL LAB [place] Absolute - External 838 cells/uL EXTERNAL LAB [...] on 09/0109/01/2020 09/05/2020 09/25/2020 12: 31 AM HYDRO OPERATOR documented as of this encounter Care Teams Activities Therapist Relationship Specialty Start Date End Date Juan Laguerre MD [address] [facility] [address] [place] [address] PCP - General Family Medicine 01/02/18 Aubrey Crabtree III, MD [address] [facility] [address] [place] [address] Hematology and Medical Oncology 10/01/18 Jaki Nieves, PhD [address] [facility] [address] [place] [address] Genetic Counseling 11/27/18 documented as of this encounter
--- OUTSIDE RECORDS SUMMARY | 2025-08-09 10:26 | XMS_ITS | Encounter Summary ---
Author Organization [facility] Address [address] [place] [address] Care Team Providers Care Mime Artist Name Role Phone Juan Laguerre MD Primary Care Provider [phone] Bro AWAN MD, Aubrey Lane Unavailable [phone] Jaki Nieves PhD Unavailable [phone] Source Comments In the event that this is information that is protected by federal Confidentiality of Substance User Disorder Patient Records, 42 CFR Part 2 prohibits the unauthorized disclosure of these records.[facility] Encounter Details Date Type Department Care Team (Late st Contact Info) Description 04/27/2019 Orders Only [place] Transplant Surgery [address] [facility], [address]th [address] [place], [place] [address] Cathleen Gallegos MD [address] [facility] [address], [place] [address] Social History Tobacco Use Types Packs/Day Years [...] Office Visit [place] Transplant Surgery [address] [facility], [address]th Floor [address] [place] [address] Apt confirmed-EH documented as of this encounter Visit Diagnoses Diagnosis Kidney transplant 01/02/2008 Liver transplant 01/02/2008 Liver replaced by transplant documented in this encounter Additional Health Concerns Infection Onset Date Last Indicated Resolved Time COVID-19 Comment:Tested + on 09/0109/01/2020 09/05/2020 09/25/2020 12: 31 AM EXERCISE PHYSIOLOGIST CERTIFIED documented as of this encounter Care Teams Mime Artist Relationship Specialty Start Date End Date Juan Laguerre MD [address] [facility] [address] [place] [address] PCP - General Family Medicine 01/02/18 Aubrey Crabtree III, MD [address] [facility] [address] [place] [address] Hematology and Medical Oncology 10/01/18 Jaki Nieves, PhD [address] [facility] [address] [place] [address] Genetic Counseling 11/27/18 documented as of this encounter
--- OUTSIDE RECORDS SUMMARY | 2025-08-09 10:26 | XMS_ITS | Encounter Summary ---
Author Organization [facility] Address [address] [place] [address] Care Team Providers Care Call Taker Name Role Phone Juan Laguerre MD Primary Care Provider [phone] Bro AWAN MD, Aubrey Lane Unavailable [phone] Jaki Nieves PhD Unavailable [phone] Source Comments In the event that this is information that is protected by federal Confidentiality of Substance User Disorder Patient Records, 42 CFR Part 2 prohibits the unauthorized disclosure of these records.[facility] Encounter Details Date Type Department Care Team (Late Contact Info) Description 11/05/2018 Procedure Pass [place] Radiology [address], [address] [place] [address] Social History Tobacco Use Types Packs/Day Years [...] Upcoming Encounters Date Type Department Care Team ([facility] Contact Info) Description 07/15/2026 1:00 PM CDT Office Visit [place] Transplant Surgery [address] [facility], [address] [place] [address] Apt confirmed-EH documented as of this encounter Visit Diagnoses Not on filedocumented in this encounter Additional Health Concerns Infection Onset Date Last Indicated Resolved Time COVID-19 Comment:Tested + on 09/0109/01/2020 09/05/2020 09/25/2020 12: 31 AM CD MIXER documented as of this encounter Care Teams Call Taker Relationship Specialty Start Date End Date Juan Laguerre MD [address] [id number] PCP - General Family Medicine 01/02/18 Aubrey Crabtree III, MD [address] [address] Hematology and Medical Oncology 10/01/18 Jaki Nieves, PhD [address] [facility] [address] [place] [address] Genetic Counseling 11/27/18 documented as of this encounter
--- OUTSIDE RECORDS SUMMARY | 2025-08-09 10:26 | XMS_ITS | Encounter Summary ---
Author Organization [facility] Address [address] [place] [address] Care Team Providers Care Vaccine Specialist Name Role Phone Juan Laguerre MD Primary Care Provider [phone] Bro AWAN MD, Aubrey Lane Unavailable [phone] Jaki Nieves PhD Unavailable [phone] Source Comments In the event that this is information that is protected by federal Confidentiality of Substance User Disorder Patient Records, 42 CFR Part 2 prohibits the unauthorized disclosure of these records.[facility] Encounter Details Date Type Department Care Team (Late st Contact Info) Description 11/18/2018 Orders Only [place] Transplant Surgery [address] [facility], [address]th [address] [place], [place] [address] Noe Keyes MD [address] [facility] [address] [address] Social History Tobacco Use Types Packs/Day Years [...] [facility], [address]th [address] [place] [address] Apt confirmed-EH documented as of this encounter Visit Diagnoses Not on filedocumented in this encounter Additional Health Concerns Infection Onset Date Last Indicated Resolved Time COVID-19 Comment:Tested + on 09/0109/01/2020 09/05/2020 09/25/2020 12: 31 AM LEARNING CONSULTANT documented as of this encounter Care Teams Vaccine Specialist Relationship Specialty Start Date End Date Juan Laguerre MD [address] [facility] [address] [place] [address] PCP - General Family Medicine 01/02/18 Aubrey Crabtree III, MD [address] [facility] [address] [place] [address] Hematology and Medical Oncology 10/01/18 Jaki Nieves, PhD [address] [facility] [address] [place] [address] Genetic Counseling 11/27/18 documented as of this encounter
--- OUTSIDE RECORDS SUMMARY | 2025-08-09 10:26 | XMS_ITS | Clinical Summary ---
Author Organization [facility] Address [facility] [facility] [place] [address] Care Team Providers Care Cabinetmaker Helper Name Role Phone Unavailable Primary Care Provider Unavailabl e Source Comments [facility],non-owned Affiliates and Associated Physician Practices is amultiple site organization consisting of ambulatory clinics and hospital sitesin [place], [place], [place] and [place]. This disclosure is being madepursuant to the Care Everywhere program and may not contain all information available regarding this patient. Last updated 18.[facility] Allergies Active Allergy Reactions Criticality Noted Date [...] complication, with long-term current use of insulin ([facility]) Use 1 Each every 10 days 3 Each Active Glucagon (Gvoke HypoPen 2-Pack) 1 MG/0.2ML SOAJ Inject 1 mg subcutaneously as directed 0.4 mL 025 Active blood glucose test stripIndications:T ype 2 diabetes mellitus with other specified complication, with long-term current use of insulin ([facility]) Use 1 (one) strip 2 times [...] meals 30 mL 4 Active HYDROcodone-acetam inophen ([place]) 7.5-325 MG tabletIndications: Nonhealing nonsurgical wound Take [...] 08/06/2025 Refill [facility] - Endocrinology [address] [place] [phone] Katja Li MD MEDICATION REFILL 08/04/2025 8:20 AM CDT Ancillary Procedure [facility] - Radiology [address] [place] [address] Cam Carey PA-C Post-operative state 08/04/2025 8:15 AM CDT Office Visit [facility] [address] [place] [address] Cam Carey PA-C Post-operative state (Primary Dx) 08/02/2025 1:30 PM CDT Office Visit [facility] [address] [place] [phone] Leno Herrera DO Post-operative state (Primary Dx) 08/01/2025 Orders Only [facility] [address] [place] [address] Leno Herrera DO 07/30/2025 Results Follow-Up [facility] Op [address] [place] [address] Leno Herrera DO 07/29/2025 Travel 07/27/2025 12:50 PM CDT - 07/27/2025 2:10 PM CDT Surgery [facility] Op [address] [place] [address] Leno Herrera DO RIGHT ANKLE IRRIGATION AND DEBRIDEMENT OF WOUND, KERECIS SKIN GRAFT APPLICATION, AND PROVENA WOUND VAC 07/27/2025 12:47 PM CDT Anesthesia Event [facility] Op [address] [place] [address] Phillip Welch MD Bunch, Krista M, EVALUATION MANAGER-PEARL STRINGER 07/27/2025 10:39 AM CDT - 07/27/2025 3:40 PM CDT Hospital Encounter [facility] Op [address] [place] [address] Leno Herrera DO Surgery General Discharge Disposition: Home or Self Care 07/27/2025 Travel 07/26/2025 8:14 AM CDT - 07/26/2025 11:59 PM CDT Hospital Encounter [facility] - Lab [address] [facility], [address] [place] [address] Cam Carey PA-C Discharge Disposition: Home or Self Care 07/23/2025 Orders Only [facility] End[facility] [address] [facility] [place] [phone] Katja Li MD Type 2 diabetes mellitus with other specified complication, with long-term current use of insulin (HCC) 07/23/2025 Telephone [facility] [address], [address] [phone] Leno Herrera DO Med Question (Spoke w/ [...] days prior to sx. Pt's understood.) 07/23/2025 [facility] Outpatient Visit [address] [phone] Document, Scanned 07/21/2025 8:50 AM CDT Office Visit [address] [address] Leno Herrera, Post-operative state (Primary Dx) 07/15/[address] [phone] Leno Herrera DO Question 07/14/2025 11:15 AM CDT Office Visit [address] [address] Cam Carey PA-C Post-operative state (Primary Dx) 07/09/2025 Telephone [facility] [address] [place] [phone] Katja Li MD Rx Formulary/Therapeuti c Substitution (Lantus to Semglee) 07/07/2025 9:30 AM CDT Office Visit [address] [address] Cam Carey PA-C Post-operative state (Primary Dx) 07/07/2025 Refill [facility] [address] [place] [phone] Katja Li MD MEDICATION REFILL 06/29/2025 9:45 AM CDT Office Visit [address] [phone] Cam Carey PA-C Bilateral leg and foot pain (Primary Dx); Bilateral leg pain 06/29/2025 Travel 06/22/2025 9:00 AM CDT Office Visit [facility] [address], [address] [address] Cam Carey PA-C Post-operative state (Primary Dx) 06/16/2025 1:45 PM CDT Office Visit [address] [address] Cam Carey PA-C Post-operative state (Primary Dx) 06/10/2025 1:17 PM CDT Anesthesia Event [facility] Op [address] [place] [address] Ankur Talley MD 06/10/2025 11:20 AM CDT - 06/10/2025 12:40 PM CDT Surgery [address] [address] Leno Herrera DO IRRIGATION AND DEBRIDEMENT OF RIGHT ANKLE WITH WOUND VAC PLACEMENT 06/10/2025 8:41 AM CDT - 06/10/2025 4:40 PM CDT Hospital Encounter [address] [address] Leno Herrera DO Surgery General Discharge Disposition: Home or Self Care 06/02/2025 8:50 AM CDT Office Visit [address] [address] Leno Herrera DO Post-operative state (Primary Dx) 05/26/2025 8:40 AM CDT Office Visit [address] [address] Leno Herrera DO Non-healing surgical wound, subsequent encounter (Primary Dx); Post-operative state 05/19/2025 11:45 AM CDT Office Visit [address] [address] Micah Avila PA-C Post-operative state (Primary Dx); Non-healing surgical wound, subsequent encounter 05/12/2025 10:30 AM CDT Office Visit [facility] [address] [place] [address] Micah Avila PA-C Post-operative state (Primary Dx) [...] AM CDT Legal Sex Male 1:47 PM ELECTRONIC DATA PROCESSING AUDITOR Gender Identity Male 01/12/2024 10:15 AM CDT [...] Description 08/11/2025 8:45 AM CDT Office Visit [facility] Orthopedics [address] [place] [phone] Cam Carey PA-C [address] [facility] [address] [place] [phone] 08/19/2025 9:00 AM CDT Office Visit [facility] Ophthal[facility] [address] [place] [address], [place] [phone] Susannah Wu OD [address] [place] [address] GL DOOR [address] [place] [phone] 09/08/2025 8:40 AM ELECTRONIC DATA PROCESSING AUDITOR Office Visit [facility] [address] [place] [address] Leno Herrera DO [address] [place] [address] [place] [phone] 09/23/2025 11:20 AM ELECTRONIC DATA PROCESSING AUDITOR Office Visit [facility] [address] [place] [phone] Katja Li MD [address] [place] [address] [place] [phone] Health Maintenance Due Date Last Done Comments [...] this topic Medical Devices Implanted Type Area Speech And Language Assistant Device Identifier Shelf Expiration Date Model / Serial / Lot Graft Skn Surgiclose 19sq Cm Henrry Omega3 Implanted:Qty: 1 on 06/10/2025 by Leno Herrera DO at [facility] Right: Ankle [employer] 12/13/2027 [id number] / / [id number] X Drsg 7x10cm [employer] Or Mesh Omega3 Lf Implanted:Qty: 1 on 06/10/2025 by Leno Herrera DO at [facility] Right: Ankle [employer] 09/15/2026 [id number] / / [id number] A Graft Skn Surgiclose 19sq Cm Henrry Omega3 Implanted:Qty: 1 on 07/27/2025 by Leno Herrera DO at [facility] Right: Ankle [employer] 12/13/2027 [id number] / / [id number] X Gft Skn 4x6 Cm Msh Omega3 Surgiclose Implanted:Qty: 1 on 07/27/2025 by Leno Herrera DO at [facility] Right: Ankle [employer] 07/21/2027 [id number] / / [id number] A Procedures Procedure Name Priority Date/Time Associated Diagnosis Comments XR ANKLE RIGHT 3VW OR MORE Routine 08/04/2025 8:13 AM CDT Post-operative state GLUCOSE - POINT OF CARE Routine 07/27/2025 2:31 PM CDT EKG 12-LEAD STAT 07/27/2025 2:10 PM CDT Other cardiac arrhythmia CULTURE WOUND+GRAM STAIN STAT 07/27/2025 1:25 PM CDT Infection CULTURE ANAEROBE STAT 07/27/2025 1:25 PM CDT Infection RI PORFIRIO MUSC/FASCIA 20 SQ CM/< 07/27/2025 12:40 [...] STAT 06/10/2025 2:31 PM CDT Diagnosis unknown RI PORFIRIO MUSC/FASCIA 20 SQ CM/< 06/10/2025 1:11 PM CDT T81.40XA Special Needs IRRISEPT, IRRAJET, WOUND VAC GLUCOSE - POINT OF CARE Routine 06/10/2025 9:25 AM CDT HEMOGLOBIN A1C - POINT OF CARE (AMB) [facility] Routine 01/04/2025 11:06 AM ELECTRONIC DATA PROCESSING AUDITOR Type 2 diabetes mellitus with other specified [...] ORDERABLE S Final Result Performing Organization Address City/[facility]/ZIP Co de Phone Number [facility] [address] [place] [address] * EKG 12-Lead (07/27/2025 2:10 PM CDT) Ventricular Rate 70 BPM [facility] Atrial Rate 70 BPM [facility] P-R Interval 344 ms [facility] QRS Duration ms 106 ms [facility] Q-T Interval ms 414 ms [facility] QTC Calculation (Bezet) 447 ms [facility] Calculated P Coward 29 degrees [facility] Calculated R Coward -39 degrees [facility] Calculated T Coward 103 degrees [facility] Interpretation EKG Sinus rhythm with 1st degree A-V block with Premature supraventricular complexes Left axis deviation Left ventricular hypertrophy with repolarization abnormality ( R in aVL , Frank product ) Anteroseptal infarct , age undetermined Abnormal ECG No previous ECGs available Confirmed by POWER HOLGUIN LEE ([id number]) on 07/28/2025 11:14:07 AM [facility] 07/27/2025 2:10 PM CDT 07/28/2025 11:14 AM CDT Anish Crow MD ECG ORDERABLES Edited Result - Final Performing Organization Address City/[facility] Co de Phone Number [facility] * CULTURE WOUND+GRAM STAIN (07/27/2025 1:25 PM CDT) Only the most recent of2 resultswithin the time period is included. Culture No growth HENRRY 07/30/2025 12:21 AM CDT [facility] Gram Stain Light Red blood cells 07/30/2025 12:21 AM CDT [facility] Gram Stain Rare Polymorphonuclear cells 07/30/2025 12:21 AM CDT [facility] Gram Stain Rare Gram-positive cocci 07/30/2025 12:21 AM CDT [facility] Microbiology SPECIMEN FROM WOUND / Unknown Collection / Unknown 07/27/2025 1:25 PM CDT 07/27/2025 3:11 PM CDT Comment:Pre-op diagnosis: T81.40XA Narrative [facility] - 07/30/2025 12:21 AM CDT Surgical Description: Wound Culture Lateral Ankle Organisms seen on initial Gram stain may be anaerobic or not viable for aerobic growth. Leno Herrera DO LAB - MICROBIOLOGY ORDERABLES Final Result Performing Organization Address [facility] de Phone Number [facility] [address] [place] [address], [facility] [phone] * (ABNORMAL) CULTURE ANAEROBE (07/27/2025 1:25 PM CDT) Only the most recent of2 resultswithin the time period is included. Culture Rare Staphylococcus intermedius/pseudo ntermedius(A) HENRRY 08/02/2025 3:09 PM CDT [facility] Microbiology SPECIMEN FROM WOUND / Unknown Collection / Unknown 07/27/2025 1:25 PM CDT 07/27/2025 3:11 PM CDT Comment:Pre-op diagnosis: T81.40XA Narrative [facility] - 08/02/2025 3:09 PM CDT Surgical [...] DO LAB - MICROBIOLOGY ORDERABLES Final Result [facility] [address] [facility] [place] [address], [facility] [phone] * VAS Arterial Ankle Arm Index (07/26/2025 9:32 AM CDT) Anatomical Region Laterality Modality Ankle / Foot, Upper Extremity In travascular Ultrasound 07/26/2025 9:15 AM CDT Narrative Procedure Note Sophie Wing DO - 07/26/2025 [facility] [place] [address] [place] [address] Lower Extremity Arterial Doppler Report Pat.Name: BIBIANA MAYFIELD Pat.ID: [id number] .Date: 07/26/2025 Exam Time: 9:15:00 AM Study Type:VINH/PVR Age: 2 1960,64Y Sex: MALE Sonogrphr: Amy Martinez, OTILIOT,RDMS, RDCS Pat. Stat.:Outpatient CPT - 4: 35950 Reason for Study: Wound on the right foot History / Clinical: Hypertension, Diabetes, CVA, Smoking - quit >6mo. Procedures: Ankle Brachial Index Visit ID: [id number] ++++++++++++++++++++++++++++++++++++ SUMMARY: ++++++++++++++++++++++++++++++++++++ The digital brachial indices [...] Tri to Bi Dorsalis Pedis Bi to Hickman Tri to Bi ++++++++++++++++++++++++++++++++++++ MEASUREMENTS: ++++++++++++++++++++++++++++++++++++ PRESSURES [...] OF CARE (AMB) [facility] (01/04/2025 11:06 AM ELECTRONIC DATA PROCESSING AUDITOR) [facility] Hemoglobin A1c POCT 9.8 % [facility] BLOOD SPECIMEN / Unknown 01/04/2025 11:06 AM ELECTRONIC DATA PROCESSING AUDITOR Katja Li MD LAB - POINT OF CARE ORDERABLES Final Result Performing Organization Address [facility] Co de Phone Number [facility] [address] [facility] [place] [address], [facility] [phone] * (ABNORMAL) MICROALB/CREAT RATIO URINE RANDOM PANEL [...] category. REPORT COMMENT: FASTING:YES Test Performed at: [facility] [address] [place] [address] KHOA HATCH MD 02/14/2024 9:21 AM CDT 02/14/2024 9:24 AM CDT Katja Li MD LAB - URINE CHEMISTRY ORDERABLE S Final Result Performing Organization Address City/[facility]/ZIP Co de Phone Number [facility] [address] [place] [address] * (ABNORMAL) COMPREHENSIVE METABOLIC PANEL (02/14/2024 9:21 [...] 46 U/L [facility] Comment: Test Performed at: [employer] [facility] [employer] [address] KHOA HATCH MD 02/14/2024 9:21 AM CDT 02/14/2024 9:24 AM CDT Katja Li MD LAB - CHEMISTRY ORDERABLES Joana l Result [facility] [address] [place] [address] from Last 3 Months or Most Recently Relevant to Health Maintenance Insurance ANTH
--- OUTSIDE RECORDS SUMMARY | 2025-08-09 10:26 | XMS_ITS | Encounter Summary ---
Author Organization [facility] Address [address] [place] [address] Care Team Providers Care Pc Installation Engineer Name Role Phone Juan Laguerre MD Primary Care Provider [phone] Bro AWAN MD, Aubrey Lane Unavailable [phone] Jaki Nieves PhD Unavailable [phone] Source Comments In the event that this is information that is protected by federal Confidentiality of Substance User Disorder Patient Records, 42 CFR Part 2 prohibits the unauthorized disclosure of these records.[facility] Encounter Details Date Type Department Care Team (Late Contact Info) Description 02/02/2019 Orders Only [place] Transplant Surgery [address] [facility], [address]th [address] [place] [address] Cara Cook RN Social History Tobacco Use [...] [address] [place] [address] Apt confirmed-EH documented as of this encounter [...] ORDERABLE S Final Result Performing Organization Address City/[facility]/ZIP Co de Phone Number EXTERNAL LAB * Transferrin (02/20/2019 6:34 AM CDT) Transferrin - External 272 200 - 360 mg/dL EXTERNAL LAB 02/20/2019 6:34 AM CDT Narrative EXTERNAL LAB - 02/28/2019 9:28 AM CDT Verified by Monie Siddiqui on 02/28/2019. Tawnya Peck MD CHEMISTRY ORDERABLE S Final Result Performing Organization Address [facility] de Phone Number EXTERNAL LAB * Folate (02/20/2019 6:34 AM CDT) Folate, Serum - External 16.7 5.5 - 17.5 ng/mL EXTERNAL LAB 02/20/2019 6:34 AM CDT Narrative EXTERNAL LAB - 02/28/2019 9:28 AM CDT Verified by Monie Siddiqui on 02/28/2019. Twanya Peck MD CHEMISTRY ORDERABLE S Final Result Performing Organization Address City/[facility] Co de Phone Number EXTERNAL [...] ORDERABLE S Final Result Performing Organization Address City/[facility]/ZIP Co de Phone Number EXTERNAL LAB * BK Virus DNA Quant PCR, Blood (02/13/2019 6:21 AM CDT) BK Virus DNA, Qn PCR - External DETECTED EXTERNAL LAB 02/13/2019 6:21 AM CDT Narrative EXTERNAL LAB - 02/17/2019 9:12 AM CDT Verified by Monie Siddiqui on 02/17/2019. Tawnya Peck MD IMMUNOLOGY ORDERABL ES Final Result Performing Organization Address City/[facility] Co de Phone Number EXTERNAL [...] ORDERABLES Final R esult Performing Organization Address City/[facility]/ZIP Co de Phone Number EXTERNAL LAB * BK Virus DNA Quant PCR, Blood (02/06/2019 5:30 AM CDT) BK Virus DNA, Qn PCR - External NOT DET EXTERNAL LAB 02/06/2019 5:30 AM CDT Narrative EXTERNAL LAB - 02/14/2019 2:10 AM CDT Verified by Monie Siddiqui on 02/14/2019. Tawnya Peck MD IMMUNOLOGY ORDERABL ES Final Result Performing Organization Address City/[facility]/ZIP Co de Phone Number EXTERNAL LAB * BK Virus Quant Viral Load, Urine (02/06/2019 5:30 AM CDT) BK Quantitation Urine - External 77,800 EXTERNAL LAB 02/06/2019 5:30 AM CDT Narrative EXTERNAL LAB - 02/14/2019 2:10 AM CDT Verified by Monie Siddiqui on 02/14/2019. Tawnya Peck MD URINE ORDERABLES Fi nal Result Performing Organization Address City/[facility]/ZIP Co de Phone Number EXTERNAL LAB * Mycophenolic Acid (02/06/2019 5:30 AM CDT) Pathologist [facility] Mycophenolic Acid - External 2.1 1.0 - 3.5 EXTERNAL LAB 02/06/2019 5:30 AM CDT Narrative EXTERNAL LAB - 02/10/2019 1:17 PM CDT Verified by Monie Siddiqui on 02/10/2019. Noe Keyes MD CHEMISTRY ORDERABLES Final R esult EXTERNAL LAB * BK Virus Quant Viral Load, Urine (02/06/2019 5:30 AM CDT) [facility] BK Quantitation Urine - External 307,000 EXTERNAL LAB 02/06/2019 5:30 AM CDT Narrative EXTERNAL LAB - 02/10/2019 9:46 AM CDT Verified by Monie Siddiqui on 02/10/2019. Tawnya Peck MD URINE ORDERABLES Fi nal Result Performing Organization Address [facility]/ZIP Co de Phone Number EXTERNAL LAB * Vitamin B12 (02/06/2019 5:30 AM CDT) [facility] Vitamin B12 - External 739 200 - 900 pg/mL EXTERNAL LAB 02/06/2019 5:30 AM CDT Narrative EXTERNAL LAB - 02/10/2019 9:46 AM CDT Verified by Monie Siddiqui on 02/10/2019. Tawnya Peck MD CHEMISTRY ORDERABLE S Final Result Performing Organization Address City/[facility]/ZIP Co de Phone Number EXTERNAL LAB * Transferrin (02/06/2019 5:30 AM CDT) [facility] Transferrin - External 256 200 - 360 mg/dL EXTERNAL LAB 02/06/2019 5:30 AM CDT Narrative EXTERNAL LAB - 02/10/2019 9:46 AM CDT Verified by Monie Siddiqui on 02/10/2019. Tawnya Peck MD CHEMISTRY ORDERABLE S Final Result Performing Organization Address City/[facility]/ZIP Co de Phone Number EXTERNAL LAB * Folate (02/06/2019 5:30 AM CDT) Folate, Serum - External 9.5 5.5 - 17.5 ng/ml EXTERNAL LAB 02/06/2019 5:30 AM CDT Narrative EXTERNAL LAB - 02/10/2019 9:46 AM CDT Verified by Monie Siddiqui on 02/10/2019. Tawnya Peck MD CHEMISTRY ORDERABLE S Final Result Performing Organization Address [facility] de Phone Number EXTERNAL LAB * Tacrolimus (02/06/2019 5:30 AM CDT) Pathologist [facility] Tacrolimus ([id number]), Blood - External 3.4 EXTERNAL LAB 02/06/2019 5:30 AM CDT Narrative EXTERNAL LAB - 02/09/2019 10:13 AM CDT Verified by Galina Raza on 02/09/2019. Noe Keyes MD CHEMISTRY ORDERABLES Final R esult Performing Organization Address [facility] Co de Phone Number EXTERNAL LAB * (ABNORMAL) Comp Metabolic Panel (02/06/2019 5:30 AM CDT) Pathologist [facility] Sodium - External 135 133 - 145 [...] Abs (k/uL) - External 4.54 EXTERNAL LAB [place] Absolute - External 0.44 EXTERNAL LAB - [...] with Microscopic (02/06/2019 5:30 AM CDT) Specific [place], Urine - External 1.009 1.003 - 1.035 [...] ORDERABLES Final Resul t Performing Organization Address City/[facility]/ZIP Co de Phone Number EXTERNAL LAB documented in this encounter Visit Diagnoses Diagnosis 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) Liver replaced by transplant Kidney replaced by transplant documented in this encounter Additional Health Concerns Infection Onset Date Last Indicated Resolved Time COVID-19 Comment:Tested + on 09/0109/01/2020 09/05/2020 09/25/2020 12: 31 AM SHAREMILKER documented as of this encounter Care Teams Pc Installation Engineer Relationship Specialty Start Date End Date Juan Laguerre MD [address] [facility] [address], [place] [address] PCP - General Family Medicine 01/02/18 Aubrey Crabtree III, MD [address] [facility] [address], [place] [address] Hematology and Medical Oncology 10/01/18 Jaki Nieves, PhD [address] [facility] [address] [place] [address] Genetic Counseling 11/27/18 documented as of this encounter
--- OUTSIDE RECORDS SUMMARY | 2025-08-09 10:26 | XMS_ITS | Encounter Summary ---
Author Organization [facility] Address [address] [place] [address] Care Team Providers Care Instrument Lens Generator Name Role Phone Juan Laguerre MD Primary Care Provider [phone] Bro AWAN MD, Aubrey Lane Unavailable [phone] Jaki Nieves PhD Unavailable [phone] Source Comments In the event that this is information that is protected by federal Confidentiality of Substance User Disorder Patient Records, 42 CFR Part 2 prohibits the unauthorized disclosure of these records.[facility] Reason for Visit * Reason Comments Medications Refill Encounter Details Date Type Department Care Team (Late st Contact Info) Description 03/04/2019 Refill [place] Transplant Surgery [address] [facility], [address] Floor [address] [place] [address] Edwin Del Toro MD [address] [facility] [address], [place] [address] Medications Refill Social History Tobacco Use Types [...] [facility] [address] [place] [address] Apt confirmed-EH documented as of this encounter Visit Diagnoses Not on filedocumented in this encounter Additional Health Concerns Infection Onset Date Last Indicated Resolved Time COVID-19 Comment:Tested + on 09/0109/01/2020 09/05/2020 09/25/2020 12: 31 AM IN SERVICE EDUCATOR documented as of this encounter Care Teams Instrument Lens Generator Relationship Specialty Start Date End Date Juan Laguerre MD [address] [facility] [address] [place] [address] PCP - General Family Medicine 01/02/18 Aubrey Crabtree III, MD [address] [facility] [address] [place] [address] Hematology and Medical Oncology 10/01/18 Jaki Nieves, PhD [address] [facility] [address] [place] [address] Genetic Counseling 11/27/18 documented as of this encounter
--- OUTSIDE RECORDS SUMMARY | 2025-08-09 10:27 | XMS_ITS | Encounter Summary ---
Author Organization [facility] Address [address] [place] [address] Care Team Providers Care Second Rigger Name Role Phone Juan Laguerre MD Primary Care Provider [phone] Bro AWAN MD, Aubrey Lane Unavailable [phone] Jaki Nieves PhD Unavailable [phone] Source Comments In the event that this is information that is protected by federal Confidentiality of Substance User Disorder Patient Records, 42 CFR Part 2 prohibits the unauthorized disclosure of these records.[facility] Encounter Details Date Type Department Care Team (Late Contact Info) Description 06/01/2019 Orders Only NM Transplant Surgery [address] [facility], 19th Floor [address] [place] [address] Renetta Henao Social History Tobacco Use Types [...] [facility], 19th Floor [address] [place] [address] Apt confirmed-EH documented as of this encounter [...] on 09/0109/01/2020 09/05/2020 09/25/2020 12: 31 AM WILDLIFE PROTECTOR documented as of this encounter Care Teams Second Rigger Relationship Specialty Start Date End Date Juan Laguerre MD [address] [phone] PCP - General Family Medicine 01/02/18 Aubrey Crabtree III, MD [address] [address] Hematology and Medical Oncology 10/01/18 Jaki Nieves, PhD [address] [facility] [address] [place] [address] Genetic Counseling 11/27/18 documented as of this encounter
--- OUTSIDE RECORDS SUMMARY | 2025-08-09 10:27 | XMS_ITS | Encounter Summary ---
Author Organization [facility] Address [address] [place] [address] Care Team Providers Care Board Certified Family Physician Name Role Phone Juan Laguerre MD Primary Care Provider [phone] Bro AWAN MD, Aubrey Lane Unavailable [phone] Jaki Nieves PhD Unavailable [phone] Source Comments In the event that this is information that is protected by federal Confidentiality of Substance User Disorder Patient Records, 42 CFR Part 2 prohibits the unauthorized disclosure of these records.[facility] Encounter Details Date Type Department Care Team (Late Contact Info) Description 06/08/2019 Orders Only NM Transplant Surgery [address] [facility], 19th [address] [place] [address] Renetta Henao Social History Tobacco Use Types [...] [facility], [facility] [address] [place] [address] Apt confirmed-EH documented as of this encounter [...] on 09/0109/01/2020 09/05/2020 09/25/2020 12: 31 AM 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 WORKER documented as of this encounter Care Teams Board Certified Family Physician Relationship Specialty Start Date End Date Juan Laguerre MD [address] [facility] [address] [place] [address] PCP - General Family Medicine 01/02/18 Aubrey Crabtree III, MD [address] [facility] [address] [place] [address] Hematology and Medical Oncology 10/01/18 Jaki Nieves, PhD [address] [facility] [address] [place], [place] [address] Genetic Counseling 11/27/18 documented as of this encounter
--- OUTSIDE RECORDS SUMMARY | 2025-08-09 10:27 | XMS_ITS | Encounter Summary ---
Author Organization [facility] Address [address] [place] [address] Care Team Providers Care Tube Mill Operator Name Role Phone Juan Laguerre MD Primary Care Provider [phone] Bro AWAN MD, Aubrey Lane Unavailable [phone] Jaki Nieves PhD Unavailable [phone] Source Comments In the event that this is information that is protected by federal Confidentiality of Substance User Disorder Patient Records, 42 CFR Part 2 prohibits the unauthorized disclosure of these records.[facility] Encounter Details Date Type Department Care Team (Late Contact Info) Description 12/22/2018 Procedure Pass [place] Cardiology [address], [address] [place] [address] Social History Tobacco Use Types Packs/Day Years [...] Upcoming Encounters Date Type Department Care Team ([facility] Contact Info) Description 07/15/2026 1:00 PM CDT Office Visit NM Transplant Surgery [address], [address] [place] [address] Apt confirmed-EH documented as of this encounter Visit Diagnoses Not on filedocumented in this encounter Additional Health Concerns Infection Onset Date Last Indicated Resolved Time COVID-19 Comment:Tested + on 09/0109/01/2020 09/05/2020 09/25/2020 12: 31 AM 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
--- OUTSIDE RECORDS SUMMARY | 2025-08-09 10:27 | XMS_ITS | Encounter Summary ---
Author Organization [facility] Address [address] [place] [address] Care Team Providers Care Slimer Name Role Phone Juan Laguerre MD Primary Care Provider [phone] Bro AWAN MD, Aubrey Lane Unavailable [phone] Jaki Nieves PhD Unavailable [phone] Source Comments In the event that this is information that is protected by federal Confidentiality of Substance User Disorder Patient Records, 42 CFR Part 2 prohibits the unauthorized disclosure of these records.[facility] Reason for Visit * Reason Comments Medications Refill Encounter Details Date Type Department Care Team (Late st Contact Info) Description 11/03/2018 Refill NM Endocrinology [address] [facility] [address] [place], [place] [address] Mabel Vergara, FREE LANCE ARTIST, REFRIGERATOR ASSEMBLER [address] [facility] [address] [place], [place] [address] Medications Refill Social History Tobacco Use Types [...] visit: 09/09/2018 Refills sent to preferred Pharmacy ORATE DEVELOPMENT ASSOCIATE documented in this encounter Plan of Treatment Upcoming Encounters Date Type Department Care Team (Late st Contact Info) Description 07/15/2026 1:00 PM CDT Office Visit NM Transplant Surgery [address] [place], [place] [id number] Apt confirmed-EH documented as of this encounter Visit Diagnoses Not on filedocumented in this encounter Additional Health Concerns Infection Onset Date Last Indicated Resolved Time COVID-19 Comment:Tested + on 09/0109/01/2020 09/05/2020 09/25/2020 12: 31 AM CORPORATE DEVELOPMENT ASSOCIATE documented as of this encounter Care Teams Slimer Relationship Specialty Start Date End Date Juan Laguerre MD [address] [facility] [address] [place] [address] PCP - General Family Medicine 01/02/18 Aubrey Crabtree III, MD [address] [facility] [address] [place] [address] Hematology and Medical Oncology 10/01/18 Jaki Nieves, PhD [address] [facility] [place], [place] [address] Genetic Counseling 11/27/18 documented as of this encounter
--- OUTSIDE RECORDS SUMMARY | 2025-08-09 10:27 | XMS_ITS | Encounter Summary ---
Author Organization [facility] Address [address] [place] [address] Care Team Providers Care Human Resources Trainer Name Role Phone Juan Laguerre MD Primary Care Provider [phone] Bro AWAN MD, Aubrey Lane Unavailable [phone] Jaki Nieves PhD Unavailable [phone] Source Comments In the event that this is information that is protected by federal Confidentiality of Substance User Disorder Patient Records, 42 CFR Part 2 prohibits the unauthorized disclosure of these records.[facility] Encounter Details Date Type Department Care Team (Late Contact Info) Description 05/25/2019 Orders Only NM Transplant Surgery [address] [facility], 19th Floor [address] [place] [address] Renetta Henao Social History Tobacco Use Types [...] Visit NM Transplant Surgery [address] [facility], 19th Floor [address] [place] [address] Apt confirmed-EH documented as of this encounter [...] on 09/0109/01/2020 09/05/2020 09/25/2020 12: 31 AM PUBLIC SERVICE ADMINISTRATOR documented as of this encounter Care Teams Human Resources Trainer Relationship Specialty Start Date End Date Juan Laguerre MD [address] [id number] PCP - General Family Medicine 01/02/18 Aubrey Crabtree III, MD [address] [address] Hematology and Medical Oncology 10/01/18 Jaki Nieves, PhD [address] [facility] [address] [place] [address] Genetic Counseling 11/27/18 documented as of this encounter
--- OUTSIDE RECORDS SUMMARY | 2025-08-09 10:27 | XMS_ITS | Encounter Summary ---
Author Organization [facility] Address [address] [place] [address] Care Team Providers Care Mechanical Car Checker Name Role Phone Juan Laguerre MD Primary Care Provider [phone] Bro AWAN MD, Aubrey Lane Unavailable [phone] Jaki Nieves PhD Unavailable [phone] Source Comments In the event that this is information that is protected by federal Confidentiality of Substance User Disorder Patient Records, 42 CFR Part 2 prohibits the unauthorized disclosure of these records.[facility] Encounter Details Date Type Department Care Team (Late Contact Info) Description 05/25/2019 Orders Only NM Transplant Surgery [address] [facility], 19th Floor [address] [place] [address] Evelin Fontenot RN Social History Tobacco Use [...] Visit NM Transplant Surgery [address] [facility], 19th Floor [address] [place] [address] Apt confirmed-EH documented as of this encounter [...] 09/0109/01/2020 09/05/2020 09/25/2020 12: 31 AM SENIOR MECHANICAL TECHNICIAN documented as of this encounter Care Teams Mechanical Car Checker Relationship Specialty Start Date End Date Juan Laguerre MD 241 [facility] [address] [place] [id number] PCP - General Family Medicine 01/02/18 Aubrey Crabtree III, MD [address] [facility] [address] [place], [place] [address] Hematology and Medical Oncology 10/01/18 Jaki Nieves, PhD [address] [facility] [address] [place] [address] Genetic Counseling 11/27/18 documented as of this encounter
--- OUTSIDE RECORDS SUMMARY | 2025-08-09 10:27 | XMS_ITS | Encounter Summary ---
Author Organization [facility] Address [address] [place] [address] Care Team Providers Care Conciliation Court Judge Name Role Phone Juan Laguerre MD Primary Care Provider [phone] Bro AWAN MD, Aubrey Lane Unavailable [phone] Jaki Nieves PhD Unavailable [phone] Source Comments In the event that this is information that is protected by federal Confidentiality of Substance User Disorder Patient Records, 42 CFR Part 2 prohibits the unauthorized disclosure of these records.[facility] Encounter Details Date Type Department Care Team (Late Contact Info) Description 06/01/2019 Orders Only NM Transplant Surgery [address] [facility], 19th Floor [address] [place] [address] Evelin Fontenot RN Social History Tobacco Use [...] [address], [address] [place] [address] Apt confirmed-EH documented as of this encounter Visit Diagnoses Diagnosis 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 transplant documented in this encounter Additional Health Concerns Infection Onset Date Last Indicated Resolved Time COVID-19 Comment:Tested + on 09/0109/01/2020 09/05/2020 09/25/2020 12: 31 AM PRODUCTION MANUFACTURING WORKER documented as of this encounter Care Teams Conciliation Court Judge Relationship Specialty Start Date End Date Juan Laguerre MD 241 [facility] [address] [place], [place] [address] PCP - General Family Medicine 01/02/18 Aubrey Crabtree III, MD [address] [facility] [address] [place] [address] Hematology and Medical Oncology 10/01/18 Jaki Nieves, PhD [address] [place] [address] Genetic Counseling 11/27/18 documented as of this encounter
--- OUTSIDE RECORDS SUMMARY | 2025-08-09 10:27 | XMS_ITS | Encounter Summary ---
Author Organization [facility] Address [address] [place] [address] Phone Care Team Providers Care Cigar Packer Name Role Phone Juan Laguerre MD Primary Care Provider [phone] Rell Painting MD Unavailable [phone] Bro AWAN MD, James L Unavailable [phone] Jez Denson MD Unavailable Cathleen Gallegos MD Unavailable Vikram Garza MD Unavailable [phone] Treva Edwards MD Unavailable [phone] Sanchez Bills DPM Unavailable [phone] Encounter Details Date Type Department Care Team (Latest Contact Info) Description 08/15/2020 Transcribe Orders [facility] Laboratory Services [address] [place] [address] Cathleen Gallegos MD [address] [address] Kidney replaced by transplant (Primary Dx); Liver [...] 12:45 PM CDT Lab [facility] [address] [address] Lab, [facility] 08/10/2025 1:00 PM CDT Ancillary Procedure [facility] [address] [address] 08/17/2025 9:00 AM CDT Office Visit [facility] [address] [address] Tyler Haile MD [address] [place] [address] Scheduled Orders Name Type Priority Associated Diagnoses Orde r Schedule BK VIRUS BLOOD, [place] [id number] Lab Routine 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 (HCC) every 3 months for 3 Occurrences starting 08/15/2020 until 08/15/2021 documented as of this encounter Results * (ABNORMAL) LIPID PANEL (08/17/2020 1:51 PM CDT) Cholesterol 277(H) 0 - 200 mg/dL [facility] Triglyceride 484(H) 0 - 150 mg/dL [facility] HDL 36 23 - 92 mg/dL [facility] LDL See Comment 0 - 130 mg/dL [facility] [place] Comment: Triglycerides result of >400 mg/dL invalidates the accuracy of calculated LDL. If you would like to order a Direct LDL, please inform the laboratory immediately. Cholesterol /HDL Ratio 7.69(H) 0.00 - 4.44 [facility] Blood 08/17/2020 1:51 PM CDT Narrative [facility] - 08/17/2020 4:17 PM CDT Is the patient fasting? Unknown Cathleen Gallegos MD CHEMISTRY ORDERABLES Final Resul t Performing Organization Address [facility] Co de Phone Number [facility] [place] [address], * (ABNORMAL) PARATHYROID HORMONE PTH INTACT (08/17/2020 1:51 PM CDT) PTH, INTACT 81(H) 15 - 65 PG/ML [facility] Blood 08/17/2020 1:51 PM CDT Narrative [facility] - 08/18/2020 10:08 AM CDT TESTING PERFORMED AT: [] [address], [address], PHONE: [phone], SURGICAL TECHNICIAN: RAEGAN ROSALES, PHD Cathleen Gallegos MD CHEMISTRY ORDERABLES Final Resul t Performing Organization Address City/[facility] Co de Phone Number [facility] * (ABNORMAL) VITAMIN D, 25 HYDROXY TOTAL (08/17/2020 1:51 PM CDT) 25() Vitamin D, Total 29.1(L) 30.0 - 100.0 ng/mL [facility] Comment: The Clinical Guidelines Subcommittee of the Endocrine Society Task Force established the guidelines below for recommended serum 25(OH) vitamin D levels. Other clinical reference citations may show different values. Deficient <20 Insufficient 20 to <30 Sufficient 30 to 100 Upper Safety Limit >100 Blood 08/17/2020 1:51 PM CDT us Cathleen Gallegos MD CHEMISTRY ORDERABLES Final Resul t [facility] [address] [place] [address], documented in this encounter Visit Diagnoses Diagnosis Kidney replaced by transplant- Primary Liver replaced by transplant 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 documented in this encounter Additional Health Concerns Infection Onset Date Last Indicated Resolved Time COVID - 19 09/08/2020 09/08/2020 09/08/2020 7:58 PM BAR HOST COVID - 19 Confirmed 09/08/2020 09/08/2020 020 12:18 AM BAR HOST COVID - 19 09/08/2020 09/08/2020 09/09/2020 8:11 AM BAR HOST Assessment Noted Time PHQ-9 Depression Total Score: 0 06/24/20 20 12:20 PM CDT documented as of this encounter Care Teams Cigar Packer Relationship Specialty Start Date End Date Juan Laguerre MD [address] [place] [address] [place] [address] PCP - General Family Medicine 10/05/16 Rell Painting MD [address] [place] [address] Consulting Physician General Surgery 10/22/18 Aubrey Crabtree III, MD [address] [facility] [address] [place] [address] Medical Oncologist Internal Medicine 11/06/18 Jez Denson MD [address] [facility] [place] [address] Consulting Physician Cardiovascular Disease - Cardiology 01/19/19 Cathleen Gallegos MD [address] [address] Consulting Physician Nephrology 01/19/19 Vikram Garza MD [address] [address] Consulting Physician Cardiovascular Disease - Cardiology 01/19/19 Treva Edwards MD [address] [place] [address] Consulting Physician Internal Medicine 08/31/20 Sanchez Bills DPM [address] [facility] [address] [place] [address] Consulting Physician Podiatry 08/31/20 documented as of this encounter
--- OUTSIDE RECORDS SUMMARY | 2025-08-09 10:27 | XMS_ITS | Encounter Summary ---
Author Organization [facility] Address [address] [place] [address] Care Team Providers Care Long Wall Mining Machine Helper Name Role Phone Jez Denson MD Unavailable Juan Laguerre MD Primary Care Provider [phone] Sima Alex M OD Unavailable [phone] Encounter Details Date Type Department Care Team (Late st Contact Info) Description 08/22/2022 Abstract [facility] [address] [place] [address] Jez Denson MD [address] [place] [address] Social History Tobacco Use Types Packs/Day Years Used Date Smoking Tobacco: Former Smokeless Tobacco: Never Alcohol Use Standard Drinks/Week Comments No 0 (1 standard drink = 0.6 oz pur e alcohol) AUDIT-C Answer Date Recorded Frequency of Alcohol Consumption Never 02/03/2019 Average Number of Drinks Not on file 019 Frequency of Binge Drinking Not on file 12/2018 PHQ-2 Answer Date Recorded PHQ-2 Score - If the patient scores above 3, please move on to questions 3-9 0 05/24/2021 Sex and Gender Information Value Date Recorded Sex Assigned at Not on file Legal Sex Male 8:56 PM CDT Gender Identity Not on file Sexual Orientation Not on file COVID-19 Exposure Response Date Recorded In the last 10 days, have yo u been in contact with someone who was confirmed or suspected to have Coronavirus/COVID-19? No / Unsure 08/01/2022 2:26 PM CDT documented as of this encounter Plan of Treatment Not on file documented as of this encounter Visit Diagnoses Not on filedocumented in this encounter Additional Health Concerns Assessment Noted Time PHQ-9 Depression Total Score: 0 05/24/20 11:39 AM CDT documented as of this encounter Care Teams Long Wall Mining Machine Helper Relationship Specialty Start Date End Date Juan Laguerre MD [address] [facility] [place] [address] PCP - General FAMILY PRACTICE 11/07/18 Jez Denson MD [address] [facility] [address] [employer] Professional CARDIOVASCULAR DISEASE 11/06/18 Alex Gao OD [address] [place] [phone] Windows Desktop Support 08/02/22 documented as of this encounter
--- OUTSIDE RECORDS SUMMARY | 2025-08-09 10:27 | XMS_ITS ---
Author Organization [facility] Address [address] [place] [address] Care Team Providers Care Edging Machine Setter Name Role Phone Juan Laguerre MD Primary Care Provider [phone] Bro AWAN MD, Aubrey Lane Unavailable [phone] Jaki Nieves PhD Unavailable [phone] Transplant Episode Liver Recipient [facility] ([place], [place]) - [facility] Organ Received: Liver Transplanted on 01/02/2008 Marked as Active Follow-up on 01/02/2008 Liver CoordinatorTransplant Coordinator Phone: N/A Fax: N/A Email: N/A [place] Organ Diagnosis Organ Primary Contributory Liver Alcoholic [...] Care Team Name Role Phone Fax Email Executive Sous Chef Liver Coordinator N/A N/A N/A Cathleen Gallegos MD Pediatrics Teacher [phone] Juan Laguerre MD Referring Physician [phone] N/A CARLENE Guthrie Tailman N/A N/A N/A Sam Hector MD client program manager [phone] N/A Onelia Alamo APRN, SWIMMING POOL PLASTERER HELPER [facility] Director Nurse Practitioner [phone] N/A Michelle Madera MD Surgeon [phone] N/A Nuria Pope MD Physician [phone] [email or web address] Referring Radiology Rn [phone] N/A Events Post-Transplant Pre-Transplant Admitted: 01/02/2008 Referred: 12/11/2007 Transplanted: 01/02/2008 Center waitlisted: 12/12/19 08 Discharged: 01/05/2008 Dialysis History Dialysis History Start End Type Comments Center 01/04/2018 Maintenance (Type Unknown) [facility] Dialysis Center Information Center Phone Fax Address [facility] [phone] [facility] [address] [place] [address]
--- OUTSIDE RECORDS SUMMARY | 2025-08-09 10:27 | XMS_ITS | Encounter Summary ---
Author Organization [facility] Address [address] [place] [address] Care Team Providers Care Alternative Energy Technician Name Role Phone Juan Laguerer MD Primary Care Provider [phone] Bro AWAN MD, Aubrey Lane Unavailable [phone] Jaki Nieves PhD Unavailable [phone] Source Comments In the event that this is information that is protected by federal Confidentiality of Substance User Disorder Patient Records, 42 CFR Part 2 prohibits the unauthorized disclosure of these records.[facility] Encounter Details Date Type Department Care Team (Late Contact Info) Description 01/05/2019 Orders Only NM Transplant Surgery [address] [facility], 19th Floor [address] [place] [address] Cara Cook RN Social History Tobacco Use [...] [address], [address] [place] [address] Apt confirmed-EH documented as of this encounter Procedures Procedure Name Priority Date/Time Associated Diagnosis Comments BK VIRUS QUANT VIRAL LOAD, URINE Routine 01/09/2019 5:33 AM MICROWAVE OVEN ASSEMBLER BK VIRUS DNA QUANT PCR, BLOOD Routine 01/09/2019 5:33 AM MICROWAVE OVEN ASSEMBLER CBC (HEMOGRAM) Routine 01/09/2019 5:33 AM MICROWAVE OVEN ASSEMBLER TRANSFERRIN Routine 01/09/2019 5:33 AM MICROWAVE OVEN ASSEMBLER FOLATE Routine 01/09/2019 5:33 AM MICROWAVE OVEN ASSEMBLER VITAMIN B12 Routine 01/09/2019 5:33 AM MICROWAVE OVEN ASSEMBLER PROTEIN/CREAT RATIO, RANDOM URINE Routine 01/09/2019 12:00 AM MICROWAVE OVEN ASSEMBLER URINALYSIS WITH MICROSCOPIC Routine 01/09/2019 12:00 AM MICROWAVE OVEN ASSEMBLER CBC AND DIFFERENTIAL Routine 01/09/2019 12:00 AM MICROWAVE OVEN ASSEMBLER HEMOGLOBIN A1C Routine 01/09/2019 12:00 AM MICROWAVE OVEN ASSEMBLER FERRITIN Routine 01/09/2019 12:00 AM MICROWAVE OVEN ASSEMBLER LIPID PANEL (AMA) W/LDL CALC Routine 01/09/2019 12:00 AM MICROWAVE OVEN ASSEMBLER COMPREHENSIVE METABOLIC PANEL Routine 01/09/2019 12:00 AM MICROWAVE OVEN ASSEMBLER documented in this encounter Results * BK Virus DNA Quant PCR, Blood (01/09/2019 5:33 AM MICROWAVE OVEN ASSEMBLER) BK Virus DNA, Qn PCR - External DET EXTERNAL LAB 01/09/2019 5:33 AM MICROWAVE OVEN ASSEMBLER Narrative EXTERNAL LAB - 01/17/2019 7:25 AM CDT Verified by Monie Siddiqui on 01/17/2019. Tawnya Peck MD IMMUNOLOGY ORDERABL ES Final Result EXTERNAL LAB * BK Virus Quant Viral Load, Urine (01/09/2019 5:33 AM MICROWAVE OVEN ASSEMBLER) BK Quantitation Urine - External 21,100/DE T EXTERNAL LAB 01/09/2019 5:33 AM MICROWAVE OVEN ASSEMBLER Narrative EXTERNAL LAB - 01/17/2019 7:25 AM CDT Verified by Monie Siddiqui on 01/17/2019. Tawnya Peck MD URINE ORDERABLES Fi nal Result Performing Organization Address [facility] de Phone Number EXTERNAL LAB * (ABNORMAL) Vitamin B12 (01/09/2019 5:33 AM MICROWAVE OVEN ASSEMBLER) Vitamin B12 - External 1,195(H) 200 - 900 pg/Ml EXTERNAL LAB 01/09/2019 5:33 AM MICROWAVE OVEN ASSEMBLER Narrative EXTERNAL LAB - 01/15/2019 10:30 AM CDT Verified by Monie Siddiqui on 01/15/2019. Tawnya Peck MD CHEMISTRY ORDERABLE S Final Result Performing Organization Address City/[facility] Co de Phone Number EXTERNAL LAB * Folate (01/09/2019 5:33 AM MICROWAVE OVEN ASSEMBLER) Folate, Serum - External 14.2 5.5 - 17.5 ng/mL EXTERNAL LAB 01/09/2019 5:33 AM MICROWAVE OVEN ASSEMBLER Narrative EXTERNAL LAB - 01/15/2019 10:30 AM CDT Verified by Monie Siddiqui on 01/15/2019. us Tawnya Peck MD CHEMISTRY ORDERABLE S Final Result EXTERNAL LAB * Transferrin (01/09/2019 5:33 AM MICROWAVE OVEN ASSEMBLER) Transferrin - External 300 200 - 360 mg/dL EXTERNAL LAB 01/09/2019 5:33 AM MICROWAVE OVEN ASSEMBLER Narrative EXTERNAL LAB - 01/15/2019 10:30 AM CDT Verified by Monie Siddiqui on 01/15/2019. Tawnya Peck MD CHEMISTRY ORDERABLE S Final Result Performing Organization Address [facility] de Phone Number EXTERNAL LAB * CBC(Hemogram) (01/09/2019 5:33 AM MICROWAVE OVEN ASSEMBLER) Pathologist [facility] White Blood Cells - External 9.75 EXTERNAL LAB Red Blood Cells - External 4.81 EXTERNAL LAB Hemoglobin - External 11.4 EXTERNAL LAB Hematocrit - External 39.1 EXTERNAL LAB MCV - External 81.3 EXTERNAL LAB MCH - External 23.7 EXTERNAL LAB MCHC - External 29.2 EXTERNAL LAB Platelets - External 326 EXTERNAL LAB RDW - External 27.7 EXTERNAL LAB 01/09/2019 5:33 AM MICROWAVE OVEN ASSEMBLER Narrative EXTERNAL LAB - 01/09/2019 11:30 AM MICROWAVE OVEN ASSEMBLER Verified by Galina Raza on 01/09/2019. Noe Keyes MD HEMATOLOGY ORDERABLES Final Result Performing Organization Address [facility] de Phone Number EXTERNAL LAB * CBC with Differential (01/09/2019 12:00 AM MICROWAVE OVEN ASSEMBLER) Pathologist [facility] Neutrophils Abs (cells/uL) - External 6.05 EXTERNAL LAB Neutrophils - External 62 EXTERNAL LAB Lymphocytes - External 24 EXTERNAL LAB Monocytes - External 8 EXTERNAL LAB Eosinophils - External 5 EXTERNAL LAB Basophils - External 1 EXTERNAL LAB Lymph Absolute - External 2.34 EXTERNAL LAB [place] Absolute - External 0.78 EXTERNAL LAB - External 0.49 EXTERNAL LAB Basophil Absolute - External 0.10 EXTERNAL LAB 01/09/2019 Narrative EXTERNAL LAB - 01/27/2019 9:56 AM CDT Verified by Monie Siddiqui on 01/27/2019. Physician Non-Staff HEMATOLOGY ORDERABLES Final Result Performing Organization Address [facility] de Phone Number EXTERNAL LAB * Ferritin (01/09/2019 12:00 AM MICROWAVE OVEN ASSEMBLER) Ferritin - External 90 EXTERNAL LAB 01/09/2019 Narrative EXTERNAL LAB - 01/27/2019 9:56 AM CDT Verified by Monie Siddiqui on 01/27/2019. Physician Non-Staff CHEMISTRY ORDERABLES Final R esult Performing Organization Address [facility] Co de Phone Number EXTERNAL LAB * Lipid Panel(AMA) w/LDL Calculated (01/09/2019 12:00 AM MICROWAVE OVEN ASSEMBLER) Total Cholesterol - External 165 EXTERNAL LAB Triglycerides - External 221 EXTERNAL LAB HDL Cholesterol - External 35 EXTERNAL LAB Cholesterol LDL Direct - External 86 EXTERNAL LAB 01/09/2019 Narrative EXTERNAL LAB - 01/27/2019 9:56 AM CDT Verified by Monie Siddiqui on 01/27/2019. Physician Non-Staff CHEMISTRY ORDERABLES Final R esult Performing Organization Address [facility] Co de Phone Number EXTERNAL LAB * Protein /Creatinine Ratio, Urine (01/09/2019 12:00 AM MICROWAVE OVEN ASSEMBLER) Prot/Creat Ratio - External 0.98 EXTERNAL LAB Urine Creatinine, Random - External 51 EXTERNAL LAB Protein, Urine - External 50.1 EXTERNAL LAB 01/09/2019 Narrative EXTERNAL LAB - 01/27/2019 9:56 AM CDT Verified by Monie Siddiqui on 01/27/2019. Physician Non-Staff URINE ORDERABLES Final Resul t Performing Organization Address [facility] de Phone Number EXTERNAL LAB * Urinalysis with Microscopic (01/09/2019 12:00 AM MICROWAVE OVEN ASSEMBLER) UA Color - External Yellow Yellow EXTERNAL [...] ORDERABLES Final Resul t Performing Organization Address City/[facility]/ZIP Co de Phone Number EXTERNAL LAB * Hemoglobin A1c (01/09/2019 12:00 AM MICROWAVE OVEN ASSEMBLER) Hemoglobin A1C - External 7.6 EXTERNAL LAB 01/09/2019 Narrative EXTERNAL LAB - 01/27/2019 9:56 AM CDT Verified by Monie Siddiqui on 01/27/2019. us Physician Non-Staff CHEMISTRY ORDERABLES Final R esult Performing Organization Address City/[facility] Co de Phone Number EXTERNAL LAB * Comp Metabolic Panel (01/09/2019 12:00 AM MICROWAVE OVEN ASSEMBLER) GFR(Others) - External 51 <60 EXTERNAL LAB [...] ORDERABLES Final R esult Performing Organization Address City/[facility]/ZIP Co de Phone Number EXTERNAL LAB documented in this encounter Visit Diagnoses Diagnosis 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) Liver replaced by transplant Kidney replaced by transplant documented in this encounter Additional Health Concerns Infection Onset Date Last Indicated Resolved Time COVID-19 Comment:Tested + on 09/0109/01/2020 09/05/2020 09/25/2020 12: 31 AM MICROWAVE OVEN ASSEMBLER documented as of this encounter Care Teams Alternative Energy Technician Relationship Specialty Start Date End Date Juan Laguerre MD [address] [facility] [address], [place] [id number] PCP - General Family Medicine 01/02/18 Aubrey Crabtree III, MD [address] [facility] [address], [place] [id number] Hematology and Medical Oncology 10/01/18 Jaki Nieves, PhD [address] [facility] [address] [place] [address] Genetic Counseling 11/27/18 documented as of this encounter
--- OUTSIDE RECORDS SUMMARY | 2025-08-09 10:27 | XMS_ITS | Encounter Summary ---
Author Organization [facility] Address [address] [place] [address] Care Team Providers Care High School Business Teacher Name Role Phone Juan Laguerre MD Primary Care Provider [phone] Bro AWAN MD, Aubrey Lane Unavailable [phone] Jaki Nieves PhD Unavailable [phone] Source Comments In the event that this is information that is protected by federal Confidentiality of Substance User Disorder Patient Records, 42 CFR Part 2 prohibits the unauthorized disclosure of these records.[facility] Encounter Details Date Type Department Care Team (Late st Contact Info) Description 09/29/2018 Orders Only NM Transplant Surgery [address] [facility], [address]th [address] [place], [place] [address] Noe Keyes MD [address] [facility] [address] [address] Social History Tobacco Use Types Packs/Day Years [...] [address] [facility], 19th Floor [address] [place] [address] Apt confirmed-EH documented as of this encounter Visit Diagnoses Diagnosis Kidney transplanted Kidney replaced by transplant documented in this encounter Additional Health Concerns Infection Onset Date Last Indicated Resolved Time COVID-19 Comment:Tested + on 09/0109/01/2020 09/05/2020 09/25/2020 12: 31 AM BRASS MOLDER HELPER documented as of this encounter Care Teams High School Business Teacher Relationship Specialty Start Date End Date Juan Laguerre MD [address] [facility] [address] [place] [address] PCP - General Family Medicine 01/02/18 Aubrey Crabtree III, MD [address] [facility] [address] [place] [address] Hematology and Medical Oncology 10/01/18 Jaki Nieves, PhD [address] [facility] [address] [place] [address] Genetic Counseling 11/27/18 documented as of this encounter
--- OUTSIDE RECORDS SUMMARY | 2025-08-09 10:27 | XMS_ITS | Encounter Summary ---
Author Organization [facility] Address [address] [place] [address] Care Team Providers Care Academic Vice President Name Role Phone Juan Laguerre MD Primary Care Provider [phone] Bro AWAN MD, Aubrey Lane Unavailable [phone] Jaki Nieves PhD Unavailable [phone] Source Comments In the event that this is information that is protected by federal Confidentiality of Substance User Disorder Patient Records, 42 CFR Part 2 prohibits the unauthorized disclosure of these records.[facility] Encounter Details Date Type Department Care Team (Late st Contact Info) Description 10/03/2018 Orders Only NM Transplant Surgery [address] [facility], 19th [address] [place], [place] [address] Makayla Cesar, CERTIFIED MEDICAL RECORDS CODER, COORDINATOR INTEGRATED MARKETING [address] [facility] [address] [place] [address] Social History Tobacco Use Types Packs/Day Years [...] Visit [place] Transplant Surgery [address] [facility], [address] [place] [address] Apt confirmed-EH documented as of this encounter Visit Diagnoses Diagnosis Liver transplant recipient (CMS-HCC) documented in this encounter Additional Health Concerns Infection Onset Date Last Indicated Resolved Time COVID-19 Comment:Tested + on 09/0109/01/2020 09/05/2020 09/25/2020 12: 31 AM SUPERVISOR PIT AND AUXILIARIES documented as of this encounter Care Teams Academic Vice President Relationship Specialty Start Date End Date Juan Laguerre MD [address] [facility] [address] [place] [address] PCP - General Family Medicine 01/02/18 Aubrey Crabtree III, MD [address] [facility] [address] [place] [address] Hematology and Medical Oncology 10/01/18 Jaki Nieves, PhD [address] [facility] [address] [place] [address] Genetic Counseling 11/27/18 documented as of this encounter
--- OUTSIDE RECORDS SUMMARY | 2025-08-09 10:27 | XMS_ITS | Encounter Summary ---
Author Organization [facility] Address [address] [place] [address] Care Team Providers Care Nursing Staffing Coordinator Name Role Phone Juan Laguerre MD Primary Care Provider [phone] Bro AWAN MD, Aubrey Lane Unavailable [phone] Jaki Nieves PhD Unavailable [phone] Source Comments In the event that this is information that is protected by federal Confidentiality of Substance User Disorder Patient Records, 42 CFR Part 2 prohibits the unauthorized disclosure of these records.[facility] Encounter Details Date Type Department Care Team (Late Contact Info) Description 07/20/2019 Orders Only NM Transplant Surgery [address] [facility], 19th [address] [place] [address] Cara Cook RN Social History Tobacco Use [...] [address], [address] [place] [address] Apt confirmed-EH documented as of this encounter Visit Diagnoses Diagnosis 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) Liver replaced by transplant Kidney replaced by transplant documented in this encounter Additional Health Concerns Infection Onset Date Last Indicated Resolved Time COVID-19 Comment:Tested + on 09/0109/01/2020 09/05/2020 09/25/2020 12: 31 AM QUALITY SYSTEMS SPECIALIST documented as of this encounter Care Teams Nursing Staffing Coordinator Relationship Specialty Start Date End Date Juan Laguerre MD [address] [facility] [address] [place], [place] [phone] PCP - General Family Medicine 01/02/18 Aubrey Crabtree III, MD [address] [facility] [address] [place] [address] Hematology and Medical Oncology 10/01/18 Jaki Nieves, PhD [address] [place] [address] Genetic Counseling 11/27/18 documented as of this encounter
--- OUTSIDE RECORDS SUMMARY | 2025-08-09 10:27 | XMS_ITS | Encounter Summary ---
Author Organization [facility] Address [address] [place] [address] Care Team Providers Care Paper Inserter Name Role Phone Juan Laguerre MD Primary Care Provider [phone] Bro AWAN MD, Aubrey Lane Unavailable [phone] Jaki Nieves PhD Unavailable [phone] Source Comments In the event that this is information that is protected by federal Confidentiality of Substance User Disorder Patient Records, 42 CFR Part 2 prohibits the unauthorized disclosure of these records.[facility] Encounter Details Date Type Department Care Team (Late Contact Info) Description 12/25/2018 Procedure Pass NM Cardiology [address], [address]th [place] [address] Social History Tobacco Use Types Packs/Day Years [...] Upcoming Encounters Date Type Department Care Team ([facility] Contact Info) Description 07/15/2026 1:00 PM CDT Office Visit NM Transplant Surgery [address], [address] [place] [address] Apt confirmed-EH documented as of this encounter Visit Diagnoses Not on filedocumented in this encounter Additional Health Concerns Infection Onset Date Last Indicated Resolved Time COVID-19 Comment:Tested + on 09/0109/01/2020 09/05/2020 09/25/2020 12: 31 AM CARTON LINER documented as of this encounter Care Teams Paper Inserter Relationship Specialty Start Date End Date Juan Laguerre MD [address] [id number] PCP - General Family Medicine 01/02/18 Aubrey Crabtree III, MD [address] [address] Hematology and Medical Oncology 10/01/18 Jaki Nieves, PhD [address] [facility] [address] [place] [address] Genetic Counseling 11/27/18 documented as of this encounter
--- OUTSIDE RECORDS SUMMARY | 2025-08-09 10:27 | XMS_ITS | Encounter Summary ---
Author Organization [facility] Address [address] [place] [address] Care Team Providers Care Agricultural Education Instructor Name Role Phone Juan Laguerre MD Primary Care Provider [phone] Bro AWAN MD, Aubrey Lane Unavailable [phone] Jaki Nieves PhD Unavailable [phone] Source Comments In the event that this is information that is protected by federal Confidentiality of Substance User Disorder Patient Records, 42 CFR Part 2 prohibits the unauthorized disclosure of these records.[facility] Encounter Details Date Type Department Care Team (Late st Contact Info) Description 09/30/2018 Orders Only NM Transplant Surgery [address] [facility], 19th [address] [place], [place] [address] Makayla Cesar, CHEMICAL SALES REPRESENTATIVE, SUPERVISOR OF GUIDANCE AND TESTING [address] [facility] [address] [place] [address] Social History Tobacco Use Types Packs/Day Years [...] - [facility], [address] [place] [address] Apt confirmed-EH documented as of this encounter Visit Diagnoses Diagnosis Liver transplant recipient (CMS-HCC) documented in this encounter Additional Health Concerns Infection Onset Date Last Indicated Resolved Time COVID-19 Comment:Tested + on 09/0109/01/2020 09/05/2020 09/25/2020 12: 31 AM ACCOUNT ASSISTANT documented as of this encounter Care Teams Agricultural Education Instructor Relationship Specialty Start Date End Date Juan Laguerre MD [address] [facility] [address] [place] [address] PCP - General Family Medicine 01/02/18 Aubrey Crabtree III, MD [address] [facility] [address] [place] [address] Hematology and Medical Oncology 10/01/18 Jaki Nieves, PhD [address] [facility] [address] [place] [address] Genetic Counseling 11/27/18 documented as of this encounter
--- OUTSIDE RECORDS SUMMARY | 2025-08-09 10:27 | XMS_ITS | Encounter Summary ---
Author Organization [facility] Address [address] [place] [address] Care Team Providers Care Information Specialist Name Role Phone Juan Laguerre MD Primary Care Provider [phone] Bro AWAN MD, Aubrey Lane Unavailable [phone] Jaki Nieves PhD Unavailable [phone] Source Comments In the event that this is information that is protected by federal Confidentiality of Substance User Disorder Patient Records, 42 CFR Part 2 prohibits the unauthorized disclosure of these records.[facility] Reason for Visit * Reason Onset Date Comments Medications Refill 06/30/2019 Encounter Details Date Type Department Care Team (Late st Contact Info) Description 06/30/2019 Refill NM Transplant Surgery [address] [facility], [address] [place] [address] Cathleen Gallegos MD [address] [facility] [address], [place] [address] Medications Refill Social History Tobacco Use Types [...] [address] [facility], [address] [place] [address] Apt confirmed-EH documented as of this encounter Visit Diagnoses Not on filedocumented in this encounter Additional Health Concerns Infection Onset Date Last Indicated Resolved Time COVID-19 Comment:Tested + on 09/0109/01/2020 09/05/2020 09/25/2020 12: 31 AM LANGUAGE SPECIALIST documented as of this encounter Care Teams Information Specialist Relationship Specialty Start Date End Date Juan Laguerre MD [address] [facility] [address] [place] [address] PCP - General Family Medicine 01/02/18 Aubrey Crabtree III, MD [address] [facility] [address] [place] [address] Hematology and Medical Oncology 10/01/18 Jaki Nieves, PhD [address] [facility] [address] [place] [address] Genetic Counseling 11/27/18 documented as of this encounter
--- OUTSIDE RECORDS SUMMARY | 2025-08-09 10:27 | XMS_ITS ---
Author Organization [facility] Address [address] [place] [address] Care Team Providers Care Manufacturing Industrial Engineer Name Role Phone Juan Laguerre MD Primary Care Provider [phone] Bro AWAN MD, Aubrey Lane Unavailable [phone] Jaki Nieves PhD Unavailable [phone] Transplant Episode Kidney Recipient [facility] ([place], [place]) - [facility] Organ Received: Left Kidney Transplanted on 01/02/2008 Marked as Active Follow-up on 01/02/2008 Kidney CoordinatorTransplant Coordinator Phone: N/A Fax: N/A Email: N/A [place] Organ Diagnosis Organ Primary Contributory Kidney Diabetes [...] Care Team Name Role Phone Fax Email Analytics Developer Kidney Coordinator N/A N/A N/A Cathleen Gallegos MD Parts Room Associate [phone] Juan Laguerre MD Referring Physician [phone] N/A Sam Hector MD home sales service professional [phone] N/A Michelle Madera MD Surgeon [phone] N/A Nuria Pope MD Physician [phone] [email or web address] Hernandez Referring Shake Sawyer [phone] N/A Events Post-Transplant Pre-Transplant Admitted: 01/02/2008 Center waitlisted: 8 Transplanted: 01/02/2008 Discharged: 01/05/2008 Dialysis History Dialysis History Start End Type Comments Center 01/04/2018 Maintenance (Type Unknown) [facility] Dialysis Center Information Center Phone Fax Address [facility] [phone] [facility] [place] [address]
--- OUTSIDE RECORDS SUMMARY | 2025-08-09 10:27 | XMS_ITS | Encounter Summary ---
Author Organization [facility] Address [address] [place] [address] Care Team Providers Care Artificial Flowers Starcher Name Role Phone Juan Laguerre MD Primary Care Provider [phone] Bro AWAN MD, Aubrey Lane Unavailable [phone] Jaki Nieves PhD Unavailable [phone] Source Comments In the event that this is information that is protected by federal Confidentiality of Substance User Disorder Patient Records, 42 CFR Part 2 prohibits the unauthorized disclosure of these records.[facility] Encounter Details Date Type Department Care Team (Late Contact Info) Description 06/22/2019 Orders Only NM Transplant Surgery [address] [facility], 19th [address] [place] [address] Cara Cook RN Social History Tobacco Use [...] [address] [place] [address] Apt confirmed-EH documented as of this encounter [...] on 09/0109/01/2020 09/05/2020 09/25/2020 12: 31 AM SEED SALES MANAGER documented as of this encounter Care Teams Artificial Flowers Starcher Relationship Specialty Start Date End Date Juan Laguerre MD [address] [place] [address] [address], [place] [address] PCP - General Family Medicine 01/02/18 Aubrey Crabtree III, MD [address] [place] [address] Hematology and Medical Oncology 10/01/18 Jaki Nieves, PhD [address] [facility] [address] [place] [address] Genetic Counseling 11/27/18 documented as of this encounter
--- OUTSIDE RECORDS SUMMARY | 2025-08-09 10:27 | XMS_ITS | Encounter Summary ---
Author Organization [facility] Address [address] [place] [address] Care Team Providers Care Regional Account Manager Name Role Phone Juan Laguerre MD Primary Care Provider [phone] Bro AWAN MD, Aubrey Lane Unavailable [phone] Jaki Nieves PhD Unavailable [phone] Source Comments In the event that this is information that is protected by federal Confidentiality of Substance User Disorder Patient Records, 42 CFR Part 2 prohibits the unauthorized disclosure of these records.[facility] Encounter Details Date Type Department Care Team (Late st Contact Info) Description 05/11/2019 Orders Only [place] Transplant Surgery [address] [facility]th [address] [place], [place] [address] Cathleen Gallegos MD [address] [facility] [address] [address] Social History Tobacco Use Types Packs/Day Years [...] Office Visit [place] Transplant Surgery [address] [facility], [address] [place] [address] Apt confirmed-EH documented as of this encounter [...] on 09/0109/01/2020 09/05/2020 09/25/2020 12: 31 AM SCHOOL AGE PROGRAM ASSOCIATE documented as of this encounter Care Teams Regional Account Manager Relationship Specialty Start Date End Date Juan Laguerer MD [address] [facility] [address] [place] [address] PCP - General Family Medicine 01/02/18 Aubrey Crabtree III, MD [address] [facility] [address] [place] [address] Hematology and Medical Oncology 10/01/18 Jaki Nieves, PhD [address] [facility] [address] [place] [address] Genetic Counseling 11/27/18 documented as of this encounter
--- OUTSIDE RECORDS SUMMARY | 2025-08-09 10:27 | XMS_ITS | Encounter Summary ---
Author Organization [facility] Address [address] [place] [address] Care Team Providers Care Mineral Surveying Technician Name Role Phone Juan Laguerre MD Primary Care Provider [phone] Bro AWAN MD, Aubrey Lane Unavailable [phone] Jaki Nieves PhD Unavailable [phone] Source Comments In the event that this is information that is protected by federal Confidentiality of Substance User Disorder Patient Records, 42 CFR Part 2 prohibits the unauthorized disclosure of these records.[facility] Encounter Details Date Type Department Care Team (Late st Contact Info) Description 10/14/2018 Orders Only [place] Transplant Surgery [address] [facility], [address]th [address] [place], [place] [address] Makayla Cesar, CHINCHILLA MACHINE OPERATOR, MATERIALS SCIENTIST [address] [facility] [address] [place] [address] Social History Tobacco Use Types Packs/Day Years [...] Office Visit [place] Transplant Surgery [address] [facility], [address]th [address] [place] [address] Apt confirmed-EH documented as of this encounter Visit Diagnoses Diagnosis Liver transplant recipient (CMS-HCC) documented in this encounter Additional Health Concerns Infection Onset Date Last Indicated Resolved Time COVID-19 Comment:Tested + on 09/0109/01/2020 09/05/2020 09/25/2020 12: 31 AM DIRECTOR SEARCH MARKETING STRATEGIES documented as of this encounter Care Teams Mineral Surveying Technician Relationship Specialty Start Date End Date Juan Laguerre MD [address] [facility] [address] [place] [address] PCP - General Family Medicine 01/02/18 Aubrey Crabtree III, MD [address] [facility] [address] [place] [address] Hematology and Medical Oncology 10/01/18 Jaki Nieves, PhD [address] [facility] [address] [place] [address] Genetic Counseling 11/27/18 documented as of this encounter
--- OUTSIDE RECORDS SUMMARY | 2025-08-09 10:27 | XMS_ITS | Encounter Summary ---
Author Organization [facility] Address [address] [place] [address] Care Team Providers Care Filing Clerk Name Role Phone Juan Laguerre MD Primary Care Provider [phone] Bro AWAN MD, Aubrey Lane Unavailable [phone] Jaki Nieves PhD Unavailable [phone] Source Comments In the event that this is information that is protected by federal Confidentiality of Substance User Disorder Patient Records, 42 CFR Part 2 prohibits the unauthorized disclosure of these records.[facility] Encounter Details Date Type Department Care Team (Late st Contact Info) Description 10/13/2018 Orders Only [place] Transplant Surgery [address] [facility], [address]th [address] [place], [place] [address] Noe Keyes MD [address] [facility] [address] [address] Social History Tobacco Use Types Packs/Day Years [...] Office Visit [place] Transplant Surgery [address] [facility], [address]th [address] [place] [address] Apt confirmed-EH documented as of this encounter Visit Diagnoses Diagnosis Kidney transplanted Kidney replaced by transplant documented in this encounter Additional Health Concerns Infection Onset Date Last Indicated Resolved Time COVID-19 Comment:Tested + on 09/0109/01/2020 09/05/2020 09/25/2020 12: 31 AM COLLABORATIVE TEACHER documented as of this encounter Care Teams Filing Clerk Relationship Specialty Start Date End Date Juan Laguerre MD [address] [facility] [address] [place] [address] PCP - General Family Medicine 01/02/18 Aubrey Crabtree III, MD [address] [facility] [address] [place] [address] Hematology and Medical Oncology 10/01/18 Jaki Nieves, PhD [address] [facility] [address] [place] [address] Genetic Counseling 11/27/18 documented as of this encounter
--- OUTSIDE RECORDS SUMMARY | 2025-08-09 10:27 | XMS_ITS | Encounter Summary ---
Author Organization [facility] Address [address] [place] [address] Care Team Providers Care Time Study Analyst Name Role Phone Juan Laguerre MD Primary Care Provider [phone] Bro AWAN MD, Aubrey Lane Unavailable [phone] Jaki Nieves PhD Unavailable [phone] Source Comments In the event that this is information that is protected by federal Confidentiality of Substance User Disorder Patient Records, 42 CFR Part 2 prohibits the unauthorized disclosure of these records.[facility] Encounter Details Date Type Department Care Team (Late Contact Info) Description 05/18/2019 Orders Only NM Transplant Surgery [address] [facility], 19th Floor [address] [place] [address] Renetta Henao Social History Tobacco Use Types [...] Medicine [facility], 19th Floor [address] [place] [address] Apt confirmed-EH documented as of this encounter [...] on 09/0109/01/2020 09/05/2020 09/25/2020 12: 31 AM DRUM STOCK CLERK documented as of this encounter Care Teams Time Study Analyst Relationship Specialty Start Date End Date Juan Laguerre MD [address] [id number] PCP - General Family Medicine 01/02/18 Aubrey Crabtree III, MD [address] [address] Hematology and Medical Oncology 10/01/18 Jaki Nieves, PhD [address] [facility] [address] [place] [address] Genetic Counseling 11/27/18 documented as of this encounter
--- OUTSIDE RECORDS SUMMARY | 2025-08-09 10:27 | XMS_ITS | Encounter Summary ---
Author Organization [facility] Address [address] [place] [address] Care Team Providers Care Kier Hand Name Role Phone Juan Laguerre MD Primary Care Provider [phone] Bro AWAN MD, Aubrey Lane Unavailable [phone] Jaki Nieves PhD Unavailable [phone] Source Comments In the event that this is information that is protected by federal Confidentiality of Substance User Disorder Patient Records, 42 CFR Part 2 prohibits the unauthorized disclosure of these records.[facility] Encounter Details Date Type Department Care Team (Late st Contact Info) Description 09/22/2018 Orders Only [place] Transplant Surgery [address] [facility], 19th Floor [address] [place], [place] [address] Noe Keyes MD [address] [facility] [address] [address] Social History Tobacco Use Types Packs/Day Years [...] Office Visit [place] Transplant Surgery [address] [facility], [address]th [address] [place] [address] Apt confirmed-EH documented as of this encounter Visit Diagnoses Diagnosis Kidney transplanted Kidney replaced by transplant documented in this encounter Additional Health Concerns Infection Onset Date Last Indicated Resolved Time COVID-19 Comment:Tested + on 09/0109/01/2020 09/05/2020 09/25/2020 12: 31 AM ARCADE GAMES MECHANIC documented as of this encounter Care Teams Kier Hand Relationship Specialty Start Date End Date Juan Laguerre MD [address] [facility] [address] [place] [address] PCP - General Family Medicine 01/02/18 Aubrey Crabtree III, MD [address] [facility] [address] [place] [address] Hematology and Medical Oncology 10/01/18 Jaki Nieves, PhD [address] [facility] [address] [place] [address] Genetic Counseling 11/27/18 documented as of this encounter
--- OUTSIDE RECORDS SUMMARY | 2025-08-09 10:27 | XMS_ITS | Encounter Summary ---
Author Organization [facility] Address [address] [place] [address] Care Team Providers Care Bullet Lubricant Mixer Name Role Phone Juan Laguerre MD Primary Care Provider [phone] Bro AWAN MD, Aubrey Lane Unavailable [phone] Jaki Nieves PhD Unavailable [phone] Source Comments In the event that this is information that is protected by federal Confidentiality of Substance User Disorder Patient Records, 42 CFR Part 2 prohibits the unauthorized disclosure of these records.[facility] Encounter Details Date Type Department Care Team (Late st Contact Info) Description 10/06/2018 Orders Only NM Transplant Surgery [address] [facility], 19th Floor [address] [place], [place] [address] Noe Keyes MD [address] [facility] [address] [address] Social History Tobacco Use Types Packs/Day Years [...] Office Visit [place] Transplant Surgery [address] [facility], 19th [address] [place] [address] Apt confirmed-EH documented as of this encounter Visit Diagnoses Diagnosis Kidney transplanted Kidney replaced by transplant documented in this encounter Additional Health Concerns Infection Onset Date Last Indicated Resolved Time COVID-19 Comment:Tested + on 09/0109/01/2020 09/05/2020 09/25/2020 12: 31 AM STEAM SHOVEL OPERATING ENGINEER documented as of this encounter Care Teams Bullet Lubricant Mixer Relationship Specialty Start Date End Date Juan Laguerre MD [address] [facility] [address] [place] [address] PCP - General Family Medicine 01/02/18 Aubrey Crabtree III, MD [address] [facility] [address] [place] [address] Hematology and Medical Oncology 10/01/18 Jaki Nieves, PhD [address] [facility] [address] [place] [address] Genetic Counseling 11/27/18 documented as of this encounter
--- OUTSIDE RECORDS SUMMARY | 2025-08-09 10:27 | XMS_ITS | Encounter Summary ---
Author Organization [facility] Address [address] [place] [address] Care Team Providers Care White Sugar Boiler Name Role Phone Juan Laguerre MD Primary Care Provider [phone] Bro AWAN MD, Aubrey Lane Unavailable [phone] Jaki iNeves PhD Unavailable [phone] Source Comments In the event that this is information that is protected by federal Confidentiality of Substance User Disorder Patient Records, 42 CFR Part 2 prohibits the unauthorized disclosure of these records.[facility] Reason for Visit * Reason Onset Date Comments Medications Refill 05/12/2019 Encounter Details Date Type Department Care Team (Late st Contact Info) Description 05/12/2019 Refill NM Transplant Surgery [address] [facility], 19th Floor [address] [place] [address] Edwin Del Toro MD [address] [facility] [address], [place] [address] Medications Refill Social History Tobacco Use Types [facility], 19[facility] Floor [address] [place] [address] Apt confirmed-EH documented as of this encounter Visit Diagnoses Diagnosis Kidney replaced by transplant- Primary 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) Liver replaced by transplant documented in this encounter Additional Health Concerns Infection Onset Date Last Indicated Resolved Time COVID-19 Comment:Tested + on 09/0109/01/2020 09/05/2020 09/25/2020 12: 31 AM EDUCATION SPEC documented as of this encounter Care Teams White Sugar Boiler Relationship Specialty Start Date End Date Juan Laguerre MD [address] [facility] [address] [place] [address] PCP - General Family Medicine 01/02/18 Aubrey Crabtree III, MD [address] [facility] [address] [place] [address] Hematology and Medical Oncology 10/01/18 Jaki Nieves, PhD [address] [facility] [address] [place] [address] Genetic Counseling 11/27/18 documented as of this encounter
--- OUTSIDE RECORDS SUMMARY | 2025-08-09 10:27 | XMS_ITS | Encounter Summary ---
Author Organization [facility] Address [address] [place] [address] Care Team Providers Care Diamond Driller Helper Name Role Phone Juan Laguerre MD Primary Care Provider [phone] Bro AWAN MD, Aubrey Lane Unavailable [phone] Jaki Nieves PhD Unavailable [phone] Source Comments In the event that this is information that is protected by federal Confidentiality of Substance User Disorder Patient Records, 42 CFR Part 2 prohibits the unauthorized disclosure of these records.[facility] Encounter Details Date Type Department Care Team (Late st Contact Info) Description 09/26/2018 Orders Only [place] Transplant Surgery [address] [facility], 19th [address] [place], [place] [address] Makayla Cesar, SOFTWARE TEST ANALYST, VISITING PROFESSOR [address] [facility] [address] [place] [address] Social History Tobacco Use Types Packs/Day Years [...] [facility], 19th Floor [address] [place] [address] Apt confirmed-EH documented as of this encounter Visit Diagnoses Diagnosis Liver transplant recipient (CMS-HCC) documented in this encounter Additional Health Concerns Infection Onset Date Last Indicated Resolved Time COVID-19 Comment:Tested + on 09/0109/01/2020 09/05/2020 09/25/2020 12: 31 AM MEDICAL ASSISTANT SECRETARY documented as of this encounter Care Teams Diamond Driller Helper Relationship Specialty Start Date End Date Juan Laguerre MD [address] [facility] [address] [place] [address] PCP - General Family Medicine 01/02/18 Aubrey Crabtree III, MD [address] [facility] [address] [place] [address] Hematology and Medical Oncology 10/01/18 Jaki Nieves, PhD [address] [facility] [address] [place] [address] Genetic Counseling 11/27/18 documented as of this encounter
--- OUTSIDE RECORDS SUMMARY | 2025-08-09 10:27 | XMS_ITS | Encounter Summary ---
Author Organization [facility] Address [address] [place] [address] Care Team Providers Care Spinning Mule Operator Name Role Phone Juan Laguerre MD Primary Care Provider [phone] Bro AWAN MD, Aubrey Lane Unavailable [phone] Jaki Nieves PhD Unavailable [phone] Source Comments In the event that this is information that is protected by federal Confidentiality of Substance User Disorder Patient Records, 42 CFR Part 2 prohibits the unauthorized disclosure of these records.[facility] Encounter Details Date Type Department Care Team (Late Contact Info) Description 07/06/2019 Orders Only NM Transplant Surgery [address] [facility], 19th Floor [address] [place] [address] Renetta Henao Social History Tobacco Use Types [...] St, [address]th [address] [place] [address] Apt confirmed-EH documented as of this encounter [...] 2.75 1.30 - 2.90 10(3)/mcL EXTERNAL LAB [facility] Absolute - External 1.12(H) 0.10 - 0.80 [...] LAB Monocytes - External 10.2 EXTERNAL LAB [facility] - External 0.9(L) 4.1 - 12.1 [...] on 09/0109/01/2020 09/05/2020 09/25/2020 12: 31 AM ELECTRICAL APPLIANCE SERVICER documented as of this encounter Care Teams Spinning Mule Operator Relationship Specialty Start Date End Date Juan Laguerre MD [address] [facility] [address] [place] [address] PCP - General Family Medicine 01/02/18 Aubrey Crabtree III, MD [address] [facility] [address] [place] [address] Hematology and Medical Oncology 10/01/18 Jaki Nieves, PhD [address] [facility] [address] [place] [address] Genetic Counseling 11/27/18 documented as of this encounter
--- OUTSIDE RECORDS SUMMARY | 2025-08-09 10:27 | XMS_ITS | Encounter Summary ---
Author Organization [facility] Address [address] [place] [address] Care Team Providers Care Neurophysiologist Name Role Phone Juan Laguerre MD Primary Care Provider [phone] Bro AWAN MD, Aubrey Lane Unavailable [phone] Jaki Nieves PhD Unavailable [phone] Source Comments In the event that this is information that is protected by federal Confidentiality of Substance User Disorder Patient Records, 42 CFR Part 2 prohibits the unauthorized disclosure of these records.[facility] Encounter Details Date Type Department Care Team (Late Contact Info) Description 12/22/2018 Procedure Pass [place] Cardiology [address], [address] [place] [address] Social History Tobacco Use Types Packs/Day Years [...] Upcoming Encounters Date Type Department Care Team ([facility] Contact Info) Description 07/15/2026 1:00 PM CDT Office Visit [place] Transplant Surgery [address], [address] [place] [address] Apt confirmed-EH documented as of this encounter Visit Diagnoses Not on filedocumented in this encounter Additional Health Concerns Infection Onset Date Last Indicated Resolved Time COVID-19 Comment:Tested + on 09/0109/01/2020 09/05/2020 09/25/2020 12: 31 AM ACROBATIC DANCER documented as of this encounter Care Teams Neurophysiologist Relationship Specialty Start Date End Date Juan Laguerre MD [address] [id number] PCP - General Family Medicine 01/02/18 Aubrey Crabtree III, MD [address] [address] Hematology and Medical Oncology 10/01/18 Jaki Nieves, PhD [address] [facility] [address] [place] [address] Genetic Counseling 11/27/18 documented as of this encounter
--- OUTSIDE RECORDS SUMMARY | 2025-08-09 10:27 | XMS_ITS | Encounter Summary ---
Author Organization [facility] Address [address] [place] [address] Care Team Providers Care Chemist Enzymes Name Role Phone Juan Laguerre MD Primary Care Provider [phone] Bro AWNA MD, Aubrey Lane Unavailable [phone] Jaki Nieves PhD Unavailable [phone] Source Comments In the event that this is information that is protected by federal Confidentiality of Substance User Disorder Patient Records, 42 CFR Part 2 prohibits the unauthorized disclosure of these records.[facility] Encounter Details Date Type Department Care Team (Late Contact Info) Description 05/18/2019 Orders Only NM Transplant Surgery [address] [facility], 19th Floor [address] [place] [address] Evelin Fontenot RN Social History Tobacco Use [...] [address] [facility] [address], 19[address] [place] [address] Apt confirmed-EH documented as of this encounter [...] on 09/0109/01/2020 09/05/2020 09/25/2020 12: 31 AM COMPUTER TRAINER documented as of this encounter Care Teams Chemist Enzymes Relationship Specialty Start Date End Date Juan Laguerre MD [address] [facility] [address] [place] [address] PCP - General Family Medicine 01/02/18 Aubrey Crabtree III, MD [address] [facility] [address] [place], [place] [address] Hematology and Medical Oncology 10/01/18 Jaki Nieves, PhD [address] [facility] [address] [place] [address] Genetic Counseling 11/27/18 documented as of this encounter
--- OUTSIDE RECORDS SUMMARY | 2025-08-09 10:27 | XMS_ITS | Encounter Summary ---
Author Organization [facility] Address [address] [place] [address] Care Team Providers Care Bearing Ring Assembler Name Role Phone Juan Laguerre MD Primary Care Provider [phone] Bro AWAN MD, Aubrey Lane Unavailable [phone] Jaki Nieves PhD Unavailable [phone] Source Comments In the event that this is information that is protected by federal Confidentiality of Substance User Disorder Patient Records, 42 CFR Part 2 prohibits the unauthorized disclosure of these records.[facility] Encounter Details Date Type Department Care Team (Late st Contact Info) Description 11/03/2018 Orders Only [place] Transplant Surgery [address] [facility], 19th Floor [address] [place], [place] [address] Noe Keyes MD [address] [facility] [address] [address] Social History Tobacco Use Types Packs/Day Years [...] [facility], 19th Floor [address] [place] [address] Apt confirmed-EH documented as of this encounter Procedures Procedure Name Priority Date/Time Associated Diagnosis Comments PROTEIN/CREAT RATIO, RANDOM URINE Routine 10/31/2018 5:58 AM MERCHANDISE HANDLER URINALYSIS WITH MICROSCOPIC Routine 10/31/2018 5:58 AM MERCHANDISE HANDLER CBC AND DIFFERENTIAL Routine 10/31/2018 5:58 AM MERCHANDISE HANDLER PHOSPHORUS LEVEL Routine 10/31/2018 5:58 AM MERCHANDISE HANDLER COMPREHENSIVE METABOLIC PANEL Routine 10/31/2018 5:58 AM MERCHANDISE HANDLER documented in this encounter Results * Protein /Creatinine Ratio, Urine (10/31/2018 5:58 AM MERCHANDISE HANDLER) Urine Creatinine, Random - External 81 EXTERNAL LAB Protein, Urine - External 68.5 EXTERNAL LAB Prot/Creat Ratio - External 0.85 EXTERNAL LAB 10/31/2018 5:58 AM MERCHANDISE HANDLER Narrative EXTERNAL LAB - 11/01/2018 6:18 AM MERCHANDISE HANDLER Verified by Monie Siddiqui on 11/01/2018. us Noe Keyes MD URINE ORDERABLES Final Resul t EXTERNAL LAB * Phosphorus Level (10/31/2018 5:58 AM MERCHANDISE HANDLER) Phosphorous - External 2.7 EXTERNAL LAB 10/31/2018 5:58 AM MERCHANDISE HANDLER Narrative EXTERNAL LAB - 11/01/2018 6:18 AM MERCHANDISE HANDLER Verified by Monie Siddiqui on 11/01/2018. Noe Keyes MD CHEMISTRY ORDERABLES Final R esult EXTERNAL LAB * (ABNORMAL) Urinalysis with Microscopic (10/31/2018 5:58 AM MERCHANDISE HANDLER) UA Bilirubin - External NEG EXTERNAL LAB Specific [place], Urine - External 1.013 EXTERNAL LAB UA [...] External <2.0 EXTERNAL LAB 10/31/2018 5:58 AM MERCHANDISE HANDLER Narrative EXTERNAL LAB - 11/01/2018 6:18 AM MERCHANDISE HANDLER Verified by Monie Siddiqui on 11/01/2018. Noe Keyes MD URINE ORDERABLES Final Resul t Performing Organization Address City/[facility]/ZIP Co de Phone Number EXTERNAL LAB * (ABNORMAL) Comp Metabolic Panel (10/31/2018 5:58 AM MERCHANDISE HANDLER) Sodium - External 138 EXTERNAL LAB Potassium [...] External 50 EXTERNAL LAB 10/31/2018 5:58 AM MERCHANDISE HANDLER Narrative EXTERNAL LAB - 11/01/2018 6:18 AM MERCHANDISE HANDLER Verified by Monie Siddiqui on 11/01/2018. Noe Keyes MD CHEMISTRY ORDERABLES Final R esult EXTERNAL LAB * (ABNORMAL) CBC with Differential (10/31/2018 5:58 AM MERCHANDISE HANDLER) Red Blood Cells - External 4.34 EXTERNAL [...] LAB Basophils - External 1.5 EXTERNAL LAB [place] Absolute - External 0.33 EXTERNAL LAB Basophil Absolute - External 0.08 EXTERNAL LAB 10/31/2018 5:58 AM MERCHANDISE HANDLER Narrative EXTERNAL LAB - 11/01/2018 6:18 AM MERCHANDISE HANDLER Verified by Monie Siddiqui on 11/01/2018. us Noe Keyes MD HEMATOLOGY ORDERABLES Final Result Performing Organization Address [facility] Co de Phone Number EXTERNAL LAB documented in this encounter Visit Diagnoses Diagnosis Kidney transplanted Kidney replaced by transplant documented in this encounter Additional Health Concerns Infection Onset Date Last Indicated Resolved Time COVID-19 Comment:Tested + on 09/0109/01/2020 09/05/2020 09/25/2020 12: 31 AM MERCHANDISE HANDLER documented as of this encounter Care Teams Bearing Ring Assembler Relationship Specialty Start Date End Date Juan Laguerre MD [address] [facility] [address], [place] [address] PCP - General Family Medicine 01/02/18 Aubrey Crabtree III, MD [address] [facility] [address], [place] [address] Hematology and Medical Oncology 10/01/18 Jaki Nieves, PhD [address] [facility] [address] [place] [address] Genetic Counseling 11/27/18 documented as of this encounter
--- OUTSIDE RECORDS SUMMARY | 2025-08-09 10:27 | XMS_ITS | Encounter Summary ---
Author Organization [facility] Address [address] [place] [address] Care Team Providers Care Well Service Derrick Worker Name Role Phone Juan Laguerre MD Primary Care Provider [phone] Bro AWAN MD, Aubrey Lane Unavailable [phone] Jaki Nieves PhD Unavailable [phone] Source Comments In the event that this is information that is protected by federal Confidentiality of Substance User Disorder Patient Records, 42 CFR Part 2 prohibits the unauthorized disclosure of these records.[facility] Encounter Details Date Type Department Care Team (Late Contact Info) Description 11/05/2018 Procedure [place] Radiology [address], [address]th [place] [address] Social History Tobacco Use Types Packs/Day Years [...] [facility], [facility] Floor [address] [place] [address] Apt confirmed-EH documented as of this encounter Visit Diagnoses Not on filedocumented in this encounter Additional Health Concerns Infection Onset Date Last Indicated Resolved Time COVID-19 Comment:Tested + on 09/0109/01/2020 09/05/2020 09/25/2020 12: 31 AM SOLAR PROJECT COORDINATION SPECIALIST documented as of this encounter Care Teams Well Service Derrick Worker Relationship Specialty Start Date End Date Juan Laguerre MD [address] [id number] PCP - General Family Medicine 01/02/18 Aubrey Crabtree III, MD [address] [address] Hematology and Medical Oncology 10/01/18 Jaki Nieves, PhD [address] [facility] [address] [place] [address] Genetic Counseling 11/27/18 documented as of this encounter
--- OUTSIDE RECORDS SUMMARY | 2025-08-09 10:27 | XMS_ITS | Encounter Summary ---
Author Organization [facility] Address [address] [place] [address] Care Team Providers Care Undercutter Name Role Phone Juan Laguerre MD Primary Care Provider [phone] Bro AWAN MD, Aubrey Lane Unavailable [phone] Jaki Nieves PhD Unavailable [phone] Source Comments In the event that this is information that is protected by federal Confidentiality of Substance User Disorder Patient Records, 42 CFR Part 2 prohibits the unauthorized disclosure of these records.[facility] Encounter Details Date Type Department Care Team (Late Contact Info) Description 05/25/2019 Orders Only [place] Transplant Surgery [address] [facility], 19th Floor [address] [place] [address] Cara Cook RN Social History Tobacco Use [...] [address], [address] [place] [address] Apt confirmed-EH documented as of this encounter Visit Diagnoses Diagnosis 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) Liver replaced by transplant Kidney replaced by transplant documented in this encounter Additional Health Concerns Infection Onset Date Last Indicated Resolved Time COVID-19 Comment:Tested + on 09/0109/01/2020 09/05/2020 09/25/2020 12: 31 AM CAMPUS RECEPTIONIST documented as of this encounter Care Teams Undercutter Relationship Specialty Start Date End Date Juan Laguerre MD [address] [facility] [address] [place], [place] [id number] PCP - General Family Medicine 01/02/18 Aubrey Crabtree III, MD [address] [facility] [address] [place] [address] Hematology and Medical Oncology 10/01/18 Jaki Nieves, PhD [address] [place] [address] Genetic Counseling 11/27/18 documented as of this encounter
--- OUTSIDE RECORDS SUMMARY | 2025-08-09 10:27 | XMS_ITS | Clinical Summary ---
Author Organization [facility] Address [address] [place] [address] Care Team Providers Care Emergency Service Restorer Name Role Phone Jez Denson MD Unavailable Juan Laguerre MD Primary Care Provider [phone] Alex Gao OD Unavailable [phone] Allergies Active Allergy Reactions Criticality Noted Date Comments Codeine Other (see comment),Unknown Low 04/24/20 20 Can't sleep Medications Pregabalin 300 MG Cap Take 1 tablet by mouth 2 (two) times a day. Active pantoprazole EC 40 MG tablet Take 1 tablet (40 mg total) by mouth daily. Active duloxetine 60 MG capsule Take 1 capsule (60 mg total) by mouth nightly. Active mycophenolate EC 180 MG tabletIndications: 360mg 1 po BID Take 1 tablet (180 mg total) by mouth. 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 Act chiquis magnesium oxide 400 (241.3 Mg) MG tablet Take 1 tablet (400 mg total) by mouth daily. Active Glucose Blood (MyAcademicProgramTOUCH ULTRA) test stripIndications:T ype 2 diabetes mellitus with hyperglycemia, with long-term current use of insulin ([facility]) Test 3 times daily. 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 ([facility]) INJECT 35 UNITS SUBCUTANEOUSLY NIGHTLY AT BEDTIME 30 mL 3 04/08/20 22 Active Additional Information Patient taking differently: 45 Units Subcutaneous Daily, Reported on 06/03/2023 HUMALOG KWIKPEN 100 UNIT/ML injection (PEN)Indications:D iabetes mellitus secondary to pancreatectomy ([facility] H[facility]/HCC),Type 2 diabetes mellitus with hyperglycemia, with long-term current use of insulin ([facility]) INJECT 3 TIMES A DAY BEFOREMEALS, UP TO 50 UNITS DAILYAS DIRECTED 45 mL 3 04/08/20 22 Active Continuous Blood Gluc Sensor (FREESTYLE LILLIE 2 SENSOR) Misc see administration instructions. 05/11/20 22 Active everolimus (ZORTRESS) 0.5 MG tablet Take 3 tablets by mouth 2 (two) times daily. 04/11/20 22 Active GVOKE HYPOPEN 2-PACK 0.5 MG/0.1ML Solution Auto-injector 04/28/20 22 Active GLUCAGEN HYPOKIT 1 MG Recon Soln injection 04/24/20 22 Active sulfamethoxazole-t rimethoprim (BACTRIM) 400-80 MG tablet Take 1 tablet by mouth every 12 (twelve) hours. MWF Active albuterol sulfate HFA 108 (90 Base) MCG/ACT inhaler TAKE 1 OR 2 PUFFS INHALATION EVERY 4 HOURS NEEDED FOR SHORTNESS OF BREATH/WHEEZING 04/15/20 23 Active FLOVENT HFA 44 MCG/ACT inhaler INHALE 1 PUFF TWICE DAILY, RINSE MOUTH AFTER USE 04/29/20 23 Active BETIMOL 0.5 % ophthalmic solution instill 1 drop into right eye twice daily 05/12/20 23 Active Cyanocobalamin (VITAMIN B 12 OR) Take 250 mg by mouth daily. Active atorvastatin (LIPITOR) 40 MG tablet Take 1 tablet (40 mg total) by mouth daily. 04/22/20 24 Active empagliflozin (JARDIANCE) 25 MG tablet Take 1 tablet (25 mg total) by mouth daily. 06/10/20 24 Active apixaban (ELIQUIS) 5 MG tabletIndications: Retinal artery occlusion,Vision loss of right eye,Paroxysmal atrial fibrillation ([facility]) Take 1 tablet (5 mg total) by mouth 2 (two) times daily. 180 tablet 3 07/20/20 24 Active metoprolol succinate ER (TOPROL-XL) 50 MG 24 hr tablet Take 1.5 tablets (75 mg total) by mouth daily. 135 tablet 3 07/20/20 24 Active Active Problems Problem Noted Date Diagnosed Date Type 2 diabetes mellitus wit h hyperglycemia, with long-term current use of insulin ([facility]) 07/28/2020 Mixed hyperlipidemia 04/22/2020 Status post transcatheter ao rtic valve replacement (TAVR) using bioprosthesis 12/31/2018 Thrombocytosis after splenectomy 11/27/2018 Overview (04/22/2020): Last Assessment & Plan: Likely has thrombocytosis due to splenectomy with exaggerated response to stressors. Continue aspirin. Recommended to discuss with Medical Oncologist re any w/up and/or treatment. Paroxysmal atrial fibrillation ([facility]) 11/07/2018 Overview (04/22/2020): Last Assessment & Plan: Cardiology management. Rate control may not be effective in the setting of hypotension. On systemic anticoagulation. Immunocompromised patient ([facility]) 11/02/2018 History of partial pancreatectomy 09/08/2018 Encounter for monitoring immunomodulating therap y 08/06/2018 Overview (03/03/2021): Last Assessment & Plan: Immunosuppressive drug therapy requiring intensive monitoring for toxicity, rejection, opportunistic infection, and malignancies. Frequent dose adjustments based on laboratory monitoring due to narrow therapeutic range. Metabolic complications. Complicated by pancreatic adenocarcinoma. Continue everolimus and mycophenolate sodium. Monitor everolimus (goal 6-10 ng/mL) and MPA (goal 2-4 mcg/mL) trough levels. Peripheral neuropathy 01/27/2018 Hypertension, essential 01/27/2018 Overview (04/22/2020): Last Assessment & Plan: At goal < 130/80, continue present regimen. Kidney transplant recipient ([facility]) 01/02/2008 Overview (04/22/2020): Last Assessment & Plan: SLK. With chronic kidney disease stage 3. Now with acute kidney failure, in evaluation. Monitor serum creatinine, proteinuria, and BK viral load screening. Liver replaced by transplant ([facility]) 0 01/02/2008 Overview (10/26/2020): Last Assessment & Plan: Normal liver function. Spoke to Dr Gallegos: will keep same immunosuppression. Next year colonoscopy. Blood work per protocol. Needs statin , local physician to prescribe. Rosuvastatin/Atorvastatin. 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 ([facility]) 12/10/2007 Resolved Problems Problem Noted Date Diagnosed Date Resolved Date Pneumonia due to COVID-19 virus 09/09/2020 10/29/2020 COVID-19 virus infection 09/08/2020 Hypoglycemia associated with diabetes ([facility]) 04/24/2020 07/28/2020 Diabetic ulcer of toe of rig ht foot associated with diabetes mellitus due to underlying condition ([facility]) 04/23/2020 1 12/30/2019 S/P foot surgery 04/20/2020 10/29/2020 Nonrheumatic aortic valve stenosis 12/05/2018 04/24/2020 Overview (04/22/2020): Last Assessment & Plan: Cardiology management. Overview: Added automatically from request for surgery [id number] Adenocarcinoma of pancreas ([facility]) 8 07/28/2020 Overview (04/22/2020): Last Assessment & Plan: In remission. Completed primary chemotherapy course. Scheduled for 3-month follow up imaging in the coming weeks. Vitreous hemorrhage of right eye 01/27/2018 04/24/2020 Encounters Date Type Department Care Team Description 08/03/2025 Telephone [facility] [address] [place] [address] Jez Denson MD Medication (? About med) 05/12/2025 [facility]phone [facility] [address] [place] [address] Jez Denson MD Called To Cancel Office Appt. ([place]oved out of state) from Last 3 Months Immunizations Immunization Administration Dates Next Due Flublok (Quadrivalent) 08/04/2020 Fluzone 6 Months+ Quad (0.5 mL Prefilled Syringe) 08/20/2019 Influenza (Generic) 07/25/2016, 4,09/10/2013,09/07 Influenza Adult (Generic) 09/15/2018,08/02/2015 Meningococcal (Menactra) 09/15/2018,07/21/2018 Pneumococcal (Pneumovax 23) 08/07/2017 Pneumococcal (Prevnar 13) 07/21/2018,08/04/2008 Family History Medical History Relation Comments Angiosarcoma Father Breast Cancer Mother Relation Status Comments Father Mother age - 50s Social History Tobacco Use Types Packs/Day Years Used Date Smoking Tobacco: Former Smokeless Tobacco: Never Tobacco Cessation:Counseling Given: Not Answered Alcohol Use Standard Drinks/Week Comments No 0 [...] Sign Reading Time Taken Comments Blood Pressure 110/62 06/24/2024 9:23 AM CDT Pulse 62 06/24/2024 9:23 AM CDT Temperature 36.5 C (97.7 F) 03/08/2021 1:07 PM CDT Respiratory Rate 18 04/22/2020 10:3 2 AM CDT Oxygen Saturation 95% 06/24/2024 9:23 AM CDT Inhaled Oxygen Concentration - - Weight 99.7 kg (219 lb 12.8 oz) 06/24/2024 9:23 AM CDT Height 182.9 cm (6') 06/24/2024 9:23 AM CDT Body Mass Index 29.81 06/24/2024 9:23 AM CDT Plan of Treatment Health Maintenance Due Date Last Done Comments Colorectal Cancer Screening Colonoscopy (10 Years) 1960 Kidney Health Evaluation 1960 Annual Physical 1963 COVID-19 Vaccine (#1) 1965 Diabetes: Retinopathy Eye Exam 1978 Hepatitis C 1978 DTaP, Tdap and Td Vaccines (1 - Tdap) 1979 Meningococcal B Vaccine (3 of 5 - Increased Risk Bexsero 3-dose series) 01/18/2019 09/15/2018, 07/21/2018 Meningococcal Vaccine (3 - Risk 2-dose series) 09/15/2023 09/15/2018, 07/21/2018 Pneumococcal Vaccine: 50+ Years (4 of 4 - PCV20 or PCV21) 10/03/2023 10/03/2018, 07/21/2018, 08/07/2017, Additional history exists Hemoglobin A1C 10/12/2024 07/13/2024, 04/04, 11/15/2022, Additional history exists Lipid Panel 05/25/2025 05/25/2024, 02/02, 01/21/2024, Additional history exists Influenza Adult (#1) 2025 08/29/2021, 08/04/2020, 08/20/2019, Additional history exists Zoster Vaccines Completed 03/19/2022, 12/09/2021 RSV Immunization or 60+ Years Completed 07/23/2023 RSV Immunizations Under 20 Months Aged Out No longer eligible based on patient's age to complete this topic Procedures Procedure Name Priority Date/Time Associated Diagnosis Comments HEMOGLOBIN, GLYCOSYLATED Routine 05/24/2021 Type 2 diabetes mellitus with hyperglycemia, with long-term current use of insulin 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 from Last 3 Months or Most Recently Relevant to Health Maintenance Results * HEMOGLOBIN, GLYCOSYLATED (05/24/2021) HGB A1C 10.5 % [facility],DECATUR 05/24/2021 us Sherice Haskins MD LABORATORY Final Result [facility] [address] [place] [address], from Last 3 Months or Most Recently Relevant to Health Maintenance Insurance [facility] [id number] [id number] Care Teams Emergency Service Restorer Relationship Specialty Start Date End Date Juan Laguerre MD [address] [facility] [address] [place] [id number] PCP - General FAMILY PRACTICE 11/07/18 Jez Denson MD [address] [facility] [place] [address] Irais Test Consultant CARDIOVASCULAR DISEASE 11/06/18 Alex Gao OD [address] [place] [address] Boil Off Worker 08/02/22
--- OUTSIDE RECORDS SUMMARY | 2025-08-09 10:27 | XMS_ITS | Encounter Summary ---
Author Organization [facility] Address [address] [place] [address] Care Team Providers Care Vamp Stitcher Name Role Phone Juan Laguerre MD Primary Care Provider [phone] Bro AWAN MD, Aubrey Lane Unavailable [phone] Jaki Nieves PhD Unavailable [phone] Source Comments In the event that this is information that is protected by federal Confidentiality of Substance User Disorder Patient Records, 42 CFR Part 2 prohibits the unauthorized disclosure of these records.[facility] Encounter Details Date Type Department Care Team (Late st Contact Info) Description 10/07/2018 Orders Only [place] Transplant Surgery [address] [facility], [address] [place], [place] [address] Makayla Cesar, ORAL SURGERY TECHNICIAN, FIRESTOPPER TECHNICIAN [address] [facility] [address] [place] [address] Social History Tobacco Use Types Packs/Day Years [...] [address] [facility], [address] [place] [address] Apt confirmed-EH documented as of this encounter Visit Diagnoses Diagnosis Liver transplant recipient (CMS-HCC) documented in this encounter Additional Health Concerns Infection Onset Date Last Indicated Resolved Time COVID-19 Comment:Tested + on 09/0109/01/2020 09/05/2020 09/25/2020 12: 31 AM ECONOMICS ANALYST documented as of this encounter Care Teams Vamp Stitcher Relationship Specialty Start Date End Date Juan Laguerre MD [address] [facility] [address] [place] [address] PCP - General Family Medicine 01/02/18 Aubrey Crabtree III, MD [address] [facility] [address] [place] [address] Hematology and Medical Oncology 10/01/18 Jaki Nieves, PhD [address] [facility] [address] [place] [address] Genetic Counseling 11/27/18 documented as of this encounter
--- OUTSIDE RECORDS SUMMARY | 2025-08-09 10:27 | XMS_ITS | Encounter Summary ---
Author Organization [facility] Address [address] [place] [address] Care Team Providers Care School Plant Consultant Name Role Phone Juan Laguerre MD Primary Care Provider [phone] Bro AWAN MD, Aubrey Lane Unavailable [phone] Jaki Nieves PhD Unavailable [phone] Source Comments In the event that this is information that is protected by federal Confidentiality of Substance User Disorder Patient Records, 42 CFR Part 2 prohibits the unauthorized disclosure of these records.[facility] Encounter Details Date Type Department Care Team (Late Contact Info) Description 12/20/2018 Procedure [place] Radiology [address] 4th [place] [address] Social History Tobacco Use Types Packs/Day Years [...] Upcoming Encounters Date Type Department Care Team ([facility] Contact Info) Description 07/15/2026 1:00 PM CDT Office Visit [place] Transplant Surgery [address] [facility], 19th [address] [place] [address] Apt confirmed-EH documented as of this encounter Visit Diagnoses Not on filedocumented in this encounter Additional Health Concerns Infection Onset Date Last Indicated Resolved Time COVID-19 Comment:Tested + on 09/0109/01/2020 09/05/2020 09/25/2020 12: 31 AM AUTOMOTIVE LUBE TECHNICIAN documented as of this encounter Care Teams School Plant Consultant Relationship Specialty Start Date End Date Juan Laguerre MD [address] [id number] PCP - General Family Medicine 01/02/18 Aubrey Crabtree III, MD [address] [address] Hematology and Medical Oncology 10/01/18 Jaki Nieves, PhD [address] [facility] [address] [place] [address] Genetic Counseling 11/27/18 documented as of this encounter
--- OUTSIDE RECORDS SUMMARY | 2025-08-09 10:27 | XMS_ITS | Encounter Summary ---
Author Organization [facility] Address [address] [place] [address] Care Team Providers Care Statistical Reporting Analyst Name Role Phone Juan Laguerre MD Primary Care Provider [phone] Bro AWAN MD, Aubrey Lane Unavailable [phone] Jaki Nieves PhD Unavailable [phone] Source Comments In the event that this is information that is protected by federal Confidentiality of Substance User Disorder Patient Records, 42 CFR Part 2 prohibits the unauthorized disclosure of these records.[facility] Encounter Details Date Type Department Care Team (Late st Contact Info) Description 09/19/2018 Orders Only [place] Transplant Surgery [address] [facility], 19th [address] [place], [place] [address] Makayla Cesar, GROCERY PACKER, V BELT BUILDER [address] [facility] [address] [place] [address] Social History Tobacco Use Types Packs/Day Years [...] [address], [address] [place] [address] Apt confirmed-EH documented as of this encounter Procedures Procedure Name Priority Date/Time Associated Diagnosis Comments TACROLIMUS Routine 09/20/2018 8:33 AM LONG TERM BK VIRUS QUANT VIRAL LOAD, URINE Routine 09/20/2018 8:33 AM LONG TERM MYCOPHENOLIC ACID Routine 09/20/2018 8:3 3 AM LONG TERM BK VIRUS DNA QUANT PCR, BLOOD Routine 09/20/2018 8:33 AM LONG TERM documented in this encounter Results * BK Virus DNA Quant PCR, Blood (09/20/2018 8:33 AM LONG TERM) BK Virus DNA, Qn PCR - External 601 EXTERNAL LAB 09/20/2018 8:33 AM LONG TERM Narrative EXTERNAL LAB - 09/30/2018 10:52 AM LONG TERM Verified by Monie Siddiqui on 09/30/2018. us Noe Keyes MD IMMUNOLOGY ORDERABLES Final Result EXTERNAL LAB * Tacrolimus (09/20/2018 8:33 AM LONG TERM) Tacrolimus (FK506), Blood - External 2.6 EXTERNAL LAB 09/20/2018 8:33 AM LONG TERM Narrative EXTERNAL LAB - 09/30/2018 10:52 AM LONG TERM Verified by Monie Siddiqui on 09/30/2018. us Noe Keyes MD CHEMISTRY ORDERABLES Final R esult EXTERNAL LAB * Mycophenolic Acid (09/20/2018 8:33 AM LONG TERM) Mycophenolic Acid - External 1.1 EXTERNAL LAB 09/20/2018 8:33 AM LONG TERM Narrative EXTERNAL LAB - 09/30/2018 10:52 AM LONG TERM Verified by Monie Siddiqui on 09/30/2018. Noe Keyes MD CHEMISTRY ORDERABLES Final R esult Performing Organization Address City/[facility]/ZIP Co de Phone Number EXTERNAL LAB * BK Virus Quant Viral Load, Urine (09/20/2018 8:33 AM LONG TERM) BK Quantitation Urine - External 313,000 EXTERNAL LAB 09/20/2018 8:33 AM LONG TERM Narrative EXTERNAL LAB - 09/27/2018 7:22 AM LONG TERM Verified by Monie Siddiqui on 09/27/2018. Noe Keyes MD URINE ORDERABLES Final Resul t Performing Organization Address [facility] Co de Phone Number EXTERNAL LAB documented in this encounter Visit Diagnoses Diagnosis Liver transplant recipient (CMS-HCC) documented in this encounter Additional Health Concerns Infection Onset Date Last Indicated Resolved Time COVID-19 Comment:Tested + on 09/0109/01/2020 09/05/2020 09/25/2020 12: 31 AM LONG TERM documented as of this encounter Care Teams Statistical Reporting Analyst Relationship Specialty Start Date End Date Juan Laguerre MD [address] [facility] [address] [place] [id number] PCP - General Family Medicine 01/02/18 Aubrey Crabtree III, MD [address] [facility] [address] [place] [address] Hematology and Medical Oncology 10/01/18 Jaki Nieves, PhD [address] [facility] [address] [place] [address] Genetic Counseling 11/27/18 documented as of this encounter
--- OUTSIDE RECORDS SUMMARY | 2025-08-09 10:27 | XMS_ITS | Encounter Summary ---
Author Organization [facility] Address [address] [place] [address] Care Team Providers Care Horse Breeder Name Role Phone Juan Laguerre MD Primary Care Provider [phone] Bro AWAN MD, Aubrey Lane Unavailable [phone] Jaki Nieves PhD Unavailable [phone] Source Comments In the event that this is information that is protected by federal Confidentiality of Substance User Disorder Patient Records, 42 CFR Part 2 prohibits the unauthorized disclosure of these records.[facility] Encounter Details Date Type Department Care Team (Late st Contact Info) Description 10/10/2018 Orders Only NM Transplant Surgery [address] [facility], [address]th [address] [place], [place] [address] Makayla Cesar, MONKEY BREEDER, POCKETS AND PIECES NECKTIE OPERATOR [address] [facility] [address] [place] [address] Social History Tobacco Use Types Packs/Day Years [...] [address] [place] [address] Apt confirmed-EH documented as of this encounter Procedures Procedure Name Priority Date/Time Associated Diagnosis Comments MYCOPHENOLIC ACID Routine 10/10/2018 5:4 0 AM BUSINESS TECHNOLOGY TEACHER PROTEIN/CREAT RATIO, RANDOM URINE Routine 10/10/2018 5:40 AM BUSINESS TECHNOLOGY TEACHER URINALYSIS WITH MICROSCOPIC Routine 10/10/2018 5:40 AM BUSINESS TECHNOLOGY TEACHER CBC AND DIFFERENTIAL Routine 10/10/2018 5:40 AM BUSINESS TECHNOLOGY TEACHER PHOSPHORUS LEVEL Routine 10/10/2018 5:40 AM BUSINESS TECHNOLOGY TEACHER COMPREHENSIVE METABOLIC PANEL Routine 10/10/2018 5:40 AM BUSINESS TECHNOLOGY TEACHER documented in this encounter Results * (ABNORMAL) Urinalysis with Microscopic (10/10/2018 5:40 AM BUSINESS TECHNOLOGY TEACHER) Specific [place], Urine - External 1.009 EXTERNAL LAB UA [...] External CLEAR EXTERNAL LAB 10/10/2018 5:40 AM BUSINESS TECHNOLOGY TEACHER Narrative EXTERNAL LAB - 10/15/2018 10:58 AM BUSINESS TECHNOLOGY TEACHER Verified by Monie Siddiqui on 10/15/2018. us Noe Keyes MD URINE ORDERABLES Final Resul t EXTERNAL LAB * Phosphorus Level (10/10/2018 5:40 AM BUSINESS TECHNOLOGY TEACHER) Phosphorous - External 3.3 EXTERNAL LAB 10/10/2018 5:40 AM BUSINESS TECHNOLOGY TEACHER Narrative EXTERNAL LAB - 10/15/2018 10:58 AM BUSINESS TECHNOLOGY TEACHER Verified by Monie Siddiqui on 10/15/2018. Noe Keyes MD CHEMISTRY ORDERABLES Final R esult EXTERNAL LAB * Protein /Creatinine Ratio, Urine (10/10/2018 5:40 AM BUSINESS TECHNOLOGY TEACHER) Prot/Creat Ratio - External 0.59 EXTERNAL LAB Urine Creatinine, Random - External 59 EXTERNAL LAB Protein, Urine - External 34.9 EXTERNAL LAB 10/10/2018 5:40 AM BUSINESS TECHNOLOGY TEACHER Narrative EXTERNAL LAB - 10/15/2018 10:58 AM BUSINESS TECHNOLOGY TEACHER Verified by Monie Siddiqui on 10/15/2018. Noe Keyes MD URINE ORDERABLES Final Resul t Performing Organization Address City/[facility]/ZIP Co de Phone Number EXTERNAL LAB * Mycophenolic Acid (10/10/2018 5:40 AM BUSINESS TECHNOLOGY TEACHER) Mycophenolic Acid - External 2.0 0 - 35 EXTERNAL LAB 10/10/2018 5:40 AM BUSINESS TECHNOLOGY TEACHER Narrative EXTERNAL LAB - 10/13/2018 2:47 PM BUSINESS TECHNOLOGY TEACHER Verified by Natali Alvarenga on 10/13/2018. Noe Keyes MD CHEMISTRY ORDERABLES Final R esult EXTERNAL LAB * (ABNORMAL) CBC with Differential (10/10/2018 5:40 AM BUSINESS TECHNOLOGY TEACHER) White Blood Cells - External 11.06 EXTERNAL [...] Abs (cells/uL) - External 4.78 EXTERNAL LAB [place] Absolute - External 1.40 EXTERNAL LAB Eosinophils - External 1.7 EXTERNAL LAB - External 0.19 EXTERNAL LAB Basophils - External 1.4 EXTERNAL LAB 10/10/2018 5:40 AM BUSINESS TECHNOLOGY TEACHER Narrative EXTERNAL LAB - 10/11/2018 8:26 AM BUSINESS TECHNOLOGY TEACHER Verified by Monie Siddiqui on 10/11/2018. us Noe Keyes MD HEMATOLOGY ORDERABLES Final Result EXTERNAL LAB * (ABNORMAL) Comp Metabolic Panel (10/10/2018 5:40 AM BUSINESS TECHNOLOGY TEACHER) Sodium - External 136 133 - 145 [...] >60 >=60 EXTERNAL LAB 10/10/2018 5:40 AM BUSINESS TECHNOLOGY TEACHER Narrative EXTERNAL LAB - 10/10/2018 2:50 PM BUSINESS TECHNOLOGY TEACHER Verified by Monie Siddiqui on 10/10/2018. us Noe Keyes MD CHEMISTRY ORDERABLES Final R esult EXTERNAL LAB documented in this encounter Visit Diagnoses Diagnosis Liver transplant recipient (CMS-HCC) documented in this encounter Additional Health Concerns Infection Onset Date Last Indicated Resolved Time COVID-19 Comment:Tested + on 09/0109/01/2020 09/05/2020 09/25/2020 12: 31 AM BUSINESS TECHNOLOGY TEACHER documented as of this encounter Care Teams Horse Breeder Relationship Specialty Start Date End Date Juan Laguerre MD [address] [facility] [address] [place] [id number] PCP - General Family Medicine 01/02/18 Aubrey Crabtree III, MD [address] [facility] [address] [place] [address] Hematology and Medical Oncology 10/01/18 Jaki Nieves, PhD [address] [facility] [address] [place] [address] Genetic Counseling 11/27/18 documented as of this encounter
--- OUTSIDE RECORDS SUMMARY | 2025-08-09 10:27 | XMS_ITS | Encounter Summary ---
Author Organization [facility] Address [address] [place] [address] Care Team Providers Care Store Team Member Name Role Phone Juan Lageurre MD Primary Care Provider [phone] Bro AWAN MD, Aubrey Lane Unavailable [phone] Jaki Nieves PhD Unavailable [phone] Source Comments In the event that this is information that is protected by federal Confidentiality of Substance User Disorder Patient Records, 42 CFR Part 2 prohibits the unauthorized disclosure of these records.[facility] Encounter Details Date Type Department Care Team (Late st Contact Info) Description 09/23/2018 Orders Only NM Transplant Surgery [address] [facility], 19[address] [place], [place] [address] Makayla Cesar, ENRICHMENT ASSISTANT, FREIGHT TEAM ASSOCIATE [address] [facility] [address] [place] [address] Social History Tobacco Use Types Packs/Day Years [...] NM Transplant Surgery [address] [facility], [address] [place] [address] Apt confirmed-EH documented as of this encounter Visit Diagnoses Diagnosis Liver transplant recipient (CMS-HCC) documented in this encounter Additional Health Concerns Infection Onset Date Last Indicated Resolved Time COVID-19 Comment:Tested + on 09/0109/01/2020 09/05/2020 09/25/2020 12: 31 AM REGISTERED CLIENT ASSOCIATE documented as of this encounter Care Teams Store Team Member Relationship Specialty Start Date End Date Juan Laguerre MD [address] [facility] [address] [place] [address] PCP - General Family Medicine 01/02/18 Aubrey Crabtree III, MD [address] [facility] [address] [place] [address] Hematology and Medical Oncology 10/01/18 Jaki Nieves, PhD [address] [facility] [address] [place] [address] Genetic Counseling 11/27/18 documented as of this encounter
--- OUTSIDE RECORDS SUMMARY | 2025-08-09 10:27 | XMS_ITS | Encounter Summary ---
Author Organization [facility] Address [address] [place] [address] Care Team Providers Care Cafe Team Member Name Role Phone Juan Laguerre MD Primary Care Provider [phone] Bro AWAN MD, Aubrey Lane Unavailable [phone] Jaki Nieves PhD Unavailable [phone] Source Comments In the event that this [...] [facility], 19th Floor [address] [place], [place] [address] Noe Keyes MD [address] [facility] [address], [place] [address] Social History Tobacco Use Types Packs/Day Years [...] [facility], 19th Floor [address] [place] [address] Apt confirmed-EH documented as of this encounter Visit Diagnoses Diagnosis Kidney transplanted Kidney replaced by transplant documented in this encounter Additional Health Concerns Infection Onset Date Last Indicated Resolved Time COVID-19 Comment:Tested + on 09/0109/01/2020 09/05/2020 09/25/2020 12: 31 AM ASSOCIATE PROFESSOR OF BIOSTATISTICS documented as of this encounter Care Teams Cafe Team Member Relationship Specialty Start Date End Date Juan Laguerre MD [address] [facility] [address] [place] [address] PCP - General Family Medicine 01/02/18 Aubrey Crabtree III, MD [address] [facility] [address] [place] [address] Hematology and Medical Oncology 10/01/18 Jaki Nieves, PhD [address] [facility] [address] [place] [address] Genetic Counseling 11/27/18 documented as of this encounter
--- OUTSIDE RECORDS SUMMARY | 2025-08-09 10:27 | XMS_ITS | Encounter Summary ---
Author Organization [facility] Address [address] [place] [address] Care Team Providers Care Windows Systems Administrator Name Role Phone Juan Laguerre MD Primary Care Provider [phone] Bro AWAN MD, Aubrey Lane Unavailable [phone] Jaki Nieves PhD Unavailable [phone] Source Comments In the event that this is information that is protected by federal Confidentiality of Substance User Disorder Patient Records, 42 CFR Part 2 prohibits the unauthorized disclosure of these records.[facility] Encounter Details Date Type Department Care Team (Late Contact Info) Description 12/24/2018 Procedure Pass NM Cardiology [address], 8[address] [place] [address] Social History Tobacco Use Types Packs/Day Years [...] Upcoming Encounters Date Type Department Care Team ([facility] Contact Info) Description 07/15/2026 1:00 PM CDT Office Visit NM Transplant Surgery [address], [address] [place] [address] Apt confirmed-EH documented as of this encounter Visit Diagnoses Not on filedocumented in this encounter Additional Health Concerns Infection Onset Date Last Indicated Resolved Time COVID-19 Comment:Tested + on 09/0109/01/2020 09/05/2020 09/25/2020 12: 31 AM HEALTH PHYSICIST documented as of this encounter Care Teams Windows Systems Administrator Relationship Specialty Start Date End Date Juan Laguerre MD [address] [id number] PCP - General Family Medicine 01/02/18 Aubrey Crabtree III, MD [address] [address] Hematology and Medical Oncology 10/01/18 Jaki Nieves, PhD [address] [facility] [address] [place] [address] Genetic Counseling 11/27/18 documented as of this encounter
--- OUTSIDE RECORDS SUMMARY | 2025-08-09 10:27 | XMS_ITS | Encounter Summary ---
Author Organization [facility] Address [address] [place] [address] Care Team Providers Care Metallurgy Laboratory Technician Name Role Phone Juan Laguerre MD Primary Care Provider [phone] Bro AWAN MD, Aubrey Lane Unavailable [phone] Jaki Nieves PhD Unavailable [phone] Source Comments In the event that this is information that is protected by federal Confidentiality of Substance User Disorder Patient Records, 42 CFR Part 2 prohibits the unauthorized disclosure of these records.[facility] Encounter Details Date Type Department Care Team (Late st Contact Info) Description 06/01/2019 Orders Only NM Transplant Surgery [address] [facility], 19[address] [place], [place] [address] Cathleen Gallegos MD [address] [facility] [address], [place] [address] Social History Tobacco Use Types Packs/Day Years [...] [facility], 19th Floor [address] [place] [address] Apt confirmed-EH documented as of this encounter [...] on 09/0109/01/2020 09/05/2020 09/25/2020 12: 31 AM PSYCHIATRIC AIDES TEACHER documented as of this encounter Care Teams Metallurgy Laboratory Technician Relationship Specialty Start Date End Date Juan Laguerre MD [address] [facility] [address] [place] [phone] PCP - General Family Medicine 01/02/18 Aubrey Crabtree III, MD [address] [facility] [address] [place] [address] Hematology and Medical Oncology 10/01/18 Jaki Nieves, PhD [address] [facility] [address] [place] [address] Genetic Counseling 11/27/18 documented as of this encounter
--- OUTSIDE RECORDS SUMMARY | 2025-08-09 10:27 | XMS_ITS | Encounter Summary ---
Author Organization [facility] Address [address] [place] [address] Care Team Providers Care Manager Wealth Management Name Role Phone Juan Laguerre MD Primary Care Provider [phone] Bro AWAN MD, Aubrey Lane Unavailable [phone] Jaki Nieves PhD Unavailable [phone] Source Comments In the event that this [...] [facility], 19th Floor [address] [place], [place] [address] Noe Keyes MD [address] [facility] [address] [address] Social History Tobacco Use Types Packs/Day Years [...] [facility], 19[facility] Floor [address] [place] [address] Apt confirmed-EH documented as of this encounter Procedures Procedure Name Priority Date/Time Associated Diagnosis Comments URINALYSIS WITH MICROSCOPIC Routine 10/31/2018 5:58 AM APPLICATIONS DEVELOPER CBC AND DIFFERENTIAL Routine 10/31/2018 5:58 AM APPLICATIONS DEVELOPER AST (SGOT) Routine 10/31/2018 5:58 AM APPLICATIONS DEVELOPER PROTEIN, TOTAL Routine 10/31/2018 5:58 AM APPLICATIONS DEVELOPER RENAL FUNCTION PANEL Routine 10/31/2018 5:58 AM APPLICATIONS DEVELOPER TACROLIMUS Routine 10/24/2018 5:58 AM APPLICATIONS DEVELOPER PROTEIN/CREAT RATIO, RANDOM URINE Routine 10/24/2018 5:56 AM APPLICATIONS DEVELOPER URINALYSIS WITH MICROSCOPIC Routine 10/24/2018 5:56 AM APPLICATIONS DEVELOPER CBC AND DIFFERENTIAL Routine 10/24/2018 5:56 AM APPLICATIONS DEVELOPER HEPATIC FUNCTION PANEL Routine 10/24/2018 5:56 AM APPLICATIONS DEVELOPER RENAL FUNCTION PANEL Routine 10/24/2018 5:56 AM APPLICATIONS DEVELOPER documented in this encounter Results * AST (SGOT) (10/31/2018 5:58 AM APPLICATIONS DEVELOPER) Blood specimen (specimen) 10/31/2018 5:58 AM APPLICATIONS DEVELOPER Narrative EXTERNAL LAB - 10/31/2018 3:58 PM APPLICATIONS DEVELOPER Verified by Natali Alvarenga on 10/31/2018. us Noe Keyes MD CHEMISTRY ORDERABLES Edited Result - Final EXTERNAL LAB * (ABNORMAL) Urinalysis with Microscopic (10/31/2018 5:58 AM APPLICATIONS DEVELOPER) Urine specimen (specimen) 10/31/2018 5:58 AM APPLICATIONS DEVELOPER Narrative EXTERNAL LAB - 10/31/2018 3:58 PM APPLICATIONS DEVELOPER Verified by Natali Alvarenga on 10/31/2018. Noe Keyes MD URINE ORDERABLES Edited Resu lt - Final Performing Organization Address [facility] Phone Number EXTERNAL LAB * Protein, total (10/31/2018 5:58 AM APPLICATIONS DEVELOPER) Blood specimen (specimen) 10/31/2018 5:58 AM APPLICATIONS DEVELOPER Narrative EXTERNAL LAB - 10/31/2018 3:58 PM APPLICATIONS DEVELOPER Verified by Natali Alvarenga on 10/31/2018. Noe Keyes MD CHEMISTRY ORDERABLES Edited Result - Final Performing Organization Address [facility] Phone Number EXTERNAL LAB * (ABNORMAL) Renal function panel (10/31/2018 5:58 AM APPLICATIONS DEVELOPER) Blood specimen (specimen) 10/31/2018 5:58 AM APPLICATIONS DEVELOPER Narrative EXTERNAL LAB - 10/31/2018 3:58 PM APPLICATIONS DEVELOPER Verified by Natali Alvarenga on 10/31/2018. Noe Keyes MD CHEMISTRY ORDERABLES Edited Result - Final Performing Organization Address [facility] Phone Number EXTERNAL LAB * (ABNORMAL) CBC with Differential (10/31/2018 5:58 AM APPLICATIONS DEVELOPER) Blood specimen (specimen) 10/31/2018 5:58 AM APPLICATIONS DEVELOPER Narrative EXTERNAL LAB - 10/31/2018 3:58 PM APPLICATIONS DEVELOPER Verified by Natali Alvarenga on 10/31/2018. us Noe Keyes MD HEMATOLOGY ORDERABLES Edited Result - Final Performing Organization Address [facility] de Phone Number EXTERNAL LAB * Tacrolimus (10/24/2018 5:58 AM APPLICATIONS DEVELOPER) Tacrolimus (FK506), Blood - External 5.2 EXTERNAL LAB 10/24/2018 5:58 AM APPLICATIONS DEVELOPER Narrative EXTERNAL LAB - 10/27/2018 2:36 PM APPLICATIONS DEVELOPER Verified by Galina Raza on 10/27/2018. us Cathleen Gallegos MD CHEMISTRY ORDERABLES Final Resul t Performing Organization Address City/[facility]/ZIP Co de Phone Number EXTERNAL LAB * (ABNORMAL) Protein /Creatinine Ratio, Urine (10/24/2018 5:56 AM APPLICATIONS DEVELOPER) Pathologist [facility] Protein, Urine - External 31.1(H) Negative EXTERNAL LAB Urine Creatinine, Random - External 38 EXTERNAL LAB Prot/Creat Ratio - External 0.82 EXTERNAL LAB 10/24/2018 5:56 AM APPLICATIONS DEVELOPER Narrative EXTERNAL LAB - 10/29/2018 2:05 PM APPLICATIONS DEVELOPER Verified by Monie Siddiqui on 10/29/2018. us Noe Keyes MD URINE ORDERABLES Final Resul t Performing Organization Address [facility]/[place] de Phone Number EXTERNAL LAB * Urinalysis with Microscopic (10/24/2018 5:56 AM APPLICATIONS DEVELOPER) Pathologist [facility] Specific [place], Urine - External 1.006 EXTERNAL LAB UA [...] External TRACE EXTERNAL LAB 10/24/2018 5:56 AM APPLICATIONS DEVELOPER Narrative EXTERNAL LAB - 10/29/2018 2:05 PM APPLICATIONS DEVELOPER Verified by Monie Siddiqui on 10/29/2018. us Noe Keeys MD URINE ORDERABLES Final Resul t Performing Organization Address City/[facility]/ZIP Co de Phone Number EXTERNAL LAB * Hepatic function panel (10/24/2018 5:56 AM APPLICATIONS DEVELOPER) Total Protein - External 8.3 EXTERNAL LAB Albumin - External 3.6 EXTERNAL LAB AST (SGOT) - External 14 0 - 37 EXTERNAL LAB Alkaline Phos - External 81 EXTERNAL LAB ALT (SGPT) - External 18 EXTERNAL LAB Direct Bilirubin - External 0.4 EXTERNAL LAB 10/24/2018 5:56 AM APPLICATIONS DEVELOPER Narrative EXTERNAL LAB - 10/29/2018 2:05 PM APPLICATIONS DEVELOPER Verified by Monie Siddiqui on 10/29/2018. Noe Keyes MD CHEMISTRY ORDERABLES Final R esult Performing Organization Address City/[facility]/ZIP Co de Phone Number EXTERNAL LAB * Renal function panel (10/24/2018 5:56 AM APPLICATIONS DEVELOPER) Pathologist [facility] Sodium - External 134 EXTERNAL LAB Potassium [...] External 99 EXTERNAL LAB 10/24/2018 5:56 AM APPLICATIONS DEVELOPER Narrative EXTERNAL LAB - 10/29/2018 2:05 PM APPLICATIONS DEVELOPER Verified by Monie Siddiqui on 10/29/2018. Noe Keyes MD CHEMISTRY ORDERABLES Final R esult EXTERNAL LAB * (ABNORMAL) CBC with Differential (10/24/2018 5:56 AM APPLICATIONS DEVELOPER) Hemoglobin - External 11.2 EXTERNAL LAB Hematocrit [...] Abs (cells/uL) - External 3.10 EXTERNAL LAB [place] Absolute - External 0.51 EXTERNAL LAB - External 0.11 EXTERNAL LAB 10/24/2018 5:5 6 AM APPLICATIONS DEVELOPER Narrative EXTERNAL LAB - 10/29/2018 2:05 PM APPLICATIONS DEVELOPER Verified by Monie Siddiqui on 10/29/2018. us Noe Keyes MD HEMATOLOGY ORDERABLES Final Result EXTERNAL LAB documented in this encounter Visit Diagnoses Diagnosis Kidney transplanted Kidney replaced by transplant documented in this encounter Additional Health Concerns Infection Onset Date Last Indicated Resolved Time COVID-19 Comment:Tested + on 09/0109/01/2020 09/05/2020 09/25/2020 12: 31 AM APPLICATIONS DEVELOPER documented as of this encounter Care Teams Manager Wealth Management Relationship Specialty Start Date End Date Juan Laguerre MD [address] [facility] [address] [place] [address] PCP - General Family Medicine 01/02/18 Aubrey Crabtree III, MD [address] [facility] [address] [place] [address] Hematology and Medical Oncology 10/01/18 Jaki Nieves, PhD [address] [facility] [address] [place] [address] Genetic Counseling 11/27/18 documented as of this encounter
--- OUTSIDE RECORDS SUMMARY | 2025-08-09 10:27 | XMS_ITS | Encounter Summary ---
Author Organization [facility] Address [address] [place] [address] Care Team Providers Care Education Administrator Name Role Phone Juan Laguerre MD Primary Care Provider [phone] Bro AWAN MD, Aubrey Lane Unavailable [phone] Jaki Nieves PhD Unavailable [phone] Source Comments In the event that this [...] Clinical Update [place] Transplant Surgery [address] [facility], 19th Floor [address] [place] [address] Beth Yoon (kidney trf compleye) Social History [...] [facility], 19th Floor [address] [place] [address] Apt confirmed-EH documented as of this encounter Visit Diagnoses Not on filedocumented in this encounter Additional Health Concerns Infection Onset Date Last Indicated Resolved Time COVID-19 Comment:Tested + on 09/0109/01/2020 09/05/2020 09/25/2020 12: 31 AM SPEECH COMMUNICATION INSTRUCTOR documented as of this encounter Care Teams Education Administrator Relationship Specialty Start Date End Date Juan Laguerre MD [address] [facility] [address] [place] [address] [phone] PCP - General Family Medicine 01/02/18 Aubrey Crabtree III, MD [address] [facility] [address] [place] [address] Hematology and Medical Oncology 10/01/18 Jaki Nieves, PhD [address] [facility] [address] [place] [address] Genetic Counseling 11/27/18 documented as of this encounter
--- OUTSIDE RECORDS SUMMARY | 2025-08-09 10:27 | XMS_ITS | Encounter Summary ---
Author Organization [facility] Address [address] [place] [address] Care Team Providers Care Aluminum Hydroxide Process Operator Name Role Phone Juan Laguerre MD Primary Care Provider [phone] Bro AWAN MD, Aubrey Lane Unavailable [phone] Jaki Nieves PhD Unavailable [phone] Source Comments In the event that this is information that is protected by federal Confidentiality of Substance User Disorder Patient Records, 42 CFR Part 2 prohibits the unauthorized disclosure of these records.[facility] Encounter Details Date Type Department Care Team (Late st Contact Info) Description 09/28/2018 Questionnaire Series Submission Initial Department [address] [place], [place] [id number] Provider Gabrielle Jolley DO NOT EDIT THIS [...] [address], [address] [place] [address] Apt confirmed-EH documented as of this encounter Visit Diagnoses Not on filedocumented in this encounter Additional Health Concerns Infection Onset Date Last Indicated Resolved Time COVID-19 Comment:Tested + on 09/0109/01/2020 09/05/2020 09/25/2020 12: 31 AM VACUUM TANK TENDER documented as of this encounter Care Teams Aluminum Hydroxide Process Operator Relationship Specialty Start Date End Date Juan Laguerre MD [address] [facility] [address] [place] [address] PCP - General Family Medicine 01/02/18 Aubrey Crabtree III, MD [address] [facility] [address] [place] [address] Hematology and Medical Oncology 10/01/18 Jaki Nieves, PhD [address] [place], [place] [address] Genetic Counseling 11/27/18 documented as of this encounter
--- OUTSIDE RECORDS SUMMARY | 2025-08-09 10:28 | XMS_ITS | Encounter Summary ---
Author Organization [facility] Address [address] [place] [address] Phone Care Team Providers Care Financial Management Consultant Name Role Phone Juan Laguerre MD Primary Care Provider [phone] Rell Painting MD Unavailable [phone] Bro AWAN MD, James L Unavailable [phone] Jez Denson MD Unavailable Cathleen Gallegos MD Unavailable Vikram Garza MD Unavailable [phone] Treva Ewdards MD Unavailable [phone] Sanchez Bills DPSanjay Unavailable [phone] Encounter Details Date Type Department Care Team (Latest Contact Info) Description 09/07/[address] [facility] Laboratory Services [address] [place] [address] Juan Laguerre MD [address] [place] [address] Encounter for screening for malignant neoplasm [...] PM CDT Lab [facility] [address] [id number] Lab, Cc [facility] 08/10/2025 1:00 PM CDT Ancillary Procedure [facility] [address] [phone] 08/17/2025 9:00 AM CDT Office Visit [facility] [address] [phone] Tyler Haile MD [address] [place] [address] documented as of this encounter Results * (ABNORMAL) HEMOGLOBIN A1C W/ ESTIMATED GLUCOSE (09/11/2022 6:10 AM ACCOUNTS PAYABLE ACCOUNTANT) HGB-A1C 10.1(H) 3.8 - 5.6 % 09/11/2022 8:41 AM [facility] Blood Venipuncture / Unknown 09/11/2022 6:10 AM ACCOUNTS PAYABLE ACCOUNTANT 09/11/2022 7:14 AM [facility] - 09/11/2022 8:41 AM ACCOUNTS PAYABLE ACCOUNTANT Per ADA recommendations, HbA1c <7% is the goal for glycemic control, >8% suggests additional action needed. (Siemens Dimension [place] HbA1c method) This assay measures any hemoglobin [...] ORDERABLES Final Resu lt Performing Organization Address [facility] de Phone Number [address] [address] * PSA SCREEN (09/11/2022 6:10 AM ACCOUNTS PAYABLE ACCOUNTANT) PSA SCREEN, TOTAL 0.44 0.00 - 4.00 ng/mL 09/11/2022 9:02 AM ACCOUNTS PAYABLE ACCOUNTANT [facility] Comment:Performed by chemilu minometric assay on the Siemens ADVIA [place]. Values obtained with different methods cannot be used interchangeably for patient monitoring. PSA is not a specific test for prostatic carcinoma and can be elevated with benign prostatic disease or following prostatic manipulation. Heterophilic antibodies may interfere with this assay. Blood Venipuncture / Unknown 09/11/2022 6:10 AM ACCOUNTS PAYABLE ACCOUNTANT 09/11/2022 7:14 AM ACCOUNTS PAYABLE ACCOUNTANT Juan Laguerre MD CHEMISTRY ORDERABLES Final Resu lt Performing Organization Address [facility] Co de Phone Number [address] [address] documented in this encounter Visit [...] as of this encounter Care Teams Financial Management Consultant Relationship Specialty Start Date End Date Juan Laguerre MD [address] [place] [address] [place] [address] PCP - General Family Medicine 10/05/16 Rell Painting MD [address] [place] [address] Consulting Physician General Surgery 10/22/18 Aubrey Crabtree III, MD [address] [facility] [address] [place] [address] Medical Oncologist Internal Medicine 11/06/18 Jez Denson MD [facility] [address] [facility] [place] [address] Consulting Physician Cardiovascular Disease - Cardiology 01/19/19 Cathleen Gallegos MD [address] [address] Consulting Physician Nephrology 01/19/19 Vikram Garza MD [address] [phone] Consulting Physician Cardiovascular Disease - Cardiology 01/19/19 Treva Edwards MD [address] [place] [address] [phone] Consulting Physician Internal Medicine 08/31/20 Sanchez Bills DPM [address] [facility] [address] [place] [address] Consulting Physician Podiatry 08/31/20 documented as of this encounter
--- OUTSIDE RECORDS SUMMARY | 2025-08-09 10:28 | XMS_ITS | Encounter Summary ---
Author Organization [facility] Address [address] [place] [address] Care Team Providers Care Gear Grinder Name Role Phone Juan Laguerre MD Primary Care Provider [phone] Bro AWAN MD, Aubrey Lane Unavailable [phone] Jaki Nieves PhD Unavailable [phone] Source Comments In the event that this is information that is protected by federal Confidentiality of Substance User Disorder Patient Records, 42 CFR Part 2 prohibits the unauthorized disclosure of these records.[facility] Encounter Details Date Type Department Care Team (Late Contact Info) Description 07/08/2023 Orders Only [place] Transplant Surgery [address] [facility], 19th Floor [address] [place] [address] Mee Michele RN Social History Tobacco Use [...] Upcoming Encounters Date Type Department Care Team ([facility] Contact Info) Description 07/15/2026 1:00 PM CDT Office Visit [place] Transplant Surgery [address] [facility], 19th Floor [address] [place], [place] [address] Apt confirmed-EH documented as of this encounter Visit Diagnoses Diagnosis Kidney transplant recipient 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) Liver replaced by transplant Encounter for monitoring immunomodulating therapy Encounter for therapeutic drug monitoring documented in this encounter Care Teams Gear Grinder Relationship Specialty Start Date End Date Juan Laguerre MD [address] [phone] PCP - General Family Medicine 01/02/18 Aubrey Crabtree III, MD [address] [address] Hematology and Medical Oncology 10/01/18 Jaki Nieves, PhD [address] [facility] [address] [place] [address] Genetic Counseling 11/27/18 documented as of this encounter
--- OUTSIDE RECORDS SUMMARY | 2025-08-09 10:28 | XMS_ITS | Encounter Summary ---
Author Organization [facility] Address [address] [place] [address] Care Team Providers Care Rod Filler Name Role Phone Juan Laguerre MD Primary Care Provider [phone] Bro AWAN MD, Aubrey Lane Unavailable [phone] Jaki Nieves PhD Unavailable [phone] Source Comments In the event that this is information that is protected by federal Confidentiality of Substance User Disorder Patient Records, 42 CFR Part 2 prohibits the unauthorized disclosure of these records.[facility] Encounter Details Date Type Department Care Team (Late st Contact Info) Description 09/01/2018 Orders Only NM Transplant Surgery [address] [facility], 19th Floor [address] [place], [place] [address] Noe Keyes MD [address] [facility] [address] [address] Social History Tobacco Use Types Packs/Day Years [...] [facility], 19th Floor [address] [place] [address] Apt confirmed-EH documented as of this encounter Visit Diagnoses Diagnosis Kidney transplanted Kidney replaced by transplant documented in this encounter Additional Health Concerns Infection Onset Date Last Indicated Resolved Time COVID-19 Comment:Tested + on 09/0109/01/2020 09/05/2020 09/25/2020 12: 31 AM 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
--- OUTSIDE RECORDS SUMMARY | 2025-08-09 10:28 | XMS_ITS | Encounter Summary ---
Author Organization [facility] Address [address] [place] [address] Care Team Providers Care Mud Mixer Name Role Phone Juan Laguerre MD Primary Care Provider [phone] Bro AWAN MD, Aubrey Lane Unavailable [phone] Jaki Nieves PhD Unavailable [phone] Source Comments In the event that this is information that is protected by federal Confidentiality of Substance User Disorder Patient Records, 42 CFR Part 2 prohibits the unauthorized disclosure of these records.[facility] Encounter Details Date Type Department Care Team (Late Contact Info) Description 07/14/2018 FS Transcribe Orders [place] Transplant Surgery [address] [facility], 19th Floor [address] [place] [address] Forrest Randle Social History Tobacco Use Types [...] [address], [address] [place] [address] Apt confirmed-EH documented as of this encounter Visit Diagnoses Not on filedocumented in this encounter Additional Health Concerns Infection Onset Date Last Indicated Resolved Time COVID-19 Comment:Tested + on 09/0109/01/2020 09/05/2020 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
--- OUTSIDE RECORDS SUMMARY | 2025-08-09 10:28 | XMS_ITS | Encounter Summary ---
Author Organization [facility] Address [address] [place] [address] Care Team Providers Care Senior Military Analyst Name Role Phone Juan Laguerre MD Primary Care Provider [phone] Bro AWAN MD, Aubrey Lane Unavailable [phone] Jaki Nieves PhD Unavailable [phone] Source Comments In the event that this is information that is protected by federal Confidentiality of Substance User Disorder Patient Records, 42 CFR Part 2 prohibits the unauthorized disclosure of these records.[facility] Reason for Referral * MRI/CAT Scan (Routine) - Closed Specialty Diagnoses / Procedures Referred By Contac t Referred To Contact Radiology Diagnoses Acute pancreatitis, unspecified complication status, unspecified pancreatitis type Procedures CT Chest with Contrast CT Chest without Contrast Rell Painting MD Phone: tel: fax: Referral ID Status Reason Start Date Expiration Date Visits Re quested Visits Authorized [id number] Closed 07/14/2018 10/13/2019 1 1 Encounter Details Date Type Department Care Team (Latest Contact Info) Description 07/24/2018 Ancillary Orders [place] Transplant Surgery [address] [facility], 19th Floor [address] [place] [address] Rell Painting MD [address] [facility] [address] [place] [address] Acute pancreatitis, unspecified complication status, unspecified pancreatitis [...] [address] [facility], 19th Floor [address] [place] [address] Apt confirmed-EH documented as of this encounter [...] on 09/0109/01/2020 09/05/2020 09/25/2020 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
--- OUTSIDE RECORDS SUMMARY | 2025-08-09 10:28 | XMS_ITS | Encounter Summary ---
Author Organization [facility] Address [address] [place] [address] Care Team Providers Care Skein Mercerizing Machine Operator Name Role Phone Juan Laguerre MD Primary Care Provider [phone] Bro AWAN MD, Aubrey Lane Unavailable [phone] Jaki Nieves PhD Unavailable [phone] Source Comments In the event that this [...] [facility], 19th Floor [address] [place], [place] [address] Noe Keyes MD [address] [facility] [address] [address] Social History Tobacco Use Types Packs/Day Years [...] [facility], 19th Floor [address] [place] [address] Apt confirmed-EH documented as of this encounter Visit Diagnoses Diagnosis Kidney transplanted Kidney replaced by transplant documented in this encounter Additional Health Concerns Infection Onset Date Last Indicated Resolved Time COVID-19 Comment:Tested + on 09/0109/01/2020 09/05/2020 09/25/2020 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
--- OUTSIDE RECORDS SUMMARY | 2025-08-09 10:28 | XMS_ITS | Encounter Summary ---
Author Organization [facility] Address [address] [place] [address] Care Team Providers Care Group Sales Manager Name Role Phone Juan Laguerre MD Primary Care Provider [phone] Bro AWAN MD, Aubrey Lane Unavailable [phone] Jaki Nieves PhD Unavailable [phone] Source Comments In the event that this is information that is protected by federal Confidentiality of Substance User Disorder Patient Records, 42 CFR Part 2 prohibits the unauthorized disclosure of these records.[facility] Encounter Details Date Type Department Care Team (Latest Contact Info) Description 07/16/2018 Prep for Procedure NM Transplant Surgery [address] [facility], 19th Floor [address] [place], [place] [address] Rell Painting MD [address] [facility] [address] [address] Adenocarcinoma of pancreas (Primary Dx) Social History [...] [address] [facility], 19th Floor [address] [place] [address] Apt confirmed-EH documented as of this encounter Visit Diagnoses Diagnosis Adenocarcinoma of pancreas (CMS-HCC)- Primary Malignant neoplasm of pancreas, part unspecified documented in this encounter Additional Health Concerns Infection Onset Date Last Indicated Resolved Time COVID-19 Comment:Tested + on 09/0109/01/2020 09/05/2020 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
--- OUTSIDE RECORDS SUMMARY | 2025-08-09 10:28 | XMS_ITS | Encounter Summary ---
Author Organization [facility] Address [address] [place] [address] Care Team Providers Care Baggage Agent Supervisor Name Role Phone Juan Laguerre MD Primary Care Provider [phone] Bro AWAN MD, Aubrey Lane Unavailable [phone] Jaki Nieves PhD Unavailable [phone] Source Comments In the event that this is information that is protected by federal Confidentiality of Substance User Disorder Patient Records, 42 CFR Part 2 prohibits the unauthorized disclosure of these records.[facility] Encounter Details Date Type Department Care Team (Late st Contact Info) Description 09/15/2018 Orders Only NM Transplant Surgery [address] [facility], 19th [address] [place], [place] [address] Noe Keyes MD [address] [facility] [address], [place] [address] Social History Tobacco Use Types Packs/Day Years [...] Office Visit [place] Transplant Surgery [address] [facility], 19th [address] [place] [address] Apt confirmed-EH documented as of this encounter Visit Diagnoses Diagnosis Kidney transplanted Kidney replaced by transplant documented in this encounter Additional Health Concerns Infection Onset Date Last Indicated Resolved Time COVID-19 Comment:Tested + on 09/0109/01/2020 09/05/2020 09/25/2020 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
--- OUTSIDE RECORDS SUMMARY | 2025-08-09 10:28 | XMS_ITS | Encounter Summary ---
Author Organization [facility] Address [address] [place] [address] Phone Care Team Providers Care Pattern Stamper Name Role Phone Juan Laguerre MD Primary Care Provider [phone] Rell Painting MD Unavailable [phone] Bro AWAN MD, James L Unavailable [phone] Jez Denson MD Unavailable Cathleen Gallegos MD Unavailable Vikram Garza MD Unavailable [phone] Treva Edwards MD Unavailable [phone] Sanchez Bills DPM Unavailable [phone] Encounter Details Date Type Department Care Team (Latest Contact Info) Description 12/20/2020 Transcribe Orders [facility] Laboratory Services [address] [place] [address] Cathleen Gallegos MD [address] [address] Lipid disorder (Primary Dx); Kidney replaced by [...] COVID-19? No / Unsure 12/10/2020 6:16 AM CARE AIDE documented as of this encounter Plan of Treatment Upcoming Encounters Date Type Department Care Team (Late st Contact Info) Description 08/10/2025 12:45 PM CDT Lab [facility] [address] [id number] Lab, [facility] 08/10/2025 1:00 PM CDT Ancillary Procedure [facility] [address] [phone] 08/17/2025 9:00 AM CDT Office Visit [facility] [address] [id number] Tyler Haile MD [address] [place] [address] documented as of this encounter Results * VITAMIN D, 25 HYDROXY TOTAL (01/07/2021 6:48 AM CARE AIDE) VITAMIN D, 25 HYDROX 25 ng/mL 01/07/2021 7:48 AM CARE AIDE [facility] Blood Venipuncture / Unknown 01/07/2021 6:48 AM CARE AIDE 01/07/2021 6:52 AM CARE AIDE Narrative [facility] - 01/07/2021 7:48 AM CARE AIDE Adult 21 years and up Deficiency <20 ng/ml Insufficient 20 - <30 ng/ml Sufficiency 30 - 100 ng/ml Cathleen Gallegos MD CHEMISTRY ORDERABLES Final Resul t Performing Organization Address [facility] [place] [address] * (ABNORMAL) PARATHYROID HORMONE PTH INTACT (01/07/2021 6:48 AM CARE AIDE) PTH INTACT 95(H) 14 - 72 pg/mL 01/07/2021 7:44 AM [facility] Comment: PLEASE NOTE: As of January 30, [...] Blood Venipuncture / Unknown 01/07/2021 6:48 AM CARE AIDE 01/07/2021 6:52 AM CARE AIDE Cathleen Gallegos MD CHEMISTRY ORDERABLES Final Resul t Performing Organization Address [facility] [place] [address] * (ABNORMAL) LIPID PANEL (01/07/2021 6:48 AM CARE AIDE) CHOLESTEROL 249(H) 0 - 199 mg/dL 01/07/2021 7:37 AM [facility] Comment: CHOL Interp. (mg/dl): Optimal: <200 Borderline High: 200-239 High: >239 TRIGLYCERIDES 371(H) 0 - 149 mg/dL 01/07/2021 7:37 AM [facility] Comment: TGL Interp. (mg/dl): Optimal: <150 Borderline High: 150-199 High: 200-499 Very High: >499 HDL CHOLESTEROL 39(L) 40 - 100 mg/dL 01/07/2021 7:37 AM [facility] Comment: HDL Interp. (mg/dl): Low: <40 Optimal: >60 LDL 136(H) <130 mg/dL 01/07/2021 7:37 AM CARE AIDE [facility] Comment: LDL-C Interp. (mg/dl): Optimal: <100 Near or above optimal: 100-129 Borderline High: 130-159 High: 160-189 Very high: >189 Please note revised interpretive criteria based on NCEP ATP III classification, effective Dec 24, 2007. Blood Venipuncture / Unknown 01/07/2021 6:48 AM CARE AIDE 01/07/2021 6:52 AM CARE AIDE us Cathleen Gallegos MD CHEMISTRY ORDERABLES Final Resul t [facility] [address] [place] [address] documented in this encounter Visit Diagnoses Diagnosis Lipid disorder- Primary Unspecified disorder of lipoid metabolism 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 Vitamin D deficiency Unspecified vitamin D deficiency documented in this encounter Additional Health Concerns Assessment Noted Time PHQ-9 Depression Total Score: 0 08/23/20 11:09 AM CDT documented as of this encounter Care Teams Pattern Stamper Relationship Specialty Start Date End Date Juan Laguerre MD [address] [place] [address] [place] [address] PCP - General Family Medicine 10/05/16 Rell Painting MD [address] [facility] 19TH COUNT INCLUDES THE [facility] [address] [place] [address] Consulting Physician General Surgery 10/22/18 Aubrey Crabtree III, MD [address] [facility] [address] [place] [address] Medical Oncologist Internal Medicine 11/06/18 Jez Denson MD [address] [facility] [place] [phone] Consulting Physician Cardiovascular Disease - Cardiology 01/19/19 Cathleen Gallegos MD [address] [address] Consulting Physician Nephrology 01/19/19 Vikram Garza MD [address] [address] Consulting Physician Cardiovascular Disease - Cardiology 01/19/19 Treva Edwards MD [address] [place] [id number] Consulting Physician Internal Medicine 08/31/20 Sanchez Bills DPM [facility] [address] [address] Consulting Physician Podiatry 08/31/20 documented as of this encounter
--- OUTSIDE RECORDS SUMMARY | 2025-08-09 10:28 | XMS_ITS | Encounter Summary ---
Author Organization [facility] Address [address] [place] [address] Care Team Providers Care Echocardiograph Tech Name Role Phone Juan Laguerre MD Primary Care Provider [phone] Bro AWAN MD, Aubrey Lane Unavailable [phone] Jaki Nieves PhD Unavailable [phone] Source Comments In the event that this is information that is protected by federal Confidentiality of Substance User Disorder Patient Records, 42 CFR Part 2 prohibits the unauthorized disclosure of these records.[facility] Encounter Details Date Type Department Care Team ([facility] Contact Info) Description 07/14/2025 Results Follow-Up [place] Transplant Surgery [address] [facility], 19th Floor [address] [place] [address] Joycelyn Quintero RN Social History Tobacco Use [...] [address] [place], [place] [address] Apt confirmed-EH documented as of this encounter Visit Diagnoses Not on filedocumented in this encounter Care Teams Echocardiograph Tech Relationship Specialty Start Date End Date Juan Laguerre MD [address] [facility] [address], [place] [phone] PCP - General Family Medicine 01/02/18 Aubrey Crabtree III, MD [address] [facility] [address] [place] [address] Hematology and Medical Oncology 10/01/18 Jaki Nieves, PhD [address] [facility] [address] [place], [place] [address] Genetic Counseling 11/27/18 documented as of this encounter
--- OUTSIDE RECORDS SUMMARY | 2025-08-09 10:28 | XMS_ITS | Encounter Summary ---
Author Organization [facility] Address [address] [place] [address] Phone Care Team Providers Care Check Clerk Name Role Phone Juan Laguerre MD Primary Care Provider [phone] Rell Painting MD Unavailable [phone] Bro AWAN MD, Aubrey Ellis Unavailable [phone] Jez Denson MD Unavailable Cathleen Gallegos MD Unavailable Vikram Garza MD Unavailable [phone] Treva Edwards MD Unavailable [phone] Sanchez Bills DPM Unavailable [phone] Encounter Details Date Type Department Care Team (Latest Contact Info) Description 06/06/[address] [facility] Laboratory Services [address] [place] [address] Edwin Del Toro MD [address] [facility] [address] [place] [address] Liver replaced by transplant (HCC) (Primary Dx); [...] 12:45 PM CDT Lab [facility] [address] [id number] Lab, [facility] 08/10/2025 1:00 PM CDT Ancillary Procedure [facility] [address] [phone] 08/17/2025 9:00 AM CDT Office Visit [facility] [address] [phone] Tyler Haile MD [address] [place] [address] documented as of this encounter Results * PHOSPHORUS (PO4) (06/20/2021 12:46 PM CDT) Phosphorous 3.2 2.5 - 4.6 mg/dL [facility] Blood 06/20/2021 12:4 6 PM CDT Narrative [facility] - 06/20/2021 2:18 PM CDT Release to patient->Immediate Edwin Del Toro MD CHEMISTRY ORDERABLES Final Result CANCER MANAGER OF HUM[employer] RESOURCES [facility] [place] [address], * (ABNORMAL) CMP (COMPREHENSIVE METABOLIC PANEL) (06/20/2021 12:46 PM CDT) Glucose 150(H) 70 - 105 mg/dL [facility] Blood Urea Nitrogen 32(H) 7 - 25 mg/dL [facility] Creatinine 1.6(H) 0.7 - 1.3 mg/dL [facility] Sodium 136 136 - 145 mEq/L [facility] Potassium 5.0 3.5 - 5.1 mEq/L [facility] Chloride 103 98 - 107 mEq/L [facility] Bicarbonate 27 21 - 31 mEq/L [facility] Total Bilirubin 0.4 0.3 - 1.0 mg/dL [facility] Alk. Phosphatase 75 34 - 104 U/L [facility] Aspartate Aminotransferase 18 13 - 39 U/L [facility] Alanine Aminotransferase 14 7 - 52 U/L [facility] Total Protein 6.8 6.4 - 8.9 g/dL [facility] Albumin 3.9 3.5 - 5.7 g/dL [facility] Calcium 9.7 8.6 - 10.3 mg/dL [facility] Anion Gap 11.0 7.0 - 15.0 mEq/L [facility] Globulin 2.9 2.0 - 3.5 g/dL [facility] EGFR (Non ) 44.2(L) >60.0 ml/min [facility] EGFR () 53.5(L) >60.0 ml/min [facility] Blood 06/20/2021 12:4 6 PM CDT Narrative [facility] - 06/20/2021 2:18 PM CDT IS THE PATIENT REQUIRED TO BE FASTING FOR 8 HOURS?->No Release to patient->Immediate Edwin Del Toro MD CHEMISTRY ORDERABLES Final Result Performing Organization Address City/[facility]/ZIP Co de Phone Number CANCER MANAGER OF HUMAN RESOURCES [facility] [place] [address], [place] [phone] * (ABNORMAL) VITAMIN D, 25 HYDROXY TOTAL (06/20/2021 12:46 PM CDT) 25() Vitamin D, Total 27.0(L) 30.0 - 100.0 ng/mL [facility] HUM[employer] RESOURCES [facility] Comment: The Clinical Guidelines [...] CHEMISTRY ORDERABLES Final Result Performing Organization Address [facility] Co de Phone Number [facility] [place] [address], [place] [phone] * PARATHYROID HORMONE PTH INTACT (06/20/2021 12:46 PM CDT) PTH, INTACT 23 15 - 65 PG/ML [facility] Blood 06/20/2021 12:4 6 PM CDT Narrative [facility] - 06/21/2021 10:07 AM CDT TESTING PERFORMED AT: [] [address], [address], PHONE: [phone], CARBONATOR: RAEGAN ROSALES, PHD Release to patient->Immediate Edwin Del Toro MD CHEMISTRY ORDERABLES Final Result Performing Organization Address City/[facility]/ZIP Co de Phone Number [facility] * (ABNORMAL) LIPID PANEL (06/20/2021 12:46 PM CDT) Cholesterol 234(H) 0 - 200 mg/dL [facility] MA[facility] H[employer]OURCES [facility] Triglyceride 387(H) 0 - 150 mg/dL [facility] MANA[facility] OF H[employer]OURCES [facility] HDL 40 23 - 92 mg/dL [facility] MANAGER OF H[employer]OURCES [facility] LDL 117 0 - 130 mg/dL [facility] [facility] Cholesterol /HDL Ratio 5.85(H) 0.00 - 4.44 [facility] H[employer]OURCES [facility] Blood 06/20/2021 12:4 6 PM CDT Narrative [facility] MANAGER OF HUM[employer]OURCES [facility] - 06/20/2021 2:18 PM CDT Is the patient fasting? Not fasting us Edwin Del Toro MD CHEMISTRY ORDERABLES Final Result [facility]CER MANAGER OF HUM[employer] RESOURCES [facility] [place] [address], * (ABNORMAL) COMPLETE BLOOD COUNT (CBC) WITH DIFF (06/20/2021 12:46 PM CDT) WBC 8.7 4.0 - 10.0 10*3/uL [facility] MANAGER OF HUM[employer] RESOURCES [facility] HGB 16.1 13.7 - 17.5 g/dL [facility] MANAGER OF H[employer]OURCES [facility] HCT 52.9(H) 40.1 - 51.0 % CAN[facility]ER MANAGER OF HUM[employer] RESOURCES [facility] PLT 146(L) 163 - 369 10*3/uL [facility]ER MANAGER OF HUM[employer] RESOURCES [facility] MPV 10.3 9.4 - 12.4 fL [facility] MANA[facility] H[employer]OURCES [facility] RBC 6.60(H) 4.63 - 6.08 10*6/uL CAN[facility]ER MANAGER OF H[employer] RESOURCES [facility] MCV 80 79 - 95 fL [facility] MANAGER OF H[employer]OURCES [facility] MCH 24.4(L) 25.6 - 32.2 pg [facility] MANAGER OF HUM[employer] RESOURCES [facility] MCHC 30.4(L) 32.2 - 36.5 g/dL [facility] MANAGER OF H[employer] RESOURCES [facility] RDW 19.6(H) 11.6 - 14.4 % CANCER MANAGER OF HUM[employer] RESOURCES [facility] Absolute Neutrophil Count 2,941 cells/uL [facility] Absolute Seg Count 2,941 1,440 - 6,600 cells/uL CAN[facility]ER MANAGER OF HUM[employer]OURCES [facility] Absolute Lymph Count 4,585(H) 760 - 4,000 cells/uL [facility] Absolute Dawes Count 865 160 - 1,200 cells/uL CANCER MANAGER OF HUM[employer] RESOURCES [facility] Absolute Eos Count 173 0 - 300 cells/uL CANCER MANAGER OF HUM[employer] RESOURCES [facility] Absolute Baso Count 87 0 - 100 cells/uL [facility] MANAGER OF H[employer]OURCES [facility] Segmented Neutrophils 34(L) 36 - 66 % CANCER MANAGER OF H[employer] RESOURCES [facility] Lymphocytes 53(H) 19 - 40 % [facility] Monocytes 10 4 - 12 % CAN[facility]ER [facility] [address] [facility] Eosinophils 2 0 - 3 % [facility] Basophils 1 0 - 1 % [facility] WBC Estimate Normal [facility]CER MANAGER OF HUM[employer]OURCES [facility] Platelet Estimate Low CA NCER MANAGER OF HUMAN RESOURCES [facility] RBC Morphology Abnormal CANCE R MANAGER OF HUMAN RESOURCES [facility] Hypochromasia 1+ CANCER MANAGER OF HUM[employer] RESOURCES [facility] Anisocytosis 2+ CANCER MANAGER OF HUM[employer] RESOURCES [facility] Blood 06/20/2021 12:4 6 PM CDT Narrative [facility] - 06/20/2021 2:59 PM CDT Release to patient->Immediate us Edwin Del Toro MD HEMATOLOGY ORDERABLES Final Result CANCER MANAGER OF HUM[employer] RESOURCES [facility] [place] [address], documented in this encounter Visit Diagnoses Diagnosis Liver replaced by transplant- Primary 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 Kidney replaced by transplant documented in this encounter Additional Health Concerns Assessment Noted Time PHQ-9 Depression Total Score: 0 02/15/20 21 11:29 AM CDT documented as of this encounter Care Teams Check Clerk Relationship Specialty Start Date End Date Juan Laguerre MD [address] [place] [address] [place] [address] PCP - General Family Medicine 10/05/16 Rell Painting MD [address] [facility] [address] [facility] [address] [place] [address] Consulting Physician General Surgery 10/22/18 Aubrey Crabtree III, MD [address] [address] Medical Oncologist Internal Medicine 11/06/18 Jez Denson MD [address] [facility] [place] [address] Consulting Physician Cardiovascular Disease - Cardiology 01/19/19 Cathleen Gallegos MD [address] [address] Consulting Physician Nephrology 01/19/19 Vikram Garza MD [facility] N [address] [address] Consulting Physician Cardiovascular Disease - Cardiology 01/19/19 Treva Edwards MD [address] [place] [id number] Consulting Physician Internal Medicine 08/31/20 Sanchez Bills DPM [address] [facility] [address] [place] [address] Consulting Physician Podiatry 08/31/20 documented as of this encounter
--- OUTSIDE RECORDS SUMMARY | 2025-08-09 10:28 | XMS_ITS | Encounter Summary ---
Author Organization [facility] Address [address] [place] [address] Care Team Providers Care Technology Support Analyst Name Role Phone Juan Laguerre MD Primary Care Provider [phone] Bro AWAN MD, Aubrey Lane Unavailable [phone] Jaki Nieves PhD Unavailable [phone] Source Comments In the event that this is information that is protected by federal Confidentiality of Substance User Disorder Patient Records, 42 CFR Part 2 prohibits the unauthorized disclosure of these records.[facility] Encounter Details Date Type Department Care Team (Latest Contact Info) Description 07/14/2018 FS Transcribe Orders [place] Transplant Surgery [address] [facility], 19th [address] [place], [place] [address] Rell Painting MD [address] [facility] [address], [place] [address] Acute pancreatitis, unspecified complication status, unspecified pancreatitis [...] Office Visit [place] Trans[facility] [address] [facility] [place] [address] Apt confirmed-EH documented as of this encounter Visit Diagnoses Diagnosis Acute pancreatitis, unspecified complication status, unspecified pancreatitis type- Primary documented in this encounter Additional Health Concerns Infection Onset Date Last Indicated Resolved Time COVID-19 Comment:Tested + on 09/0109/01/2020 09/05/2020 09/25/2020 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
--- OUTSIDE RECORDS SUMMARY | 2025-08-09 10:28 | XMS_ITS | Clinical Summary ---
Author Organization [facility] Address [address] [place] [address] Care Team Providers Care Superintendent Drivers Name Role Phone Juan Laguerre MD Primary Care Provider [phone] Bro AWAN MD, Aubrey Lane Unavailable [phone] Jaki Nieves PhD Unavailable [phone] Source Comments In the event that this is information that is protected by federal Confidentiality of Substance UseDisorder Patient Records, 42 CFR Part 2 prohibits the unauthorized disclosure of these records.[facility] Allergies No known active allergies Medications CALCIUM [...] Active lancets (ONETOUCH DELICA LANCETS) 30 gauge [facility] 120 [place] by [facility]. (Non-Drug;Combo Route) route 4 (four) times daily. 120 Needle 018 Active Insulin [place], Disposable, (MATEUS PEN NEEDLE) 32 gauge x [...] replaced by transplant,Li ivan replaced by transplant ([facility]) Take 2 tablets by mouth BID 6A & 6P. 360 tablet 3 025 Active sulfamethoxaz ole-trimethop rim 400-80 mg per tabletIndicat ions:Kidney replaced by transplant,Li ivan replaced by transplant ([facility]) Take 1 tablet by mouth every Saturday, Saturday, Saturday. 36 tablet 3 025 Active everolimus, immunosuppres sive, 0.5 mg TabletIndicat ions:Kidney replaced by transplant,Li ivan replaced by transplant ([facility]) Take 3 tablets by mouth 2 (two) times daily. 540 tablet 3 025 Active sulfamethoxaz ole-trimethop rim 400-80 mg per tabletIndicat ions:Liver replaced by transplant ([facility]),Kid karen replaced by transplant Take 1 tablet by mouth every Saturday, Saturday, Saturday. 36 tablet 3 025 2024 Discontinued(R eorder) mycophenolate sodium 180 mg tablet,delaye d release (DR/EC)Indica tions:Liver replaced by transplant ([facility]),Kid karen replaced by transplant Take 2 tablets by mouth BID 6A & 6P. 360 tablet 3 025 2024 Discontinued(R eorder) everolimus, immunosuppres sive, 0.5 mg TabletIndicat ions:Liver replaced by transplant ([facility]),Kid karen replaced by transplant [...] ethyl therapy instead of fenofibrate due to skilled nursing risks to the kidney and liver. Assessment & Plan (10/05/2022 11:46 AM HARDWARE ASSEMBLER): Recommended more aggressive control. 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 Health [...] (12/22/2018): Added automatically from request for surgery [id number] Metabolic alkalosis 12/06/2018 Assessment & Plan (12/11/2018 6:22 PM HARDWARE ASSEMBLER): Contraction from diuresis. Stable. Moderate dose of diuretics may be necessary and acceptable. Monitor daily serum bicarbonate. Aortic stenosis 12/05/2018 Assessment & Plan (12/07/2018 10:26 AM HARDWARE ASSEMBLER): Cardiology management. Atrial fibrillation 12/04/2018 Assessment & Plan (12/07/2018 10:27 AM HARDWARE ASSEMBLER): Cardiology management. Rate control may not be effective in the setting of hypotension. On systemic anticoagulation. 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 Continue to monitor. Anemia 11/27/2018 Assessment & Plan (12/09/2018 8:22 PM HARDWARE ASSEMBLER): Stable. Below goal hemoglobin 10-11 g/dL, transfuse prn < 7 g/dL. Monitor daily. No role for recombinant erythropoietin in this acute setting. Assessment & Plan (11/27/2018 5:09 PM HARDWARE ASSEMBLER): Low MCV, so likely iron deficient. Check iron studies with next lab draw locally and discuss with Medical Oncologist re treatment/further w/up. 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 Assessment & Plan (10/05/2022 11:44 AM HARDWARE ASSEMBLER): Continue SMZ/TMP M/W/F. Assessment & Plan (08/09/2021 11:29 AM CDT): Continue SMZ/TMP M/W/F. Assessment & Plan (08/11/2020 11:00 PM CDT): Continue SMZ/TMP M/W/F. Assessment & Plan (07/29/2019 11:12 AM CDT): Continue SMZ/TMP M/W/F. Assessment & Plan (03/02/2019 1:28 PM CDT): Continue SMZ/TMP M/W/F. Assessment & Plan (12/31/2018 9:38 AM HARDWARE ASSEMBLER): Continue SMZ/TMP M/W/F. Assessment & Plan (12/20/2018 4:25 PM HARDWARE ASSEMBLER): Continue bactrim MWF for PJP prophylaxis Assessment & Plan (12/01/2018 5:32 PM HARDWARE ASSEMBLER): Continue SMZ/TMP M/W/F. Assessment & Plan (11/04/2018 3:32 PM HARDWARE ASSEMBLER): Continue Bactrim Saturday for prophylaxis Assessment & Plan (09/08/2018 1:19 PM HARDWARE ASSEMBLER): Continue SMZ/TMP M/W/F. History of partial pancreatectomy [...] levels. Assessment & Plan (10/05/2022 11:43 AM HARDWARE ASSEMBLER): Immunosuppressive drug therapy requiring intensive monitoring for [...] levels. Assessment & Plan (12/31/2018 9:38 AM HARDWARE ASSEMBLER): Continue FK/MPA. Plan conversion back to everolimus once adequate recovery from TAVR. Monitor FK (goal 3-5) and MPA (goal 1.5-2.5) trough levels. Assessment & Plan (12/20/2018 4:24 PM HARDWARE ASSEMBLER): Continue tacrolimus (low goal up to 3), myfortic 360 mg bid. Check tacrolimus trough levels. Assessment & Plan (12/10/2018 7:40 PM HARDWARE ASSEMBLER): Continue FK/MPA. Consider conversion to sirolimus now recovered from surgery, once medically stable. Monitor daily FK (essentially at goal 4-6) and MPA (at goal 1.5-2.5) trough levels. Assessment & Plan (11/27/2018 5:07 PM HARDWARE ASSEMBLER): Converted off everolimus to tacrolimus at the time of Whipples procedure. Continue MPA/FK. Monitor FK (goal 3-5) and MPA (goal 1.5-2.5) trough levels. Review possible conversion back to EVL in 6 months. Assessment & Plan (11/05/2018 5:14 PM HARDWARE ASSEMBLER): Continue tacrolimus 1 mg twice daily with goal of 5-7 ng/mL for a 12-hour trough level. Continue mycophenolate sodium 360 mg twice daily Prednisone was recently stopped after surgery. Given new orthostatic symptoms could consider repeat cortisol stimulation testing Assessment & Plan (09/08/2018 1:18 PM HARDWARE ASSEMBLER): Converted to FK/MMF/low dose prednisone regimen. Minimize [...] course. 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 Plan conversion of FK back to everolimus once recovered from TAVR. Assessment & Plan (11/27/2018 5:12 PM HARDWARE ASSEMBLER): s/p Whipple procedure and splenectomy in 08/2018. Now having chemotherapy. Assessment & Plan (09/08/2018 1:19 PM HARDWARE ASSEMBLER): Pending pathology. Pancreatic duct dilated 07/02/2018 Overview (07/02/2018): Added automatically from request for surgery [id number] Vision loss of right eye 01/27/2018 Hypertension, essential 01/27/2018 Assessment & Plan (08/11/2020 11:02 PM CDT): Goal < 130/80, continue present regimen. Candidate for ACEi/ARB if blood pressure worsens. Assessment & Plan (12/31/2018 9:40 AM HARDWARE ASSEMBLER): At goal < 130/80, continue present regimen. Assessment & Plan (12/11/2018 6:22 PM HARDWARE ASSEMBLER): Maintain SBP > 100 if possible from a kidney standpoint to maximize recovery, presently at goal. Assessment & Plan (09/08/2018 1:19 PM HARDWARE ASSEMBLER): At goal < 140/90, presently off therapy. Assessment & Plan (08/07/2018 5:57 PM CDT): At goal < 140/90, continue present regimen. Peripheral neuropathy 01/27/2018 Vitreous hemorrhage of right eye 01/27/2018 Chronic kidney disease, stage 3a 08/02/2015 Assessment & Plan (12/31/2018 9:39 AM HARDWARE ASSEMBLER): Monitor calcium, phosphorus, PTH, vitamin D, and anemia labs. Assessment & Plan (12/01/2018 5:31 PM HARDWARE ASSEMBLER): Outpatient monitoring of calcium, phosphorus, PTH, 25-OH vit D, and anemia. Assessment & Plan (09/08/2018 1:19 PM HARDWARE ASSEMBLER): Stable. Outpatient monitoring of calcium, phosphorus, PTH, [...] screening. Assessment & Plan (10/05/2022 11:43 AM HARDWARE ASSEMBLER): SLK. With chronic kidney disease stage 3a, [...] screening. Assessment & Plan (12/31/2018 9:37 AM HARDWARE ASSEMBLER): Acute kidney failure resolved, back to baseline good function. Monitor serum creatinine, proteinuria, and BK viral load screening. Assessment & Plan (12/23/2018 5:48 PM HARDWARE ASSEMBLER): Status post remote renal transplant - baseline renal function around 1.3 mg/dl - currently close to baseline Received IVF post contrast exposure, Assessment & Plan (12/01/2018 5:30 PM HARDWARE ASSEMBLER): s/p SLK. With chronic kidney disease stage 3. Monitor daily serum creatinine. Assessment & Plan (11/27/2018 5:05 PM HARDWARE ASSEMBLER): S/p SLT transplant. Good allograft function. Monitor serum creatinine, proteinuria, and BK viral load screening. Assessment & Plan (11/04/2018 3:31 PM HARDWARE ASSEMBLER): Status post remote donor renal transplant simultaneous liver transplant 10 years ago. Mild acute kidney injury last week but now returned to baseline at 1.1 mg/dL. Continue to monitor renal function while in house Assessment & Plan (09/08/2018 1:17 PM HARDWARE ASSEMBLER): Stable function after conversion to tacrolimus. Monitor serum creatinine, proteinuria, and BK viral load screening. Assessment & Plan (08/07/2018 5:54 PM CDT): Good allograft function. Monitor serum creatinine, proteinuria, and BK viral load screening. Liver transplant 01/02/2008 01/02/2008 Assessment & Plan (07/15/2024 2:20 PM CDT): Doing well overall. Recently moved to [place], [place]. Liver tests are normal. Following with Dr. Gallegos for kidney transplant. Following with cardiology, recently started statin for elevated cholesterol. 6 years from pancreatic cancer. Following with oncologist at [facility]. Follow up CT scheduled. Plan: Continue current [...] LFTs. Assessment & Plan (09/08/2018 1:17 PM HARDWARE ASSEMBLER): Continue follow up with Hepatology. Monitor liver transaminases. Type II diabetes mellitus with complication 04/2008 Assessment & Plan (07/13/2025 1:03 PM CDT): Uncontrolled. Reinforced importance of good glycemic control. Continue follow up with canvass manager, started on SGLT2 inhibitor. Monitor fasting glucose and A1C. Assessment & Plan (07/16/2024 4:52 PM CDT): Uncontrolled. Reinforced importance of good glycemic control. Continue follow up with canvass manager, to discuss SGLT2 inhibitors and GLP-1 agonists. Monitor fasting glucose and A1C. Assessment & Plan (07/31/2023 9:59 AM CDT): Uncontrolled. Reinforced importance of good glycemic control. Continue follow up with canvass manager, to discuss SGLT2 inhibitors and GLP-1 agonists. Monitor fasting glucose and A1C. Assessment & Plan (10/05/2022 11:45 AM HARDWARE ASSEMBLER): Uncontrolled. Reinforced importance of good glycemic control. Continue follow up with canvass manager. Monitor fasting glucose and A1C. Assessment & Plan (08/09/2021 11:32 AM CDT): Continue follow up with canvass manager. Monitor fingerstick and fasting glucose, and A1C. Assessment & Plan (08/11/2020 11:01 PM CDT): Uncontrolled. Recommended to increase insulin dose, follow up with PCP/canvass manager. Monitor fingerstick and fasting glucose, and A1C. Assessment & Plan (07/31/2019 10:59 AM CDT): Recommended to increase insulin dose, follow up with PCP/canvass manager. Monitor fingerstick and fasting glucose, and A1C. Assessment & Plan (12/31/2018 9:41 AM HARDWARE ASSEMBLER): Reinforced importance of improved glycemic control, patient is scheduled to see his canvass manager. Continue present regimen. Monitor fingerstick and fasting glucose, and A1C. Assessment & Plan (12/01/2018 5:33 PM HARDWARE ASSEMBLER): Endocrinology consultation. Monitor fingerstick glucose and cover with ISS. Assessment & Plan (09/08/2018 1:20 PM HARDWARE ASSEMBLER): Controlled. Resume outpatient monitoring by canvass manager. Continue insulin regimen. Monitor fingerstick and fasting [...] Department Care Team Description 07/14/2025 Results Follow-Up [place] [facility] [address] [facility] [place] [address] Joycelyn Quintero RN 07/13/2025 7:00 AM CDT Ancillary Procedure [facility] [address] [place] [address] Cathleen Gallegos MD Immunosuppression due to drug therapy; Administration of long-term prophylactic antibiotics; Type II diabetes mellitus with complication (CMS-HCC); Kidney replaced by transplant; 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); Protein screening; Encounter for monitoring immunomodulating therapy; Kidney transplant 01/02/2008 07/13/2025 Telephone [place] [facility] [address] [facility] [place] [address] Karen Cannon Appointment 07/12/2025 1:00 PM CDT Office Visit [place] [facility] [address] [facility] [place] [address] Onelia Alamo, CELL INSPECTOR, FRONT DESK ADMINISTRATOR 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) (Primary Dx); Immunosuppression; Administration of long-term prophylactic antibiotics; 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; Type II diabetes mellitus with complication (CMS-HCC); Kidney transplant 01/02/2008; Hypertension, essential 07/12/2025 10:40 AM CDT Office Visit [place] [facility] [address] [facility] [place] [address] Cathleen Gallegos MD Immunosuppression due to drug [...] [facility] [place] [address] Cathleen Gallegos MD 06/22/2025 Orders Only [place] [facility] [address] [facility] [place] [address] Noe Keyes MD 06/14/2025 Orders Only [place] [facility] [address] [facility] [place] [address] Cathleen Gallegos MD 05/27/2025 Orders Only [place] [facility] [address] [facility] [place] [address] Noe Keyes MD 05/17/2025 Orders Only [place] [facility] [address] [place] [address] Cathleen Gallegos MD 05/10/2025 Orders Only [place] [facility] [address] [facility] [place] [address] Colleen Christy from Last 3 Months Immunizations [...] [facility] [place] [address] Apt confirmed- Health Maintenance Due Date Last [...] history exists Medical Devices Implanted Type Area Warehouse Administrator Device Identifier Shelf Expiration Date Model / Serial / Lot Poly 3 Transcatheter Aortic Valve 29mm - [id number] - [id number] Implanted:Qty: 1 on 12/25/2018 by Aldo Bronson MD at [facility] TRANSCATHETER AORTIC VALVE REPL (TAVR) AORTIC VALVE [employer] 09/17/2020 [id number] / [id number] / Procedures Procedure Name Priority Date/Time Associated [...] CHEST WO CONTRAST Routine 11/30/2018 5:53 PM HARDWARE ASSEMBLER OTTR HISTORICAL LAB Routine 03/23/2015 5 :31 AM CDT HIV 1 \T\ 2 ANTIBODY STAT 01/01/2008 2:50 PM HARDWARE ASSEMBLER HEPATITIS C ANTIBODY (WITHOUT CONFIRMATION) STAT 01/01/2008 2:50 PM HARDWARE ASSEMBLER PSA, TOTAL (SCREENING ONLY) Routine 12/11/2007 12:00 PM HARDWARE ASSEMBLER from Last 3 Months or Most Recently Relevant to Health Maintenance Results * (ABNORMAL) BK Virus Quant Viral Load, Urine (07/13/2025 6:57 AM CDT) Pathologist [facility] BKV, urine Detected (A) Not Detected 07/14/2025 4:11 PM CDT [facility] BKV Target 14,400.0 0 IU/mL 07/14/2025 4:11 PM CDT [facility] Comment:The BK Virus (BKV) Q uantitative PCR, Urine assay is approved by the Food and Drug Administration (FDA) for urine using the tierra(TM) 8800 system, and its performance characteristics have been verified by the [facility]. The assay detects BKV DNA [...] Cathleen Gallegos MD URINE ORDERABLES Final Result [facility] Aly[address]ett [address] [place] [address] * Everolimus, LC/MS (07/13/2025 6:57 AM CDT) Only the most recent of3 resultswithin the time period is included. Pathologist [facility] Everolimus, LC/MS 5.5 ng/mL 025 3:46 PM CDT [facility] Comment: Unable to flag abnormal result(s), please refer to reference range(s) below: Trough: 3.0 - 8.0 ng/mL for Transplantation Trough: 5.0 - 10.0 ng/mL for Oncology/Neurology Symptoms of toxicity are more likely to occur at trough levels exceeding 12.0 ng/mL. This test was developed and its analytical performance characteristics have been determined by [employer]. It has not been cleared or approved by the FDA. This assay has been validated pursuant to the CLIA regulations and is used for clinical purposes. Blood VEIN SPECIMEN / Unknown Blood Collection / Unknown 07/13/2025 6:57 AM CDT 07/13/2025 7:15 AM CDT Narrative [facility] - 07/14/2025 3:46 PM CDT Performing Organization Information: Site ID: [id number] Name: [facility] Address: [address] [place] [id number] Director: Sander Domínguez us Cathleen Gallegos MD LAB SEND OUT ORDERABLES Final Re sult [facility] [address] [place] [id number] * Mycophenolic Acid (07/13/2025 6:57 AM CDT) [facility] Mycophenolic Acid, [place] 2.0 2.0 - 4.0 g/mL 07/13/2025 8:10 AM CDT [facility] Comment: Therapeutic range applies to trough level. Optimal ranges depend upon transplant type and co-administered drugs, as well as the patient's clinical state. The test method is an automated enzymatic immunoassay performed on the [employer] platform. Blood VEIN SPECIMEN / Unknown Blood Collection / Unknown 07/13/2025 6:57 AM CDT 07/13/2025 7:13 AM CDT us Cathleen Gallegos MD CHEMISTRY ORDERABLES Final Resul t Performing Organization Address City/[facility]/ZIP Co de Phone Number [facility] [address] [place] [address] [place] [id number] * Protein/Creatinine Ratio, Urine (07/13/2025 6:57 AM CDT) Only the most recent of3 resultswithin the time period is included. Creatinine, Urine 71.8 mg/dL 07/13/2025 8:36 AM CDT [facility] Protein, Urine 10 0 - 10 mg/dL 07/13/2025 8:36 AM CDT [facility] Protein/Creati nine Ratio, Urine 0.14 mg/mg 07/13/2025 8:36 AM CDT [facility] Urine VOIDED URINE SPECIMEN / Unknown Non-blood Collection / Unknown 07/13/2025 6:57 AM CDT 07/13/2025 7:47 AM CDT Cathleen Gallegos MD URINE ORDERABLES Final Result Performing Organization Address [facility] Co de Phone Number [facility] [address] [address] [place] [id number] * BK Virus DNA Quant PCR, Blood (07/13/2025 6:57 AM CDT) BKV, Blood Not Detected Not Detected 07/13/2025 6:29 PM CDT [facility] BKV Target 07/13/2025 6:29 PM CDT [facility] Comment:The BK Virus (BKV) Q uantitative PCR, Blood assay is approved by the Food and Drug Administration (FDA) for EDTA plasma using the tierra(TM) 8800 system, and its performance characteristics have been verified by the [facility]. The assay detects BKV DNA [...] Gallegos MD IMMUNOLOGY ORDERABLES Final Resu lt [facility] Alysa Hackett [address] [place] [address] * (ABNORMAL) Urinalysis with Microscopic (07/13/2025 6:57 AM CDT) Only the most recent of3 resultswithin the time period is included. Color, Urine Light Yellow 07/13/2025 7:59 AM CDT [facility] Appearance, Urine Clear 07/13/2025 7:59 AM T [facility] Specific [place], Urine 1.012 1.005 - 1.030 07/13/2025 7:59 AM T [facility] pH, Urine 6.0 5.0 - 7.0 07/13/2025 7:59 AM T [facility] Protein, UA Negative Negative, 10 , 20 mg/dL 07/13/2025 7:59 AM T [facility] Glucose, Urine >1000(A) Normal mg/dL 07/13/2025 7:59 AM T [facility] Ketones, Urine Negative Negative mg/dL 07/13/2025 7:59 AM T [facility] Bilirubin, Urine Negative Negative 07/13/2025 7:59 AM T [facility] Blood, Urine Negative Negative 07/13/2025 7:59 AM T [facility] Nitrite, Urine Negative Negative 07/13/2025 7:59 AM T [facility] Leukocyte Esterase, Urine Negative Negative Yonathan/uL 07/13/2025 7:59 AM T [facility] Urobilinogen, Urine Normal Normal mg/dL 07/13/2025 7:59 AM T [facility] RBC, Urine 0-2 0 - 2 /hpf 07/13/2025 7:59 AM CDT [facility] WBC, Urine 0-5 0 - 5 /hpf 07/13/2025 7:59 AM CDT [facility] Bacteria, Urine None /hpf 07/13/2025 7:59 AM CDT [facility] Squamous Epithelial Cells, Urine None /hpf 07/13/2025 7:59 AM CDT [facility] Urine VOIDED URINE SPECIMEN / Unknown Non-blood Collection / Unknown 07/13/2025 6:57 AM CDT 07/13/2025 7:41 AM CDT us Cathleen Gallegso MD URINE ORDERABLES Final Result [facility] Alysa [address]ett [address] [place] [address] * (ABNORMAL) CBC with Differential (07/13/2025 6:57 AM CDT) Only the most recent of3 resultswithin the time period is included. WBC 16.9(H) 3.5 - 10.5 10 3/ L 07/13/2025 7:55 AM CDT [facility] RBC 7.03(H) (Based on documented legal sex) 4.30-5.80 10 6/ L 07/13/2025 7:55 AM T [facility] HGB 15.9 (Based on documented legal sex) 13.0-17.5 g/dL 07/13/2025 7:55 AM T [facility] HCT 52.1(H) (Based on documented legal sex) 38.0-50.0 % 07/13/2025 7:55 AM CDT [facility] MCV 74.1(L) 80.0 - 99.0 fL 07/13/2025 7:55 AM CDT [facility] MCH 22.6(L) 27.0 - 34.0 pg 07/13/2025 7:55 AM CDT [facility] MCHC 30.5(L) 32.0 - 35.5 g/dL 07/13/2025 7:55 AM T [facility] RDW 20.3(H) 11.0 - 15.0 % 07/13/2025 7:55 AM [facility] PLT 230 150 - 400 10 3/ L 07/13/2025 7:55 AM [facility] MPV 10.4 8.8 - 12.1 fL 07/13/2025 7:55 AM [facility] NRBC's 0.0 0.0 % 07/13/2025 7:55 AM [facility] Absolute NRBCs 0.0 No reference range established 10 3/ L 07/13/2025 7:55 AM [facility] Neutrophils 58.3 34.0 - 73.0 % 07/13/2025 7:55 AM [facility] Lymphocytes 25.7 15.0 - 50.0 % 07/13/2025 7:55 AM [facility] Monocytes 14.5 1.0 - 15.0 % 07/13/2025 7:55 AM [facility] Eosinophils 0.7 0.0 - 8.0 % 07/13/2025 7:55 AM [facility] Basophils 0.5 0.0 - 2.0 % 07/13/2025 7:55 AM [facility] Immature Granulocytes 0.3 No defined reference range % 07/13/2025 7:55 AM [facility] Comment:Immature Granulocyte s (IG) represents automated enumeration of Metamyelocytes, Myelocytes and Promyelocytes when IG is < 5%. Blasts are not included in IG and reported separately if present. Absolute Neutrophils 9.9(H) 1.5 - 8.0 10 3/ L 07/13/2025 7:55 AM [facility] Absolute Lymphocytes 4.3(H) 1.0 - 4.0 10 3/ L 07/13/2025 7:55 AM [facility] Absolute Monocytes 2.5(H) 0.2 - 1.0 10 3/ L 07/13/2025 7:55 AM [facility] Absolute Eosinophils 0.1 0.0 - 0.6 10 3/ L 07/13/2025 7:55 AM [facility] Absolute Basophils 0.1 0.0 - 0.3 10 3/ L 07/13/2025 7:55 AM [facility] Absolute Immature Granulocytes 0.1 0.00 - 0.10 10 3/ L 07/13/2025 7:55 AM CDT [facility] Blood VEIN SPECIMEN / Unknown Blood Collection / Unknown 07/13/2025 6:57 AM CDT 07/13/2025 7:14 AM CDT Narrative [facility] - 07/13/2025 7:55 AM CDT Reference ranges for nonbinary/intersex or unspecified gender patients have not been established. Please refer to the following table for ranges established for cisgender patients and evaluate in the clinical context of the individual patient: [email or web address] us Cathleen Gallegos MD HEMATOLOGY ORDERABLES Final Resu lt Performing Organization Address [facility] Co de Phone Number [facility] [address] [address] * (ABNORMAL) HEMOGLOBIN A1C (07/13/2025 6:57 AM CDT) Hemoglobin A1c 8.9(H) 4.0 - 5.6 % 07/13/2025 2:44 PM CDT [facility] Blood VEIN SPECIMEN / Unknown Blood Collection / Unknown 07/13/2025 6:57 AM CDT 07/13/2025 7:14 AM CDT us Cathleen Gallegos MD CHEMISTRY ORDERABLES Final Resul t Performing Organization Address [facility] Co de Phone Number [facility] [address] [address] * Lipid Panel(AMA) w/LDL Calculated (07/13/2025 6:57 AM CDT) Total Cholesterol 157 mg/dL 025 8:10 AM CDT [facility] Comment:Guideline: < 170 mg/dl, Optimal (Not to be construed as a target for drug therapy.) Triglycerides 183 <=1,000 mg/dL 07/13/2025 8:10 AM CDT [facility] Comment: Guideline: < 100 mg/dl, Optimal (Not to be construed as a target for drug therapy.) > 499 mg/dl, Highly abnormal (Please review with your medical team.) HDL Cholesterol 45 mg/dL 8:10 AM T [facility] Comment:Guideline: > 50 mg/d l, Optimal (Not to be construed as a target for drug therapy.) LDL Cholesterol 84 mg/dL 8:10 AM T [facility] Comment: Guideline: < 100 mg/dl, Optimal (Not to be construed as a target for drug therapy.) > 189 mg/dl, Highly abnormal (Please review with your medical team.) Non-HDL Cholesterol 112 mg/dL 07/13/2025 8:10 AM T [facility] Comment: Guideline: < 120 mg/dl, Optimal (Not to be construed as a target for drug therapy.) > 219 mg/dl, Highly abnormal (Please review with your medical team.) Patient Fasting? Fasting 07/13/20 8:10 AM T [facility] Blood VEIN SPECIMEN / Unknown Blood Collection / Unknown 07/13/2025 6:57 AM CDT 07/13/2025 7:12 AM CDT [facility] - 07/13/2025 8:10 AM CDT On February 26, 2023, [facility] laboratories changed the equation for calculating estimated [...] Lipid Profile. ELEANOR: The Journal of the [employer] 310 (19): 2061-68. - Bam V, Lynn Aragon, Cinthia Bar, Rice M, Estrella R, Elena E, Nohemy RS, Jarvis SR, Justino SS. Fasting Versus Nonfasting and Low-Density Lipoprotein Cholesterol Accuracy. Circulation. 2018 Nov 05;137(1):10-19. us Cathleen Gallegos MD CHEMISTRY ORDERABLES Final Resul t [facility] Alysa Hackett [address] [place] [address] * (ABNORMAL) Comprehensive Metabolic Panel (07/13/2025 6:57 AM CDT) Only the most recent of3 resultswithin the time period is included. Sodium 135 133 - 146 mmol/L 07/13/2025 8:10 AM T [facility] Potassium 4.8 3.5 - 5.1 mmol/L 07/13/2025 8:10 AM T [facility] Chloride 100 98 - 109 mmol/L 07/13/2025 8:10 AM [facility] Carbon Dioxide 27 21 - 31 mmol/L 07/13/2025 8:10 AM [facility] Anion Gap 9 4 - 13 mmol/L 07/13/2025 8:10 AM T [facility] Blood Urea Nitrogen 35(H) 2 - 25 mg/dL 07/13/2025 8:10 AM T [facility] Creatinine 2.06(H) 0.60 - 1.30 mg/dL 07/13/2025 8:10 AM [facility] eGFRcr (CKD-EPI 2020) 35(L) >=60 mL/min/1. 73 m 07/13/2025 8:10 AM T [facility] Calcium 9.0 8.3 - 10.5 mg/dL 07/13/2025 8:10 AM [facility] Glucose 158(H) 65 - 100 mg/dL 07/13/2025 8:10 AM [facility] Protein, Total 7.2 6.4 - 8.9 g/dL 07/13/2025 8:10 AM [facility] Albumin 3.7 3.5 - 5.7 g/dL 07/13/2025 8:10 AM CDT [facility] ALT 12 0 - 52 units/L 07/13/2025 8:10 AM CDT [facility] Alkaline Phosphatase 52 34 - 104 units/L 07/13/2025 8:10 AM CDT [facility] AST 19 0 - 39 units/L 07/13/2025 8:10 AM CDT [facility] Bilirubin, Total 0.6 0.0 - 1.0 mg/dL 07/13/2025 8:10 AM CDT [facility] Patient Fasting? Fasting 07/13/2025 8:10 AM CDT [facility] Blood VEIN SPECIMEN / Unknown Blood Collection / Unknown 07/13/2025 6:57 AM CDT 07/13/2025 7:12 AM CDT us Cathleen Gallegos MD CHEMISTRY ORDERABLES Final Resul t [facility] Alysa Hackett [address] [place] [address] * CT Chest without Contrast (11/30/2018 5:53 PM HARDWARE ASSEMBLER) Anatomical Region Laterality Modality Chest Computed Tomogra phy 12/01/2018 8:10 AM HARDWARE ASSEMBLER Narrative 12/01/2018 8:34 AM HARDWARE ASSEMBLER PROCEDURE: CT CHEST WO CONTRAST. HISTORY: Shortness [...] 1 \T\ 2 Antibody (01/01/2008 2:50 PM HARDWARE ASSEMBLER) HIV-1&2 ANTIBODY - Hx Upload The results for this test, like all personal health information, must remain confidential. [employer] creates access log entries when results are [...] NONREACTIVE HISTORICAL DATA CONVERSION RESULTING AGENCY (SEE [employer]) 01/01/2008 2:50 PM HARDWARE ASSEMBLER us Sheryl Gonzalez APRN, FRONT DESK ADMINISTRATOR MICROBIOLOGY - GENERAL ORDERABLES Final Result HISTORICAL DATA CONVERSION RESULTING AGENCY (SEE [employer]) * Hepatitis C Antibody (01/01/2008 2:50 PM HARDWARE ASSEMBLER) Hepatitis C Antibody NONREACTIVE NR HISTORICAL DATA CONVERSION RESULTING AGENCY (SEE [employer]) Comment:Antibodies to HCV no t detected. Does not exclude early acute HCV infection. 01/01/2008 2:50 PM HARDWARE ASSEMBLER Sheryl Gonzalez CELL INSPECTOR, FRONT DESK ADMINISTRATOR IMMUNOLOGY ORDERABLES Final Result Performing Organization Address City/[facility] de Phone Number HISTORICAL DATA CONVERSION RESULTING AGENCY (SEE [employer]) * PSA Total(Screening) (12/11/2007 12:00 PM HARDWARE ASSEMBLER) PSA, Total 0.1 0 - 4.0 NG/ML HISTORICAL DATA CONVERSION RESULTING AGENCY (SEE [employer]) 12/11/2007 12:0 0 PM HARDWARE ASSEMBLER Michelle Madera MD CHEMISTRY ORDERABLES Final Res ult Performing Organization Address [facility] de Phone Number HISTORICAL DATA CONVERSION RESULTING AGENCY (SEE [employer] SYSTEM) from Last 3 Months or Most Recently Relevant to Health Maintenance Insurance [facility] BLUE CHOICE PREFERRED * Guarantor: BIBIANA MAYFIELD Account Type Relation to Patient Date of Phone Billing Address [place] [facility]- Recipient 1960 [address] [place] [address] Advance Directives * Full Code (Latest Code [...] 2:11 PM 09/08/2018 7:28 PM Care Teams Superintendent Drivers Relationship Specialty Start Date End Date Juan Laguerre MD [address] [facility] [address], [place] [address] PCP - General Family Medicine 01/02/18 Aubrey Crabtree III, MD [address] [facility] [address] [place] [address] Hematology and Medical Oncology 10/01/18 Jaki Nieves, PhD [address] [facility] [address] [place] [address] Genetic Counseling 11/27/18
--- OUTSIDE RECORDS SUMMARY | 2025-08-09 10:28 | XMS_ITS | Encounter Summary ---
Author Organization [facility] Address [address] [place] [address] Care Team Providers Care Retail Field Merchandiser Name Role Phone Juan Laguerre MD Primary Care Provider [phone] Bro AWAN MD, Aubrey Lane Unavailable [phone] Jaki Nieves PhD Unavailable [phone] Source Comments In the event that this is information that is protected by federal Confidentiality of Substance User Disorder Patient Records, 42 CFR Part 2 prohibits the unauthorized disclosure of these records.[facility] Encounter Details Date Type Department Care Team (Late Contact Info) Description 07/15/2023 Orders Only [place] Transplant Surgery [address] [facility]th [address] [place] [address] Mee Michele RN Social History Tobacco Use [...] Upcoming Encounters Date Type Department Care Team ([facility] Contact Info) Description 07/15/2026 1:00 PM CDT Office Visit [place] Transplant Surgery [address] [facility]th Floor [address] [place], [place] [address] Apt confirmed-EH documented as of this encounter Visit Diagnoses Diagnosis Kidney transplant recipient 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) Liver replaced by transplant Encounter for monitoring immunomodulating therapy Encounter for therapeutic drug monitoring documented in this encounter Care Teams Retail Field Merchandiser Relationship Specialty Start Date End Date Juan Laguerre MD [address] [phone] PCP - General Family Medicine 01/02/18 Aubrey Crabtree III, MD [address] [address] Hematology and Medical Oncology 10/01/18 Jaki Nieves, PhD [address] [facility] [address] [place] [address] Genetic Counseling 11/27/18 documented as of this encounter
--- OUTSIDE RECORDS SUMMARY | 2025-08-09 10:28 | XMS_ITS | Encounter Summary ---
Author Organization [facility] Address [address] [place] [address] Phone Care Team Providers Care Physical Trainer Name Role Phone Juan Laguerre MD Primary Care Provider [phone] Rell Painting MD Unavailable [phone] Bro AWAN MD, Aubrey Ellis Unavailable [phone] Jez Denson MD Unavailable Cathleen Gallegos MD Unavailable Vikram Garza MD Unavailable [phone] Treva Edwards MD Unavailable [phone] Sanchez Bills DPM Unavailable [phone] Encounter Details Date Type Department Care Team (Latest Contact Info) Description 01/03/2022 Transcribe Orders [facility] Services [address] [place] [address] Edwin Del Toro MD [address] [facility] [address] [place] [address] Liver replaced by transplant (HCC) (Primary Dx); [...] COVID-19? No / Unsure 12/30/2021 6:12 AM TELEPHONE MESSENGER documented as of this encounter Plan of Treatment Upcoming Encounters Date Type Department Care Team (Late st Contact Info) Description 08/10/2025 12:45 PM CDT Lab [facility] [address] [address] Lab, Cc [facility] 08/10/2025 1:00 PM CDT Ancillary Procedure [facility] [address] [address] 08/17/2025 9:00 AM CDT Office Visit [facility] [address] [address] Tyler Haile MD [address] [place] [address] documented as of this encounter Visit Diagnoses Diagnosis Liver replaced by transplant- Primary Kidney replaced by transplant documented in this encounter Additional Health Concerns Assessment Noted Time PHQ-9 Depression Total Score: 0 08/15/20 21 11:42 AM CDT documented as of this encounter Care Teams Physical Trainer Relationship Specialty Start Date End Date Juan Laguerre MD [address] [place] [address] [place] [address] PCP - General Family Medicine 10/05/16 Rell Painting MD [address] [place] [address] Consulting Physician General Surgery 10/22/18 Aubrey Crabtree III, MD [address] [place] [address] [place], [place] [phone] Medical Oncologist Internal Medicine 11/06/18 Jez Denson MD [facility] [address] [facility] [place] [phone] Consulting Physician Cardiovascular Disease - Cardiology 01/19/19 Cathleen Gallegos MD [address] [place] [address] Consulting Physician Nephrology 01/19/19 Vikram Garza MD [address] [address] Consulting Physician Cardiovascular Disease - Cardiology 01/19/19 Treva Edwards MD [address] [place] [address] Consulting Physician Internal Medicine 08/31/20 Sanchez Bills DPM [facility] [address] [facility] [address] [place] [address] Consulting Physician Podiatry 08/31/20 documented as of this encounter
--- OUTSIDE RECORDS SUMMARY | 2025-08-09 10:28 | XMS_ITS | Encounter Summary ---
Author Organization [facility] Address [address] [place] [address] Care Team Providers Care Bell Cleaner Name Role Phone Juan Laguerre MD Primary Care Provider [phone] Bro AWAN MD, Aubrey Lane Unavailable [phone] Jaki Nieves PhD Unavailable [phone] Source Comments In the event that this is information that is protected by federal Confidentiality of Substance User Disorder Patient Records, 42 CFR Part 2 prohibits the unauthorized disclosure of these records.[facility] Encounter Details Date Type Department Care Team (Late Contact Info) Description 07/01/2023 Orders Only [place] Transplant Surgery [address] [facility], [address]th [address] [place] [address] Kristel Chisholm RN Social History Tobacco Use [facility] [address] [address] [place] [address] Apt confirmed-EH documented as of this encounter Visit Diagnoses Diagnosis 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 transplant documented in this encounter Care Teams Bell Cleaner Relationship Specialty Start Date End Date Juan Laguerre MD [address] [facility] [address] [place] [address] PCP - General Family Medicine 01/02/18 Aubrey Crabtree III, MD [address] [facility] [address] [place] [address] Hematology and Medical Oncology 10/01/18 Jaki Nieves, PhD [address] [facility] [address] [place] [address] Genetic Counseling 11/27/18 documented as of this encounter
--- OUTSIDE RECORDS SUMMARY | 2025-08-09 10:28 | XMS_ITS | Encounter Summary ---
Author Organization [facility] Address [address] [place] [address] Phone Care Team Providers Care Brake Liner Name Role Phone Juan Laguerre MD Primary Care Provider [phone] Rell Painting MD Unavailable [phone] Bro AWAN MD, Aubrey Ellis Unavailable [phone] Jez Denson MD Unavailable Cathleen Gallegos MD Unavailable Vikram Garza MD Unavailable [phone] Treva Edwards MD Unavailable [phone] Sanchez Bills DPM Unavailable [phone] Encounter Details Date Type Department Care Team (Late st Contact Info) Description 09/12/2021 Telephone [facility] OR [address] [place] [address] Ahsan Saucedo MD [address] [place] [address] [address] [place] [address] Social History Tobacco Use Types Packs/Day [...] PM CDT Lab [facility] [address] [address] Lab, Cc [facility] 08/10/2025 1:00 PM CDT Ancillary Procedure [facility] [address] [address] 08/17/2025 9:00 AM CDT Office Visit [facility] [address] [address] Tyler Haile MD [address] [place] [address] documented as of this encounter Visit Diagnoses Not on filedocumented in this encounter Additional Health Concerns Assessment Noted Time PHQ-9 Depression Total Score: 0 08/15/20 21 11:42 AM CDT documented as of this encounter Care Teams Brake Liner Relationship Specialty Start Date End Date Juan Laguerre MD [address] [place] [address] [place] [address] PCP - General Family Medicine 10/05/16 Rell Painting MD [address] [facility] [address] [address] [place], [place] [id number] Consulting Physician General Surgery 10/22/18 Aubrey Crabtree III, MD [address] [address] Medical Oncologist Internal Medicine 11/06/18 Jez Denson MD [address] [place] [facility] [address] Consulting Physician Cardiovascular Disease - Cardiology 01/19/19 Cathleen Gallegos MD [address] [place] [id number] Consulting Physician Nephrology 01/19/19 Vikram Garza MD [address] [place] [address] Consulting Physician Cardiovascular Disease - Cardiology 01/19/19 Treva Edwards MD [address] [place] [phone] Consulting Physician Internal Medicine 08/31/20 Sanchez Bills DPM [address] [facility] [address] [place] [address] Consulting Physician Podiatry 08/31/20 documented as of this encounter
--- OUTSIDE RECORDS SUMMARY | 2025-08-09 10:28 | XMS_ITS | Encounter Summary ---
Author Organization [facility] Address [address] [place] [address] Care Team Providers Care Farm Manager Name Role Phone Juan Laguerre MD Primary Care Provider [phone] Bro AWAN MD, Aubrey Lane Unavailable [phone] Jaki Nieves PhD Unavailable [phone] Source Comments In the event that this is information that is protected by federal Confidentiality of Substance User Disorder Patient Records, 42 CFR Part 2 prohibits the unauthorized disclosure of these records.[facility] Encounter Details Date Type Department Care Team (Late Contact Info) Description 08/12/2018 Procedure Pass [place] Surgery [address] [place] [address] Social History Tobacco Use Types Packs/Day Years [...] Care Team ([facility] Contact Info) Description 07/15/2026 1:00 PM CDT Office Visit [place] Transplant Surgery [address] [place] [address] Apt confirmed-EH documented as of this encounter Visit Diagnoses Not on filedocumented in this encounter Additional Health Concerns Infection Onset Date Last Indicated Resolved Time COVID-19 Comment:Tested + on 09/0109/01/2020 09/05/2020 09/25/2020 12: 31 AM 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
--- OUTSIDE RECORDS SUMMARY | 2025-08-09 10:28 | XMS_ITS | Encounter Summary ---
Author Organization [facility] Address [address] [place] [address] Care Team Providers Care Retail Merchandising Specialist Name Role Phone Juan Laguerre MD Primary Care Provider [phone] Bro AWAN MD, Aubrey Lane Unavailable [phone] Jaki Nieves PhD Unavailable [phone] Source Comments In the event that this is information that is protected by federal Confidentiality of Substance User Disorder Patient Records, 42 CFR Part 2 prohibits the unauthorized disclosure of these records.[facility] Encounter Details Date Type Department Care Team (Late Contact Info) Description 06/10/2023 Orders Only [place] Transplant Surgery [address] [facility], [address] [place] [address] Mee Michele RN Social History Tobacco Use [...] Upcoming Encounters Date Type Department Care Team ([facility] Contact Info) Description 07/15/2026 1:00 PM CDT Office Visit [place] Transplant Surgery [address] [facility], [address] [place], [place] [address] Apt confirmed-EH documented as of this encounter Visit Diagnoses Diagnosis Kidney transplant recipient 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) Liver replaced by transplant Encounter for monitoring immunomodulating therapy Encounter for therapeutic drug monitoring documented in this encounter Care Teams Retail Merchandising Specialist Relationship Specialty Start Date End Date Juan Laguerre MD [address] [phone] PCP - General Family Medicine 01/02/18 Aubrey Crabtree III, MD [address] [address] Hematology and Medical Oncology 10/01/18 Jaki Nieves, PhD [address] [facility] [address] [place] [address] Genetic Counseling 11/27/18 documented as of this encounter
--- OUTSIDE RECORDS SUMMARY | 2025-08-09 10:28 | XMS_ITS | Clinical Summary ---
Author Organization [facility] [address] [place] Address [address] [place] [address] Care Team Providers Care Radio Time Sales Supervisor Name Role Phone Anh Cool NP Primary Care Provider [phone] Katja Li MD Unavailable [phone] Rosalee Orr RN Unavailable Unavailab le [...] CDT): Currently following with Dr. Herrera at [facility]. He is s/p surgery performed by Dr. [...] (07/30/2025 10:15 AM CDT): Follows with [facility]. We will follow their recommendations. Advised he should have at minimum yearly eye exam. Will request eye exam records. Assessment & Plan (02/04/2025 1:03 PM CDT): Follows with [facility]. We will follow their recommendations. Advised he [...] of liver transplant. Follows with transplant surgery [facility] in [place]. He is advised to stay up-to-date on [...] 1 tablet (40 mg total) by mouth kindergartner before breakfast History of transcatheter aortic valve [...] Description 08/03/2025 1:00 PM CDT Office Visit [facility] Cardiology at [address] [place] [address] Usman Nova MD History of transcatheter aortic valve replacement (TAVR) (Primary Dx); Paroxysmal atrial fibrillation (HCC) 08/03/[address] [facility] Primary Care at [address] [address] Anh Cool NP 07/30/2025 9:00 AM CDT Office Visit [facility] Primary Care at [address] [address] Anh Cool NP BMI 29.0-29.9,adult (Primary Dx); History of liver transplant (HCC); Non-recurrent acute serous otitis media of right ear; Wound of right ankle, sequela; Vitamin D deficiency; Retinopathy 05/20/2025 Telephone [facility] Primary Care at [address] [address] Anh Cool NP Medical Records Request 05/11/2025 8:18 AM CDT - 05/11/2025 11:59 PM CDT Hospital Encounter [address] [address] Mixed hyperlipidemia; Type 2 diabetes mellitus with stage 3b chronic kidney disease, with long-term current use of insulin (HCC) Discharge Disposition: Discharge to home or self care 05/11/2025 8:15 AM CDT Lab [facility] Outpatient Lab at [address] [address] 05/11/2025 7:30 AM CDT Office Visit [facility] Primary Care at [address] [address] Anh Cool NP Hypertension, essential (Primary Dx); Paroxysmal atrial fibrillation (HCC); History of transcatheter aortic valve replacement (TAVR); Statin myopathy; Mixed hyperlipidemia; Type 2 diabetes mellitus with stage 3b chronic kidney disease, with long-term current use of insulin (HCC); Need for vaccination 05/11/2025 Results Follow-Up [facility] Primary Care at [address] [address] Anh Cool NP Lipid panel, Hemoglobin A1c [...] VALVE SURGERY 11/04/2017 - 11/03/2018 TAVR - Formerly named [facility]. 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 (Diabetes Care 31:[id number], 2008). The eAG is not equivalent to a fasting glucose. Blood 05/11/2025 8:18 AM CDT 05/11/2025 2:48 PM CDT Anh Cool NP LAB BLOOD ORDERABLES Final Re sult [address]ERNIE [address] Department [place] [address] * (ABNORMAL) Lipid panel (05/11/2025 [...] CDT 05/11/2025 2:48 PM CDT Anh Cool CURTAIN CUTTER LAB BLOOD ORDERABLES Final Re sult [address]ERNIE [address] Department [place] [address] * (ABNORMAL) Albumin Creatinine Ratio, [...] URINE ORDERABLES Final Re sult [facility] [address] [address] * (ABNORMAL) Comprehensive metabolic panel (02/24/2025 7:36 [...] AM CDT FASTING:YES FASTING: YES Anh Cool CURTAIN CUTTER LAB BLOOD ORDERABLES Final Re sult Performing Organization Address [facility] de Phone Number [facility] [place] [address] [place] [address] * PSA screen (02/24/2025 7:34 AM CDT) PSA 0.33 < OR = 4.00 ng/mL [facility] Comment: The total PSA value from this assay system is standardized against the WHO standard. The test result will be approximately 20% lower when compared to the equimolar-standardized total PSA ([facility] [place]). Comparison of serial PSA results should be [...] ORDERABLES Final Re sult Performing Organization Address [facility] de Phone Number [facility] [address] [facility] [place] [address] * HM COLONOSCOPY (12/21/2021) Scribed Colonoscopy Normal Impressions Jennifer Callejas MA - 12/21/2021 Repeat 10 years Historical Provider MD HEALTH MAINTENANCE Final Result from Last 3 Months or Most Recently Relevant to Health Maintenance [place] Care Teams Radio Time Sales Supervisor Relationship Specialty Start Date End Date Anh Cool NP [address] [id number] PCP - General Internal Medicine 02/04/25 Katja Li MD [address] [place] [address] Endocrinology Diabetes & Metabolism 02/04/25 Rosalee Orr, line tender flakeboardManager Clinical Informatics 02/05/25
--- OUTSIDE RECORDS SUMMARY | 2025-08-09 10:28 | XMS_ITS | Encounter Summary ---
Author Organization [facility] Address [address] [place] [address] Care Team Providers Care Oiler And Greaser Name Role Phone Juan Laguerre MD Primary Care Provider [phone] Bro AWAN MD, Aubrey Lane Unavailable [phone] Jaki Nieves PhD Unavailable [phone] Source Comments In the event that this is information that is protected by federal Confidentiality of Substance User Disorder Patient Records, 42 CFR Part 2 prohibits the unauthorized disclosure of these records.[facility] Encounter Details Date Type Department Care Team (Late st Contact Info) Description 07/16/2018 Prep for Procedure NM Transplant Surgery [address] [facility], 19th Floor [address] [place], [place] [address] Rell Painting MD [address] [facility] [address], [place] [address] Social History Tobacco Use Types Packs/Day Years [...] [facility] [address] [place] [address] Apt confirmed-EH documented as of this encounter Visit Diagnoses Not on filedocumented in this encounter Additional Health Concerns Infection Onset Date Last Indicated Resolved Time COVID-19 Comment:Tested + on 09/0109/01/2020 09/05/2020 09/25/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 [address] [place] [address] PCP - General Family Medicine 01/02/18 Aubrey Crabtree III, MD [address] [facility] [address] [place] [address] Hematology and Medical Oncology 10/01/18 Jaki Nieves, PhD [address] [facility] [address] [place] [address] Genetic Counseling 11/27/18 documented as of this encounter
--- OUTSIDE RECORDS SUMMARY | 2025-08-09 10:28 | XMS_ITS | Encounter Summary ---
Author Organization [facility] Address [address] [place] [address] Care Team Providers Care Advanced Manufacturing Technician Name Role Phone Juan Laguerre MD Primary Care Provider [phone] Bro AWAN MD, Aubrey Lane Unavailable [phone] Jaki Nieves PhD Unavailable [phone] Source Comments In the event that this is information that is protected by federal Confidentiality of Substance User Disorder Patient Records, 42 CFR Part 2 prohibits the unauthorized disclosure of these records.[facility] Encounter Details Date Type Department Care Team (Late Contact Info) Description 06/17/2023 Orders Only [place] Transplant Surgery [address] [facility], 19th Floor [address] [place] [address] Mee Michele RN Social History Tobacco Use [...] Upcoming Encounters Date Type Department Care Team ([facility] Contact Info) Description 07/15/2026 1:00 PM CDT Office Visit [place] Transplant Surgery [address] [facility], 19th Floor [address] [place], [place] [address] Apt confirmed-EH documented as of this encounter Visit Diagnoses Diagnosis Kidney transplant recipient 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) Liver replaced by transplant Encounter for monitoring immunomodulating therapy Encounter for therapeutic drug monitoring documented in this encounter Care Teams Advanced Manufacturing Technician Relationship Specialty Start Date End Date Juan Laguerre MD [address] [phone] PCP - General Family Medicine 01/02/18 Aubrey Crabtree III, MD [address] [address] Hematology and Medical Oncology 10/01/18 Jaki Nieves, PhD [address] [facility] [address] [place] [address] Genetic Counseling 11/27/18 documented as of this encounter
--- OUTSIDE RECORDS SUMMARY | 2025-08-09 10:28 | XMS_ITS | Encounter Summary ---
Author Organization [facility] Address [address] [place] [address] Care Team Providers Care Card Folder Name Role Phone Juan Laguerre MD Primary Care Provider [phone] Bro AWAN MD, Aubrey Lane Unavailable [phone] Jaki Nieves PhD Unavailable [phone] Source Comments In the event that this is information that is protected by federal Confidentiality of Substance User Disorder Patient Records, 42 CFR Part 2 prohibits the unauthorized disclosure of these records.[facility] Encounter Details Date Type Department Care Team ([facility] st Contact Info) Description 09/02/2018 Prep for Procedure NM Surgery [address] [place] [address] Sheryl Gonzalez, RESIDENTIAL SUPPORT SPECIALIST, HIDE CLEANER [address] [place] [address] Social History Tobacco Use Types Packs/Day Years [...] Office Visit [place] Transplant Surgery [address] [facility], 19th Floor [address] [place] [address] Apt confirmed-EH documented as of this encounter Visit Diagnoses Not on filedocumented in this encounter Additional Health Concerns Infection Onset Date Last Indicated Resolved Time COVID-19 Comment:Tested + on 09/0109/01/2020 09/05/2020 09/25/2020 12: 31 AM DOGGER documented as of this encounter Care Teams Card Folder Relationship Specialty Start Date End Date Juan Laguerre MD [address] [phone] PCP - General Family Medicine 01/02/18 Aubrey Crabtree III, MD [address] [address] Hematology and Medical Oncology 10/01/18 Jaki Nieves, PhD [address] [facility] [address] [place] [address] Genetic Counseling 11/27/18 documented as of this encounter
--- OUTSIDE RECORDS SUMMARY | 2025-08-09 10:28 | XMS_ITS | Encounter Summary ---
Author Organization [facility] Address [address] [place] [address] Care Team Providers Care Bakery Pastry Internship Name Role Phone Juan Laguerre MD Primary Care Provider [phone] Bro AWAN MD, Aubrey Lane Unavailable [phone] Jaki Nieves PhD Unavailable [phone] Source Comments In the event that this is information that is protected by federal Confidentiality of Substance User Disorder Patient Records, 42 CFR Part 2 prohibits the unauthorized disclosure of these records.[facility] Encounter Details Date Type Department Care Team (Late Contact Info) Description 11/05/2018 Procedure Pass [place] Radiology [address], 4th [place] [address] Social History Tobacco Use Types Packs/Day Years [...] [facility], 19[facility] Floor [address] [place] [address] Apt confirmed-EH documented as of this encounter Visit Diagnoses Not on filedocumented in this encounter Additional Health Concerns Infection Onset Date Last Indicated Resolved Time COVID-19 Comment:Tested + on 09/0109/01/2020 09/05/2020 09/25/2020 12: 31 AM ALCOHOL AND DRUG COUNSELOR documented as of this encounter Care Teams Bakery Pastry Internship Relationship Specialty Start Date End Date Juan Laguerre MD [address] [phone] PCP - General Family Medicine 01/02/18 Aubrey Crabtree III, MD [address] [address] Hematology and Medical Oncology 10/01/18 Jaki Nieves, PhD [address] [facility] [address] [place] [address] Genetic Counseling 11/27/18 documented as of this encounter
--- OUTSIDE RECORDS SUMMARY | 2025-08-09 10:28 | XMS_ITS | Encounter Summary ---
Author Organization [facility] Address [address] [place] [address] Care Team Providers Care Ip Counsel Name Role Phone Juan Laguerre MD Primary Care Provider [phone] Bro AWAN MD, Aubrey Lane Unavailable [phone] Jaki Nieves PhD Unavailable [phone] Source Comments In the event that this is information that is protected by federal Confidentiality of Substance User Disorder Patient Records, 42 CFR Part 2 prohibits the unauthorized disclosure of these records.[facility] Encounter Details Date Type Department Care Team (Late st Contact Info) Description 08/25/2018 Orders Only NM Transplant Surgery [address] [facility], 19th Floor [address] [place], [place] [address] Noe Keyes MD [address] [facility] [address] [address] Social History Tobacco Use Types Packs/Day Years [...] [facility], 19th Floor [address] [place] [address] Apt confirmed-EH documented as of this encounter [...] with Microscopic (08/22/2018 5:34 AM CDT) Specific [place], Urine - External 1.012 1.003 - 1.035 [...] Organization Address [facility] de Phone Number EXTERNAL LAB * Protein [...] Organization Address [facility] de Phone Number EXTERNAL LAB * Tacrolimus (08/22/2018 5:34 AM CDT) Tacrolimus ([id number]), Blood - External 11.2 ng/mL EXTERNAL LAB 08/22/2018 5:34 AM CDT Narrative EXTERNAL LAB - 09/02/2018 1:28 PM CDT Verified by Monie Siddiqui on 09/02/2018. us Noe Keyes MD CHEMISTRY ORDERABLES Final R esult Performing Organization Address [facility] de Phone Number EXTERNAL LAB [...] 1.59 1.30 - 2.90 10(3)/mcL EXTERNAL LAB Wheeler Absolute - External 0.54 0.10 - 0.80 [...] 09/0109/01/2020 09/05/2020 09/25/2020 12: 31 AM QUALITY ENGINEER documented as of this encounter Care Teams Ip Counsel Relationship Specialty Start Date End Date Juan Laguerre MD [address] [place] [address] PCP - General Family Medicine 01/02/18 Aubrey Crabtree III, MD [address] [address] Hematology and Medical Oncology 10/01/18 Jaki Nieves, PhD [address] [facility] [address] [place] [address] Genetic Counseling 11/27/18 documented as of this encounter
--- OUTSIDE RECORDS SUMMARY | 2025-08-09 10:28 | XMS_ITS | Encounter Summary ---
Author Organization [facility] Address [address] [place] [address] Care Team Providers Care Seal Mixer Name Role Phone Juan Laguerre MD Primary Care Provider [phone] Bro AWAN MD, Aubrey Lane Unavailable [phone] Jaki Nieves PhD Unavailable [phone] Source Comments In the event that this is information that is protected by federal Confidentiality of Substance User Disorder Patient Records, 42 CFR Part 2 prohibits the unauthorized disclosure of these records.[facility] Encounter Details Date Type Department Care Team (Late Contact Info) Description 11/05/2018 Procedure Pass [place] Radiology [address]th [place] [address] Social History Tobacco Use Types Packs/Day Years [...] Upcoming Encounters Date Type Department Care Team ([facility] Contact Info) Description 07/15/2026 1:00 PM CDT Office Visit [place] Transplant Surgery [address] [facility], 19th Floor [address] [place] [address] Apt confirmed-EH documented as of this encounter Visit Diagnoses Not on filedocumented in this encounter Additional Health Concerns Infection Onset Date Last Indicated Resolved Time COVID-19 Comment:Tested + on 09/0109/01/2020 09/05/2020 09/25/2020 12: 31 AM ANIMAL PATHOLOGIST documented as of this encounter Care Teams Seal Mixer Relationship Specialty Start Date End Date Juan Laguerre MD [address] [phone] PCP - General Family Medicine 01/02/18 Aubrey Crabtree III, MD [address] [address] Hematology and Medical Oncology 10/01/18 Jaki Nieves, PhD [address] [facility] [address] [place] [address] Genetic Counseling 11/27/18 documented as of this encounter
--- OUTSIDE RECORDS SUMMARY | 2025-08-09 10:28 | XMS_ITS | Encounter Summary ---
Author Organization [facility] Address [address] [place] [address] Care Team Providers Care Humidifier Operator Name Role Phone Juan Laguerre MD Primary Care Provider [phone] Bro AWAN MD, Aubrey Lane Unavailable [phone] Jaki Nieves PhD Unavailable [phone] Source Comments In the event that this is information that is protected by federal Confidentiality of Substance User Disorder Patient Records, 42 CFR Part 2 prohibits the unauthorized disclosure of these records.[facility] Encounter Details Date Type Department Care Team (Late Contact Info) Description 07/16/2018 Procedure Pass [place] Radiology [address], [address]th [place] [address] Social History Tobacco Use Types Packs/Day Years [...] [facility], 19th Floor [address] [place] [address] Apt confirmed-EH documented as of this encounter Visit Diagnoses Not on filedocumented in this encounter Additional Health Concerns Infection Onset Date Last Indicated Resolved Time COVID-19 Comment:Tested + on 09/0109/01/2020 09/05/2020 09/25/2020 12: 31 AM CONVEX GRINDER documented as of this encounter Care Teams Humidifier Operator Relationship Specialty Start Date End Date Juan Laguerre MD [address] [phone] PCP - General Family Medicine 01/02/18 Aubrey Crabtree III, MD [address] [address] Hematology and Medical Oncology 10/01/18 Jaki Nieves, PhD [address] [facility] [address] [place] [address] Genetic Counseling 11/27/18 documented as of this encounter
--- OUTSIDE RECORDS SUMMARY | 2025-08-09 10:28 | XMS_ITS ---
Author Organization [facility] Address [address] [place] [address] Care Team Providers Care Access Coordinator Name Role Phone Juan Laguerre MD Primary Care Provider [phone] Bro AWAN MD, Aubrey Lane Unavailable [phone] Jaki Nieves PhD Unavailable [phone] Active Problems Problem Noted Date Diagnosed Date [...] ethyl therapy instead of fenofibrate due to long term acute care registered nurse risks to the kidney and liver. Assessment & Plan (10/05/2022 11:46 AM PAY STATION ATTENDANT): Recommended more aggressive control. From a transplant and kidney perspective, can start high dose stain and icosapent ethyl combination therapy due to long term acute care registered nurse risks to the kidney and liver. Health [...] (12/22/2018): Added automatically from request for surgery [id number] Metabolic alkalosis 12/06/2018 Assessment & Plan (12/11/2018 6:22 PM PAY STATION ATTENDANT): Contraction from diuresis. Stable. Moderate dose of diuretics may be necessary and acceptable. Monitor daily serum bicarbonate. Aortic stenosis 12/05/2018 Assessment & Plan (12/07/2018 10:26 AM PAY STATION ATTENDANT): Cardiology management. Atrial fibrillation 12/04/2018 Assessment & Plan (12/07/2018 10:27 AM PAY STATION ATTENDANT): Cardiology management. Rate control may not be effective in the setting of hypotension. On systemic anticoagulation. 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 Continue to monitor. Anemia 11/27/2018 Assessment & Plan (12/09/2018 8:22 PM PAY STATION ATTENDANT): Stable. Below goal hemoglobin 10-11 g/dL, transfuse prn < 7 g/dL. Monitor daily. No role for recombinant erythropoietin in this acute setting. Assessment & Plan (11/27/2018 5:09 PM PAY STATION ATTENDANT): Low MCV, so likely iron deficient. Check iron studies with next lab draw locally and discuss with Medical Oncologist re treatment/further w/up. 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 Assessment & Plan (10/05/2022 11:44 AM PAY STATION ATTENDANT): Continue SMZ/TMP M/W/F. Assessment & Plan (08/09/2021 11:29 AM CDT): Continue SMZ/TMP M/W/F. Assessment & Plan (08/11/2020 11:00 PM CDT): Continue SMZ/TMP M/W/F. Assessment & Plan (07/29/2019 11:12 AM CDT): Continue SMZ/TMP M/W/F. Assessment & Plan (03/02/2019 1:28 PM CDT): Continue SMZ/TMP M/W/F. Assessment & Plan (12/31/2018 9:38 AM PAY STATION ATTENDANT): Continue SMZ/TMP M/W/F. Assessment & Plan (12/20/2018 4:25 PM PAY STATION ATTENDANT): Continue bactrim MWF for PJP prophylaxis Assessment & Plan (12/01/2018 5:32 PM PAY STATION ATTENDANT): Continue SMZ/TMP M/W/F. Assessment & Plan (11/04/2018 3:32 PM PAY STATION ATTENDANT): Continue Bactrim Saturday for prophylaxis Assessment & Plan (09/08/2018 1:19 PM PAY STATION ATTENDANT): Continue SMZ/TMP M/W/F. History of partial pancreatectomy [...] levels. Assessment & Plan (10/05/2022 11:43 AM PAY STATION ATTENDANT): Immunosuppressive drug therapy requiring intensive monitoring for [...] levels. Assessment & Plan (12/31/2018 9:38 AM PAY STATION ATTENDANT): Continue FK/MPA. Plan conversion back to everolimus once adequate recovery from TAVR. Monitor FK (goal 3-5) and MPA (goal 1.5-2.5) trough levels. Assessment & Plan (12/20/2018 4:24 PM PAY STATION ATTENDANT): Continue tacrolimus (low goal up to 3), myfortic 360 mg bid. Check tacrolimus trough levels. Assessment & Plan (12/10/2018 7:40 PM PAY STATION ATTENDANT): Continue FK/MPA. Consider conversion to sirolimus now recovered from surgery, once medically stable. Monitor daily FK (essentially at goal 4-6) and MPA (at goal 1.5-2.5) trough levels. Assessment & Plan (11/27/2018 5:07 PM PAY STATION ATTENDANT): Converted off everolimus to tacrolimus at the time of Whipples procedure. Continue MPA/FK. Monitor FK (goal 3-5) and MPA (goal 1.5-2.5) trough levels. Review possible conversion back to EVL in 6 months. Assessment & Plan (11/05/2018 5:14 PM PAY STATION ATTENDANT): Continue tacrolimus 1 mg twice daily with goal of 5-7 ng/mL for a 12-hour trough level. Continue mycophenolate sodium 360 mg twice daily Prednisone was recently stopped after surgery. Given new orthostatic symptoms could consider repeat cortisol stimulation testing Assessment & Plan (09/08/2018 1:18 PM PAY STATION ATTENDANT): Converted to FK/MMF/low dose prednisone regimen. Minimize [...] course. 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 Plan conversion of FK back to everolimus once recovered from TAVR. Assessment & Plan (11/27/2018 5:12 PM PAY STATION ATTENDANT): s/p Whipple procedure and splenectomy in 08/2018. Now having chemotherapy. Assessment & Plan (09/08/2018 1:19 PM PAY STATION ATTENDANT): Pending pathology. Pancreatic duct dilated 07/02/2018 Overview (07/02/2018): Added automatically from request for surgery [id number] Vision loss of right eye 01/27/2018 Hypertension, essential 01/27/2018 Assessment & Plan (08/11/2020 11:02 PM CDT): Goal < 130/80, continue present regimen. Candidate for ACEi/ARB if blood pressure worsens. Assessment & Plan (12/31/2018 9:40 AM PAY STATION ATTENDANT): At goal < 130/80, continue present regimen. Assessment & Plan (12/11/2018 6:22 PM PAY STATION ATTENDANT): Maintain SBP > 100 if possible from a kidney standpoint to maximize recovery, presently at goal. Assessment & Plan (09/08/2018 1:19 PM PAY STATION ATTENDANT): At goal < 140/90, presently off therapy. Assessment & Plan (08/07/2018 5:57 PM CDT): At goal < 140/90, continue present regimen. Peripheral neuropathy 01/27/2018 Vitreous hemorrhage of right eye 01/27/2018 Chronic kidney disease, stage 3a 08/02/2015 Assessment & Plan (12/31/2018 9:39 AM PAY STATION ATTENDANT): Monitor calcium, phosphorus, PTH, vitamin D, and anemia labs. Assessment & Plan (12/01/2018 5:31 PM PAY STATION ATTENDANT): Outpatient monitoring of calcium, phosphorus, PTH, 25-OH vit D, and anemia. Assessment & Plan (09/08/2018 1:19 PM PAY STATION ATTENDANT): Stable. Outpatient monitoring of calcium, phosphorus, PTH, [...] screening. Assessment & Plan (10/05/2022 11:43 AM PAY STATION ATTENDANT): SLK. With chronic kidney disease stage 3a, [...] screening. Assessment & Plan (12/31/2018 9:37 AM PAY STATION ATTENDANT): Acute kidney failure resolved, back to baseline good function. Monitor serum creatinine, proteinuria, and BK viral load screening. Assessment & Plan (12/23/2018 5:48 PM PAY STATION ATTENDANT): Status post remote renal transplant - baseline renal function around 1.3 mg/dl - currently close to baseline Received IVF post contrast exposure, Assessment & Plan (12/01/2018 5:30 PM PAY STATION ATTENDANT): s/p SLK. With chronic kidney disease stage 3. Monitor daily serum creatinine. Assessment & Plan (11/27/2018 5:05 PM PAY STATION ATTENDANT): S/p SLT transplant. Good allograft function. Monitor serum creatinine, proteinuria, and BK viral load screening. Assessment & Plan (11/04/2018 3:31 PM PAY STATION ATTENDANT): Status post remote donor renal transplant simultaneous liver transplant 10 years ago. Mild acute kidney injury last week but now returned to baseline at 1.1 mg/dL. Continue to monitor renal function while in house Assessment & Plan (09/08/2018 1:17 PM PAY STATION ATTENDANT): Stable function after conversion to tacrolimus. Monitor serum creatinine, proteinuria, and BK viral load screening. Assessment & Plan (08/07/2018 5:54 PM CDT): Good allograft function. Monitor serum creatinine, proteinuria, and BK viral load screening. Liver transplant 01/02/2008 01/02/2008 Assessment & Plan (07/15/2024 2:20 PM CDT): Doing well overall. Recently moved to [place], [place]. Liver tests are normal. Following with Dr. Gallegos for kidney transplant. Following with cardiology, recently started statin for elevated cholesterol. 6 years from pancreatic cancer. Following with oncologist at [facility]. Follow up CT scheduled. Plan: Continue current [...] LFTs. Assessment & Plan (09/08/2018 1:17 PM PAY STATION ATTENDANT): Continue follow up with Hepatology. Monitor liver transaminases. Type II diabetes mellitus with complication 04/2008 Assessment & Plan (07/13/2025 1:03 PM CDT): Uncontrolled. Reinforced importance of good glycemic control. Continue follow up with [employer], started on SGLT2 inhibitor. Monitor fasting glucose and A1C. Assessment & Plan (07/16/2024 4:52 PM CDT): Uncontrolled. Reinforced importance of good glycemic control. Continue follow up with [employer], to discuss SGLT2 inhibitors and GLP-1 agonists. Monitor fasting glucose and A1C. Assessment & Plan (07/31/2023 9:59 AM CDT): Uncontrolled. Reinforced importance of good glycemic control. Continue follow up with [employer], to discuss SGLT2 inhibitors and GLP-1 agonists. Monitor fasting glucose and A1C. Assessment & Plan (10/05/2022 11:45 AM PAY STATION ATTENDANT): Uncontrolled. Reinforced importance of good glycemic control. Continue follow up with [employer]. Monitor fasting glucose and A1C. Assessment & Plan (08/09/2021 11:32 AM CDT): Continue follow up with [employer]. Monitor fingerstick and fasting glucose, and A1C. Assessment & Plan (08/11/2020 11:01 PM CDT): Uncontrolled. Recommended to increase insulin dose, follow up with PCP/[employer]. Monitor fingerstick and fasting glucose, and A1C. Assessment & Plan (07/31/2019 10:59 AM CDT): Recommended to increase insulin dose, follow up with PCP/[employer]. Monitor fingerstick and fasting glucose, and A1C. Assessment & Plan (12/31/2018 9:41 AM PAY STATION ATTENDANT): Reinforced importance of improved glycemic control, patient is scheduled to see his [employer]. Continue present regimen. Monitor fingerstick and fasting glucose, and A1C. Assessment & Plan (12/01/2018 5:33 PM PAY STATION ATTENDANT): Endocrinology consultation. Monitor fingerstick glucose and cover with ISS. Assessment & Plan (09/08/2018 1:20 PM PAY STATION ATTENDANT): Controlled. Resume outpatient monitoring by [employer]. Continue insulin regimen. Monitor fingerstick and fasting [...]
--- OUTSIDE RECORDS SUMMARY | 2025-08-09 10:28 | XMS_ITS | Encounter Summary ---
Author Organization [facility] Address [address] [place] [address] Care Team Providers Care Drafter Assistant Name Role Phone Juan Laguerre MD Primary Care Provider [phone] Bro AWAN MD, Aubrey Lane Unavailable [phone] Jaki Nieves PhD Unavailable [phone] Source Comments In the event that this is information that is protected by federal Confidentiality of Substance User Disorder Patient Records, 42 CFR Part 2 prohibits the unauthorized disclosure of these records.[facility] Encounter Details Date Type Department Care Team (Late Contact Info) Description 07/03/2018 Procedure Pass [place] Gastroenterology [address] [facility], [address]th [place] [address] Social History Tobacco Use Types Packs/Day Years [...] Encounters Date Type Department Care Team ([facility] Contact Info) Description 07/15/2026 1:00 PM CDT Office Visit [place] Transplant Surgery [address], [address] [place] [address] Apt confirmed-EH documented as of this encounter Visit Diagnoses Not on filedocumented in this encounter Additional Health Concerns Infection Onset Date Last Indicated Resolved Time COVID-19 Comment:Tested + on 09/0109/01/2020 09/05/2020 09/25/2020 12: 31 AM ABRADING MACHINE TENDER documented as of this encounter Care Teams Drafter Assistant Relationship Specialty Start Date End Date Juan Laguerre MD [address] [id number] PCP - General Family Medicine 01/02/18 Aubrey Crabtree III, MD [address] [address] Hematology and Medical Oncology 10/01/18 Jaki Nieves, PhD [address] [facility] [address] [place] [address] Genetic Counseling 11/27/18 documented as of this encounter
--- OUTSIDE RECORDS SUMMARY | 2025-08-09 10:28 | XMS_ITS | Encounter Summary ---
Author Organization [facility] Address [address] [place] [address] Care Team Providers Care Sports Medicine Trainer Name Role Phone Juan Laguerre MD Primary Care Provider [phone] Bro AWAN MD, Aubrey Lane Unavailable [phone] Jaki Nieves PhD Unavailable [phone] Source Comments In the event that this is information that is protected by federal Confidentiality of Substance User Disorder Patient Records, 42 CFR Part 2 prohibits the unauthorized disclosure of these records.[facility] Encounter Details Date Type Department Care Team (Late Contact Info) Description 08/28/2018 Orders Only [place] Transplant Surgery [address] [facility] [place] [address] Cara Cook RN Social History Tobacco Use [...] [address], [address] [place] [address] Apt confirmed-EH documented as of this encounter Visit Diagnoses Diagnosis Kidney transplanted Kidney replaced by transplant documented in this encounter Additional Health Concerns Infection Onset Date Last Indicated Resolved Time COVID-19 Comment:Tested + on 09/0109/01/2020 09/05/2020 09/25/2020 12: 31 AM GUT CLEANER documented as of this encounter Care Teams Sports Medicine Trainer Relationship Specialty Start Date End Date Juan Laguerre MD [address] [facility] [address] [place], [place] [id number] PCP - General Family Medicine 01/02/18 Aubrey Crabtree III, MD [address] [facility] [address] [place] [address] Hematology and Medical Oncology 10/01/18 Jaki Nieves, PhD [address] [place] [place], [place] [address] Genetic Counseling 11/27/18 documented as of this encounter
--- OUTSIDE RECORDS SUMMARY | 2025-08-09 10:28 | XMS_ITS | Encounter Summary ---
Author Organization [facility] Address [address] [place] [address] Phone Care Team Providers Care Business Job Titles Name Role Phone Juan Laguerre MD Primary Care Provider [phone] Rell Painting MD Unavailable [phone] Bro AWAN MD, James L Unavailable [phone] Jez Denson MD Unavailable Cathleen Gallegos MD Unavailable Vikram Garza MD Unavailable [phone] Treva Edwards MD Unavailable [phone] Sanchez Bills DPLeena Unavailable [phone] Encounter Details Date Type Department Care Team (Latest Contact Info) Description 10/11/2020 Transcribe Orders [facility] Admitting [address] [place] [address] Juan Laguerre MD [address] [place] [address] Shortness of breath (Primary Dx) Social History Tobacco Use Types [...] have Coronavirus / COVID-19? No / Unsure 10/10/2020 2:33 PM BANK BOSS documented as of this encounter Plan of Treatment Upcoming Encounters Date Type Department Care Team (Late st Contact Info) Description 08/10/2025 12:45 PM CDT Lab [facility] [address] [address] Lab, [facility] 08/10/2025 1:00 PM CDT Ancillary Procedure [facility] [address] [address] 08/17/2025 9:00 AM CDT Office Visit [facility] [address] [address] Tyler Haile MD [address] [place] [address] documented as of this encounter Visit Diagnoses Diagnosis Shortness of breath- Primary documented in this encounter Additional Health Concerns Assessment Noted Time PHQ-9 Depression Total Score: 0 08/23/20 20 11:09 AM CDT documented as of this encounter Care Teams Business Job Titles Relationship Specialty Start Date End Date Juan Laguerre MD [address] [place] [address] [place] [address] PCP - General Family Medicine 10/05/16 Rell Painting MD [address] [facility] [address] [address] [place] [address] Consulting Physician General Surgery 10/22/18 Aubrey Crabtree III, MD [address] [facility] [address] [place], [place] [id number] Medical Oncologist Internal Medicine 11/06/18 Jez Denson MD [facility] [address] [facility] [place] [id number] Consulting Physician Cardiovascular Disease - Cardiology 01/19/19 Cathleen Gallegos MD [address] [place] [address] Consulting Physician Nephrology 01/19/19 Vikram Garza MD [address] [place] [address] Consulting Physician Cardiovascular Disease - Cardiology 01/19/19 Treva Edwards MD [address] [place] [address] Consulting Physician Internal Medicine 08/31/20 Sanchez Bills DPM [facility] [address] [facility] [address] [place] [address] Consulting Physician Podiatry 08/31/20 documented as of this encounter
--- OUTSIDE RECORDS SUMMARY | 2025-08-09 10:28 | XMS_ITS | Encounter Summary ---
Author Organization [facility] Address [address] [place] [address] Care Team Providers Care Financial Service Professional Name Role Phone Juan Laguerre MD Primary Care Provider [phone] Bro AWAN MD, Aubrey Lane Unavailable [phone] Jaki Nieves PhD Unavailable [phone] Source Comments In the event that this is information that is protected by federal Confidentiality of Substance User Disorder Patient Records, 42 CFR Part 2 prohibits the unauthorized disclosure of these records.[facility] Encounter Details Date Type Department Care Team (Late Contact Info) Description 09/03/2018 Procedure Pass NM Surgery [address], [address]th [place] [address] Social History Tobacco Use Types Packs/Day Years [...] Upcoming Encounters Date Type Department Care Team ([facility] Contact Info) Description 07/15/2026 1:00 PM CDT Office Visit [place] Transplant Surgery [address], [address] [facility] [address] Apt confirmed-EH documented as of this encounter Visit Diagnoses Not on filedocumented in this encounter Additional Health Concerns Infection Onset Date Last Indicated Resolved Time COVID-19 Comment:Tested + on 09/0109/01/2020 09/05/2020 09/25/2020 12: 31 AM CARE COORDINATOR documented as of this encounter Care Teams Financial Service Professional Relationship Specialty Start Date End Date Juan Laguerre MD [address] [id number] PCP - General Family Medicine 01/02/18 Aubrey Crabtree III, MD [address] [address] Hematology and Medical Oncology 10/01/18 Jaki Nieves, PhD [address] [facility] [address] [place] [address] Genetic Counseling 11/27/18 documented as of this encounter
--- OUTSIDE RECORDS SUMMARY | 2025-08-09 10:28 | XMS_ITS | Encounter Summary ---
Author Organization [facility] Address [address] [place] [address] Care Team Providers Care Theatrical Dresser Name Role Phone Juan Laguerre MD Primary Care Provider [phone] Bro AWAN MD, Aubrey Lane Unavailable [phone] Jaki Nieves PhD Unavailable [phone] Source Comments In the event that this is information that is protected by federal Confidentiality of Substance User Disorder Patient Records, 42 CFR Part 2 prohibits the unauthorized disclosure of these records.[facility] Encounter Details Date Type Department Care Team (Late st Contact Info) Description 07/12/2025 Orders Only [place] Transplant Surgery [address] [facility] [address], [address] [place], [place] [address] Cathleen Gallegos MD [address] [facility] [address] [address] Social History Tobacco Use Types Packs/Day Years [...] [address] [facility] [address], [address] [place] [address] Apt confirmed-EH documented as of this encounter [...] monitoring documented in this encounter Care Teams Theatrical Dresser Relationship Specialty Start Date End Date Juan Laguerre MD [address] [facility] [address] [place] [address] PCP - General Family Medicine 01/02/18 Aubrey Crabtree III, MD [address] [address] Hematology and Medical Oncology 10/01/18 Jaki Nieves, PhD [address] [facility] [address] [place] [place], [place] [address] Genetic Counseling 11/27/18 documented as of this encounter
--- OUTSIDE RECORDS SUMMARY | 2025-08-09 10:28 | XMS_ITS | Encounter Summary ---
Author Organization [facility] Address [address] [place] [address] Care Team Providers Care Adobe Flex Developer Name Role Phone Juan Laguerre MD Primary Care Provider [phone] Bro AWAN MD, Aubrey Lane Unavailable [phone] Jaki Nieves PhD Unavailable [phone] Source Comments In the event that this is information that is protected by federal Confidentiality of Substance User Disorder Patient Records, 42 CFR Part 2 prohibits the unauthorized disclosure of these records.[facility] Encounter Details Date Type Department Care Team (Late Contact Info) Description 01/30/2018 Clinical Update [place] Transplant Surgery [address] [facility], [address] [place] [address] Jhon Yoon Social History Tobacco Use Types [...] Office Visit [place] Transplant Surgery [address] [facility], [address] [place] [address] Apt confirmed-EH documented as of this encounter Visit Diagnoses Not on filedocumented in this encounter Additional Health Concerns Infection Onset Date Last Indicated Resolved Time COVID-19 Comment:Tested + on 09/0109/01/2020 09/05/2020 09/25/2020 12: 31 AM FORMAL WAITER/WAITRESS documented as of this encounter Care Teams Adobe Flex Developer Relationship Specialty Start Date End Date Juan Laguerre MD [address] [facility] [address], [place] [address] PCP - General Family Medicine 01/02/18 Aubrey Crabtree III, MD [address] [facility] [address] [place] [address] Hematology and Medical Oncology 10/01/18 Jaki Nieves, PhD [address] [facility] [address] [place] [address] Genetic Counseling 11/27/18 documented as of this encounter
--- OUTSIDE RECORDS SUMMARY | 2025-08-09 10:28 | XMS_ITS | Encounter Summary ---
Author Organization [facility] Address [address] [place] [address] Care Team Providers Care Preparer Samples And Repairs Name Role Phone Juan Laguerre MD Primary Care Provider [phone] Bro AWAN MD, Aubrey Lane Unavailable [phone] Jaki Nieves PhD Unavailable [phone] Source Comments In the event that this is information that is protected by federal Confidentiality of Substance User Disorder Patient Records, 42 CFR Part 2 prohibits the unauthorized disclosure of these records.[facility] Encounter Details Date Type Department Care Team (Late Contact Info) Description 06/09/2018 Procedure Pass [facility] [address] [facility], [address]th [place] [address] Social History Tobacco Use Types Packs/Day Years [...] Office Visit [place] Transplant Surgery [address] [facility], [address] [place] [address] Apt confirmed-EH documented as of this encounter Visit Diagnoses Not on filedocumented in this encounter Additional Health Concerns Infection Onset Date Last Indicated Resolved Time COVID-19 Comment:Tested + on 09/0109/01/2020 09/05/2020 09/25/2020 12: 31 AM PERSONAL FINANCIAL REPRESENTATIVE documented as of this encounter Care Teams Preparer Samples And Repairs Relationship Specialty Start Date End Date Juan Laguerre MD [address] [place] [id number] PCP - General Family Medicine 01/02/18 Aubrey Crabtree III, MD [address] [address] Hematology and Medical Oncology 10/01/18 Jaki Nieves, PhD [address] [facility] [address] [place] [address] Genetic Counseling 11/27/18 documented as of this encounter
--- OUTSIDE RECORDS SUMMARY | 2025-08-09 10:28 | XMS_ITS | Encounter Summary ---
Author Organization [facility] Address [address] [place] [address] Care Team Providers Care Squadron Worker Name Role Phone Juan Laguerre MD Primary Care Provider [phone] Bro AWAN MD, Aubrey Lane Unavailable [phone] Jaki Nieves PhD Unavailable [phone] Source Comments In the event that this is information that is protected by federal Confidentiality of Substance User Disorder Patient Records, 42 CFR Part 2 prohibits the unauthorized disclosure of these records.[facility] Encounter Details Date Type Department Care Team (Late Contact Info) Description 07/01/2023 Orders Only [place] Transplant Surgery [address] [facility], 19th Floor [address] [place] [address] Mee Michele RN Social History Tobacco Use [...] Encounters Date Type Department Care Team ([facility] Contact Info) Description 07/15/2026 1:00 PM CDT Office Visit [place] Transplant Surgery [address] [facility], 19th [address] [place], [place] [address] Apt confirmed-EH documented as of this encounter Visit Diagnoses Diagnosis Kidney transplant recipient 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
--- OUTSIDE RECORDS SUMMARY | 2025-08-09 10:28 | XMS_ITS | Encounter Summary ---
Author Organization [facility] Address [address] [place] [address] Care Team Providers Care Rn Embedded Name Role Phone Juan Laguerre MD Primary Care Provider [phone] Bro AWAN MD, Aubrey Lane Unavailable [phone] Jaki Nieves PhD Unavailable [phone] Source Comments In the event that this is information that is protected by federal Confidentiality of Substance User Disorder Patient Records, 42 CFR Part 2 prohibits the unauthorized disclosure of these records.[facility] Encounter Details Date Type Department Care Team (Late Contact Info) Description 03/07/2018 Orders Only [place] Transplant Surgery [address] [facility], 19th Floor [address] [place] [address] Cara Cook RN Social History Tobacco Use [...] [address], [address] [place] [address] Apt confirmed-EH documented as of this encounter [...] 1.36 1.30 - 2.90 10(3)/mcL EXTERNAL LAB [place] Absolute - External 0.54 0.10 - 0.80 [...] ORDERABLES Final Res ult Performing Organization Address [facility] Co de Phone Number EXTERNAL LAB * (ABNORMAL) Phosphorus Level (04/04/2018 6:04 AM CDT) Phosphorous - External 2.2(L) 2.6 - 4.5 mg/dL EXTERNAL LAB 04/04/2018 6:04 AM CDT Narrative EXTERNAL LAB - 04/08/2018 11:26 AM CDT Verified by Monie Siddiqui on 04/08/2018. Seng Mendez MD CHEMISTRY ORDERABLES Final Res ult Performing Organization Address [facility] de Phone Number EXTERNAL LAB * Magnesium Level (04/04/2018 6:04 AM CDT) Magnesium - External 1.9 mg/dL EXTERNAL LAB 04/04/2018 6:04 AM CDT Narrative EXTERNAL LAB - 04/08/2018 11:26 AM CDT Verified by Monie Siddiqui on 04/08/2018. Seng Mendez MD CHEMISTRY ORDERABLES Final Res ult Performing Organization Address [facility] de Phone Number EXTERNAL LAB * (ABNORMAL) Lipase (04/04/2018 6:04 AM CDT) Lipase - External 1,103(H) 73 - 393 U/L EXTERNAL LAB 04/04/2018 6:04 AM CDT Narrative EXTERNAL LAB - 04/08/2018 11:26 AM CDT Verified by Monie Siddiqui on 04/08/2018. Seng Mendez MD CHEMISTRY ORDERABLES Final Res ult Performing Organization Address [facility] de Phone [...] Verified by Arthur Simon on 03/10/2018. us Edwni Del Toro MD CHEMISTRY ORDERABLES Final Result Performing Organization Address [facility]/ZIP Co de Phone Number EXTERNAL LAB [...] CHEMISTRY ORDERABLES Final Result Performing Organization Address [facility] de Phone [...] CHEMISTRY ORDERABLES Final Result Performing Organization Address [facility] de Phone Number EXTERNAL LAB * Protein /Creatinine Ratio, Urine (03/07/2018 5:38 AM CDT) Prot/Creat Ratio - External 0.44 EXTERNAL LAB 03/07/2018 5:38 AM CDT Narrative EXTERNAL LAB - 03/08/2018 7:33 AM CDT Verified by Monie Siddiqui on 03/08/2018. Edwin Del Toro MD URINE ORDERABLES Final Res ult Performing Organization Address [facility] de Phone Number EXTERNAL LAB * Creatinine, random urine (03/07/2018 5:38 AM CDT) Creatinine, Urine - External 51 mg/dL EXTERNAL LAB 03/07/2018 5:38 AM CDT Narrative EXTERNAL LAB - 03/08/2018 7:33 AM CDT Verified by Monie Siddiqui on 03/08/2018. us Edwin Del Toro MD URINE ORDERABLES Final Res ult Performing Organization Address [facility] de Phone Number EXTERNAL LAB * Phosphorus Level (03/07/2018 5:38 AM CDT) Phosphorous - External 3.2 2.6 - 4.5 mg/dL EXTERNAL LAB 03/07/2018 5:38 AM CDT Narrative EXTERNAL LAB - 03/08/2018 7:33 AM CDT Verified by Monie Siddiqui on 03/08/2018. us Edwin Del Toro MD CHEMISTRY ORDERABLES Final Result Performing Organization Address [facility] de Phone Number EXTERNAL LAB * Magnesium Level (03/07/2018 5:38 AM CDT) Magnesium - External 2.1 1.6 - 2.6 mg/dL EXTERNAL LAB 03/07/2018 5:38 AM CDT Narrative EXTERNAL LAB - 03/08/2018 7:33 AM CDT Verified by Monie Siddiqui on 03/08/2018. us Edwin Del Toro MD CHEMISTRY ORDERABLES Final Result Performing Organization Address [facility] de Phone Number EXTERNAL LAB * Lipase (03/07/2018 5:38 AM CDT) Lipase - External 288 73 - 393 U/L EXTERNAL LAB 03/07/2018 5:38 AM CDT Narrative EXTERNAL LAB - 03/08/2018 7:33 AM CDT Verified by Monie Siddiqui on 03/08/2018. us Edwin Del Toro MD CHEMISTRY ORDERABLES Final Result Performing Organization Address [facility] de Phone Number EXTERNAL LAB * Amylase, Serum (03/07/2018 5:38 AM CDT) Amylase - External 63 25 - 115 U/L EXTERNAL LAB 03/07/2018 5:38 AM CDT Narrative EXTERNAL LAB - 03/08/2018 7:33 AM CDT Verified by Monie Siddiqui on 03/08/2018. Edwin Del Toro MD CHEMISTRY ORDERABLES Final Result Performing Organization Address [facility] de Phone Number EXTERNAL LAB * (ABNORMAL) Urinalysis with Microscopic (03/07/2018 5:38 AM CDT) Specific [place], Urine - External 1.007 1.003 - 1.035 [...] 03/07/2018 11:21 AM CDT Verified by Monie Siddiuqi on 03/07/2018. Edwin Del Toro MD URINE ORDERABLES Final Res ult Performing Organization Address [facility] de Phone [...] 1.08(L) 1.30 - 2.90 10(3)/mcL EXTERNAL LAB [place] Absolute - External 0.46 0.10 - 0.80 [...] 09/0109/01/2020 09/05/2020 09/25/2020 12: 31 AM STEAM PLANT OPERATOR documented as of this encounter Care Teams Rn Embedded Relationship Specialty Start Date End Date Juan Laguerre MD [address] [facility] [address] [place] [address] PCP - General Family Medicine 01/02/18 Aubrey Crabtree III, MD [address] [facility] [address] [place] [address] Hematology and Medical Oncology 10/01/18 Jaki Nieves, PhD [address] [facility] [address] [place] [address] Genetic Counseling 11/27/18 documented as of this encounter
--- OUTSIDE RECORDS SUMMARY | 2025-08-09 10:28 | XMS_ITS | Encounter Summary ---
Author Organization [facility] Address [address] [place] [address] Care Team Providers Care Hospitality Intern Name Role Phone Juan Laguerre MD Primary Care Provider [phone] Bro AWAN MD, Aubrey Lane Unavailable [phone] Jaki Nieves PhD Unavailable [phone] Source Comments In the event that this is information that is protected by federal Confidentiality of Substance User Disorder Patient Records, 42 CFR Part 2 prohibits the unauthorized disclosure of these records.[facility] Encounter Details Date Type Department Care Team (Late Contact Info) Description 06/24/2023 Orders Only [place] Transplant Surgery [address] [facility], 19th Floor [address] [place] [address] Mee Michele RN Social History Tobacco Use [...] Encounters Date Type Department Care Team ([facility] Contact Info) Description 07/15/2026 1:00 PM CDT Office Visit [place] Transplant Surgery [address] [facility], 19th Floor [address] [place], [place] [address] Apt confirmed-EH documented as of this encounter Visit Diagnoses Diagnosis Kidney transplant recipient 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
--- OUTSIDE RECORDS SUMMARY | 2025-08-09 10:28 | XMS_ITS | Encounter Summary ---
Author Organization [facility] Address [address] [place] [address] Care Team Providers Care Cafe Team Member Name Role Phone Juan Laguerre MD Primary Care Provider [phone] Bro AWAN MD, Aubrey Lane Unavailable [phone] Jaki Nieves PhD Unavailable [phone] Source Comments In the event that this is information that is protected by federal Confidentiality of Substance User Disorder Patient Records, 42 CFR Part 2 prohibits the unauthorized disclosure of these records.[facility] Encounter Details Date Type Department Care Team (Late Contact Info) Description 07/14/2018 Procedure Pass [place] Radiology [address], [address] [place] [address] Social History Tobacco Use Types Packs/Day Years [...] Transplant Surgery [address] [facility] [place] [facility], 19th Floor [address] [place] [address] Apt confirmed-EH documented as of this encounter Visit Diagnoses Not on filedocumented in this encounter Additional Health Concerns Infection Onset Date Last Indicated Resolved Time COVID-19 Comment:Tested + on 09/0109/01/2020 09/05/2020 09/25/2020 12: 31 AM RELOCATION SERVICES SPECIALIST documented as of this encounter Care Teams Cafe Team Member Relationship Specialty Start Date End Date Juan Laguerre MD [address] [id number] PCP - General Family Medicine 01/02/18 Aubrey Crabtree III, MD [address] [address] Hematology and Medical Oncology 10/01/18 Jaki Nieves, PhD [address] [facility] [address] [place] [address] Genetic Counseling 11/27/18 documented as of this encounter
--- OUTSIDE RECORDS SUMMARY | 2025-08-09 10:28 | XMS_ITS | Encounter Summary ---
Author Organization [facility] Address [address] [place] [address] Care Team Providers Care Adoption Agent Name Role Phone Juan Laguerre MD Primary Care Provider [phone] Bro AWAN MD, Aubrey Lane Unavailable [phone] Jaki Nieves PhD Unavailable [phone] Source Comments In the event that this is information that is protected by federal Confidentiality of Substance User Disorder Patient Records, 42 CFR Part 2 prohibits the unauthorized disclosure of these records.[facility] Encounter Details Date Type Department Care Team (Late Contact Info) Description 08/01/2018 Procedure Pass [place] Gastroenterology [address] [facility], 4th [place] [address] Social History Tobacco Use Types Packs/Day Years [...] Encounters Date Type Department Care Team ([facility] Contact Info) Description 07/15/2026 1:00 PM CDT Office Visit [place] Transplant Surgery [address] [facility], 19th Floor [address] [place] [address] Apt confirmed-EH documented as of this encounter Visit Diagnoses Not on filedocumented in this encounter Additional Health Concerns Infection Onset Date Last Indicated Resolved Time COVID-19 Comment:Tested + on 09/0109/01/2020 09/05/2020 09/25/2020 12: 31 AM [employer]BER documented as of this encounter Care Teams Adoption Agent Relationship Specialty Start Date End Date Juan Laguerre MD [address] [address] PCP - General Family Medicine 01/02/18 Aubrey Crabtree III, MD [address] [address] Hematology and Medical Oncology 10/01/18 Jaki Nieves, PhD [address] [facility] [address] [place] [address] Genetic Counseling 11/27/18 documented as of this encounter
--- OUTSIDE RECORDS SUMMARY | 2025-08-09 10:29 | XMS_ITS | Encounter Summary ---
Author Organization [facility] Address [address] [place] [address] Care Team Providers Care Tax Services Manager Name Role Phone Juan Laguerre MD Primary Care Provider [phone] Bro AWAN MD, Aubrey Lane Unavailable [phone] Jaki Nieves PhD Unavailable [phone] Source Comments In the event that this [...] [facility], [address]th [address] [place], [place] [address] Cathleen Gallegos MD [address] [facility] [address] [address] Social History Tobacco Use Types Packs/Day Years [...] Office Visit [place] Transplant Surgery [address] [facility], [address]th [address] [place], [place] [address] Apt confirmed-EH documented as of this encounter Visit Diagnoses Diagnosis Kidney replaced by transplant Protein screening Special screening for other specified conditions documented in this encounter Care Teams Tax Services Manager Relationship Specialty Start Date End Date Juan Laguerre MD [address] [facility] [address] [place] [address] PCP - General Family Medicine 01/02/18 Aubrey Crabtree III, MD [address] [facility] [address] [place], [place] [phone] Hematology and Medical Oncology 10/01/18 Jaki Nieves, PhD [address] [facility] [address] [place], [place] [address] Genetic Counseling 11/27/18 documented as of this encounter
--- OUTSIDE RECORDS SUMMARY | 2025-08-09 10:29 | XMS_ITS | Encounter Summary ---
Author Organization [facility] Address [address] [place] [address] Care Team Providers Care Bucket Wash Operator Name Role Phone Juan Laguerre MD Primary Care Provider [phone] Bro AWAN MD, Aubrey Lane Unavailable [phone] Jaki Nieves PhD Unavailable [phone] Source Comments In the event that this is information that is protected by federal Confidentiality of Substance User Disorder Patient Records, 42 CFR Part 2 prohibits the unauthorized disclosure of these records.[facility] Encounter Details Date Type Department Care Team (Late Contact Info) Description 01/27/2024 Orders Only NM Transplant Surgery [address] [facility], 19th [address] [place] [address] Delaney Gallegos Social History Tobacco Use Types [...] [address], [address] [place] [address] Apt confirmed-EH documented as of this encounter [...] - External CLEAR CLEAR EXTERNAL LAB Specific [place], Urine - External 1.025 1.001 - 1.035 [...] transplant documented in this encounter Care Teams Bucket Wash Operator Relationship Specialty Start Date End Date Juan Laguerre MD 241 [facility] [address] [place] [address] PCP - General Family Medicine 01/02/18 Aubrey Crabtree III, MD [address] [facility] [address] [place] [address] Hematology and Medical Oncology 10/01/18 Jaki Nieves, PhD [address] [facility] [address] [place] [address] Genetic Counseling 11/27/18 documented as of this encounter
--- OUTSIDE RECORDS SUMMARY | 2025-08-09 10:29 | XMS_ITS | Encounter Summary ---
Author Organization [facility] Address [address] [place] [address] Care Team Providers Care Conveyor Feeder Name Role Phone Juan Laguerre MD Primary Care Provider [phone] Bro AWAN MD, Aubrey Lane Unavailable [phone] Jaki Nieves PhD Unavailable [phone] Source Comments In the event that this is information that is protected by federal Confidentiality of Substance User Disorder Patient Records, 42 CFR Part 2 prohibits the unauthorized disclosure of these records.[facility] Encounter Details Date Type Department Care Team (Late Contact Info) Description 02/11/2023 Orders Only NM Transplant Surgery [address] [facility], 19th [address] [place] [address] Kristel Chisholm RN Social History Tobacco Use [...] [facility], 19th Floor [address] [place] [address] Apt confirmed-EH documented as of this encounter Visit Diagnoses Diagnosis 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 transplant documented in this encounter Care Teams Conveyor Feeder Relationship Specialty Start Date End Date Juan Laguerre MD [address] [facility] [address] [place] [address] PCP - General Family Medicine 01/02/18 Aubrey Crabtree III, MD [address] [facility] [address] [place] [address] Hematology and Medical Oncology 10/01/18 Jaki Nieves, PhD [address] [facility] [address] [place] [address] Genetic Counseling 11/27/18 documented as of this encounter
--- OUTSIDE RECORDS SUMMARY | 2025-08-09 10:29 | XMS_ITS | Encounter Summary ---
Author Organization [facility] Address [address] [place] [address] Care Team Providers Care Firmware Software Verification Engineer Name Role Phone Juan Laguerre MD Primary Care Provider [phone] Bro AWAN MD, Aubrey Lane Unavailable [phone] Jaki Nieves PhD Unavailable [phone] Source Comments In the event that this is information that is protected by federal Confidentiality of Substance User Disorder Patient Records, 42 CFR Part 2 prohibits the unauthorized disclosure of these records.[facility] Encounter Details Date Type Department Care Team (Late st Contact Info) Description 12/31/2022 Orders Only [place] Transplant Surgery [address] [facility], [address] [place], [place] [address] Cathleen Gallegos MD [address] [facility] [address] [address] Social History Tobacco Use Types Packs/Day Years [...] Visit [place] Transplant Surgery [address] [facility], [address] [place] [address] Apt confirmed-EH documented as of this encounter Procedures Procedure Name Priority Date/Time Associated Diagnosis Comments LDL CHOLESTEROL,DIRECT MEASURE Routine 03/06/2023 6:49 AM CDT Kidney transplant 01/02/2008 Lipid disorder HEPATIC FUNCTION PANEL Routine 03/06/2023 6:49 AM CDT Kidney transplant 01/02/2008 BK VIRUS QUANT VIRAL LOAD, URINE Routine 01/12/2023 7:51 AM CHURCH WORKER BK VIRUS DNA QUANT PCR, BLOOD Routine 01/12/2023 7:51 AM CHURCH WORKER CBC AND DIFFERENTIAL Routine 01/12/2023 7:51 AM CHURCH WORKER LDL CHOLESTEROL,DIRECT MEASURE Routine 01/12/2023 7:51 AM CHURCH WORKER HEMOGLOBIN A1C Routine 01/12/2023 7:51 AM CHURCH WORKER Type II diabetes mellitus with complication ([facility]-H[facility]) BILIRUBIN DIRECT Routine 01/12/2023 7:51 AM CHURCH WORKER LIPID PANEL (AMA) W/LDL CALC Routine 01/12/2023 7:51 AM CHURCH WORKER Kidney transplant 01/02/2008 Lipid disorder COMPREHENSIVE METABOLIC PANEL Routine 01/12/2023 7:51 AM CHURCH WORKER documented in this encounter Results * LDL Cholesterol, Direct (03/06/2023 6:49 AM CDT) Cholesterol LDL Direct - External 137 75 - 193 mg/dL EXTERNAL LAB Blood VEIN SPECIMEN / Unknown 03/06/2023 6:49 AM CDT Narrative EXTERNAL LAB - 03/07/2023 9:23 AM CDT Verified by Koki Burks on 03/07/2023. Cathleen Gallegos MD CHEMISTRY ORDERABLES Final Resul t Performing Organization Address [facility] de Phone Number EXTERNAL LAB * (ABNORMAL) Hepatic function panel (03/06/2023 6:49 AM CDT) Pathologist [facility] Alkaline Phos - External 82 39 - [...] ORDERABLES Final Resul t Performing Organization Address [facility] de Phone Number EXTERNAL LAB * BK Virus Quant Viral Load, Urine (01/12/2023 7:51 AM CHURCH WORKER) Pathologist [facility] BK Quantitation Urine - External 1,023,321 EXTERNAL LAB 01/12/2023 7:51 AM CHURCH WORKER Narrative EXTERNAL LAB - 01/16/2023 7:55 AM CDT Verified by Monie Siddiqui on 01/16/2023. Ewdin Del Toro MD URINE ORDERABLES Final Res ult Performing Organization Address [facility] de Phone Number EXTERNAL LAB * BK Virus DNA Quant PCR, Blood (01/12/2023 7:51 AM CHURCH WORKER) BK Virus DNA, Qn PCR - External 670 EXTERNAL LAB 01/12/2023 7:51 AM CHURCH WORKER Narrative EXTERNAL LAB - 01/16/2023 7:55 AM CDT Verified by Monie Siddiqui on 01/16/2023. Edwin Del Toro MD IMMUNOLOGY ORDERABLES Joana l Result Performing Organization Address City/[facility]/ZIP Co de Phone Number EXTERNAL LAB * LDL Cholesterol, Direct (01/12/2023 7:51 AM CHURCH WORKER) Cholesterol LDL Direct - External 138 EXTERNAL LAB 01/12/2023 7:51 AM CHURCH WORKER Narrative EXTERNAL LAB - 01/13/2023 8:41 PM CDT Verified by Monie Siddiqui on 01/13/2023. Edwin Del Toro MD CHEMISTRY ORDERABLES Final Result Performing Organization Address [facility] de Phone Number EXTERNAL LAB * Bilirubin, Direct (01/12/2023 7:51 AM CHURCH WORKER) Direct Bilirubin - External <0.1 0.0 - 0.3 mg/dL EXTERNAL LAB 01/12/2023 7:51 AM CHURCH WORKER Narrative EXTERNAL LAB - 01/13/2023 8:21 PM CDT Verified by Monie Siddiqui on 01/13/2023. Cathleen Gallegos MD CHEMISTRY ORDERABLES Final Resul t Performing Organization Address City/[facility] Co de Phone Number EXTERNAL LAB * (ABNORMAL) Comprehensive Metabolic Panel (01/12/2023 7:51 AM CHURCH WORKER) Sodium - External 133 133 - 145 [...] External 6.7 EXTERNAL LAB 01/12/2023 7:51 AM CHURCH WORKER Narrative EXTERNAL LAB - 01/13/2023 8:21 PM CDT Verified by Monie Siddiqui on 01/13/2023. us Cathleen Gallegos MD CHEMISTRY ORDERABLES Final Resul t EXTERNAL LAB * (ABNORMAL) CBC with Differential (01/12/2023 7:51 AM CHURCH WORKER) Hemoglobin - External 16.7 13.1 - 17.2 [...] 0.23 0.00 - 0.30 x10^3 EXTERNAL LAB Barber Absolute - External 1.25(H) 0.10 - 0.80 [...] 445 x10^3 EXTERNAL LAB 01/12/2023 7:51 AM CHURCH WORKER Narrative EXTERNAL LAB - 01/13/2023 8:21 PM CDT Verified by Monie Siddiqui on 01/13/2023. us Cathleen Gallegos MD HEMATOLOGY ORDERABLES Final Resu lt EXTERNAL LAB * (ABNORMAL) Hemoglobin A1c (01/12/2023 7:51 AM CHURCH WORKER) Hemoglobin A1C - External 8.4(H) 3.8 - 5.6 % EXTERNAL LAB Blood VEIN SPECIMEN / Unknown 01/12/2023 7:51 AM CHURCH WORKER Narrative EXTERNAL LAB - 01/13/2023 8:21 PM CDT Verified by Monie Siddiqui on 01/13/2023. us Cathleen Gallegos MD CHEMISTRY ORDERABLES Final Resul t EXTERNAL LAB * (ABNORMAL) Lipid Panel(AMA) w/LDL Calculated (01/12/2023 7:51 AM CHURCH WORKER) Total Cholesterol - External 284(H) 0 - 199 mg/dL EXTERNAL LAB HDL Cholesterol - External 38(L) 40 - 100 mg/dL EXTERNAL LAB Triglycerides - External 783(H) 0 - 149 mg/dL EXTERNAL LAB Blood VEIN SPECIMEN / Unknown 01/12/2023 7:51 AM CHURCH WORKER Narrative EXTERNAL LAB - 01/13/2023 8:21 PM CDT Verified by Monie Siddiqui on 01/13/2023. us Cathleen Gallegos MD CHEMISTRY ORDERABLES Edited Resu lt - Final EXTERNAL LAB documented in this encounter Visit Diagnoses Diagnosis Kidney transplant 01/02/2008 Lipid disorder Unspecified disorder of lipoid metabolism Type II diabetes mellitus with complication ([facility]-H[facility]) Type II or unspecified type diabetes mellitus with unspecified complication, not stated as uncontrolled documented in this encounter Care Teams Firmware Software Verification Engineer Relationship Specialty Start Date End Date Juan Laguerre MD [address] [facility] [address] [place] [id number] PCP - General Family Medicine 01/02/18 Aubrey Crabtree III, MD [address] [facility] [address] [place] [id number] Hematology and Medical Oncology 10/01/18 Jaki Nieves, PhD [address] [facility] [address] [place] [address] Genetic Counseling 11/27/18 documented as of this encounter
--- OUTSIDE RECORDS SUMMARY | 2025-08-09 10:29 | XMS_ITS | Encounter Summary ---
Author Organization [facility] Address [address] [place] [address] Care Team Providers Care Storekeeper Engineering Name Role Phone Juan Laguerre MD Primary Care Provider [phone] Bro AWAN MD, Aubrey Lane Unavailable [phone] Jaki Nieves PhD Unavailable [phone] Source Comments In the event that this is information that is protected by federal Confidentiality of Substance User Disorder Patient Records, 42 CFR Part 2 prohibits the unauthorized disclosure of these records.[facility] Encounter Details Date Type Department Care Team (Late Contact Info) Description 06/15/2024 Orders Only NM Transplant Surgery [address] [facility], [address]th [address] [place] [address] Delaney Gallegos Social History Tobacco Use Types [...] [facility], [address]th Floor [address] [place], [place] [address] Apt confirmed-EH documented as of this encounter Visit Diagnoses Diagnosis Kidney replaced by transplant documented in this encounter Care Teams Storekeeper Engineering Relationship Specialty Start Date End Date Juan Laguerre MD [address] [facility] [address] [place], [place] [phone] PCP - General Family Medicine 01/02/18 Aubrey Crabtree III, MD [address] [facility] [address] [place], [place] [phone] Hematology and Medical Oncology 10/01/18 Jaki Nieves, PhD [address] [facility] [address] [place], [place] [address] Genetic Counseling 11/27/18 documented as of this encounter
--- OUTSIDE RECORDS SUMMARY | 2025-08-09 10:29 | XMS_ITS | Encounter Summary ---
Author Organization [facility] Address [address] [place] [address] Care Team Providers Care Local Intermodal Truck Driver Name Role Phone Juan Laguerre MD Primary Care Provider [phone] Bro AWAN MD, Aubrey Lane Unavailable [phone] Jaki Nieves PhD Unavailable [phone] Source Comments In the event that this is information that is protected by federal Confidentiality of Substance User Disorder Patient Records, 42 CFR Part 2 prohibits the unauthorized disclosure of these records.[facility] Encounter Details Date Type Department Care Team (Late Contact Info) Description 07/29/2023 Orders Only NM Transplant Surgery [address] [facility], [address] [place] [address] Mee Michele RN Social History Tobacco Use [...] Upcoming Encounters Date Type Department Care Team ([facility] Contact Info) Description 07/15/2026 1:00 PM CDT Office Visit NM Transplant Surgery [address] [facility], [address] [place], [place] [address] Apt confirmed-EH documented as of this encounter Visit Diagnoses Diagnosis Kidney transplant recipient 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) Liver replaced by transplant Encounter for monitoring immunomodulating therapy Encounter for therapeutic drug monitoring documented in this encounter Care Teams Local Intermodal Truck Driver Relationship Specialty Start Date End Date Juan Laguerre MD [address] [phone] PCP - General Family Medicine 01/02/18 Aubrey Crabtree III, MD [address] [address] Hematology and Medical Oncology 10/01/18 Jaki Nieves, PhD [address] [facility] [address] [place] [address] Genetic Counseling 11/27/18 documented as of this encounter
--- OUTSIDE RECORDS SUMMARY | 2025-08-09 10:29 | XMS_ITS | Encounter Summary ---
Author Organization [facility] Address [address] [place] [address] Care Team Providers Care Vp & General Counsel Name Role Phone Juan Laguerre MD Primary Care Provider [phone] Bro AWAN MD, Aubrey Lane Unavailable [phone] Jaki Nieves PhD Unavailable [phone] Source Comments In the event that this is information that is protected by federal Confidentiality of Substance User Disorder Patient Records, 42 CFR Part 2 prohibits the unauthorized disclosure of these records.[facility] Encounter Details Date Type Department Care Team (Late Contact Info) Description 04/19/2025 Orders Only NM Transplant Surgery [address] [facility], [address] [place] [address] Colleen Christy Social History Tobacco Use Types [...] [address], [address] [place], [place] [address] Apt confirmed-EH documented as of this encounter Visit Diagnoses Diagnosis 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 Type II diabetes mellitus with complication (CMS-HCC) Type II or unspecified type diabetes mellitus with unspecified complication, not stated as uncontrolled documented in this encounter Care Teams Vp & General Counsel Relationship Specialty Start Date End Date Juan Laguerre MD [address] [facility] [address] [place] [address] PCP - General Family Medicine 01/02/18 Aubrey Crabtree III, MD [address] [facility] [address] [place] [address] Hematology and Medical Oncology 10/01/18 Jaki Nieves, PhD [address] [place], [place] [address] Genetic Counseling 11/27/18 documented as of this encounter
--- OUTSIDE RECORDS SUMMARY | 2025-08-09 10:29 | XMS_ITS | Encounter Summary ---
Author Organization [facility] Address [address] [place] [address] Care Team Providers Care Manager Business Banking Name Role Phone Juan Laguerre MD Primary Care Provider [phone] Bro AWAN MD, Aubrey Lane Unavailable [phone] Jaki Nieves PhD Unavailable [phone] Source Comments In the event that this is information that is protected by federal Confidentiality of Substance User Disorder Patient Records, 42 CFR Part 2 prohibits the unauthorized disclosure of these records.[facility] Encounter Details Date Type Department Care Team (Late Contact Info) Description 02/24/2024 Orders Only NM Transplant Surgery [address] [facility], [address] [place] [address] Delaney Gallegos Social History Tobacco Use Types [...] [facility], [address] Floor [address] [place], [place] [address] Apt confirmed-EH documented as of this encounter Visit Diagnoses Diagnosis Kidney replaced by transplant documented in this encounter Care Teams Manager Business Banking Relationship Specialty Start Date End Date Juan Laguerre MD [address] [facility] [address] [place], [place] [phone] PCP - General Family Medicine 01/02/18 Aubrey Crabtree III, MD [address] [facility] [address] [place], [place] [phone] Hematology and Medical Oncology 10/01/18 Jaki Nieves, PhD [address] [facility] [address] [place], [place] [address] Genetic Counseling 11/27/18 documented as of this encounter
--- OUTSIDE RECORDS SUMMARY | 2025-08-09 10:29 | XMS_ITS | Encounter Summary ---
Author Organization [facility] Address [address] [place] [address] Care Team Providers Care Video Game Engineer Name Role Phone Juan Laguerre MD Primary Care Provider [phone] Bro AWAN MD, Aubrey Lane Unavailable [phone] Jaki Nieves PhD Unavailable [phone] Source Comments In the event that this is information that is protected by federal Confidentiality of Substance User Disorder Patient Records, 42 CFR Part 2 prohibits the unauthorized disclosure of these records.[facility] Encounter Details Date Type Department Care Team (Late st Contact Info) Description 12/24/2022 Orders Only NM Transplant Surgery [address] [facility], [address] [place], [place] [address] Cathleen Gallegos MD [address] [facility] [address] [address] Social History Tobacco Use Types Packs/Day Years [...] Visit [place] Transplant Surgery [address] [facility], [address] [place] [address] Apt confirmed-EH documented as of this encounter Procedures Procedure Name Priority Date/Time Associated Diagnosis Comments URINALYSIS WITH MICROSCOPIC Routine 01/12/2023 7:51 AM NATIONAL INVESTIGATIVE PRODUCER Kidney transplant 01/02/2008 BK VIRUS QUANT VIRAL LOAD, URINE Routine 12/18/2022 6:32 AM NATIONAL INVESTIGATIVE PRODUCER EVEROLIMUS LEVEL Routine 12/18/2022 6:32 AM NATIONAL INVESTIGATIVE PRODUCER MYCOPHENOLIC ACID Routine 12/18/2022 6:3 2 AM NATIONAL INVESTIGATIVE PRODUCER documented in this encounter Results * Urinalysis with Microscopic (01/12/2023 7:51 AM NATIONAL INVESTIGATIVE PRODUCER) UA Glucose - External Negative Negative EXTERNAL [...] pH - External 6.0 EXTERNAL LAB Specific [place], Urine - External 1.017 EXTERNAL LAB UA Protein - External 1+ EXTERNAL LAB Urine VOIDED URINE SPECIMEN / Unknown 01/12/2023 7:51 AM NATIONAL INVESTIGATIVE PRODUCER Narrative EXTERNAL LAB - 01/13/2023 8:21 PM CDT Verified by Monie Siddiqui on 01/13/2023. us Cathleen Gallegos MD URINE ORDERABLES Final Result EXTERNAL LAB * Everolimus Level (12/18/2022 6:32 AM NATIONAL INVESTIGATIVE PRODUCER) Everolimus Level - External 5.9 EXTERNAL LAB 12/18/2022 6:32 AM NATIONAL INVESTIGATIVE PRODUCER Narrative EXTERNAL LAB - 12/23/2022 7:16 AM NATIONAL INVESTIGATIVE PRODUCER Verified by Monie Siddiqui on 12/23/2022. Edwin Del Toro MD CHEMISTRY ORDERABLES Final Result EXTERNAL LAB * BK Virus Quant Viral Load, Urine (12/18/2022 6:32 AM NATIONAL INVESTIGATIVE PRODUCER) BK Quantitation Urine - External 1,380 EXTERNAL LAB 12/18/2022 6:32 AM NATIONAL INVESTIGATIVE PRODUCER Narrative EXTERNAL LAB - 12/23/2022 7:16 AM NATIONAL INVESTIGATIVE PRODUCER Verified by Monie Siddiqui on 12/23/2022. Edwin Del Toro MD URINE ORDERABLES Final Res ult Performing Organization Address [facility]/ZIP Co de Phone Number EXTERNAL LAB * Mycophenolic Acid (12/18/2022 6:32 AM NATIONAL INVESTIGATIVE PRODUCER) Mycophenolic Acid - External 1.9 1.0 - 3.5 ug/mL EXTERNAL LAB 12/18/2022 6:32 AM NATIONAL INVESTIGATIVE PRODUCER Narrative EXTERNAL LAB - 12/23/2022 6:03 AM NATIONAL INVESTIGATIVE PRODUCER Verified by Monie Siddiqui on 12/23/2022. Edwin Del Toro MD CHEMISTRY ORDERABLES Final Result EXTERNAL LAB documented in this encounter Visit Diagnoses Diagnosis Kidney transplant 01/02/2008 documented in this encounter Care Teams Video Game Engineer Relationship Specialty Start Date End Date Juan Laguerre MD [address] [place] [address] PCP - General Family Medicine 01/02/18 Aubrey Crabtree III, MD [address] [place] [address] Hematology and Medical Oncology 10/01/18 Jaki Nieves, PhD [address] [facility] [address] [place] [address] Genetic Counseling 11/27/18 documented as of this encounter
--- OUTSIDE RECORDS SUMMARY | 2025-08-09 10:29 | XMS_ITS | Encounter Summary ---
Author Organization [facility] Address [address] [place] [address] Care Team Providers Care Manufacturing Scheduler Name Role Phone Juan Laguerre MD Primary Care Provider [phone] Bro AWAN MD, Aubrey Lane Unavailable [phone] Jaki Nieves PhD Unavailable [phone] Source Comments In the event that this is information that is protected by federal Confidentiality of Substance User Disorder Patient Records, 42 CFR Part 2 prohibits the unauthorized disclosure of these records.[facility] Encounter Details Date Type Department Care Team (Late Contact Info) Description 04/29/2023 Orders Only NM Transplant Surgery [address] [facility], [address] [place] [address] Mee Michele RN Social History Tobacco Use [...] Upcoming Encounters Date Type Department Care Team ([facility] Contact Info) Description 07/15/2026 1:00 PM CDT Office Visit NM Transplant Surgery [address] [facility], [address] [place], [place] [address] Apt confirmed-EH documented as of this encounter Visit Diagnoses Diagnosis Kidney transplant recipient 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) Liver replaced by transplant Encounter for monitoring immunomodulating therapy Encounter for therapeutic drug monitoring documented in this encounter Care Teams Manufacturing Scheduler Relationship Specialty Start Date End Date Juan Laguerre MD [address] [phone] PCP - General Family Medicine 01/02/18 Aubrey Crabtree III, MD [address] [address] Hematology and Medical Oncology 10/01/18 Jaki Nieves, PhD [address] [facility] [address] [place] [address] Genetic Counseling 11/27/18 documented as of this encounter
--- OUTSIDE RECORDS SUMMARY | 2025-08-09 10:29 | XMS_ITS | Encounter Summary ---
Author Organization [facility] Address [address] [place] [address] Care Team Providers Care Pillow Agent Name Role Phone Juan Laguerre MD Primary Care Provider [phone] Bro AWAN MD, Aubrey Lane Unavailable [phone] Jaki Nieves PhD Unavailable [phone] Source Comments In the event that this is information that is protected by federal Confidentiality of Substance User Disorder Patient Records, 42 CFR Part 2 prohibits the unauthorized disclosure of these records.[facility] Encounter Details Date Type Department Care Team (Late st Contact Info) Description 10/21/2023 Orders Only NM Transplant Surgery [address] [facility], [address] [place], [place] [address] Cathleen Gallegos MD [address] [facility] 19[place], [place] [address] Social History Tobacco Use Types Packs/Day Years [...] [facility], [address] [place], [place] [address] Apt confirmed-EH documented as of this encounter Visit Diagnoses Diagnosis Kidney replaced by transplant documented in this encounter Care Teams Pillow Agent Relationship Specialty Start Date End Date Juan Laguerre MD [address] [facility] [address] [place] [address] PCP - General Family Medicine 01/02/18 Aubrey Crabtree III, MD [address] [facility] [address] [place] [address] Hematology and Medical Oncology 10/01/18 Jaki Nieves, PhD [address] [facility] [address] [place], [place] [address] Genetic Counseling 11/27/18 documented as of this encounter
--- OUTSIDE RECORDS SUMMARY | 2025-08-09 10:29 | XMS_ITS | Encounter Summary ---
Author Organization [facility] Address [address] [place] [address] Care Team Providers Care Travel Agency Manager Name Role Phone Juan Laguerre MD Primary Care Provider [phone] Bro AWAN MD, Aubrey Lane Unavailable [phone] Jaki Nieves PhD Unavailable [phone] Source Comments In the event that this is information that is protected by federal Confidentiality of Substance User Disorder Patient Records, 42 CFR Part 2 prohibits the unauthorized disclosure of these records.[facility] Encounter Details Date Type Department Care Team (Late Contact Info) Description 05/27/2023 Orders Only NM Transplant Surgery [address] [facility], 19th [address] [place] [address] Mee Michele RN Social History Tobacco Use [...] Upcoming Encounters Date Type Department Care Team ([facility] Contact Info) Description 07/15/2026 1:00 PM CDT Office Visit [place] Transplant Surgery [address] [facility], [address] [place], [place] [address] Apt confirmed-EH documented as of this encounter Visit Diagnoses Diagnosis Kidney transplant recipient 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) Liver replaced by transplant Encounter for monitoring immunomodulating therapy Encounter for therapeutic drug monitoring documented in this encounter Care Teams Travel Agency Manager Relationship Specialty Start Date End Date Juan Laguerre MD [address] [phone] PCP - General Family Medicine 01/02/18 Aubrey Crabtree III, MD [address] [address] Hematology and Medical Oncology 10/01/18 Jaki Nieves, PhD [address] [facility] [address] [place] [address] Genetic Counseling 11/27/18 documented as of this encounter
--- OUTSIDE RECORDS SUMMARY | 2025-08-09 10:29 | XMS_ITS | Encounter Summary ---
Author Organization [facility] Address [address] [place] [address] Care Team Providers Care Mechanical Project Manager Name Role Phone Juan Laguerre MD Primary Care Provider [phone] Bro AWAN MD, Aubrey Lane Unavailable [phone] Jaki Nieves PhD Unavailable [phone] Source Comments In the event that this is information that is protected by federal Confidentiality of Substance User Disorder Patient Records, 42 CFR Part 2 prohibits the unauthorized disclosure of these records.[facility] Encounter Details Date Type Department Care Team (Late Contact Info) Description 07/29/2023 Orders Only NM Transplant Surgery [address] [facility], 19th Floor [address] [place] [address] Kristel Chisholm RN Social History Tobacco Use [...] Upcoming Encounters Date Type Department Care Team ([facility] Contact Info) Description 07/15/2026 1:00 PM CDT Office Visit NM Transplant Surgery [address] [facility], 19th Floor [address] [place] [address] Apt confirmed-EH documented as of this encounter Visit Diagnoses Diagnosis 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 transplant documented in this encounter Care Teams Mechanical Project Manager Relationship Specialty Start Date End Date Juan Laguerre MD [address] [facility] [address] [place] [address] PCP - General Family Medicine 01/02/18 Aubrey Crabtree III, MD [address] [facility] [address] [place] [address] Hematology and Medical Oncology 10/01/18 Jaki Nieves, PhD [address] [facility] [address] [place] [address] Genetic Counseling 11/27/18 documented as of this encounter
--- OUTSIDE RECORDS SUMMARY | 2025-08-09 10:29 | XMS_ITS | Encounter Summary ---
Author Organization [facility] Address [address] [place] [address] Care Team Providers Care Furnace Checker Name Role Phone Juan Laguerre MD Primary Care Provider [phone] Bro AWAN MD, Aubrey Lane Unavailable [phone] Jaki Nieves PhD Unavailable [phone] Source Comments In the event that this is information that is protected by federal Confidentiality of Substance User Disorder Patient Records, 42 CFR Part 2 prohibits the unauthorized disclosure of these records.[facility] Encounter Details Date Type Department Care Team (Late Contact Info) Description 12/30/2023 Orders Only NM Transplant Surgery [address] [facility], 19th Floor [address] [place] [address] Delaney Gallegos Social History Tobacco Use Types [...] [facility], 19th Floor [address] [place], [place] [address] Apt confirmed-EH documented as of this encounter Visit Diagnoses Diagnosis Kidney replaced by transplant documented in this encounter Care Teams Furnace Checker Relationship Specialty Start Date End Date Juan Laguerre MD [address] [facility] [address] [place], [place] [id number] PCP - General Family Medicine 01/02/18 Aubrey Crabtree III, MD [address] [facility] [address] [place], [place] [address] Hematology and Medical Oncology 10/01/18 Jaki Nieves, PhD [address] [facility] [address] [place], [place] [address] Genetic Counseling 11/27/18 documented as of this encounter
--- OUTSIDE RECORDS SUMMARY | 2025-08-09 10:29 | XMS_ITS | Encounter Summary ---
Author Organization [facility] Address [address] [place] [address] Care Team Providers Care Process Improvement Specialist Name Role Phone Juan Laguerre MD Primary Care Provider [phone] Bro AWAN MD, Aubrey Lane Unavailable [phone] Jaki Nieves PhD Unavailable [phone] Source Comments In the event that this is information that is protected by federal Confidentiality of Substance User Disorder Patient Records, 42 CFR Part 2 prohibits the unauthorized disclosure of these records.[facility] Encounter Details Date Type Department Care Team (Late Contact Info) Description 03/11/2023 Orders Only NM Transplant Surgery [address] [facility], 19th Floor [address] [place] [address] Kristel Chisholm RN Social History Tobacco Use [...] Upcoming Encounters Date Type Department Care Team ([facility] Contact Info) Description 07/15/2026 1:00 PM CDT Office Visit NM Transplant Surgery [address], [address] [place] [address] Apt confirmed-EH documented as of this encounter [...] transplant documented in this encounter Care Teams Process Improvement Specialist Relationship Specialty Start Date End Date Juan Laguerre MD [address] [place] [address] PCP - General Family Medicine 01/02/18 Aubrey Crabtree III, MD [address] [place] [address] Hematology and Medical Oncology 10/01/18 Jaki Nieves, PhD [address] [facility] [address] [place] [address] Genetic Counseling 11/27/18 documented as of this encounter
--- OUTSIDE RECORDS SUMMARY | 2025-08-09 10:29 | XMS_ITS | Clinical Summary ---
Author Organization [facility] Address [address] [facility] [address] [place] [address] Phone Care Team Providers Care Special Needs Nanny Name Role Phone Juan Laguerre MD Primary Care Provider [phone] Rell Painting MD Unavailable [phone] Bro AWAN MD, Aubrey Ellis Unavailable [phone] Jez Denson MD Unavailable Cathleen Gallegos MD Unavailable Vikram Garza MD Unavailable Treva Edwards MD Unavailable [phone] Sanchez Bills DPM Unavailable [phone] Allergies Active Allergy Reactions Criticality Noted Date [...] Blood Gluc Sensor (FreeStyle Elizabeth 2 Sensor) [facility] USE DIRECTED. 2 Active GlucaGen HypoKit 1 [...] PM CDT Lab [facility] [address] [address] Lab, [facility] 08/10/2025 1:00 PM CDT Ancillary Procedure [facility] [address] [address] 08/17/2025 9:00 AM CDT Office Visit [facility] [address] [address] Tyler Haile MD [address] [place] [address] Health Maintenance Due Date Last Done Comments [...] this topic Medical Devices Implanted Type Area Counter Sales Representative Device Identifier Shelf Expiration Date Model / Serial / Lot Bone Putty Allofuse 1cc [id number] - [id number] Implanted:Qty: 1 on 06/29/2020 by Sanchez Bills DPM at [facility] IMPLANT Right: Foot ALLOSODARIAN 01/23/2022 [id number] / / [id number] Heart Valve Implanted:Qty: 1 on 12/29/2018 Description:LAU DANNA 3 HEART VALVE 29 MM MR COND 1.5T NORMAL MODE Procedures Procedure Name Priority Date/Time Associated Diagnosis Comments CMP (COMPREHENSIVE METABOLIC PANEL) Routine 08/10/2024 9:24 AM CDT 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 Blood Urea Nitrogen 31(H) 7 - 25 mg/dL [facility] Creatinine 1.6(H) 0.7 - 1.3 mg/dL [facility] Sodium 137 136 - 145 mEq/L [facility] Potassium 4.5 3.5 - 5.1 mEq/L [facility] Chloride 102 98 - 107 mEq/L [facility] Bicarbonate 27 21 - 31 mEq/L [facility] Total Bilirubin 0.6 0.3 - 1.0 mg/dL [facility] Alk. Phosphatase 77 34 - 104 U/L [facility] Aspartate Aminotransferase 13 13 - 39 U/L [facility] Alanine Aminotransferase 14 7 - 52 U/L [facility] Total Protein 6.8 6.4 - 8.9 g/dL [facility] Albumin 3.7 3.5 - 5.7 g/dL [facility] Calcium 9.3 8.6 - 10.3 mg/dL [facility] Anion Gap 12.5 7.0 - 15.0 mEq/L [facility] Globulin 3.1 2.0 - 3.5 g/dL [facility] EGFR 48(L) >60 ml/min/1. 73m2 [facility] Comment: This eGFR is calculated using 2020 CKD-EPI Creatinine equation without race modifier based on the NKF-ASN task force recommendations Blood 08/10/2024 9:24 AM CDT [facility] - 08/10/2024 10:45 AM CDT Release to patient->Immediate IS THE PATIENT REQUIRED TO BE FASTING FOR 8 HOURS?->No Aubrey Crabtree III, MD CHEMISTRY ORDERABLES Final Result [facility] [address] [place] [address], * (ABNORMAL) HEMOGLOBIN A1C W/ ESTIMATED GLUCOSE (11/15/2022 9:54 AM PHOTO EDITOR) HGB-A1C 9.5(H) 3.8 - 5.6 % 11/15/2022 11:51 AM PHOTO EDITOR [facility] Blood Venipuncture / Unknown 11/15/2022 9:54 AM PHOTO EDITOR 11/15/2022 10:05 AM PHOTO EDITOR [facility] - 11/15/2022 11:51 AM PHOTO EDITOR Per ADA recommendations, HbA1c <7% is the goal for glycemic control, >8% suggests additional action needed. (Siemens Dimension [place] HbA1c method) This assay measures any hemoglobin [...] ORDERABLES Final Resul t Performing Organization Address [facility] [address] * PSA SCREEN (09/11/2022 6:10 AM PHOTO EDITOR) PSA SCREEN, TOTAL 0.44 0.00 - 4.00 ng/mL 09/11/2022 9:02 AM PHOTO EDITOR [facility] Comment:Performed by chemilu minometric assay on the Siemens ADVIA Centaur. Values obtained with different methods cannot be used interchangeably for patient monitoring. PSA is not a specific test for prostatic carcinoma and can be elevated with benign prostatic disease or following prostatic manipulation. Heterophilic antibodies may interfere with this assay. Blood Venipuncture / Unknown 09/11/2022 6:10 AM PHOTO EDITOR 09/11/2022 7:14 AM PHOTO EDITOR Juan Laguerre MD CHEMISTRY ORDERABLES Final Resu lt Performing Organization Address [facility] [address] * CT CHEST W/O CONTRAST (11/02/2018 8:42 PM PHOTO EDITOR) Anatomical Region Laterality Modality Chest N/A Computed Tomogra phy 11/02/2018 8:53 PM PHOTO EDITOR Narrative 11/04/2018 12:08 PM PHOTO EDITOR ORDERING PHYSICIAN Josi aRi DATE AND TIME OF DICTATION RADIOLOGIST 11/02/2018 [...] study. DICTATED BY: Jennifer Bradford MD DD/RITO /[id number] Josi Rai APRN, [place] IMG CT ORDERABLES Final Result from Last 3 Months or Most Recently Relevant to Health Maintenance Insurance [facility] Advance Directives * Full Code (Latest Code Status on File) Date Activated Date Inactivated Comments 09/08/2020 5:23 PM 09/12/2020 6:21 PM CPR-Full Joe atment: FULL ARREST: Attempt Resuscitation/CPR wit intubation and mechanical ventilation. PRE-ARREST: Use entire range of life support measures to stabilize the patient. Care Teams Special Needs Nanny Relationship Specialty Start Date End Date Juan Laguerre MD [address] [place] [address] [place] [address] PCP - General Family Medicine 10/05/16 Rell Painting MD [address] [place], [place] [address] Consulting Physician General Surgery 10/22/18 Aubrey Crabtree III, MD [address] [facility] [address] [place] [address] Medical Oncologist Internal Medicine 11/06/18 Jez Denson MD [facility] [address] [facility] [place] [address] Consulting Physician Cardiovascular Disease - Cardiology 01/19/19 Cathleen Gallegos MD [address] [address] Consulting Physician Nephrology 01/19/19 Vikram Garza MD [address] [phone] Consulting Physician Cardiovascular Disease - Cardiology 01/19/19 Treva Edwards MD [address] [place] [address] Consulting Physician Internal Medicine 08/31/20 Sanchez Bills DPM [address] [facility] [address] [place] [address] Consulting Physician Podiatry 08/31/20
--- OUTSIDE RECORDS SUMMARY | 2025-08-09 10:29 | XMS_ITS | Encounter Summary ---
Author Organization [facility] Address [address] [place] [address] Care Team Providers Care Order Checker Packer Processer Name Role Phone Juan Laguerre MD Primary Care Provider [phone] Bro AWAN MD, Aubrey Lane Unavailable [phone] Jaki Nieves PhD Unavailable [phone] Source Comments In the event that this is information that is protected by federal Confidentiality of Substance User Disorder Patient Records, 42 CFR Part 2 prohibits the unauthorized disclosure of these records.[facility] Encounter Details Date Type Department Care Team (Late st Contact Info) Description 05/11/2024 Orders Only NM Transplant Surgery [address] [facility], [address]th [address] [place], [place] [address] Cathleen Gallegos MD [address] [facility] [address], [place] [address] Social History Tobacco Use Types Packs/Day Years [...] [facility] [address] [place] [address] Apt confirmed-EH documented as of this encounter [...] monitoring documented in this encounter Care Teams Order Checker Packer Processer Relationship Specialty Start Date End Date Juan Laguerre MD [address] [facility] [address] [place] [address] PCP - General Family Medicine 01/02/18 Aubrey Crabtree III, MD [address] [facility] [address] [place] [address] Hematology and Medical Oncology 10/01/18 Jaki Nieves, PhD [address] [facility] [address] [place] [address] Genetic Counseling 11/27/18 documented as of this encounter
--- OUTSIDE RECORDS SUMMARY | 2025-08-09 10:29 | XMS_ITS | Encounter Summary ---
Author Organization [facility] Address [address] [place] [address] Care Team Providers Care Lean Manufacturing Specialist Name Role Phone Juan Laguerre MD Primary Care Provider [phone] Bro AWAN MD, Aubrey Lane Unavailable [phone] Jaki Nieves PhD Unavailable [phone] Source Comments In the event that this is information that is protected by federal Confidentiality of Substance User Disorder Patient Records, 42 CFR Part 2 prohibits the unauthorized disclosure of these records.[facility] Encounter Details Date Type Department Care Team (Late st Contact Info) Description 04/27/2024 Orders Only NM Transplant Surgery [address] [facility], 19th Floor [address] [place], [place] [address] Cathleen Gallegos MD [address] [facility] [address], [place] [address] Social History Tobacco Use Types Packs/Day Years [...] [facility], 19[facility] Floor [address] [place] [address] Apt confirmed-EH documented as of this encounter [...] 3,721 850 - 3,900 cells/uL EXTERNAL LAB [facility] - External 1,240(H) 200 - 950 [...] monitoring documented in this encounter Care Teams Lean Manufacturing Specialist Relationship Specialty Start Date End Date Juan Laguerre MD [address] [facility] [address] [place], [place] [address] PCP - General Family Medicine 01/02/18 Aubrey Crabtree III, MD [address] [facility] [address] [place] [address] Hematology and Medical Oncology 10/01/18 Jaki Nieves, PhD [address] [facility] [address] [place] [address] Genetic Counseling 11/27/18 documented as of this encounter
--- OUTSIDE RECORDS SUMMARY | 2025-08-09 10:29 | XMS_ITS | Encounter Summary ---
Author Organization [facility] Address [address] [place] [address] Care Team Providers Care Metal Sorter Name Role Phone Juan Laguerre MD Primary Care Provider [phone] Bro AWAN MD, Aubrey Lane Unavailable [phone] Jaki Nieves PhD Unavailable [phone] Source Comments In the event that this is information that is protected by federal Confidentiality of Substance User Disorder Patient Records, 42 CFR Part 2 prohibits the unauthorized disclosure of these records.[facility] Encounter Details Date Type Department Care Team (Late st Contact Info) Description 03/02/2024 Orders Only NM Transplant Surgery [address] [facility], 19th Floor [address] [place], [place] [address] Cathleen Gallegos MD [address] [facility] [address] [address] Social History Tobacco Use Types Packs/Day Years [...] Visit NM Transplant Surgery [address] [facility], 19th Floor [address] [place] [address] Apt confirmed-EH documented as of this encounter [...] monitoring documented in this encounter Care Teams Metal Sorter Relationship Specialty Start Date End Date Juan Laguerre MD [address] [address] PCP - General Family Medicine 01/02/18 Aubrey Crabtree III, MD [address] [address] Hematology and Medical Oncology 10/01/18 Jaki Nieves, PhD [address] [facility] [address] [place] [address] Genetic Counseling 11/27/18 documented as of this encounter
--- OUTSIDE RECORDS SUMMARY | 2025-08-09 10:29 | XMS_ITS | Encounter Summary ---
Author Organization [facility] Address [address] [place] [address] Care Team Providers Care Children'S Lunchroom Supervisor Name Role Phone Juan Laguerre MD Primary Care Provider [phone] Bro AWAN MD, Aubrey Lane Unavailable [phone] Jaki Nieves PhD Unavailable [phone] Source Comments In the event that this is information that is protected by federal Confidentiality of Substance User Disorder Patient Records, 42 CFR Part 2 prohibits the unauthorized disclosure of these records.[facility] Encounter Details Date Type Department Care Team (Late Contact Info) Description 04/15/2023 Orders Only NM Transplant Surgery [address] [facility], 19th Floor [address] [place] [address] Mee Michele RN Social History Tobacco Use [...] Upcoming Encounters Date Type Department Care Team ([facility] Contact Info) Description 07/15/2026 1:00 PM CDT Office Visit NM Transplant Surgery [address] [facility], 19th Floor [address] [place], [place] [address] Apt confirmed-EH documented as of this encounter Visit Diagnoses Diagnosis Kidney transplant recipient 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) Liver replaced by transplant Encounter for monitoring immunomodulating therapy Encounter for therapeutic drug monitoring documented in this encounter Care Teams Children'S Lunchroom Supervisor Relationship Specialty Start Date End Date Juan Laguerre MD [address] [id number] PCP - General Family Medicine 01/02/18 Aubrey Crabtree III, MD [address] [address] Hematology and Medical Oncology 10/01/18 Jaki Nieves, PhD [address] [facility] [address] [place] [address] Genetic Counseling 11/27/18 documented as of this encounter
--- OUTSIDE RECORDS SUMMARY | 2025-08-09 10:29 | XMS_ITS | Encounter Summary ---
Author Organization [facility] Address [address] [place] [address] Care Team Providers Care Sanipractic Physician Name Role Phone Juan Laguerre MD Primary Care Provider [phone] Bro AWAN MD, Aubrey Lane Unavailable [phone] Jaki Nieves PhD Unavailable [phone] Source Comments In the event that this is information that is protected by federal Confidentiality of Substance User Disorder Patient Records, 42 CFR Part 2 prohibits the unauthorized disclosure of these records.[facility] Encounter Details Date Type Department Care Team (Late Contact Info) Description 05/10/2025 Orders Only NM Transplant Surgery [address] [facility], 19th Floor [address] [place] [address] Colleen Christy Social History Tobacco Use Types [...] [address], [address] [place], [place] [address] Apt confirmed-EH documented as of this encounter Visit Diagnoses Diagnosis 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 Type II diabetes mellitus with complication (CMS-HCC) Type II or unspecified type diabetes mellitus with unspecified complication, not stated as uncontrolled documented in this encounter Care Teams Sanipractic Physician Relationship Specialty Start Date End Date Juan Laguerre MD [address] [facility] [address] [place] [address] PCP - General Family Medicine 01/02/18 Aubrey Crabtree III, MD [address] [facility] [address] [place] [address] Hematology and Medical Oncology 10/01/18 Jaki Nieves, PhD [address] [place], [place] [address] Genetic Counseling 11/27/18 documented as of this encounter
--- OUTSIDE RECORDS SUMMARY | 2025-08-09 10:29 | XMS_ITS | Encounter Summary ---
Author Organization [facility] Address [address] [place] [address] Care Team Providers Care Asbestos Hazard Abatement Worker Name Role Phone Juan Laguerre MD Primary Care Provider [phone] Bro AWAN MD, Aubrey Lane Unavailable [phone] Jaki Nieves PhD Unavailable [phone] Source Comments In the event that this is information that is protected by federal Confidentiality of Substance User Disorder Patient Records, 42 CFR Part 2 prohibits the unauthorized disclosure of these records.[facility] Encounter Details Date Type Department Care Team (Late Contact Info) Description 05/20/2023 Orders Only NM Transplant Surgery [address] [facility], 19th Floor [address] [place] [address] Mee Michele RN Social History Tobacco Use [...] Care Team ([facility] Contact Info) Description 07/15/2026 1:00 PM CDT Office Visit [place] Transplant Surgery [address] [facility], 19th Floor [address] [place], [place] [address] Apt confirmed-EH documented as of this encounter Visit Diagnoses Diagnosis Kidney transplant recipient 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) Liver replaced by transplant Encounter for monitoring immunomodulating therapy Encounter for therapeutic drug monitoring documented in this encounter Care Teams Asbestos Hazard Abatement Worker Relationship Specialty Start Date End Date Juan Laguerre MD [address] [id number] PCP - General Family Medicine 01/02/18 Aubrey Crabtree III, MD [address] [address] Hematology and Medical Oncology 10/01/18 Jaki Nieves, PhD [address] [facility] [address] [place] [address] Genetic Counseling 11/27/18 documented as of this encounter
--- OUTSIDE RECORDS SUMMARY | 2025-08-09 10:29 | XMS_ITS | Encounter Summary ---
Author Organization [facility] Address [address] [place] [address] Care Team Providers Care Blackjack Pit Boss Name Role Phone Juan Laguerre MD Primary Care Provider [phone] Bro AWAN MD, Aubrey Lane Unavailable [phone] Jaki Nieves PhD Unavailable [phone] Source Comments In the event that this is information that is protected by federal Confidentiality of Substance User Disorder Patient Records, 42 CFR Part 2 prohibits the unauthorized disclosure of these records.[facility] Encounter Details Date Type Department Care Team (Late Contact Info) Description 08/10/2024 Orders Only NM Transplant Surgery [address] [facility], 19th Floor [address] [place] [address] Delaney Gallegos Social History Tobacco Use Types [...] Office Visit [place] Transplant Surgery [address] [facility], 19th Floor [address] [place], [place] [address] Apt confirmed-EH documented as of this encounter Visit Diagnoses Diagnosis Kidney replaced by transplant documented in this encounter Care Teams Blackjack Pit Boss Relationship Specialty Start Date End Date Juan Laguerre MD [address] [facility] [address] [place], [place] [address] PCP - General Family Medicine 01/02/18 Aubrey Crabtree III, MD [address] [facility] [address] [place], [place] [address] Hematology and Medical Oncology 10/01/18 Jaki Nieves, PhD [address] [facility] [address] [place], [place] [address] Genetic Counseling 11/27/18 documented as of this encounter
--- OUTSIDE RECORDS SUMMARY | 2025-08-09 10:29 | XMS_ITS ---
Author Organization [facility] Address [address] [facility] [place] [address] Phone Care Team Providers Care Supervisor Electronics Processing Name Role Phone Juan Laguerre MD Primary Care Provider [phone] Rell Painting MD Unavailable [phone] Bro AWAN MD, Aubrey Ellis Unavailable Jez Denson MD Unavailable Cathleen Gallegos MD Unavailable Vikram Garza MD Unavailable Treva Edwards MD Unavailable [phone] Sanchez Bills DPM Unavailable Active Problems [...]
--- OUTSIDE RECORDS SUMMARY | 2025-08-09 10:29 | XMS_ITS | Encounter Summary ---
Author Organization [facility] Address [address] [place] [address] Care Team Providers Care Statistical Assistant Name Role Phone Juan Laguerre MD Primary Care Provider [phone] Bro AWAN MD, Aubrey Lane Unavailable [phone] Jaki Nieves PhD Unavailable [phone] Source Comments In the event that this is information that is protected by federal Confidentiality of Substance User Disorder Patient Records, 42 CFR Part 2 prohibits the unauthorized disclosure of these records.[facility] Encounter Details Date Type Department Care Team (Late Contact Info) Description 03/25/2023 Orders Only NM Transplant Surgery [address] [facility], 19th [address] [place] [address] Mee Michele RN Social History Tobacco Use [...] Upcoming Encounters Date Type Department Care Team ([facility] Contact Info) Description 07/15/2026 1:00 PM CDT Office Visit NM Transplant Surgery [address] [facility], [address]th [address] [place], [place] [address] Apt confirmed-EH documented as of this encounter Visit Diagnoses Diagnosis Kidney transplant recipient 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
--- OUTSIDE RECORDS SUMMARY | 2025-08-09 10:29 | XMS_ITS | Encounter Summary ---
Author Organization [facility] Address [address] [place] [address] Care Team Providers Care Knit Goods Cutter Hand Name Role Phone Juan Laguerre MD Primary Care Provider [phone] Bro AWAN MD, Aubrey Lane Unavailable [phone] Jaki Nieves PhD Unavailable [phone] Source Comments In the event that this is information that is protected by federal Confidentiality of Substance User Disorder Patient Records, 42 CFR Part 2 prohibits the unauthorized disclosure of these records.[facility] Encounter Details Date Type Department Care Team (Late Contact Info) Description 03/23/2024 Orders Only NM Transplant Surgery [address] [facility], 19th Floor [address] [place] [address] Delaney Gallegos Social History Tobacco Use Types [...] - [facility], 19th Floor [address] [place], [place] [address] Apt confirmed-EH documented as of this encounter Visit Diagnoses Diagnosis Kidney replaced by transplant documented in this encounter Care Teams Knit Goods Cutter Hand Relationship Specialty Start Date End Date Juan Laguerre MD [address] [facility] [address] [place], [place] [phone] PCP - General Family Medicine 01/02/18 Aubrey Crabtree III, MD [address] [facility] [address] [place], [place] [address] Hematology and Medical Oncology 10/01/18 Jaki Nieves, PhD [address] [facility] [address] [place], [place] [address] Genetic Counseling 11/27/18 documented as of this encounter
--- OUTSIDE RECORDS SUMMARY | 2025-08-09 10:29 | XMS_ITS | Encounter Summary ---
Author Organization [facility] Address [address] [place] [address] Care Team Providers Care Civil Engineering Draftsperson Name Role Phone Juan Laguerre MD Primary Care Provider [phone] Bro AWAN MD, Aubrey Lane Unavailable [phone] Jaki Nieves PhD Unavailable [phone] Source Comments In the event that this is information that is protected by federal Confidentiality of Substance User Disorder Patient Records, 42 CFR Part 2 prohibits the unauthorized disclosure of these records.[facility] Encounter Details Date Type Department Care Team (Late st Contact Info) Description 08/26/2023 Orders Only NM Transplant Surgery [address] [facility], 19th Floor [address] [place], [place] [address] Cathleen Gallegos MD [address] [facility] [address], [place] [address] Social History Tobacco Use Types Packs/Day Years [...] Surgery [address] [facility], 19th Floor [address] [place], [place] [address] Apt confirmed-EH documented as of this encounter Visit Diagnoses Diagnosis Kidney replaced by transplant documented in this encounter Care Teams Civil Engineering Draftsperson Relationship Specialty Start Date End Date Juan Laguerre MD [address] [facility] [address] [place] [address] PCP - General Family Medicine 01/02/18 Aubrey Crabtree III, MD [address] [facility] [address] [place] [address] Hematology and Medical Oncology 10/01/18 Jaki Nieves, PhD [address] [facility] [address] [place], [place] [address] Genetic Counseling 11/27/18 documented as of this encounter
--- OUTSIDE RECORDS SUMMARY | 2025-08-09 10:29 | XMS_ITS | Encounter Summary ---
Author Organization [facility] Address [address] [place] [address] Care Team Providers Care Director Prison Name Role Phone Juan Laguerre MD Primary Care Provider [phone] Bro AWAN MD, Aubrey Lane Unavailable [phone] Jaki Nieves PhD Unavailable [phone] Source Comments In the event that this is information that is protected by federal Confidentiality of Substance User Disorder Patient Records, 42 CFR Part 2 prohibits the unauthorized disclosure of these records.[facility] Encounter Details Date Type Department Care Team (Late Contact Info) Description 04/26/2025 Orders Only NM Transplant Surgery [address] [facility], 19th Floor [address] [place] [address] Colleen Christy Social History Tobacco Use Types [...] [address], [address] [place], [place] [address] Apt confirmed-EH documented as of this encounter Visit Diagnoses Diagnosis 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 Type II diabetes mellitus with complication (CMS-HCC) Type II or unspecified type diabetes mellitus with unspecified complication, not stated as uncontrolled documented in this encounter Care Teams Director Prison Relationship Specialty Start Date End Date Juan Laguerre MD [address] [facility] [address] [place] [address] PCP - General Family Medicine 01/02/18 Aubrey Crabtree III, MD [address] [facility] [address] [place] [address] Hematology and Medical Oncology 10/01/18 Jaki Nieves, PhD [address] [place], [place] [address] Genetic Counseling 11/27/18 documented as of this encounter
--- OUTSIDE RECORDS SUMMARY | 2025-08-09 10:29 | XMS_ITS | Encounter Summary ---
Author Organization [facility] Address [address] [place] [address] Care Team Providers Care Supervisor Lime Name Role Phone Juan Laguerre MD Primary Care Provider [phone] Bro AWAN MD, Aubrey Lane Unavailable [phone] Jaki Nieves PhD Unavailable [phone] Source Comments In the event that this is information that is protected by federal Confidentiality of Substance User Disorder Patient Records, 42 CFR Part 2 prohibits the unauthorized disclosure of these records.[facility] Encounter Details Date Type Department Care Team (Late st Contact Info) Description 04/19/2025 Orders Only NM Transplant Surgery [address] [facility], 19th Floor [address] [place], [place] [address] Cathleen Gallegos MD [address] [facility] [address] [address] Social History Tobacco Use Types Packs/Day Years [...] [facility], 19th Floor [address] [place] [address] Apt confirmed-EH documented as of this encounter [...] monitoring documented in this encounter Care Teams Supervisor Lime Relationship Specialty Start Date End Date Juan Laguerre MD [address] [facility] [address] [place] [address] PCP - General Family Medicine 01/02/18 Aubrey Crabtree III, MD [address] [address] Hematology and Medical Oncology 10/01/18 Jaki Nieves, PhD [address] [facility] [address] [place], [place] [address] Genetic Counseling 11/27/18 documented as of this encounter
--- OUTSIDE RECORDS SUMMARY | 2025-08-09 10:29 | XMS_ITS | Encounter Summary ---
Author Organization [facility] Address [address] [place] [address] Care Team Providers Care Instructor Correspondence School Name Role Phone Juan Laguerre MD Primary Care Provider [phone] Bro AWAN MD, Aubrey Lane Unavailable [phone] Jaki Nieves PhD Unavailable [phone] Source Comments In the event that this is information that is protected by federal Confidentiality of Substance User Disorder Patient Records, 42 CFR Part 2 prohibits the unauthorized disclosure of these records.[facility] Encounter Details Date Type Department Care Team (Late Contact Info) Description 05/06/2023 Orders Only NM Transplant Surgery [address] [facility], 19th Floor [address] [place] [address] Mee Michele RN Social History Tobacco Use [...] Upcoming Encounters Date Type Department Care Team ([facility] Contact Info) Description 07/15/2026 1:00 PM CDT Office Visit [place] Transplant Surgery [address] [facility], 19th Floor [address] [place], [place] [address] Apt confirmed-EH documented as of this encounter Visit Diagnoses Diagnosis Kidney transplant recipient 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
--- OUTSIDE RECORDS SUMMARY | 2025-08-09 10:29 | XMS_ITS | Encounter Summary ---
Author Organization [facility] Address [address] [place] [address] Care Team Providers Care District Fire Management Officer Name Role Phone Juan Laguerre MD Primary Care Provider [phone] Bro AWAN MD, Aubrey Lane Unavailable [phone] Jaki Nieves PhD Unavailable [phone] Source Comments In the event that this is information that is protected by federal Confidentiality of Substance User Disorder Patient Records, 42 CFR Part 2 prohibits the unauthorized disclosure of these records.[facility] Encounter Details Date Type Department Care Team (Late st Contact Info) Description 03/18/2023 Orders Only NM Transplant Surgery [address] [facility], 19th Floor [address] [place], [place] [address] Cathleen Gallegos MD [address] [facility] [address], [place] [address] Social History Tobacco Use Types [...] [facility], 19th Floor [address] [place] [address] Apt confirmed-EH documented as of this encounter Visit Diagnoses Diagnosis Kidney transplant 01/02/2008 documented in this encounter Care Teams District Fire Management Officer Relationship Specialty Start Date End Date Juan Laguerre MD [address] [facility] [address] [place], [place] [address] PCP - General Family Medicine 01/02/18 Aubrey Crabtree III, MD [address] [facility] [address] [place] [address] Hematology and Medical Oncology 10/01/18 Jaki Nieves, PhD [address] [facility] [address] [place], [place] [address] Genetic Counseling 11/27/18 documented as of this encounter
--- OUTSIDE RECORDS SUMMARY | 2025-08-09 10:29 | XMS_ITS | Encounter Summary ---
Author Organization [facility] Address [address] [place] [address] Care Team Providers Care College And Career Counselor Name Role Phone Juan Laguerre MD Primary Care Provider [phone] Bro AWAN MD, Aubrey Lane Unavailable [phone] Jaki Nieves PhD Unavailable [phone] Source Comments In the event that this is information that is protected by federal Confidentiality of Substance User Disorder Patient Records, 42 CFR Part 2 prohibits the unauthorized disclosure of these records.[facility] Encounter Details Date Type Department Care Team (Late Contact Info) Description 04/22/2023 Orders Only NM Transplant Surgery [address] [facility], 19th Floor [address] [place] [address] Mee Michele RN Social History Tobacco Use [...] Upcoming Encounters Date Type Department Care Team ([facility] Contact Info) Description 07/15/2026 1:00 PM CDT Office Visit NM Transplant Surgery [address] [facility], 19th Floor [address] [place], [place] [address] Apt confirmed-EH documented as of this encounter Visit Diagnoses Diagnosis Kidney transplant recipient 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
--- OUTSIDE RECORDS SUMMARY | 2025-08-09 10:29 | XMS_ITS | Encounter Summary ---
Author Organization [facility] Address [address] [place] [address] Care Team Providers Care Warp Worker Name Role Phone Juan Laguerre MD Primary Care Provider [phone] Bro AWAN MD, Aubrey Lane Unavailable [phone] Jaki Nieves PhD Unavailable [phone] Source Comments In the event that this is information that is protected by federal Confidentiality of Substance User Disorder Patient Records, 42 CFR Part 2 prohibits the unauthorized disclosure of these records.[facility] Encounter Details Date Type Department Care Team (Late Contact Info) Description 07/13/2024 Orders Only NM Transplant Surgery [address] [facility], 19th Floor [address] [place] [address] Delaney Gallegos Social History Tobacco Use Types [...] [facility], 19th Floor [address] [place], [place] [address] Apt confirmed-EH documented as of this encounter Visit Diagnoses Diagnosis Kidney replaced by transplant documented in this encounter Care Teams Warp Worker Relationship Specialty Start Date End Date Juan Laguerre MD [address] [facility] [address] [place], [place] [phone] PCP - General Family Medicine 01/02/18 Aubrey Crabtree III, MD [address] [facility] [address] [place], [place] [address] Hematology and Medical Oncology 10/01/18 Jaki Nieves, PhD [address] [facility] [address] [place], [place] [address] Genetic Counseling 11/27/18 documented as of this encounter
--- OUTSIDE RECORDS SUMMARY | 2025-08-09 10:29 | XMS_ITS | Encounter Summary ---
Author Organization [facility] Address [address] [place] [address] Care Team Providers Care Solar Manufacturer'S Representative Name Role Phone Juan Laguerre MD Primary Care Provider [phone] Bro AWAN MD, Aubrey Lane Unavailable [phone] Jaki Nieves PhD Unavailable [phone] Source Comments In the event that this is information that is protected by federal Confidentiality of Substance User Disorder Patient Records, 42 CFR Part 2 prohibits the unauthorized disclosure of these records.[facility] Encounter Details Date Type Department Care Team (Late Contact Info) Description 06/03/2023 Orders Only NM Transplant Surgery [address] [facility], 19th Floor [address] [place] [address] Kristel Chisholm RN Social History Tobacco Use [...] Office Visit NM Transplant Surgery [address] [facility], 19th Floor [address] [place] [address] Apt confirmed-EH documented as of this encounter Visit Diagnoses Diagnosis 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
--- OUTSIDE RECORDS SUMMARY | 2025-08-09 10:29 | XMS_ITS | Encounter Summary ---
Author Organization [facility] Address [address] [place] [address] Care Team Providers Care Dogman/Woman Name Role Phone Juan Laguerre MD Primary Care Provider [phone] Bro AWAN MD, Aubrey Lane Unavailable [phone] Jaki Nivees PhD Unavailable [phone] Source Comments In the event that this is information that is protected by federal Confidentiality of Substance User Disorder Patient Records, 42 CFR Part 2 prohibits the unauthorized disclosure of these records.[facility] Encounter Details Date Type Department Care Team (Late st Contact Info) Description 01/21/2023 Orders Only NM Transplant Surgery [address] [facility], 19th Floor [address] [place], [place] [address] Cathleen Gallegos MD [address] [facility] [address], [place] [address] Social History Tobacco Use Types Packs/Day Years [...] [facility], 19th Floor [address] [place] [address] Apt confirmed-EH documented as of this encounter Visit Diagnoses Diagnosis Kidney transplant 01/02/2008 documented in this encounter Care Teams Dogman/Woman Relationship Specialty Start Date End Date Juan Laguerre MD [address] [facility] [address] [place], [place] [address] PCP - General Family Medicine 01/02/18 Aubrey Crabtree III, MD [address] [facility] [address] [place] [address] Hematology and Medical Oncology 10/01/18 Jaki Nieves, PhD [address] [facility] [address] [place], [place] [address] Genetic Counseling 11/27/18 documented as of this encounter
--- OUTSIDE RECORDS SUMMARY | 2025-08-09 10:29 | XMS_ITS | Encounter Summary ---
Author Organization [facility] Address [address] [place] [address] Care Team Providers Care Promotion Producer Name Role Phone Juan Laguerre MD Primary Care Provider [phone] Bro AWAN MD, Aubrey Lane Unavailable [phone] Jaki Nieves PhD Unavailable [phone] Source Comments In the event that this is information that is protected by federal Confidentiality of Substance User Disorder Patient Records, 42 CFR Part 2 prohibits the unauthorized disclosure of these records.[facility] Encounter Details Date Type Department Care Team (Late st Contact Info) Description 09/23/2023 Orders Only NM Transplant Surgery [address] [facility], 19th Floor [address] [place], [place] [address] Cathleen Gallegos MD [address] [facility] [address], [place] [address] Social History Tobacco Use Types Packs/Day Years [...] [facility], 19th Floor [address] [place] [address] Apt confirmed-EH documented as of this encounter Procedures Procedure Name Priority Date/Time Associated Diagnosis Comments EVEROLIMUS LEVEL Routine 10/15/2023 7:26 AM COLOR RECEIVER documented in this encounter Results * Everolimus Level (10/15/2023 7:26 AM COLOR RECEIVER) Everolimus Level - External 7.3 EXTERNAL LAB 10/15/2023 7:26 AM COLOR RECEIVER Narrative EXTERNAL LAB - 10/18/2023 6:00 AM COLOR RECEIVER Verified by Koki Burks on 10/18/2023. us Cathleen Gallegos MD CHEMISTRY ORDERABLES Final Resul t EXTERNAL LAB documented in this encounter Visit Diagnoses Diagnosis Kidney replaced by transplant documented in this encounter Care Teams Promotion Producer Relationship Specialty Start Date End Date Juan Laguerre MD [address] [place] [address] PCP - General Family Medicine 01/02/18 Aubrey Crabtree III, MD [address] [place] [address] Hematology and Medical Oncology 10/01/18 Jaki Nieves, PhD [address] [facility] [address] [place] [address] Genetic Counseling 11/27/18 documented as of this encounter
--- OUTSIDE RECORDS SUMMARY | 2025-08-09 10:29 | XMS_ITS | Encounter Summary ---
Author Organization [facility] Address [address] [place] [address] Care Team Providers Care Pesticide Control Inspector Name Role Phone Juan Laguerre MD Primary Care Provider [phone] Bro AWAN MD, Aubrey Lane Unavailable [phone] Jaki Nieves PhD Unavailable [phone] Source Comments In the event that this is information that is protected by federal Confidentiality of Substance User Disorder Patient Records, 42 CFR Part 2 prohibits the unauthorized disclosure of these records.[facility] Encounter Details Date Type Department Care Team (Late st Contact Info) Description 10/28/2023 Orders Only NM Transplant Surgery [address] [facility], 19th Floor [address] [place], [place] [address] Cathleen Glalegos MD [address] [facility] [address] [address] Social History Tobacco Use Types Packs/Day Years [...] [facility], 19th Floor [address] [place] [address] Apt confirmed-EH documented as of this encounter Procedures Procedure Name Priority Date/Time Associated Diagnosis Comments EVEROLIMUS LEVEL Routine 11/28/2023 8:40 AM CLINICAL ACADEMIC ALLERGIST OP URINALYSIS WITH MICROSCOPIC, REFLEX TO CULTURE Routine 11/28/2023 8:40 AM CLINICAL ACADEMIC ALLERGIST documented in this encounter Results * Everolimus Level (11/28/2023 8:40 AM CLINICAL ACADEMIC ALLERGIST) Everolimus Level - External 4.1 EXTERNAL LAB 11/28/2023 8:40 AM CLINICAL ACADEMIC ALLERGIST Narrative EXTERNAL LAB - 12/18/2023 8:42 AM CLINICAL ACADEMIC ALLERGIST Verified by Koki Burks on 12/18/2023. us Noe Keyes MD CHEMISTRY ORDERABLES Final R esult EXTERNAL LAB * Urinalysis w/Microscopic, reflex culture (11/28/2023 8:40 AM CLINICAL ACADEMIC ALLERGIST) UA Color - External YELLOW YELLOW EXTERNAL LAB UA Appearance - External CLEAR CLEAR EXTERNAL LAB Specific [place], Urine - External 1.020 1.001 - 1.035 [...] SEEN /LPF EXTERNAL LAB 11/28/2023 8:40 AM CLINICAL ACADEMIC ALLERGIST Narrative EXTERNAL LAB - 12/18/2023 8:42 AM CLINICAL ACADEMIC ALLERGIST Verified by Koki Burks on 12/18/2023. us Noe Keyse MD URINE ORDERABLES Final Resul t EXTERNAL LAB documented in this encounter Visit Diagnoses Diagnosis Kidney replaced by transplant documented in this encounter Care Teams Pesticide Control Inspector Relationship Specialty Start Date End Date Juan Laguerre MD [address] [facility] [address], [place] [address] PCP - General Family Medicine 01/02/18 Aubrey Crabtree III, MD [address] [facility] [address] [place], [place] [id number] Hematology and Medical Oncology 10/01/18 Jaki Nieves, PhD [address] [facility] [address] [place] [address] Genetic Counseling 11/27/18 documented as of this encounter
--- OUTSIDE RECORDS SUMMARY | 2025-08-09 10:29 | XMS_ITS | Encounter Summary ---
Author Organization [facility] Address [address] [place] [address] Care Team Providers Care Appliance Line Assembler Name Role Phone Juan Laguerre MD Primary Care Provider [phone] Bro AWAN MD, Aubrey Lane Unavailable [phone] Jaki Nieves PhD Unavailable [phone] Source Comments In the event that this is information that is protected by federal Confidentiality of Substance User Disorder Patient Records, 42 CFR Part 2 prohibits the unauthorized disclosure of these records.[facility] Encounter Details Date Type Department Care Team (Late Contact Info) Description 04/08/2023 Orders Only NM Transplant Surgery [address] [facility], 19th [address] [place] [address] Kristel Chisholm RN Social History Tobacco Use [...] Upcoming Encounters Date Type Department Care Team ([facility] Contact Info) Description 07/15/2026 1:00 PM CDT Office Visit NM Transplant Surgery [address] [facility], 19th [address] [place] [address] Apt confirmed-EH documented as of this encounter Visit Diagnoses Diagnosis 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
--- OUTSIDE RECORDS SUMMARY | 2025-08-09 10:29 | XMS_ITS | Encounter Summary ---
Author Organization [facility] Address [address] [place] [address] Care Team Providers Care Tradeshow Worker Name Role Phone Juan Laguerre MD Primary Care Provider [phone] Bro AWAN MD, Aubrey Lane Unavailable [phone] Jaki Nieves PhD Unavailable [phone] Source Comments In the event that this is information that is protected by federal Confidentiality of Substance User Disorder Patient Records, 42 CFR Part 2 prohibits the unauthorized disclosure of these records.[facility] Encounter Details Date Type Department Care Team (Late Contact Info) Description 04/01/2023 Orders Only NM Transplant Surgery [address] [facility], 19th Floor [address] [place] [address] Mee Michele RN Social History Tobacco Use [...] Visit NM Transplant Surgery [address] [facility], 19th [address] [place], [place] [address] Apt confirmed-EH documented as of this encounter Visit Diagnoses Diagnosis Kidney transplant recipient 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
--- OUTSIDE RECORDS SUMMARY | 2025-08-09 10:29 | XMS_ITS | Encounter Summary ---
Author Organization [facility] Address [address] [place] [address] Care Team Providers Care Teaching Associate Name Role Phone Juan Laguerre MD Primary Care Provider [phone] Bro AWAN MD, Aubrey Lane Unavailable [phone] Jaki Nieves PhD Unavailable [phone] Source Comments In the event that this is information that is protected by federal Confidentiality of Substance User Disorder Patient Records, 42 CFR Part 2 prohibits the unauthorized disclosure of these records.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
--- OUTSIDE RECORDS SUMMARY | 2025-08-09 10:29 | XMS_ITS | Encounter Summary ---
Author Organization [facility] Address [address] [place] [address] Care Team Providers Care Audio Recording Engineer Name Role Phone Juan Laguerre MD Primary Care Provider [phone] Bro AWAN MD, Aubrey Lane Unavailable [phone] Jaki Nieves PhD Unavailable [phone] Source Comments In the event that this is information that is protected by federal Confidentiality of Substance User Disorder Patient Records, 42 CFR Part 2 prohibits the unauthorized disclosure of these records.[facility] Encounter Details Date Type Department Care Team (Late Contact Info) Description 05/18/2024 Orders Only NM Transplant Surgery [address] [facility], 19th Floor [address] [place] [address] Delaney Gallegos Social History Tobacco Use Types [...] [facility] [address], [address]th Floor [address] [place] [address] Apt confirmed-EH documented as of this encounter Procedures Procedure Name Priority Date/Time Associated Diagnosis Comments OP URINALYSIS WITH MICROSCOPIC, REFLEX TO CULTURE Routine 05/25/2024 8:18 AM CDT documented in this encounter Results * (ABNORMAL) Urinalysis with Microscopic, Reflex to Culture (05/25/2024 8:18 AM CDT) UA Color - External YELLOW YELLOW EXTERNAL LAB UA Appearance - External CLEAR CLEAR EXTERNAL LAB Specific [place], Urine - External 1.025 1.001 - 1.035 [...] transplant documented in this encounter Care Teams Audio Recording Engineer Relationship Specialty Start Date End Date Juan Laguerre MD [address] [place] [address] [place] [address] PCP - General Family Medicine 01/02/18 Aubrey Crabtree III, MD [address] [place] [address] [place] [address] Hematology and Medical Oncology 10/01/18 Jaki Nieves, PhD [address] [facility] [address] [place] [address] Genetic Counseling 11/27/18 documented as of this encounter
--- OUTSIDE RECORDS SUMMARY | 2025-08-09 10:29 | XMS_ITS | Encounter Summary ---
Author Organization [facility] Address [address] [place] [address] Care Team Providers Care Dairy Helper Name Role Phone Juan Laguerre MD Primary Care Provider [phone] Bro AWAN MD, Aubrey Lane Unavailable [phone] Jaki Nieves PhD Unavailable [phone] Source Comments In the event that this is information that is protected by federal Confidentiality of Substance User Disorder Patient Records, 42 CFR Part 2 prohibits the unauthorized disclosure of these records.[facility] Encounter Details Date Type Department Care Team (Late st Contact Info) Description 01/06/2024 Orders Only NM Transplant Surgery [address] [facility], 19th Floor [address] [place], [place] [address] Cathleen Gallegos MD [address] [facility] [address] [address] Social History Tobacco Use Types Packs/Day Years [...] [facility], 19th Floor [address] [place] [address] Apt confirmed-EH documented as of this encounter [...] 3,638 850 - 3,900 cells/uL EXTERNAL LAB [place] Absolute - External 1,046(H) 200 - 950 [...] Verified by Elzbieta Sam on 02/10/2024. us Neo Keyes MD HEMATOLOGY ORDERABLES Final Result EXTERNAL [...] monitoring documented in this encounter Care Teams Dairy Helper Relationship Specialty Start Date End Date Juan Laguerre MD [address] [facility] [address] [place] [id number] PCP - General Family Medicine 01/02/18 Aubrey Crabtree III, MD [address] [facility] [address] [place] [address] Hematology and Medical Oncology 10/01/18 Jaki Nieves, PhD [address] [facility] [address] [place] [address] Genetic Counseling 11/27/18 documented as of this encounter
--- OUTSIDE RECORDS SUMMARY | 2025-08-09 10:29 | XMS_ITS | Encounter Summary ---
Author Organization [facility] Address [address] [place] [address] Care Team Providers Care Solutions Specialist Name Role Phone Juan Laguerre MD Primary Care Provider [phone] Bro AWAN MD, Aubrey Lane Unavailable [phone] Jaki Nieves PhD Unavailable [phone] Source Comments In the event that this is information that is protected by federal Confidentiality of Substance User Disorder Patient Records, 42 CFR Part 2 prohibits the unauthorized disclosure of these records.[facility] Encounter Details Date Type Department Care Team (Late Contact Info) Description 04/08/2023 Orders Only NM Transplant Surgery [address] [facility], 19th Floor [address] [place] [address] Mee Michele RN Social History Tobacco Use [...] Office Visit NM Transplant Surgery [address] 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 [address] [place] [address] Genetic Counseling 11/27/18 documented as of this encounter
--- OUTSIDE RECORDS SUMMARY | 2025-08-09 10:29 | XMS_ITS | Encounter Summary ---
Author Organization [facility] Address [address] [place] [address] Care Team Providers Care Retail Link Analyst Name Role Phone Juan Laguerre MD Primary Care Provider [phone] Bro AWAN MD, Aubrey Lane Unavailable [phone] Jaki Nieves PhD Unavailable [phone] Source Comments In the event that this is information that is protected by federal Confidentiality of Substance User Disorder Patient Records, 42 CFR Part 2 prohibits the unauthorized disclosure of these records.[facility] Encounter Details Date Type Department Care Team (Late Contact Info) Description 05/13/2023 Orders Only NM Transplant Surgery [address] [facility], 19th Floor [address] [place] [address] Mee Michele RN Social History Tobacco Use [...] Date Type Department Care Team ([facility] Contact Info) Description 07/15/2026 1:00 PM CDT Office Visit [place] Transplant Surgery [address], [address] [place] [address] Apt confirmed-EH documented as of this encounter [...] Everolimus Level (05/14/2023 3:24 PM CDT) Pathologist [facility] Everolimus Level - External 6.4 EXTERNAL LAB [...] Final Resul t Performing Organization Address [facility] Co de Phone Number [...] Lymph Absolute - External 1.85 EXTERNAL LAB [place] Absolute - External 0.44 EXTERNAL LAB - External 0.33 EXTERNAL LAB Basophil Absolute - External 0.22 EXTERNAL LAB 05/14/2023 3:24 PM CDT Narrative EXTERNAL LAB - 05/27/2023 1:04 PM CDT Verified by Koki Burks on 05/27/2023. Cathleen Gallegos MD HEMATOLOGY ORDERABLES Final Resu lt Performing Organization Address City/[facility]/ZIP Co de Phone Number EXTERNAL LAB * (ABNORMAL) Urinalysis w/Microscopic, reflex culture (05/14/2023 3:24 PM CDT) UA Color - External Yellow Yellow EXTERNAL LAB UA Appearance - External Clear Clear EXTERNAL LAB UA pH - External 5.5 5.0 - 8.0 EXTERNAL LAB Specific [place], Urine - External 1.022 1.003 - 1.035 [...] URINE ORDERABLES Final Result Performing Organization Address City/[facility]/ZIP Co de Phone Number EXTERNAL LAB [...] documented in this encounter Care Teams Retail Link Analyst Relationship Specialty Start Date End Date Juan Laguerre MD [address] [place] [address] PCP - General Family Medicine 01/02/18 Aubrey Crabtree III, MD [address] [place] [address] [address] [address] Hematology and Medical Oncology 10/01/18 Jaki Nieves, PhD [address] [facility] [address] [place] [address] Genetic Counseling 11/27/18 documented as of this encounter
--- OUTSIDE RECORDS SUMMARY | 2025-08-09 10:29 | XMS_ITS | Encounter Summary ---
Author Organization [facility] Address [address] [place] [address] Care Team Providers Care Pharmaceutical Detailer Name Role Phone Juan Laguerre MD Primary Care Provider [phone] Bro AWAN MD, Aubrey Lane Unavailable [phone] Jaki Nieves PhD Unavailable [phone] Source Comments In the event that this is information that is protected by federal Confidentiality of Substance User Disorder Patient Records, 42 CFR Part 2 prohibits the unauthorized disclosure of these records.[facility] Encounter Details Date Type Department Care Team (Late st Contact Info) Description 02/18/2023 Orders Only NM Transplant Surgery [address] [facility], 19th Floor [address] [place], [place] [address] Cathleen Gallegos MD [address] [facility] 19[place] [address] Social History Tobacco Use Types Packs/Day Years [...] Office Visit NM Transplant Surgery [address] [facility], 19th Floor [address] [place] [address] Apt confirmed-EH Pending Results Name Type Priority [...] 6.0 5.0 - 8.0 EXTERNAL LAB Specific [place], Urine - External 1.013 1.003 - 1.035 [...] URINE ORDERABLES Final Result Performing Organization Address [facility] de Phone Number EXTERNAL LAB * Lipid [...] Resul t Performing Organization Address [facility]/ZIP Co de Phone Number EXTERNAL LAB * [...] 01/02/2008 documented in this encounter Care Teams Pharmaceutical Detailer Relationship Specialty Start Date End Date Juan Laguerre MD [address] [facility] [address] [place] [address] PCP - General Family Medicine 01/02/18 Aubrey Crabtree III, MD [address] [facility] [address] [place] [address] Hematology and Medical Oncology 10/01/18 Jaki Nieves, PhD [address] [facility] [address] [place] [address] Genetic Counseling 11/27/18 documented as of this encounter
--- OUTSIDE RECORDS SUMMARY | 2025-08-09 10:29 | XMS_ITS | Encounter Summary ---
Author Organization [facility] Address [address] [place] [address] Care Team Providers Care Commercial Instructor Supervisor Name Role Phone Juan Laguerre MD Primary Care Provider [phone] Bro AWAN MD, Aubrey Lane Unavailable [phone] Jaki Nieves PhD Unavailable [phone] Source Comments In the event that this is information that is protected by federal Confidentiality of Substance User Disorder Patient Records, 42 CFR Part 2 prohibits the unauthorized disclosure of these records.[facility] Encounter Details Date Type Department Care Team (Late Contact Info) Description 06/03/2023 Orders Only NM Transplant Surgery [address] [facility], 19th Floor [address] [place] [address] Mee Michele RN Social History Tobacco Use [...] Upcoming Encounters Date Type Department Care Team ([facility] Contact Info) Description 07/15/2026 1:00 PM CDT Office Visit NM Transplant Surgery [address] [facility], [address]th [address] [place], [place] [address] Apt confirmed-EH documented as of this encounter Visit Diagnoses Diagnosis Kidney transplant recipient 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
--- OUTSIDE RECORDS SUMMARY | 2025-08-09 10:29 | XMS_ITS | Encounter Summary ---
Author Organization [facility] Address [address] [place] [address] Care Team Providers Care Gluing Machine Operator Electronic Name Role Phone Juan Laguerre MD Primary Care Provider [phone] Bro AWAN MD, Aubrey Lane Unavailable [phone] Jaki Nieves PhD Unavailable [phone] Source Comments In the event that this is information that is protected by federal Confidentiality of Substance User Disorder Patient Records, 42 CFR Part 2 prohibits the unauthorized disclosure of these records.[facility] Encounter Details Date Type Department Care Team (Late Contact Info) Description 04/20/2024 Orders Only NM Transplant Surgery [address] [facility], 19th Floor [address] [place] [address] Delaney Gallegos Social History Tobacco Use Types [...] Surgery [address] [facility], [address]th Floor [address] [place], [place] [address] Apt confirmed-EH documented as of this encounter Visit Diagnoses Diagnosis Kidney replaced by transplant documented in this encounter Care Teams Gluing Machine Operator Electronic Relationship Specialty Start Date End Date Juan Laguerre MD [address] [facility] [address] [place], [place] [phone] PCP - General Family Medicine 01/02/18 Aubrey Crabtree III, MD [address] [facility] [address] [place], [place] [phone] Hematology and Medical Oncology 10/01/18 Jaki Nieves, PhD [address] [facility] [address] [place], [place] [address] Genetic Counseling 11/27/18 documented as of this encounter
--- OUTSIDE RECORDS SUMMARY | 2025-08-09 10:29 | XMS_ITS | Encounter Summary ---
Author Organization [facility] Address [address] [place] [address] Care Team Providers Care Configuration Management Administrator Name Role Phone Juan Laguerre MD Primary Care Provider [phone] Bro AWAN MD, Aubrey Lane Unavailable [phone] Jaki Nieves PhD Unavailable [phone] Source Comments In the event that this is information that is protected by federal Confidentiality of Substance User Disorder Patient Records, 42 CFR Part 2 prohibits the unauthorized disclosure of these records.[facility] Encounter Details Date Type Department Care Team (Late Contact Info) Description 05/06/2023 Orders Only NM Transplant Surgery [address] [facility], 19th Floor [address] [place] [address] Kristel Chisholm RN Social History Tobacco Use [...] Visit [place] Transplant Surgery [address] [facility], 19th Floor [address] [place] [address] Apt confirmed-EH documented as of this encounter Visit Diagnoses Diagnosis 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
--- OUTSIDE RECORDS SUMMARY | 2025-08-09 10:29 | XMS_ITS | Encounter Summary ---
Author Organization [facility] Address [address] [place] [address] Care Team Providers Care Certified Ski Patroller Name Role Phone Juan Laguerre MD Primary Care Provider [phone] Bro AWAN MD, Aubrey Lane Unavailable [phone] Jaki Nieves PhD Unavailable [phone] Source Comments In the event that this is information that is protected by federal Confidentiality of Substance User Disorder Patient Records, 42 CFR Part 2 prohibits the unauthorized disclosure of these records.[facility] Encounter Details Date Type Department Care Team (Late st Contact Info) Description 06/22/2024 Orders Only NM Transplant Surgery [address] [facility], 19th [address] [place], [place] [address] Cathleen Gallegos MD [address] [facility] [address] [address] Social History Tobacco Use Types Packs/Day Years [...] [facility], [address] [place] [address] Apt confirmed-EH documented as of this encounter [...] monitoring documented in this encounter Care Teams Certified Ski Patroller Relationship Specialty Start Date End Date Juan Laguerre MD [address] [address] PCP - General Family Medicine 01/02/18 Aubrey Crabtree III, MD [address] [address] Hematology and Medical Oncology 10/01/18 Jaki Nieves, PhD [address] [facility] [address] [place] [address] Genetic Counseling 11/27/18 documented as of this encounter
--- OUTSIDE RECORDS SUMMARY | 2025-08-09 10:30 | XMS_ITS | Encounter Summary ---
Author Organization [facility] [place] Address [address] [place] [address] Care Team Providers Care Car Coupler Name Role Phone Juan Laguerre MD Primary Care Provider [phone] Bro AWAN MD, Aubrey Lane Unavailable [phone] Jaki Nieves PhD Unavailable [phone] Source Comments In the event that this is information that is protected by federal Confidentiality of Substance User Disorder Patient Records, 42 CFR Part 2 prohibits the unauthorized disclosure of these records.[facility] Encounter Details Date Type Department Care Team (Late st Contact Info) Description 10/19/2019 Orders Only NM Transplant Surgery [address] [facility], 19th [address] [place], [place] [address] Cathleen Gallegos MD [address] [facility] [address] [address] Social History Tobacco Use Types Packs/Day Years [...] [facility], 19th Floor [address] [place] [address] Apt confirmed-EH documented as of this encounter Visit Diagnoses Diagnosis Kidney transplant 01/02/2008 documented in this encounter Additional Health Concerns Infection Onset Date Last Indicated Resolved Time COVID-19 Comment:Tested + on 09/0109/01/2020 09/05/2020 09/25/2020 12: 31 AM ACUTE CARE OCCUPATIONAL THERAPIST documented as of this encounter Care Teams Car Coupler Relationship Specialty Start Date End Date Juan Laguerre MD 241 [facility] [address] [place] [address] PCP - General Family Medicine 01/02/18 Aubrey Crabtree III, MD [address] [facility] [address] [place] [address] Hematology and Medical Oncology 10/01/18 Jaki Nieves, PhD [address] [facility] [address] [place] [address] Genetic Counseling 11/27/18 documented as of this encounter
--- OUTSIDE RECORDS SUMMARY | 2025-08-09 10:30 | XMS_ITS | Encounter Summary ---
Author Organization [facility] Address [address] [place] [address] Care Team Providers Care Muck Boss Name Role Phone Juan Laguerre MD Primary Care Provider [phone] Bro AWAN MD, Aubrey Lane Unavailable [phone] Jaki Nieves PhD Unavailable [phone] Source Comments In the event that this is information that is protected by federal Confidentiality of Substance User Disorder Patient Records, 42 CFR Part 2 prohibits the unauthorized disclosure of these records.[facility] Encounter Details Date Type Department Care Team (Late Contact Info) Description 10/26/2019 Orders Only NM Transplant Surgery [address] [facility], 19th Floor [address] [place] [address] Renetta Henao Social History Tobacco Use Types [...] NM Transplant Surgery [address] [facility], 19th Floor [address] [place] [address] Apt confirmed-EH documented as of this encounter [...] 09/0109/01/2020 09/05/2020 09/25/2020 12: 31 AM PERSONAL BANKING REPRESENTATIVE documented as of this encounter Care Teams Muck Boss Relationship Specialty Start Date End Date Juan Laguerre MD [address] [phone] PCP - General Family Medicine 01/02/18 Aubrey Crabtree III, MD [address] [address] Hematology and Medical Oncology 10/01/18 Jaki Nieves, PhD [address] [facility] [address] [place] [address] Genetic Counseling 11/27/18 documented as of this encounter
--- OUTSIDE RECORDS SUMMARY | 2025-08-09 10:30 | XMS_ITS | Encounter Summary ---
Author Organization [facility] Address [address] [place] [address] Care Team Providers Care Newspaper Peddler Name Role Phone Juan Laguerre MD Primary Care Provider [phone] Bro AWAN MD, Aubrey Lane Unavailable [phone] Jaki Nieves PhD Unavailable [phone] Source Comments In the event that this is information that is protected by federal Confidentiality of Substance User Disorder Patient Records, 42 CFR Part 2 prohibits the unauthorized disclosure of these records.[facility] Encounter Details Date Type Department Care Team (Late Contact Info) Description 02/22/2025 Orders Only NM Transplant Surgery [address] [facility], 19th Floor [address] [place] [address] Joshua Bee RN Social History Tobacco Use [...] NM Transplant Surgery [address] [facility], 19th Floor [address] [place], [place] [address] Apt confirmed-EH documented as of this encounter Visit Diagnoses Diagnosis 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 transplant Adenocarcinoma of pancreas (CMS-HCC) Malignant neoplasm of pancreas, part unspecified documented in this encounter Care Teams Newspaper Peddler Relationship Specialty Start Date End Date Juan Laguerre MD 241 [facility] [address] [place] [id number] PCP - General Family Medicine 01/02/18 Aubrey Crabtree III, MD [address] [facility] [address] [place] [address] Hematology and Medical Oncology 10/01/18 Jaki Nieves, PhD [address] [facility] [address] [place] [address] Genetic Counseling 11/27/18 documented as of this encounter
--- OUTSIDE RECORDS SUMMARY | 2025-08-09 10:30 | XMS_ITS | Encounter Summary ---
Author Organization [facility] Address [address] [place] [address] Care Team Providers Care Life Sciences Manager Name Role Phone Juan Laguerre MD Primary Care Provider [phone] Bro AWAN MD, Aubrey Lane Unavailable [phone] Jaki Nieves PhD Unavailable [phone] Source Comments In the event that this is information that is protected by federal Confidentiality of Substance User Disorder Patient Records, 42 CFR Part 2 prohibits the unauthorized disclosure of these records.[facility] Encounter Details Date Type Department Care Team (Late st Contact Info) Description 08/17/2024 Orders Only NM Transplant Surgery [address] [facility], 19th Floor [address] [place], [place] [address] Cathleen Gallegos MD [address] [facility] 19[place] [address] Social History Tobacco Use Types Packs/Day Years [...] [facility], 19th Floor [address] [place] [address] Apt confirmed-EH documented as of this encounter [...] monitoring documented in this encounter Care Teams Life Sciences Manager Relationship Specialty Start Date End Date Juan Laguerre MD [address] [address] PCP - General Family Medicine 01/02/18 Aubrey Crabtree III, MD [address] [address] Hematology and Medical Oncology 10/01/18 Jaki Nieves, PhD [address] [facility] [address] [place] [address] Genetic Counseling 11/27/18 documented as of this encounter
--- OUTSIDE RECORDS SUMMARY | 2025-08-09 10:30 | XMS_ITS | Encounter Summary ---
Author Organization [facility] Address [address] [place] [address] Care Team Providers Care Crop Or Grain Farmer Name Role Phone Juan Laguerre MD Primary Care Provider [phone] Bro AWAN MD, Aubrey Lane Unavailable [phone] Jaki Nieves PhD Unavailable [phone] Source Comments In the event that this is information that is protected by federal Confidentiality of Substance User Disorder Patient Records, 42 CFR Part 2 prohibits the unauthorized disclosure of these records.[facility] Encounter Details Date Type Department Care Team (Late st Contact Info) Description 03/22/2025 Orders Only NM Transplant Surgery [address] [facility], [address]th Floor [address] [place], [place] [address] Cathleen Gallegos MD [address] [facility] [address] [address] Social History Tobacco Use Types Packs/Day Years [...] [facility] Floor [address] [place] [address] Apt confirmed-EH documented as of this encounter [...] Everolimus Level (04/01/2025 8:11 AM CDT) Pathologist [facility] Everolimus Level - External 6.6 EXTERNAL LAB 04/01/2025 8:11 AM CDT Narrative EXTERNAL LAB - 04/12/2025 11:04 AM CDT Verified by Elzbitea Sam on 04/12/2025. us Noe Keyes MD CHEMISTRY ORDERABLES Final R esult EXTERNAL LAB * Urinalysis with Microscopic, Reflex to Culture (04/01/2025 8:11 AM CDT) UA Color - External YELLOW YELLOW EXTERNAL LAB UA Appearance - External CLEAR CLEAR EXTERNAL LAB Specific [place], Urine - External 1.022 1.001 - 1.035 [...] 4,087(H) 850 - 3,900 cells/uL EXTERNAL LAB [place] Absolute - External 1,562(H) 200 - 950 [...] HEMATOLOGY ORDERABLES Final Result Performing Organization Address City/[facility]/ZIP Co de Phone Number EXTERNAL LAB [...] ORDERABLES Final Resul t Performing Organization Address [facility] Co de Phone Number EXTERNAL [...] monitoring documented in this encounter Care Teams Crop Or Grain Farmer Relationship Specialty Start Date End Date Juan Laguerre MD [address] [address] PCP - General Family Medicine 01/02/18 Aubrey Crabtree III, MD [address] [address] Hematology and Medical Oncology 10/01/18 Jaki Nieves, PhD [address] [facility] [address] [place] [address] Genetic Counseling 11/27/18 documented as of this encounter
--- OUTSIDE RECORDS SUMMARY | 2025-08-09 10:30 | XMS_ITS | Encounter Summary ---
Author Organization [facility] Address [address] [place] [address] Care Team Providers Care Cattle Sprayer Name Role Phone Juan Laguerre MD Primary Care Provider [phone] Bro AWAN MD, Aubrey Lane Unavailable [phone] Jaki Nieves PhD Unavailable [phone] Source Comments In the event that this is information that is protected by federal Confidentiality of Substance User Disorder Patient Records, 42 CFR Part 2 prohibits the unauthorized disclosure of these records.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 transplant Adenocarcinoma of pancreas (CMS-HCC) Malignant neoplasm of pancreas, part unspecified documented in this encounter Care Teams Cattle Sprayer Relationship Specialty Start Date End Date Juan Laguerre MD 241 [facility] [address] [place] [id number] PCP - General Family Medicine 01/02/18 Aubrey Crabtree III, MD [address] [facility] [address] [place] [address] Hematology and Medical Oncology 10/01/18 Jaki Nieves, PhD [address] [facility] [address] [place] [address] Genetic Counseling 11/27/18 documented as of this encounter
--- OUTSIDE RECORDS SUMMARY | 2025-08-09 10:30 | XMS_ITS | Encounter Summary ---
Author Organization [facility] Address [address] [place] [address] Care Team Providers Care Fish Processing Supervisor Name Role Phone Juan Laguerre MD Primary Care Provider [phone] Bro AWAN MD, Aubrey Lane Unavailable [phone] Jaki Nieves PhD Unavailable [phone] Source Comments In the event that this is information that is protected by federal Confidentiality of Substance User Disorder Patient Records, 42 CFR Part 2 prohibits the unauthorized disclosure of these records.[facility] Encounter Details Date Type Department Care Team (Late Contact Info) Description 08/03/2019 Orders Only NM Transplant Surgery [address] [facility], 19th Floor [address] [place] [address] Renetta Henao Social History Tobacco Use Types [...] N [facility], [address]th Floor [address] [place] [address] Apt confirmed-EH documented as of this encounter Procedures Procedure Name Priority Date/Time Associated Diagnosis Comments CARBOHYDRATE ANTIGEN 19-9 (CA19-9) Routine 08/10/2019 9:39 AM CDT CBC AND DIFFERENTIAL Routine 08/10/2019 9:39 AM CDT COMPREHENSIVE METABOLIC PANEL Routine 08/10/2019 9:39 AM CDT documented in this encounter Results * Carbohydrate Antigen 19-9 (08/10/2019 9:39 AM CDT) Pathologist [facility] CA 19 9 - External 12 EXTERNAL LAB 08/10/2019 9:39 AM CDT Narrative EXTERNAL LAB - 10/15/2019 2:04 PM GEOLOGICAL SCIENCE TEACHER Verified by Monie Siddiqui on 10/15/2019. us Cathleen Gallegos MD IMMUNOLOGY ORDERABLES Final Resu lt EXTERNAL LAB * (ABNORMAL) CBC with Differential (08/10/2019 9:39 AM CDT) Pathologist [facility] White Blood Cells - External 10.7(H) 4.0 [...] Lymph Absolute - External 2,990 EXTERNAL LAB [place] Absolute - External 214 cells/uL EXTERNAL LAB [...] Narrative EXTERNAL LAB - 10/15/2019 2:04 PM GEOLOGICAL SCIENCE TEACHER Verified by Monie Siddiqui on 10/15/2019. us [...] Narrative EXTERNAL LAB - 10/15/2019 2:04 PM GEOLOGICAL SCIENCE TEACHER Verified by Monie Siddiqui on 10/15/2019. us [...] on 09/0109/01/2020 09/05/2020 09/25/2020 12: 31 AM GEOLOGICAL SCIENCE TEACHER documented as of this encounter Care Teams Fish Processing Supervisor Relationship Specialty Start Date End Date Juan Laguerre MD [address] [id number] PCP - General Family Medicine 01/02/18 Aubrey Crabtree III, MD [address] [address] Hematology and Medical Oncology 10/01/18 Jaki Nieves, PhD [address] [facility] [address] [place] [address] Genetic Counseling 11/27/18 documented as of this encounter
--- OUTSIDE RECORDS SUMMARY | 2025-08-09 10:30 | XMS_ITS | Encounter Summary ---
Author Organization [facility] Address [address] [place] [address] Care Team Providers Care Human Resources Administrator Name Role Phone Juan Laguerre MD Primary Care Provider [phone] Bro AWAN MD, Aubrey Lane Unavailable [phone] Jaki Nieves PhD Unavailable [phone] Source Comments In the event that this is information that is protected by federal Confidentiality of Substance User Disorder Patient Records, 42 CFR Part 2 prohibits the unauthorized disclosure of these records.[facility] Encounter Details Date Type Department Care Team (Late Contact Info) Description 02/08/2025 Orders Only NM Transplant Surgery [address] [facility], 19th Floor [address] [place] [address] Joshua Bee RN Social History Tobacco Use [...] [facility], 19th Floor [address] [place], [place] [address] Apt confirmed-EH documented as of this encounter Visit Diagnoses Diagnosis 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 transplant Adenocarcinoma of pancreas (CMS-HCC) Malignant neoplasm of pancreas, part unspecified documented in this encounter Care Teams Human Resources Administrator Relationship Specialty Start Date End Date Juan Laguerre MD 241 [facility] [address] [place] [phone] PCP - General Family Medicine 01/02/18 Aubrey Crabtree III, MD 241 [facility] [address] [place] [address] Hematology and Medical Oncology 10/01/18 Jaki Nieves, PhD [address] [facility] [address] [place] [address] Genetic Counseling 11/27/18 documented as of this encounter
--- OUTSIDE RECORDS SUMMARY | 2025-08-09 10:30 | XMS_ITS | Encounter Summary ---
Author Organization [facility] Address [address] [place] [address] Care Team Providers Care Office Support Clerk Name Role Phone Juan Laguerre MD Primary Care Provider [phone] Bro AAWN MD, Aubrey Lane Unavailable [phone] Jaki Nieves PhD Unavailable [phone] Source Comments In the event that this is information that is protected by federal Confidentiality of Substance User Disorder Patient Records, 42 CFR Part 2 prohibits the unauthorized disclosure of these records.[facility] Reason for Visit * Reason Onset Date Comments Lab Results 04/07/2025 K+, A1C Encounter Details Date Type Department Care Team (Late st Contact Info) Description 04/07/2025 Results Follow-Up NM Transplant Surgery [address] [facility], 19th Floor [address] [place] [address] Emelina Dias, heavy equipment operator Results (K+, A1C) Social History Tobacco Use [...] [facility] [address] Floor [address] [place] [address] Apt confirmed-EH documented as of this encounter Visit Diagnoses Not on filedocumented in this encounter Care Teams Office Support Clerk Relationship Specialty Start Date End Date Juan Laguerre MD 241 [facility] [address] [place] [address] PCP - General Family Medicine 01/02/18 Aubrey Crabtree III, MD 241 [facility] [address] [place], [place] [phone] Hematology and Medical Oncology 10/01/18 Jaki Nieves, PhD [address] [facility] [address] [place], [place] [id number] Genetic Counseling 11/27/18 documented as of this encounter
--- OUTSIDE RECORDS SUMMARY | 2025-08-09 10:30 | XMS_ITS | Clinical Summary ---
Author Organization [facility] Address [address] [facility] [address] [place] [address] Phone Care Team Providers Care Photo Checker And Assembler Name Role Phone Unavailable Primary Care Provider Unavailabl e Social History Tobacco Use Types Packs/Day Years Used Date Smoking Tobacco: Never Assessed Sex and Gender Information Value Date Recorded Sex Assigned at Not on file Legal Sex Male 11:38 AM EST Gender Identity Not on file Sexual Orientation Not on file Plan of Treatment Health Maintenance Due Date Last Done Comments Colorectal Cancer Screening: Annual FOBT 2009 Colorectal Cancer Screening: Colonoscopy 2009 Colorectal Cancer Screening: Sigmoidoscopy 2009 Pneumococcal Vaccine: 50+ Ye ars (1 of 1 - PCV) 2010 Influenza Vaccine (#1) 2025 Hepatitis B Vaccine Aged Out No longe r eligible based on patient's age to complete this topic Insurance [facility] [place]
--- OUTSIDE RECORDS SUMMARY | 2025-08-09 10:30 | XMS_ITS | Encounter Summary ---
Author Organization [facility] Address [address] [place] [address] Care Team Providers Care District Court Justice Name Role Phone Juan Laguerre MD Primary Care Provider [phone] Bro AWAN MD, Aubrey Lane Unavailable [phone] Jaki Nieves PhD Unavailable [phone] Source Comments In the event that this is information that is protected by federal Confidentiality of Substance User Disorder Patient Records, 42 CFR Part 2 prohibits the unauthorized disclosure of these records.[facility] Encounter Details Date Type Department Care Team (Late st Contact Info) Description 08/21/2024 Scanned Document [place] [address] [place] [address] [place] [address] [place] [phone] Social History Tobacco Use Types Packs/Day Years [...] Office Visit [place] Transplant Surgery [address] [facility], 19th [address] [place], [place] [address] Apt confirmed-EH documented as of this encounter Visit Diagnoses Not on filedocumented in this encounter Care Teams District Court Justice Relationship Specialty Start Date End Date Juan Laguerre MD 241 [facility] [address] [place] [address] PCP - General Family Medicine 01/02/18 Aubrey Crabtree III, MD 241 [facility] [address] [place] [address] Hematology and Medical Oncology 10/01/18 Jaki Nieves, PhD [address] [facility] [address] [place], [place] [address] Genetic Counseling 11/27/18 documented as of this encounter
--- OUTSIDE RECORDS SUMMARY | 2025-08-09 10:30 | XMS_ITS | Encounter Summary ---
Author Organization [facility] Address [address] [place] [address] Care Team Providers Care Hair Rooting Machine Operator Name Role Phone Juan Laguerre MD Primary Care Provider [phone] Bro AWAN MD, Aubrey Lane Unavailable [phone] Jaki Nieves PhD Unavailable [phone] Source Comments In the event that this is information that is protected by federal Confidentiality of Substance User Disorder Patient Records, 42 CFR Part 2 prohibits the unauthorized disclosure of these records.[facility] Encounter Details Date Type Department Care Team (Late Contact Info) Description 02/29/2020 Orders Only NM Transplant Surgery [address] [facility], [address] [place] [address] Vivi Ponce Social History Tobacco Use Types [...] [address], [address] [place] [address] Apt confirmed-EH documented as of this encounter [...] ORDERABLES Final R esult Performing Organization Address [facility] Co de Phone Number EXTERNAL LAB * BK Virus DNA Quant PCR, Blood (03/09/2020 7:49 AM CDT) Pathologist [facility] BK Virus DNA, Qn PCR - External DETECTED EXTERNAL LAB 03/09/2020 7:49 AM CDT Narrative EXTERNAL LAB - 03/14/2020 8:24 AM CDT Verified by Koki Burks on 03/14/2020. Physician Non-Staff IMMUNOLOGY ORDERABLES Final Result Performing Organization Address [facility] Co de Phone Number EXTERNAL LAB * Vitamin D 25-Hydroxy (03/09/2020 7:49 AM CDT) Pathologist [facility] Vitamin D, 25-Hydroxy, Total - External 23 ng/mL EXTERNAL LAB 03/09/2020 7:49 AM CDT Narrative EXTERNAL LAB - 03/09/2020 12:37 PM CDT Verified by Monie Siddiqui on 03/09/2020. Edwin Del Toro MD CHEMISTRY ORDERABLES Final Result Performing Organization Address [facility] de Phone Number EXTERNAL LAB * (ABNORMAL) Urinalysis with microscopic (03/09/2020 7:49 AM CDT) Pathologist [facility] Specific [place], Urine - External 1.018 1.003 - 1.035 [...] ORDERABLES Final Res ult Performing Organization Address [facility] Co de Phone Number EXTERNAL LAB * (ABNORMAL) PTH,Intact (03/09/2020 7:49 AM CDT) PTH, Intact - External 101(H) 14 - 72 pg/mL EXTERNAL LAB 03/09/2020 7:49 AM CDT Narrative EXTERNAL LAB - 03/09/2020 12:37 PM CDT Verified by Monie Siddiqui on 03/09/2020. Edwin Del Toro MD CHEMISTRY ORDERABLES Final Result Performing Organization Address [facility] de Phone Number EXTERNAL LAB [...] CHEMISTRY ORDERABLES Final Result Performing Organization Address City/[facility] Co de Phone Number EXTERNAL LAB * (ABNORMAL) CBC with Differential (03/09/2020 7:49 AM CDT) Neutrophils Abs (cells/uL) - External 5.01 1.40 - 7.30 cells/uL EXTERNAL LAB Lymph Absolute - External 2.10 10(3)/mcL EXTERNAL LAB [place] Absolute - External 0.48 0.10 - 0.80 [...] IMMUNOLOGY ORDERABLES Final Result Performing Organization Address City/[facility]/ZIP Co de Phone Number EXTERNAL LAB * [...] Basophil Absolute - External 107 EXTERNAL LAB [place] Absolute - External 1,388 EXTERNAL LAB Neutrophils - External 48 EXTERNAL LAB Lymphocytes - External 35 EXTERNAL LAB Monocytes - External 13 EXTERNAL LAB Basophils - External 1 EXTERNAL LAB 03/01/2020 Narrative EXTERNAL LAB - 03/03/2020 3:31 PM CDT Verified by Monie Siddiqui on 03/03/2020. Rell Painting MD HEMATOLOGY ORDERABLES Final Result Performing Organization Address [facility] de Phone Number EXTERNAL LAB * Comp [...] 09/0109/01/2020 09/05/2020 09/25/2020 12: 31 AM SUPERVISOR VACUUM METALIZING documented as of this encounter Care Teams Hair Rooting Machine Operator Relationship Specialty Start Date End Date Juan Laguerre MD [address] [facility] [address] [place] [address] PCP - General Family Medicine 01/02/18 Aubrey Crabtree III, MD [address] [facility] [address] [place] [address] Hematology and Medical Oncology 10/01/18 Jaki Nieves, PhD [address] [facility] [address] [place] [address] Genetic Counseling 11/27/18 documented as of this encounter
--- OUTSIDE RECORDS SUMMARY | 2025-08-09 10:30 | XMS_ITS | Encounter Summary ---
Author Organization [facility] Address [address] [place] [address] Care Team Providers Care Spa Therapist Name Role Phone Juan Laguerre MD Primary Care Provider [phone] Bro AWAN MD, Aubrey Lane Unavailable [phone] Jaki Nieves PhD Unavailable [phone] Source Comments In the event that this is information that is protected by federal Confidentiality of Substance User Disorder Patient Records, 42 CFR Part 2 prohibits the unauthorized disclosure of these records.[facility] Encounter Details Date Type Department Care Team (Late Contact Info) Description 08/31/2019 Orders Only NM Transplant Surgery [address] [facility], 19th [address] [place] [address] Renetta Henao Social History Tobacco Use Types [...] [facility], [address]th Floor [address] [place] [address] Apt confirmed-EH documented as of this encounter [...] on 09/0109/01/2020 09/05/2020 09/25/2020 12: 31 AM INCINERATOR OPERATOR documented as of this encounter Care Teams Spa Therapist Relationship Specialty Start Date End Date Juan Laguerre MD [address] [id number] PCP - General Family Medicine 01/02/18 Aubrey Crabtree III, MD [address] [address] Hematology and Medical Oncology 10/01/18 Jaki Nieves, PhD [address] [facility] [address] [place] [address] Genetic Counseling 11/27/18 documented as of this encounter
--- OUTSIDE RECORDS SUMMARY | 2025-08-09 10:30 | XMS_ITS | Encounter Summary ---
Author Organization [facility] Address [address] [place] [address] Care Team Providers Care Veneer Marker Name Role Phone Juan Laguerre MD Primary Care Provider [phone] Bro AWAN MD, Aubrey Lane Unavailable [phone] Jaki Nieves PhD Unavailable [phone] Source Comments In the event that this [...] [facility], [address] [address] [place] [address] Cara Cook RN Social History Tobacco Use [...] [address] [place] [address] Apt confirmed-EH documented as of this encounter Procedures Procedure Name Priority Date/Time Associated Diagnosis Comments BK VIRUS QUANT VIRAL LOAD, URINE Routine 09/17/2019 10:22 AM GLASSWARE MAKER PTH, INTACT Routine 09/17/2019 10:22 AM GLASSWARE MAKER VITAMIN D 25-HYDROXY Routine 09/17/2019 10:22 AM GLASSWARE MAKER PROTEIN/CREAT RATIO, RANDOM URINE Routine 09/17/2019 10:22 AM GLASSWARE MAKER URINALYSIS WITH MICROSCOPIC Routine 09/17/2019 10:22 AM GLASSWARE MAKER HEPATIC FUNCTION PANEL Routine 09/17/2019 10:22 AM GLASSWARE MAKER RENAL FUNCTION PANEL Routine 09/17/2019 10:22 AM GLASSWARE MAKER CBC AND DIFFERENTIAL Routine 09/17/2019 9:33 AM GLASSWARE MAKER HEMOGLOBIN A1C Routine 09/17/2019 9:22 AM GLASSWARE MAKER documented in this encounter Results * PTH,Intact (09/17/2019 10:22 AM GLASSWARE MAKER) PTH, Intact - External 47 EXTERNAL LAB 09/17/2019 10:2 2 AM GLASSWARE MAKER Narrative EXTERNAL LAB - 10/15/2019 2:04 PM GLASSWARE MAKER Verified by Monie Siddiqui on 10/15/2019. us Cathleen Gallegos MD CHEMISTRY ORDERABLES Final Resul t EXTERNAL LAB * Hepatic function panel (09/17/2019 10:22 AM GLASSWARE MAKER) Total Bilirubin - External 0.3 0.3 - [...] 5.79 EXTERNAL LAB 09/17/2019 10:2 2 AM GLASSWARE MAKER Narrative EXTERNAL LAB - 10/15/2019 2:04 PM GLASSWARE MAKER Verified by Monie Siddiqui on 10/15/2019. Cathleen Gallegos MD CHEMISTRY ORDERABLES Final Resul t EXTERNAL LAB * BK Virus Quant Viral Load, Urine (09/17/2019 10:22 AM GLASSWARE MAKER) Pathologist [facility] BK Quantitation Urine - External 6,360 EXTERNAL LAB 09/17/2019 10:2 2 AM GLASSWARE MAKER Narrative EXTERNAL LAB - 10/15/2019 2:04 PM GLASSWARE MAKER Verified by Monie Siddiqui on 10/15/2019. Cathleen Gallegos MD URINE ORDERABLES Final Result Performing Organization Address [facility] Co de Phone Number EXTERNAL LAB * (ABNORMAL) Renal function panel (09/17/2019 10:22 AM GLASSWARE MAKER) Pathologist [facility] Phosphorous - External 3.0 2 - [...] ml/min EXTERNAL LAB 09/17/2019 10:2 2 AM GLASSWARE MAKER Narrative EXTERNAL LAB - 10/15/2019 2:04 PM GLASSWARE MAKER Verified by Monie Siddiqui on 10/15/2019. us Cathleen Gallegos MD CHEMISTRY ORDERABLES Final Resul t Performing Organization Address [facility] Co de Phone Number EXTERNAL LAB * (ABNORMAL) Urinalysis with Microscopic (09/17/2019 10:22 AM GLASSWARE MAKER) UA Color - External Yellow Yellow EXTERNAL LAB UA Appearance - External Clear Clear EXTERNAL LAB UA Glucose - External 3+(H) NEG EXTERNAL LAB UA Bilirubin - External NEG mg/dL EXTERNAL LAB UA Ketones - External NEG mg/d EXTERNAL LAB UA Blood - External NEG EXTERNAL LAB Specific [place], Urine - External 1.015 EXTERNAL LAB UA [...] NONE EXTERNAL LAB 09/17/2019 10:2 2 AM GLASSWARE MAKER Narrative EXTERNAL LAB - 10/15/2019 2:04 PM GLASSWARE MAKER Verified by Monie Siddiqui on 10/15/2019. us Cathleen Gallegos MD URINE ORDERABLES Final Result Performing Organization Address [facility] de Phone Number EXTERNAL LAB * (ABNORMAL) Vitamin D 25-Hydroxy (09/17/2019 10:22 AM GLASSWARE MAKER) Vitamin D, 25-Hydroxy, Total - External 25.5(L) 30.0 - 100.0 EXTERNAL LAB 09/17/2019 10:2 2 AM GLASSWARE MAKER Narrative EXTERNAL LAB - 10/15/2019 2:04 PM GLASSWARE MAKER Verified by Monie Siddiqui on 10/15/2019. us Cathleen Gallegos MD CHEMISTRY ORDERABLES Final Resul t Performing Organization Address [facility] de Phone Number EXTERNAL LAB * (ABNORMAL) Protein /Creatinine Ratio, Urine (09/17/2019 10:22 AM GLASSWARE MAKER) Urine Creatinine, Random - External 66.1 EXTERNAL LAB Protein, Urine - External 55 EXTERNAL LAB Prot/Creat Ratio - External 837(H) 0 - 200 EXTERNAL LAB 09/17/2019 10:2 2 AM GLASSWARE MAKER Narrative EXTERNAL LAB - 10/15/2019 2:04 PM GLASSWARE MAKER Verified by Monie Siddiqui on 10/15/2019. us Cathleen Gallegos MD URINE ORDERABLES Final Result Performing Organization Address [facility] de Phone Number EXTERNAL LAB * (ABNORMAL) CBC with Differential (09/17/2019 9:33 AM GLASSWARE MAKER) White Blood Cells - External 9.5 4.0 [...] Lymph Absolute - External 3,416 EXTERNAL LAB [place] Absolute - External 475 cells/uL EXTERNAL LAB [...] 3 % EXTERNAL LAB 09/17/2019 9:33 AM GLASSWARE MAKER Narrative EXTERNAL LAB - 10/15/2019 2:04 PM GLASSWARE MAKER Verified by Monie Siddiqui on 10/15/2019. Cathleen Gallegos MD HEMATOLOGY ORDERABLES Final Resu lt EXTERNAL LAB * (ABNORMAL) Hemoglobin A1c (09/17/2019 9:22 AM GLASSWARE MAKER) Hemoglobin A1C - External 11.8(H) 4.8 - 5.6 EXTERNAL LAB 09/17/2019 9:22 AM GLASSWARE MAKER Narrative EXTERNAL LAB - 10/15/2019 2:04 PM GLASSWARE MAKER Verified by Monie Siddiqui on 10/15/2019. 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) Liver replaced by transplant Kidney replaced by transplant documented in this encounter Additional Health Concerns Infection Onset Date Last Indicated Resolved Time COVID-19 Comment:Tested + on 09/0109/01/2020 09/05/2020 09/25/2020 12: 31 AM GLASSWARE MAKER documented as of this encounter Care Teams Veneer Marker Relationship Specialty Start Date End Date Juan Laguerre MD [address] [facility] [address] [place] [address] PCP - General Family Medicine 01/02/18 Aubrey Crabtree III, MD [address] [facility] [address] [place] [address] Hematology and Medical Oncology 10/01/18 Jaki Nieves, PhD [address] [facility] [address] [place] [address] Genetic Counseling 11/27/18 documented as of this encounter
--- OUTSIDE RECORDS SUMMARY | 2025-08-09 10:30 | XMS_ITS | Encounter Summary ---
Author Organization [facility] Address [address] [place] [address] Care Team Providers Care Carton Marker Machine Name Role Phone Juan Laguerre MD Primary Care Provider [phone] Bro AWAN MD, Aubrey Lane Unavailable [phone] Jaki Nieves PhD Unavailable [phone] Source Comments In the event that this is information that is protected by federal Confidentiality of Substance User Disorder Patient Records, 42 CFR Part 2 prohibits the unauthorized disclosure of these records.[facility] Encounter Details Date Type Department Care Team (Late st Contact Info) Description 09/21/2019 Orders Only NM Transplant Surgery [address] [facility], 19th Floor [address] [place], [place] [address] Cathleen Gallegos MD [address] [facility] [address] [address] Social History Tobacco Use Types Packs/Day Years [...] Transplant Surgery [address] [facility], 19th Floor [address] [place] [address] Apt confirmed-EH documented as of this encounter Visit Diagnoses Diagnosis Kidney transplant 01/02/2008 documented in this encounter Additional Health Concerns Infection Onset Date Last Indicated Resolved Time COVID-19 Comment:Tested + on 09/0109/01/2020 09/05/2020 09/25/2020 12: 31 AM REGISTERED NURSING PROFESSOR documented as of this encounter Care Teams Carton Marker Machine Relationship Specialty Start Date End Date Juan Laguerre MD [address] [facility] [address] [place] [address] PCP - General Family Medicine 01/02/18 Aubrey Crabtree III, MD [address] [facility] [address] [place] [address] Hematology and Medical Oncology 10/01/18 Jaki Nieves, PhD [address] [facility] [address] [place] [address] Genetic Counseling 11/27/18 documented as of this encounter
--- OUTSIDE RECORDS SUMMARY | 2025-08-09 10:30 | XMS_ITS | Encounter Summary ---
Author Organization [facility] Address [address] [place] [address] Care Team Providers Care Plow Shaker Name Role Phone Juan Laguerre MD Primary Care Provider [phone] Bro AWAN MD, Aubrey Lane Unavailable [phone] Jaki Nieves PhD Unavailable [phone] Source Comments In the event that this is information that is protected by federal Confidentiality of Substance User Disorder Patient Records, 42 CFR Part 2 prohibits the unauthorized disclosure of these records.[facility] Encounter Details Date Type Department Care Team (Late st Contact Info) Description 06/14/2025 Orders Only NM Transplant Surgery [address] [facility], 19th Floor [address] [place], [place] [address] Cathleen Gallegos MD [address] [facility] [address] [address] Social History Tobacco Use Types Packs/Day Years [...] [facility], [address]th Floor [address] [place] [address] Apt confirmed-EH documented as of this encounter [...] monitoring documented in this encounter Care Teams Plow Shaker Relationship Specialty Start Date End Date Juan Laguerre MD [address] [facility] [address] [place] [address] PCP - General Family Medicine 01/02/18 Aubrey Crabtree III, MD [address] [address] Hematology and Medical Oncology 10/01/18 Jaki Nieves, PhD [address] [facility] [address] [place], [place] [address] Genetic Counseling 11/27/18 documented as of this encounter
--- OUTSIDE RECORDS SUMMARY | 2025-08-09 10:30 | XMS_ITS | Encounter Summary ---
Author Organization [facility] Address [address] [place] [address] Care Team Providers Care Oval Or Circular Glass Cutter Name Role Phone Juan Laguerre MD Primary Care Provider [phone] Bro AWAN MD, Aubrey Lane Unavailable [phone] Jaki Nieves PhD Unavailable [phone] Source Comments In the event that this is information that is protected by federal Confidentiality of Substance User Disorder Patient Records, 42 CFR Part 2 prohibits the unauthorized disclosure of these records.[facility] Encounter Details Date Type Department Care Team (Late Contact Info) Description 06/06/2020 Orders Only NM Transplant Surgery [address] [facility], 19th Floor [address] [place] [address] Vivi Ponce Social History Tobacco Use Types [...] [address] [place] [address] Apt confirmed-EH documented as of this encounter [...] on 09/0109/01/2020 09/05/2020 09/25/2020 12: 31 AM CNC OPERATOR PROGRAMMER documented as of this encounter Care Teams Oval Or Circular Glass Cutter Relationship Specialty Start Date End Date Juan Laguerre MD [address] [facility] [address] [place] [address] PCP - General Family Medicine 01/02/18 Aubrey Crabtree III, MD [address] [facility] [address] [place] [address] Hematology and Medical Oncology 10/01/18 Jaki Nieves, PhD [address] [facility] [address] [place] [address] Genetic Counseling 11/27/18 documented as of this encounter
--- OUTSIDE RECORDS SUMMARY | 2025-08-09 10:30 | XMS_ITS | Encounter Summary ---
Author Organization [facility] Address [address] [place] [address] Care Team Providers Care Kettle Chipper Name Role Phone Juan Laguerre MD Primary Care Provider [phone] Bro AWAN MD, Aubrey Lane Unavailable [phone] Jaki Nieves PhD Unavailable [phone] Source Comments In the event that this is information that is protected by federal Confidentiality of Substance User Disorder Patient Records, 42 CFR Part 2 prohibits the unauthorized disclosure of these records.[facility] Encounter Details Date Type Department Care Team (Late Contact Info) Description 11/16/2024 Orders Only NM Transplant Surgery [address] [facility], 19th Floor [address] [place] [address] Joshua Bee RN Social History Tobacco Use [...] Office Visit NM Transplant Surgery [address] [facility], 19th Floor [address] [place], [place] [address] Apt confirmed-EH documented as of this encounter Visit Diagnoses Diagnosis 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 transplant Adenocarcinoma of pancreas (CMS-HCC) Malignant neoplasm of pancreas, part unspecified documented in this encounter Care Teams Kettle Chipper Relationship Specialty Start Date End Date Juan Laguerre MD [address] [facility] [address] [place] [id number] PCP - General Family Medicine 01/02/18 Aubrey Crabtree III, MD [address] [facility] [address] [place] [address] Hematology and Medical Oncology 10/01/18 Jaki Nieves, PhD [address] [facility] [address] [place] [address] Genetic Counseling 11/27/18 documented as of this encounter
--- OUTSIDE RECORDS SUMMARY | 2025-08-09 10:30 | XMS_ITS | Encounter Summary ---
Author Organization [facility] Address [address] [place] [address] Care Team Providers Care Fashion Coordinator Name Role Phone Juan Laguerre MD Primary Care Provider [phone] Bro AWAN MD, Aubrey Lane Unavailable [phone] Jaki Nieves PhD Unavailable [phone] Source Comments In the event that this [...] [address], [address] [place], [place] [address] Cathleen Gallegos MD [address] [facility] [address], [place] [address] Social History Tobacco Use Types Packs/Day Years [...] [address], [address] [place] [address] Apt confirmed-EH documented as of this encounter Procedures Procedure Name Priority Date/Time Associated Diagnosis Comments URINALYSIS WITH MICROSCOPIC Routine 11/19/2019 9:24 AM HEAD CORRECTION OFFICER URINALYSIS WITH MICROSCOPIC Routine 11/19/2019 9:24 AM HEAD CORRECTION OFFICER CBC AND DIFFERENTIAL Routine 11/19/2019 9:24 AM HEAD CORRECTION OFFICER CBC AND DIFFERENTIAL Routine 11/19/2019 9:24 AM HEAD CORRECTION OFFICER RENAL FUNCTION PANEL Routine 11/19/2019 9:24 AM HEAD CORRECTION OFFICER documented in this encounter Results * (ABNORMAL) CBC with Differential (11/19/2019 9:24 AM HEAD CORRECTION OFFICER) White Blood Cells - External 15.9(H) 4.0 [...] Absolute - External 3,186 cells/uL EXTERNAL LAB [place] Absolute - External 1,593 cells/uL EXTERNAL LAB [...] 1.94 % EXTERNAL LAB 11/19/2019 9:24 AM HEAD CORRECTION OFFICER Narrative EXTERNAL LAB - 12/05/2019 10:44 AM HEAD CORRECTION OFFICER Verified by Monie Siddiqui on 12/05/2019. us Cathleen Gallegos MD HEMATOLOGY ORDERABLES Final Resu lt EXTERNAL LAB * Urinalysis with Microscopic (11/19/2019 9:24 AM HEAD CORRECTION OFFICER) UA Color - External DARK YELLOW Yellow EXTERNAL LAB UA Appearance - External CLEAR Clear EXTERNAL LAB UA Glucose - External NEG mg/dL EXTERNAL LAB UA Bilirubin - External NEG EXTERNAL LAB UA Ketones - External NEG NEG mg/d EXTERNAL LAB Specific [place], Urine - External 1.015 EXTERNAL LAB UA [...] External 0-2 EXTERNAL LAB 11/19/2019 9:24 AM HEAD CORRECTION OFFICER Narrative EXTERNAL LAB - 12/05/2019 10:44 AM HEAD CORRECTION OFFICER Verified by Monie Siddiqui on 12/05/2019. us Cathleen Gallegos MD URINE ORDERABLES Final Result Performing Organization Address [facility]/ZIP Ca de Phone Number EXTERNAL LAB * (ABNORMAL) CBC with Differential (11/19/2019 9:24 AM HEAD CORRECTION OFFICER) Blood 11/19/2019 9:24 AM HEAD CORRECTION OFFICER Narrative EXTERNAL LAB - 11/25/2019 2:27 PM HEAD CORRECTION OFFICER Verified by Koki Burks on 11/25/2019. Corrected df Cathleen Gallegos MD HEMATOLOGY ORDERABLES Edited Res ult - Final EXTERNAL LAB * (ABNORMAL) Renal function panel (11/19/2019 9:24 AM HEAD CORRECTION OFFICER) Glucose - External 190(H) 70 - 105 [...] ml/min EXTERNAL LAB Blood 11/19/2019 9:24 AM HEAD CORRECTION OFFICER Narrative EXTERNAL LAB - 11/25/2019 2:27 PM HEAD CORRECTION OFFICER Verified by Koki Burks on 11/25/2019. us Cathleen Gallegos MD CHEMISTRY ORDERABLES Final Resul t EXTERNAL LAB * Urinalysis with Microscopic (11/19/2019 9:24 AM HEAD CORRECTION OFFICER) Urine 11/19/2019 9:24 AM HEAD CORRECTION OFFICER Narrative EXTERNAL LAB - 11/25/2019 2:27 PM HEAD CORRECTION OFFICER Verified by Koki Burks on 11/25/2019. Corrected df sb dk yellow not yellow us Cathleen Gallegos MD URINE ORDERABLES Edited Result - Final EXTERNAL LAB documented in this encounter Visit Diagnoses Diagnosis Kidney transplant 01/02/2008 documented in this encounter Additional Health Concerns Infection Onset Date Last Indicated Resolved Time COVID-19 Comment:Tested + on 09/0109/01/2020 09/05/2020 09/25/2020 12: 31 AM HEAD CORRECTION OFFICER documented as of this encounter Care Teams Fashion Coordinator Relationship Specialty Start Date End Date Juan Laguerre MD [address] [facility] [address] [place] [address] PCP - General Family Medicine 01/02/18 Aubrey Crabtree III, MD [address] [facility] [address] [place] [address] Hematology and Medical Oncology 10/01/18 Jaki Nieves, PhD [address] [facility] [address] [place] [address] Genetic Counseling 11/27/18 documented as of this encounter
--- OUTSIDE RECORDS SUMMARY | 2025-08-09 10:30 | XMS_ITS | Encounter Summary ---
Author Organization [facility] Address [address] [place] [address] Care Team Providers Care Batch Plant Supervisor Name Role Phone Juan Laguerre MD Primary Care Provider [phone] Bro AWAN MD, Aubrey Lane Unavailable [phone] Jaki Nieves PhD Unavailable [phone] Source Comments In the event that this is information that is protected by federal Confidentiality of Substance User Disorder Patient Records, 42 CFR Part 2 prohibits the unauthorized disclosure of these records.[facility] Encounter Details Date Type Department Care Team (Late Contact Info) Description 01/04/2020 Orders Only NM Transplant Surgery [address] [facility], 19th Floor [address] [place] [address] Vivi Ponce Social History Tobacco Use Types [...] [address], [address] [place] [address] Apt confirmed-EH documented as of this encounter Procedures Procedure Name Priority Date/Time Associated Diagnosis Comments BK VIRUS DNA QUANT PCR, BLOOD Routine 01/09/2020 6:37 AM MICRO PALEONTOLOGIST URINALYSIS WITH MICROSCOPIC Routine 01/09/2020 6:25 AM MICRO PALEONTOLOGIST PTH, INTACT Routine 01/09/2020 6:22 AM MICRO PALEONTOLOGIST MYCOPHENOLIC ACID Routine 01/09/2020 6:2 2 AM MICRO PALEONTOLOGIST VITAMIN D 25-HYDROXY Routine 01/09/2020 6:22 AM MICRO PALEONTOLOGIST CBC AND DIFFERENTIAL Routine 01/09/2020 6:22 AM MICRO PALEONTOLOGIST LIPID PANEL (AMA) W/LDL CALC Routine 01/09/2020 6:22 AM MICRO PALEONTOLOGIST COMPREHENSIVE METABOLIC PANEL Routine 01/09/2020 6:22 AM MICRO PALEONTOLOGIST documented in this encounter Results * BK Virus DNA Quant PCR, Blood (01/09/2020 6:37 AM MICRO PALEONTOLOGIST) BK Virus DNA, Qn PCR - External <390 copies/ml EXTERNAL LAB 01/09/2020 6:37 AM MICRO PALEONTOLOGIST Narrative EXTERNAL LAB - 01/13/2020 12:57 PM CDT Verified by Callie Cassidy on 01/13/2020. us Physician Non-Staff IMMUNOLOGY ORDERABLES Final Result EXTERNAL LAB * (ABNORMAL) Urinalysis with microscopic (01/09/2020 6:25 AM MICRO PALEONTOLOGIST) Specific [place], Urine - External 1.010 1.003 - 1.035 [...] 0-5, /hpf EXTERNAL LAB 01/09/2020 6:25 AM MICRO PALEONTOLOGIST Narrative EXTERNAL LAB - 01/09/2020 1:48 PM MICRO PALEONTOLOGIST Verified by Monie Siddiqui on 01/09/2020. Edwin Del Toro MD URINE ORDERABLES Final Res ult EXTERNAL LAB * Mycophenolic Acid (01/09/2020 6:22 AM MICRO PALEONTOLOGIST) Mycophenolic Acid - External 2.5 1.0 - 3.5 ug/mL EXTERNAL LAB 01/09/2020 6:22 AM MICRO PALEONTOLOGIST Narrative EXTERNAL LAB - 01/15/2020 8:25 AM CDT Verified by Monie Siddiqui on 01/15/2020. Edwin Del Toro MD CHEMISTRY ORDERABLES Final Result EXTERNAL LAB * Vitamin D 25-Hydroxy (01/09/2020 6:22 AM MICRO PALEONTOLOGIST) Vitamin D, 25-Hydroxy, Total - External 35 ng/mL EXTERNAL LAB 01/09/2020 6:22 AM MICRO PALEONTOLOGIST Narrative EXTERNAL LAB - 01/09/2020 1:48 PM MICRO PALEONTOLOGIST Verified by Monie Siddiqui on 01/09/2020. Edwin Del Toro MD CHEMISTRY ORDERABLES Final Result EXTERNAL LAB * (ABNORMAL) PTH,Intact (01/09/2020 6:22 AM MICRO PALEONTOLOGIST) PTH, Intact - External 79(H) 14 - 72 pg/mL EXTERNAL LAB 01/09/2020 6:22 AM MICRO PALEONTOLOGIST Narrative EXTERNAL LAB - 01/09/2020 1:48 PM MICRO PALEONTOLOGIST Verified by Monie Siddiqui on 01/09/2020. Edwin Del Toro MD CHEMISTRY ORDERABLES Final Result Performing Organization Address [facility] Co de Phone Number EXTERNAL LAB * (ABNORMAL) Lipid Panel(AMA) w/LDL Calculated (01/09/2020 6:22 AM MICRO PALEONTOLOGIST) Total Cholesterol - External 230(H) 0 - 199 mg/dL EXTERNAL LAB Triglycerides - External 184(H) 0 - 149 mg/dL EXTERNAL LAB HDL Cholesterol - External 39(L) 40 - 100 mg/dL EXTERNAL LAB Cholesterol LDL Direct - External 154(H) <130 mg/dL EXTERNAL LAB 01/09/2020 6:22 AM MICRO PALEONTOLOGIST Narrative EXTERNAL LAB - 01/09/2020 1:48 PM MICRO PALEONTOLOGIST Verified by Monie Siddiqui on 01/09/2020. Edwin Del Toro MD CHEMISTRY ORDERABLES Final Result Performing Organization Address [facility] de Phone Number EXTERNAL LAB * (ABNORMAL) Comp Metabolic Panel (01/09/2020 6:22 AM MICRO PALEONTOLOGIST) Sodium - External 138 133 - 145 [...] 51(L) >=60 EXTERNAL LAB 01/09/2020 6:22 AM MICRO PALEONTOLOGIST Narrative EXTERNAL LAB - 01/09/2020 1:48 PM MICRO PALEONTOLOGIST Verified by Monie Siddiqui on 01/09/2020. us Edwin Del Toro MD CHEMISTRY ORDERABLES Final Result EXTERNAL LAB * (ABNORMAL) CBC with Differential (01/09/2020 6:22 AM MICRO PALEONTOLOGIST) White Blood Cells - External 10.21 10(3)/mcL [...] Absolute - External 2.86 10(3)/mcL EXTERNAL LAB [place] Absolute - External 1.21(H) 0.10 - 0.80 10(3)/mcL EXTERNAL LAB - External 0.12 0.00 - 0.30 10(3)/mcL EXTERNAL LAB Basophil Absolute - External 0.13(H) 0.00 - 0 10(3)/mcL EXTERNAL LAB Nucleated RBC - External 0.00 EXTERNAL LAB 01/09/2020 6:22 AM MICRO PALEONTOLOGIST Narrative EXTERNAL LAB - 01/09/2020 1:48 PM MICRO PALEONTOLOGIST Verified by Monie Siddiqui on 01/09/2020. us Edwin Del Toro MD HEMATOLOGY ORDERABLES Joana kathi Result EXTERNAL LAB documented in this encounter Visit Diagnoses Diagnosis 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 transplant documented in this encounter Additional Health Concerns Infection Onset Date Last Indicated Resolved Time COVID-19 Comment:Tested + on 09/0109/01/2020 09/05/2020 09/25/2020 12: 31 AM MICRO PALEONTOLOGIST documented as of this encounter Care Teams Batch Plant Supervisor Relationship Specialty Start Date End Date Juan Laguerre MD [address] [address] PCP - General Family Medicine 01/02/18 Aubrey Crabtree III, MD [address] [facility] [address] [place] [address] Hematology and Medical Oncology 10/01/18 Jaki Nieves, PhD [address] [facility] [address] [address] [place] [address] Genetic Counseling 11/27/18 documented as of this encounter
--- OUTSIDE RECORDS SUMMARY | 2025-08-09 10:30 | XMS_ITS | Encounter Summary ---
Author Organization [facility] Address [address] [place] [address] Care Team Providers Care Spool Sander Name Role Phone Juan Laguerre MD Primary Care Provider [phone] Bro AWAN MD, Aubrey Lane Unavailable [phone] Jaki Nieves PhD Unavailable [phone] Source Comments In the event that this is information that is protected by federal Confidentiality of Substance User Disorder Patient Records, 42 CFR Part 2 prohibits the unauthorized disclosure of these records.[facility] Encounter Details Date Type Department Care Team (Late Contact Info) Description 06/20/2020 Orders Only NM Transplant Surgery [address] [facility], 19th Floor [address] [place] [address] Vivi Ponce Social History Tobacco Use Types [...] St, [address] Floor [address] [place] [address] Apt confirmed-EH documented as of this encounter Procedures Procedure Name Priority Date/Time Associated Diagnosis Comments BK VIRUS DNA QUANT PCR, BLOOD Routine 06/22/2020 5:42 PM CDT URINALYSIS WITH MICROSCOPIC Routine 06/22/2020 5:42 PM CDT 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 ([facility]) CBC AND DIFFERENTIAL Routine 06/22/2020 5:42 PM CDT 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 ([facility]) COMPREHENSIVE METABOLIC PANEL Routine 06/22/2020 5:42 PM CDT 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 ([facility]) documented in this encounter Results * BK [...] with Microscopic (06/22/2020 5:42 PM CDT) Specific [place], Urine - External 1.020 1.003 - 1.035 [...] Absolute - External 3.63(H) 10(3)/mcL EXTERNAL LAB [place] Absolute - External 1.02(H) 0.10 - 0.80 [...] on 09/0109/01/2020 09/05/2020 09/25/2020 12: 31 AM 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 [address], [place] [id number] PCP - General Family Medicine 01/02/18 Aubrey Crabtree III, MD [address] [facility] [address] [place] [address] Hematology and Medical Oncology 10/01/18 Jaki Nieves, PhD [address] [facility] [address] [place] [address] Genetic Counseling 11/27/18 documented as of this encounter
--- OUTSIDE RECORDS SUMMARY | 2025-08-09 10:30 | XMS_ITS | Encounter Summary ---
Author Organization [facility] Address [address] [place] [address] Care Team Providers Care Arts Manager Name Role Phone Juan Laguerre MD Primary Care Provider [phone] Bro AWAN MD, Aubrey Lane Unavailable [phone] Jaki Nieves PhD Unavailable [phone] Source Comments In the event that this is information that is protected by federal Confidentiality of Substance User Disorder Patient Records, 42 CFR Part 2 prohibits the unauthorized disclosure of these records.[facility] Encounter Details Date Type Department Care Team (Late Contact Info) Description 09/28/2019 Orders Only NM Transplant Surgery [address] [facility], 19th Floor [address] [place] [address] Renetta Henao Social History Tobacco Use Types [...] [address], [address] [place] [address] Apt confirmed-EH documented as of this encounter Procedures Procedure Name Priority Date/Time Associated Diagnosis Comments BK VIRUS QUANT VIRAL LOAD, URINE Routine 10/08/2019 8:58 AM UROLOGY SURGEON PTH, INTACT Routine 10/08/2019 8:58 AM UROLOGY SURGEON VITAMIN D 25-HYDROXY Routine 10/08/2019 8:58 AM UROLOGY SURGEON PROTEIN/CREAT RATIO, RANDOM URINE Routine 10/08/2019 8:58 AM UROLOGY SURGEON URINALYSIS WITH MICROSCOPIC Routine 10/08/2019 8:58 AM UROLOGY SURGEON CBC AND DIFFERENTIAL Routine 10/08/2019 8:58 AM UROLOGY SURGEON HEMOGLOBIN A1C Routine 10/08/2019 8:58 AM UROLOGY SURGEON HEPATIC FUNCTION PANEL Routine 10/08/2019 8:58 AM UROLOGY SURGEON RENAL FUNCTION PANEL Routine 10/08/2019 8:58 AM UROLOGY SURGEON LIPID PANEL (AMA) W/LDL CALC Routine 10/08/2019 8:58 AM UROLOGY SURGEON documented in this encounter Results * (ABNORMAL) Hepatic function panel (10/08/2019 8:58 AM UROLOGY SURGEON) Total Bilirubin - External 0.4 0.3 - [...] External 3.7 EXTERNAL LAB 10/08/2019 8:58 AM UROLOGY SURGEON Narrative EXTERNAL LAB - 10/15/2019 2:04 PM UROLOGY SURGEON Verified by Monie Siddiqui on 10/15/2019. Cathleen Gallegos MD CHEMISTRY ORDERABLES Final Resul t Performing Organization Address City/[facility]/ZIP Co de Phone Number EXTERNAL LAB * (ABNORMAL) Renal function panel (10/08/2019 8:58 AM UROLOGY SURGEON) Phosphorous - External 2.9 2.5 - 4.6 [...] 50.2 ml/min EXTERNAL LAB 10/08/2019 8:58 AM UROLOGY SURGEON Narrative EXTERNAL LAB - 10/15/2019 2:04 PM UROLOGY SURGEON Verified by Monie Siddiqui on 10/15/2019. Cathleen Gallegos MD CHEMISTRY ORDERABLES Final Resul t Performing Organization Address City/[facility]/ZIP Co de Phone Number EXTERNAL LAB * (ABNORMAL) CBC with Differential (10/08/2019 8:58 AM UROLOGY SURGEON) White Blood Cells - External 9.6 4.0 [...] Absolute - External 2,400 cells/uL EXTERNAL LAB [place] Absolute - External 1,344(H) 0 - 1.200 [...] External 57 EXTERNAL LAB 10/08/2019 8:58 AM UROLOGY SURGEON Narrative EXTERNAL LAB - 10/15/2019 2:04 PM UROLOGY SURGEON Verified by Monie Siddiqui on 10/15/2019. Cathleen Gallegos MD HEMATOLOGY ORDERABLES Final Resu lt EXTERNAL LAB * (ABNORMAL) Urinalysis with Microscopic (10/08/2019 8:58 AM UROLOGY SURGEON) UA Color - External Yellow Yellow EXTERNAL LAB UA Appearance - External Clear Clear EXTERNAL LAB UA Glucose - External 1+(A) mg/dL EXTERNAL LAB UA Bilirubin - External NEG mg/dL EXTERNAL LAB UA Ketones - External NEG mg/dL EXTERNAL LAB Specific [place], Urine - External 1.015 1.015 - 1.020 [...] External 0-2 EXTERNAL LAB 10/08/2019 8:58 AM UROLOGY SURGEON Narrative EXTERNAL LAB - 10/15/2019 2:04 PM UROLOGY SURGEON Verified by Monie Siddiqui on 10/15/2019. us Cathleen Gallegos MD URINE ORDERABLES Final Result Performing Organization Address [facility] de Phone Number EXTERNAL LAB * (ABNORMAL) Lipid Panel(AMA) w/LDL Calculated (10/08/2019 8:58 AM UROLOGY SURGEON) Total Cholesterol - External 234(H) 0 - 200 mg/dL EXTERNAL LAB Triglycerides - External 403(H) 0 - 150 mg/dL EXTERNAL LAB HDL Cholesterol - External 33 23 - 92 mg/dL EXTERNAL LAB Cholesterol LDL Direct - External SEE NOTE mg/dL EXTERNAL LAB 10/08/2019 8:58 AM UROLOGY SURGEON Narrative EXTERNAL LAB - 10/15/2019 2:04 PM UROLOGY SURGEON Verified by Monie Siddiqui on 10/15/2019. us Cathleen Gallegos MD CHEMISTRY ORDERABLES Final Resul t Performing Organization Address [facility] de Phone Number EXTERNAL LAB * (ABNORMAL) PTH,Intact (10/08/2019 8:58 AM UROLOGY SURGEON) PTH, Intact - External 115(H) 15 - 65 PG/ML EXTERNAL LAB 10/08/2019 8:58 AM UROLOGY SURGEON Narrative EXTERNAL LAB - 10/15/2019 2:04 PM UROLOGY SURGEON Verified by Monie Siddiqui on 10/15/2019. us Cathleen Gallegos MD CHEMISTRY ORDERABLES Final Resul t Performing Organization Address [facility] de Phone Number EXTERNAL LAB * (ABNORMAL) Vitamin D 25-Hydroxy (10/08/2019 8:58 AM UROLOGY SURGEON) Vitamin D, 25-Hydroxy, Total - External 26.9(L) 30.0 - 100.0 EXTERNAL LAB 10/08/2019 8:58 AM UROLOGY SURGEON Narrative EXTERNAL LAB - 10/15/2019 2:04 PM UROLOGY SURGEON Verified by Monie Siddiqui on 10/15/2019. us Cathleen Gallegos MD CHEMISTRY ORDERABLES Final Resul t Performing Organization Address City/[facility] Co de Phone Number EXTERNAL LAB * (ABNORMAL) Hemoglobin A1c (10/08/2019 8:58 AM UROLOGY SURGEON) Hemoglobin A1C - External 11.8(H) 4.8 - 5.6 % EXTERNAL LAB 10/08/2019 8:58 AM UROLOGY SURGEON Narrative EXTERNAL LAB - 10/15/2019 2:04 PM UROLOGY SURGEON Verified by Monei Siddiqui on 10/15/2019. us Cathleen Gallegos MD CHEMISTRY ORDERABLES Final Resul t EXTERNAL LAB * (ABNORMAL) Protein /Creatinine Ratio, Urine (10/08/2019 8:58 AM UROLOGY SURGEON) Urine Creatinine, Random - External 107.8 EXTERNAL LAB Protein, Urine - External 74.4 EXTERNAL LAB Prot/Creat Ratio - External 690(H) 0 - 200 EXTERNAL LAB 10/08/2019 8:58 AM UROLOGY SURGEON Narrative EXTERNAL LAB - 10/15/2019 2:04 PM UROLOGY SURGEON Verified by Monie Siddiqui on 10/15/2019. us Cathleen Gallegos MD URINE ORDERABLES Final Result Performing Organization Address City/[facility]/ZIP Co de Phone Number EXTERNAL LAB * BK Virus Quant Viral Load, Urine (10/08/2019 8:58 AM UROLOGY SURGEON) BK Quantitation Urine - External 10,300 EXTERNAL LAB 10/08/2019 8:58 AM UROLOGY SURGEON Narrative EXTERNAL LAB - 10/15/2019 2:04 PM UROLOGY SURGEON Verified by Monie Siddiqui on 10/15/2019. us [...] 10/29 09/01/2020 09/05/2020 09/25/2020 12: 31 AM UROLOGY SURGEON documented as of this encounter Care Teams Arts Manager Relationship Specialty Start Date End Date Juan Laguerre MD [address] [facility] [address] [place] [id number] PCP - General Family Medicine 01/02/18 Aubrey Crabtree III, MD [address] [facility] [address] [place] [address] Hematology and Medical Oncology 10/01/18 Jaki Nieves, PhD [address] [facility] [address] [place] [address] Genetic Counseling 11/27/18 documented as of this encounter
--- OUTSIDE RECORDS SUMMARY | 2025-08-09 10:30 | XMS_ITS | Encounter Summary ---
Author Organization [facility] Address [address] [place] [address] Care Team Providers Care Drag Seiner Name Role Phone Juan Laguerre MD Primary Care Provider [phone] Bro AWAN MD, Aubrey Lane Unavailable [phone] Jaki Nieves PhD Unavailable [phone] Source Comments In the event that this [...] [facility], 19[facility] Floor [address] [place], [place] [address] Cathleen Gallegos MD [address] [facility] [address], [place] [address] Social History Tobacco Use Types Packs/Day Years [...] [facility], [facility] Floor [address] [place] [address] Apt confirmed-EH documented as of this encounter Visit Diagnoses Diagnosis Kidney transplant 01/02/2008 documented in this encounter Additional Health Concerns Infection Onset Date Last Indicated Resolved Time COVID-19 Comment:Tested + on 09/0109/01/2020 09/05/2020 09/25/2020 12: 31 AM CLERK RATING documented as of this encounter Care Teams Drag Seiner Relationship Specialty Start Date End Date Juan Laguerre MD [address] [facility] [address] [place] [address] PCP - General Family Medicine 01/02/18 Aubrey Crabtree III, MD [address] [facility] [address] [place] [address] Hematology and Medical Oncology 10/01/18 Jaki Nieves, PhD [address] [facility] [address] [place] [address] Genetic Counseling 11/27/18 documented as of this encounter
--- OUTSIDE RECORDS SUMMARY | 2025-08-09 10:30 | XMS_ITS | Encounter Summary ---
Author Organization [facility] Address [address] [place] [address] Care Team Providers Care Marketing And Public Relations Manager Name Role Phone Juan Laguerre MD Primary Care Provider [phone] Bro AWAN MD, Aubrey Lane Unavailable [phone] Jaki Nieves PhD Unavailable [phone] Source Comments In the event that this is information that is protected by federal Confidentiality of Substance User Disorder Patient Records, 42 CFR Part 2 prohibits the unauthorized disclosure of these records.[facility] Encounter Details Date Type Department Care Team (Late Contact Info) Description 05/03/2025 Orders Only NM Transplant Surgery [address] [facility], [address]th [address] [place] [address] Colleen Christy Social History Tobacco Use Types [...] [address], [address] [place], [place] [address] Apt confirmed-EH documented as of this encounter Visit Diagnoses Diagnosis 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 Type II diabetes mellitus with complication (CMS-HCC) Type II or unspecified type diabetes mellitus with unspecified complication, not stated as uncontrolled documented in this encounter Care Teams Marketing And Public Relations Manager Relationship Specialty Start Date End Date Juan Laguerre MD [address] [facility] [address] [place] [address] PCP - General Family Medicine 01/02/18 Aubrey Crabtree III, MD [address] [facility] [address] [place] [address] Hematology and Medical Oncology 10/01/18 Jaki Nieves, PhD [address] [place], [place] [address] Genetic Counseling 11/27/18 documented as of this encounter
--- OUTSIDE RECORDS SUMMARY | 2025-08-09 10:30 | XMS_ITS | Encounter Summary ---
Author Organization [facility] Address [address] [place] [address] Care Team Providers Care Body And Fender Worker Name Role Phone Juan Laguerre MD Primary Care Provider [phone] Bro AWAN MD, Aubrey Lane Unavailable [phone] Jaki Nieves PhD Unavailable [phone] Source Comments In the event that this is information that is protected by federal Confidentiality of Substance User Disorder Patient Records, 42 CFR Part 2 prohibits the unauthorized disclosure of these records.[facility] Encounter Details Date Type Department Care Team (Late Contact Info) Description 03/28/2020 Orders Only NM Transplant Surgery [address] [facility], 19th Floor [address] [place] [address] Vivi Ponce Social History Tobacco Use Types [...] [address], [address] [place] [address] Apt confirmed-EH documented as of this encounter [...] ORDERABLES Joana l Result Performing Organization Address [facility] de Phone Number EXTERNAL LAB * Mycophenolic Acid (04/15/2020 5:31 AM CDT) Mycophenolic Acid - External 2.6 1.0 - 3.5 ug/mL EXTERNAL LAB 04/15/2020 5:31 AM CDT Narrative EXTERNAL LAB - 04/19/2020 7:31 AM CDT Verified by Monie Siddiqui on 04/19/2020. Edwin Del Toro MD CHEMISTRY ORDERABLES Final Result Performing Organization Address [facility] de Phone Number EXTERNAL LAB * Vitamin D 25-Hydroxy (04/15/2020 5:31 AM CDT) Pathologist [facility] Vitamin D, 25-Hydroxy, Total - External 21 ng/mL EXTERNAL LAB 04/15/2020 5:31 AM CDT Narrative EXTERNAL LAB - 04/15/2020 1:11 PM CDT Verified by Monie Siddiqui on 04/15/2020. Edwin Del Toro MD CHEMISTRY ORDERABLES Final Result Performing Organization Address [facility] de Phone Number EXTERNAL LAB * (ABNORMAL) Urinalysis with microscopic (04/15/2020 5:31 AM CDT) Specific [place], Urine - External 1.017 1.003 - 1.035 [...] ORDERABLES Final Res ult Performing Organization Address [facility] Co de Phone Number EXTERNAL LAB * (ABNORMAL) PTH,Intact (04/15/2020 5:31 AM CDT) PTH, Intact - External 114(H) 14 - 72 pg/mL EXTERNAL LAB 04/15/2020 5:31 AM CDT Narrative EXTERNAL LAB - 04/15/2020 1:11 PM CDT Verified by Monie Siddiqui on 04/15/2020. Edwin Del Toro MD CHEMISTRY ORDERABLES Final Result Performing Organization Address [facility] de Phone Number EXTERNAL [...] CHEMISTRY ORDERABLES Final Result Performing Organization Address City/[facility] Co de Phone Number EXTERNAL LAB * [...] with Differential (04/15/2020 5:31 AM CDT) Pathologist [facility] White Blood Cells - External 11.72(H) 10(3)/mcL [...] (cells/uL) - External 6.41 cells/uL EXTERNAL LAB [place] Absolute - External 1.58(H) 0.10 - 0.80 [...] on 09/0109/01/2020 09/05/2020 09/25/2020 12: 31 AM ADMINISTRATION CLERK documented as of this encounter Care Teams Body And Fender Worker Relationship Specialty Start Date End Date Juan Laguerre MD [address] [place] [address] PCP - General Family Medicine 01/02/18 Aubrey Crabtree III, MD [address] [facility] [address] [place] [phone] Hematology and Medical Oncology 10/01/18 Jaki Nieves, PhD [address] [facility] [address] [place] [address] Genetic Counseling 11/27/18 documented as of this encounter
--- OUTSIDE RECORDS SUMMARY | 2025-08-09 10:30 | XMS_ITS | Encounter Summary ---
Author Organization [facility] Address [address] [place] [address] Care Team Providers Care Administration Vice President Name Role Phone Juan Laguerre MD Primary Care Provider [phone] Bro AWAN MD, Aubrey Lane Unavailable [phone] Jaki Nieves PhD Unavailable [phone] Source Comments In the event that this is information that is protected by federal Confidentiality of Substance User Disorder Patient Records, 42 CFR Part 2 prohibits the unauthorized disclosure of these records.[facility] Encounter Details Date Type Department Care Team (Late st Contact Info) Description 10/26/2019 Orders Only NM Transplant Surgery [address] [facility], [address]th [address] [place], [place] [address] Cathleen Gallegos MD [address] [facility] [address] [address] Social History Tobacco Use Types Packs/Day Years [...] Office Visit NM Transplant Surgery [address] [facility], 19th Floor [address] [place] [address] Apt confirmed-EH documented as of this encounter Procedures Procedure Name Priority Date/Time Associated Diagnosis Comments CARBOHYDRATE ANTIGEN 19-9 (CA19-9) Routine 10/26/2019 12:41 PM THERMITE BOMB LOADER CBC AND DIFFERENTIAL Routine 10/26/2019 12:41 PM THERMITE BOMB LOADER COMPREHENSIVE METABOLIC PANEL Routine 10/26/2019 12:41 PM THERMITE BOMB LOADER documented in this encounter Results * Carbohydrate Antigen 19-9 (10/26/2019 12:41 PM THERMITE BOMB LOADER) CA 19 9 - External 11 EXTERNAL LAB 10/26/2019 12:4 1 PM THERMITE BOMB LOADER Narrative EXTERNAL LAB - 12/05/2019 10:44 AM THERMITE BOMB LOADER Verified by Monie Siddiqui on 12/05/2019. us Cathleen Gallegos MD IMMUNOLOGY ORDERABLES Final Resu lt EXTERNAL LAB * (ABNORMAL) CBC with Differential (10/26/2019 12:41 PM THERMITE BOMB LOADER) White Blood Cells - External 11.4(H) 4.0 [...] Lymph Absolute - External 2,860 EXTERNAL LAB [place] Absolute - External 915 EXTERNAL LAB Basophil Absolute - External 114(H) 0 - 100 cells/uL EXTERNAL LAB Lymphocytes - External 25 19 - 40 % EXTERNAL LAB Monocytes - External 8 4 - 12 % EXTERNAL LAB Basophils - External 1 0 - 1 % EXTERNAL LAB 10/26/2019 12:4 1 PM THERMITE BOMB LOADER Narrative EXTERNAL LAB - 10/26/2019 4:19 PM THERMITE BOMB LOADER Verified by Monie Siddiqui on 10/26/2019. Physician Non-Staff HEMATOLOGY ORDERABLES Final Result EXTERNAL LAB * (ABNORMAL) Comp Metabolic Panel (10/26/2019 12:41 PM THERMITE BOMB LOADER) Glucose - External 139(H) 70 - 105 [...] >60.0 EXTERNAL LAB 10/26/2019 12:4 1 PM THERMITE BOMB LOADER Narrative EXTERNAL LAB - 10/26/2019 4:19 PM THERMITE BOMB LOADER Verified by Monie Siddiqui on 10/26/2019. Physician [...] on 09/0109/01/2020 09/05/2020 09/25/2020 12: 31 AM THERMITE BOMB LOADER documented as of this encounter Care Teams Administration Vice President Relationship Specialty Start Date End Date Juan Laguerre MD [address] [facility] [address], [place] [address] PCP - General Family Medicine 01/02/18 Aubrey Crabtree III, MD [address] [facility] [address], [place] [address] Hematology and Medical Oncology 10/01/18 Jaki Nieves, PhD [address] [facility] [address] [place] [address] Genetic Counseling 11/27/18 documented as of this encounter
--- OUTSIDE RECORDS SUMMARY | 2025-08-09 10:30 | XMS_ITS | Encounter Summary ---
Author Organization [facility] Address [address] [place] [address] Care Team Providers Care Ladle Operator Name Role Phone Juan Laguerre MD Primary Care Provider [phone] Bro AWAN MD, Aubrey aLne Unavailable [phone] Jaki Nieves PhD Unavailable [phone] Source Comments In the event that this is information that is protected by federal Confidentiality of Substance User Disorder Patient Records, 42 CFR Part 2 prohibits the unauthorized disclosure of these records.[facility] Encounter Details Date Type Department Care Team (Late st Contact Info) Description 02/22/2025 Orders Only NM Transplant Surgery [address] [facility], 19th [address] [place], [place] [address] Cathleen Gallegos MD [address] [facility] [address], [place] [address] Social History Tobacco Use Types Packs/Day Years [...] [facility] [address] [place], [place] [address] Apt confirmed-EH documented as of this encounter Visit Diagnoses Diagnosis Kidney replaced by transplant documented in this encounter Care Teams Ladle Operator Relationship Specialty Start Date End Date Juan Laguerre MD [address] [facility] [address] [place] [address] PCP - General Family Medicine 01/02/18 Aubrey Crabtree III, MD [address] [facility] [address] [place] [address] Hematology and Medical Oncology 10/01/18 Jaki Nieves, PhD [address] [facility] [address] [place], [place] [address] Genetic Counseling 11/27/18 documented as of this encounter
--- OUTSIDE RECORDS SUMMARY | 2025-08-09 10:30 | XMS_ITS | Encounter Summary ---
Author Organization [facility] Address [address] [place] [address] Care Team Providers Care Circular Gang Saw Operator Name Role Phone Juan Laguerre MD Primary Care Provider [phone] Bro AWAN MD, Aubrey Lane Unavailable [phone] Jaki Nieves PhD Unavailable [phone] Source Comments In the event that this is information that is protected by federal Confidentiality of Substance User Disorder Patient Records, 42 CFR Part 2 prohibits the unauthorized disclosure of these records.[facility] Encounter Details Date Type Department Care Team (Late Contact Info) Description 02/01/2020 Orders Only NM Transplant Surgery [address] [facility], 19th Floor [address] [place] [address] Vivi Ponce Social History Tobacco Use Types [...] Surgery [address] [facility] [address], [address] Floor [address] [place] [address] Apt confirmed-EH documented as of this encounter [...] on 09/0109/01/2020 09/05/2020 09/25/2020 12: 31 AM BODY SHOP TECHNICIAN documented as of this encounter Care Teams Circular Gang Saw Operator Relationship Specialty Start Date End Date Juan Laguerre MD [address] [facility] [address], [place] [address] PCP - General Family Medicine 01/02/18 Aubrey Crabtree III, MD [address] [facility] [address] [place] [address] Hematology and Medical Oncology 10/01/18 Jaki Nieves, PhD [address] [facility] [address] [place] [address] Genetic Counseling 11/27/18 documented as of this encounter
--- OUTSIDE RECORDS SUMMARY | 2025-08-09 10:30 | XMS_ITS | Encounter Summary ---
Author Organization [facility] Address [address] [place] [address] Care Team Providers Care Slip Tender Name Role Phone Juan Laguerre MD Primary Care Provider [phone] Bro AWAN MD, Aubrey Lane Unavailable [phone] Jaki Nieves PhD Unavailable [phone] Source Comments In the event that this is information that is protected by federal Confidentiality of Substance User Disorder Patient Records, 42 CFR Part 2 prohibits the unauthorized disclosure of these records.[facility] Encounter Details Date Type Department Care Team (Late st Contact Info) Description 05/17/2025 Orders Only NM Transplant Surgery [address] [facility], 19th Floor [address] [place], [place] [address] Cathleen Gallegos MD [address] [facility] [address] [address] Social History Tobacco Use Types Packs/Day Years [...] Office Visit NM Transplant Surgery [address] [facility], [address]th [address] [place] [address] Apt confirmed-EH documented as of this encounter [...] monitoring documented in this encounter Care Teams Slip Tender Relationship Specialty Start Date End Date Juan Laguerre MD [address] [facility] [address] [place] [address] PCP - General Family Medicine 01/02/18 Aubrey Crabtree III, MD [address] [address] Hematology and Medical Oncology 10/01/18 Jaki Nieves, PhD [address] [facility] [address] [place], [place] [address] Genetic Counseling 11/27/18 documented as of this encounter
--- OUTSIDE RECORDS SUMMARY | 2025-08-09 10:30 | XMS_ITS | Encounter Summary ---
Author Organization [facility] Address [address] [place] [address] Care Team Providers Care Assistant Hall Director Name Role Phone Juan Laguerre MD Primary Care Provider [phone] Bro AWAN MD, Aubrey Lane Unavailable [phone] Jaki Nieves PhD Unavailable [phone] Source Comments In the event that this [...] [facility] [place] [place], 19th [address] [place] [address] Colleen Christy Social History Tobacco Use Types [...] [address], [address] [place], [place] [address] Apt confirmed-EH documented as of this encounter Visit Diagnoses Diagnosis 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 Type II diabetes mellitus with complication (CMS-HCC) Type II or unspecified type diabetes mellitus with unspecified complication, not stated as uncontrolled documented in this encounter Care Teams Assistant Hall Director Relationship Specialty Start Date End Date Juan Laguerre MD [address] [facility] [address] [place] [address] PCP - General Family Medicine 01/02/18 Aubrey Crabtree III, MD [address] [facility] [address] [place] [address] Hematology and Medical Oncology 10/01/18 Jaki Nieves, PhD [address] [place], [place] [address] Genetic Counseling 11/27/18 documented as of this encounter
--- OUTSIDE RECORDS SUMMARY | 2025-08-09 10:30 | XMS_ITS | Encounter Summary ---
Author Organization [facility] Address [address] [place] [address] Care Team Providers Care Manager Channel Name Role Phone Juan Laguerre MD Primary Care Provider [phone] Bro AWAN MD, Aubrey Lane Unavailable [phone] Jaki Nieves PhD Unavailable [phone] Source Comments In the event that this is information that is protected by federal Confidentiality of Substance User Disorder Patient Records, 42 CFR Part 2 prohibits the unauthorized disclosure of these records.[facility] Encounter Details Date Type Department Care Team (Late Contact Info) Description 04/25/2020 Orders Only NM Transplant Surgery [address] [facility], 19th [address] [place] [address] Vivi Ponce Social History Tobacco Use Types [...] [address], [address] [place] [address] Apt confirmed-EH documented as of this encounter [...] CHEMISTRY ORDERABLES Final Result Performing Organization Address [facility] de Phone Number EXTERNAL LAB * Vitamin D 25-Hydroxy (05/06/2020 7:26 AM CDT) Vitamin D, 25-Hydroxy, Total - External 26 ng/mL EXTERNAL LAB 05/06/2020 7:26 AM CDT Narrative EXTERNAL LAB - 05/07/2020 8:58 AM CDT Verified by Monie Siddiqui on 05/07/2020. Edwin Del Toro MD CHEMISTRY ORDERABLES Final Result Performing Organization Address [facility] de Phone Number EXTERNAL LAB * (ABNORMAL) Urinalysis with microscopic (05/06/2020 7:26 AM CDT) Specific [place], Urine - External 1.014 1.003 - 1.035 [...] ORDERABLES Final Res ult Performing Organization Address [facility] de Phone Number EXTERNAL LAB * (ABNORMAL) PTH,Intact (05/06/2020 7:26 AM CDT) PTH, Intact - External 110(H) 14 - 72 pg/mL EXTERNAL LAB 05/06/2020 7:26 AM CDT Narrative EXTERNAL LAB - 05/07/2020 8:58 AM CDT Verified by Monie Siddiqui on 05/07/2020. Edwin Del Toro MD CHEMISTRY ORDERABLES Final Result Performing Organization Address [facility] de Phone Number EXTERNAL LAB * [...] CHEMISTRY ORDERABLES Final Result Performing Organization Address [facility] de Phone Number EXTERNAL LAB * [...] d Result - Final Performing Organization Address [facility] de Phone Number EXTERNAL LAB * [...] CHEMISTRY ORDERABLES Final Result Performing Organization Address [facility] de Phone Number EXTERNAL LAB * [...] Absolute - External 3.15 10(3)/mcL EXTERNAL LAB [place] Absolute - External 1.21(H) 0.10 - 0.80 [...] on 09/0109/01/2020 09/05/2020 09/25/2020 12: 31 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
--- OUTSIDE RECORDS SUMMARY | 2025-08-09 10:30 | XMS_ITS | Encounter Summary ---
Author Organization [facility] Address [address] [place] [address] Care Team Providers Care Test Desk Operator Name Role Phone Juan Laguerre MD Primary Care Provider [phone] Bro AWAN MD, Aubrey Lane Unavailable [phone] Jaki Nieves PhD Unavailable [phone] Source Comments In the event that this is information that is protected by federal Confidentiality of Substance User Disorder Patient Records, 42 CFR Part 2 prohibits the unauthorized disclosure of these records.[facility] Encounter Details Date Type Department Care Team (Late Contact Info) Description 07/29/2019 Procedure Pass NM Radiology [address], 4th [place] [address] Social History Tobacco Use Types Packs/Day Years [facility], [facility] Floor [address] [place] [address] Apt confirmed-EH documented as of this encounter Visit Diagnoses Not on filedocumented in this encounter Additional Health Concerns Infection Onset Date Last Indicated Resolved Time COVID-19 Comment:Tested + on 09/0109/01/2020 09/05/2020 09/25/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
--- OUTSIDE RECORDS SUMMARY | 2025-08-09 10:30 | XMS_ITS | Encounter Summary ---
Author Organization [facility] Address [address] [place] [address] Care Team Providers Care Shoe Dresser Name Role Phone Juan Laguerre MD Primary Care Provider [phone] Bro AWAN MD, Aubrey Lane Unavailable [phone] Jaki Nieves PhD Unavailable [phone] Source Comments In the event that this is information that is protected by federal Confidentiality of Substance User Disorder Patient Records, 42 CFR Part 2 prohibits the unauthorized disclosure of these records.[facility] Encounter Details Date Type Department Care Team (Late Contact Info) Description 12/14/2024 Orders Only NM Transplant Surgery [address] [facility], 19th Floor [address] [place] [address] Joshua Bee RN Social History Tobacco Use [...] Surgery [address] [facility], 19th Floor [address] [place], [place] [address] Apt confirmed-EH documented as of this encounter Visit Diagnoses Diagnosis 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 transplant Adenocarcinoma of pancreas (CMS-HCC) Malignant neoplasm of pancreas, part unspecified documented in this encounter Care Teams Shoe Dresser Relationship Specialty Start Date End Date Juan Laguerre MD [address] [facility] [address] [place] [id number] PCP - General Family Medicine 01/02/18 Aubrey Crabtree III, MD [address] [facility] [address] [place] [address] Hematology and Medical Oncology 10/01/18 Jaki Nieves, PhD [address] [facility] [address] [place] [address] Genetic Counseling 11/27/18 documented as of this encounter
--- OUTSIDE RECORDS SUMMARY | 2025-08-09 10:30 | XMS_ITS | Encounter Summary ---
Author Organization [facility] Address [address] [place] [address] Care Team Providers Care Systems Qa Analyst Name Role Phone Juan Laguerre MD Primary Care Provider [phone] Bro AWAN MD, Aubrey Lane Unavailable [phone] Jaki Nieves PhD Unavailable [phone] Source Comments In the event that this is information that is protected by federal Confidentiality of Substance User Disorder Patient Records, 42 CFR Part 2 prohibits the unauthorized disclosure of these records.[facility] Encounter Details Date Type Department Care Team (Late Contact Info) Description 05/23/2020 Orders Only NM Transplant Surgery [address] [facility], 19th Floor [address] [place] [address] Vivi Ponce Social History Tobacco Use Types [...] [address], [address] [place] [address] Apt confirmed-EH documented as of this encounter Visit Diagnoses Diagnosis 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 [address] [place], [place] [address] PCP - General Family Medicine 01/02/18 Aubrey Crabtree III, MD [address] [facility] [address] [place] [address] Hematology and Medical Oncology 10/01/18 Jaki Nieves, PhD [address] [place], [place] [address] Genetic Counseling 11/27/18 documented as of this encounter
--- OUTSIDE RECORDS SUMMARY | 2025-08-09 10:30 | XMS_ITS | Encounter Summary ---
Author Organization [facility] Address [address] [place] [address] Care Team Providers Care Microsoft Access Developer Name Role Phone Juan Laguerre MD Primary Care Provider [phone] Bro AWAN MD, Aubrey Lane Unavailable [phone] Jaki Nieves PhD Unavailable [phone] Source Comments In the event that this is information that is protected by federal Confidentiality of Substance User Disorder Patient Records, 42 CFR Part 2 prohibits the unauthorized disclosure of these records.[facility] Encounter Details Date Type Department Care Team (Late Contact Info) Description 08/17/2019 Orders Only NM Transplant Surgery [address] [facility], 19th [address] [place] [address] Cara Cook RN Social History Tobacco Use [...] [address], [address] [place] [address] Apt confirmed-EH documented as of this encounter Visit Diagnoses Diagnosis 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) Liver replaced by transplant Kidney replaced by transplant documented in this encounter Additional Health Concerns Infection Onset Date Last Indicated Resolved Time COVID-19 Comment:Tested + on 09/0109/01/2020 09/05/2020 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 [address] [place], [place] [address] PCP - General Family Medicine 01/02/18 Aubrey Crabtree III, MD [address] [facility] [address] [place] [address] Hematology and Medical Oncology 10/01/18 Jaki Nieves, PhD [address] [place] [address] Genetic Counseling 11/27/18 documented as of this encounter
--- OUTSIDE RECORDS SUMMARY | 2025-08-09 10:30 | XMS_ITS | Encounter Summary ---
Author Organization [facility] Address [address] [place] [address] Care Team Providers Care Third Loader Name Role Phone Juan Laguerre MD Primary Care Provider [phone] Bro AWAN MD, Aubrey Lane Unavailable [phone] Jaki Nieves PhD Unavailable [phone] Source Comments In the event that this is information that is protected by federal Confidentiality of Substance User Disorder Patient Records, 42 CFR Part 2 prohibits the unauthorized disclosure of these records.[facility] Encounter Details Date Type Department Care Team (Late st Contact Info) Description 11/30/2019 Orders Only NM Transplant Surgery [address] [facility], [address]th [address] [place], [place] [address] Cathleen Gallegos MD [address] [facility] [address] [address] Social History Tobacco Use Types Packs/Day Years [...] [facility], 19th Floor [address] [place] [address] Apt confirmed-EH documented as of this encounter Procedures Procedure Name Priority Date/Time Associated Diagnosis Comments BK VIRUS DNA QUANT PCR, BLOOD Routine 12/11/2019 6:48 AM ETL CONSULTANT BK VIRUS QUANT VIRAL LOAD, URINE Routine 12/11/2019 5:49 AM ETL CONSULTANT EVEROLIMUS LEVEL Routine 12/11/2019 5:49 AM ETL CONSULTANT PTH, INTACT Routine 12/11/2019 5:49 AM ETL CONSULTANT MYCOPHENOLIC ACID Routine 12/11/2019 5:4 9 AM ETL CONSULTANT VITAMIN D 25-HYDROXY Routine 12/11/2019 5:49 AM ETL CONSULTANT PROTEIN/CREAT RATIO, RANDOM URINE Routine 12/11/2019 5:49 AM ETL CONSULTANT CBC AND DIFFERENTIAL Routine 12/11/2019 5:49 AM ETL CONSULTANT PHOSPHORUS LEVEL Routine 12/11/2019 5:49 AM ETL CONSULTANT LIPID PANEL (AMA) W/LDL CALC Routine 12/11/2019 5:49 AM ETL CONSULTANT COMPREHENSIVE METABOLIC PANEL Routine 12/11/2019 5:49 AM ETL CONSULTANT documented in this encounter Results * BK Virus DNA Quant PCR, Blood (12/11/2019 6:48 AM ETL CONSULTANT) BK Virus DNA, Qn PCR - External DET EXTERNAL LAB 12/11/2019 6:48 AM ETL CONSULTANT Narrative EXTERNAL LAB - 12/18/2019 7:40 AM ETL CONSULTANT Verified by Monie Siddiqui on 12/18/2019. Cathleen Gallegos MD IMMUNOLOGY ORDERABLES Final Resu lt Performing Organization Address City/[facility]/ZIP Co de Phone Number EXTERNAL LAB * Everolimus Level (12/11/2019 5:49 AM ETL CONSULTANT) Everolimus Level - External 4.7 3-8ng/mL ng/mL EXTERNAL LAB 12/11/2019 5:49 AM ETL CONSULTANT Narrative EXTERNAL LAB - 12/15/2019 11:28 AM ETL CONSULTANT Verified by Monie Siddiqui on 12/15/2019. Cathleen Gallegos MD CHEMISTRY ORDERABLES Final Resul t Performing Organization Address [facility] Co de Phone Number EXTERNAL LAB * BK Virus Quant Viral Load, Urine (12/11/2019 5:49 AM ETL CONSULTANT) BK Quantitation Urine - External 13,100 cpy/mL EXTERNAL LAB 12/11/2019 5:49 AM ETL CONSULTANT Narrative EXTERNAL LAB - 12/15/2019 11:26 AM ETL CONSULTANT Verified by Monie Siddiqui on 12/15/2019. Cathleen Gallegos MD URINE ORDERABLES Final Result Performing Organization Address [facility] de Phone Number EXTERNAL LAB * Mycophenolic Acid (12/11/2019 5:49 AM ETL CONSULTANT) Mycophenolic Acid - External 2.8 1.0 - 3.5 ug/mL EXTERNAL LAB 12/11/2019 5:49 AM ETL CONSULTANT Narrative EXTERNAL LAB - 12/14/2019 12:20 PM ETL CONSULTANT Verified by Koki Burks on 12/14/2019. Physician Non-Staff CHEMISTRY ORDERABLES Final R esult Performing Organization Address City/[facility] Co de Phone Number EXTERNAL LAB * Vitamin D 25-Hydroxy (12/11/2019 5:49 AM ETL CONSULTANT) Vitamin D, 25-Hydroxy, Total - External 13 ng/mL EXTERNAL LAB 12/11/2019 5:49 AM ETL CONSULTANT Narrative EXTERNAL LAB - 12/12/2019 11:54 AM ETL CONSULTANT Verified by Monie Siddiqui on 12/12/2019. us Cathleen Gallegos MD CHEMISTRY ORDERABLES Final Resul t Performing Organization Address [facility] de Phone Number EXTERNAL LAB * Protein /Creatinine Ratio, Urine (12/11/2019 5:49 AM ETL CONSULTANT) Urine Creatinine, Random - External 51 mg/dL EXTERNAL LAB Protein, Urine - External 50.1 EXTERNAL LAB Prot/Creat Ratio - External 0.98 EXTERNAL LAB 12/11/2019 5:49 AM ETL CONSULTANT Narrative EXTERNAL LAB - 12/12/2019 11:54 AM ETL CONSULTANT Verified by Monie Siddiqui on 12/12/2019. us Cathleen Gallegos MD URINE ORDERABLES Final Result Performing Organization Address [facility] de Phone Number EXTERNAL LAB * (ABNORMAL) PTH,Intact (12/11/2019 5:49 AM ETL CONSULTANT) PTH, Intact - External 95(H) 14 - 72 pg/mL EXTERNAL LAB 12/11/2019 5:49 AM ETL CONSULTANT Narrative EXTERNAL LAB - 12/12/2019 11:54 AM ETL CONSULTANT Verified by Monie Siddiqui on 12/12/2019. us Cathleen Gallegos MD CHEMISTRY ORDERABLES Final Resul t Performing Organization Address [facility] de Phone Number EXTERNAL LAB * Lipid Panel(AMA) w/LDL Calculated (12/11/2019 5:49 AM ETL CONSULTANT) Cholesterol LDL Direct - External 78 <130 mg/dL EXTERNAL LAB Total Cholesterol - External 243 EXTERNAL LAB Triglycerides - External 807 EXTERNAL LAB HDL Cholesterol - External 31 EXTERNAL LAB 12/11/2019 5:49 AM ETL CONSULTANT Narrative EXTERNAL LAB - 12/12/2019 11:54 AM ETL CONSULTANT Verified by Monie Siddiqui on 12/12/2019. Cathleen Gallegos MD CHEMISTRY ORDERABLES Final Resul t EXTERNAL LAB * Phosphorus Level (12/11/2019 5:49 AM ETL CONSULTANT) Phosphorous - External 2.6 EXTERNAL LAB 12/11/2019 5:49 AM ETL CONSULTANT Narrative EXTERNAL LAB - 12/12/2019 11:54 AM ETL CONSULTANT Verified by Monie Siddiqui on 12/12/2019. Cathleen Gallegos MD CHEMISTRY ORDERABLES Final Resul t EXTERNAL LAB * (ABNORMAL) Comp Metabolic Panel (12/11/2019 5:49 AM ETL CONSULTANT) Sodium - External 133 133 - 145 [...] External 119 EXTERNAL LAB 12/11/2019 5:49 AM ETL CONSULTANT Narrative EXTERNAL LAB - 12/12/2019 11:54 AM ETL CONSULTANT Verified by Monie Siddiqui on 12/12/2019. Cathleen Gallegos MD CHEMISTRY ORDERABLES Final Resul t EXTERNAL LAB * (ABNORMAL) CBC with Differential (12/11/2019 5:49 AM ETL CONSULTANT) White Blood Cells - External 9.51 10(3)/mcL [...] Absolute - External 2.86 10(3)/mcL EXTERNAL LAB [place] Absolute - External 1.03(H) 0.10 - 0.80 10(3)/mcL EXTERNAL LAB - External 0.17 0.00 - 0.30 10(3)/mcL EXTERNAL LAB Basophil Absolute - External 0.15(H) 0.00 - 0 10(3)/mcL EXTERNAL LAB 12/11/2019 5:49 AM ETL CONSULTANT Narrative EXTERNAL LAB - 12/12/2019 11:54 AM ETL CONSULTANT Verified by Monie Siddiqui on 12/12/2019. us [...] on 09/0109/01/2020 09/05/2020 09/25/2020 12: 31 AM ETL CONSULTANT documented as of this encounter Care Teams Third Loader Relationship Specialty Start Date End Date Juan Laguerre MD [address] [facility] [address] [place], [place] [id number] PCP - General Family Medicine 01/02/18 Aubrey Crabtree III, MD [address] [facility] [address] [place] [address] Hematology and Medical Oncology 10/01/18 Jaki Nieves, PhD [address] [facility] [address] [place] [address] Genetic Counseling 11/27/18 documented as of this encounter
--- OUTSIDE RECORDS SUMMARY | 2025-08-09 10:30 | XMS_ITS | Encounter Summary ---
Author Organization [facility] Address [address] [place] [address] Care Team Providers Care Healthcare Project Manager Name Role Phone Juan Laguerre MD Primary Care Provider [phone] Bro AWAN MD, Aubrey Lane Unavailable [phone] Jaki Nieves PhD Unavailable [phone] Source Comments In the event that this is information that is protected by federal Confidentiality of Substance User Disorder Patient Records, 42 CFR Part 2 prohibits the unauthorized disclosure of these records.[facility] Encounter Details Date Type Department Care Team (Late Contact Info) Description 11/23/2019 Orders Only NM Transplant Surgery [address] [facility], 19th Floor [address] [place] [address] Renetta Henao Social History Tobacco Use Types [facility] [address] [place] [address] Apt confirmed-EH documented as of this encounter [...] on 09/0109/01/2020 09/05/2020 09/25/2020 12: 31 AM 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
--- OUTSIDE RECORDS SUMMARY | 2025-08-09 10:30 | XMS_ITS | Encounter Summary ---
Author Organization [facility] Address [address] [place] [address] Care Team Providers Care Principal Associate Name Role Phone Juan Laguerre MD Primary Care Provider [phone] Bro AWAN MD, Aubrey Lane Unavailable [phone] Jaki Nieves PhD Unavailable [phone] Source Comments In the event that this is information that is protected by federal Confidentiality of Substance User Disorder Patient Records, 42 CFR Part 2 prohibits the unauthorized disclosure of these records.[facility] Encounter Details Date Type Department Care Team (Late Contact Info) Description 07/18/2020 Orders Only NM Transplant Surgery [address] [facility], 19th [address] [place] [address] Vivi Ponce Social History Tobacco Use Types [...] [address], [address] [place] [address] Apt confirmed-EH documented as of this encounter [...] Absolute - External 3.49(H) 10(3)/mcL EXTERNAL LAB [place] Absolute - External 1.14(H) 0.10 - 0.80 10(3)/mcL EXTERNAL LAB - External 0.30 0.00 - 0.30 10(3)/mcL EXTERNAL LAB Basophil Absolute - External 0.13(H) 0.00 - 0 10(3)/mcL EXTERNAL LAB Basophils - External 1.3 EXTERNAL LAB 07/21/2020 6:16 AM CDT Narrative EXTERNAL LAB - 07/21/2020 12:48 PM CDT Verified by Koki Burks on 07/21/2020. Physician Non-Staff HEMATOLOGY ORDERABLES Final Result Performing Organization Address [facility]/ZIP Co de Phone Number EXTERNAL LAB * BK Virus DNA Quant PCR, Blood (07/21/2020 5:51 AM CDT) BK Virus DNA, Qn PCR - External DET EXTERNAL LAB 07/21/2020 5:51 AM CDT Narrative EXTERNAL LAB - 07/27/2020 7:26 AM CDT Verified by Monie Siddiqui on 07/27/2020. Edwin Del Toro MD IMMUNOLOGY ORDERABLES Joana l Result Performing Organization Address [facility]/ZIP Co de Phone Number EXTERNAL LAB * Mycophenolic Acid (07/21/2020 5:51 AM CDT) Mycophenolic Acid - External 3.4 1.0 - 3.5 ug/mL EXTERNAL LAB 07/21/2020 5:51 AM CDT Narrative EXTERNAL LAB - 07/26/2020 1:04 PM CDT Verified by Monie Siddiqui on 07/26/2020. Edwin Del Toro MD CHEMISTRY ORDERABLES Final Result Performing Organization Address City/[facility]/ZIP Co de Phone Number EXTERNAL LAB * Vitamin D 25-Hydroxy (07/21/2020 5:51 AM CDT) Vitamin D, 25-Hydroxy, Total - External 30 ng/mL EXTERNAL LAB 07/21/2020 5:51 AM CDT Narrative EXTERNAL LAB - 07/21/2020 12:48 PM CDT Verified by Koki Burks on 07/21/2020. 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
--- OUTSIDE RECORDS SUMMARY | 2025-08-09 10:30 | XMS_ITS | Encounter Summary ---
Author Organization [facility] Address [address] [place] [address] Care Team Providers Care Aircraft Air Conditioning Mechanic Name Role Phone Juan Laguerre MD Primary Care Provider [phone] Bro AWAN MD, Aubrey Lane Unavailable [phone] Jaki Nieves PhD Unavailable [phone] Source Comments In the event that this is information that is protected by federal Confidentiality of Substance User Disorder Patient Records, 42 CFR Part 2 prohibits the unauthorized disclosure of these records.[facility] Encounter Details Date Type Department Care Team (Late Contact Info) Description 01/11/2025 Orders Only NM Transplant Surgery [address] [facility], 19th [address] [place] [address] Joshua Bee RN Social History Tobacco Use [...] [facility], 19th Floor [address] [place], [place] [address] Apt confirmed-EH documented as of this encounter Visit Diagnoses Diagnosis 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 transplant Adenocarcinoma of pancreas (CMS-HCC) Malignant neoplasm of pancreas, part unspecified documented in this encounter Care Teams Aircraft Air Conditioning Mechanic Relationship Specialty Start Date End Date Juan Laguerre MD [address] [facility] [address] [place] [id number] PCP - General Family Medicine 01/02/18 Aubrey Crabtree III, MD [address] [facility] [address] [place] [address] Hematology and Medical Oncology 10/01/18 Jaki Nieves, PhD [address] [facility] [address] [place] [address] Genetic Counseling 11/27/18 documented as of this encounter
--- OUTSIDE RECORDS SUMMARY | 2025-08-09 10:30 | XMS_ITS | Encounter Summary ---
Author Organization [facility] Address [address] [place] [address] Care Team Providers Care Rug Dyer Name Role Phone Juan Laguerre MD Primary Care Provider [phone] Bro AWAN MD, Aubrey Lane Unavailable [phone] Jaki Nieves PhD Unavailable [phone] Source Comments In the event that this is information that is protected by federal Confidentiality of Substance User Disorder Patient Records, 42 CFR Part 2 prohibits the unauthorized disclosure of these records.[facility] Encounter Details Date Type Department Care Team (Late st Contact Info) Description 01/25/2025 Orders Only NM Transplant Surgery [address] [facility], 19th [address] [place], [place] [address] Cathleen Gallegos MD [address] [facility] [address] [address] Social History Tobacco Use Types Packs/Day Years [...] [address] [facility], 19th [address] [place], [place] [address] Apt confirmed-EH documented as of this encounter Visit Diagnoses Diagnosis Kidney replaced by transplant documented in this encounter Care Teams Rug Dyer Relationship Specialty Start Date End Date Juan Laguerre MD [address] [facility] [address] [place] [address] PCP - General Family Medicine 01/02/18 Aubrey Crabtree III, MD [address] [facility] [address] [place] [address] Hematology and Medical Oncology 10/01/18 Jaki Nieves, PhD [address] [facility] [address] [place], [place] [address] Genetic Counseling 11/27/18 documented as of this encounter
--- OUTSIDE RECORDS SUMMARY | 2025-08-09 10:31 | XMS_ITS | Encounter Summary ---
Author Organization [facility] Address [address] [place] [address] Care Team Providers Care Mortgage Underwriter Name Role Phone Juan Laguerre MD Primary Care Provider [phone] Bro AWAN MD, Aubrey Lane Unavailable [phone] Jaki Nieves PhD Unavailable [phone] Source Comments In the event that this is information that is protected by federal Confidentiality of Substance User Disorder Patient Records, 42 CFR Part 2 prohibits the unauthorized disclosure of these records.[facility] Encounter Details Date Type Department Care Team (Late Contact Info) Description 01/02/2021 Orders Only NM Transplant Surgery [address] [facility], 19th Floor [address] [place] [address] Linette Almaguer RN Social History Tobacco Use [...] [address], [address] [place] [address] Apt confirmed-EH documented as of this encounter Procedures Procedure Name Priority Date/Time Associated Diagnosis Comments PTH, INTACT Routine 01/07/2021 6:48 AM PRINTING EQUIPMENT MECHANIC APPRENTICE VITAMIN D 25-HYDROXY Routine 01/07/2021 6:48 AM PRINTING EQUIPMENT MECHANIC APPRENTICE LIPID PANEL (AMA) W/LDL CALC Routine 01/07/2021 6:48 AM PRINTING EQUIPMENT MECHANIC APPRENTICE documented in this encounter Results * Vitamin D 25-Hydroxy (01/07/2021 6:48 AM PRINTING EQUIPMENT MECHANIC APPRENTICE) Vitamin D, 25-Hydroxy, Total - External 25 ng/mL EXTERNAL LAB 01/07/2021 6:48 AM PRINTING EQUIPMENT MECHANIC APPRENTICE Narrative EXTERNAL LAB - 01/07/2021 12:33 PM PRINTING EQUIPMENT MECHANIC APPRENTICE Verified by Monie Siddiqui on 01/07/2021. us Cathleen Gallegos MD CHEMISTRY ORDERABLES Final Resul t EXTERNAL LAB * (ABNORMAL) PTH,Intact (01/07/2021 6:48 AM PRINTING EQUIPMENT MECHANIC APPRENTICE) PTH, Intact - External 95(H) 14 - 72 pg/mL EXTERNAL LAB 01/07/2021 6:48 AM PRINTING EQUIPMENT MECHANIC APPRENTICE Narrative EXTERNAL LAB - 01/07/2021 12:33 PM PRINTING EQUIPMENT MECHANIC APPRENTICE Verified by Monie Siddiqui on 01/07/2021. us Cathleen Gallegos MD CHEMISTRY ORDERABLES Final Resul t EXTERNAL LAB * (ABNORMAL) Lipid Panel(AMA) w/LDL Calculated (01/07/2021 6:48 AM PRINTING EQUIPMENT MECHANIC APPRENTICE) Total Cholesterol - External 249(H) 0 - 199 mg/dL EXTERNAL LAB HDL Cholesterol - External 39(L) 40 - 100 mg/dL EXTERNAL LAB Cholesterol LDL Direct - External 136(H) <130 mg/dL EXTERNAL LAB Triglycerides - External 371 EXTERNAL LAB 01/07/2021 6:48 AM PRINTING EQUIPMENT MECHANIC APPRENTICE Narrative EXTERNAL LAB - 01/07/2021 12:33 PM PRINTING EQUIPMENT MECHANIC APPRENTICE Verified by Monie Siddiqui on 01/07/2021. 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 [address] [place] [phone] Hematology and Medical Oncology 10/01/18 Jaki Nieves, PhD [address] [facility] [address] [place] [address] Genetic Counseling 11/27/18 documented as of this encounter
--- OUTSIDE RECORDS SUMMARY | 2025-08-09 10:31 | XMS_ITS | Encounter Summary ---
Author Organization [facility] Address [address] [place] [address] Care Team Providers Care Citizenship Instructor Name Role Phone Juan Laguerre MD Primary Care Provider [phone] Bro AWAN MD, Aubrey Lane Unavailable [phone] Jaki Nieves PhD Unavailable [phone] Source Comments In the event that this is information that is protected by federal Confidentiality of Substance User Disorder Patient Records, 42 CFR Part 2 prohibits the unauthorized disclosure of these records.[facility] Encounter Details Date Type Department Care Team (Late Contact Info) Description 05/15/2021 Orders Only NM Transplant Surgery [address] [facility], 19th [address] [place] [address] Linette Almaguer RN Social History Tobacco Use [...] [address] [facility], 19th Floor [address] [place] [address] Apt confirmed-EH documented as of this encounter Visit Diagnoses Diagnosis 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
--- OUTSIDE RECORDS SUMMARY | 2025-08-09 10:31 | XMS_ITS | Encounter Summary ---
Author Organization [facility] Address [address] [place] [address] Care Team Providers Care Data Integration Analyst Name Role Phone Juan Laguerre MD Primary Care Provider [phone] Bro AWAN MD, Aubrey Lane Unavailable [phone] Jaki Nieves PhD Unavailable [phone] Source Comments In the event that this is information that is protected by federal Confidentiality of Substance User Disorder Patient Records, 42 CFR Part 2 prohibits the unauthorized disclosure of these records.[facility] Encounter Details Date Type Department Care Team (Late Contact Info) Description 11/07/2020 Orders Only NM Transplant Surgery [address] [facility], 19th [address] [place] [address] Linette Almaguer RN Social History Tobacco Use [...] Visit NM Transplant Surgery [address] [facility], 19[address] [place] [address] Apt confirmed-EH documented as of this encounter Visit Diagnoses Diagnosis 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
--- OUTSIDE RECORDS SUMMARY | 2025-08-09 10:31 | XMS_ITS | Encounter Summary ---
Author Organization [facility] Address [address] [place] [address] Care Team Providers Care Bleach Range Operator Name Role Phone Juan Laguerre MD Primary Care Provider [phone] Bro AWAN MD, Aubrey Lane Unavailable [phone] Jaki Nieves PhD Unavailable [phone] Source Comments In the event that this is information that is protected by federal Confidentiality of Substance User Disorder Patient Records, 42 CFR Part 2 prohibits the unauthorized disclosure of these records.[facility] Encounter Details Date Type Department Care Team (Late Contact Info) Description 09/12/2020 Orders Only NM Transplant Surgery [address] [facility] [place] [facility], 19th [address] [place] [address] Vivi Ponce Social History Tobacco Use Types [...] [address], [address] [place] [address] Apt confirmed-EH documented as of this encounter Visit Diagnoses Diagnosis 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 transplant documented in this encounter Additional Health Concerns Infection Onset Date Last Indicated Resolved Time COVID-19 Comment:Tested + on 09/0109/01/2020 09/05/2020 09/25/2020 12: 31 AM LACE WINDER documented as of this encounter Care Teams Bleach Range Operator Relationship Specialty Start Date End Date Juan Laguerre MD [address] [facility] [address] [place], [place] [phone] PCP - General Family Medicine 01/02/18 Aubrey Crabtree III, MD [address] [facility] [address] [place] [address] Hematology and Medical Oncology 10/01/18 Jaki Nieves, PhD [address] [place], [place] [address] Genetic Counseling 11/27/18 documented as of this encounter
--- OUTSIDE RECORDS SUMMARY | 2025-08-09 10:31 | XMS_ITS | Encounter Summary ---
Author Organization [facility] Address [address] [place] [address] Care Team Providers Care Monument Mason Name Role Phone Juan Laguerre MD Primary Care Provider [phone] Bro AWAN MD, Aubrey Lane Unavailable [phone] Jaki Nieves PhD Unavailable [phone] Source Comments In the event that this is information that is protected by federal Confidentiality of Substance User Disorder Patient Records, 42 CFR Part 2 prohibits the unauthorized disclosure of these records.[facility] Encounter Details Date Type Department Care Team (Late st Contact Info) Description 07/30/2022 Orders Only NM Transplant Surgery [address] [facility], 19th Floor [address] [place], [place] [address] Sandra Joiner, CHAR FILTER OPERATOR, MEDICAL MANAGER [address] [facility] [address] [place] [address] Social History Tobacco Use Types Packs/Day Years [...] [facility], [address] [place] [address] Apt confirmed-EH documented as of this encounter Visit Diagnoses Diagnosis 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) Liver replaced by transplant Kidney replaced by transplant documented in this encounter Care Teams Monument Mason Relationship Specialty Start Date End Date Juan Laguerre MD [address] [facility] [address] [place], [place] [id number] PCP - General Family Medicine 01/02/18 Aubrey Crabtree III, MD [address] [facility] [address] [place] [address] Hematology and Medical Oncology 10/01/18 Jaki Nieves, PhD [address] [facility] [address] [place], [place] [address] Genetic Counseling 11/27/18 documented as of this encounter
--- OUTSIDE RECORDS SUMMARY | 2025-08-09 10:31 | XMS_ITS | Encounter Summary ---
Author Organization [facility] Address [address] [place] [address] Care Team Providers Care Physical Therapist Assistant Name Role Phone Juan Laguerre MD Primary Care Provider [phone] Bro AWAN MD, Aubrey Lane Unavailable [phone] Jaki Nieves PhD Unavailable [phone] Source Comments In the event that this is information that is protected by federal Confidentiality of Substance User Disorder Patient Records, 42 CFR Part 2 prohibits the unauthorized disclosure of these records.[facility] Encounter Details Date Type Department Care Team (Late Contact Info) Description 03/27/2021 Orders Only NM Transplant Surgery [address] [facility], 19th [address] [place] [address] Linette Almaguer RN Social History Tobacco Use [...] Department Care Team ([facility] Contact Info) Description 07/15/2026 1:00 PM CDT Office Visit [place] Transplant Surgery [address], [address] [place] [address] Apt confirmed-EH documented as of this encounter Procedures Procedure Name Priority Date/Time Associated Diagnosis Comments URINALYSIS WITH MICROSCOPIC Routine 05/31/2021 6:41 AM CDT documented in this encounter Results * (ABNORMAL) Urinalysis with microscopic (05/31/2021 6:41 AM CDT) Specific [place], Urine - External 1.010 1.003 - 1.035 [...] replaced by transplant Liver replaced by transplant ([facility]HCC) Liver replaced by transplant documented in this encounter Care Teams Physical Therapist Assistant Relationship Specialty Start Date End Date Juan Laguerre MD [address] [facility] [address] [place] [address] PCP - General Family Medicine 01/02/18 Aubrey Crabtree III, MD [address] [facility] [address] [address] Hematology and Medical Oncology 10/01/18 Jaki Nieves, PhD [address] [facility] [address] [place] [address] Genetic Counseling 11/27/18 documented as of this encounter
--- OUTSIDE RECORDS SUMMARY | 2025-08-09 10:31 | XMS_ITS | Encounter Summary ---
Author Organization [facility] Address [address] [place] [address] Care Team Providers Care Board Certified Family Physician Name Role Phone Juan Laguerre MD Primary Care Provider [phone] Bro AWNA MD, Aubrey Lane Unavailable [phone] aJki Nieves PhD Unavailable [phone] Source Comments In the event that this is information that is protected by federal Confidentiality of Substance User Disorder Patient Records, 42 CFR Part 2 prohibits the unauthorized disclosure of these records.[facility] Encounter Details Date Type Department Care Team (Late st Contact Info) Description 11/20/2021 Orders Only NM Transplant Surgery [address] [facility], [address] [place], [place] [address] Sandra Joiner, GIS DEVELOPER, VERTICAL CONTOUR BAND SAW OPERATOR [address] [facility] [address] [place] [address] Social History Tobacco Use Types Packs/Day Years [...] [address], [address] [place] [address] Apt confirmed-EH documented as of this encounter Procedures Procedure Name Priority Date/Time Associated Diagnosis Comments BK VIRUS QUANT VIRAL LOAD, URINE Routine 11/25/2021 6:38 AM REGIONAL FORESTER EVEROLIMUS LEVEL Routine 11/25/2021 6:38 AM REGIONAL FORESTER EVEROLIMUS LEVEL Routine 11/25/2021 6:38 AM REGIONAL FORESTER URINALYSIS WITH MICROSCOPIC Routine 11/25/2021 6:38 AM REGIONAL FORESTER documented in this encounter Results * BK Virus Quant Viral Load, Urine (11/25/2021 6:38 AM REGIONAL FORESTER) BK Quantitation Urine - External 4,510 EXTERNAL LAB 11/25/2021 6:38 AM REGIONAL FORESTER Narrative EXTERNAL LAB - 11/29/2021 11:23 AM REGIONAL FORESTER Verified by Monie Siddiqui on 11/29/2021. Edwin Del Toro MD URINE ORDERABLES Final Res ult EXTERNAL LAB * Everolimus Level (11/25/2021 6:38 AM REGIONAL FORESTER) Everolimus Level - External 5.6 EXTERNAL LAB 11/25/2021 6:38 AM REGIONAL FORESTER Narrative EXTERNAL LAB - 11/28/2021 11:11 AM REGIONAL FORESTER Verified by Monie Siddiqui on 11/28/2021. Edwin Del Toro MD CHEMISTRY ORDERABLES Final Result EXTERNAL LAB * Everolimus Level (11/25/2021 6:38 AM REGIONAL FORESTER) Blood 11/25/2021 6:38 AM REGIONAL FORESTER Narrative EXTERNAL LAB - 11/27/2021 12:12 PM REGIONAL FORESTER Verified by Koki Burks on 11/27/2021 Corrected df us Edwin Del Toro MD CHEMISTRY ORDERABLES Edite d Result - Final Performing Organization Address City/[facility]/ZIP Co de Phone Number EXTERNAL LAB * (ABNORMAL) Urinalysis with microscopic (11/25/2021 6:38 AM REGIONAL FORESTER) Specific [place], Urine - External 1.010 1.003 - 1.035 [...] 0-5, /hpf EXTERNAL LAB 11/25/2021 6:38 AM REGIONAL FORESTER Narrative EXTERNAL LAB - 11/26/2021 12:32 PM REGIONAL FORESTER Verified by Monie Siddiqui on 11/26/2021. us Edwin Del Toro MD URINE ORDERABLES Final Res ult Performing Organization Address City/[facility]/ZIP Co de Phone Number EXTERNAL LAB documented in this encounter Visit Diagnoses Diagnosis 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) Liver replaced by transplant Kidney replaced by transplant documented in this encounter Care Teams Board Certified Family Physician Relationship Specialty Start Date End Date Juan Laguerre MD [address] [place] [address] PCP - General Family Medicine 01/02/18 Aubrey Crabtree III, MD [address] [place] [address] [address], [place] [address] Hematology and Medical Oncology 10/01/18 Jaki Nieves, PhD [address] [facility] [address] [place] [address] Genetic Counseling 11/27/18 documented as of this encounter
--- OUTSIDE RECORDS SUMMARY | 2025-08-09 10:31 | XMS_ITS | Encounter Summary ---
Author Organization [facility] Address [address] [place] [address] Care Team Providers Care Industrial Furnace Fabricator Name Role Phone Juan Laguerre MD Primary Care Provider [phone] Bro AWAN MD, Aubrey Lane Unavailable [phone] Jaki Nieves PhD Unavailable [phone] Source Comments In the event that this is information that is protected by federal Confidentiality of Substance User Disorder Patient Records, 42 CFR Part 2 prohibits the unauthorized disclosure of these records.[facility] Encounter Details Date Type Department Care Team (Late st Contact Info) Description 12/04/2021 Orders Only NM Transplant Surgery [address] [facility], 19th [address] [place], [place] [address] Sandra Joiner, MINE ENGINEERING SUPERVISOR, PHOSPHORIC ACID SUPERVISOR [address] [facility] [address] [place] [address] Social History Tobacco Use Types Packs/Day Years [...] [facility], 19th Floor [address] [place], [place] [address] Apt confirmed-EH documented as of this encounter Visit Diagnoses Diagnosis 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) Liver replaced by transplant Kidney replaced by transplant Vitamin D deficiency documented in this encounter Care Teams Industrial Furnace Fabricator Relationship Specialty Start Date End Date Juan Laguerre MD [address] [facility] [address] [place] [id number] PCP - General Family Medicine 01/02/18 Aubrey Crabtree III, MD [address] [facility] [address] [place] [address] Hematology and Medical Oncology 10/01/18 Jaki Nieves, PhD [address] [facility] [address] [place], [place] [address] Genetic Counseling 11/27/18 documented as of this encounter
--- OUTSIDE RECORDS SUMMARY | 2025-08-09 10:31 | XMS_ITS | Encounter Summary ---
Author Organization [facility] Address [address] [place] [address] Care Team Providers Care Test Desk Operator Name Role Phone Juan Laguerre MD Primary Care Provider [phone] Bro AWAN MD, Aubrey Lane Unavailable [phone] Jaki Nieves PhD Unavailable [phone] Source Comments In the event that this is information that is protected by federal Confidentiality of Substance User Disorder Patient Records, 42 CFR Part 2 prohibits the unauthorized disclosure of these records.[facility] Encounter Details Date Type Department Care Team (Late Contact Info) Description 08/15/2020 Orders Only NM Transplant Surgery [address] [facility], 19th Floor [address] [place] [address] Vivi Ponce Social History Tobacco Use Types [...] [address], [address] [place] [address] Apt confirmed-EH documented as of this encounter Visit Diagnoses Diagnosis 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 transplant documented in this encounter Additional Health Concerns Infection Onset Date Last Indicated Resolved Time COVID-19 Comment:Tested + on 09/0109/01/2020 09/05/2020 09/25/2020 12: 31 AM CHEMICAL LABORATORY TECHNICIAN documented as of this encounter Care Teams Test Desk Operator Relationship Specialty Start Date End Date Juan Laguerre MD [address] [facility] [address] [place], [place] [address] PCP - General Family Medicine 01/02/18 Aubrey Crabtree III, MD [address] [facility] [address] [place] [address] Hematology and Medical Oncology 10/01/18 Jaki Nieves, PhD [address] [place], [place] [address] Genetic Counseling 11/27/18 documented as of this encounter
--- OUTSIDE RECORDS SUMMARY | 2025-08-09 10:31 | XMS_ITS | Encounter Summary ---
Author Organization [facility] Address [address] [place] [address] Care Team Providers Care Bobbin Inspector Name Role Phone Juan Laguerre MD Primary Care Provider [phone] Bro AWAN MD, Aubrey Lane Unavailable [phone] Jaki Nieves PhD Unavailable [phone] Source Comments In the event that this is information that is protected by federal Confidentiality of Substance User Disorder Patient Records, 42 CFR Part 2 prohibits the unauthorized disclosure of these records.[facility] Encounter Details Date Type Department Care Team (Late st Contact Info) Description 11/26/2022 Orders Only NM Transplant Surgery [address] [facility], 19th Floor [address] [place], [place] [address] Cathleen Gallegos MD [address] [facility] [address] [address] Social History Tobacco Use Types Packs/Day Years [...] Office Visit NM Transplant Surgery [address] [facility], 19th [address] [place] [address] Apt confirmed-EH documented as of this encounter Procedures Procedure Name Priority Date/Time Associated Diagnosis Comments PTH, INTACT Routine 12/18/2022 6:32 AM SALES AND SERVICE REPRESENTATIVE BK VIRUS DNA QUANT PCR, BLOOD Routine 12/18/2022 6:32 AM SALES AND SERVICE REPRESENTATIVE URINALYSIS WITH MICROSCOPIC Routine 12/18/2022 6:32 AM SALES AND SERVICE REPRESENTATIVE CBC AND DIFFERENTIAL Routine 12/18/2022 6:32 AM SALES AND SERVICE REPRESENTATIVE LIPID PANEL (AMA) W/LDL CALC Routine 12/18/2022 6:32 AM SALES AND SERVICE REPRESENTATIVE COMPREHENSIVE METABOLIC PANEL Routine 12/18/2022 6:32 AM SALES AND SERVICE REPRESENTATIVE documented in this encounter Results * BK Virus DNA Quant PCR, Blood (12/18/2022 6:32 AM SALES AND SERVICE REPRESENTATIVE) Pathologist [facility] BK Virus DNA, Qn PCR - External NOT DET EXTERNAL LAB 12/18/2022 6:32 AM SALES AND SERVICE REPRESENTATIVE Narrative EXTERNAL LAB - 12/21/2022 8:18 AM SALES AND SERVICE REPRESENTATIVE Verified by Monie Siddiqui on 12/21/2022. us Edwin Del Toro MD IMMUNOLOGY ORDERABLES Joana l Result EXTERNAL LAB * (ABNORMAL) Urinalysis with microscopic (12/18/2022 6:32 AM SALES AND SERVICE REPRESENTATIVE) Specific [place], Urine - External 1.011 1.003 - 1.035 [...] External CLEAR EXTERNAL LAB 12/18/2022 6:32 AM SALES AND SERVICE REPRESENTATIVE Narrative EXTERNAL LAB - 12/18/2022 12:37 PM SALES AND SERVICE REPRESENTATIVE Verified by Monie Siddiqui on 12/18/2022. Edwin Del Toro MD URINE ORDERABLES Final Res ult EXTERNAL LAB * (ABNORMAL) PTH, Intact (12/18/2022 6:32 AM SALES AND SERVICE REPRESENTATIVE) PTH, Intact - External 85(H) 14 - 72 pg/mL EXTERNAL LAB 12/18/2022 6:32 AM SALES AND SERVICE REPRESENTATIVE Narrative EXTERNAL LAB - 12/18/2022 12:37 PM SALES AND SERVICE REPRESENTATIVE Verified by Monie Siddiqui on 12/18/2022. Edwin Del Toro MD CHEMISTRY ORDERABLES Final Result EXTERNAL LAB * (ABNORMAL) Lipid Panel(AMA) w/LDL Calculated (12/18/2022 6:32 AM SALES AND SERVICE REPRESENTATIVE) Total Cholesterol - External 255(H) 0 - 199 mg/dL EXTERNAL LAB Triglycerides - External 436(H) 0 - 149 mg/dL EXTERNAL LAB HDL Cholesterol - External 37(L) 40 - 100 mg/dL EXTERNAL LAB Cholesterol LDL Direct - External 145(H) <130 mg/dL EXTERNAL LAB 12/18/2022 6:32 AM SALES AND SERVICE REPRESENTATIVE Narrative EXTERNAL LAB - 12/18/2022 12:37 PM SALES AND SERVICE REPRESENTATIVE Verified by Monie Siddiqui on 12/18/2022. Edwin Del Toro MD CHEMISTRY ORDERABLES Final Result Performing Organization Address [facility] de Phone Number EXTERNAL LAB * (ABNORMAL) Comprehensive Metabolic Panel (12/18/2022 6:32 AM SALES AND SERVICE REPRESENTATIVE) Pathologist [facility] Chloride - External 104 96 - 108 [...] External 49 EXTERNAL LAB 12/18/2022 6:32 AM SALES AND SERVICE REPRESENTATIVE Narrative EXTERNAL LAB - 12/18/2022 12:37 PM SALES AND SERVICE REPRESENTATIVE Verified by Monie Siddiqui on 12/18/2022. Edwin Del Toro MD CHEMISTRY ORDERABLES Final Result Performing Organization Address [facility] de Phone Number EXTERNAL LAB * (ABNORMAL) CBC with Differential (12/18/2022 6:32 AM SALES AND SERVICE REPRESENTATIVE) Pathologist [facility] White Blood Cells - External 10.50 10(3)/mcL [...] 5.16 1.40 - 7.30 cells/uL EXTERNAL LAB [place] Absolute - External 1.12(H) 0.10 - 0.80 10(3)/mcL EXTERNAL LAB - External 0.40(H) 0.00 - 0.30 10(3)/mcL EXTERNAL LAB Basophil Absolute - External 0.14(H) 0.00 - 0.10 10(3)/mcL EXTERNAL LAB Eosinophils - External 3.8 EXTERNAL LAB Monocytes - External 10.7 EXTERNAL LAB 12/18/2022 6:32 AM SALES AND SERVICE REPRESENTATIVE Narrative EXTERNAL LAB - 12/18/2022 12:37 PM SALES AND SERVICE REPRESENTATIVE Verified by Monie Siddiqui on 12/18/2022. us Edwin Del Toro MD HEMATOLOGY ORDERABLES Joana l Result EXTERNAL LAB documented in this encounter Visit Diagnoses Diagnosis Kidney transplant 01/02/2008 documented in this encounter Care Teams Bobbin Inspector Relationship Specialty Start Date End Date Juan Laguerre MD [address] [facility] [address] [place] [address] PCP - General Family Medicine 01/02/18 Aubrey Crabtree III, MD [address] [facility] [address], [place] [address] Hematology and Medical Oncology 10/01/18 Jaki Nieves, PhD [address] [facility] [address] [place] [address] Genetic Counseling 1/24/19 documented as of this encounter
--- OUTSIDE RECORDS SUMMARY | 2025-08-09 10:31 | XMS_ITS | Encounter Summary ---
Author Organization [facility] Address [address] [place] [address] Care Team Providers Care Keno Dealer Name Role Phone Juan Laguerre MD Primary Care Provider [phone] Bro AWAN MD, Aubrey Lane Unavailable [phone] Jaki Nieves PhD Unavailable [phone] Source Comments In the event that this [...] [facility], [address] [place] [address] Linette Almaguer RN Social History Tobacco Use [...] [address], [address] [place] [address] Apt confirmed-EH documented as of this encounter [...] Absolute - External 3.36(H) 10(3)/mcL EXTERNAL LAB Story Absolute - External 1.32(H) 0.10 - 0.80 [...] transplant documented in this encounter Care Teams Keno Dealer Relationship Specialty Start Date End Date Juan Laguerre MD [address] [address] PCP - General Family Medicine 01/02/18 Aubrey Crabtree III, MD [address] [address] Hematology and Medical Oncology 10/01/18 Jaki Nieves, PhD [address] [facility] [address] [place] [address] Genetic Counseling 11/27/18 documented as of this encounter
--- OUTSIDE RECORDS SUMMARY | 2025-08-09 10:31 | XMS_ITS | Encounter Summary ---
Author Organization [facility] Address [address] [place] [address] Care Team Providers Care Flare Man Name Role Phone Juan Laguerre MD Primary Care Provider [phone] Bro AWAN MD, Aubrey Lane Unavailable [phone] Jaki Nieves PhD Unavailable [phone] Source Comments In the event that this is information that is protected by federal Confidentiality of Substance User Disorder Patient Records, 42 CFR Part 2 prohibits the unauthorized disclosure of these records.[facility] Encounter Details Date Type Department Care Team (Late Contact Info) Description 09/12/2020 Orders Only NM Transplant Surgery [address] [facility], 19th [address] [place] [address] Linette Almaguer RN Social History Tobacco Use [...] [address], [address] [place] [address] Apt confirmed-EH documented as of this encounter Visit Diagnoses Diagnosis 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 transplant documented in this encounter Additional Health Concerns Infection Onset Date Last Indicated Resolved Time COVID-19 Comment:Tested + on 09/0109/01/2020 09/05/2020 09/25/2020 12: 31 AM MANUFACTURING QUALITY TECHNICIAN documented as of this encounter Care Teams Flare Man Relationship Specialty Start Date End Date Juan Laguerre MD [address] [facility] [address] [place], [place] [address] PCP - General Family Medicine 01/02/18 Aubrey Crabtree III, MD [address] [facility] [address] [place] [address] Hematology and Medical Oncology 10/01/18 Jaki Nieves, PhD [address] [place] [address] Genetic Counseling 11/27/18 documented as of this encounter
--- OUTSIDE RECORDS SUMMARY | 2025-08-09 10:31 | XMS_ITS | Encounter Summary ---
Author Organization [facility] Address [address] [place] [address] Care Team Providers Care Superintendent Drivers Name Role Phone Juan Laguerre MD Primary Care Provider [phone] Bro AWAN MD, Aubrey Lane Unavailable [phone] Jaki Nieves PhD Unavailable [phone] Source Comments In the event that this is information that is protected by federal Confidentiality of Substance User Disorder Patient Records, 42 CFR Part 2 prohibits the unauthorized disclosure of these records.[facility] Encounter Details Date Type Department Care Team (Late st Contact Info) Description 07/03/2021 Orders Only NM Transplant Surgery [address] [place] [facility], [address]th [address] [place], [place] [address] Sandra Joiner, RAG WILLOW OPERATOR, BASIC SCIENCES PROFESSOR [address] [place] [facility] [address] [place] [address] Social History Tobacco Use Types Packs/Day Years [...] [facility], 19th Floor [address] [place] [address] Apt confirmed-EH documented as of this encounter Visit Diagnoses Diagnosis 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
--- OUTSIDE RECORDS SUMMARY | 2025-08-09 10:31 | XMS_ITS | Encounter Summary ---
Author Organization [facility] Address [address] [place] [address] Care Team Providers Care Director Sales Training Name Role Phone Juan Laguerre MD Primary Care Provider [phone] Bro AWAN MD, Aubrey Lane Unavailable [phone] Jaki Nieves PhD Unavailable [phone] Source Comments In the event that this [...] [facility], 19th Floor [address] [place], [place] [address] Sandra Joiner, TIE PULLER, AIRCONDITIONING PLANT OPERATOR [address] [facility] [address] [place] [address] Social History Tobacco Use Types Packs/Day [...] [facility], [address]th Floor [address] [place] [address] Apt confirmed-EH documented as of this encounter Visit Diagnoses Diagnosis 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
--- OUTSIDE RECORDS SUMMARY | 2025-08-09 10:31 | XMS_ITS | Encounter Summary ---
Author Organization [facility] Address [address] [place] [address] Care Team Providers Care Parts Specialist Name Role Phone Juan Laguerre MD Primary Care Provider [phone] Bro AWAN MD, Aubrey Lane Unavailable [phone] Jaki Nieves PhD Unavailable [phone] Source Comments In the event that this is information that is protected by federal Confidentiality of Substance User Disorder Patient Records, 42 CFR Part 2 prohibits the unauthorized disclosure of these records.[facility] Encounter Details Date Type Department Care Team (Late st Contact Info) Description 08/31/2019 Orders Only NM Transplant Surgery [address] [facility], [address] [place], [place] [address] Cathleen Gallegos MD [address] [facility] [address] [address] Social History Tobacco Use Types Packs/Day Years [...] [facility] [address] [place] [address] Apt confirmed-EH documented as of this encounter [...] on 09/0109/01/2020 09/05/2020 09/25/2020 12: 31 AM LIVESTOCK NUTRITIONIST documented as of this encounter Care Teams Parts Specialist Relationship Specialty Start Date End Date Juan Laguerre MD [address] [address] PCP - General Family Medicine 01/02/18 Aubrey Crabtree III, MD [address] [address] Hematology and Medical Oncology 10/01/18 Jaki Nieves, PhD [address] [facility] [address] [place] [address] Genetic Counseling 11/27/18 documented as of this encounter
--- OUTSIDE RECORDS SUMMARY | 2025-08-09 10:31 | XMS_ITS | Encounter Summary ---
Author Organization [facility] Address [address] [place] [address] Care Team Providers Care Precision Dancer Name Role Phone Juan Laguerre MD Primary Care Provider [phone] Bro AWAN MD, Aubrey Lane Unavailable [phone] Jaki Nieves PhD Unavailable [phone] Source Comments In the event that this is information that is protected by federal Confidentiality of Substance User Disorder Patient Records, 42 CFR Part 2 prohibits the unauthorized disclosure of these records.[facility] Encounter Details Date Type Department Care Team (Late Contact Info) Description 04/24/2021 Orders Only NM Transplant Surgery [address] [facility], 19th [address] [place] [address] Linette Almaguer RN Social History Tobacco Use [...] Visit NM Transplant Surgery [address] [facility], [address] [place] [address] Apt confirmed-EH documented as of this encounter Visit Diagnoses Diagnosis 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
--- OUTSIDE RECORDS SUMMARY | 2025-08-09 10:31 | XMS_ITS | Encounter Summary ---
Author Organization [facility] Address [address] [place] [address] Care Team Providers Care Vb Net Programmer Name Role Phone Juan Laguerre MD Primary Care Provider [phone] Bro AWAN MD, Aubrey Lane Unavailable [phone] Jaki Nieves PhD Unavailable [phone] Source Comments In the event that this is information that is protected by federal Confidentiality of Substance User Disorder Patient Records, 42 CFR Part 2 prohibits the unauthorized disclosure of these records.[facility] Encounter Details Date Type Department Care Team (Late Contact Info) Description 02/13/2021 Orders Only NM Transplant Surgery [address] [facility], 19th Floor [address] [place] [address] Linette Almaguer RN Social History Tobacco Use [...] [facility], 19th Floor [address] [place], [place] [address] Apt confirmed-EH documented as of this encounter Visit Diagnoses Diagnosis Lipid disorder Unspecified disorder of lipoid metabolism 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
--- OUTSIDE RECORDS SUMMARY | 2025-08-09 10:31 | XMS_ITS | Encounter Summary ---
Author Organization [facility] Address [address] [place] [address] Care Team Providers Care Clean Up Supervisor Name Role Phone Juan Laguerre MD Primary Care Provider [phone] Bro AWAN MD, Aubrey Lane Unavailable [phone] Jaki Nieves PhD Unavailable [phone] Source Comments In the event that this is information that is protected by federal Confidentiality of Substance User Disorder Patient Records, 42 CFR Part 2 prohibits the unauthorized disclosure of these records.[facility] Encounter Details Date Type Department Care Team (Late Contact Info) Description 11/14/2020 Orders Only NM Transplant Surgery [address] [facility], 19th Floor [address] [place] [address] Linette Almaguer RN Social History Tobacco Use [...] Visit NM Transplant Surgery [address] [facility], 19th [address] [place] [address] Apt confirmed-EH documented as of this encounter Procedures Procedure Name Priority Date/Time Associated Diagnosis Comments LIPID PANEL (AMA) W/LDL CALC Routine 11/11/2020 1:26 PM DYE AND CHEMICAL COORDINATOR documented in this encounter Results * (ABNORMAL) Lipid Panel(AMA) w/LDL Calculated (11/11/2020 1:26 PM DYE AND CHEMICAL COORDINATOR) Total Cholesterol - External 261(H) 0 - 200 mg/dL EXTERNAL LAB Triglycerides - External 369(H) 0 - 150 mg/dL EXTERNAL LAB HDL Cholesterol - External 40 23 - 92 mg/dL EXTERNAL LAB Cholesterol LDL Direct - External 147(H) 0 - 130 mg/dL EXTERNAL LAB 11/11/2020 1:26 PM DYE AND CHEMICAL COORDINATOR Narrative EXTERNAL LAB - 11/14/2020 9:28 AM DYE AND CHEMICAL COORDINATOR Verified by Koki Burks on 11/14/2020. 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
--- OUTSIDE RECORDS SUMMARY | 2025-08-09 10:31 | XMS_ITS | Encounter Summary ---
Author Organization [facility] Address [address] [place] [address] Care Team Providers Care Air Lift Operator Name Role Phone Juan Laguerre MD Primary Care Provider [phone] Bro AWAN MD, Aubrey Lane Unavailable [phone] Jaki Nieves PhD Unavailable [phone] Source Comments In the event that this is information that is protected by federal Confidentiality of Substance User Disorder Patient Records, 42 CFR Part 2 prohibits the unauthorized disclosure of these records.[facility] Reason for Visit * Reason Comments Medications Refill Encounter Details Date Type Department Care Team (Late st Contact Info) Description 04/17/2021 Refill NM Transplant Surgery [address] [facility], 19th [address] [place] [address] Cathleen Gallegos MD [address] [facility] [address], [place] [address] Medications Refill Social History Tobacco Use Types [...] [facility], 19th Floor [address] [place], [place] [id number] Apt confirmed-EH documented as of this encounter Visit Diagnoses Not on filedocumented in this encounter Care Teams Air Lift Operator Relationship Specialty Start Date End Date Juan Laguerre MD [address] [facility] [address] [place] [address] PCP - General Family Medicine 01/02/18 Aubrey Crabtree III, MD [address] [facility] [address] [place] [address] Hematology and Medical Oncology 10/01/18 Jaki Nieves, PhD [address] [facility] [address] [place], [place] [address] Genetic Counseling 11/27/18 documented as of this encounter
--- OUTSIDE RECORDS SUMMARY | 2025-08-09 10:31 | XMS_ITS | Encounter Summary ---
Author Organization [facility] Address [address] [place] [address] Care Team Providers Care Superintendent House Name Role Phone Juan Laguerre MD Primary Care Provider [phone] Bro AWAN MD, Aubrey Lane Unavailable [phone] Jaki Nieves PhD Unavailable [phone] Source Comments In the event that this [...] [facility], 19th Floor [address] [place], [place] [address] Sandra Joiner, ASPHALT BLENDER, FILLING AND STAPLING MACHINE OPERATOR [address] [facility] [address] [place] [address] Social History Tobacco Use Types Packs/Day Years [...] [address] , [address] [place] [address] Apt confirmed-EH documented as of this encounter Procedures Procedure Name Priority Date/Time Associated Diagnosis Comments PHOSPHORUS LEVEL Routine 11/15/2022 9:54 AM PELT SHEARER CBC AND DIFFERENTIAL Routine 09/11/2022 6:10 AM PELT SHEARER documented in this encounter Results * Phosphorus Level (11/15/2022 9:54 AM PELT SHEARER) Phosphorous - External 2.8 2.6 - 4.5 mg/dL EXTERNAL LAB 11/15/2022 9:54 AM PELT SHEARER Narrative EXTERNAL LAB - 11/15/2022 1:02 PM PELT SHEARER Verified by Monie Siddiqui on 11/15/2022. us Edwin Del Toro MD CHEMISTRY ORDERABLES Final Result EXTERNAL LAB * (ABNORMAL) CBC with Differential (09/11/2022 6:10 AM PELT SHEARER) Neutrophils - External 46.6 % EXTERNAL LAB Lymphocytes - External 38.1 % EXTERNAL LAB Monocytes - External 12.1 % EXTERNAL LAB Eosinophils - External 1.8 % EXTERNAL LAB Basophils - External 1.1 % EXTERNAL LAB Neutrophils Abs (cells/uL) - External 4.05 cells/uL EXTERNAL LAB Lymph Absolute - External 3.32(H) 10(3)/mcL EXTERNAL LAB [place] Absolute - External 1.05(H) 10(3)/mcL EXTERNAL LAB - External 0.16 10(3)/mcL EXTERNAL LAB Basophil Absolute - External 0.10 10(3)/mcL EXTERNAL LAB 09/11/2022 6:10 AM PELT SHEARER Narrative EXTERNAL LAB - 09/11/2022 1:27 PM PELT SHEARER Verified by Monie Siddiqui on 09/11/2022. 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
--- OUTSIDE RECORDS SUMMARY | 2025-08-09 10:31 | XMS_ITS | Encounter Summary ---
Author Organization [facility] Address [address] [place] [address] Care Team Providers Care Predatory Animal Hunter Name Role Phone Juan Laguerre MD Primary Care Provider [phone] Bro AWAN MD, Aubrey Lane Unavailable [phone] Jaki Nieves PhD Unavailable [phone] Source Comments In the event that this [...] [facility], [address] Floor [address] [place], [place] [address] Sandra Joiner, WET AND DRY SUGAR BIN OPERATOR, RE EXAMINER [address] [facility] [address] [place] [address] Social History Tobacco Use Types Packs/Day Years [...] [address] , [address] [place] [address] Apt confirmed-EH documented as of this encounter [...] IMMUNOLOGY ORDERABLES Final Result Performing Organization Address [facility] de Phone Number EXTERNAL LAB * BK Virus Quant Viral Load, Urine (07/14/2022 6:36 AM CDT) Pathologist [facility] BK Quantitation Urine - External 59,200 EXTERNAL LAB 07/14/2022 6:36 AM CDT Narrative EXTERNAL LAB - 07/18/2022 5:25 AM CDT Verified by Koki Burks on 07/18/2022. Edwin Del Toro MD URINE ORDERABLES Final Res ult Performing Organization Address [facility] de Phone Number EXTERNAL LAB * Everolimus Level (07/14/2022 6:36 AM CDT) Pathologist [facility] Everolimus Level - External 6.2 EXTERNAL LAB 07/14/2022 6:36 AM CDT Narrative EXTERNAL LAB - 07/16/2022 1:15 PM CDT Verified by Koki Burks on 07/16/2022. Physician Non-Staff CHEMISTRY ORDERABLES Final R esult Performing Organization Address [facility] de Phone Number EXTERNAL LAB * Mycophenolic Acid (07/14/2022 6:36 AM CDT) Pathologist [facility] Mycophenolic Acid - External 2.4 1.0 - 3.5 ug/mL EXTERNAL LAB 07/14/2022 6:36 AM CDT Narrative EXTERNAL LAB - 07/16/2022 1:15 PM CDT Verified by Koki Burks on 07/16/2022. Physician Non-Staff CHEMISTRY ORDERABLES Final R esult Performing Organization Address [facility] de Phone Number EXTERNAL LAB * (ABNORMAL) Urinalysis with microscopic (07/14/2022 6:36 AM CDT) Specific [place], Urine - External 1.020 EXTERNAL LAB UA [...] Final Result Performing Organization Address [facility] de Phone Number EXTERNAL LAB * (ABNORMAL) PTH, Intact (07/14/2022 6:36 AM CDT) PTH, Intact - External 191(H) 14 - 72 pg/mL EXTERNAL LAB 07/14/2022 6:3 6 AM CDT Narrative EXTERNAL LAB - 07/15/2022 6:57 AM CDT Verified by Monie Siddiqui on 07/15/2022. Edwin Del Toro MD CHEMISTRY ORDERABLES Final Result Performing Organization Address [facility] de Phone Number EXTERNAL LAB [...] Final Result Performing Organization Address [facility] de Phone Number EXTERNAL LAB [...] Absolute - External 3.86(H) 10(3)/mcL EXTERNAL LAB [place] Absolute - External 1.20(H) 10(3)/mcL EXTERNAL LAB [...] Visit Diagnoses Diagnosis Liver replaced by transplant ([facility]) Liver replaced by transplant Kidney replaced by transplant documented in this encounter Care Teams Predatory Animal Hunter Relationship Specialty Start Date End Date Juan Laguerre MD [address] [facility] [address] [place] [address] PCP - General Family Medicine 01/02/18 Aubrey Crabtree III, MD [address] [facility] [address] [place] [address] Hematology and Medical Oncology 10/01/18 Jaki Nieves, PhD [address] [facility] [address] [place] [address] Genetic Counseling 11/27/18 documented as of this encounter
--- OUTSIDE RECORDS SUMMARY | 2025-08-09 10:31 | XMS_ITS | Encounter Summary ---
Author Organization [facility] Address [address] [place] [address] Care Team Providers Care Conservation Coordinator Name Role Phone Juan Laguerre MD Primary Care Provider [phone] Bro AWAN MD, Aubrey Lane Unavailable [phone] Jaki Nieves PhD Unavailable [phone] Source Comments In the event that this is information that is protected by federal Confidentiality of Substance User Disorder Patient Records, 42 CFR Part 2 prohibits the unauthorized disclosure of these records.[facility] Encounter Details Date Type Department Care Team (Late st Contact Info) Description 10/29/2022 Orders Only NM Transplant Surgery [address] [facility], 19th [address] [place], [place] [address] Cathleen Gallegos MD [address] [facility] [address] [address] Social History Tobacco Use Types Packs/Day Years [...] [facility], 19th Floor [address] [place] [address] Apt confirmed-EH documented as of this encounter Procedures Procedure Name Priority Date/Time Associated Diagnosis Comments CBC AND DIFFERENTIAL Routine 11/15/2022 10:05 AM VENDOR SPECIALIST BK VIRUS QUANT VIRAL LOAD, URINE Routine 11/15/2022 9:54 AM VENDOR SPECIALIST EVEROLIMUS LEVEL Routine 11/15/2022 9:54 AM VENDOR SPECIALIST PTH, INTACT Routine 11/15/2022 9:54 AM VENDOR SPECIALIST MYCOPHENOLIC ACID Routine 11/15/2022 9:5 4 AM VENDOR SPECIALIST VITAMIN D 25-HYDROXY Routine 11/15/2022 9:54 AM VENDOR SPECIALIST BK VIRUS DNA QUANT PCR, BLOOD Routine 11/15/2022 9:54 AM VENDOR SPECIALIST URINALYSIS WITH MICROSCOPIC Routine 11/15/2022 9:54 AM VENDOR SPECIALIST LIPID PANEL (AMA) W/LDL CALC Routine 11/15/2022 9:54 AM VENDOR SPECIALIST COMPREHENSIVE METABOLIC PANEL Routine 11/15/2022 9:54 AM VENDOR SPECIALIST documented in this encounter Results * (ABNORMAL) CBC with Differential (11/15/2022 10:05 AM VENDOR SPECIALIST) White Blood Cells - External 10.62 10(3)/mcL [...] Absolute - External 3.16 10(3)/mcL EXTERNAL LAB [place] Absolute - External 1.05(H) 10(3)/mcL EXTERNAL LAB - External 0.12 0.00 - 0.30 10(3)/mcL EXTERNAL LAB Basophil Absolute - External 0.14(H) 0.00 - 0.10 10(3)/mcL EXTERNAL LAB Neutrophils - External 57.5 % EXTERNAL LAB Eosinophils - External 1.1 % EXTERNAL LAB Monocytes - External 9.9 % EXTERNAL LAB 11/15/2022 10:0 5 AM VENDOR SPECIALIST Narrative EXTERNAL LAB - 11/15/2022 1:02 PM VENDOR SPECIALIST Verified by Monie Siddiqui on 11/15/2022. Edwin Del Toro MD HEMATOLOGY ORDERABLES Joana l Result EXTERNAL LAB * BK Virus Quant Viral Load, Urine (11/15/2022 9:54 AM VENDOR SPECIALIST) BK Quantitation Urine - External 12,500 EXTERNAL LAB 11/15/2022 9:54 AM VENDOR SPECIALIST Narrative EXTERNAL LAB - 11/19/2022 3:55 PM VENDOR SPECIALIST Verified by Koki Burks on 11/19/2022. Physician Non-Staff URINE ORDERABLES Final Resul t EXTERNAL LAB * BK Virus DNA Quant PCR, Blood (11/15/2022 9:54 AM VENDOR SPECIALIST) BK Virus DNA, Qn PCR - External NOT DETECTED EXTERNAL LAB 11/15/2022 9:54 AM VENDOR SPECIALIST Narrative EXTERNAL LAB - 11/19/2022 3:55 PM VENDOR SPECIALIST Verified by Koki Burks on 11/19/2022. us Physician Non-Staff IMMUNOLOGY ORDERABLES Final Result EXTERNAL LAB * Everolimus Level (11/15/2022 9:54 AM VENDOR SPECIALIST) Everolimus Level - External 5.3 EXTERNAL LAB 11/15/2022 9:54 AM VENDOR SPECIALIST Narrative EXTERNAL LAB - 11/19/2022 10:26 AM VENDOR SPECIALIST Verified by Koki Burks on 11/19/2022. Edwin Del Toro MD CHEMISTRY ORDERABLES Final Result Performing Organization Address [facility] de Phone Number EXTERNAL LAB * (ABNORMAL) Mycophenolic Acid (11/15/2022 9:54 AM VENDOR SPECIALIST) Mycophenolic Acid - External 1.6(L) 10 - 35 ug/mL EXTERNAL LAB 11/15/2022 9:54 AM VENDOR SPECIALIST Narrative EXTERNAL LAB - 11/18/2022 6:41 PM VENDOR SPECIALIST Verified by Monie Siddiqui on 11/18/2022. Edwin Del Toro MD CHEMISTRY ORDERABLES Final Result Performing Organization Address [facility] Co de Phone Number EXTERNAL LAB * Vitamin D 25-Hydroxy (11/15/2022 9:54 AM VENDOR SPECIALIST) Vitamin D, 25-Hydroxy, Total - External 36 ng/mL EXTERNAL LAB 11/15/2022 9:54 AM VENDOR SPECIALIST Narrative EXTERNAL LAB - 11/15/2022 1:02 PM VENDOR SPECIALIST Verified by Monie Siddiqui on 11/15/2022. Edwin Del Toro MD CHEMISTRY ORDERABLES Final Result Performing Organization Address City/[facility]/ZIP Co de Phone Number EXTERNAL LAB * (ABNORMAL) Urinalysis with microscopic (11/15/2022 9:54 AM VENDOR SPECIALIST) Pathologist [facility] Specific [place], Urine - External 1.021 1.003 - 1.035 [...] 0-5, /hpf EXTERNAL LAB 11/15/2022 9:54 AM VENDOR SPECIALIST Narrative EXTERNAL LAB - 11/15/2022 1:02 PM VENDOR SPECIALIST Verified by Monie Siddiqui on 11/15/2022. Edwin Del Toro MD URINE ORDERABLES Final Res ult EXTERNAL LAB * (ABNORMAL) PTH, Intact (11/15/2022 9:54 AM VENDOR SPECIALIST) Pathologist [facility] PTH, Intact - External 119(H) 14 - 72 pg/mL EXTERNAL LAB 11/15/2022 9:54 AM VENDOR SPECIALIST Narrative EXTERNAL LAB - 11/15/2022 1:02 PM VENDOR SPECIALIST Verified by Monie Siddiqui on 11/15/2022. Edwin Del Toro MD CHEMISTRY ORDERABLES Final Result EXTERNAL LAB * (ABNORMAL) Lipid Panel(AMA) w/LDL Calculated (11/15/2022 9:54 AM VENDOR SPECIALIST) Pathologist [facility] Total Cholesterol - External 286(H) 0 - 199 mg/dL EXTERNAL LAB Triglycerides - External 508(H) 0 - 149 mg/dL EXTERNAL LAB HDL Cholesterol - External 40 40 - 100 mg/dL EXTERNAL LAB Cholesterol LDL Direct - External 161(H) <130 mg/dL EXTERNAL LAB 11/15/2022 9:54 AM VENDOR SPECIALIST Narrative EXTERNAL LAB - 11/15/2022 1:02 PM VENDOR SPECIALIST Verified by Monie Siddiqui on 11/15/2022. us Edwin Del Toro MD CHEMISTRY ORDERABLES Final Result EXTERNAL LAB * (ABNORMAL) Comprehensive Metabolic Panel (11/15/2022 9:54 AM VENDOR SPECIALIST) Chloride - External 103 96 - 108 [...] External 49 EXTERNAL LAB 11/15/2022 9:54 AM VENDOR SPECIALIST Narrative EXTERNAL LAB - 11/15/2022 1:02 PM VENDOR SPECIALIST Verified by Monie Siddiqui on 11/15/2022. us Edwin Del Toro MD CHEMISTRY ORDERABLES Final Result EXTERNAL LAB documented in this encounter Visit Diagnoses Diagnosis Kidney transplant 01/02/2008 documented in this encounter Care Teams Conservation Coordinator Relationship Specialty Start Date End Date Juan Laguerre MD [address] [facility] [address], [place] [address] PCP - General Family Medicine 01/02/18 Aubrey Crabtree III, MD [address] [facility] [address], [place] [address] Hematology and Medical Oncology 10/01/18 Jaki Nieves, PhD [address] [facility] [address] [place] [address] Genetic Counseling 11/27/18 documented as of this encounter
--- OUTSIDE RECORDS SUMMARY | 2025-08-09 10:31 | XMS_ITS | Encounter Summary ---
Author Organization [facility] Address [address] [place] [address] Care Team Providers Care Senior Program Analyst Name Role Phone Juan Laguerre MD Primary Care Provider [phone] Bro AWAN MD, Aubrey Lane Unavailable [phone] Jaki Nieves PhD Unavailable [phone] Source Comments In the event that this is information that is protected by federal Confidentiality of Substance User Disorder Patient Records, 42 CFR Part 2 prohibits the unauthorized disclosure of these records.[facility] Encounter Details Date Type Department Care Team (Late Contact Info) Description 10/10/2020 Orders Only NM Transplant Surgery [address] [facility], [address] [place] [address] Linette Almaguer RN Social History Tobacco Use [...] [address], [address] [place] [address] Apt confirmed-EH Pending Results Name Type Priority Associated Diagnoses Date /Time Mycophenolic Acid Lab Routine 020 12:40 PM LEHR TENDER documented as of this encounter Procedures Procedure Name Priority Date/Time Associated Diagnosis Comments MYCOPHENOLIC ACID Routine 10/11/2020 12: 40 PM LEHR TENDER URINALYSIS WITH MICROSCOPIC Routine 10/11/2020 12:40 PM LEHR TENDER 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) CBC AND DIFFERENTIAL Routine 10/11/2020 12:40 PM LEHR TENDER 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) HEPATIC FUNCTION PANEL Routine 10/11/2020 12:40 PM LEHR TENDER 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 ([facility]-H[facility]) BASIC METABOLIC PANEL Routine 10/11/2020 12:40 PM LEHR TENDER documented in this encounter Results * (ABNORMAL) Basic Metabolic Panel (10/11/2020 12:40 PM LEHR TENDER) Glucose - External 126(H) 70 - 105 [...] 30 EXTERNAL LAB 10/11/2020 12:4 0 PM LEHR TENDER Narrative EXTERNAL LAB - 10/12/2020 11:45 AM LEHR TENDER Verified by Monie Siddiqui on 10/12/2020. Cathleen Gallegos MD CHEMISTRY ORDERABLES Final Resul t Performing Organization Address [facility] de Phone Number EXTERNAL LAB * (ABNORMAL) Urinalysis with Microscopic (10/11/2020 12:40 PM LEHR TENDER) UA Color - External DK YELLOW(A) Yellow EXTERNAL LAB UA Appearance - External CLEAR Clear EXTERNAL LAB UA Glucose - External 1+ NEG mg/dL EXTERNAL LAB UA Bilirubin - External NEG NEG mg/dL EXTERNAL LAB UA Ketones - External Trace(H) NEG mg/dL EXTERNAL LAB Specific [place], Urine - External 1.020 EXTERNAL LAB UA [...] CLEAN CATCH / Unknown 10/11/2020 12:40 PM LEHR TENDER Narrative EXTERNAL LAB - 10/12/2020 11:45 AM LEHR TENDER Verified by Monie Siddiqui on 10/12/2020. Cathleen Gallegos MD URINE ORDERABLES Final Result Performing Organization Address [facility] de Phone Number EXTERNAL LAB * (ABNORMAL) CBC with Differential (10/11/2020 12:40 PM LEHR TENDER) White Blood Cells - External 10.4(H) 4.0 [...] Absolute - External 3,933 cells/uL EXTERNAL LAB Cloud Absolute - External 1,449(H) cells/uL EXTERNAL LAB [...] VEIN SPECIMEN / Unknown 10/11/2020 12:40 PM LEHR TENDER Narrative EXTERNAL LAB - 10/12/2020 11:45 AM LEHR TENDER Verified by Monie Siddiqui on 10/12/2020. Cathleen Gallegos MD HEMATOLOGY ORDERABLES Final Resu lt EXTERNAL LAB * (ABNORMAL) Hepatic function panel (10/11/2020 12:40 PM LEHR TENDER) Total Bilirubin - External 0.5 0.3 - [...] VEIN SPECIMEN / Unknown 10/11/2020 12:40 PM LEHR TENDER Narrative EXTERNAL LAB - 10/12/2020 11:45 AM LEHR TENDER Verified by Monie Siddiqui on 10/12/2020. Cathleen Gallegos MD CHEMISTRY ORDERABLES Final Resul t EXTERNAL LAB documented in this encounter Visit Diagnoses Diagnosis 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 transplant documented in this encounter Care Teams Senior Program Analyst Relationship Specialty Start Date End Date Juan Laguerre MD [address] [facility] [address] [place] [address] PCP - General Family Medicine 01/02/18 Aubrey Crabtree III, MD [address] [facility] [address] [place] [address] Hematology and Medical Oncology 10/01/18 Jaki Nieves, PhD [address] [facility] [address] [place] [address] Genetic Counseling 11/27/18 documented as of this encounter
--- OUTSIDE RECORDS SUMMARY | 2025-08-09 10:31 | XMS_ITS | Encounter Summary ---
Author Organization [facility] Address [address] [place] [address] Care Team Providers Care Account Manager Employee Benefits Name Role Phone Juan Laguerre MD Primary Care Provider [phone] Bro AWAN MD, Aubrey Lane Unavailable [phone] Jaki Nieves PhD Unavailable [phone] Source Comments In the event that this is information that is protected by federal Confidentiality of Substance User Disorder Patient Records, 42 CFR Part 2 prohibits the unauthorized disclosure of these records.[facility] Encounter Details Date Type Department Care Team (Late Contact Info) Description 12/05/2020 Orders Only NM Transplant Surgery [address] [facility], 19th Floor [address] [place] [address] Linette Almaguer RN Social History Tobacco Use [...] [address], [address] [place] [address] Apt confirmed-EH documented as of this encounter Procedures Procedure Name Priority Date/Time Associated Diagnosis Comments EVEROLIMUS LEVEL Routine 12/10/2020 6:34 AM YARDER OPERATOR URINALYSIS WITH MICROSCOPIC Routine 12/10/2020 6:34 AM YARDER OPERATOR CBC AND DIFFERENTIAL Routine 12/10/2020 6:34 AM YARDER OPERATOR HEPATIC FUNCTION PANEL Routine 12/10/2020 6:34 AM YARDER OPERATOR documented in this encounter Results * Everolimus Level (12/10/2020 6:34 AM YARDER OPERATOR) Everolimus Level - External 6.4 EXTERNAL LAB 12/10/2020 6:34 AM YARDER OPERATOR Narrative EXTERNAL LAB - 12/13/2020 1:53 PM YARDER OPERATOR Verified by Monie Siddiqui on 12/13/2020. us Cathleen Gallegos MD CHEMISTRY ORDERABLES Final Resul t EXTERNAL LAB * (ABNORMAL) Urinalysis with microscopic (12/10/2020 6:34 AM YARDER OPERATOR) Specific [place], Urine - External 1.010 1.003 - 1.035 [...] External NEG EXTERNAL LAB 12/10/2020 6:34 AM YARDER OPERATOR Narrative EXTERNAL LAB - 12/10/2020 12:41 PM YARDER OPERATOR Verified by Monie Siddiqui on 12/10/2020. Cathleen Gallegos MD URINE ORDERABLES Final Result Performing Organization Address [facility] de Phone Number EXTERNAL LAB * (ABNORMAL) Hepatic function panel (12/10/2020 6:34 AM YARDER OPERATOR) Total Bilirubin - External 0.3 0.0 - [...] 5.0 g/dL EXTERNAL LAB 12/10/2020 6:34 AM YARDER OPERATOR Narrative EXTERNAL LAB - 12/10/2020 12:41 PM YARDER OPERATOR Verified by Monie Siddiqui on 12/10/2020. Cathleen Gallegos MD CHEMISTRY ORDERABLES Final Resul t Performing Organization Address [facility] de Phone Number EXTERNAL LAB * (ABNORMAL) CBC with Differential (12/10/2020 6:34 AM YARDER OPERATOR) White Blood Cells - External 9.71 10(3)/mcL [...] Absolute - External 3.35(H) 10(3)/mcL EXTERNAL LAB [place] Absolute - External 1.14(H) 0.10 - 0.80 10(3)/mcL EXTERNAL LAB - External 0.22 0.00 - 0.30 10(3)/mcL EXTERNAL LAB Basophil Absolute - External 0.13(H) 0.00 - 0 10(3)/mcL EXTERNAL LAB Basophils - External 1.3 EXTERNAL LAB 12/10/2020 6:34 AM YARDER OPERATOR Narrative EXTERNAL LAB - 12/10/2020 12:41 PM YARDER OPERATOR Verified by Monie Siddiqui on 12/10/2020. us Cathleen Gallegos MD HEMATOLOGY ORDERABLES Final Resu lt EXTERNAL LAB documented in this encounter Visit Diagnoses Diagnosis 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 transplant documented in this encounter Care Teams Account Manager Employee Benefits Relationship Specialty Start Date End Date Juan Laguerre MD [address] [place] [address] PCP - General Family Medicine 01/02/18 Aubrey Carbtree III, MD [address] [address] Hematology and Medical Oncology 10/01/18 Jaki Nieves, PhD [address] [facility] [address] [place] [address] Genetic Counseling 11/27/18 documented as of this encounter
--- OUTSIDE RECORDS SUMMARY | 2025-08-09 10:31 | XMS_ITS | Encounter Summary ---
Author Organization [facility] Address [address] [place] [address] Care Team Providers Care Parts Coordinator Name Role Phone Juan Laguerre MD Primary Care Provider [phone] Bro AWAN MD, Aubrey Lane Unavailable [phone] Jaki Nieves PhD Unavailable [phone] Source Comments In the event that this is information that is protected by federal Confidentiality of Substance User Disorder Patient Records, 42 CFR Part 2 prohibits the unauthorized disclosure of these records.[facility] Encounter Details Date Type Department Care Team (Late st Contact Info) Description 10/23/2021 Orders Only NM Transplant Surgery [address] [facility], 19th [address] [place], [place] [address] Sandra Joiner, SPINNING MULE TENDER, AUTOMATION SOFTWARE ENGINEER [address] [facility] [address] [place] [address] Social History Tobacco Use Types Packs/Day Years [...] [address] [facility], [address] Floor [address] [place] [address] Apt confirmed-EH documented as of this encounter Visit Diagnoses Diagnosis 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) Liver replaced by transplant Kidney replaced by transplant documented in this encounter Care Teams Parts Coordinator Relationship Specialty Start Date End Date Juan Laguerre MD [address] [facility] [address] [place], [place] [id number] PCP - General Family Medicine 01/02/18 Aubrey Crabtree III, MD [address] [facility] [address] [place] [address] Hematology and Medical Oncology 10/01/18 Jaki Nieves, PhD [address] [facility] [address] [place], [place] [address] Genetic Counseling 11/27/18 documented as of this encounter
--- OUTSIDE RECORDS SUMMARY | 2025-08-09 10:31 | XMS_ITS | Encounter Summary ---
Author Organization [facility] Address [address] [place] [address] Care Team Providers Care Auto Dealership Porter Name Role Phone Juan Laguerre MD Primary Care Provider [phone] Bro AWAN MD, Aubrey Lane Unavailable [phone] Jaki Nivees PhD Unavailable [phone] Source Comments In the event that this [...] [facility], 19th [address] [place], [place] [address] Sandra Joiner, ICU REGISTERED NURSE, DAUB COLOR MIXER [address] [facility] [address] [place] [address] Social History Tobacco Use Types Packs/Day Years [...] [address] [place] [address] Apt confirmed-EH documented as of this encounter [...] PCR, Blood (06/23/2022 6:32 AM CDT) Pathologist [facility] BK Virus DNA, Qn PCR - External NOTDET EXTERNAL LAB 06/23/2022 6:32 AM CDT Narrative EXTERNAL LAB - 06/29/2022 2:30 PM CDT Verified by Monie Siddiqui on 06/29/2022. Edwin Del Toro MD IMMUNOLOGY ORDERABLES Joana l Result EXTERNAL LAB * BK Virus Quant Viral Load, Urine (06/23/2022 6:32 AM CDT) Pathologist [facility] BK Quantitation Urine - External 18,900 EXTERNAL LAB 06/23/2022 6:32 AM CDT Narrative EXTERNAL LAB - 06/29/2022 10:58 AM CDT Verified by Monie Siddiqui on 06/29/2022. Edwin Del Toro MD URINE ORDERABLES Final Res ult EXTERNAL LAB * Everolimus Level (06/23/2022 6:32 AM CDT) Pathologist [facility] Everolimus Level - External 7.3 EXTERNAL LAB 06/23/2022 6:32 AM CDT Narrative EXTERNAL LAB - 06/27/2022 3:24 PM CDT Verified by Monie Siddiqui on 06/27/2022. Edwin Del Toro MD CHEMISTRY ORDERABLES Final Result EXTERNAL LAB * (ABNORMAL) Mycophenolic Acid (06/23/2022 6:32 AM CDT) Pathologist [facility] Mycophenolic Acid - External 2.0(L) 10 - 35 ug/mL EXTERNAL LAB 06/23/2022 6:32 AM CDT Narrative EXTERNAL LAB - 06/27/2022 8:22 AM CDT Verified by Monie Siddiqui on 06/27/2022. Edwin Del Toro MD CHEMISTRY ORDERABLES Final Result Performing Organization Address [facility] de Phone Number EXTERNAL LAB * (ABNORMAL) Urinalysis with microscopic (06/23/2022 6:32 AM CDT) Specific [place], Urine - External 1.014 1.003 - 1.035 [...] ult Performing Organization Address [facility] de Phone Number EXTERNAL LAB * (ABNORMAL) PTH, Intact (06/23/2022 6:32 AM CDT) PTH, Intact - External 118(H) 14 - 72 pg/mL EXTERNAL LAB 06/23/2022 6:32 AM CDT Narrative EXTERNAL LAB - 06/24/2022 7:39 AM CDT Verified by Monie Siddiqui on 06/24/2022. Edwin Del Toro MD CHEMISTRY ORDERABLES Final Result Performing Organization Address [facility] de Phone Number EXTERNAL LAB * Vitamin D 25-Hydroxy (06/23/2022 6:32 AM CDT) Pathologist [facility] Vitamin D, 25-Hydroxy, Total - External 56 ng/mL EXTERNAL LAB Blood VEIN SPECIMEN / Unknown 06/23/2022 6:32 AM CDT Narrative EXTERNAL LAB - 06/24/2022 7:39 AM CDT Verified by Monie Siddiqui on 06/24/2022. Edwin Del Toro MD CHEMISTRY ORDERABLES Final Result Performing Organization Address [facility] de Phone Number EXTERNAL LAB * (ABNORMAL) Lipid Panel(AMA) w/LDL Calculated (06/23/2022 6:32 AM CDT) Pathologist [facility] Total Cholesterol - External 233(H) 0 - [...] Result Performing Organization Address [facility] de Phone Number EXTERNAL LAB [...] Absolute - External 3.81(H) 10(3)/mcL EXTERNAL LAB [place] Absolute - External 1.18(H) 10(3)/mcL EXTERNAL LAB [...] Phosphorus Level (06/23/2022 6:32 AM CDT) Pathologist [facility] Phosphorous - External 3.3 2.6 - 4.5 [...] deficiency documented in this encounter Care Teams Auto Dealership Porter Relationship Specialty Start Date End Date Juan Laguerre MD [address] [facility] [address] [place] [address] PCP - General Family Medicine 01/02/18 Aubrey Crabtree III, MD [address] [facility] [address] [place] [address] Hematology and Medical Oncology 10/01/18 Jaki Nieves, PhD [address] [facility] [address] [place] [address] Genetic Counseling 11/27/18 documented as of this encounter
--- OUTSIDE RECORDS SUMMARY | 2025-08-09 10:31 | XMS_ITS | Encounter Summary ---
Author Organization [facility] Address [address] [place] [address] Care Team Providers Care Family Lawyer Name Role Phone Juan Laguerre MD Primary Care Provider [phone] Bro AWAN MD, Aubrey Lane Unavailable [phone] Jaki Nieves PhD Unavailable [phone] Source Comments In the event that this [...] [address], [address] [place], [place] [address] Sandra Joiner, PLC TECHNICIAN, HAT CONDITIONER [address] [facility] [address] [place] [address] Social History Tobacco Use Types Packs/Day Years [...] [address] , [address] [place] [address] Apt confirmed-EH documented as of this encounter [...] ORDERABLES Joana l Result Performing Organization Address [facility] Co de Phone Number EXTERNAL LAB * Vitamin D 25-Hydroxy (03/10/2022 6:34 AM CDT) Vitamin D, 25-Hydroxy, Total - External 45 ng/mL EXTERNAL LAB 03/10/2022 6:34 AM CDT Narrative EXTERNAL LAB - 03/10/2022 10:08 PM CDT Verified by Monie Siddiqui on 03/10/2022. Edwin Del Toro MD CHEMISTRY ORDERABLES Final Result Performing Organization Address City/[facility] Co de Phone Number EXTERNAL LAB * (ABNORMAL) Urinalysis with microscopic (03/10/2022 6:34 AM CDT) Specific [place], Urine - External 1.016 EXTERNAL LAB UA [...] CHEMISTRY ORDERABLES Final Result Performing Organization Address [facility] de Phone Number EXTERNAL LAB * [...] CHEMISTRY ORDERABLES Final Result Performing Organization Address [facility] de Phone Number EXTERNAL LAB * Hepatic [...] CHEMISTRY ORDERABLES Final Result Performing Organization Address [facility] de Phone Number EXTERNAL LAB * Everolimus Level (03/10/2022 6:34 AM CDT) [facility] Everolimus Level - External 5.9 EXTERNAL LAB Blood VEIN SPECIMEN / Unknown 03/10/2022 6:34 AM CDT Narrative EXTERNAL LAB - 03/14/2022 2:00 PM CDT Verified by Monie Siddiqui on 03/14/2022. Edwin Del Toro MD CHEMISTRY ORDERABLES Final Result Performing Organization Address [facility] de Phone Number EXTERNAL LAB * (ABNORMAL) Mycophenolic Acid (03/10/2022 6:34 AM CDT) [facility] Mycophenolic Acid - External 2.1(L) 10 - 35 ug/mL EXTERNAL LAB Blood VEIN SPECIMEN / Unknown 03/10/2022 6:34 AM CDT Narrative EXTERNAL LAB - 03/14/2022 2:00 PM CDT Verified by Monie Siddiqui on 03/14/2022. 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 [address] [place] [address] Genetic Counseling 11/27/18 documented as of this encounter
--- OUTSIDE RECORDS SUMMARY | 2025-08-09 10:31 | XMS_ITS | Encounter Summary ---
Author Organization [facility] Address [address] [place] [address] Care Team Providers Care Electron Beam Operator Name Role Phone Juan Laguerre MD Primary Care Provider [phone] Bro AWAN MD, Aubrey Lane Unavailable [phone] Jaki Nieves PhD Unavailable [phone] Source Comments In the event that this is information that is protected by federal Confidentiality of Substance User Disorder Patient Records, 42 CFR Part 2 prohibits the unauthorized disclosure of these records.[facility] Encounter Details Date Type Department Care Team (Late st Contact Info) Description 09/25/2021 Orders Only NM Transplant Surgery [address] [facility], [address] [place], [place] [address] Sandra Joiner, PROMOTION MANAGER, MEDICAL CODING SPECIALIST [address] [facility] [address] [place] [address] Social History Tobacco Use Types Packs/Day Years [...] [address] [facility], [address] [place] [address] Apt confirmed-EH documented as of this encounter Procedures Procedure Name Priority Date/Time Associated Diagnosis Comments LIPID PANEL (AMA) W/LDL CALC Routine 10/07/2021 6:29 AM ADMINISTRATION PROFESSIONAL documented in this encounter Results * (ABNORMAL) Lipid Panel(AMA) w/LDL Calculated (10/07/2021 6:29 AM ADMINISTRATION PROFESSIONAL) Total Cholesterol - External 281(H) mg/dL EXTERNAL LAB HDL Cholesterol - External 38(L) 40 - 100 mg/dL EXTERNAL LAB Cholesterol LDL Direct - External 155(H) <130 mg/dL EXTERNAL LAB Triglycerides - External 527 EXTERNAL LAB 10/07/2021 6:29 AM ADMINISTRATION PROFESSIONAL Narrative EXTERNAL LAB - 10/07/2021 1:15 PM ADMINISTRATION PROFESSIONAL Verified by Monie Siddiqui on 10/07/2021. 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
--- OUTSIDE RECORDS SUMMARY | 2025-08-09 10:31 | XMS_ITS | Encounter Summary ---
Author Organization [facility] Address [address] [place] [address] Care Team Providers Care Coyote Hunter Name Role Phone Juan Laguerre MD Primary Care Provider [phone] Bro AWAN MD, Aubrey Lane Unavailable [phone] Jaki Nieves PhD Unavailable [phone] Source Comments In the event that this [...] [facility], [address]th [address] [place], [place] [address] Sandra Joiner, CHAPLAIN RESIDENT, PASSENGER ELEVATOR OPERATOR [address] [facility] [address] [place] [address] Social History Tobacco Use Types Packs/Day Years [...] [address], [address] [place] [address] Apt confirmed-EH documented as of this encounter Procedures Procedure Name Priority Date/Time Associated Diagnosis Comments BK VIRUS QUANT VIRAL LOAD, URINE Routine 12/30/2021 6:25 AM CHILD AND FAMILY THERAPIST EVEROLIMUS LEVEL Routine 12/30/2021 6:25 AM CHILD AND FAMILY THERAPIST URINALYSIS WITH MICROSCOPIC Routine 12/30/2021 6:25 AM CHILD AND FAMILY THERAPIST documented in this encounter Results * BK Virus Quant Viral Load, Urine (12/30/2021 6:25 AM CHILD AND FAMILY THERAPIST) BK Quantitation Urine - External 27,500 EXTERNAL LAB 12/30/2021 6:25 AM CHILD AND FAMILY THERAPIST Narrative EXTERNAL LAB - 01/07/2022 7:02 PM CHILD AND FAMILY THERAPIST Verified by Monie Siddiqui on 01/07/2022. Edwin Del Toro MD URINE ORDERABLES Final Res ult Performing Organization Address City/[facility]/ZIP Co de Phone Number EXTERNAL LAB * Everolimus Level (12/30/2021 6:25 AM CHILD AND FAMILY THERAPIST) Pathologist [facility] Everolimus Level - External 4.6 EXTERNAL LAB 12/30/2021 6:25 AM CHILD AND FAMILY THERAPIST Narrative EXTERNAL LAB - 01/01/2022 10:33 AM CHILD AND FAMILY THERAPIST Verified by Koki Burks on 01/01/2022. Physician Non-Staff CHEMISTRY ORDERABLES Final R esult Performing Organization Address City/[facility]/ZIP Co de Phone Number EXTERNAL LAB * (ABNORMAL) Urinalysis with microscopic (12/30/2021 6:25 AM CHILD AND FAMILY THERAPIST) Pathologist [facility] Specific [place], Urine - External 1.018 1.003 - 1.035 [...] 0-5, /hpf EXTERNAL LAB 12/30/2021 6:25 AM CHILD AND FAMILY THERAPIST Narrative EXTERNAL LAB - 12/30/2021 12:31 PM CHILD AND FAMILY THERAPIST Verified by Monie Siddiqui on 12/30/2021. us Edwin Del Toro MD URINE ORDERABLES Final Res ult EXTERNAL LAB documented in this encounter Visit Diagnoses Diagnosis 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) Liver replaced by transplant Kidney replaced by transplant documented in this encounter Care Teams Coyote Hunter Relationship Specialty Start Date End Date Juan Laguerre MD [address] [place] [address] PCP - General Family Medicine 01/02/18 Aubrey Crabtree III, MD [address] [place] [address] Hematology and Medical Oncology 10/01/18 Jaki Nieves, PhD [address] [facility] [address] [place] [address] Genetic Counseling 11/27/18 documented as of this encounter
--- OUTSIDE RECORDS SUMMARY | 2025-08-09 10:31 | XMS_ITS | Encounter Summary ---
Author Organization [facility] Address [address] [place] [address] Care Team Providers Care Analytics Specialist Name Role Phone Juan Laguerre MD Primary Care Provider [phone] Bro AWAN MD, Aubrey Lane Unavailable [phone] Jaki Nieves PhD Unavailable [phone] Source Comments In the event that this is information that is protected by federal Confidentiality of Substance User Disorder Patient Records, 42 CFR Part 2 prohibits the unauthorized disclosure of these records.[facility] Encounter Details Date Type Department Care Team (Late st Contact Info) Description 08/28/2021 Orders Only NM Transplant Surgery [address] [facility], 19th [address] [place], [place] [address] Sandra Joiner, PULLMAN CAR REPAIRER, INFO ANALYST [address] [facility] [address] [place] [address] Social History Tobacco Use Types Packs/Day Years [...] [facility], [address] [place] [address] Apt confirmed-EH documented as of this encounter Visit Diagnoses Diagnosis 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) 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
--- OUTSIDE RECORDS SUMMARY | 2025-08-09 10:31 | XMS_ITS | Encounter Summary ---
Author Organization [facility] Address [address] [place] [address] Care Team Providers Care Commissioner Conservation Of Resources Name Role Phone Juan Laguerre MD Primary Care Provider [phone] Bro AWAN MD, Aubrey Lane Unavailable [phone] Jaki Nieves PhD Unavailable [phone] Source Comments In the event that this is information that is protected by federal Confidentiality of Substance User Disorder Patient Records, 42 CFR Part 2 prohibits the unauthorized disclosure of these records.[facility] Encounter Details Date Type Department Care Team (Late st Contact Info) Description 02/12/2022 Orders Only NM Transplant Surgery [address] [facility], 19th [address] [place], [place] [address] Sandra Joiner, BIODIESEL ENGINEERING MANAGER, PAPER GRADER [address] [facility] [address] [place] [address] Social History Tobacco Use Types Packs/Day Years [...] [facility], [address]th [address] [place] [address] Apt confirmed-EH documented as of this encounter Visit Diagnoses Diagnosis Liver replaced by transplant (CMS-HCC) 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
--- OUTSIDE RECORDS SUMMARY | 2025-08-09 10:31 | XMS_ITS | Encounter Summary ---
Author Organization [facility] Address [address] [place] [address] Care Team Providers Care Assistant Director Of Public Works Name Role Phone Juan Laguerre MD Primary Care Provider [phone] Bro AWAN MD, Aubrey Lane Unavailable [phone] Jaki Nieves PhD Unavailable [phone] Source Comments In the event that this is information that is protected by federal Confidentiality of Substance User Disorder Patient Records, 42 CFR Part 2 prohibits the unauthorized disclosure of these records.[facility] Encounter Details Date Type Department Care Team (Late Contact Info) Description 10/10/2020 Orders Only NM Transplant Surgery [address] [facility], [address] [place] [address] Vivi Ponce Social History Tobacco Use Types [...] [facility], [address] [place], [place] [address] Apt confirmed-EH documented as of this encounter Visit Diagnoses Diagnosis 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
--- OUTSIDE RECORDS SUMMARY | 2025-08-09 10:31 | XMS_ITS | Encounter Summary ---
Author Organization [facility] Address [address] [place] [address] Care Team Providers Care Jewelry Consultant Name Role Phone Juan Laguerre MD Primary Care Provider [phone] Bro AWAN MD, Aubrey Lane Unavailable [phone] Jaki Nieves PhD Unavailable [phone] Source Comments In the event that this is information that is protected by federal Confidentiality of Substance User Disorder Patient Records, 42 CFR Part 2 prohibits the unauthorized disclosure of these records.[facility] Encounter Details Date Type Department Care Team (Late st Contact Info) Description 04/09/2022 Orders Only NM Transplant Surgery [address] [facility], 19th [address] [place], [place] [address] Sandra Joiner, YARN SPINNER, BAFFLE MOUNTER [address] [facility] [address] [place] [address] Social History Tobacco Use Types Packs/Day Years [...] Office Visit NM Transplant Surgery [address] [facility], [address] [place] [address] Apt confirmed-EH documented as of this encounter Visit Diagnoses Diagnosis Liver replaced by transplant (CMS-HCC) 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
--- OUTSIDE RECORDS SUMMARY | 2025-08-09 10:31 | XMS_ITS | Encounter Summary ---
Author Organization [facility] Address [address] [place] [address] Care Team Providers Care Account Manager Employee Benefits Name Role Phone Juan Laguerre MD Primary Care Provider [phone] Bro AWAN MD, Aubrey Lane Unavailable [phone] Jaki Nieves PhD Unavailable [phone] Source Comments In the event that this is information that is protected by federal Confidentiality of Substance User Disorder Patient Records, 42 CFR Part 2 prohibits the unauthorized disclosure of these records.[facility] Encounter Details Date Type Department Care Team (Late Contact Info) Description 02/27/2021 Orders Only NM Transplant Surgery [address] [facility], [address] [place] [address] Linette Almaguer RN Social History Tobacco Use [...] [address], [address] [place] [address] Apt confirmed-EH documented as of this encounter [...] Resul t Performing Organization Address [facility] Co de Phone Number EXTERNAL LAB * (ABNORMAL) Urinalysis with microscopic (03/18/2021 6:25 AM CDT) Specific [place], Urine - External 1.013 1.003 - 1.035 [...] URINE ORDERABLES Final Result Performing Organization Address City/[facility]/ZIP Co de Phone Number EXTERNAL LAB [...] Absolute - External 2.79 10(3)/mcL EXTERNAL LAB [place] Absolute - External 1.14(H) 0.10 - 0.80 [...] Laguerre MD [address] [facility] [address] [place] [address] PCP - General Family Medicine 01/02/18 Aubrey Crabtree III, MD [address] [facility] [address] [place] [id number] Hematology and Medical Oncology 10/01/18 Jaki Nieves, PhD [address] [facility] [address] [place] [address] Genetic Counseling 11/27/18 documented as of this encounter
--- OUTSIDE RECORDS SUMMARY | 2025-08-09 10:31 | XMS_ITS | Encounter Summary ---
Author Organization [facility] Address [address] [place] [address] Care Team Providers Care Safekeeping Clerk Name Role Phone Juan Laguerre MD Primary Care Provider [phone] Bro AWAN MD, Aubrey Lane Unavailable [phone] Jaki Nieves PhD Unavailable [phone] Source Comments In the event that this is information that is protected by federal Confidentiality of Substance User Disorder Patient Records, 42 CFR Part 2 prohibits the unauthorized disclosure of these records.[facility] Encounter Details Date Type Department Care Team (Late st Contact Info) Description 05/07/2022 Orders Only NM Transplant Surgery [address] [facility], 19[address] [place], [place] [address] Sandra Joiner, BARBECUE COOK, DIE CASTING MACHINE SETTER [address] [facility] [address] [place] [address] Social History Tobacco Use Types Packs/Day Years [...] [address] [place] [address] Apt confirmed-EH documented as of this encounter [...] Load, Urine (05/12/2022 6:25 AM CDT) Pathologist [facility] BK Quantitation Urine - External 50,200 EXTERNAL LAB 05/12/2022 6:25 AM CDT Narrative EXTERNAL LAB - 05/16/2022 3:53 PM CDT Verified by Monie Siddiqui on 05/16/2022. Edwin Del Toro MD URINE ORDERABLES Final Res ult EXTERNAL LAB * (ABNORMAL) Mycophenolic Acid (05/12/2022 6:25 AM CDT) Pathologist [facility] Mycophenolic Acid - External 2.8(L) 10 - 35 ug/mL EXTERNAL LAB 05/12/2022 6:25 AM CDT Narrative EXTERNAL LAB - 05/16/2022 9:34 AM CDT Verified by Monie Siddiqui on 05/16/2022. Edwin Del Toro MD CHEMISTRY ORDERABLES Final Result EXTERNAL LAB * Everolimus Level (05/12/2022 6:25 AM CDT) Pathologist [facility] Everolimus Level - External 5.8 EXTERNAL LAB 05/12/2022 6:25 AM CDT Narrative EXTERNAL LAB - 05/15/2022 2:22 PM CDT Verified by Monie Siddiqui on 05/15/2022. Edwin Del Toro MD CHEMISTRY ORDERABLES Final Result Performing Organization Address [facility] de Phone Number EXTERNAL LAB * Vitamin D 25-Hydroxy (05/12/2022 6:25 AM CDT) Vitamin D, 25-Hydroxy, Total - External 43 ng/mL EXTERNAL LAB 05/12/2022 6:25 AM CDT Narrative EXTERNAL LAB - 05/13/2022 6:33 PM CDT Verified by Monie Siddiqui on 05/13/2022. Edwin Del Toro MD CHEMISTRY ORDERABLES Final Result Performing Organization Address [facility] Phone Number EXTERNAL LAB * (ABNORMAL) Urinalysis with microscopic (05/12/2022 6:25 AM CDT) Specific [place], Urine - External 1.013 EXTERNAL LAB UA [...] ORDERABLES Final Res ult Performing Organization Address [facility] de Phone Number EXTERNAL LAB * (ABNORMAL) PTH, Intact (05/12/2022 6:25 AM CDT) PTH, Intact - External 86(H) 14 - 72 pg/mL EXTERNAL LAB 05/12/2022 6:25 AM CDT Narrative EXTERNAL LAB - 05/13/2022 6:33 PM CDT Verified by Monie Siddiqui on 05/13/2022. Edwin Del Toro MD CHEMISTRY ORDERABLES Final Result Performing Organization Address [facility] de Phone Number EXTERNAL LAB * (ABNORMAL) Lipid Panel(AMA) w/LDL Calculated (05/12/2022 6:25 AM CDT) Pathologist [facility] Total Cholesterol - External 229(H) 0 - [...] CHEMISTRY ORDERABLES Final Result Performing Organization Address [facility] de Phone Number EXTERNAL LAB * (ABNORMAL) CBC with Differential (05/12/2022 6:25 AM CDT) Pathologist [facility] White Blood Cells - External 10.88 10(3)/mcL [...] Absolute - External 4.06(H) 10(3)/mcL EXTERNAL LAB [place] Absolute - External 1.38(H) 10(3)/mcL EXTERNAL LAB [...] ORDERABLES Joana l Result Performing Organization Address [facility] de Phone Number EXTERNAL LAB * (ABNORMAL) Phosphorus Level (05/12/2022 6:25 AM CDT) Phosphorous - External 2.4(L) mg/dL EXTERNAL LAB Blood VEIN SPECIMEN / Unknown 05/12/2022 6:25 AM CDT Narrative EXTERNAL LAB - 05/13/2022 6:33 PM CDT Verified by Monie Siddiqui on 05/13/2022. Edwin Del Toro MD CHEMISTRY ORDERABLES Final Result Performing Organization Address City/[facility]/ZIP Co de Phone Number EXTERNAL LAB [...] transplant documented in this encounter Care Teams Safekeeping Clerk Relationship Specialty Start Date End Date Juan Laguerre MD [address] [place] [address] PCP - General Family Medicine 01/02/18 Aubrey Crabtree III, MD [address] [place] [address] Hematology and Medical Oncology 10/01/18 Jaki Nieves, PhD [address] [facility] [address] [place] [address] Genetic Counseling 11/27/18 documented as of this encounter
--- OUTSIDE RECORDS SUMMARY | 2025-08-09 10:31 | XMS_ITS | Encounter Summary ---
Author Organization [facility] Address [address] [place] [address] Care Team Providers Care Pipe Chipper Name Role Phone Juan Laguerre MD Primary Care Provider [phone] Bro AWAN MD, Aubrey Lane Unavailable [phone] Jaki Nieves PhD Unavailable [phone] Source Comments In the event that this [...] [facility] [place], [place] [address] Sandra Joiner, COMBINATION BUILDING INSPECTOR, PRIMER INSERTING MACHINE ADJUSTER [address] [facility] [address] [place] [address] Social History Tobacco Use Types Packs/Day Years [...] [address], [address] [place] [address] Apt confirmed-EH documented as of this encounter Procedures Procedure Name Priority Date/Time Associated Diagnosis Comments BK VIRUS DNA QUANT PCR, BLOOD Routine 01/13/2022 8:43 AM CHARGE POSTER BK VIRUS QUANT VIRAL LOAD, URINE Routine 01/13/2022 6:43 AM CHARGE POSTER EVEROLIMUS LEVEL Routine 01/13/2022 6:43 AM CHARGE POSTER PTH, INTACT Routine 01/13/2022 6:43 AM CHARGE POSTER MYCOPHENOLIC ACID Routine 01/13/2022 6:4 3 AM CHARGE POSTER VITAMIN D 25-HYDROXY Routine 01/13/2022 6:43 AM CHARGE POSTER URINALYSIS WITH MICROSCOPIC Routine 01/13/2022 6:43 AM CHARGE POSTER CBC AND DIFFERENTIAL Routine 01/13/2022 6:43 AM CHARGE POSTER 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) Kidney replaced by transplant PHOSPHORUS LEVEL Routine 01/13/2022 6:43 AM CHARGE POSTER 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 Edwin Del Toro MD IMMUNOLOGY ORDERABLES Joana l Result EXTERNAL LAB * BK Virus Quant Viral Load, Urine (01/13/2022 6:43 AM CHARGE POSTER) BK Quantitation Urine - External 16,500 EXTERNAL LAB 01/13/2022 6:43 AM CHARGE POSTER Narrative EXTERNAL LAB - 01/21/2022 6:09 PM CDT Verified by Monie Siddiqui on 01/21/2022. Edwin Del Toro MD URINE ORDERABLES Final Res ult Performing Organization Address City/[facility]/ZIP Co de Phone Number EXTERNAL LAB * Mycophenolic Acid (01/13/2022 6:43 AM CHARGE POSTER) Mycophenolic Acid - External 2.3 1.0 - 3.5 ug/mL EXTERNAL LAB 01/13/2022 6:43 AM CHARGE POSTER Narrative EXTERNAL LAB - 01/16/2022 2:08 PM CDT Verified by Monie Siddiqui on 01/16/2022. Edwin Del Toro MD CHEMISTRY ORDERABLES Final Result EXTERNAL LAB * Everolimus Level (01/13/2022 6:43 AM CHARGE POSTER) Everolimus Level - External 4.9 EXTERNAL LAB 01/13/2022 6:43 AM CHARGE POSTER Narrative EXTERNAL LAB - 01/15/2022 12:18 PM CDT Verified by Koki Burks on 01/15/2022. Physician Non-Staff CHEMISTRY ORDERABLES Final R esult Performing Organization Address [facility] de Phone Number EXTERNAL LAB * Vitamin D 25-Hydroxy (01/13/2022 6:43 AM CHARGE POSTER) Vitamin D, 25-Hydroxy, Total - External 34 ng/mL EXTERNAL LAB 01/13/2022 6:43 AM CHARGE POSTER Narrative EXTERNAL LAB - 01/14/2022 5:49 PM CDT Verified by Monie Siddiqui on 01/14/2022. Edwin Del Toro MD CHEMISTRY ORDERABLES Final Result Performing Organization Address [facility] de Phone Number EXTERNAL LAB * (ABNORMAL) Urinalysis with microscopic (01/13/2022 6:43 AM CHARGE POSTER) Specific [place], Urine - External 1.015 EXTERNAL LAB UA [...] External 0-5 EXTERNAL LAB 01/13/2022 6:43 AM CHARGE POSTER Narrative EXTERNAL LAB - 01/14/2022 5:49 PM CDT Verified by Monie Siddiqui on 01/14/2022. Edwin Del Toro MD URINE ORDERABLES Final Res ult Performing Organization Address [facility] de Phone Number EXTERNAL LAB * PTH, Intact (01/13/2022 6:43 AM CHARGE POSTER) PTH, Intact - External 72 14 - 72 pg/mL EXTERNAL LAB 01/13/2022 6:43 AM CHARGE POSTER Narrative EXTERNAL LAB - 01/14/2022 3:33 PM CDT Verified by Monie Siddiqui on 01/14/2022. Edwin Del Toro MD CHEMISTRY ORDERABLES Final Result Performing Organization Address [facility] de Phone Number EXTERNAL LAB * (ABNORMAL) Lipid Panel(AMA) w/LDL Calculated (01/13/2022 6:43 AM CHARGE POSTER) [facility] Total Cholesterol - External 234(H) 0 - 199 mg/dL EXTERNAL LAB Triglycerides - External 398(H) 0 - 149 mg/dL EXTERNAL LAB HDL Cholesterol - External 41 40 - 100 mg/dL EXTERNAL LAB Cholesterol LDL Direct - External 113 <130 mg/dL EXTERNAL LAB 01/13/2022 6:43 AM CHARGE POSTER Narrative EXTERNAL LAB - 01/14/2022 3:33 PM CDT Verified by Monie Siddiqui on 01/14/2022. Edwin Del Toro MD CHEMISTRY ORDERABLES Final Result Performing Organization Address [facility] de Phone Number EXTERNAL LAB * (ABNORMAL) CBC with Differential (01/13/2022 6:43 AM CHARGE POSTER) [facility] White Blood Cells - External 10.44 [...] LAB Monocytes - External 12.5 EXTERNAL LAB [place] Absolute - External 1.30(H) 0.10 - 0.80 10(3)/mcL EXTERNAL LAB Lymph Absolute - External 3.7 10(3)/mcL EXTERNAL LAB Blood VEIN SPECIMEN / Unknown 01/13/2022 6:43 AM CHARGE POSTER Narrative EXTERNAL LAB - 01/14/2022 3:33 PM CDT Verified by Monie Siddiqui on 01/14/2022. Edwin Del Toro MD HEMATOLOGY ORDERABLES Joana l Result EXTERNAL LAB * Phosphorus Level (01/13/2022 6:43 AM CHARGE POSTER) Phosphorous - External 3.2 2.6 - 4.5 mg/dL EXTERNAL LAB Blood VEIN SPECIMEN / Unknown 01/13/2022 6:43 AM CHARGE POSTER Narrative EXTERNAL LAB - 01/14/2022 3:33 PM CDT Verified by Monie Siddiqui on 01/14/2022. Edwin Del Toro MD CHEMISTRY ORDERABLES Final Result EXTERNAL LAB * (ABNORMAL) Comprehensive Metabolic Panel (01/13/2022 6:43 AM CHARGE POSTER) Chloride - External 106 96 - 108 [...] VEIN SPECIMEN / Unknown 01/13/2022 6:43 AM CHARGE POSTER Narrative EXTERNAL LAB - 01/14/2022 3:33 PM CDT Verified by Monie Siddiqui on 01/14/2022. 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) Liver replaced by transplant Kidney replaced by transplant documented in this encounter Care Teams Pipe Chipper Relationship Specialty Start Date End Date Juan Laguerre MD [address] [facility] [address] [place] [address] PCP - General Family Medicine 01/02/18 Aubrey Crabtree III, MD [address] [facility] [address] [place] [address] Hematology and Medical Oncology 10/01/18 Jaki Nieves, PhD [address] [facility] [address] [place] [address] Genetic Counseling 11/27/18 documented as of this encounter
--- OUTSIDE RECORDS SUMMARY | 2025-08-09 10:31 | XMS_ITS | Encounter Summary ---
Author Organization [facility] Address [address] [place] [address] Care Team Providers Care Drafting Clerk Name Role Phone Juan Laguerre MD Primary Care Provider [phone] Bro AWAN MD, Aubrey Lane Unavailable [phone] Jaki Nieves PhD Unavailable [phone] Source Comments In the event that this is information that is protected by federal Confidentiality of Substance User Disorder Patient Records, 42 CFR Part 2 prohibits the unauthorized disclosure of these records.[facility] Encounter Details Date Type Department Care Team (Late Contact Info) Description 01/30/2021 Orders Only [place] Transplant Surgery [address] [facility] [place] [address] Linette Almaguer RN Social History Tobacco Use [...] [address] [place] [address] A[address] documented as of this encounter [...] 3.3 0.8 - 40 10*3/uL EXTERNAL LAB [facility] - External 1.2 0.2 - 1.2 [...] ORDERABLES Final Resu lt Performing Organization Address City/[facility]/ZIP Co de Phone Number EXTERNAL LAB * Carbohydrate Antigen 19-9 (02/06/2021 12:00 AM CDT) CA 19 9 - External 10 EXTERNAL LAB 02/06/2021 Narrative EXTERNAL LAB - 02/20/2021 2:43 PM CDT Verified by Monie Siddiqui on 02/17/2021. Rell Painting MD IMMUNOLOGY ORDERABLES Final Result Performing Organization Address [facility] Co de Phone Number EXTERNAL LAB * Vitamin B12 (02/06/2021 12:00 AM CDT) Pathologist [facility] Vitamin B12 - External 1,388 EXTERNAL LAB 02/06/2021 Narrative EXTERNAL LAB - 02/20/2021 2:43 PM CDT Verified by Monie Siddiqui on 02/17/2021. Rell Painting MD CHEMISTRY ORDERABLES Final Result Performing Organization Address City/[facility]/ZIP Co de Phone Number EXTERNAL LAB [...] ORDERABLES Final Result Performing Organization Address City/[facility] Co de Phone Number EXTERNAL LAB * Urinalysis with microscopic (02/06/2021 12:00 AM CDT) UA Color - External YELLOW EXTERNAL LAB UA Appearance - External CLEAR EXTERNAL LAB UA Glucose - External 3+ EXTERNAL LAB UA Bilirubin - External NEG EXTERNAL LAB UA Ketones - External NEG EXTERNAL LAB Specific Wall, Urine - External 1.020 EXTERNAL LAB UA [...] ORDERABLES Final Resu lt Performing Organization Address City/[facility] de Phone Number EXTERNAL LAB documented in this encounter Visit Diagnoses Diagnosis 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 transplant documented in this encounter Care Teams Drafting Clerk Relationship Specialty Start Date End Date Juan Laguerre MD [address] [facility] [address] [place] [id number] PCP - General Family Medicine 01/02/18 Aubrey Crabtree III, MD [address] [facility] [address] [place] [id number] Hematology and Medical Oncology 10/01/18 Jaki Nieves, PhD [address] [facility] [address] [place] [address] Genetic Counseling 11/27/18 documented as of this encounter
[2025-08-09 10:46] LABS: Influenza A QL RT-PCR Negative (Negative); Influenza B QL RT-PCR Negative (Negative); RSV RNA, RT-PCR Negative (Negative); SARS-CoV-2 RNA PCR Negative (Negative)
[2025-08-09] MEDS: SODIUM CHLORIDE 0.9% IV 1,000 ML 999 ML IV CONT (10:51)
[2025-08-09 10:53] VITALS: BP 136/86; PULSE 62; RESP 18; O2SAT 98
[2025-08-09] MEDS: ACETAMINOPHEN 500 MG TABLET 1000 MG PO (11:11)
[2025-08-09 12:02] LABS: Anisocytosis 1+; Microcytosis Occasional (NORMAL); Schistocytes None Seen
[2025-08-09 12:36] VITALS: BP 157/85; PULSE 73; RESP 18; O2SAT 100
== END 2025-08-09 12:38 | disposition home or self-care (01) ==
PROVIDERS: Emergency Provider Nurse Practitioner Family; PCP Nurse Practitioner
DX: N18.9 Chronic kidney disease, unspecified (principal); E11.22 Type 2 diabetes mellitus with diabetic chronic kidney disease; E11.65 Type 2 diabetes mellitus with hyperglycemia; R53.83 Other fatigue; Z20.822 Contact with and (suspected) exposure to COVID-19; I48.91 Unspecified atrial fibrillation; Z94.4 Liver transplant status; Z85.07 Personal history of malignant neoplasm of pancreas
CPT/HCPCS: 36415; 73610; 80053; 82948; 83605; 85025; 85652; 86140; 87637; 96360; 99283; A9270; J7030